=== PATIENT | female | born 1955 | race Caucasian/White ===

== ENCOUNTER 2022-06-20 13:39 | Emergency (ER) | payer MEDICARE, OTHER, SELFPAY ==
[2022-06-20] VITALS (11 sets, daily range): BP systolic 65–102; BP diastolic 39–55; PULSE 57–75; RESP 12–20; O2SAT 94–96; BMI 27.3
--- NOTE | 2022-06-20 14:07 | ECG_ITS ---
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 Measurements Intervals Snyder Rate: 75 P: 31 NH: 143 QRS: 28 QRSD: 93 T: 37 QT: 392 QTc: 438 Interpretive Statements SINUS RHYTHM MODERATE ST DEPRESSION [0.05+ mV ST DEPRESSION] Compared to ECG 12/06/2018 13:33:14 ST (T wave) deviation now present T-wave abnormality no longer present Electronically Signed On 06-20-2022 20:17:15 CDT by Brayden Figueroa M.D. [id number]
[2022-06-20] MEDS: sodium chloride 0.9% 1,000 ML 999 ML IV ×2 (14:13→14:49)
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
[2022-06-20 14:34] LABS: Basophils # 0.1 10^3/uL (0.0-0.1); Eosinophils # 0.4 10^3/uL (0.0-0.8); Eosinophils % 3.2 %; Hematocrit 46.3 % (37.0-47.0); Hemoglobin 16.2 g/dL (11.5-15.3); Lymphocytes # 5.7 10^3/uL (0.8-4.8); Lymphocytes % 51.2 %; Mean Corpuscular Hemoglobin 31.8 pg (28.0-34.0); Mean Platelet Volume 12.6 fL (7.4-10.4); Monocytes # 0.4 10^3/uL (0.2-0.9); Monocytes % 3.5 %; Neutrophils % 40.9 %; Nucleated Red Blood Cells % 0 %; Platelet Count 221 10^3/cmm (130-400); Red Blood Count 5.09 10^6/uL (4.1-5.3); Red Cell Distribution Width 12.9 % (12.1-15.1); White Blood Count 11.2 10^3/uL (4.0-10.0)
[2022-06-20 14:46] LABS: Alanine Aminotransferase 107 U/L (0-33); Albumin Level 4.7 g/dL (3.5-5.2); Alkaline Phosphatase 109 IU/L (35-105); Anion Gap 21.2 (5-19); Aspartate Amino Transferase 94 U/L (0-32); Blood Urea Nitrogen 17 mg/dL (8-23); Calcium 10.5 mg/dL (8.5-10.5); Carbon Dioxide 18 mmol/L (22-29); Chloride 97 mmol/L (98-107); Globulin 3.4 g/dL (1.3-4.6); Glomerular Filtration Rate 34.6 mL/min (90-130); Glucose 214 mg/dL (65-115); Magnesium 2.2 mg/dL (1.7-2.3); Osmolality Calculated 282 mOsm/kg (285-295); Potassium 4.2 mmol/L (3.5-5.1); Sodium 132 mmol/L (136-145); Total Bilirubin 0.6 mg/dL (0.15-1.2); Total Protein 8.1 g/dL (6.6-8.7)
[2022-06-20 15:18] LABS: Lactate (Lactic Acid level) 2.2 mmol/L (0.5-2.2)
[2022-06-20 16:02] LABS: Add Urine Microscopic? YES; Amphetamines Screen Urine Negative (Negative); Barbiturates Screen Urine Negative (Negative); Benzodiazepines Screen Urine Negative (Negative); Bilirubin Urine Neg (Negative); Blood Urine 3+ (Negative); Cocaine Screen Urine Negative (Negative); Glucose Urine UA 4+ (Normal); Ketones Urine Negative (Negative); Leukocyte Esterase Urine Trace (Negative); Nitrate Urine Negative (Negative); Opiate Screen Urine Negative (Negative); PCP Screen Urine Negative (Negative); Protein Urine 1+ (Negative); THC Screen Urine Negative (Negative); Urine Appearance Cloudy (CLEAR); Urine Color Yellow (Yellow); Urobilinogen Urine Norm (Negative); pH Urine 5 (5-7)
[2022-06-20 16:03] LABS: Bacteria Urine 4+ /hpf; Squamous Epithelial Cell Urine 0-4 /hpf (0-5); WBC Urine 15-25 /hpf (0-5)
[2022-06-20 16:04] LABS: Add Urine Culture? Yes
== END 2022-06-20 16:16 | disposition home or self-care (01) ==
PROVIDERS: Emergency Provider Student in an Organized Health Care Education/Training Program; PCP Internal Medicine
DX: N30.01 Acute cystitis with hematuria (principal); E86.0 Dehydration; Z79.02 Long term (current) use of antithrombotics/antiplatelets; Z79.82 Long term (current) use of aspirin; Z79.4 Long term (current) use of insulin; J44.9 Chronic obstructive pulmonary disease, unspecified; E13.9 Other specified diabetes mellitus without complications; E78.5 Hyperlipidemia, unspecified; I10 Essential (primary) hypertension; I25.2 Old myocardial infarction; F17.210 Nicotine dependence, cigarettes, uncomplicated; V89.2XXA Person injured in unspecified motor-vehicle accident, traffic, initial encounter
CPT/HCPCS: 80053; 80306; 81001; 83605; 83735; 85025; 86140; 87077; 87086; 87186; 93005; 96360; 96361; 99284; J7030

== ENCOUNTER 2022-06-30 17:57 | Emergency (ER) | payer MEDICARE, OTHER, SELFPAY ==
[2022-06-30 18:01] VITALS: BP 111/75; PULSE 63; RESP 17; TEMP 36.9; O2SAT 92; BMI 31.1
--- NOTE | 2022-06-30 18:14 | ED_ITS ---
HPI - General Adult General: Chief complaint: Neuro Symptoms/Deficit Stated complaint: AMS, DIABETIC Time Seen by Provider: 06/30/22 18:03 History of Present Illness: Patient is a 67-year-old female with a history of type 2 diabetes, CAD on Plavix presenting to the emergency room for concerns of hypoglycemia and altered mental status. Patient noted her glucose was running over 200s today. Patient took 16 units of short acting insulin shortly after, patient became obtunded. Patient is on found patient unresponsive and called EMS. When EMS arrived, patient had glucose of 74. Patient patient received a drip of D10 with improved glucose over 200. Patient now responsive alert and oriented and speaking. Patient denies any other concerns. His family report the patient was found on the ground. Since EMS administered patient with a D10 patient regained consciousness, patient has been unable to bear weight on the right foot which she claims she twisted earlier as she was falling. Onset:earlier today Duration:ongoing Location:home Severity:moderate Associated symptoms: Deny chest pain, dyspnea, nausea, rash, palpitations or vomiting Review of Systems Const: Denies: fever(s) or chills Eyes: Denies: change in vision ENMT: Denies: mouth pain Card: Denies: chest pain or palpitations Resp: Denies: dyspnea or non-productive cough GI: Denies: abdominal pain, nausea, vomiting or diarrhea : Denies: dysuria Musc: Reports: extremity pain (+R ankle pain and swelling) Skin/Breast: Denies: rash or new lesions Neuro: Denies: weakness in extremities Psych: Reports: other (Normal mood) Carlos/Lymph: Denies: easy bruising [facility] ED PFSH: Medical History (Updated 06/30/22 @ 21:44 by Lokesh Odom DPM) ASHD (arteriosclerotic heart disease) COPD (chronic obstructive pulmonary disease) Diabetes 1.5, managed as type 2 Dyslipidemia Essential hypertension Myocardial infarction Tobacco abuse Surgical History S/P PTCA (percutaneous transluminal coronary angioplasty) Family History Other CAD (coronary artery disease) Cancer Diabetes Social History Smoking and tobacco status: current every day smoker cigarettes Alcohol intake: never Physical Exam Const: COMMON NORMALS: alert HENMT: COMMON NORMALS: atraumatic HEAD & SCALP: atraumatic MOUTH: moist mucous membranes not abnormal Eye: COMMON NORMALS: EOMs intact bilaterally and conjunctivae normal CONJUNCTIVA: Yes conjunctivae normal Neck/C-Spine: COMMON NORMALS: full ROM and supple Resp: COMMON NORMALS: normal respiratory effort and clear to auscultation bilaterally AUSCULTATION: clear to auscultation bilaterally Cardio: COMMON NORMALS: regular rate RATE: regular rate GI: COMMON NORMALS: Soft to palpation and non-tender PALPATION: Yes Soft to palpation Extremity: COMMON NORMALS: full ROM OTHER: + Right ankle swelling and deformity, 2+ DP/TP pulses on the right lower extremity, cap refill less than 3 seconds, sensation intact in the right lower extremity, limited range of motion right ankle due to pain Neuro: SENSORIUM/ORIENTATION: Yes alert MOTOR EXAM: No Abnormal motor strength present and Other motor observations present (no focal motor deficits) OTHER: +transient altered mental status Psych: COMMON NORMALS: speech normal SPEECH: Yes normal speech MOOD & AFFECT: Yes euthymic mood Course Vital Signs: Vital signs: Vital Signs Temperature 98.4 F 06/30/22 18:01 Pulse Rate 74 06/30/22 21:00 Respiratory Rate 16 06/30/22 21:51 Blood Pressure 107/55 06/30/22 21:00 Pulse Oximetry 96 06/30/22 21:00 Oxygen Delivery Me thod 06/30/22 19:27 MDM - General Adult Medical Decision Making 67-year-old female with history of type 2 diabetes presenting to the emergency room for concerns of altered mental status and hypoglycemia transiently. On arrival, patient is AAOx3, answering all questions appropriately. Patient is neurologically intact. Patient is noted to have hypotension with blood pressure 82/44. Heart rate appears to be normal. Patient initially on arrival had a glucose greater than 120. Patient received NS and repeat blood pressure appears to be improving. Lab work-up is largely unremarkable. X-ray of the foot showed trimalleolar fracture. CT of the head is negative for any acute finding. I discussed with Dr. Odom who performed a hematoma block in the emergency room and reduce the trimalleolar fracture and placed patient in a splint. Dr. Odom would like patient to be seen in clinic tomorrow. Patient's glucose improved on serial reassessment. The fact the patient took novolog 6 hours and patient has multiple serial readings of glucoses with improvement, patient is stable for close outpatient follow-up. I have given patient follow up with our piano case maker to be seen by our outpatient Podiatry for trimalleolar fx. Patient aware of a call from our piano case maker to schedule for appointment(s) and verbalizes understanding of the importance of following up. Disposition: Discharge. Patient counseled regarding diagnostic impression, treatment plan. Patient given ED strict return precautions to return for continuation, worsening, or development of new symptoms. Instructed to f/u w/ PCP and podiatry regarding symptoms today. Patient verbalized understanding. Lab Data : 06/30/22 18:30 06/30/22 18:30 Radiology Impressions Foot X-Ray 06/30/22 18:21 IMPRESSION: 1. Trimalleolar fracture previously described on ankle radiographs. 2. No additional fracture, subluxation, or dislocation detected. Ankle X-Ray 06/30/22 20:24 IMPRESSION: Previously noted tri malleolar fractures have been reduced with significant improvement in alignment of fracture fragments. Minimal cortical step-off remains. Laboratory Results WBC 12.8 10^3/uL (4.0-10.0) H 06/30/22 18: RBC 4.34 10^6/uL (4.1-5.3) 06/30/22 18:30 Hgb 14.0 g/dL (11.5-15.3) 06/30/22 18: Hct 43.0 % (37.0-47.0) 06/30/22 18: MCV 99.1 fl (81-99) H 06/30/22 18:30 MCH 32.3 pg (28.0-34.0) 06/30/22 18: MCHC 32.6 g/dL (30.0-36.0) 06/30/22 18: RDW 14.2 % (12.1-15.1) 06/30/22 18: Plt Count 187 10^3/cmm (130-400) 06/30/22 18: MPV 12.5 fL (7.4-10.4) H 06/30/22 18: Neut % (Auto) 67.9 % 06/30/22 18:30 Lymph % (Auto) 23.5 % 06/30/22 18:30 [place] % (Auto) 4.3 % 06/30/22 18:30 Eos % (Auto) 3.0 % 06/30/22 18:30 Baso % (Auto) 0.8 % 06/30/22 18:30 Neut # (Auto) 8.72 10^3/uL (1.8-7.7) H 06/30/22 18:30 Lymph # (Auto) 3.0 10^3/uL (0.8-4.8) 06/30/22 18:30 [place] # (Auto) 0.6 10^3/uL (0.2-0.9) 06/30/22 18:30 Eos # (Auto) 0.4 10^3/uL (0.0-0.8) 06/30/22 18:30 Baso # (Auto) 0.1 10^3/uL (0.0-0.1) 06/30/22 18:30 Nucleated RBC % (auto) 0 % 06/30/22 18: Nucleated RBCs # 0.0 /100WBC 06/30/22 18:30 Sodium 140 mmol/L (136-145) 06/30/22 18: Potassium 3.5 mmol/L (3.5-5.1) 06/30/22 18:30 Chloride 100 mmol/L (98-107) 06/30/22 18: Carbon Dioxide 24 mmol/L (22-29) 06/30/22 18:30 Anion Gap 19.5 (5-19) H 06/30/22 18:30 BUN 10 mg/dL (8-23) 06/30/22 18:30 Creatinine 1.4 mg/dL (0.5-0.9) H 06/30/22 18:30 GFR Calculation 37.5 mL/min (90-130) L 06/30/22 18: Glucose 79 mg/dL (65-115) 06/30/22 18: POC Glucose 202 mg/dL (70-110) H 06/30/22 21:12 Calculated Osmolality 288 mOsm/kg (285-295) 06/30/22 18: Calcium 9.7 mg/dL (8.5-10.5) 06/30/22 18:30 Total Bilirubin 0.6 mg/dL (0.15-1.2) 06/30/22 18:30 AST 86 U/L (0-32) H 06/30/22 18:30 ALT 63 U/L (0-33) H 06/30/22 18:30 Alkaline Phosphatase 79 IU/L (35-105) 06/30/22 18:30 Total Protein 7.0 g/dL (6.6-8.7) 06/30/22 18:30 Albumin 4.4 g/dL (3.5-5.2) 06/30/22 18:30 Globulin 2.6 g/dL (1.3-4.6) 06/30/22 18:30 Imaging Data Other Imaging: Radiologist's impression: [address] [place] [address] XRay Report Signed Patient: Lolita Sellers Unit #: [id number] : 1955 Age/Sex: 67 / F ADM Date: 06/30/22 Loc: ER Room/Bed: Attending Dr: Ordering Provider/Ordering MD: Selwyn Kerns MD Date of Service: 06/30/22 Procedure(s): XR ankle RT min 3V* [id number] Accession Number(s): [id number] Report Number: [id number] PROCEDURE INFORMATION: Exam: XR Right Ankle Exam date and time: 06/30/2022 8:12 PM Age: 67 years old Clinical indication: Pain; Ankle; Right; Additional info: Post reduction TECHNIQUE: Imaging protocol: Radiologic exam of the Right ankle. Views: 3 or more views. Total images: 2 COMPARISON: CR XR ankle RT min 3V* [id number] 06/30/2022 6:39 PM FINDINGS: Bones/joints: Previously noted tri malleolar fractures have been reduced with significant improvement in alignment of fracture fragments. Minimal cortical step-off remains. Soft tissues: Normal. XR/XR ankle RT min 3V* [id number] IMPRESSION: Previously noted tri malleolar fractures have been reduced with significant improvement in alignment of fracture fragments. Minimal cortical step-off remains. ? Dictated By: Haresh Gomez MD Signed By: Haresh Gomez MD Signed Date/Time: 06/30/222043 DD/ [address] [place] [address] XRay Report Signed Patient: Lolita Sellers Unit #: [id number] : 1955 Age/Sex: 67 / F ADM Date: 06/30/22 Loc: ER Room/Bed: Attending Dr: Ordering Provider/Ordering MD: Selwyn Kerns MD Date of Service: 06/30/22 Procedure(s): XR foot RT 2V 84369 Accession Number(s): [id number] Report Number: [id number] PROCEDURE INFORMATION: Exam: XR Right Foot Exam date and time: 06/30/2022 6:35 PM Age: 67 years old Clinical indication: Pain; Ankle; Right; Additional info: R ankle deformity TECHNIQUE: Imaging protocol: Radiologic exam of the Right foot. Views: 1 or 2 views. Total images: 3 COMPARISON: No relevant prior studies available. FINDINGS: Bones/joints: Trimalleolar fracture previously described on ankle radiographs. No additional fracture, subluxation, or dislocation detected. An enthesophyte is noted at the Achilles tendon insertion site. Soft tissues: Normal. XR/XR foot RT 2V [id number] IMPRESSION: 1. Trimalleolar fracture previously described on ankle radiographs. 2. No additional fracture, subluxation, or dislocation detected. ? Dictated By: Haresh Gomez MD Signed By: Haresh Gomez MD Signed Date/Time: 06/30/221946 DD/ [address] [place] [address] XRay Report Signed Patient: Lolita Sellers Unit #: [id number] : 1955 Age/Sex: 67 / F ADM Date: 06/30/22 Loc: ER Room/Bed: Attending Dr: Ordering Provider/Ordering MD: Selwyn Kerns MD Date of Service: 06/30/22 Procedure(s): XR ankle RT min 3V* [id number] Accession Number(s): [id number] Report Number: [id number] PROCEDURE INFORMATION: Exam: XR Right Ankle Exam date and time: 06/30/2022 6:39 PM Age: 67 years old Clinical indication: Pain; Ankle; Right; Additional info: R ankle deformity TECHNIQUE: Imaging protocol: Radiologic exam of the Right ankle. Views: 3 or more views. Total images: 2 COMPARISON: CR XR foot RT 2V [id number] 06/30/2022 6:35 PM FINDINGS: Bones/joints: Minimally displaced transverse medial malleolar fracture. Oblique fracture of the distal metadiaphyseal area of the right fibula. There is approximately 30 degrees dorsal angulation of the distal fragment. Posterior malleolar fracture with approximate 1 cm proximal displacement of the posterior fragment. No additional fracture, subluxation, or dislocation detected. Soft tissues: Normal. XR/XR ankle RT min 3V* [id number] IMPRESSION: 1. Minimally displaced transverse medial malleolar fracture. 2. Oblique fracture of the distal metadiaphyseal area of the right fibula. There is approximately 30 degrees dorsal angulation of the distal fragment. 3. Posterior malleolar fracture with approximate 1 cm proximal displacement of the posterior fragment. ? Dictated By: Haresh Gomez MD Signed By: Haresh Gomez MD Signed Date/Time: 06/30/221946 DD/ 38 Discharge Plan Discharge Patient Disposition: Home Clinical Impression: Hypoglycemia, Closed trimalleolar fracture Condition: Stable Prescriptions: New Percocet 5-325 mg tablet 1 tab PO Q8H PRN (Reason: pain) Qty: 9 0RF No Action Lantus U-100 Insulin 100 unit/mL solution 100 unit SUBCUT DAILY metoprolol tartrate 25 mg tablet 25 mg PO BID Qty: 180 3RF Breo Ellipta 200-25 mcg/dose blister with device 1 inh INHALATION DAILY ropinirole [Requip] 0.25 mg tablet 0.25 mg PO DAILY omeprazole 40 mg capsule,delayed release(DR/EC) 40 mg PO DAILY aspirin [Aspir-81] 81 mg tablet,delayed release (DR/EC) 81 mg PO DAILY clopidogrel 75 mg tablet 75 mg PO DAILY insulin aspart U-100 [Novolog Flexpen U-100 Insulin] 100 unit/mL (3 mL) insulin pen 5 unit SUBCUT TID PRN montelukast [Singulair] 10 mg tablet 10 mg PO DAILY albuterol sulfate [Ventolin HFA] 90 mcg/actuation HFA aerosol inhaler 2 puff INHALATION Q6H PRN gabapentin 400 mg capsule 400 mg PO QID nitroglycerin [Nitrostat] 0.4 mg tablet, sublingual 0.4 mg SUBLINGUAL Q5M PRN (Reason: chest pain) Qty: 25 3RF Rx Instructions: do not exceed 3 doses per episode rosuvastatin 40 mg tablet 40 mg PO DAILY Qty: 90 2RF lisinopril 20 mg tablet 20 mg PO DAILY Qty: 90 3RF Discharge Orders: Discharge ED (Routine); Ordered 06/30/22 Ordered By: Selwyn Kerns Referrals: Rogelio Aldridge DO [Primary Care Provider] - Discharge Diet: Advance as tolerated Discharge Activity: Increase activity as tolerated Patient Instructions: Opioid Safety Activity Restrictions/Additional Instructions: Our piano case maker will have you follow-up with Dr. Odom in the next few days. You would be expected to have a phone call with our piano case maker who will put you on the schedule. You can expect a call from us in the next 2-3 days. If you don't hear from us, call us back in the emergency room at [phone]. Coding Level of Care Code ED Voice Over Announcer for Edilia Oquendo Exam Comprehensive
[2022-06-30 18:15] VITALS: BP 84/41; PULSE 63; RESP 16; O2SAT 96
[2022-06-30 18:15] LABS: Glucose Point of Care 126 mg/dL (70-110)
--- NOTE | 2022-06-30 18:21 | XRR_ITS ---
PROCEDURE INFORMATION: Exam: XR Right Ankle Exam date and time: 06/30/2022 6:39 PM Age: 67 years old Clinical indication: Pain; Ankle; Right; Additional info: R ankle deformity TECHNIQUE: Imaging protocol: Radiologic exam of the Right ankle. Views: 3 or more views. Total images: 2 COMPARISON: CR XR foot RT 2V [id number] 06/30/2022 6:35 PM FINDINGS: Bones/joints: Minimally displaced transverse medial malleolar fracture. Oblique fracture of the distal metadiaphyseal area of the right fibula. There is approximately 30 degrees dorsal angulation of the distal fragment. Posterior malleolar fracture with approximate 1 cm proximal displacement of the posterior fragment. No additional fracture, subluxation, or dislocation detected. Soft tissues: Normal. XR/XR ankle RT min 3V* [id number] IMPRESSION: 1. Minimally displaced transverse medial malleolar fracture. 2. Oblique fracture of the distal metadiaphyseal area of the right fibula. There is approximately 30 degrees dorsal angulation of the distal fragment. 3. Posterior malleolar fracture with approximate 1 cm proximal displacement of the posterior fragment.
--- NOTE | 2022-06-30 18:21 | XRR_ITS ---
PROCEDURE INFORMATION: Exam: XR Right Foot Exam date and time: 06/30/2022 6:35 PM Age: 67 years old Clinical indication: Pain; Ankle; Right; Additional info: R ankle deformity TECHNIQUE: Imaging protocol: Radiologic exam of the Right foot. Views: 1 or 2 views. Total images: 3 COMPARISON: No relevant prior studies available. FINDINGS: Bones/joints: Trimalleolar fracture previously described on ankle radiographs. No additional fracture, subluxation, or dislocation detected. An enthesophyte is noted at the Achilles tendon insertion site. Soft tissues: Normal. XR/XR foot RT 2V [id number] IMPRESSION: 1. Trimalleolar fracture previously described on ankle radiographs. 2. No additional fracture, subluxation, or dislocation detected.
[2022-06-30] MEDS: sodium chloride 0.9% 1,000 ML 999 ML IV ×2 (18:37→18:38)
[2022-06-30 18:43] LABS: Basophils # 0.1 10^3/uL (0.0-0.1); Basophils % 0.8 %; Eosinophils # 0.4 10^3/uL (0.0-0.8); Lymphocytes % 23.5 %; Mean Corpuscular HGB Conc 32.6 g/dL (30.0-36.0); Mean Corpuscular Hemoglobin 32.3 pg (28.0-34.0); Mean Corpuscular Volume 99.1 fl (81-99); Mean Platelet Volume 12.5 fL (7.4-10.4); Monocytes # 0.6 10^3/uL (0.2-0.9); Monocytes % 4.3 %; Neutrophils # 8.72 10^3/uL (1.8-7.7); Neutrophils % 67.9 %; Nucleated Red Blood Cells % 0 %; Platelet Count 187 10^3/cmm (130-400); Red Blood Count 4.34 10^6/uL (4.1-5.3); Red Cell Distribution Width 14.2 % (12.1-15.1); White Blood Count 12.8 10^3/uL (4.0-10.0)
[2022-06-30 18:58] VITALS: RESP 18
[2022-06-30] MEDS: fentaNYL 50 mcg/mL INJ 2mL IVP (18:58)
[2022-06-30 19:11] LABS: Glucose Point of Care 72 mg/dL (70-110)
[2022-06-30 19:12] LABS: Alanine Aminotransferase 63 U/L (0-33); Albumin Level 4.4 g/dL (3.5-5.2); Alkaline Phosphatase 79 IU/L (35-105); Anion Gap 19.5 (5-19); Aspartate Amino Transferase 86 U/L (0-32); Blood Urea Nitrogen 10 mg/dL (8-23); Calcium 9.7 mg/dL (8.5-10.5); Carbon Dioxide 24 mmol/L (22-29); Chloride 100 mmol/L (98-107); Globulin 2.6 g/dL (1.3-4.6); Glomerular Filtration Rate 37.5 mL/min (90-130); Glucose 79 mg/dL (65-115); Osmolality Calculated 288 mOsm/kg (285-295); Potassium 3.5 mmol/L (3.5-5.1); Sodium 140 mmol/L (136-145); Total Bilirubin 0.6 mg/dL (0.15-1.2)
[2022-06-30] MEDS: dextrose 10% 250 ML 125 ML IV (19:26)
[2022-06-30 19:27] VITALS: BP 116/66; PULSE 74; RESP 16; O2SAT 92
--- NOTE | 2022-06-30 20:24 | XRR_ITS ---
PROCEDURE INFORMATION: Exam: XR Right Ankle Exam date and time: 06/30/2022 8:12 PM Age: 67 years old Clinical indication: Pain; Ankle; Right; Additional info: Post reduction TECHNIQUE: Imaging protocol: Radiologic exam of the Right ankle. Views: 3 or more views. Total images: 2 COMPARISON: CR XR ankle RT min 3V* [id number] 06/30/2022 6:39 PM FINDINGS: Bones/joints: Previously noted tri malleolar fractures have been reduced with significant improvement in alignment of fracture fragments. Minimal cortical step-off remains. Soft tissues: Normal. XR/XR ankle RT min 3V* [id number] IMPRESSION: Previously noted tri malleolar fractures have been reduced with significant improvement in alignment of fracture fragments. Minimal cortical step-off remains.
[2022-06-30 20:28] LABS: Glucose Point of Care 165 mg/dL (70-110)
[2022-06-30 21:00] VITALS: BP 107/55; PULSE 74; RESP 14; O2SAT 96
[2022-06-30 21:17] LABS: Glucose Point of Care 202 mg/dL (70-110)
--- NOTE | 2022-06-30 21:39 | PM.CONSULT ---
Providers/Reason For Consult Consulting Physician/Specialty*: Lokesh Odom D.P.M. Reason for Consult*: Right trimalleolar fracture Primary Care Provider: Rogelio Aldridge DO History of Present Illness History of Present Illness Lolita Sellers is a 67 year old female presents with right ankle fracture that occurred from slipping at home. Was hypoglycemic with glucose at 74 on arrival of EMS. Patient is conversational now in the emergency department. Her is bedside. No open fracture. Gross deformity appreciated at the right ankle. No other complaints. Patient denies any subjective nausea, vomiting, fever, chills, shortness of breath or chest pain. Review of Systems Const: Denies: fever(s), chills or fatigue Eyes: Denies: change in vision Card: Reports: swelling of feet/ankles; Denies: chest pain or palpitations Resp: Denies: dyspnea GI: Denies: abdominal pain, nausea, vomiting, diarrhea or constipation Musc: Reports: extremity pain Skin/Breast: Denies: changes in skin color Neuro: Reports: difficulty walking; Denies: numbness in extremities Medications/Allergies Home Medications Medication Instructions Recorded Confirmed Last Taken Type albuterol sulfate 90 mcg/actuation 2 puff inhalation Q6H PRN 05/07/20 06/20/20 Unknown History aerosol inhaler (Ventolin HFA) aspirin 81 mg tablet,delayed 81 mg PO DAILY 05/07/20 06/20/20 Unknown History release (Aspir-) clopidogrel 75 mg tablet 75 mg PO DAILY 05/07/20 06/20/20 Unknown History fluticasone furoate 200 1 inh inhalation DAILY 05/07/20 06/20/20 Unknown History mcg-vilanterol 25 mcg/dose inhalation powder (Breo Ellipta) insulin aspart U-100 100 unit/mL 5 unit SUBCUT TID PRN 05/07/20 06/20/20 Unknown History (3 mL) subcutaneous pen (Novolog Flexpen U-100 Insulin aspart) montelukast 10 mg tablet 10 mg PO DAILY 05/07/20 06/20/20 Unknown History (Singulair) omeprazole 40 mg capsule,delayed 40 mg PO DAILY 05/07/20 06/20/20 Unknown History release ropinirole 0.25 mg tablet (Requip) 0.25 mg PO DAILY 05/07/20 06/20/20 Unknown History nitroglycerin 0.4 mg sublingual 0.4 mg sublingual Q5M PRN chest 12/24/20 12/24/20 Unknown Rx tablet (Nitrostat) pain #25 tabs rosuvastatin 40 mg tablet 40 mg PO DAILY #90 tabs 09/04/21 Unknown Rx gabapentin 400 mg capsule 400 mg PO QID 12/30/21 Unknown History insulin glargine 100 unit/mL 100 unit SUBCUT DAILY 12/30/21 Unknown History subcutaneous solution (Lantus U-100 Insulin) metoprolol tartrate 25 mg tablet 25 mg PO BID #180 tabs 12/30/21 12/30/21 Unknown Rx lisinopril 20 mg tablet 20 mg PO DAILY #90 tabs 02/18/22 Unknown Rx oxycodone-acetaminophen 5 mg-325 1 tab PO Q8H PRN pain #9 tabs 06/30/22 Unknown Rx mg tablet (Percocet) Allergies Allergy/AdvReac Type Severity Reaction Status Date / Time Penicillins Allergy ALGY-Rash Verified 12/30/21 14:28 Current Medications Generic Name Dose Route Start Last Admin Trade Name Freq PRN Reason Stop Dose Admin Dextrose 250 mls @ 125 mls/hr 06/30/22 19:15 06/30/22 19:26 D10w IV 125 mls/hr .Q2H KENDALL Administration PFSH Acute PFSH: Medical History (Updated 06/30/22 @ 21:44 by Lokesh Odom DPM) ASHD (arteriosclerotic heart disease) COPD (chronic obstructive pulmonary disease) Diabetes 1.5, managed as type 2 Dyslipidemia Essential hypertension Myocardial infarction Tobacco abuse Surgical History S/P PTCA (percutaneous transluminal coronary angioplasty) Family History Other CAD (coronary artery disease) Cancer Diabetes Social History Smoking and tobacco status: current every day smoker cigarettes Alcohol intake: never Vitals/I&O/Wt Last Vital Signs Temp 98.4 F 06/30/22 18:01 Pulse 74 06/30/22 21:00 Resp 14 06/30/22 21:00 BP 107/55 08/02/22 21:00 Pulse Ox 96 06/30/22 21:00 O2 Del Method 06/30/22 19:27 06/30/22 06/30/22 06/30/22 06:59 14:59 22:59 Intake Total 1016.65 / 1016.65 Balance 1016.65 / 1016.65 Weight last 48 hrs Weight 165 lb Physical Exam Narrative: GENERAL: Patient is alert and oriented ?3 and in no acute distress. The following is a focused bilateral lower extremity exam. Accompanied by her . VASCULAR: Dorsalis pedis palpable, posterior tibial arteries palpable. Capillary refill time less than 3 seconds to the distal hallux bilaterally. Calf is supple and nontender proximally and distally. Minimal edema to the right ankle. No increased warmth to the right ankle. NEUROLOGICAL: Protective sensation diminished to light touch. DERMATOLOGICAL: Skin is well hydrated normal texture and turgor. No lacerations, no fracture blisters, minimal edema. MUSCULOSKELETAL: Able to wiggle toes on command. Gross deformity to the right ankle, tibia is dislocated anteriorly. No pain at high fibula. Data : 06/30/22 18:30 06/30/22 18:30 A&P Assessment and plan (1) Closed right trimalleolar fracture: Status: Acute (2) Fall: Status: Acute Plan 67-year-old diabetic female last A1c on file was 13.8 on 12/06/2018, sustained right closed trimalleolar fracture with dislocation, fell at her home this evening. Brought to ED by EMS, hypoglycemia noted. After obtaining verbal consent a closed reduction without anesthesia was performed secondary to neuropathy patient experienced minimal discomfort, no pain post reduction. Post reduction x-ray shows congruent ankle mortise with talus well aligned within the tibiotalar joint. Fibula is out to length and improvement of the posterior malleolus fracture also appreciated. Patient was splinted with ankle joint in neutral at 90 degrees with a multilayer well-padded compressive posterior splint. I advised her to discontinue her anticoagulants in preparation for ORIF which will be done outpatient. Patient is to follow-up in my clinic, [facility] podiatry with Dr. Odom 07/01/2022 at 4:15 PM for soft tissue evaluation in preparation for surgery or Wednesday this week. She is to remain strict nonweightbearing already has crutches and a wheelchair at home. Coding Level of Care Code Acute Store Team Member for Chg Fwd Diagnoses Closed right trimalleolar fracture S82.851A Fall W19.XXXA
[2022-06-30 21:51] VITALS: RESP 16
[2022-06-30] MEDS: HYDROmorphone 1 mg/mL INJ 1 mL 0.5 MG IVP (21:51)
--- NOTE | 2022-07-01 20:34 | DCPLANNER ---
Addendum entered by Shaista Frias 07/10/22 11:48: Patient had a follow up appointment scheduled for 07.01.[address] Odom at ortho - patient did attend appointment. Original Note: manager sas had message to schedule a follow up appointment for patient with ortho. manager sas sent patients information to the front office staff at ortho. Patients information will be printed and reviewed. Clinic will call patient with appointment information.
== END 2022-06-30 21:32 | disposition home or self-care (01) ==
PROVIDERS: Emergency Provider Emergency Medicine; PCP Internal Medicine
DX: E13.649 Other specified diabetes mellitus with hypoglycemia without coma (principal); S82.851A Displaced trimalleolar fracture of right lower leg, initial encounter for closed fracture; Z79.02 Long term (current) use of antithrombotics/antiplatelets; Z79.82 Long term (current) use of aspirin; Z79.4 Long term (current) use of insulin; J44.9 Chronic obstructive pulmonary disease, unspecified; E78.5 Hyperlipidemia, unspecified; I10 Essential (primary) hypertension; I25.2 Old myocardial infarction; F17.210 Nicotine dependence, cigarettes, uncomplicated; X50.1XXA Overexertion from prolonged static or awkward postures, initial encounter
CPT/HCPCS: 36416; 73610; 73620; 80053; 82962; 85025; 96361; 96374; 96375; 99284; E0114; J1170; J3010; J7030; J7799

== ENCOUNTER → 2022-07-01 16:08 | Outpatient (BNVA) | payer MEDICARE, OTHER, SELFPAY | PROVIDERS: PCP Internal Medicine; Visit Provider Podiatrist Foot & Ankle Surgery | DX: W19.XXXA Unspecified fall, initial encounter (principal); S82.851A Displaced trimalleolar fracture of right lower leg, initial encounter for closed fracture | CPT/HCPCS: 27816; 99214 ==

== ENCOUNTER 2022-07-02 05:47 | Day surgery (SDC) | payer MEDICARE, OTHER, SELFPAY ==
[2022-07-01 14:38] VITALS: BMI 27.9
[2022-07-02] VITALS (10 sets, daily range): BP systolic 93–158; BP diastolic 55–79; PULSE 67–90; RESP 12–21; TEMP 36.6–37.5; O2SAT 92–98
--- NOTE | 2022-07-02 | SCC_ITS ---
Procedure done: Open reduction internal fixation right trimalleolar fracture. CPT code 34351 48 seconds of fluoroscopic guidance, for a cumulative dose of 0.845 mGy, was provided to Dr. Odom by the radiology department. C-arm images of the RT ankle were saved for the patient's permanent record. [facility]
--- NOTE | 2022-07-02 06:10 | ANES.PREANE2 ---
Pre-Anesthetic Assessment Height/Weight: Height 1.55 m Weight 67.132 kg Temp Pulse Resp BP Pulse Ox O2 Del Method 97.9 F 67 17 121/69 97 07/02/22 06:05 07/02/22 06:05 07/02/22 06:05 07/02/22 06:05 07/02/22 06:05 07/02/22 06:05 Preop Diagnosis: Right trimalleolar fracture Operation Date: 07/02/22 07:00 Proposed Procedures p Open reduction internal fixation right trimalleolar fracture 52980,S82.851A(Right) - Lokesh Odom DPM Familial anesthetic complications: none Was Beta Madison taken within 24 hours: Yes Was Clonidine taken within 24 hours: N/A Social Tobacco and No alcohol Exam alert, oriented x 3, clear to auscultation bilaterally and regular rate & rhythm Airway Submandibular: within normal limits Cervical ROM: within normal limits Mallampati: Class II Dentition: full Pulmonary Chronic Obstructive Pulmonary Disease CV/HEM Coronary Artery Disease (s/p stent 2017) and Hypertension METS > 4 Chronic Renal Insufficiency Hepatic None reported GI Gastroesophageal Reflux Disease (Well controlled ) Metabolic Diabetes Mellitus [facility] Lower Back Pain Fracture Neuropsych None reported Anesthetic Plan ASA status: 3 Anesthesia: Anesthesia Evaluation, General, MAC and Regional (specify below) (Popliteal and adductor canal blocks for post op pain control) Other: We discussed risk and benefits of general anesthesia including PONV, sore throat (sometimes severe), corneal abrasion, positioning and peripheral nerve injuries, life threatening allergic reaction, post operative ICU admission requiring prolonged intubation, aspiration, stroke, heart attack, , and rare incidences of recall. I discussed with the patient risks, goals, and benefits of MAC and general anesthesia. We discussed spectrum of MAC anesthesia including conversion to general as well as possibility of recall of intraoperative stimuli including discomfort/pain. Patient consents to MAC or General pending further discussion with surgeon. After time out sterile prep, using sterile technique, and using real time US guidance for target selection needle was inserted with real time visualization of needle entry and real time visualization of needle advancement toward intended target. Negative aspiration. LA injected incrementally with negative aspiration every 5 cc and real time US visualization of LA spread throughout procedure. Tolerated well. Image(s) saved. Patient consents to popliteal and adductor canal blocks for post op pain control with general or MAC pending conversation with surgeon 10 units insulin ordered pre op. Risk of > 500 ml blood loss (7ml/kg in children): No Medications/Allergies Home Medications Medication Instructions Recorded Confirmed Last Taken Type albuterol sulfate 90 mcg/actuation 2 puff inhalation Q6H PRN 05/07/20 07/02/22 07/02/22 05:00 History aerosol inhaler (Ventolin HFA) Bronchospasm aspirin 81 mg tablet,delayed 81 mg PO DAILY 05/07/20 07/02/22 07/01/22 History release (Aspir-) clopidogrel 75 mg tablet 75 mg PO DAILY 05/07/20 07/01/22 06/30/22 History fluticasone furoate 200 1 inh inhalation DAILY 05/07/20 07/01/22 Unknown History mcg-vilanterol 25 mcg/dose inhalation powder (Breo Ellipta) insulin aspart U-100 100 unit/mL 5 unit SUBCUT TID PRN Hyperglycemia 05/07/20 07/02/22 07/01/22 14:00 History (3 mL) subcutaneous pen (Novolog Flexpen U-100 Insulin aspart) montelukast 10 mg tablet 10 mg PO DAILY 05/07/20 07/02/22 07/02/22 05:00 History (Singulair) omeprazole 40 mg capsule,delayed 40 mg PO DAILY 05/07/20 07/02/22 07/02/22 05:00 History release ropinirole 0.25 mg tablet (Requip) 0.25 mg PO DAILY 05/07/20 07/02/22 07/01/22 21:00 History nitroglycerin 0.4 mg sublingual 0.4 mg sublingual Q5M PRN chest 12/24/20 07/02/22 Unknown Rx tablet (Nitrostat) pain #25 tabs rosuvastatin 40 mg tablet 40 mg PO DAILY #90 tabs 09/04/21 07/02/22 07/01/22 21:00 Rx gabapentin 400 mg capsule 400 mg PO QID 12/30/21 07/02/22 07/02/22 05:00 History insulin glargine 100 unit/mL 100 unit SUBCUT DAILY 12/30/21 07/02/22 06/30/22 History subcutaneous solution (Lantus U-100 Insulin) metoprolol tartrate 25 mg tablet 25 mg PO BID #180 tabs 12/30/21 07/02/22 07/02/22 05:00 Rx lisinopril 20 mg tablet 20 mg PO DAILY #90 tabs 02/18/22 07/02/22 07/02/22 05:00 Rx metformin 500 mg tablet 500 mg PO 1XD 07/01/22 07/02/22 07/02/22 05:00 History oxycodone-acetaminophen 7.5 mg-325 1 tab PO Q6H PRN pain 7 days #21 07/02/22 Unknown Rx mg tablet (Percocet) tabs Allergies Allergy/AdvReac Type Severity Reaction Status Date / Time Penicillins Allergy ALGY-Rash Verified 07/02/22 06:06 [facility] Anesthesia Medical History ASHD (arteriosclerotic heart disease) COPD (chronic obstructive pulmonary disease) Diabetes 1.5, managed as type 2 Dyslipidemia Essential hypertension Myocardial infarction Tobacco abuse Surgical History S/P PTCA (percutaneous transluminal coronary angioplasty) Family History Other CAD (coronary artery disease) Cancer Diabetes Social History Smoking and tobacco status: current every day smoker cigarettes Alcohol intake: never Data Anesthesia Cardiac Studies: No Data to Display
[2022-07-02] MEDS: CELEcoxib 200 mg Capsule 400 MG PO (06:30)
[2022-07-02] MEDS: sodium chloride 0.9% 1,000 ML 30 ML IV (06:30)
--- NOTE | 2022-07-02 06:31 | W.PM.OPSUD ---
Surgery/Procedure H&P Update DATE OF PROCEDURE: July 02, 2022 DATE H&P PERFORMED: 06/30/22 CHANGES TO PREVIOUS DOCUMENTATION: None PREOP DIAGNOSIS: Right trimalleolar fracture PLANNED PROCEDURE: Operation Date: 07/02/22 07:00 Proposed Procedures p Open reduction internal fixation right trimalleolar fracture 70811,S82.851A(Right) - Lokesh Odom DPM
--- NOTE | 2022-07-02 06:33 | P.OP_ITS ---
Operative Report Date of procedure: July 02, 2022 Pre-op diagnosis: Right trimalleolar fracture Post-op diagnosis: Same Post-op findings: None Procedure done: Open reduction internal fixation right trimalleolar fracture. CPT code 47434 Implants: [place] Specimens removed/disposition: None Pathology: None Surgeon: Lokesh Odom D.P.M. 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 Brief History: 67-year-old diabetic female last A1c on file was 13.8 on 12/06/2018, sustained right closed trimalleolar fracture with dislocation, fell at her home this evening. Brought to ED by EMS, hypoglycemia noted. ? After obtaining verbal consent a closed reduction without anesthesia was performed secondary to neuropathy patient experienced minimal discomfort, no pain post reduction. Post reduction x-ray shows congruent ankle mortise with talus well aligned within the tibiotalar joint. Fibula is out to length and improvement of the posterior malleolus fracture also appreciated. Patient was splinted with ankle joint in neutral at 90 degrees with a multilayer well-padded compressive posterior splint hold anticoagulants.? Soft tissue envelope is intact, no lesions, sores or fracture blisters, no breakdown of skin.? Proceeding with open reduction internal fixation right ankle tomorrow morning 07/02/2022 will be outpatient under general anesthetic.? Risks include but are not limited to pain, bleeding, numbness, flexion, hardware failure, hardware irrita tion, delayed union, malunion, nonunion.? DVT, heart attack, stroke and .? Also risk for posttraumatic arthritis to the right ankle and need for further surgical intervention. Procedure: Under mild sedation the patient was brought to the operating room and placed on the operating table in supine position. A timeout was performed. Anesthesia w as then administered by the anesthesia service. Preoperatively a popliteal block was administered per anesthesia service this was greatly appreciated. Patient tolerated popliteal block well and anesthesia was established. Well- padded pneumatic tourniquet was applied to the high right calf. The right lower extremity was then scrubbed, prepped and draped utilizing normal aseptic technique. Right lower extremity was then exanguinated with an Esmarch bandage and the tourniquet inflated to 250 mmHg. Attention was directed to the lateral aspect of the right ankle where directly over the lateral malleolus a linear longitudinal incision was made with #15 blade through skin with dissection carried down through subcutaneous tissue down the layer of periosteum utilizing a combination of sharp and blunt technique. Care was taken to retract and preserve neurovascular and tendinous structures. All bleeders were ligated and cauterized as necessary. Periosteal incision was made, oblique fracture of the distal fibula consistent with a Baljit Grimaldo B was distracted and curettaged of hematoma followed by reduction and temporary fixation with [id number] reduction forceps. Next utilizing standard AO technique a one third tubular plate was utilized to fixate the fibular fracture with excellent bony apposition and compression noted with intraoperative fluoroscopy confirming that the screws did not violate the ankle joint. The fibula was pulled out to length and derotated and was in anatomic position. Incision was flushed with saline solution. Further 3 views of ankle intraoperative showed congruent ankle mortise and excellent placement of hardware in all 3 views. The incision was then closed in a layered fashion with 2-0 Vicryl at periosteum, 3-0 Vicryl subcutaneous tissue and skin lauren. Of note this was a Smita one third tubular plate with locking screws 3.5 mm. Attention was directed to the medial ankle where under the AP and oblique views and live fluoroscopy percutaneously to screws 3.5 mm in diameter and solid screws provided by [place] with excellent bony apposition and compression noted utilizing standard AO technique 2 screw fixation of the medial malleolus percutaneous was achieved not violating the ankle mortise on AP or oblique view/mortise view and noted to be within the tibia on the lateral view. Posterior malleolus was reduced utilizing ligamental taxis and was near anatomic. Incisions medially were flushed and closed with skin lauren. The incisions were then dressed with Adaptic, sterile 4 x 4, Kerlix, cast padding and Kwame wrap followed by application of cam boot. Ankle joint was smooth range of motion without crepitus or osseous impingement. Tourniquet was deflated and a prompt hyperemic response was noted to the distal digits of the right foot. Patient tolerated the procedure and anesthesia well and was transferred to the PACU with vital signs stable and vascular status intact. Following a period of postoperative monitoring she will be discharged home. Will resume at home medications including anticoagulants of clopidogrel and aspirin, this was 75 mg of clopidogrel daily and 81 mg aspirin daily. She is to remain strict nonweightbearing to the right lower extremity with a wheelchair or crutches and is to elevate her right foot while resting. Oxycodone 7.5/325 mg sent to [facility] to be taken judiciously as needed for pain. Will follow-up in podiatry clinic next week for her first dressing change/nurse visit. Was provided my cell phone number to contact me with any questions or concerns postoperatively.
--- NOTE | 2022-07-02 06:35 | ANES.PROC ---
Anesthesia Procedures Procedure/Date: 07/02/22 Nerve Block ^: Nerve Block 2: Main Anesthesia: general anesthesia Time Out Performed: Yes Consent: requested by attending/covering physician, from patient, risks and benefits reviewed and patient agrees to proceed Nerve block location: adductor canal Anesthesia monitors applied: pulse oximetry, BP cuff and oxygen Nerve block position: semi sitting Anesthetic Used: ropivicaine 0.5% Amount of anesthesia used (mL): 20 Ultrasound used to: recognize landmarks and visualize and ID femerol nerve Nerve Stimulator Used?: No Interscalene/Femoral BLK: 4 stimuplex 21 g needle used for position and inplane approach, visualize local anesthetic spread and no vascular puncture identified Injection: neg aspiration of heme Patient Tolerated Procedure: well Complications: none Additional Comments: After time out sterile prep, using sterile technique, and using real time US guidance for target selection needle was inserted with real time visualization of needle entry and real time visualization of needle advancement toward intended target. Negative aspiration. LA injected incrementally with negative aspiration every 5 cc and real time US visualization of LA spread throughout procedure. Tolerated well. Image(s) saved.
[2022-07-02] MEDS: fentaNYL 50 mcg/mL INJ 2mL IVP (06:36)
[2022-07-02] MEDS: insulin regular-human 100 units/1 mL 10 UNIT IVP (07:06)
[2022-07-02] MEDS: clindamycin 600 MG/50 ML PREMIX 100 MG IV (07:08)
[2022-07-02] MEDS: HYDROcodone-acetaminophen 7.5-325 mg Tablet 1 TAB PO (09:02)
--- NOTE | 2022-07-02 13:30 | ANE.PACU2 ---
Inpatient post-anesthesia follow up: Airway intact: Yes Vital signs: Temperature 98.0 F Pulse Rate 83 Respiratory Rate 17 Blood Pressure 93/71 Pulse Oximetry 93 Oxygen Delivery Me thod Room Air Oxygen Flow Rate 2 Fraction of Inspir ed Oxygen Hydration adequate: Yes Nausea and vomiting: No Pain level: 1 Mental status: Baseline
--- NOTE | 2022-07-03 06:08 | ANES.PROC ---
Anesthesia Procedures Procedure/Date: 07/03/22 Nerve Block ^: Nerve Block 1: Main Anesthesia: general anesthesia Time Out Performed: Yes Consent: requested by attending/covering physician, from patient, risks and benefits reviewed and patient agrees to proceed Nerve block location: popliteal Anesthesia monitors applied: pulse oximetry, BP cuff and oxygen Nerve block position: supine Anesthetic Used: ropivicaine 0.5% Amount of anesthesia used (mL): 20 Ultrasound used to: recognize landmarks and other (recognize and visualize popliteal nerve ) Nerve Stimulator Used?: Yes Interscalene/Femoral BLK: 4 stimuplex 21 g needle used for position and inplane approach Injection: neg aspiration of heme Patient Tolerated Procedure: well Complications: none Additional Comments: After time out sterile prep, using sterile technique, and using real time US guidance for target selection needle was inserted with real time visualization of needle entry and real time visualization of needle advancement toward intended target. Negative aspiration. LA injected incrementally with negative aspiration every 5 cc and real time US visualization of LA spread throughout procedure. Tolerated well. Image(s) saved.
[2022-07-03 09:59] LABS: Glucose Point of Care 209 mg/dL (70-110)
[2022-07-03 09:59] LABS: Glucose Point of Care 304 mg/dL (70-110)
== END 2022-07-02 09:11 | disposition home or self-care (01) ==
PROVIDERS: PCP Internal Medicine; Visit Provider Podiatrist Foot & Ankle Surgery
PROC: (CPT 27822; principal; 2022-07-02 07:00)
DX: S82.851A Displaced trimalleolar fracture of right lower leg, initial encounter for closed fracture (principal); X58.XXXA Exposure to other specified factors, initial encounter; Z79.82 Long term (current) use of aspirin; Z79.4 Long term (current) use of insulin; Z79.84 Long term (current) use of oral hypoglycemic drugs; I25.10 Atherosclerotic heart disease of native coronary artery without angina pectoris; J44.9 Chronic obstructive pulmonary disease, unspecified; E13.9 Other specified diabetes mellitus without complications; I10 Essential (primary) hypertension; I25.2 Old myocardial infarction; F17.210 Nicotine dependence, cigarettes, uncomplicated
CPT/HCPCS: 27822; 36416; 76000; 82962; C1713; J1200; J1815; J2250; J2405; J2704; J2795; J3010; J3490; J7030

== ENCOUNTER → 2022-07-16 14:59 | Outpatient (BNVA) | payer MEDICARE, OTHER, SELFPAY | PROVIDERS: PCP Internal Medicine; Visit Provider Podiatrist Foot & Ankle Surgery | DX: S82.851A Displaced trimalleolar fracture of right lower leg, initial encounter for closed fracture (principal); X58.XXXA Exposure to other specified factors, initial encounter | CPT/HCPCS: 73610; 99024 ==

== ENCOUNTER → 2022-08-13 13:55 | Outpatient (BNVA) | payer MEDICARE, OTHER, SELFPAY | PROVIDERS: PCP Internal Medicine; Visit Provider Podiatrist Foot & Ankle Surgery | DX: X58.XXXA Exposure to other specified factors, initial encounter (principal); E11.9 Type 2 diabetes mellitus without complications; Z79.4 Long term (current) use of insulin; Z79.84 Long term (current) use of oral hypoglycemic drugs; S82.851A Displaced trimalleolar fracture of right lower leg, initial encounter for closed fracture | CPT/HCPCS: 73610; 99024 ==

== ENCOUNTER → 2022-08-27 13:59 | Outpatient (BNVA) | payer MEDICARE, OTHER, SELFPAY | PROVIDERS: PCP Internal Medicine; Visit Provider Podiatrist Foot & Ankle Surgery | DX: S82.851A Displaced trimalleolar fracture of right lower leg, initial encounter for closed fracture (principal); X58.XXXA Exposure to other specified factors, initial encounter | CPT/HCPCS: 73610; 99024 ==

== ENCOUNTER 2022-08-28 08:14 | Outpatient (CLI) | payer MEDICARE, OTHER, SELFPAY | END 2022-08-28 08:15 | disposition home or self-care (01) | LOC: SPT 08:16 | PROVIDERS: PCP Internal Medicine; Visit Provider Podiatrist Foot & Ankle Surgery | DX: Z46.89 Encounter for fitting and adjustment of other specified devices (principal); S82.851S Displaced trimalleolar fracture of right lower leg, sequela; X58.XXXS Exposure to other specified factors, sequela | CPT/HCPCS: L1902 ==

== ENCOUNTER → 2022-09-29 13:33 | Outpatient (BNVA) | payer MEDICARE, OTHER, SELFPAY | PROVIDERS: PCP Internal Medicine; Visit Provider Internal Medicine Cardiovascular Disease | DX: I10 Essential (primary) hypertension (principal); I25.10 Atherosclerotic heart disease of native coronary artery without angina pectoris; F17.210 Nicotine dependence, cigarettes, uncomplicated; I25.2 Old myocardial infarction | CPT/HCPCS: 99214 ==

== ENCOUNTER → 2022-10-05 14:09 | Outpatient (BNVA) | payer MEDICARE, OTHER, SELFPAY | PROVIDERS: PCP Internal Medicine; Visit Provider Podiatrist Foot & Ankle Surgery | DX: M76.821 Posterior tibial tendinitis, right leg (principal); Z98.890 Other specified postprocedural states; Z87.81 Personal history of (healed) traumatic fracture | CPT/HCPCS: 73610; 99214 ==

== ENCOUNTER 2022-10-14 06:00 | Outpatient (RCR) | payer MEDICARE, OTHER, SELFPAY | END 2022-10-28 23:59 | disposition home or self-care (01) | LOC: SPT 06:00 | PROVIDERS: PCP Internal Medicine; Visit Provider Podiatrist Foot & Ankle Surgery | DX: Z47.89 Encounter for other orthopedic aftercare (principal) | CPT/HCPCS: 97161 ==

== ENCOUNTER → 2022-11-16 15:16 | Outpatient (BNVA) | payer MEDICARE, OTHER, SELFPAY | PROVIDERS: PCP Internal Medicine; Visit Provider Podiatrist Foot & Ankle Surgery | DX: M76.821 Posterior tibial tendinitis, right leg (principal); Z98.890 Other specified postprocedural states; Z87.81 Personal history of (healed) traumatic fracture | CPT/HCPCS: 99213 ==

== ENCOUNTER → 2023-09-29 13:50 | Outpatient (BNVA) | payer MEDICARE, OTHER, SELFPAY | PROVIDERS: PCP Internal Medicine; Visit Provider Internal Medicine Cardiovascular Disease | DX: I10 Essential (primary) hypertension (principal); I25.10 Atherosclerotic heart disease of native coronary artery without angina pectoris; E78.5 Hyperlipidemia, unspecified; Z72.0 Tobacco use; E13.9 Other specified diabetes mellitus without complications; J44.9 Chronic obstructive pulmonary disease, unspecified; Z79.4 Long term (current) use of insulin | CPT/HCPCS: 99214 ==

== ENCOUNTER 2023-10-06 13:17 | Outpatient (CLI) | payer MEDICARE, OTHER, SELFPAY ==
--- NOTE | 2023-10-06 14:47 | MM_ITS ---
WS: [id number] Bilateral screening 3D tomosynthesis digital mammogram, 10/06/2023 Clinical Data: SCREEN Comparison: 05/18/2016, 05/04/2013. Findings: The breast parenchymal pattern shows fibroglandular tissue. No spiculated masses or clustered calcifi cations are seen. There are no secondary signs of carcinoma. There are mole markers on both breasts. Impression: 1. Negative bilateral mammogram unchanged. 2. Recommend annual screening mammograms. MM/[place] [id number] BIRADS: 1-Negative FOLLOW UP: 1 Year Follow-up The CAD photo checker and assembler was used.
== END 2023-10-06 13:18 | disposition home or self-care (01) ==
LOC: RAD 13:18
PROVIDERS: PCP Internal Medicine; Visit Provider Internal Medicine
DX: Z12.31 Encounter for screening mammogram for malignant neoplasm of breast (principal)
CPT/HCPCS: 77063; 77067

== ENCOUNTER 2024-01-20 08:56 | Emergency (ER) | payer MEDICARE, OTHER, SELFPAY ==
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
[2024-01-20 09:03] VITALS: BP 183/88; PULSE 63; RESP 18; TEMP 36.6; O2SAT 97; BMI 28.3
[2024-01-20] MEDS: ketorolac 30 mg/mL INJ IVP (09:38)
[2024-01-20] MEDS: morphine 4 mg/mL SDV 1 mL IVP (09:39)
[2024-01-20] MEDS: orphenadrine 30 mg/mL Inj 2 mL 60 MG IVP (09:39)
[2024-01-20] MEDS: dexamethasone 10 mg/mL INJ IVP (09:39)
[2024-01-20 09:43] VITALS: BP 173/78; PULSE 58; RESP 14; O2SAT 95
[2024-01-20 11:57] VITALS: BP 173/78; PULSE 58; RESP 14; O2SAT 95
== END 2024-01-20 11:58 | disposition home or self-care (01) ==
PROVIDERS: Emergency Provider Family Medicine; PCP Internal Medicine
DX: S39.012A Strain of muscle, fascia and tendon of lower back, initial encounter (principal); Z79.82 Long term (current) use of aspirin; Z79.4 Long term (current) use of insulin; Z79.02 Long term (current) use of antithrombotics/antiplatelets; I10 Essential (primary) hypertension; J44.9 Chronic obstructive pulmonary disease, unspecified; I25.2 Old myocardial infarction; E78.5 Hyperlipidemia, unspecified; E11.9 Type 2 diabetes mellitus without complications; F17.210 Nicotine dependence, cigarettes, uncomplicated; X50.0XXA Overexertion from strenuous movement or load, initial encounter; Y93.F2 Activity, caregiving, lifting
CPT/HCPCS: 96374; 96375; 99284; J1100; J1885; J2270; J2360

== ENCOUNTER 2024-01-25 16:20 | Emergency (ER) | payer MEDICARE, OTHER, SELFPAY ==
[2024-01-25 16:27] VITALS: BP 169/76; PULSE 67; RESP 16; TEMP 36.6; O2SAT 96; BMI 28.3
--- NOTE | 2024-01-25 17:15 | XRR_ITS ---
PROCEDURE INFORMATION: Exam: XR Lumbosacral Spine Exam date and time: 01/25/2024 5:28 PM Age: 68 years old Clinical indication: Low back pain and sciatica; Left; Additional info: Left low back pain, radiates down left leg TECHNIQUE: Imaging protocol: Radiologic exam of the lumbosacral spine. Views: 2 or 3 views. COMPARISON: No relevant prior studies available. FINDINGS: Bones/joints: No fracture or other acute abnormality. The bones are demineralized. There is mild anterolisthesis of L4 on L5 probably due to facet arthropathy. Sagittal alignment is otherwise normal. There is a mild dextro rotational curvature. Vertebral body and disc space heights are normal. Soft tissues: Unremarkable. Vasculature: Aortoiliac calcifications are seen. XR/XR lumbar spine 2-3V* [id number] IMPRESSION: Nonacute findings.
[2024-01-25 17:38] LABS: Bilirubin Urine Neg (Negative); Blood Urine 3+ (Negative); Glucose Urine UA 4+ (Normal); Ketones Urine Negative (Negative); Nitrate Urine Positive (Negative); Protein Urine Neg (Negative); Urine Appearance SL Hazy (CLEAR); Urine Color Yellow (Yellow); pH Urine 5 (5-7)
[2024-01-25 17:39] LABS: Add Urine Microscopic? YES; Leukocyte Esterase Urine Negative (Negative); Urobilinogen Urine Norm (Negative)
[2024-01-25 17:41] LABS: Add Urine Culture? Yes; Amorphous Sediment Urine TRACE /hpf; Bacteria Urine 2+ /hpf; RBC Urine 15-25 /hpf (0-2); Squamous Epithelial Cell Urine 0-4 /hpf (0-5); Transitional Epi Cells Urine 0-4 /hpf
[2024-01-25 18:00] VITALS: BP 175/78; PULSE 66; RESP 18; O2SAT 97
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
[2024-01-25] MEDS: cefdinir 300 MG CAPSULE PO (18:33)
== END 2024-01-25 18:37 | disposition home or self-care (01) ==
PROVIDERS: Emergency Provider Nurse Practitioner; PCP Internal Medicine
DX: M54.42 Lumbago with sciatica, left side (principal); N30.01 Acute cystitis with hematuria; Z79.02 Long term (current) use of antithrombotics/antiplatelets; Z79.4 Long term (current) use of insulin; Z79.82 Long term (current) use of aspirin; I10 Essential (primary) hypertension; J44.9 Chronic obstructive pulmonary disease, unspecified; I25.2 Old myocardial infarction; E78.5 Hyperlipidemia, unspecified; E11.9 Type 2 diabetes mellitus without complications; F17.210 Nicotine dependence, cigarettes, uncomplicated
CPT/HCPCS: 72100; 81001; 87077; 87086; 87186; 99284

== ENCOUNTER 2024-01-31 10:46 | Inpatient (IN) | payer MEDICARE, OTHER, SELFPAY ==
[2024-01-31] VITALS (9 sets, daily range): BP systolic 101–166; BP diastolic 72–84; PULSE 62–95; RESP 14–18; TEMP 36.4–36.6; O2SAT 92–98; BMI 28.3; BMI 26.9
--- NOTE | 2024-01-31 10:57 | XRR_ITS ---
PROCEDURE INFORMATION: Exam: XR Chest Exam date and time: 01/31/2024 11:10 AM Age: 68 years old Clinical indication: Other: AMS TECHNIQUE: Imaging protocol: Radiologic exam of the chest. Views: 1 view. COMPARISON: CR XR chest 1V [id number] 12/06/2018 10:16 AM FINDINGS: Lungs: Interval appearance of left retrocardiac opacity with irregular shape which is partially streaky. There is evidence of old granulomatous disease. Findings suspicious for interval enlargement of the left hilum. Pleural spaces: No pleural effusion. Heart/Mediastinum: Cardiomediastinal contours within normal limits. Bones/joints: No significant pathology. XR/XR chest 1V portable [id number] IMPRESSION: Interval nonspecific left retrocardiac opacity and findings suspicious for new left hilar adenopathy. CT or posttreatment follow-up plain film recommended to exclude underlying fixed pathology including neoplasm.
--- NOTE | 2024-01-31 10:57 | CT_ITS ---
WS: [id number] CT HEAD TECHNIQUE: Noncontrast CT of the head obtained from the skullbase to the vertex. CLINICAL INFORMATION: ams COMPARISON: None. DLP: 1085.[address] scans at [facility] use at least one of these dose optimization techniques: automated e xposure control; mA and/or kV adjustment per patient size (includes targeted exams where dose is matc hed to clinical indication); or iterative reconstruction. FINDINGS: No evidence of intracranial hemorrhage or mass effect. Ventricular system and basal cisterns are loera nt. Moderate small vessel changes with moderate parenchymal volume loss. Chronic infarcts RIGHT poste rior frontal and RIGHT parietal lobes with encephalomalacia. Chronic lacunar infarcts LEFT caudate an d basal ganglia.. No extra-axial fluid collections. No evidence of mass or mass effect. Mild mucosal thickening in the ethmoid air cells. Mild mucosal thickening in the mastoid tips. Normal posterior nasopharynx. Intracranial vascular calcification. IMPRESSION: 1. No evidence of intracranial hemorrhage or mass effect. 2. Moderate small vessel changes. Moderate parenchymal volume loss. 3. 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 4. Chronic lacunar infarcts LEFT caudate and basal ganglia. 5. Intracranial vascular calcification. 6. No acute intracranial findings.
--- NOTE | 2024-01-31 10:57 | W.ED.AMS ---
HPI - Altered Mental Status General: Chief Complaint: Altered Mental Status Stated Complaint: AMS x2 days Time Seen by Provider: 01/31/24 10:51 Source: patient and EMS Mode of arrival: EMS Limitations: no limitations History of Present Illness: 68-year-old female here with EMS family states she has been having some confusion over the last 2 days. She complains of lower back pain she recently is seen here for with a UTI family believes that she has been abusing meds she is found to have multiple pill bottle is empty around her including a hydrocodone here currently she is awake alert answering all my questions appropriately she is ANO x 4 she denies any fever no vomiting. Review of Systems Const: Denies: fever(s), chills, body aches or change in appetite ENMT: Denies: throat pain or dental pain Card: Denies: chest pain Resp: Denies: dyspnea GI: Denies: abdominal pain, nausea, vomiting or diarrhea Musc: Reports: back pain; Denies: neck pain Skin/Breast: Denies: rash Neuro: Reports: confusion; Denies: headache(s) [facility] ED PFSH: Medical History Tobacco abuse Essential hypertension COPD (chronic obstructive pulmonary disease) Myocardial infarction ASHD (arteriosclerotic heart disease) Dyslipidemia Diabetes 1.5, managed as type 2 Surgical History S/P PTCA (percutaneous transluminal coronary angioplasty) Family History Other CAD (coronary artery disease) Cancer Diabetes Social History Smoking and tobacco/nicotine status: current every day tobacco/nicotine user cigarettes Alcohol intake: never Substance/Drug Use: never Physical Exam Const: COMMON NORMALS: no acute distress, patient oriented x3 and healthy appearing HENMT: COMMON NORMALS: normocephalic and atraumatic HEAD & SCALP: normocephalic and atraumatic Neck/C-Spine: COMMON NORMALS: full ROM and supple Chest: COMMONS NORMALS: normal inspection of the chest Resp: COMMON NORMALS: normal respiratory effort, No retractions, No use of accessory muscles and clear to auscultation bilaterally AUSCULTATION: clear to auscultation bilaterally Cardio: COMMON NORMALS: regular rate, regular rhythm and No murmurs present (Cardio) RATE: regular rate RHYTHM: regular rhythm GI: COMMON NORMALS: Normal to inspection, nondistended, normoactive bowel sounds present, Soft to palpation, non-tender and no masses PALPATION: Yes Soft to palpation Extremity: COMMON NORMALS: normal to inspection and full ROM Neuro: COMMON NORMALS: patient oriented x3, moves all extremities and no focal motor deficits MOTOR EXAM: 5/5 motor strength present throughout Psych: COMMON NORMALS: mental status grossly normal, Normal thought process present and cooperative THOUGHT PROCESS: Normal thought process present Skin: COMMON NORMALS: no rashes or lesions noted and no wounds GENERAL SKIN EXAM: no rashes or lesions noted Course Vital Signs: Vital signs: Vital Signs Temperature 97.9 F 01/31/24 10:49 Pulse Rate 72 01/31/24 14:00 Respiratory Rate 14 01/31/24 10:49 Blood Pressure 101/72 01/31/24 14:00 Pulse Oximetry 95 01/31/24 14:00 Oxygen Delivery Me thod Room Air 01/31/24 10:49 MDM - Altered Mental Status Medical Decision Making Patient presents here with confusion could be medication related she has had a history of medication abuse patient's had decreased oral intake per family she does have acute kidney injury likely from dehydration she is making urine here she has an elevated white count I believe is likely from her renal injury she has no signs of infection her lactate is normal she is afebrile no UTI no signs of pneumonia we will give her IV fluids and admit at this time. Medical Records I reviewed the patient's medical records. Lab Data I reviewed the patient's lab results. 01/31/24 11:46 01/31/24 11:46 Radiology Impressions Chest X-Ray 01/31/24 10:57 IMPRESSION: Interval nonspecific left retrocardiac opacity and findings suspicious for new left hilar adenopathy. CT or posttreatment follow-up plain film recommended to exclude underlying fixed pathology including neoplasm. Laboratory Results WBC 26.08 10^3/uL (3.29-11.43) H 01/31/24 11:46 RBC 4.46 10^6/uL (3.85-5.65) 01/31/24 11:46 Hgb 14.20 g/dL (11.27-16.99) 01/31/24 11:46 Hct 43.7 % (36-47) 01/31/24 11:46 MCV 98.0 fl (85-98) 01/31/24 11:46 MCH 31.8 pg (27-33) 01/31/24 11:46 MCHC 32.5 g/dL (30-55) 01/31/24 11:46 RDW 13.6 % (12.1-15.1) 01/31/24 11:46 Plt Count 233 10^3/cmm (157-399) 01/31/24 11:46 MPV 11.8 fL (7.4-10.4) H 01/31/24 11:46 Neut % (Auto) 85.2 % 01/31/24 11:46 Lymph % (Auto) 9.7 % 01/31/24 11:46 [place] % (Auto) 3.4 % 01/31/24 11:46 Eos % (Auto) 0.3 % 01/31/24 11:46 Baso % (Auto) 0.4 % 01/31/24 11:46 Neut # (Auto) 22.22 10^3/uL (1.8-7.7) H 01/31/24 11:46 Lymph # (Auto) 2.5 10^3/uL (0.8-4.8) 01/31/24 11:46 [place] # (Auto) 0.9 10^3/uL (0.2-0.9) 01/31/24 11:46 Eos # (Auto) 0.1 10^3/uL (0.0-0.8) 01/31/24 11:46 Baso # (Auto) 0.1 10^3/uL (0.0-0.1) 01/31/24 11:46 Nucleated RBC % (auto) 0 % 01/31/24 11:46 Nucleated RBCs # 0.0 /100WBC 01/31/24 11:46 Sodium 128 mmol/L (136-145) L 01/31/24 11:46 Potassium 5.2 mmol/L (3.5-5.1) H 01/31/24 11:46 Chloride 98 mmol/L (98-107) 01/31/24 11:46 Carbon Dioxide 14 mmol/L (22-29) L 01/31/24 11:46 Anion Gap 21.2 (5-19) H 01/31/24 11:46 BUN 87 mg/dL (8-23) H* D 01/31/24 11:46 Creatinine 4.0 mg/dL (0.5-0.9) H 01/31/24 11:46 GFR Calculation 11.1 mL/min (90-130) L 01/31/24 11:46 Glucose 253 mg/dL (65-115) H 01/31/24 11:46 Calculated Osmolality 301 mOsm/kg (285-295) H 01/31/24 11:46 Lactic Acid 1.5 mmol/L (0.5-2.2) 01/31/24 11:46 Calcium 9.0 mg/dL (8.5-10.5) 01/31/24 11:46 Total Bilirubin 0.7 mg/dL (0.15-1.2) 01/31/24 11:46 AST 40 U/L (0-32) H 01/31/24 11:46 ALT 66 U/L (0-33) H 01/31/24 11:46 Alkaline Phosphatase 146 U/L (35-105) H 01/31/24 11:46 Creatine Kinase 368 U/L (26-192) H* 01/31/24 11:46 Total Protein 7.3 g/dL (6.6-8.7) 01/31/24 11:46 Albumin 3.1 g/dL (3.5-5.2) L 01/31/24 11:46 Globulin 4.2 g/dL (1.3-4.6) 01/31/24 11:46 Urine Color Yellow (Yellow) 01/31/24 12:38 Urine Appearance Clear (CLEAR) 01/31/24 12:38 Urine pH 5 (5-7) 01/31/24 12:38 Ur Specific [place] 1.020 (1.005-1.030) 01/31/24 12:38 Urine Protein 1+ (Negative) H 01/31/24 12:38 Urine Glucose (UA) 1+ (Normal) H 01/31/24 12:38 Urine Ketones Negative (Negative) 01/31/24 12:38 Urine Blood 3+ (Negative) H 01/31/24 12:38 Urine Nitrate Negative (Negative) 01/31/24 12:38 Urine Bilirubin Neg (Negative) 01/31/24 12:38 Urine Urobilinogen Neg mg/dL (Negative) 01/31/24 12:38 Ur Leukocyte Esterase 1+ (Negative) H 01/31/24 12:38 Urine RBC 0-4 /hpf (0-2) H 01/31/24 12:38 Urine WBC 25-40 /hpf (0-5) H 01/31/24 12:38 Ur Squamous Epith Cells 0-4 /hpf (0-5) H 01/31/24 12:38 Ur Transition Epith Cell 0-4 /hpf 01/31/24 12:38 Amorphous Sediment Not Reportable 01/31/24 12:38 Urine Bacteria Trace /hpf (NONE) 01/31/24 12:38 Coarse Granular Casts 5-10 /lpf H 01/31/24 12:38 Other Casts Epithelial /lpf 01/31/24 12:38 Urine Mucus Trace /hpf 01/31/24 12:38 Salicylates < 0.3 mg/dL (3-10) L 01/31/24 11:46 Urine Opiates Screen Positive ng/mL (Negative) H 01/31/24 12:38 Acetaminophen < 5.0 ug/mL (10-30) L 01/31/24 11:46 Ur Barbiturates Screen Negative ng/mL (Negative) 01/31/24 12:38 Ur Phencyclidine Scrn Negative ng/mL (Negative) 01/31/24 12:38 Ur Amphetamines Screen Negative ng/mL (Negative) 01/31/24 12:38 U Benzodiazepines Scrn Negative ng/mL (Negative) 01/31/24 12:38 Urine Cocaine Screen Negative ng/mL (Negative) 01/31/24 12:38 U Marijuana (THC) Screen Negative ng/mL (Negative) 01/31/24 12:38 Ethyl Alcohol < 10 mg/dL (0-10) 01/31/24 11:46 All radiology interpretation(s) finalized by discharge EKG Data EKG 1: I personally reviewed and interpreted this EKG as follows: EKG interpretation date: 01/31/24 EKG interpretation time: 11:27 Interpretation: nsr hr [address] or t wave abnormalities qrs 88 qtc 379 Discharge Plan Discharge Patient Disposition: Admitted As Inpatient Clinical Impression: Acute kidney injury, Confusion Condition: Stable Prescriptions: No Action Lantus U-100 Insulin 100 unit/mL solution 50 - 100 unit SUBCUT DAILY omeprazole 40 mg capsule,delayed release(DR/EC) 40 mg PO QAM clopidogrel 75 mg tablet 75 mg PO QAM insulin aspart U-100 [Novolog FlexPen U-100 Insulin] 100 unit/mL (3 mL) insulin pen 5 unit SUBCUT TID PRN (Reason: Hyperglycemia) montelukast [Singulair] 10 mg tablet 10 mg PO QAM nitroglycerin [Nitrostat] 0.4 mg tablet, sublingual 0.4 mg SUBLINGUAL Q5M PRN (Reason: chest pain) Qty: 25 3RF Rx Instructions: do not exceed 3 doses per episode (DME) ASO to right See Rx Instructions .Route .MEDSUPPLY Qty: 1 0RF Rx Instructions: As directed metoprolol tartrate 25 mg tablet 25 mg PO BID Qty: 180 3RF aspirin [Aspir-81] 81 mg Tablet,Delayed Release (Dr/Ec) 81 mg PO QAM gabapentin 800 mg tablet 800 mg PO QID ropinirole 0.25 mg tablet 25 mg PO QPM meloxicam 15 mg tablet 15 mg PO QAM Hold Instructions: Resume on 01/31/24. Hold while taking your previously prescribed diclofenac lisinopril 20 mg tablet 20 mg PO QAM rosuvastatin 40 mg tablet 40 mg PO QPM chlorzoxazone 500 mg tablet 500 mg PO TID PRN (Reason: MUSCLE SPASMS) Hold Instructions: Resume on 01/31/24. Hold while taking cyclobenzaprine budesonide-formoterol [Symbicort] 160-4.5 mcg/actuation HFA aerosol inhaler 1 puff INHALATION BID tizanidine 4 mg tablet 4 mg PO Q6H PRN (Reason: muscle spasticity) Qty: 20 0RF Rx Instructions: do not exceed 3 doses per 24 hrs hydrocodone-acetaminophen 5-325 mg tablet 1 tab PO Q6H PRN (Reason: pain) Qty: 15 0RF diclofenac sodium 75 mg tablet,delayed release (DR/EC) 75 mg PO Q12H PRN (Reason: pain) Qty: 20 0RF cyclobenzaprine 10 mg tablet 10 mg PO Q8H PRN (Reason: muscle spasm, pain) Qty: 20 0RF cefdinir 300 mg capsule 300 mg PO BID 7 Days Qty: 14 0RF Referrals: Rogelio Aldridge DO [Primary Care Provider] - Patient Instructions: Altered Mental Status (ED) Coding Level of Care Code ED Computer Systems Technology Instructor for Edilia Oquendo
--- NOTE | 2024-01-31 11:19 | PC.PHAR ---
PT AND FAMILY UNABLE TO VERIFY MEDICATIONS- PT AMS- MEDICATIONS VERIFIED USING EXTERNAL MED LIST AND CALLING [facility]
--- NOTE | 2024-01-31 11:27 | ECG_ITS ---
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 Measurements Intervals [place] Rate: 97 P: 71 ND: 142 QRS: 41 QRSD: 88 T: 74 QT: 324 QTc: 413 Interpretive Statements SINUS RHYTHM POSSIBLE LEFT ATRIAL ENLARGEMENT [-0.1mV P-WAVE IN V1/V2] NONSPECIFIC ST & T-WAVE ABNORMALITY Compared to ECG 06/20/2022 13:40:32 T-wave abnormality now present ST (T wave) deviation no longer present Electronically Signed On 01-31-2024 13:29:04 GL ACCOUNTANT by Moose Jean-Baptiste M.D. [id number]
--- NOTE | 2024-01-31 11:48 | CT_ITS ---
WS: [id number] CT CHEST, ABDOMEN, AND PELVIS TECHNIQUE: Noncontrast CT of the chest, abdomen, and pelvis with coronal and sagittal reformatted ford ges. CLINICAL INFORMATION: mass, ABD PAIN COMPARISON: None. DLP: 567.[address] scans at [facility] use at least one of these dose optimization techniques: automated e xposure control; mA and/or kV adjustment per patient size (includes targeted exams where dose is matc hed to clinical indication); or iterative reconstruction. CT CHEST: Moderate chronic emphysematous changes. Subsegmental atelectasis LEFT lower lobe with pleural parench ymal calcifications. Slightly ectatic ascending thoracic aorta measuring 3.4 cm. Normal caliber desce nding thoracic aorta. Coronary calcification. Calcified hilar lymph nodes. No axillary lymphadenopathy. Small pleural-based nodule along the RIGHT hemidiaphragm measuring 6 mm. Tiny nodule LEFT upper lobe anterior medially. Moderate thoracic kyphosis. Hypertrophic changes thor acic spine. CT ABDOMEN AND PELVIS: Noncontrast liver appears normal. Noncontrast spleen upper limits of normal. Normal GE junction. Fatt y atrophy of the pancreas. Normal noncontrast gallbladder. Adrenal glands are normal. No hydronephros is in either kidney. Urine distended bladder. Normal sigmoid colon. RIGHT hepatic flexure constipation. No evidence of high-grade small or large jann wel obstruction. Normal caliber abdominal aorta with calcification. Mild disc bulge L4-L5 and L5-S1. IMPRESSION: 1. Subsegmental atelectasis LEFT lower lobe extending to the LEFT hilum has a fibrotic appearance li kenneth chronic. Numerous tiny calcified granulomas. 2. A few subcentimeter pulmonary nodules described above. Recommend 12-month follow-up. 3. Tortuous hepatic flexure with constipation. This can be followed up with colonoscopy. No evidence of high-grade small or large bowel obstruction. 4. Urine distended bladder. 5. No hydronephrosis in either kidney. 6. No other acute findings on this noncontrast study.
[2024-01-31 11:53] LABS: Basophils # 0.1 10^3/uL (0.0-0.1); Basophils % 0.4 %; Eosinophils # 0.1 10^3/uL (0.0-0.8); Eosinophils % 0.3 %; Hematocrit 43.7 % (36-47); Lymphocytes # 2.5 10^3/uL (0.8-4.8); Lymphocytes % 9.7 %; Mean Corpuscular HGB Conc 32.5 g/dL (30-55); Mean Corpuscular Hemoglobin 31.8 pg (27-33); Mean Platelet Volume 11.8 fL (7.4-10.4); Monocytes # 0.9 10^3/uL (0.2-0.9); Monocytes % 3.4 %; Neutrophils # 22.22 10^3/uL (1.8-7.7); Neutrophils % 85.2 %; Nucleated Red Blood Cells % 0 %; Platelet Count 233 10^3/cmm (157-399); Red Blood Count 4.46 10^6/uL (3.85-5.65); Red Cell Distribution Width 13.6 % (12.1-15.1); White Blood Count 26.08 10^3/uL (3.29-11.43)
[2024-01-31 12:13] LABS: Lactic Sepsis W/Reflex 1.5 mmol/L (0.5-2.2)
[2024-01-31 12:23] LABS: Alanine Aminotransferase 66 U/L (0-33); Albumin Level 3.1 g/dL (3.5-5.2); Alkaline Phosphatase 146 U/L (35-105); Anion Gap 21.2 (5-19); Aspartate Amino Transferase 40 U/L (0-32); Carbon Dioxide 14 mmol/L (22-29); Chloride 98 mmol/L (98-107); Globulin 4.2 g/dL (1.3-4.6); Glomerular Filtration Rate 11.1 mL/min (90-130); Glucose 253 mg/dL (65-115); Osmolality Calculated 301 mOsm/kg (285-295); Potassium 5.2 mmol/L (3.5-5.1); Sodium 128 mmol/L (136-145); Total Bilirubin 0.7 mg/dL (0.15-1.2); Total Protein 7.3 g/dL (6.6-8.7)
[2024-01-31 12:24] LABS: Acetaminophen < 5.0 ug/mL (10-30); Alcohol Level < 10 mg/dL (0-10); Creatinine Clr Calc Pharmacy 11.8778; Salicylate < 0.3 mg/dL (3-10)
[2024-01-31 12:25] LABS: Blood Urea Nitrogen 87 mg/dL (8-23)
[2024-01-31 12:50] LABS: Creatine Phosphokinase 368 U/L (26-192)
[2024-01-31 12:56] LABS: Amphetamines Screen Urine Negative (Negative); Barbiturates Screen Urine Negative (Negative); Benzodiazepines Screen Urine Negative (Negative); Cocaine Screen Urine Negative (Negative); Opiate Screen Urine Positive (Negative); PCP Screen Urine Negative (Negative); THC Screen Urine Negative (Negative)
[2024-01-31 13:05] LABS: Glucose Urine UA 1+ (Normal); Protein Urine 1+ (Negative); Urine Appearance Clear (CLEAR); Urine Color Yellow (Yellow); pH Urine 5 (5-7)
[2024-01-31 13:06] LABS: Add Urine Microscopic? YES; Bacteria Urine TRACE /hpf; Bilirubin Urine Neg (Negative); Blood Urine 3+ (Negative); Ketones Urine Negative (Negative); Leukocyte Esterase Urine 1+ (Negative); Mucus Urine TRACE /hpf; Nitrate Urine Negative (Negative); RBC Urine 0-4 /hpf (0-2); Squamous Epithelial Cell Urine 0-4 /hpf (0-5); Transitional Epi Cells Urine 0-4 /hpf; Urobilinogen Urine Neg (Negative); WBC Urine 25-40 /hpf (0-5)
[2024-01-31 13:07] LABS: Add Urine Culture? Yes; Other Casts Urine EPITHELIAL /lpf
[2024-01-31] MEDS: sodium chloride 0.9% 1,000 ML 999 ML IV ×2 (13:16→15:56)
--- NOTE | 2024-01-31 15:27 | ECG_ITS ---
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 Measurements Intervals [place] Rate: 85 P: 68 UT: 137 QRS: 33 QRSD: 95 T: 68 QT: 349 QTc: 415 Interpretive Statements SINUS RHYTHM POSSIBLE LEFT ATRIAL ENLARGEMENT [-0.1mV P-WAVE IN V1/V2] NONSPECIFIC ST & T-WAVE ABNORMALITY Compared to ECG 01/31/2024 11:27:56 No significant changes Electronically Signed On 01-31-2024 16:15:03 SPLICING TECHNICIAN by Moose Jean-Baptiste M.D. [id number]
[2024-01-31 15:31] LABS: C Reactive Protein 109.5 mg/L (0.0-4.9); Gamma Glutamyl Transferase 150 U/L (5-36); Lipase 22 U/L (13-60); Magnesium 2.8 mg/dL (1.7-2.3)
[2024-01-31 15:32] LABS: Troponin(5th) Baseline 27 ng/L (0-10)
[2024-01-31 15:37] LABS: Erythrocyte Sedimentation Rate 59 mm/hr (0-15); Procalcitonin 0.75 ng/mL (0-0.5)
--- NOTE | 2024-01-31 15:42 | USR_ITS ---
PROCEDURE INFORMATION: Exam: US Abdomen, Limited; Right Upper Quadrant Exam date and time: 01/31/2024 2:58 PM Age: 68 years old Clinical indication: Abnormal findings; Abnormal lab test; Other: Elevated lft TECHNIQUE: Imaging protocol: Real time ultrasound of the abdomen with image documentation. Limited exam focused on the right upper quadrant. COMPARISON: [place] [id number] 01/31/2024 1:16 PM FINDINGS: Liver: No significant liver pathology. Gallbladder: No significant gallbladder pathology. Biliary ducts: No biliary dilatation. Pancreas: Visualized pancreas is unremarkable. Right kidney: Right kidney measures 10.3 cm in length and is unremarkable. Aorta: Suboptimal visualization of the aorta. Inferior vena cava: IVC unremarkable. US/US gall bladder [id number] IMPRESSION: No significant pathology.
--- NOTE | 2024-01-31 15:51 | USCV_ITS ---
Lolita Sellers Age: 68 Gender: F : 1955 Exam Date: 01/31/2024 19:34 Ordering Phys: Raheel Child MD Technologist: CATHERINE Exam Location: [facility] [place] Indication: altered mental status. No further history is available. BP: 151 / 78 HR: 0 Rhythm: Sinus Technical Quality: Adequate MEASUREMENTS (Male / Female) Normal Values 2D ECHO LV Diastolic Diameter PLAX 3.9 cm 4.2 - 5.9 / 3.9 - 5.3 cm IVS Diastolic Thickness 2.0 cm 0.6 - 1.0 / 0.6 - 0.9 cm IVS Systolic Thickness 2.1 cm LVPW Diastolic Thickness 1.3 cm 0.6 - 1.0 / 0.6 - 0.9 cm LVPW Systolic Thickness 1.6 cm LVOT Diameter 1.7 cm LV Ejection Fraction 2D Teich 60.7 % LV Ejection Fraction MOD 2C 71.3 % LV Ejection Fraction 2C AL 0.0 % LA Diameter 3.6 cm Aorta at Sinotubular Diameter 2.7 cm IVC Diameter 0.9 cm M-MODE LA Ao Ratio MM 1.2 AV Cusp Separation MM 1.6 cm DOPPLER AV Peak Velocity 168.0 cm/s LVOT Peak Velocity 143.0 cm/s AV Area Cont Eq vti 2.5 cm squared AV Area Cont Eq pk 2.0 cm squared MV Peak Velocity 105.0 cm/s MV Area PHT 2.9 cm squared Mitral E to A Ratio 0.8 TR Peak Velocity 214.0 cm/s TR Peak Gradient 18.3 mmHg TV Peak E Velocity 54.0 cm/s Right Atrial Pressure 3.0 mmHg Pulmonary Artery Systolic Pressu 21.3 mmHg FINDINGS Left Ventricle Normal left ventricular size and systolic function, EF 61% . Moderate left ventricular hypertrophy. No regional wall motion abnormalities. Grade I/IV diastolic dysfunction (abnormal relaxation filling pattern), normal to mildly elevated filling pressures. Right Ventricle The right ventricle is normal in size and function. Right Atrium The right atrium is normal in size. Left Atrium Mildly increased left atrial size. Mitral Valve Moderate mitral annular calcification. Aortic Valve Thickened aortic valve. Tricuspid Valve Trace tricuspid valve regurgitation. Pulmonic Valve No gross abnormalities noted Pericardium Normal pericardium without effusion. Aorta Normal ascending aorta dimension. IVC Normal inferior vena cava. CONCLUSIONS Normal left ventricular size and systolic function, EF 61% . Moderate left ventricular hypertrophy. No regional wall motion abnormalities. Grade I/IV diastolic dysfunction (abnormal relaxation filling pattern), normal to mildly elevated filling pressures. Mildly increased left atrial size. Moderate mitral annular calcification. Thickened aortic valve. Trace tricuspid valve regurgitation. Estimated pulmonary artery peak systolic pressure 21 mmHg There is no pericardial effusion. There are no intracardiac masses. No similar previous studies are available for comparison No similar previous studies are available for comparison Dr Brayden Figueroa MD FAC (Electronically Signed) Final Date: 01 February 2024 12:52 S
--- NOTE | 2024-01-31 15:51 | USCV_ITS ---
Lolita Sellers Age: 68 Gender: F : 1955 Exam Date: 01/31/2024 18:53 Ordering Phys: Raheel Child MD Technologist: CATHERINE Exam Location[place] [facility] [place] Indication: altered mental status Risk Factors: unknown Previous Vascular Surgery: unknown Right Brachial BP: 151 / 78 Left Brachial BP: / Right Left Velocity (cm/s) Spectral Plaque Velocity (cm/s) Spectral Plaque Syst/Diast Broadening Syst/Diast Broadening 137.00/23.70 Min Hetro Prox CCA 117.40/ 25.90 Min Hetro 71.70/ 15.00 Min Hetro Mid CCA 86.90 / 21.60 Mod Hetro 76.00/ 17.20 Mod Hetro Distal CCA 95.60 / 23.70 Mod Hetro 56.20/ 13.40 Mod [place] Prox ICA 83.90 / 27.80 Mod [place] 67.70/ 24.10 Mod Hetro Mid ICA 76.00 / 23.70 Mod Hetro 104.10/29.60 Mod Hetro Distal ICA 143.50/ 39.00 Mod Hetro 180.30 Mod Hetro ECA 117.40 Mod Hetro 1.40 ICA/CCA 1.50 Antegrade Vertebral Antegrade 39.80/ 14.40 cm/s 39.80/ 13.20 cm/s Tri Subclavian Tri 65.20 97.90 CONCLUSIONS Right ICA stenosis <50%. Moderate atheromatous plaque right carotid bulb/ICA. Left ICA stenosis <50%. Moderate atheromatous plaque left carotid bulb/ICA. Intimal thickening in the common carotid arteries and internal carotid arteries bilaterally. Normal antegrade Doppler flow noted in the right vertebral artery. Normal antegrade Doppler flow noted in the left vertebral artery. Ace Nunez MD (Electronically Signed) Final Date: 01 February 2024 08:57 S
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
[2024-01-31 16:07] LABS: Estmated Average Glucose 200; Hemoglobin A1C 8.6 % (4.0-6.0)
[2024-01-31 16:26] LABS: Alcohol Level < 10 mg/dL (0-10)
[2024-01-31 16:38] LABS: Ketone (Acetest) Serum Negative (Negative)
[2024-01-31] MEDS: morphine 4 mg/mL SDV 1 mL 2 MG IVP (18:20)
[2024-01-31] MEDS: heparin 5,000 unit/mL INJ 1 mL 5000 UNIT SUBCUT (18:21)
[2024-01-31] MEDS: pantoprazole 40 mg SDV IVP (18:21)
[2024-01-31] MEDS: ropinirole 0.25 mg Tablet PO (18:59)
[2024-01-31] MEDS: sodium chloride 0.9% 1,000 ML 100 ML IV (18:59)
[2024-01-31 19:11] LABS: Troponin 5 2HR 33.54 ng/L (0-10); Troponin 5 2HR Delta 6.54 ABS# (0-10)
[2024-01-31 19:23] LABS: Glucose Point of Care 191 mg/dL (70-110)
[2024-01-31] MEDS: insulin lispro 100 unit/1 mL SUBCUT (19:31)
[2024-01-31 20:44] LABS: Glucose Point of Care 240 mg/dL (70-110)
[2024-01-31 21:36] LABS: Troponin 5 6HR 30.49 ng/L (0-10); Troponin 5 6HR Delta 3.49 ng/L (0-12)
[2024-02-01] VITALS (7 sets, daily range): BP systolic 111–152; BP diastolic 65–78; PULSE 72–88; RESP 16–18; TEMP 36.5–37; O2SAT 92–98
[2024-02-01 05:21] LABS: Basophils # 0.1 10^3/uL (0.0-0.1); Basophils % 0.3 %; Eosinophils # 0.1 10^3/uL (0.0-0.8); Eosinophils % 0.9 %; Hematocrit 37.8 % (36-47); Lymphocytes # 2.2 10^3/uL (0.8-4.8); Lymphocytes % 13.6 %; Mean Corpuscular HGB Conc 32.8 g/dL (30-55); Mean Corpuscular Hemoglobin 31.6 pg (27-33); Mean Corpuscular Volume 96.4 fl (85-98); Mean Platelet Volume 12.3 fL (7.4-10.4); Monocytes # 0.5 10^3/uL (0.2-0.9); Monocytes % 3.1 %; Neutrophils # 12.96 10^3/uL (1.8-7.7); Neutrophils % 81.5 %; Nucleated Red Blood Cells % 0 %; Platelet Count 188 10^3/cmm (157-399); Red Blood Count 3.92 10^6/uL (3.85-5.65); Red Cell Distribution Width 13.3 % (12.1-15.1); White Blood Count 15.91 10^3/uL (3.29-11.43)
[2024-02-01 05:38] LABS: Erythrocyte Sedimentation Rate 51 mm/hr (0-15)
[2024-02-01 05:47] LABS: INR 1.18 (0.8-1.2)
[2024-02-01 05:56] LABS: NT Pro B Type Natriuretic Pept 536 pg/mL (0-125); Procalcitonin 0.37 ng/mL (0-0.5)
[2024-02-01 06:01] LABS: Alanine Aminotransferase 64 U/L (0-33); Alkaline Phosphatase 135 U/L (35-105); Anion Gap 21.1 (5-19); Aspartate Amino Transferase 47 U/L (0-32); Blood Urea Nitrogen 56 mg/dL (8-23); Calcium 8.5 mg/dL (8.5-10.5); Carbon Dioxide 15 mmol/L (22-29); Chloride 108 mmol/L (98-107); Creatinine Clr Calc Pharmacy 20.0619; Globulin 3.8 g/dL (1.3-4.6); Glomerular Filtration Rate 21.1 mL/min (90-130); Glucose 157 mg/dL (65-115); Magnesium 2.2 mg/dL (1.7-2.3); Osmolality Calculated 307 mOsm/kg (285-295); Phosphorus 3.8 mg/dL (2.5-4.5); Potassium 5.1 mmol/L (3.5-5.1); Sodium 139 mmol/L (136-145); Total Bilirubin 0.6 mg/dL (0.15-1.2); Total Protein 6.8 g/dL (6.6-8.7)
[2024-02-01 06:14] LABS: C Reactive Protein 108.3 mg/L (0.0-4.9)
[2024-02-01] MEDS: clopidogrel 75 mg Tablet PO (06:27)
[2024-02-01] MEDS: heparin 5,000 unit/mL INJ 1 mL 5000 UNIT SUBCUT ×2 (06:27→17:27)
[2024-02-01] MEDS: aspirin 81 mg EC Tablet PO (06:27)
[2024-02-01 06:43] LABS: Glucose Point of Care 167 mg/dL (70-110)
[2024-02-01] MEDS: insulin lispro 100 unit/1 mL SUBCUT ×2 (08:17→11:41)
[2024-02-01] MEDS: sodium chloride 0.9% 1,000 ML 100 ML IV (08:36)
[2024-02-01 09:29] LABS: Ferritin 450 ng/mL (15-150)
[2024-02-01 09:34] LABS: HIV 1 & 2 Antibody Non-Reactive (Non-Reactiv); HIV 1 & 2 Antigen Non-Reactive (Non-Reactiv)
[2024-02-01 09:38] LABS: Hepatitis A Antibody IgM Non-Reactive (Nonreactive); Hepatitis B Core IgM Non-Reactive (Nonreactive); Hepatitis B Surface Antigen Non-Reactive (Nonreactive); Hepatitis C Virus Antibody Non-Reactive (Nonreactive)
--- NOTE | 2024-02-01 09:46 | PC.CHAP ---
Pastoral Care Encounter/Spiritual Assessment Type of Contact [] Declined braid folder visit [] Patient/Family/Request visit [] Outpatient visit [] Follow-up visit [] Physician referral [] Code/Alert [] Routine visit [] Staff referral [] Actively dying [] Patient sleeping [] Family support [] [] Out of room [] Palliative care [] [x] Receiving care in room [] Pre-surgical visit [] Trauma [] Long length of stay [] ICU visit [] Other: Relational/Emotional Strength [] Patient feels connected with others/family/visitors/staff [] Distress [] Loneliness/isolation [] Abandonment Spirituality of Patient [] Person of Kath[place] [] Attends Oriental Orthodox of their [place] [] Believes in Prayer [] Reads Bible or Confucianist materials [] There are Spiritual issues to be addressed Information Strategist Interventions [] Prayer [] Active listening [] Non-anxious presence [] Spiritual/emotional support [] Crisis/trauma care [] Spiritual counseling [] Bereavement support [] Provided bereavement packet [] Provided Bible/devotional materials [] Provided toy/stuffed animal, coloring book to patient or family member [] Provided Communion [] Anointing/[place] [] Salvation [] Completed spiritual assessment [] Other: Impact on Illness or Injury [] Angry [] Fearful [] Anxious [] Often cries [] Exhaustion [] Unable to work [] Unable to attend latter-day [] Unable to walk/stand [] Unable to read [] Unable to drive [] Unable to eat/drink [] Unable to sleep [] Unable to be with family [] Patient intubated [] Other: Summary Time spent with patient
--- NOTE | 2024-02-01 10:57 | MR_ITS ---
WS: [id number] MRI LUMBAR SPINE NONCONTRAST HISTORY: lower lumbar pain, elevated sed, crp, wbc COMPARISON: None available. TECHNIQUE: Sagittal and axial multisequence imaging is submitted. Cervical osteophytes and disc bulging encroaching upon the ventral cervical cord with mild stenosis. L4 anterolisthesis by 2 mm. No marrow edema or fracture. Disc spaces are mildly desiccated. No significant narrowing. Conus terminates normally at L1-2 disc level. L1-L2: Normal. L2-L3: Mild bilateral facet arthritis. L3-L4: Very mild annular disc bulging. Bilateral facet joint arthritis and ligamentum flavum hypertro phy with fluid in the facet joints. Mild to moderate central with bilateral subarticular recess and m ild foraminal stenosis. There is disc contacting the traversing L4 nerve roots. L4-L5: Diffuse mild annular disc bulging is asymmetric to the RIGHT. Ligamentum flavum and facet join t arthritis encroach upon the central canal. Severe central, bilateral subarticular recess and mild f oraminal stenosis. There is significant encroachment and narrowing of the subarticular recesses and t he L5 traversing nerve roots. Greater on the RIGHT than the LEFT. L5-S1: Diffuse annular disc bulging. There is a focal LEFT paracentral disc protrusion contacting and displacing the LEFT S1 nerve root. Lesser contact on the RIGHT S1 nerve root. Moderate bilateral fac et arthritis, LEFT greater than RIGHT. Mild bilateral foraminal narrowing and mild central stenosis. IMPRESSION: 1. L5-S1: LEFT paracentral disc protrusion at L5-S1 contacting and displacing the LEFT S1 nerve root . Lesser contact on the RIGHT S1 nerve root. Mild central and bilateral foraminal stenosis. 2. L3-4: Mild to moderate central with bilateral subarticular recess and mild foraminal stenosis. Di sc contacts the traversing L4 nerve roots. 3. L4-5: Severe central, bilateral subarticular recess and mild foraminal stenosis. Encroachment upo n the L5 traversing nerve roots, RIGHT greater than LEFT with facet joint arthritis.
[2024-02-01 11:28] LABS: Glucose Point of Care 203 mg/dL (70-110)
--- NOTE | 2024-02-01 16:02 | P.PN_ITS ---
Subjective 2 Subjective: Patient was seen this morning, currently being assessed by speech therapy, he does complain of back pain, no fevers, chills, urinary continence no bowel incontinence no saddle perianal anesthesia, we discussed her and elevated inflammatory markers she really does not complain abdominal pain no right upper quadrant pain no diarrhea, no cough, her only complaint is lower back pain lower lumbar pain with sciatica, currently she is alert oriented x 3, following all commands Vitals/I&O/Wt Last Vital Signs Temp 97.7 F 02/01/24 11:42 Pulse 79 02/01/24 11:42 Resp 17 02/01/24 11:42 BP 140/70 02/01/24 11:42 Pulse Ox 92 02/01/24 11:42 O2 Del Method Room Air 02/01/24 11:42 02/01/24 02/01/24 02/01/24 06:59 14:59 22:59 Intake Total 1000 / 3000 360 / 360 Balance 1000 / 3000 360 / 360 Weight last 48 hrs Weight 64.013 kg Weight 64.773 kg Weight 68.039 kg Physical Exam 2 Const: COMMON NORMALS: no acute distress and patient oriented x3 Resp: COMMON NORMALS: normal respiratory effort, No retractions, No use of accessory muscles and clear to auscultation bilaterally AUSCULTATION: clear to auscultation bilaterally Cardio: COMMON NORMALS: regular rate, regular rhythm, S1 normal heart sound present and S2 normal heart sound present RATE: regular rate RHYTHM: r egular rhythm HEART SOUNDS: S1 normal heart sound present and S2 normal heart sound present GI: COMMON NORMALS: Normal to inspection, nondistended, normoactive bowel sounds present and non-tender Extremity: COMMON NORMALS: no pedal edema Neuro: COMMON NORMALS: patient oriented x3 Psych: COMMON NORMALS: mental status grossly normal Data 02/01/24 04:38 02/01/24 04:38 Micro: Microbiology 01/31/24 15:00 Blood Culture - Preliminary Blood NEGATIVE TO DATE 01/31/24 13:02 Blood Culture - Preliminary Blood NEGATIVE TO DATE 01/31/24 12:38 Urine Culture - Preliminary Urine,Clean Catch A&P Assessment and plan (1) Altered mental status: (2) Acute renal failure: (3) Increased anion gap metabolic acidosis: (4) Transaminitis: (5) Lumbar back pain: (6) Leukocytosis: (7) History of CVA (cerebrovascular accident): (8) Rhabdomyolysis: Plan Acute encephalopathy -Potentially multifactorial -From renal failure, uremia -Polypharmacy, narcotic, muscle relaxer, NSAID -She does have a prior history of CVA but does not report any focal neurologic deficits, is not aware about her CVA history? -echo -Normal left ventricular size and systolic function, EF 61% . Moderate left ventricular hypertrophy. No regional wall motion abnormalities. Grade I/IV diastolic dysfunction (abnormal relaxation filling pattern), normal to mildly elevated filling pressures. Mildly increased left atrial size. Moderate mitral annular calcification. Thickened aortic valve. Trace tricuspid valve regurgitation. Estimated pulmonary artery peak systolic pressure 21 mmHg There is no pericardial effusion. There are no intracardiac masses. No similar previous studies are available for comparison No similar previous studies are available for comparison carotid us CONCLUSIONS Right ICA stenosis <50%. Moderate atheromatous plaque right carotid bulb/ICA. Left ICA stenosis <50%. Moderate atheromatous plaque left carotid bulb/ICA. Intimal thickening in the common carotid arteries and internal carotid arteries bilaterally. Normal antegrade Doppler flow noted in the right vertebral artery. Normal antegrade Doppler flow noted in the left vertebral artery. -Neurochecks, aspiration precautions, nih stroke scale Leukocytosis, with elevated procalcitonin, CRP, elevated sed rate -Etiology unclear -Could be reactive -She does have transaminitis, elevated GGT, gallbladder ultrasound within normal limits -She does complain of lower lumbar back pain, I went over her CAT scan with radiology no evidence of discitis or vertebral osteomyelitis however if she continues to have any inflammatory marker elevation, leukocytosis -given persistent persistently elevated ESR, CRP, leukocytosis, will order lumbar MRI -follow blood culture -monitor for fever Acute renal failure, improving -Likely multifactorial -Dehydration -Combination of medications including Diclofenac, meloxicam, lisinopril, rhabdomyolysis Plan - IV fluids -Monitor renal function closely -Monitor urine output Increased anion gap metabolic acidosis with hyperglycemia -Monitor Elevated transaminitis, as above Rhabdomyolysis as above Hyponatremia, pseudohyponatremia, dehydration History of CVA IMPRESSION: 1. No evidence of intracranial hemorrhage or mass effect. 2. Moderate small vessel changes. Moderate parenchymal volume loss. 3. Chronic infarcts in the RIGHT posterior frontal lobe and RIGHT parietal lobe with encephalomalacia. 4. Chronic lacunar infarcts LEFT caudate and basal ganglia. 5. Intracranial vascular calcification. 6. No acute intracranial findings. -Patient is not aware of multiple CVAs on CT scan including right posterior frontal lobe, right parietal lobe with encephalomalacia, lacunar infarct of the caudate and basal ganglia -She is on aspirin, Plavix, reports compliance -She will need a cardiac workup including echocardiogram, carotid artery ultrasound, likely will need an event monitor on discharge -Will have PT OT, speech therapy see her Attestations 2 Medical Necessity Statement*: Patient requires hospitalization for, inpatient, greater than 2 midnights, acute renal failure, increased anion gap metabolic acidosis persistent lower lumbar back pain, with elevated ESR, CRP, leukocytosis, Diagnoses Altered mental status R41.82 Acute renal failure N17.9 Increased anion gap metabolic acidosis E87.29 Transaminitis R74.01 Lumbar back pain M54.50 Leukocytosis D72.829 History of CVA (cerebrovascular accident) Z86.73 Rhabdomyolysis M62.82
[2024-02-01 16:52] LABS: Glucose Point of Care 138 mg/dL (70-110)
[2024-02-01] MEDS: ropinirole 0.25 mg Tablet PO (17:27)
[2024-02-01] MEDS: pantoprazole 40 mg SDV IVP (17:27)
[2024-02-01 20:35] LABS: Glucose Point of Care 151 mg/dL (70-110)
[2024-02-02] VITALS (7 sets, daily range): BP systolic 131–170; BP diastolic 69–81; PULSE 69–78; RESP 16–18; TEMP 36.8–37.1; O2SAT 95–98
[2024-02-02] MEDS: sodium chloride 0.9% 1,000 ML 100 ML IV ×2 (03:51→16:54)
[2024-02-02 05:30] LABS: Basophils # 0.1 10^3/uL (0.0-0.1); Basophils % 0.4 %; Eosinophils # 0.1 10^3/uL (0.0-0.8); Eosinophils % 0.7 %; Hematocrit 38.1 % (36-47); Lymphocytes # 2.5 10^3/uL (0.8-4.8); Lymphocytes % 15.6 %; Mean Corpuscular HGB Conc 32.5 g/dL (30-55); Mean Corpuscular Hemoglobin 31.6 pg (27-33); Mean Corpuscular Volume 97.2 fl (85-98); Mean Platelet Volume 11.7 fL (7.4-10.4); Monocytes # 0.6 10^3/uL (0.2-0.9); Monocytes % 3.5 %; Neutrophils # 12.82 10^3/uL (1.8-7.7); Neutrophils % 79.2 %; Nucleated Red Blood Cells % 0 %; Platelet Count 210 10^3/cmm (157-399); Red Blood Count 3.92 10^6/uL (3.85-5.65); Red Cell Distribution Width 13.2 % (12.1-15.1); White Blood Count 16.18 10^3/uL (3.29-11.43)
[2024-02-02 05:33] LABS: Erythrocyte Sedimentation Rate 32 mm/hr (0-15)
[2024-02-02 05:39] LABS: INR 1.11 (0.8-1.2)
[2024-02-02 06:00] LABS: Alanine Aminotransferase 77 U/L (0-33); Alkaline Phosphatase 162 U/L (35-105); Anion Gap 18.1 (5-19); Aspartate Amino Transferase 52 U/L (0-32); Blood Urea Nitrogen 36 mg/dL (8-23); Carbon Dioxide 17 mmol/L (22-29); Chloride 110 mmol/L (98-107); Creatinine Clr Calc Pharmacy 30.3421; Glomerular Filtration Rate 34.5 mL/min (90-130); Glucose 154 mg/dL (65-115); Magnesium 1.7 mg/dL (1.7-2.3); Osmolality Calculated 301 mOsm/kg (285-295); Phosphorus 2.8 mg/dL (2.5-4.5); Potassium 5.1 mmol/L (3.5-5.1); Sodium 140 mmol/L (136-145); Total Bilirubin 0.6 mg/dL (0.15-1.2)
[2024-02-02 06:02] LABS: C Reactive Protein 59.3 mg/L (0.0-4.9)
[2024-02-02 06:04] LABS: Procalcitonin 0.22 ng/mL (0-0.5)
[2024-02-02] MEDS: clopidogrel 75 mg Tablet PO (06:22)
[2024-02-02] MEDS: heparin 5,000 unit/mL INJ 1 mL 5000 UNIT SUBCUT (06:22)
[2024-02-02] MEDS: aspirin 81 mg EC Tablet PO (06:22)
[2024-02-02 06:31] LABS: Glucose Point of Care 185 mg/dL (70-110)
[2024-02-02] MEDS: insulin lispro 100 unit/1 mL SUBCUT ×2 (08:25→11:53)
[2024-02-02 09:19] LABS: Glucose Point of Care 238 mg/dL (70-110)
[2024-02-02 11:28] LABS: Glucose Point of Care 158 mg/dL (70-110)
--- NOTE | 2024-02-02 12:08 | P.PN_ITS ---
Subjective 2 Subjective: Patient was seen this morning, patient's son is at bedside. Extensive discussion about over testing, discussed her head CT which showed multiple areas of CVAs, she is shocked and her son is shocked, by this, she does smoke she does have diabetes, she does not have any focal neurologic deficits, will have her follow-up with neurology as outpatient, we discussed her kidney function which is improving, will continue to monitor will continue to have PT OT evaluate her she has extensive spinal stenosis, disc protrusion likely etiology behind her back pain, will have to optimize her on medications, will have to try to avoid narcotics due to risk of side effects, avoid NSAIDs, she is on gabapentin, will consider muscle relaxers, and outpatient follow-up with neurosurgery, she is agreeable, she is alert to person, to place, not to time she does follow commands no focal neurologic deficits she tells me that she is a bit off this morning as she did not sleep last night as her room partner kept her awake Vitals/I&O/Wt Last Vital Signs Temp 98.2 F 02/02/24 07:54 Pulse 78 02/02/24 08:57 Resp 18 02/02/24 08:57 BP 156/78 02/02/24 07:54 Pulse Ox 96 02/02/24 08:57 O2 Del Method Room Air 02/02/24 08:57 02/01/24 02/02/24 02/02/24 22:59 06:59 14:59 Intake Total 1120 / 1480 120 / 1600 120 / 120 Balance 1120 / 1480 120 / 1600 120 / 120 Weight last 48 hrs Weight 62.162 kg Weight 64.013 kg Weight 64.773 kg Physical Exam 2 Const: COMMON NORMALS: no acute distress ORIENTATION/CONSCIOUSNESS: Yes awake, Yes oriented to person and Yes oriented to place; not oriented to time Resp: COMMON NORMALS: normal respiratory effort, No retractions, No use of accessory muscles and clear to auscultation bilaterally AUSCULTATION: clear to auscultation bilaterally Cardio: COMMON NORMALS: regular rate, regular rhythm, S1 normal heart sound present and S2 normal heart sound present RATE: regular rate RHYTHM: r egular rhythm HEART SOUNDS: S1 normal heart sound present and S2 normal heart sound present GI: COMMON NORMALS: Normal to inspection, nondistended, normoactive bowel sounds present and non-tender Extremity: COMMON NORMALS: no pedal edema Neuro: COMMON NORMALS: CN's II-XII intact bilaterally, moves all extremities and no focal motor deficits SENSORIUM/ORIENTATION: Yes oriented to person, Yes oriented to place and No oriented to time Psych: COMMON NORMALS: mental status grossly normal Data 02/02/24 04:36 02/02/24 04:36 Micro: Microbiology 01/31/24 12:38 Urine Culture - Final Urine,Clean Catch 01/31/24 15:00 Blood Culture - Preliminary Blood NEGATIVE TO DATE 01/31/24 13:02 Blood Culture - Preliminary Blood NEGATIVE TO DATE A&P Assessment and plan (1) Altered mental status: (2) Acute renal failure: (3) Increased anion gap metabolic acidosis: (4) Transaminitis: (5) Lumbar back pain: (6) Leukocytosis: (7) History of CVA (cerebrovascular accident): (8) Rhabdomyolysis: Plan Acute encephalopathy, resolving -Potentially multifactorial -From renal failure, uremia -Polypharmacy, narcotic, muscle relaxer, NSAID -She does have a prior history of CVA but does not report any focal neurologic deficits, is not aware about her CVA history? -echo -Normal left ventricular size and systolic function, EF 61% . Moderate left ventricular hypertrophy. No regional wall motion abnormalities. Grade I/IV diastolic dysfunction (abnormal relaxation filling pattern), normal to mildly elevated filling pressures. Mildly increased left atrial size. Moderate mitral annular calcification. Thickened aortic valve. Trace tricuspid valve regurgitation. Estimated pulmonary artery peak systolic pressure 21 mmHg There is no pericardial effusion. There are no intracardiac masses. No similar previous studies are available for comparison No similar previous studies are available for comparison carotid us CONCLUSIONS Right ICA stenosis <50%. Moderate atheromatous plaque right carotid bulb/ICA. Left ICA stenosis <50%. Moderate atheromatous plaque left carotid bulb/ICA. Intimal thickening in the common carotid arteries and internal carotid arteries bilaterally. Normal antegrade Doppler flow noted in the right vertebral artery. Normal antegrade Doppler flow noted in the left vertebral artery. -Neurochecks, aspiration precautions, nih stroke scale Leukocytosis, with elevated procalcitonin, CRP, elevated sed rate -Etiology unclear -Could be reactive -She does have transaminitis, elevated GGT, gallbladder ultrasound within normal limits -She does complain of lower lumbar back pain, I went over her CAT scan with radiology no evidence of discitis or vertebral osteomyelitis however if she continues to have any inflammatory marker elevation, leukocytosis -given persistent persistently elevated ESR, CRP, leukocytosis, will order lumbar MRI, lumbar hide no significant radiologic evidence of discitis or vertebral osteomyelitis or abscess -follow blood culture -monitor for fever Acute renal failure, improving -Likely multifactorial -Dehydration -Combination of medications including Diclofenac, meloxicam, lisinopril, rhabdomyolysis Plan - IV fluids -Monitor renal function closely -Monitor urine output Increased anion gap metabolic acidosis with hyperglycemia -Monitor Elevated transaminitis, as above Rhabdomyolysis as above Hyponatremia, pseudohyponatremia, dehydration History of CVA IMPRESSION: 1. No evidence of intracranial hemorrhage or mass effect. 2. Moderate small vessel changes. Moderate parenchymal volume loss. 3. Chronic infarcts in the RIGHT posterior frontal lobe and RIGHT parietal lobe with encephalomalacia. 4. Chronic lacunar infarcts LEFT caudate and basal ganglia. 5. Intracranial vascular calcification. 6. No acute intracranial findings. -Patient is not aware of multiple CVAs on CT scan including right posterior frontal lobe, right parietal lobe with encephalomalacia, lacunar infarct of the caudate and basal ganglia -She is on aspirin, Plavix, reports compliance -She will need a cardiac workup including echocardiogram, carotid artery ultrasound, likely will need an event monitor on discharge -Will have PT OT, speech therapy see her Lumbar back pain IMPRESSION: 1. L5-S1: LEFT paracentral disc protrusion at L5-S1 contacting and displacing the LEFT S1 nerve root. Lesser contact on the RIGHT S1 nerve root. Mild central and bilateral foraminal stenosis. 2. L3-4: Mild to moderate central with bilateral subarticular recess and mild foraminal stenosis. Disc contacts the traversing L4 nerve roots. 3. L4-5: Severe central, bilateral subarticular recess and mild foraminal stenosis. Encroachment upon the L5 traversing nerve roots, RIGHT greater than LEFT with facet joint arthritis. Continue PT OT, pain control, will refer to pain control as outpatient Plan for today continue fluids, continue to monitor renal function, PT OT, pain control, monitor mentation, blood sugar control Attestations 2 Medical Necessity Statement*: Patient requires hospitalization for lower lumbar back pain, acute encephalopathy, acute renal failure Diagnoses Altered mental status R41.82 Acute renal failure N17.9 Increased anion gap metabolic acidosis E87.29 Transaminitis R74.01 Lumbar back pain M54.50 Leukocytosis D72.829 History of CVA (cerebrovascular accident) Z86.73 Rhabdomyolysis M62.82
[2024-02-02 13:24] LABS: CENTROMERE B ANTIBODY <1.0 NEG AI (<1.0 NEG); JO-1 ANTIBODY <1.0 NEG AI (<1.0 NEG); RNP ANTIBODY <1.0 NEG AI (<1.0 NEG); SCL-70 ANTIBODY <1.0 NEG AI (<1.0 NEG); SJOGREN'S ANTIBODY (SS-A) <1.0 NEG AI (<1.0 NEG); SM ANTIBODY <1.0 NEG AI (<1.0 NEG); SS-B <1.0 NEG AI (<1.0 NEG)
[2024-02-02 16:42] LABS: Glucose Point of Care 134 mg/dL (70-110)
[2024-02-02] MEDS: ropinirole 0.25 mg Tablet PO (16:52)
[2024-02-02] MEDS: pantoprazole 40 mg SDV IVP (16:53)
--- NOTE | 2024-02-02 23:03 | PC.NURSE ---
this nurse went into patient's room at 2012 to do shift assessment and patient was in the bathroom. Patient had stretched to IV pole across the room to the bathroom and by doing so had pulled the IV out of her right AC. Two attempts were made to restart an IV with no success. Patient is refusing to allow us to insert another IV. Doctor notified.
[2024-02-03] VITALS: BP 170/70; PULSE 61; RESP 16; TEMP 36.8; O2SAT 98
[2024-02-03 03:24] VITALS: BP 138/81; PULSE 64; RESP 16; TEMP 36.9; O2SAT 98
--- NOTE | 2024-02-03 04:47 | PC.NURSE ---
Patient refused morning lab draws.
[2024-02-03 06:00] VITALS: BMI 25.2
[2024-02-03] MEDS: clopidogrel 75 mg Tablet PO (06:13)
[2024-02-03] MEDS: aspirin 81 mg EC Tablet PO (06:13)
[2024-02-03 08:07] LABS: Glucose Point of Care 226 mg/dL (70-110)
[2024-02-03] MEDS: insulin lispro 100 unit/1 mL SUBCUT ×2 (08:30→13:49)
[2024-02-03 08:49] VITALS: PULSE 74; RESP 16; O2SAT 96
[2024-02-03 09:20] LABS: Basophils # 0.1 10^3/uL (0.0-0.1); Basophils % 0.4 %; Eosinophils # 0.1 10^3/uL (0.0-0.8); Eosinophils % 0.6 %; Hematocrit 36.4 % (36-47); Mean Corpuscular Hemoglobin 31.4 pg (27-33); Mean Corpuscular Volume 95.3 fl (85-98); Mean Platelet Volume 11.6 fL (7.4-10.4); Monocytes # 0.6 10^3/uL (0.2-0.9); Monocytes % 4.3 %; Neutrophils # 11.65 10^3/uL (1.8-7.7); Neutrophils % 80.1 %; Nucleated Red Blood Cells % 0 %; Platelet Count 227 10^3/cmm (157-399); Red Blood Count 3.82 10^6/uL (3.85-5.65); White Blood Count 14.54 10^3/uL (3.29-11.43)
[2024-02-03 09:40] LABS: Erythrocyte Sedimentation Rate 31 mm/hr (0-15)
[2024-02-03 09:52] LABS: Alanine Aminotransferase 82 U/L (0-33); Albumin Level 3.1 g/dL (3.5-5.2); Alkaline Phosphatase 161 U/L (35-105); Aspartate Amino Transferase 46 U/L (0-32); Blood Urea Nitrogen 22 mg/dL (8-23); Carbon Dioxide 18 mmol/L (22-29); Chloride 102 mmol/L (98-107); Creatinine Clr Calc Pharmacy 37.5108; Globulin 3.9 g/dL (1.3-4.6); Glomerular Filtration Rate 44.7 mL/min (90-130); Glucose 250 mg/dL (65-115); Magnesium 1.5 mg/dL (1.7-2.3); Osmolality Calculated 294 mOsm/kg (285-295); Phosphorus 2.7 mg/dL (2.5-4.5); Sodium 136 mmol/L (136-145); Total Bilirubin 0.6 mg/dL (0.15-1.2)
[2024-02-03 09:53] LABS: C Reactive Protein 29.7 mg/L (0.0-4.9)
[2024-02-03 09:58] LABS: Procalcitonin 0.14 ng/mL (0-0.5)
[2024-02-03 10:55] LABS: Glucose Point of Care 209 mg/dL (70-110)
[2024-02-03 11:25] VITALS: BP 159/73; PULSE 67; RESP 18; TEMP 36.8; O2SAT 99
[2024-02-03 11:46] LABS: Free T4 Free Thyroxine 1.14 ng/dL (0.82-1.77); T3 Free 2.3 PG/ML (2.0-4.4); Thyroid Stimulating Hormone 1.41 uIU/mL (0.27-4.20)
--- NOTE | 2024-02-03 12:51 | P.PN_ITS ---
Subjective 2 Subjective: Patient was examined this morning, she is alert to person, not to place, not to time she does not know which city she is in, no other state no other country, she can follow all commands no facial droop no slurring her words she has equal strength in upper and lower extremities, she is able to smile for me, she recognizes me as her physician, she is able to ambulate, however is quite encephalopathic this morning, compared to yesterday, she does not know why she is here in the hospital, although I went over this with her multiple times she does not remember what she had for breakfast this morning according to physical therapist who is patient's family member, she could not recognize her, I asked Lolita if she drinks alcohol, she denies this, she denies any chest pain, no palpitations no headache, no blurry vision, will order hypercoagulable panel, MRI of the brain, neurology consulted for encephalopathy Vitals/I&O/Wt Last Vital Signs Temp 98.3 F 02/03/24 11:25 Pulse 67 02/03/24 11:25 Resp 18 02/03/24 11:25 BP 159/73 02/03/24 11:25 Pulse Ox 99 02/03/24 11:25 O2 Del Method Room Air 02/03/24 11:25 02/02/24 02/03/24 02/03/24 22:59 06:59 14:59 Intake Total 545 / 2025 240 / 2265 240 / 240 Balance 545 / 2025 240 / 2265 240 / 240 Weight last 48 hrs Weight 60.691 kg Weight 62.162 kg Physical Exam 2 Const: COMMON NORMALS: no acute distress ORIENTATION/CONSCIOUSNESS: Yes awake, Yes oriented to person and Yes confused; not oriented to place and not oriented to time Resp: COMMON NORMALS: normal respiratory effort, No retractions, No use of accessory muscles and clear to auscultation bilaterally AUSCULTATION: clear to auscultation bilaterally Cardio: COMMON NORMALS: regular rate, regular rhythm, S1 normal heart sound present and S2 normal heart sound present RATE: regular rate RHYTHM: r egular rhythm HEART SOUNDS: S1 normal heart sound present and S2 normal heart sound present GI: COMMON NORMALS: Normal to inspection, nondistended, normoactive bowel sounds present and non-tender Extremity: COMMON NORMALS: no pedal edema Neuro: COMMON NORMALS: CN's II-XII intact bilaterally, moves all extremities and no focal motor deficits SENSORIUM/ORIENTATION: Yes oriented to person, No oriented to place and No oriented to time Psych: COMMON NORMALS: mental status grossly normal Data 02/03/24 09:02 02/03/24 09:02 Micro: Microbiology 01/31/24 12:38 Urine Culture - Final Urine,Clean Catch A&P Assessment and plan (1) Altered mental status: (2) Acute renal failure: (3) Increased anion gap metabolic acidosis: (4) Transaminitis: (5) Lumbar back pain: (6) Leukocytosis: (7) History of CVA (cerebrovascular accident): (8) Rhabdomyolysis: Plan Acute encephalopathy, now persisting, with more global symptoms of encephalopathy does not remember the state that she is in the country that she is in, ? No focal neurologic deficits -Potentially multifactorial -From renal failure, uremia -Polypharmacy, narcotic, muscle relaxer, NSAID -She does have a prior history of CVA but does not report any focal neurologic deficits, is not aware about her CVA history, possible multi-infarct dementia -echo -Normal left ventricular size and systolic function, EF 61% . Moderate left ventricular hypertrophy. No regional wall motion abnormalities. Grade I/IV diastolic dysfunction (abnormal relaxation filling pattern), normal to mildly elevated filling pressures. Mildly increased left atrial size. Moderate mitral annular calcification. Thickened aortic valve. Trace tricuspid valve regurgitation. Estimated pulmonary artery peak systolic pressure 21 mmHg There is no pericardial effusion. There are no intracardiac masses. No similar previous studies are available for comparison No similar previous studies are available for comparison carotid us CONCLUSIONS Right ICA stenosis <50%. Moderate atheromatous plaque right carotid bulb/ICA. Left ICA stenosis <50%. Moderate atheromatous plaque left carotid bulb/ICA. Intimal thickening in the common carotid arteries and internal carotid arteries bilaterally. Normal antegrade Doppler flow noted in the right vertebral artery. Normal antegrade Doppler flow noted in the left vertebral artery. -Neurochecks, aspiration precautions, nih stroke scale ? Urinalysis within normal limits, ? Blood cultures within normal limits, ? Ammonia levels pending ?TSH within normal limits, ? B12, folate acid, RPR pending ? Neurology consulted, spoke to neurology ? MRI of the brain ordered ? Is on aspirin, Plavix, statin, for concerns for multi-infarct measure, as multiple vascular territories are present concern for embolic phenomenon, however no telemetry events picked up A-fib, certainly can discharge with event monitor ? Is on gabapentin 800QID Leukocytosis, with elevated procalcitonin, CRP, elevated sed rate -Etiology unclear -Could be reactive -She does have transaminitis, elevated GGT, gallbladder ultrasound within normal limits -She does complain of lower lumbar back pain, I went over her CAT scan with radiology no evidence of discitis or vertebral osteomyelitis however if she continues to have any inflammatory marker elevation, leukocytosis -given persistent persistently elevated ESR, CRP, leukocytosis, will order lumbar MRI, lumbar hide no significant radiologic evidence of discitis or vertebral osteomyelitis or abscess -follow blood culture, so far negative -monitor for fever, so far no fevers, ? On examination Kernig sign negative, Brudzinski sign negative, no neck stiffness she is able to ambulate - certainly can order lumbar puncture based on clinical progress Acute renal failure, improving -Likely multifactorial -Dehydration -Combination of medications including Diclofenac, meloxicam, lisinopril, rhabdomyolysis Plan - IV fluids, de-escalation -Monitor renal function closely -Monitor urine output Increased anion gap metabolic acidosis with hyperglycemia -Monitor Elevated transaminitis, as above Rhabdomyolysis as above Hyponatremia, pseudohyponatremia, dehydration History of CVA IMPRESSION: 1. No evidence of intracranial hemorrhage or mass effect. 2. Moderate small vessel changes. Moderate parenchymal volume loss. 3. Chronic infarcts in the RIGHT posterior frontal lobe and RIGHT parietal lobe with encephalomalacia. 4. Chronic lacunar infarcts LEFT caudate and basal ganglia. 5. Intracranial vascular calcification. 6. No acute intracranial findings. -Patient is not aware of multiple CVAs on CT scan including right posterior frontal lobe, right parietal lobe with encephalomalacia, lacunar infarct of the caudate and basal ganglia -She is on aspirin, Plavix, reports compliance -Certainly points to multi-infarct, multiple vascular territories involved, possible embolic phenomenon will need a event monitor on discharge, ? Also multi-infarct dementia is possibility, next?patient is a smoker, does have type 2 diabetes -Will have PT OT, speech therapy see her Lumbar back pain IMPRESSION: 1. L5-S1: LEFT paracentral disc protrusion at L5-S1 contacting and displacing the LEFT S1 nerve root. Lesser contact on the RIGHT S1 nerve root. Mild central and bilateral foraminal stenosis. 2. L3-4: Mild to moderate central with bilateral subarticular recess and mild foraminal stenosis. Disc contacts the traversing L4 nerve roots. 3. L4-5: Severe central, bilateral subarticular recess and mild foraminal stenosis. Encroachment upon the L5 traversing nerve roots, RIGHT greater than LEFT with facet joint arthritis. Continue PT OT, pain control, will refer to pain control as outpatient Plan for today continue fluids, continue to monitor renal function, PT OT, pain control, monitor mentation, blood sugar control 800 4 times daily Attestations 2 Medical Necessity Statement*: Patient requires hospitalization for persistent encephalopathy, possible multi- infarct dementia, requiring neurology evaluation, MRI further blood work, inpatient monitoring Diagnoses Altered mental status R41.82 Acute renal failure N17.9 Increased anion gap metabolic acidosis E87.29 Transaminitis R74.01 Lumbar back pain M54.50 Leukocytosis D72.829 History of CVA (cerebrovascular accident) Z86.73 Rhabdomyolysis M62.82
[2024-02-03 12:59] LABS: Vitamin B12 1249 pg/mL (232-1245)
[2024-02-03 13:05] LABS: Ammonia 13 umol/L (11-51)
[2024-02-03 13:47] LABS: Rapid Plasma Reagin Syphilis Nonreactive (Nonreactive)
[2024-02-03] MEDS: folic acid 1 mg Tablet PO (13:49)
[2024-02-03 13:58] LABS: Folate Level 5.5 ng/mL (4.8-37.3)
[2024-02-03 14:30] LABS: ANA SCREEN, IFA NEGATIVE (NEGATIVE)
[2024-02-03 15:22] VITALS: BP 162/62; PULSE 80; RESP 16; TEMP 37; O2SAT 94
[2024-02-03 15:28] LABS: COMPLEMENT COMPONENT C3C 209 mg/dL (83-193); COMPLEMENT COMPONENT C4C 41 mg/dL (15-57)
[2024-02-03 16:36] LABS: Glucose Point of Care 124 mg/dL (70-110)
[2024-02-03] MEDS: pantoprazole 40 mg SDV IVP (16:58)
[2024-02-03] MEDS: heparin 5,000 unit/mL INJ 1 mL 5000 UNIT SUBCUT (16:58)
[2024-02-03] MEDS: ropinirole 0.25 mg Tablet PO (17:00)
--- NOTE | 2024-02-03 18:19 | P.CONIM_ITS ---
Providers/Reason For Consult 2 Consulting Physician/Specialty*: Kit Weinstein MD neurology and epilepsy Reason for Consult*: Memory loss Attending Physician: Raheel Child MD Primary Care Provider: Rogelio Aldridge DO History of Present Illness History of Present Illness Lolita Sellers is a 68 year old female with a history of moderate small vessel changes. Moderate parenchymal volume loss. Chronic infarcts in the RIGHT posterior frontal lobe and RIGHT parietal lobe with encephalomalacia. Chronic lacunar infarcts LEFT caudate and basal ganglia. Intracranial vascular calcification reported on noncontrast head CT scan performed on 01/31/2024. Patient also has a history of moderate plaque in the carotid bulbs and proximal internal carotid arteries bilaterally measuring less than 50% stenosis with antegrade flow in the vertebral arteries bilaterally reported on carotid duplex study performed on 01/31/2024. The patient was reported to injure her back while helping her who requires a lot of care. There was concern that the patient may be using medications not prescribed for her. She was also observed to have possible urinary tract infection and some renal issues and was started on antibiotics. Patient was observed to have some altered mental status and therefore neurology consult was obtained. 2D echocardiogram was reported to be performed and was negative. CT scan of the spine was obtained and reported to reveal severe spinal stenosis. Past medical history: Lumbar pain Multiple cerebral infarctions Rhabdomyolysis Acute renal failure Chronic obstructive pulmonary disease Status post percutaneous transluminal coronary angioplasty Atherosclerotic heart disease Dyslipidemia Diabetes mellitus Drug allergies; Penicillin which resulted in a rash Home medications: Aspirin 81 mg p.o. daily Symbicort 1 puff twice a day Cefdinir 300 mg p.o. twice daily for 7 days Plavix 75 mg p.o. every morning Flexeril 10 mg p.o. every 8 hours for muscle spasm Diclofenac 75 mg p.o. every 12 hours as needed Neurontin 800 mg p.o. 4 times daily Hydrocodone/acetaminophen 1 p.o. every 6 hours as needed for pain Insulin 100 units/mL 5 units subcutaneously 3 times daily, as needed elevated blood sugar Insulin glargine 50 to 100 units subcutaneously daily Lisinopril 20 mg p.o. daily Metoprolol 25 mg p.o. twice daily Singulair 10 mg p.o. daily Sublingual nitroglycerin 0.4 mg sublingual every 5 minutes as needed for chest pain Omeprazole 40 mg p.o. daily Ropinirole 25 mg p.o. nightly Crestor 40 mg p.o. daily Zanaflex 4 mg p.o. every 6 hours as needed Habits: Unknown Review of Systems 2 General: Reports: 10 or more systems reviewed and unremarkable except in HPI and below Medications/Allergies Home Medications Medication Instructions Recorded Confirmed Last Taken Type clopidogrel 75 mg tablet 75 mg PO QAM 05/07/20 01/31/24 01/20/24 History insulin aspart U-100 100 unit/mL 5 unit SUBCUT TID PRN Hyperglycemia 05/07/20 01/31/24 07/01/22 14:00 History (3 mL) subcutaneous pen (Novolog FlexPen U-100 Insulin aspart) montelukast 10 mg tablet 10 mg PO QAM 05/07/20 01/31/24 01/20/24 History (Singulair) omeprazole 40 mg capsule,delayed 40 mg PO QAM 05/07/20 01/31/24 01/20/24 History release nitroglycerin 0.4 mg sublingual 0.4 mg sublingual Q5M PRN chest 12/24/20 01/31/24 Unknown Rx tablet (Nitrostat) pain #25 tabs insulin glargine 100 unit/mL 50 - 100 unit SUBCUT DAILY 12/30/21 01/31/24 01/20/24 History subcutaneous solution (Lantus U-100 Insulin) ASO to right #1 ea 08/27/22 01/31/24 Unknown Rx metoprolol tartrate 25 mg tablet 25 mg PO BID #180 tabs 09/29/23 01/31/24 01/20/24 Rx aspirin 81 mg tablet,delayed 81 mg PO QAM 01/20/24 01/31/24 01/20/24 History release budesonide-formoterol HFA 160 1 puff inhalation BID 01/20/24 01/31/24 Unknown History mcg-4.5 mcg/actuation aerosol inhaler (Symbicort) chlorzoxazone 500 mg tablet 500 mg PO TID PRN MUSCLE SPASMS 01/20/24 01/31/24 Unknown History diclofenac sodium 75 mg 75 mg PO Q12H PRN pain #20 tabs 01/20/24 01/31/24 Unknown Rx tablet,delayed release gabapentin 800 mg tablet 800 mg PO QID 01/20/24 01/31/24 01/20/24 History hydrocodone 5 mg-acetaminophen 325 1 tab PO Q6H PRN pain #15 tabs 01/20/24 01/31/24 Unknown Rx mg tablet lisinopril 20 mg tablet 20 mg PO QAM 01/20/24 01/31/24 01/20/24 History meloxicam 15 mg tablet 15 mg PO QAM 01/20/24 01/31/24 01/20/24 History ropinirole 0.25 mg tablet 25 mg PO QPM 01/20/24 01/31/24 01/19/24 History rosuvastatin 40 mg tablet 40 mg PO QPM 01/20/24 01/31/24 01/19/24 History tizanidine 4 mg tablet 4 mg PO Q6H PRN muscle spasticity 01/20/24 01/31/24 Unknown Rx #20 tabs cefdinir 300 mg capsule 300 mg PO BID 7 days #14 caps 01/25/24 01/31/24 Unknown Rx cyclobenzaprine 10 mg tablet 10 mg PO Q8H PRN muscle spasm, 01/25/24 01/31/24 Unknown Rx pain #20 tabs Allergies Allergy/AdvReac Type Severity Reaction Status Date / Time Penicillins Allergy ALGY-Rash Verified 01/31/24 11:19 Current Medications Generic Name Dose Route Start Last Admin Trade Name Cristy PRN Reason Stop Dose Admin Aspirin 81 mg 02/01/24 06:00 02/03/24 06:13 Aspirin 81 Mg Ec Tablet PO 81 mg QAM KENDALL Administration Clopidogrel Bisulfate 75 mg 02/01/24 06:00 02/03/24 06:13 Clopidogrel 75 Mg Tablet PO 75 mg QAM KENDALL Administration Folic Acid 1 mg 02/03/24 12:35 02/03/24 13:49 Folic Acid 1 Mg Tablet PO 1 mg DAILY KENDALL Administration Heparin Sodium (Porcine) 5,000 unit 01/31/24 17:58 02/03/24 16:58 Heparin 5,000 Unit/Ml Inj 1 Ml SUBCUT 5,000 unit Q12H KENDALL Administration Insulin Human Lispro 0 unit 01/31/24 18:00 02/03/24 17:00 Insulin Lispro 100 Unit/1 Ml SUBCUT Not Given TIDWM [facility] Protocol Morphine Sulfate 2 mg 01/31/24 17:58 01/31/24 18:20 Morphine 4 Mg/Ml Sdv 1 Ml IVP 2 mg Q4H PRN Administration SEVERE PAIN Pantoprazole Sodium 40 mg 01/31/24 17:58 02/03/24 16:58 Pantoprazole 40 Mg Sdv IVP 40 mg Q24H KENDALL Administration Ropinirole HCl 0.25 mg 01/31/24 18:00 02/03/24 17:00 Ropinirole 0.25 Mg Tablet PO 0.25 mg QPM KENDALL Administration Thiamine HCl 100 mg 02/03/24 10:25 02/03/24 12:21 Thiamine 100 Mg/Ml Sdv IM 100 mg DAILY KENDALL Administration PFSH Acute 2 PFSH: Medical History Tobacco abuse Essential hypertension COPD (chronic obstructive pulmonary disease) Myocardial infarction ASHD (arteriosclerotic heart disease) Dyslipidemia Diabetes 1.5, managed as type 2 Surgical History S/P PTCA (percutaneous transluminal coronary angioplasty) Family History Other CAD (coronary artery disease) Cancer Diabetes Social History Smoking and tobacco/nicotine status: current every day tobacco/nicotine user cigarettes Alcohol intake: never Substance/Drug Use: never Vitals/I&O/Wt Last Vital Signs Temp 98.6 F 02/03/24 15:22 Pulse 80 02/03/24 15:22 Resp 16 02/03/24 15:22 BP 162/62 02/03/24 15:22 Pulse Ox 94 02/03/24 15:22 O2 Del Method Room Air 02/03/24 11:25 02/03/24 02/03/24 02/03/24 06:59 14:59 22:59 Intake Total 240 / 2265 240 / 240 0 / 240 Balance 240 / 2265 240 / 240 0 / 240 Weight last 48 hrs Weight 133 lb 12.8 oz Weight 137 lb 0.7 oz Physical Exam 2 Narrative: The patient is alert and oriented to person and place and situation. She knew the year was 2023. But she thought it was Wednesday instead of . Patient stated she did not know the month or the date. She did not know the name of the president. She was able to recall 3 out of 3 jobs immediately and 0 out of 3 objects in 3 minutes. Patient was able to spell the word world forward but not in reverse. She was unable to perform serial sevens. The patient was able to follow commands. Speech was clear. Cranial nerves II through XII grossly intact. Pupils round reactive to light and accommodation extraocular movements intact. Motor testing grossly nonfocal. Sensory examination intact to touch throat clear. Lungs clear. Heart regular rhythm and rate. Extremities were negative for cyanosis Data 02/03/24 09:02 02/03/24 09:02 A&P Assessment and plan (1) Memory loss: Impression: 1. Short-term and long-term memory loss 2. Moderate small vessel changes. Moderate parenchymal volume loss. Chronic infarcts in the RIGHT posterior frontal lobe and RIGHT parietal lobe with encephalomalacia. Chronic lacunar infarcts LEFT caudate and basal ganglia. Intracranial vascular calcification reported on noncontrast head CT scan performed on 01/31/2024. 3.Patient also has a history of moderate plaque in the carotid bulbs and proximal internal carotid arteries bilaterally measuring less than 50% stenosis with antegrade flow in the vertebral arteries bilaterally reported on carotid duplex study performed on 01/31/2024. Plan: 1. Agree with obtaining noncontrast head MRI to further assess for multi- infarct dementia 2. Agree with obtaining hypercoagulable lab 3. Consider formal neuropsychological testing if needed 4. Will consider performing surface EEG recording for 42 minutes on outpatient basis 5. Please schedule patient for follow-up in the [facility] neurology clinic 2 weeks after discharge (2) Altered mental status: (3) Confusion: Consult Attestations 2 Medical Necessity Statement: Patient evaluated by neurology for memory loss Coding Level of Care Code 04706 Diagnoses Memory loss R41.3 Altered mental status R41.82 Confusion R41.0
[2024-02-03 19:49] VITALS: BP 149/79; PULSE 78; RESP 16; TEMP 36.9; O2SAT 98
[2024-02-03 22:42] LABS: Glucose Point of Care 205 mg/dL (70-110)
[2024-02-04] VITALS (8 sets, daily range): BP systolic 125–142; BP diastolic 69–87; PULSE 61–96; RESP 14–18; TEMP 36.4–36.9; O2SAT 92–99; BMI 24.8
[2024-02-04] MEDS: clopidogrel 75 mg Tablet PO (05:14)
[2024-02-04] MEDS: aspirin 81 mg EC Tablet PO (05:14)
[2024-02-04] MEDS: heparin 5,000 unit/mL INJ 1 mL 5000 UNIT SUBCUT ×2 (05:14→17:21)
[2024-02-04 05:51] LABS: Basophils # 0.1 10^3/uL (0.0-0.1); Basophils % 0.6 %; Eosinophils # 0.1 10^3/uL (0.0-0.8); Eosinophils % 0.9 %; Lymphocytes # 3.2 10^3/uL (0.8-4.8); Lymphocytes % 22.6 %; Mean Corpuscular HGB Conc 33.3 g/dL (30-55); Mean Corpuscular Volume 93.1 fl (85-98); Mean Platelet Volume 11.8 fL (7.4-10.4); Monocytes # 0.8 10^3/uL (0.2-0.9); Monocytes % 5.7 %; Neutrophils # 9.75 10^3/uL (1.8-7.7); Neutrophils % 69.6 %; Nucleated Red Blood Cells % 0 %; Platelet Count 274 10^3/cmm (157-399); Red Blood Count 4.19 10^6/uL (3.85-5.65); White Blood Count 14.01 10^3/uL (3.29-11.43)
[2024-02-04 06:19] LABS: Alanine Aminotransferase 86 U/L (0-33); Albumin Level 3.4 g/dL (3.5-5.2); Alkaline Phosphatase 167 U/L (35-105); Anion Gap 18.8 (5-19); Aspartate Amino Transferase 50 U/L (0-32); Blood Urea Nitrogen 19 mg/dL (8-23); Calcium 9.5 mg/dL (8.5-10.5); Carbon Dioxide 17 mmol/L (22-29); Chloride 107 mmol/L (98-107); Creatinine Clr Calc Pharmacy 40.9209; Globulin 3.9 g/dL (1.3-4.6); Glomerular Filtration Rate 49.4 mL/min (90-130); Glucose 158 mg/dL (65-115); Magnesium 1.7 mg/dL (1.7-2.3); Osmolality Calculated 294 mOsm/kg (285-295); Phosphorus 3.7 mg/dL (2.5-4.5); Potassium 3.8 mmol/L (3.5-5.1); Sodium 139 mmol/L (136-145); Total Bilirubin 0.6 mg/dL (0.15-1.2); Total Protein 7.3 g/dL (6.6-8.7)
[2024-02-04 06:53] LABS: Glucose Point of Care 210 mg/dL (70-110)
[2024-02-04 07:24] LABS: THYROID PEROXIDASE ANTIBODIES 1 IU/mL (<9)
[2024-02-04] MEDS: folic acid 1 mg Tablet PO (08:40)
[2024-02-04] MEDS: insulin lispro 100 unit/1 mL SUBCUT ×3 (08:40→17:21)
--- NOTE | 2024-02-04 11:05 | PM.PN ---
Subjective Subjective: - Patient was seen this morning, she is alert to person, not to place, she knows the year she knows the president, she does not know which country she is and she does not know the state, she tells me that she is here in the hospital because of strokes and confusion, when asked her who on the [place] she tells me the [place] [employer] she is she is able to tell me the quarterback from the [place] [employer], she knows her address she knows her birthdate, does not remember what she had for breakfast this morning, I actually got her up to the side of the bed, she is able to ambulate, no focal weakness no slurring of words no facial droop, she does have some unsteadiness as she gets up out of bed and she takes a couple steps to use the wall to help steady herself, denies feeling lightheaded denies feeling dizzy -I had a detailed discussion with patient and her at bedside, my concern for her persistent confusion due to multi infarct dementia, however there is certainly other possibilities severe depression anxiety is a possibility, given her persistent elevated white blood cell count and her inflammatory markers meningitis or encephalitis discern etiology but Kernig sign is negative Brudzinski sign negative we can consider a lumbar puncture based on her clinical progress ? I have ordered an MRI and following her blood cultures she will require inpatient monitoring ? I also spoke to patient's son outside the room, he tells me that since her skilled nursing, Lolita has remained indoors, she does not have a lot of motivation to do things, he is worried that some component of her symptoms might be severe depression and anxiety although she does not readily admitted, she has not really taken care of herself for the last 4 years and that is because a lot of tension between her and her family, I had a detailed discussion about further testing including MRI outpatient follow-up with neurology for consideration EEG the only other thought of her confusion could be meningitis encephalitis I think it is fairly unlikely however if she continues to have cognitive decline, we can consider doing an a lumbar puncture however as she is on aspirin and Plavix, it would have to be held for 5 days before doing a lumbar puncture due to risk of spinal hematoma, discussed risk and benefits of holding, they voiced understanding, all questions answered, agreed to proceed ? Spoke to radiology, will hold aspirin and Plavix for now for at least 5 days consider doing a lumbar puncture in the next 5 days based on clinical progress, inflammatory markers, white count, Vitals/I&O/Wt Last Vital Signs Temp 97.5 F L 02/04/24 07:55 Pulse 73 02/04/24 08:45 Resp 16 02/04/24 08:45 BP 142/87 02/04/24 07:55 Pulse Ox 93 02/04/24 08:45 O2 Del Method Room Air 02/04/24 08:45 02/03/24 02/04/24 02/04/24 22:59 06:59 14:59 Intake Total 240 / 480 240 / 240 Balance 240 / 480 240 / 240 Weight last 48 hrs Weight 59.693 kg Weight 60.691 kg Physical Exam Const: COMMON NORMALS: no acute distress ORIENTATION/CONSCIOUSNESS: Yes awake, Yes oriented to person and Yes confused; not oriented to place and not oriented to time Eye: COMMON NORMALS: Equal, round and reactive pupils present and EOMs intact bilaterally PUPIL: Yes Equal, round and reactive pupils present Resp: COMMON NORMALS: normal respiratory effort, No retractions, No use of accessory muscles and clear to auscultation bilaterally AUSCULTATION: clear to auscultation bilaterally Cardio: COMMON NORMALS: regular rate, regular rhythm, S1 normal heart sound present and S2 normal heart sound present RATE: regular rate RHYTHM: regular rhythm HEART SOUNDS: S1 normal heart sound present and S2 normal heart sound present GI: COMMON NORMALS: Normal to inspection, nondistended, normoactive bowel sounds present and non-tender Extremity: COMMON NORMALS: no pedal edema Neuro: COMMON NORMALS: CN's II-XII intact bilaterally, moves all extremities and no focal motor deficits SENSORIUM/ORIENTATION: Yes oriented to person, No oriented to place and No oriented to time Data 02/04/24 04:49 02/04/24 04:49 A&P Assessment and plan (1) Altered mental status: (2) Acute renal failure: (3) Increased anion gap metabolic acidosis: (4) Transaminitis: (5) Lumbar back pain: (6) Leukocytosis: (7) History of CVA (cerebrovascular accident): (8) Rhabdomyolysis: Plan Acute encephalopathy, now persisting, with more global symptoms of encephalopathy does not remember the state that she is in the country that she is in, ? No focal neurologic deficits -Potentially multifactorial -From renal failure, uremia -Polypharmacy, narcotic, muscle relaxer, NSAID -She does have a prior history of CVA but does not report any focal neurologic deficits, is not aware about her CVA history, possible multi-infarct dementia -echo -Normal left ventricular size and systolic function, EF 61% . Moderate left ventricular hypertrophy. No regional wall motion abnormalities. Grade I/IV diastolic dysfunction (abnormal relaxation filling pattern), normal to mildly elevated filling pressures. Mildly increased left atrial size. Moderate mitral annular calcification. Thickened aortic valve. Trace tricuspid valve regurgitation. Estimated pulmonary artery peak systolic pressure 21 mmHg There is no pericardial effusion. There are no intracardiac masses. No similar previous studies are available for comparison No similar previous studies are available for comparison carotid us CONCLUSIONS Right ICA stenosis <50%. Moderate atheromatous plaque right carotid bulb/ICA. Left ICA stenosis <50%. Moderate atheromatous plaque left carotid bulb/ICA. Intimal thickening in the common carotid arteries and internal carotid arteries bilaterally. Normal antegrade Doppler flow noted in the right vertebral artery. Normal antegrade Doppler flow noted in the left vertebral artery. -Neurochecks, aspiration precautions, nih stroke scale ? Urinalysis within normal limits, ? Blood cultures within normal limits, ? Ammonia levels pending ?TSH within normal limits, ? B12, folate acid WNL -RPR pending ? Neurology consulted, spoke to neurology, plan on coutinuing intervention, outpatient follow up for eeg, agreeable for LP if needed ? MRI of the brain ordered -if WBC, crp, procal, sed remain elevated will consider LP for meningitis and/or encephalitis, but afebrile, kernigs sign/brudunski sign negative, ambulatory, but persistent correction and short term memory loss, will have to hold ASA/plavix ? on d/ aspirin, Plavix, statin, for concerns for multi-infarct dementia, as multiple vascular territories are present concern for embolic phenomenon, however no telemetry events picked up A-fib, certainly can discharge with event monitor ? Is on gabapentin 800QID Leukocytosis, with elevated procalcitonin, CRP, elevated sed rate -Etiology unclear -Could be reactive -She does have transaminitis, elevated GGT, gallbladder ultrasound within normal limits -She does complain of lower lumbar back pain, I went over her CAT scan with radiology no evidence of discitis or vertebral osteomyelitis however if she continues to have any inflammatory marker elevation, leukocytosis -given persistent persistently elevated ESR, CRP, leukocytosis, will order lumbar MRI, lumbar hide no significant radiologic evidence of discitis or vertebral osteomyelitis or abscess -follow blood culture, so far negative -monitor for fever, so far no fevers, ? On examination Kernig sign negative, Brudzinski sign negative, no neck stiffness she is able to ambulate - certainly can order lumbar puncture based on clinical progress Acute renal failure, improving -Likely multifactorial -Dehydration -Combination of medications including Diclofenac, meloxicam, lisinopril, rhabdomyolysis Plan - IV fluids, de-escalation -Monitor renal function closely -Monitor urine output Increased anion gap metabolic acidosis with hyperglycemia -Monitor Elevated transaminitis, as above Rhabdomyolysis as above Hyponatremia, pseudohyponatremia, dehydration History of CVA IMPRESSION: 1. No evidence of intracranial hemorrhage or mass effect. 2. Moderate small vessel changes. Moderate parenchymal volume loss. 3. Chronic infarcts in the RIGHT posterior frontal lobe and RIGHT parietal lobe with encephalomalacia. 4. Chronic lacunar infarcts LEFT caudate and basal ganglia. 5. Intracranial vascular calcification. 6. No acute intracranial findings. -Patient is not aware of multiple CVAs on CT scan including right posterior frontal lobe, right parietal lobe with encephalomalacia, lacunar infarct of the caudate and basal ganglia -She is on aspirin, Plavix, reports compliance -Certainly points to multi-infarct, multiple vascular territories involved, possible embolic phenomenon will need a event monitor on discharge, ? Also multi-infarct dementia is possibility, next?patient is a smoker, does have type 2 diabetes -Will have PT OT, speech therapy see her Lumbar back pain IMPRESSION: 1. L5-S1: LEFT paracentral disc protrusion at L5-S1 contacting and displacing the LEFT S1 nerve root. Lesser contact on the RIGHT S1 nerve root. Mild central and bilateral foraminal stenosis. 2. L3-4: Mild to moderate central with bilateral subarticular recess and mild foraminal stenosis. Disc contacts the traversing L4 nerve roots. 3. L4-5: Severe central, bilateral subarticular recess and mild foraminal stenosis. Encroachment upon the L5 traversing nerve roots, RIGHT greater than LEFT with facet joint arthritis. Continue PT OT, pain control, will refer to pain control as outpatient Plan for today monitor mentation, MRI of the brain follow cultures, renal function is improved resume Neurontin, Attestations Medical Necessity Statement*: Patient requires hospitalization for persistent encephalopathy concerns for multi-infarct dementia MRI ordered, due to elevated inflammatory markers and leukocytosis will consider lumbar puncture based on clinical progress, hold aspirin, Plavix, requiring inpatient monitoring following cultures Diagnoses Altered mental status R41.82 Acute renal failure N17.9 Increased anion gap metabolic acidosis E87.29 Transaminitis R74.01 Lumbar back pain M54.50 Leukocytosis D72.829 History of CVA (cerebrovascular accident) Z86.73 Rhabdomyolysis M62.82
[2024-02-04 11:31] LABS: Glucose Point of Care 257 mg/dL (70-110)
[2024-02-04] MEDS: gabapentin 400 mg Capsule 800 MG PO ×3 (11:57→22:46)
[2024-02-04] MEDS: citalopram 20 mg Tablet 10 MG PO (14:32)
[2024-02-04 14:51] LABS: COMPLEMENT, TOTAL (CH50) >60 U/mL (31-60)
[2024-02-04 16:47] LABS: Glucose Point of Care 143 mg/dL (70-110)
[2024-02-04] MEDS: ropinirole 0.25 mg Tablet PO (17:20)
[2024-02-04] MEDS: pantoprazole 40 mg SDV IVP (18:23)
[2024-02-04 20:53] LABS: Glucose Point of Care 217 mg/dL (70-110)
[2024-02-05] VITALS (9 sets, daily range): BP systolic 109–162; BP diastolic 65–82; PULSE 77–89; RESP 14–22; TEMP 36.4–37.1; O2SAT 92–98
[2024-02-05 03:26] LABS: Basophils # 0.1 10^3/uL (0.0-0.1); Basophils % 0.7 %; Eosinophils # 0.2 10^3/uL (0.0-0.8); Eosinophils % 1.4 %; Lymphocytes # 4.5 10^3/uL (0.8-4.8); Mean Corpuscular Hemoglobin 30.9 pg (27-33); Mean Corpuscular Volume 93.7 fl (85-98); Mean Platelet Volume 11.7 fL (7.4-10.4); Monocytes # 0.8 10^3/uL (0.2-0.9); Monocytes % 5.1 %; Neutrophils # 9.25 10^3/uL (1.8-7.7); Neutrophils % 62.1 %; Nucleated Red Blood Cells % 0 %; Platelet Count 298 10^3/cmm (157-399); Red Blood Count 4.27 10^6/uL (3.85-5.65); Red Cell Distribution Width 12.9 % (12.1-15.1)
[2024-02-05 03:48] LABS: Alanine Aminotransferase 83 U/L (0-33); Albumin Level 3.4 g/dL (3.5-5.2); Alkaline Phosphatase 162 U/L (35-105); Anion Gap 18.7 (5-19); Aspartate Amino Transferase 46 U/L (0-32); Blood Urea Nitrogen 24 mg/dL (8-23); Calcium 9.4 mg/dL (8.5-10.5); Carbon Dioxide 19 mmol/L (22-29); Chloride 100 mmol/L (98-107); Creatinine Clr Calc Pharmacy 34.3643; Globulin 3.9 g/dL (1.3-4.6); Glomerular Filtration Rate 40.7 mL/min (90-130); Glucose 166 mg/dL (65-115); Magnesium 1.7 mg/dL (1.7-2.3); Osmolality Calculated 286 mOsm/kg (285-295); Potassium 3.7 mmol/L (3.5-5.1); Sodium 134 mmol/L (136-145); Total Bilirubin 0.6 mg/dL (0.15-1.2); Total Protein 7.3 g/dL (6.6-8.7)
[2024-02-05] MEDS: gabapentin 400 mg Capsule 800 MG PO ×4 (05:04→22:59)
[2024-02-05] MEDS: heparin 5,000 unit/mL INJ 1 mL 5000 UNIT SUBCUT ×2 (05:04→17:19)
[2024-02-05 06:30] LABS: Glucose Point of Care 204 mg/dL (70-110)
[2024-02-05] MEDS: citalopram 20 mg Tablet 10 MG PO (08:41)
[2024-02-05] MEDS: folic acid 1 mg Tablet PO (08:41)
[2024-02-05] MEDS: insulin lispro 100 unit/1 mL SUBCUT ×3 (08:41→17:19)
--- NOTE | 2024-02-05 10:28 | MRR_ITS ---
PROCEDURE INFORMATION: Exam: MR Head Without Contrast Exam date and time: 02/05/2024 10:35 AM Age: 68 years old Clinical indication: Altered mental status/memory loss; Confusion or disorientation; Additional info: AMS, CVA TECHNIQUE: Imaging protocol: Magnetic resonance imaging of the head without contrast. COMPARISON: CT head wo con* [id number] 01/31/2024 11:11 AM FINDINGS: Brain: Multiple tiny foci of restricted diffusion in the right parietal cortex. Moderate chronic periventricular microangiopathic white matter changes. Additional larger areas of gliosis in the right parietal lobe and in the left caudate, seen on recent CT head is areas of hypoattenuation, consistent with chronic infarcts. Mild cerebral atrophy. No midline shift. Small calcifications in the bilateral basal ganglia. No acute intracranial hemorrhage. Cerebral ventricles: Ventricles are normal in caliber. Bones/joints: No acute osseous findings. Paranasal sinuses: Mucosal thickening of the right maxillary sinus. Mastoid air cells: Small left mastoid effusion. Orbital cavities: Orbital cavities are normal in appearance. Soft tissues: Visualized superficial soft tissues are within normal limits. MR/MR head wo con* [id number] IMPRESSION: Multiple tiny foci of restricted diffusion in the right parietal cortex. This likely represents multiple small acute or subacute watershed infarcts.
--- NOTE | 2024-02-05 11:24 | P.PN_ITS ---
Subjective 2 Subjective: Patient was seen this morning, she is alert to person, to place, not to time she follows all commands she is able to ambulate to the bathroom, denies any headache, blurry vision, neck pain, stiffness, no dysuria, hematuria, Vitals/I&O/Wt Last Vital Signs Temp 97.8 F 02/05/24 08:00 Pulse 89 02/05/24 08:00 Resp 16 02/05/24 08:00 BP 150/79 02/05/24 05:00 Pulse Ox 96 02/05/24 08:00 O2 Del Method Room Air 02/05/24 08:00 02/04/24 02/05/24 02/05/24 22:59 06:59 14:59 Intake Total 240 / 720 240 / 960 360 / 360 Balance 240 / 720 240 / 960 360 / 360 Weight last 48 hrs Weight 61.433 kg Weight 61.433 kg Weight 59.693 kg Physical Exam 2 Const: COMMON NORMALS: no acute distress ORIENTATION/CONSCIOUSNESS: Yes awake, Yes oriented to person and Yes oriented to place; not oriented to time Resp: COMMON NORMALS: normal respiratory effort, No retractions, No use of accessory muscles and clear to auscultation bilaterally AUSCULTATION: clear to auscultation bilaterally Cardio: COMMON NORMALS: regular rate, regular rhythm, S1 normal heart sound present and S2 normal heart sound present RATE: regular rate RHYTHM: r egular rhythm HEART SOUNDS: S1 normal heart sound present and S2 normal heart sound present GI: COMMON NORMALS: Normal to inspection, nondistended, normoactive bowel sounds present and non-tender Extremity: COMMON NORMALS: no pedal edema Neuro: COMMON NORMALS: CN's II-XII intact bilaterally, moves all extremities and no focal motor deficits SENSORIUM/ORIENTATION: Yes oriented to person, Yes oriented to place and No oriented to time Psych: COMMON NORMALS: mental status grossly normal Data 02/05/24 02:20 02/05/24 02:20 A&P Assessment and plan (1) Altered mental status: (2) Acute renal failure: (3) Increased anion gap metabolic acidosis: (4) Transaminitis: (5) Lumbar back pain: (6) Leukocytosis: (7) History of CVA (cerebrovascular accident): (8) Rhabdomyolysis: Plan Acute encephalopathy, now persisting, with more global symptoms of encephalopathy does not remember the state that she is in the country that she is in, ? No focal neurologic deficits -Potentially multifactorial -From renal failure, uremia -Polypharmacy, narcotic, muscle relaxer, NSAID -She does have a prior history of CVA but does not report any focal neurologic deficits, is not aware about her CVA history, possible multi-infarct dementia -echo -Normal left ventricular size and systolic function, EF 61% . Moderate left ventricular hypertrophy. No regional wall motion abnormalities. Grade I/IV diastolic dysfunction (abnormal relaxation filling pattern), normal to mildly elevated filling pressures. Mildly increased left atrial size. Moderate mitral annular calcification. Thickened aortic valve. Trace tricuspid valve regurgitation. Estimated pulmonary artery peak systolic pressure 21 mmHg There is no pericardial effusion. There are no intracardiac masses. No similar previous studies are available for comparison No similar previous studies are available for comparison carotid us CONCLUSIONS Right ICA stenosis <50%. Moderate atheromatous plaque right carotid bulb/ICA. Left ICA stenosis <50%. Moderate atheromatous plaque left carotid bulb/ICA. Intimal thickening in the common carotid arteries and internal carotid arteries bilaterally. Normal antegrade Doppler flow noted in the right vertebral artery. Normal antegrade Doppler flow noted in the left vertebral artery. -Neurochecks, aspiration precautions, nih stroke scale ? Urinalysis within normal limits, ? Blood cultures within normal limits, ? Ammonia levels pending ?TSH within normal limits, ? B12, folate acid WNL -RPR pending ? Neurology consulted, spoke to neurology, plan on coutinuing intervention, outpatient follow up for eeg, agreeable for LP if needed ? MRI of the brain ordered -if WBC, crp, procal, sed remain elevated will consider LP for meningitis and/or encephalitis, but afebrile, kernigs sign/brudunski sign negative, ambulatory, but persistent long term and short term memory loss, will have to hold ASA/plavix ? on d/ aspirin, Plavix, statin, for concerns for multi-infarct dementia, as multiple vascular territories are present concern for embolic phenomenon, however no telemetry events picked up A-fib, certainly can discharge with event monitor ? Is on gabapentin 800QID Leukocytosis, with elevated procalcitonin, CRP, elevated sed rate -Etiology unclear -Could be reactive -She does have transaminitis, elevated GGT, gallbladder ultrasound within normal limits -She does complain of lower lumbar back pain, I went over her CAT scan with radiology no evidence of discitis or vertebral osteomyelitis however if she continues to have any inflammatory marker elevation, leukocytosis -given persistent persistently elevated ESR, CRP, leukocytosis, will order lumbar MRI, lumbar hide no significant radiologic evidence of discitis or vertebral osteomyelitis or abscess -follow blood culture, so far negative -monitor for fever, so far no fevers, ? On examination Kernig sign negative, Brudzinski sign negative, no neck stiffness she is able to ambulate - certainly can order lumbar puncture based on clinical progress Acute renal failure, improving -Likely multifactorial -Dehydration -Combination of medications including Diclofenac, meloxicam, lisinopril, rhabdomyolysis Plan - IV fluids, de-escalation -Monitor renal function closely -Monitor urine output Increased anion gap metabolic acidosis with hyperglycemia -Monitor Elevated transaminitis, as above Rhabdomyolysis as above Hyponatremia, pseudohyponatremia, dehydration History of CVA IMPRESSION: 1. No evidence of intracranial hemorrhage or mass effect. 2. Moderate small vessel changes. Moderate parenchymal volume loss. 3. Chronic infarcts in the RIGHT posterior frontal lobe and RIGHT parietal lobe with encephalomalacia. 4. Chronic lacunar infarcts LEFT caudate and basal ganglia. 5. Intracranial vascular calcification. 6. No acute intracranial findings. -Patient is not aware of multiple CVAs on CT scan including right posterior frontal lobe, right parietal lobe with encephalomalacia, lacunar infarct of the caudate and basal ganglia -She is on aspirin, Plavix, reports compliance -Certainly points to multi-infarct, multiple vascular territories involved, possible embolic phenomenon will need a event monitor on discharge, ? Also multi-infarct dementia is possibility, next?patient is a smoker, does have type 2 diabetes -Will have PT OT, speech therapy see her Lumbar back pain IMPRESSION: 1. L5-S1: LEFT paracentral disc protrusion at L5-S1 contacting and displacing the LEFT S1 nerve root. Lesser contact on the RIGHT S1 nerve root. Mild central and bilateral foraminal stenosis. 2. L3-4: Mild to moderate central with bilateral subarticular recess and mild foraminal stenosis. Disc contacts the traversing L4 nerve roots. 3. L4-5: Severe central, bilateral subarticular recess and mild foraminal stenosis. Encroachment upon the L5 traversing nerve roots, RIGHT greater than LEFT with facet joint arthritis. Continue PT OT, pain control, will refer to pain control as outpatient Plan for today monitor mentation, MRI of the brain follow cultures, renal function is improved resume Arlette, Riana 2 Medical Necessity Statement*: Patient requires hospitalization for altered mental status, concern for multi- infarct dementia Diagnoses Altered mental status R41.82 Acute renal failure N17.9 Increased anion gap metabolic acidosis E87.29 Transaminitis R74.01 Lumbar back pain M54.50 Leukocytosis D72.829 History of CVA (cerebrovascular accident) Z86.73 Rhabdomyolysis M62.82
[2024-02-05 11:44] LABS: Glucose Point of Care 182 mg/dL (70-110)
[2024-02-05 13:49] LABS: Blood Urine 3+ (Negative); Glucose Urine UA 2+ (Normal); Ketones Urine Negative (Negative); Nitrate Urine Negative (Negative); Protein Urine 1+ (Negative); Urine Appearance Cloudy (CLEAR); Urine Color Yellow (Yellow); pH Urine 5 (5-7)
[2024-02-05 13:50] LABS: Add Urine Culture? Yes; Add Urine Microscopic? YES; Bacteria Urine 3+ /hpf; Bilirubin Urine Neg (Negative); Leukocyte Esterase Urine 2+ (Negative); RBC Urine 40-50 /hpf (0-2); Squamous Epithelial Cell Urine 0-4 /hpf (0-5); Urobilinogen Urine Norm (Negative); WBC Urine 15-25 /hpf (0-5)
[2024-02-05] MEDS: clopidogrel 75 mg Tablet PO (14:14)
[2024-02-05] MEDS: aspirin 81 mg EC Tablet PO (14:14)
[2024-02-05 16:59] LABS: Glucose Point of Care 204 mg/dL (70-110)
[2024-02-05] MEDS: ropinirole 0.25 mg Tablet PO (17:18)
[2024-02-05] MEDS: cefTRIAXone 1,000 MG in sodium chloride 0.9% (plus) 50 ML 100 MG IV (17:19)
[2024-02-05] MEDS: pantoprazole 40 mg SDV IVP (18:13)
[2024-02-05 20:50] LABS: Glucose Point of Care 180 mg/dL (70-110)
[2024-02-06] VITALS (10 sets, daily range): BP systolic 119–155; BP diastolic 69–88; PULSE 76–101; RESP 16–20; TEMP 36.4–37.2; O2SAT 92–98
[2024-02-06 06:08] LABS: Basophils # 0.1 10^3/uL (0.0-0.1); Basophils % 1.1 %; Eosinophils # 0.2 10^3/uL (0.0-0.8); Eosinophils % 1.5 %; Hematocrit 38.1 % (36-47); Lymphocytes # 3.5 10^3/uL (0.8-4.8); Lymphocytes % 27.4 %; Mean Corpuscular HGB Conc 33.3 g/dL (30-55); Mean Corpuscular Hemoglobin 31.5 pg (27-33); Mean Corpuscular Volume 94.5 fl (85-98); Mean Platelet Volume 11.8 fL (7.4-10.4); Monocytes # 0.7 10^3/uL (0.2-0.9); Monocytes % 5.8 %; Neutrophils # 7.99 10^3/uL (1.8-7.7); Neutrophils % 63.6 %; Nucleated Red Blood Cells % 0 %; Platelet Count 295 10^3/cmm (157-399); Red Blood Count 4.03 10^6/uL (3.85-5.65); Red Cell Distribution Width 12.7 % (12.1-15.1); White Blood Count 12.57 10^3/uL (3.29-11.43)
[2024-02-06] MEDS: heparin 5,000 unit/mL INJ 1 mL 5000 UNIT SUBCUT ×2 (06:13→17:13)
[2024-02-06] MEDS: gabapentin 400 mg Capsule 800 MG PO ×4 (06:13→22:24)
[2024-02-06 06:19] LABS: Glucose Point of Care 204 mg/dL (70-110)
[2024-02-06 06:29] LABS: Alanine Aminotransferase 83 U/L (0-33); Albumin Level 3.1 g/dL (3.5-5.2); Alkaline Phosphatase 157 U/L (35-105); Blood Urea Nitrogen 26 mg/dL (8-23); Calcium 9.1 mg/dL (8.5-10.5); Carbon Dioxide 19 mmol/L (22-29); Chloride 102 mmol/L (98-107); Creatinine Clr Calc Pharmacy 35.1236; Globulin 3.7 g/dL (1.3-4.6); Glomerular Filtration Rate 40.7 mL/min (90-130); Glucose 193 mg/dL (65-115); Magnesium 1.7 mg/dL (1.7-2.3); Osmolality Calculated 288 mOsm/kg (285-295); Phosphorus 3.4 mg/dL (2.5-4.5); Sodium 134 mmol/L (136-145); Total Bilirubin 0.5 mg/dL (0.15-1.2); Total Protein 6.8 g/dL (6.6-8.7)
[2024-02-06 06:33] LABS: Anion Gap 17.2 (5-19); Aspartate Amino Transferase 50 U/L (0-32); Potassium 4.2 mmol/L (3.5-5.1)
[2024-02-06] MEDS: citalopram 20 mg Tablet 10 MG PO (09:04)
[2024-02-06] MEDS: folic acid 1 mg Tablet PO (09:04)
[2024-02-06] MEDS: insulin lispro 100 unit/1 mL SUBCUT ×2 (09:04→11:22)
[2024-02-06] MEDS: ticagrelor 90 mg Tablet PO ×2 (09:05→17:14)
[2024-02-06 11:17] LABS: Glucose Point of Care 306 mg/dL (70-110)
[2024-02-06] MEDS: morphine 4 mg/mL SDV 1 mL 2 MG IVP (11:28)
--- NOTE | 2024-02-06 12:02 | P.PN_ITS ---
Subjective 2 Subjective: Patient was seen this morning, she is alert to person, to place, to time, she follows all commands no facial droop no slurring of words no focal weakness she is enjoying breakfast, no facial numbness, no peripheral extremity numbness, we discussed performing transesophageal echocardiogram tomorrow, she is agreeable n.p.o. over midnight Vitals/I&O/Wt Last Vital Signs Temp 97.5 F L 02/06/24 07:40 Pulse 79 02/06/24 07:52 Resp 19 H 02/06/24 11:28 BP 126/74 02/06/24 07:40 Pulse Ox 95 02/06/24 11:28 O2 Del Method Room Air 02/06/24 07:52 02/05/24 02/06/24 02/06/24 21:59 06:59 14:59 Intake Total Output Total Balance Weight last 48 hrs Weight 62.596 kg Weight 61.433 kg Weight 61.433 kg Physical Exam 2 Const: COMMON NORMALS: no acute distress and patient oriented x3 Resp: COMMON NORMALS: normal respiratory effort, No retractions, No use of accessory muscles and clear to auscultation bilaterally AUSCULTATION: clear to auscultation bilaterally Cardio: COMMON NORMALS: regular rate, regular rhythm, S1 normal heart sound present and S2 normal heart sound present RATE: regular rate RHYTHM: r egular rhythm HEART SOUNDS: S1 normal heart sound present and S2 normal heart sound present GI: COMMON NORMALS: Normal to inspection, nondistended, normoactive bowel sounds present and non-tender Extremity: COMMON NORMALS: no pedal edema Neuro: COMMON NORMALS: patient oriented x3, CN's II-XII intact bilaterally, moves all extremities and no focal motor deficits Psych: COMMON NORMALS: mental status grossly normal Data 02/06/24 04:56 02/06/24 04:56 Micro: Microbiology 02/05/24 13:18 Urine Culture - Preliminary Urine,Clean Catch Gram Negative Rods 01/31/24 15:00 Blood Culture - Final Blood NO GROWTH AFTER 5 DAYS 01/31/24 13:02 Blood Culture - Final Blood NO GROWTH AFTER 5 DAYS A&P Assessment and plan (1) Altered mental status: (2) Acute renal failure: (3) Increased anion gap metabolic acidosis: (4) Transaminitis: (5) Lumbar back pain: (6) Leukocytosis: (7) History of CVA (cerebrovascular accident): (8) Rhabdomyolysis: (9) Acute CVA (cerebrovascular accident): (10) 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 No focal neurologic deficits -Potentially multifactorial -From renal failure, uremia -Polypharmacy, narcotic, muscle relaxer, NSAID -She does have a prior history of CVA but does not report any focal neurologic deficits, is not aware about her CVA history, possible multi-infarct dementia -echo -Normal left ventricular size and systolic function, EF 61% . Moderate left ventricular hypertrophy. No regional wall motion abnormalities. Grade I/IV diastolic dysfunction (abnormal relaxation filling pattern), normal to mildly elevated filling pressures. Mildly increased left atrial size. Moderate mitral annular calcification. Thickened aortic valve. Trace tricuspid valve regurgitation. Estimated pulmonary artery peak systolic pressure 21 mmHg There is no pericardial effusion. There are no intracardiac masses. No similar previous studies are available for comparison No similar previous studies are available for comparison carotid us CONCLUSIONS Right ICA stenosis <50%. Moderate atheromatous plaque right carotid bulb/ICA. Left ICA stenosis <50%. Moderate atheromatous plaque left carotid bulb/ICA. Intimal thickening in the common carotid arteries and internal carotid arteries bilaterally. Normal antegrade Doppler flow noted in the right vertebral artery. Normal antegrade Doppler flow noted in the left vertebral artery. -Neurochecks, aspiration precautions, nih stroke scale ? Urinalysis within normal limits, ? Blood cultures within normal limits, ? Ammonia levels pending ?TSH within normal limits, ? B12, folate acid WNL -RPR pending ? Neurology consulted, spoke to neurology, plan on coutinuing intervention, outpatient follow up for eeg, agreeable for LP if needed ? MRI of the brain FINDINGS: Brain: Multiple tiny foci of restricted diffusion in the right parietal cortex. Moderate chronic periventricular microangiopathic white matter changes. Additional larger areas of gliosis in the right parietal lobe and in the left caudate, seen on recent CT head is areas of hypoattenuation, consistent with chronic infarcts. Mild cerebral atrophy. No midline shift. Small calcifications in the bilateral basal ganglia. No acute intracranial hemorrhage. Cerebral ventricles: Ventricles are normal in caliber. Bones/joints: No acute osseous findings. Paranasal sinuses: Mucosal thickening of the right maxillary sinus. Mastoid air cells: Small left mastoid effusion. Orbital cavities: Orbital cavities are normal in appearance. Soft tissues: Visualized superficial soft tissues are within normal limits. MR/MR head wo con* [id number] IMPRESSION: Multiple tiny foci of restricted diffusion in the right parietal cortex. This likely represents multiple small acute or subacute watershed infarcts. -Spoke to neurology, watershed strokes happen with aspirin, Plavix on board, no documentable hypotensive episodes, is not on any blood pressure medications ? Will switch to Brilinta twice daily ? N.p.o. midnight, for JAMISON tomorrow ? Is on gabapentin 800QID -Will need event monitor on discharge Leukocytosis, with elevated procalcitonin, CRP, elevated sed rate -Etiology unclear -Could be reactive -She does have transaminitis, elevated GGT, gallbladder ultrasound within normal limits -She does complain of lower lumbar back pain, I went over her CAT scan with radiology no evidence of discitis or vertebral osteomyelitis however if she continues to have any inflammatory marker elevation, leukocytosis -given persistent persistently elevated ESR, CRP, leukocytosis, will order lumbar MRI, lumbar hide no significant radiologic evidence of discitis or vertebral osteomyelitis or abscess -follow blood culture, so far negative -monitor for fever, so far no fevers, ? On examination Kernig sign negative, Brudzinski sign negative, no neck stiffness she is able to ambulate - certainly can order lumbar puncture based on clinical progress -Possibly secondary to UTI, started on Rocephin Acute renal failure, resolved -Likely multifactorial -Dehydration -Combination of medications including Diclofenac, meloxicam, lisinopril, rhabdomyolysis Plan - IV fluids, de-escalation -Monitor renal function closely -Monitor urine output Increased anion gap metabolic acidosis with hyperglycemia -Monitor Elevated transaminitis, as above Rhabdomyolysis as above Hyponatremia, pseudohyponatremia, dehydration History of CVA IMPRESSION: 1. No evidence of intracranial hemorrhage or mass effect. 2. Moderate small vessel changes. Moderate parenchymal volume loss. 3. Chronic infarcts in the RIGHT posterior frontal lobe and RIGHT parietal lobe with encephalomalacia. 4. Chronic lacunar infarcts LEFT caudate and basal ganglia. 5. Intracranial vascular calcification. 6. No acute intracranial findings. -Patient is not aware of multiple CVAs on CT scan including right posterior frontal lobe, right parietal lobe with encephalomalacia, lacunar infarct of the caudate and basal ganglia Lumbar back pain IMPRESSION: 1. L5-S1: LEFT paracentral disc protrusion at L5-S1 contacting and displacing the LEFT S1 nerve root. Lesser contact on the RIGHT S1 nerve root. Mild central and bilateral foraminal stenosis. 2. L3-4: Mild to moderate central with bilateral subarticular recess and mild foraminal stenosis. Disc contacts the traversing L4 nerve roots. 3. L4-5: Severe central, bilateral subarticular recess and mild foraminal stenosis. Encroachment upon the L5 traversing nerve roots, RIGHT greater than LEFT with facet joint arthritis. Continue PT OT, pain control, will refer to pain control as outpatient Plan for today monitor mentation, n.p.o. midnight for transesophageal echocardiogram tomorrow started on Brilinta Attestations 2 Medical Necessity Statement*: Patient requires hospitalization for acute CVA, watershed stroke, requiring JAMISON Diagnoses Altered mental status R41.82 Acute renal failure N17.9 Increased anion gap metabolic acidosis E87.29 Transaminitis R74.01 Lumbar back pain M54.50 Leukocytosis D72.829 History of CVA (cerebrovascular accident) Z86.73 Rhabdomyolysis M62.82 Acute CVA (cerebrovascular accident) I63.9 Cerebral ischemic stroke due to global hypoperfusion with watershed infarct I63.9
[2024-02-06 16:26] LABS: Glucose Point of Care 105 mg/dL (70-110)
[2024-02-06] MEDS: cefTRIAXone 1,000 MG in sodium chloride 0.9% (plus) 50 ML 100 MG IV (17:13)
[2024-02-06] MEDS: pantoprazole 40 mg SDV IVP (17:13)
[2024-02-06] MEDS: ropinirole 0.25 mg Tablet PO (17:13)
[2024-02-06 20:43] LABS: Glucose Point of Care 234 mg/dL (70-110)
[2024-02-06 21:10] LABS: PROTEIN S, ACTIVITY 77 % normal (60-140)
[2024-02-07] VITALS (11 sets, daily range): BP systolic 97–160; BP diastolic 60–96; PULSE 79–106; RESP 16–20; TEMP 36.4–36.7; O2SAT 95–99
[2024-02-07] MEDS: morphine 4 mg/mL SDV 1 mL 2 MG IVP (00:24)
[2024-02-07 03:14] LABS: Basophils # 0.1 10^3/uL (0.0-0.1); Basophils % 1.1 %; Eosinophils # 0.2 10^3/uL (0.0-0.8); Eosinophils % 1.4 %; Hematocrit 37.1 % (36-47); Lymphocytes # 3.4 10^3/uL (0.8-4.8); Lymphocytes % 28.4 %; Mean Corpuscular Hemoglobin 31.5 pg (27-33); Mean Corpuscular Volume 92.8 fl (85-98); Monocytes # 0.8 10^3/uL (0.2-0.9); Monocytes % 6.5 %; Neutrophils # 7.51 10^3/uL (1.8-7.7); Neutrophils % 62.1 %; Nucleated Red Blood Cells % 0 %; Platelet Count 287 10^3/cmm (157-399); Red Cell Distribution Width 12.8 % (12.1-15.1); White Blood Count 12.09 10^3/uL (3.29-11.43)
[2024-02-07 03:36] LABS: Albumin Level 3.2 g/dL (3.5-5.2); Alkaline Phosphatase 144 U/L (35-105); Blood Urea Nitrogen 21 mg/dL (8-23); Carbon Dioxide 20 mmol/L (22-29); Chloride 98 mmol/L (98-107); Creatinine Clr Calc Pharmacy 35.1236; Globulin 3.6 g/dL (1.3-4.6); Glomerular Filtration Rate 40.7 mL/min (90-130); Glucose 199 mg/dL (65-115); Magnesium 1.8 mg/dL (1.7-2.3); Osmolality Calculated 281 mOsm/kg (285-295); Phosphorus 3.4 mg/dL (2.5-4.5); Sodium 131 mmol/L (136-145); Total Bilirubin 0.4 mg/dL (0.15-1.2); Total Protein 6.8 g/dL (6.6-8.7)
[2024-02-07 03:39] LABS: Alanine Aminotransferase 73 U/L (0-33); Anion Gap 17.6 (5-19); Aspartate Amino Transferase 40 U/L (0-32); Potassium 4.6 mmol/L (3.5-5.1)
[2024-02-07] MEDS: gabapentin 400 mg Capsule 800 MG PO ×2 (05:56→12:00)
[2024-02-07] MEDS: heparin 5,000 unit/mL INJ 1 mL 5000 UNIT SUBCUT (05:56)
--- NOTE | 2024-02-07 06:00 | USCV_ITS ---
Lolita Sellers Age: 68 Gender: F : 1955 Exam Date: 02/07/2024 13:47 Ordering Phys: Raheel Child MD Technologist: Reji Breen Exam Location: [facility] [place] Indication: AMS, CVA BP: / HR: Rhythm: Sinus Technical Quality: Adequate MEASUREMENTS (Male / Female) Normal Values Medications IV propofol was administered by the anesthesia service. Please refer to the anesthesia report. Complications None Proc. Components The patient was brought to the JAMISON examination room in a fasting state after obtaining an informed consent. The JAMISON probe was passed into the posterior pharynx , mid-esophagus and distal esophagus. The patient tolerated the procedure well and there were no complications. The patient tolerated the procedure well and there were no complications. FINDINGS Left Ventricle Normal LV size ejection fraction Right Ventricle Normal size and ejection fraction Right Atrium Normal size with no intracardiac masses Left Atrium No intracardiac shunt by color-flow Doppler examination. LA Appendage Normal size and contractility. No intracavitary masses. IA Septum Interatrial septum appears to be intact with no evidence of any intracardiac shunt by color-flow Doppler examination or by saline contrast injection Mitral Valve Minimal mitral regurgitation Aortic Valve Tricuspid aortic leaflets with minimal thickening at the base Tricuspid Valve Minimal tricuspid regurgitation Pulmonic Valve No abnormalities noted Pericardium No pericardial effusion. Aorta Normal size aortic root and proximal ascending aorta. Intimal thickening and minimal plaques are noted in the descending aorta CONCLUSIONS Normal LV size ejection fraction of around 60%. No intracavitary masses were noted. Minimal thickening of aortic valve. No masses or vegetations were noted on the valve leaflets No intracardiac shunt by color-flow Doppler examination or by saline contrast injection. Normal left atrial appendage and contractility with no intracavitary masses Mild mitral and tricuspid regurgitation Intimal thickening and minimal plaques in the descending aorta Normal aortic root size No evidence of any ascending aortic aneurysm or dissection Dr Brayden Figueroa MD [facility] (Electronically Signed) Final Date: 09 February 2024 09:02 S
[2024-02-07 06:25] LABS: Glucose Point of Care 223 mg/dL (70-110)
[2024-02-07] MEDS: ticagrelor 90 mg Tablet PO (08:28)
[2024-02-07] MEDS: citalopram 20 mg Tablet 10 MG PO (08:28)
[2024-02-07] MEDS: insulin lispro 100 unit/1 mL SUBCUT (08:28)
[2024-02-07] MEDS: folic acid 1 mg Tablet PO (08:28)
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
[2024-02-07 11:01] LABS: Glucose Point of Care 187 mg/dL (70-110)
--- NOTE | 2024-02-07 13:13 | PC.SOCIAL ---
IMM Updated Updated pt on IMM. No questions voiced. Provided pt a copy. Initialed, dated, & timed copy in chart.
[2024-02-07] MEDS: sodium chloride 0.9% 1,000 ML 30 ML IV (13:17)
--- NOTE | 2024-02-07 13:19 | PM.CONSULT ---
Providers/Reason For Consult Consulting Physician/Specialty*: ALEXANDRA Figueroa MD/cardiology Reason for Consult*: Patient with CT scan/MRI evidence of multiple lacunar infarcts, suggesting embolic CVA. JAMISON to rule out any cardiac source Requesting Physician: Dr. Child Attending Physician: Raheel Child MD Primary Care Provider: Rogelio Aldridge DO History of Present Illness History of Present Illness Lolita Sellers is a 68 year old female with a history of atherosclerotic heart disease, previous PCI, hypertension, type 2 diabetes, dyslipidemia is admitted to the hospital with altered mental status. She was found to have evidence of multiple CVAs in the past suggesting an embolic etiology. The neurology service evaluated this patient and was advised for a JAMISON to rule out any cardiac source. Patient has no history for any dysphagia. No gastric ulcers or bleeding . No history of hematemesis or melena. No chest pain or shortness of breath. No fever, chills or cough Review of Systems Narrative: CONSTITUTIONAL: Hospital admission for altered mental status EYES: No blurring of vision or other visual disturbances lately. ENT: No hoarseness of voice, auditory disturbances or sore throat. CARDIOVASCULAR: History of myocardial infarction and PCI's RESPIRATORY: No significant cough. GASTROINTESTINAL: No hematemesis or melena. GENITOURINARY: No dysuria or hematuria. INTEGUMENTARY: No skin rashes or history of skin cancer. NEURO: Altered mental status as mentioned above PSYCHIATRIC: No history of psychosis or major depression. HEMATOLOGIC: No bleeding disorders or significant anemia. ENDOCRINE: No history of polyuria or polydipsia. MUSCULOSKELETAL: No recent joint pain or swelling. ALLERGY/IMMUNOLOGY: As mentioned above. Medications/Allergies Home Medications Medication Instructions Recorded Confirmed Last Taken Type clopidogrel 75 mg tablet 75 mg PO QAM 05/07/20 01/31/24 01/20/24 History insulin aspart U-100 100 unit/mL 5 unit SUBCUT TID PRN Hyperglycemia 05/07/20 01/31/24 07/01/22 14:00 History (3 mL) subcutaneous pen (Novolog FlexPen U-100 Insulin aspart) montelukast 10 mg tablet 10 mg PO QAM 05/07/20 01/31/24 01/20/24 History (Singulair) omeprazole 40 mg capsule,delayed 40 mg PO QAM 05/07/20 01/31/24 01/20/24 History release nitroglycerin 0.4 mg sublingual 0.4 mg sublingual Q5M PRN chest 12/24/20 01/31/24 Unknown Rx tablet (Nitrostat) pain #25 tabs insulin glargine 100 unit/mL 50 - 100 unit SUBCUT DAILY 12/30/21 01/31/24 01/20/24 History subcutaneous solution (Lantus U-100 Insulin) ASO to right #1 ea 08/27/22 01/31/24 Unknown Rx metoprolol tartrate 25 mg tablet 25 mg PO BID #180 tabs 09/29/23 01/31/24 01/20/24 Rx aspirin 81 mg tablet,delayed 81 mg PO QAM 01/20/24 01/31/24 01/20/24 History release budesonide-formoterol HFA 160 1 puff inhalation BID 01/20/24 01/31/24 Unknown History mcg-4.5 mcg/actuation aerosol inhaler (Symbicort) chlorzoxazone 500 mg tablet 500 mg PO TID PRN MUSCLE SPASMS 01/20/24 01/31/24 Unknown History diclofenac sodium 75 mg 75 mg PO Q12H PRN pain #20 tabs 01/20/24 01/31/24 Unknown Rx tablet,delayed release gabapentin 800 mg tablet 800 mg PO QID 01/20/24 01/31/24 01/20/24 History hydrocodone 5 mg-acetaminophen 325 1 tab PO Q6H PRN pain #15 tabs 01/20/24 01/31/24 Unknown Rx mg tablet lisinopril 20 mg tablet 20 mg PO QAM 01/20/24 01/31/24 01/20/24 History meloxicam 15 mg tablet 15 mg PO QAM 01/20/24 01/31/24 01/20/24 History ropinirole 0.25 mg tablet 25 mg PO QPM 01/20/24 01/31/24 01/19/24 History rosuvastatin 40 mg tablet 40 mg PO QPM 01/20/24 01/31/24 01/19/24 History tizanidine 4 mg tablet 4 mg PO Q6H PRN muscle spasticity 01/20/24 01/31/24 Unknown Rx #20 tabs cefdinir 300 mg capsule 300 mg PO BID 7 days #14 caps 01/25/24 01/31/24 Unknown Rx cyclobenzaprine 10 mg tablet 10 mg PO Q8H PRN muscle spasm, 01/25/24 01/31/24 Unknown Rx pain #20 tabs Allergies Allergy/AdvReac Type Severity Reaction Status Date / Time Penicillins Allergy ALGY-Rash Verified 01/31/24 11:19 Current Medications Generic Name Dose Route Start Last Admin Trade Name Lamontq PRN Reason Stop Dose Admin Citalopram Hydrobromide 10 mg 02/04/24 13:35 02/07/24 08:28 Citalopram 20 Mg Tablet PO 10 mg DAILY KENDALL Administration Folic Acid 1 mg 02/03/24 12:35 02/07/24 08:28 Folic Acid 1 Mg Tablet PO 1 mg DAILY KENDALL Administration Gabapentin 800 mg 02/04/24 11:15 02/07/24 12:00 Gabapentin 400 Mg Capsule PO 800 mg Q6H KENDALL Administration Heparin Sodium (Porcine) 5,000 unit 01/31/24 17:58 02/07/24 05:56 Heparin 5,000 Unit/Ml Inj 1 Ml SUBCUT 5,000 unit Q12H KENDALL Administration Ceftriaxone Sodium 1,000 mg/ 50 mls @ 100 mls/hr 02/05/24 16:30 02/06/24 17:50 Sodium Chloride IV Infused Q24H KENDALL Infusion Protocol Sodium Chloride 1,000 mls @ 30 mls/hr 02/07/24 13:15 02/07/24 13:17 Sodium Chloride 0.9% IV 30 mls/hr .Q24H KENDALL Administration Insulin Human Lispro 0 unit 01/31/24 18:00 02/07/24 11:59 Insulin Lispro 100 Unit/1 Ml SUBCUT Not Given TIDWM [facility]1983 Protocol Morphine Sulfate 2 mg 01/31/24 17:58 02/07/24 00:24 Morphine 4 Mg/Ml Sdv 1 Ml IVP 2 mg Q4H PRN Administration SEVERE PAIN Pantoprazole Sodium 40 mg 01/31/24 17:58 02/06/24 17:13 Pantoprazole 40 Mg Sdv IVP 40 mg Q24H KENDALL Administration Ropinirole HCl 0.25 mg 01/31/24 18:00 02/06/24 17:13 Ropinirole 0.25 Mg Tablet PO 0.25 mg QPM KENDALL Administration Ticagrelor 90 mg 02/06/24 09:00 02/07/24 08:28 Ticagrelor 90 Mg Tablet PO 90 mg BID KENDALL Administration PFSH Acute PFSH: Medical History Tobacco abuse Essential hypertension COPD (chronic obstructive pulmonary disease) Myocardial infarction ASHD (arteriosclerotic heart disease) Dyslipidemia Diabetes 1.5, managed as type 2 Surgical History S/P PTCA (percutaneous transluminal coronary angioplasty) Family History Other CAD (coronary artery disease) Cancer Diabetes Social History Smoking and tobacco/nicotine status: current every day tobacco/nicotine user cigarettes Alcohol intake: never Substance/Drug Use: never Vitals/I&O/Wt Last Vital Signs Temp 97.8 F 02/07/24 13:14 Pulse 87 02/07/24 13:14 Resp 18 02/07/24 13:14 BP 144/95 02/07/24 13:14 Pulse Ox 97 02/07/24 13:14 O2 Del Method Room Air 02/07/24 11:25 02/06/24 02/07/24 02/07/24 22:59 06:59 14:59 Intake Total 1010 / 1490 Output Total 400 / 400 Balance 1010 / 1490 -400 / 1090 Weight last 48 hrs Weight 138 lb 11.2 oz Weight 138 lb Physical Exam Narrative: GENERAL: The patient is alert and oriented times three. Not in any acute distress. HEENT: No significant pallor, icterus or lymphadenopathy.Oral cavity: There are no mucous membrane lesions. NECK: Trachea appears to be central. No masses noted. No JVD or thyromegaly appreciated. RESPIRATORY: Chest is symmetrical. No intercostals muscle retraction or any accessory muscle activation. There is no chest wall tenderness. Breath sounds are heard bilaterally. No rales or rhonchi heard. No evidence of any consolidation. BREASTS: Deferred. HEART: The heart sounds are normal. No S3 or S4. No significant murmurs. No pericardial rub ABDOMEN: No vessel pulsations or distention. No tenderness. No organomegaly appreciated. Bowel sounds are normally heard. : Deferred. RECTAL: Deferred. LYMPHATIC: No lymphadenopathy noted in the neck. EXTREMITIES: No edema or cyanosis. No clubbing. MUSCULOSKELETAL: No acute joint deformities or swelling SKIN: There are no significant rashes or ecchymosis NEUROPSYCHIATRIC: No focal motor deficits Data 02/07/24 01:45 02/07/24 01:45 Other Labs: Laboratory Last Values WBC 12.09 10^3/uL (3.29-11.43) H 02/07/24 01:45 RBC 4.00 10^6/uL (3.85-5.65) 02/07/24 01:45 Hgb 12.60 g/dL (11.27-16.99) 02/07/24 01:45 Hct 37.1 % (36-47) 02/07/24 01:45 MCV 92.8 fl (85-98) 02/07/24 01:45 MCH 31.5 pg (27-33) 02/07/24 01:45 MCHC 34.0 g/dL (30-55) 02/07/24 01:45 RDW 12.8 % (12.1-15.1) 02/07/24 01:45 Plt Count 287 10^3/cmm (157-399) 02/07/24 01:45 MPV 12.0 fL (7.4-10.4) H 02/07/24 01:45 Neut % (Auto) 62.1 % 02/07/24 01:45 Lymph % (Auto) 28.4 % 02/07/24 01:45 [place] % (Auto) 6.5 % 02/07/24 01:45 Eos % (Auto) 1.4 % 02/07/24 01:45 Baso % (Auto) 1.1 % 02/07/24 01:45 Neut # (Auto) 7.51 10^3/uL (1.8-7.7) 02/07/24 01:45 Lymph # (Auto) 3.4 10^3/uL (0.8-4.8) 02/07/24 01:45 [place] # (Auto) 0.8 10^3/uL (0.2-0.9) 02/07/24 01:45 Eos # (Auto) 0.2 10^3/uL (0.0-0.8) 02/07/24 01:45 Baso # (Auto) 0.1 10^3/uL (0.0-0.1) 02/07/24 01:45 Nucleated RBC % (auto) 0 % 02/07/24 01:45 Nucleated RBCs # 0.0 /100WBC 02/07/24 01:45 ESR 31 mm/hr (0-15) H 02/03/24 09:02 PT 14.60 SECONDS (12.1-14.9) 02/02/24 04:36 INR 1.11 (0.8-1.2) 02/02/24 04:36 Protein S Activity 77 % normal (60-140) 02/03/24 12:29 Sodium 131 mmol/L (136-145) L 02/07/24 01:45 Potassium 4.6 mmol/L (3.5-5.1) 02/07/24 01:45 Chloride 98 mmol/L (98-107) 02/07/24 01:45 Carbon Dioxide 20 mmol/L (22-29) L 02/07/24 01:45 Anion Gap 17.6 (5-19) 02/07/24 01:45 BUN 21 mg/dL (8-23) 02/07/24 01:45 Creatinine 1.3 mg/dL (0.5-0.9) H 02/07/24 01:45 GFR Calculation 40.7 mL/min (90-130) L 02/07/24 01:45 Glucose 199 mg/dL (65-115) H 02/07/24 01:45 POC Glucose 187 mg/dL (70-110) H 02/07/24 10:57 Estimat Average Glucose 200 01/31/24 11:46 Hemoglobin A1c 8.6 % (4.0-6.0) H 01/31/24 11:46 Calculated Osmolality 281 mOsm/kg (285-295) L 02/07/24 01:45 Lactic Acid 1.5 mmol/L (0.5-2.2) 01/31/24 11:46 Calcium 9.0 mg/dL (8.5-10.5) 02/07/24 01:45 Phosphorus 3.4 mg/dL (2.5-4.5) 02/07/24 01:45 Magnesium 1.8 mg/dL (1.7-2.3) 02/07/24 01:45 Ferritin 450 ng/mL (15-150) H 02/01/24 04:38 Total Bilirubin 0.4 mg/dL (0.15-1.2) 02/07/24 01:45 GGT 150 U/L (5-36) H 01/31/24 11:46 AST 40 U/L (0-32) H 02/07/24 01:45 ALT 73 U/L (0-33) H 02/07/24 01:45 Alkaline Phosphatase 144 U/L (35-105) H 02/07/24 01:45 Ammonia 13 umol/L (11-51) 02/03/24 12:29 Creatine Kinase 368 U/L (26-192) H* 01/31/24 11:46 Troponin T Baseline 27 ng/L (0-10) H 01/31/24 15:00 Troponin T 120 Minute 33.54 ng/L (0-10) H 01/31/24 18:28 Delta Troponin T 6.54 ABS# (0-10) 01/31/24 18:28 Troponin T Hi Sens 6Hr 30.49 ng/L (0-10) H 01/31/24 20:52 Troponin T Hi Sens 6Hr Delta 3.49 ng/L (0-12) 01/31/24 20:52 C-Reactive Protein 29.7 mg/L (0.0-4.9) H 02/03/24 09:02 NT-Pro-B Natriuret Pep 536 pg/mL (0-125) H 02/01/24 04:38 Total Protein 6.8 g/dL (6.6-8.7) 02/07/24 01:45 Albumin 3.2 g/dL (3.5-5.2) L 02/07/24 01:45 Globulin 3.6 g/dL (1.3-4.6) 02/07/24 01:45 Lipase 22 U/L (13-60) 01/31/24 11:46 Vitamin B12 1249 pg/mL (232-1245) H 02/03/24 09:02 Folate 5.5 ng/mL (4.8-37.3) 02/03/24 12:29 Procalcitonin 0.14 ng/mL (0-0.5) 02/03/24 09:02 TSH 1.41 uIU/mL (0.27-4.20) 02/03/24 09:02 Free T4 1.14 ng/dL (0.82-1.77) 02/03/24 09:02 Free T3 2.3 PG/ML (2.0-4.4) 02/03/24 09:02 Urine Color Yellow (Yellow) 02/05/24 13:18 Urine Appearance Cloudy (CLEAR) A 02/05/24 13:18 Urine pH 5 (5-7) 02/05/24 13:18 Ur Specific [place] 1.010 (1.005-1.030) 02/05/24 13:18 Urine Protein 1+ (Negative) H 02/05/24 13:18 Urine Glucose (UA) 2+ (Normal) H 02/05/24 13:18 Urine Ketones Negative (Negative) 02/05/24 13:18 Urine Blood 3+ (Negative) H 02/05/24 13:18 Urine Nitrate Negative (Negative) 02/05/24 13:18 Urine Bilirubin Neg (Negative) 02/05/24 13:18 Urine Urobilinogen Norm mg/dL (Negative) 02/05/24 13:18 Ur Leukocyte Esterase 2+ (Negative) H 02/05/24 13:18 Urine RBC 40-50 /hpf (0-2) H 02/05/24 13:18 Urine WBC 15-25 /hpf (0-5) H 02/05/24 13:18 Ur Squamous Epith Cells 0-4 /hpf (0-5) H 02/05/24 13:18 Ur Transition Epith Cell 0-4 /hpf 01/31/24 12:38 Amorphous Sediment Not Reportable 02/05/24 13:18 Urine Bacteria 3+ /hpf (NONE) H 02/05/24 13:18 Coarse Granular Casts 5-10 /lpf H 01/31/24 12:38 Other Casts Epithelial /lpf 01/31/24 12:38 Urine Mucus Trace /hpf 01/31/24 12:38 Salicylates < 0.3 mg/dL (3-10) L 01/31/24 11:46 Urine Opiates Screen Positive ng/mL (Negative) H 01/31/24 12:38 Acetaminophen < 5.0 ug/mL (10-30) L 01/31/24 11:46 Ur Barbiturates Screen Negative ng/mL (Negative) 01/31/24 12:38 Ur Phencyclidine Scrn Negative ng/mL (Negative) 01/31/24 12:38 Ur Amphetamines Screen Negative ng/mL (Negative) 01/31/24 12:38 U Benzodiazepines Scrn Negative ng/mL (Negative) 01/31/24 12:38 Urine Cocaine Screen Negative ng/mL (Negative) 01/31/24 12:38 U Marijuana (THC) Screen Negative ng/mL (Negative) 01/31/24 12:38 Ethyl Alcohol < 10 mg/dL (0-10) 01/31/24 11:46 Ethyl Alcohol < 10 mg/dL (0-10) 01/31/24 11:46 Serum Ketones Negative (Negative) 01/31/24 11:46 MADDY IFA Animal Tis Res Negative (NEGATIVE) 01/31/24 18:28 DA-1 Antibody <1.0 neg AI (<1.0 NEG) 01/31/24 18:28 SS-A Antibody <1.0 neg AI (<1.0 NEG) 01/31/24 18:28 SS-B Antibody <1.0 neg AI (<1.0 NEG) 01/31/24 18:28 Sm (Kumar) Antibody <1.0 neg AI (<1.0 NEG) 01/31/24 18:28 PLASTER FOREMAN Antibody <1.0 neg AI (<1.0 NEG) 01/31/24 18:28 Scl-70 Antibody <1.0 neg AI (<1.0 NEG) 01/31/24 18:28 Centromere B Antibody <1.0 neg AI (<1.0 NEG) 01/31/24 18:28 Thyroid Peroxidase Ab 1 IU/mL (<9) 01/31/24 18:28 Phospholipid Ab Comment See note 02/03/24 12:29 Complement C3c 209 mg/dL (83-193) H 01/31/24 18:28 Complement C4c 41 mg/dL (15-57) 01/31/24 18:28 CH50 Classical Pathway >60 U/mL (31-60) H 01/31/24 18:28 RPR Nonreactive (Nonreactive) 02/03/24 12:29 Hepatitis A IgM Ab Non-reactive (Nonreactive) 01/31/24 11:46 Hep Bs Antigen Non-reactive (Nonreactive) 01/31/24 11:46 Hep B Core IgM Ab Non-reactive (Nonreactive) 01/31/24 11:46 Hepatitis C Antibody Non-reactive (Nonreactive) 01/31/24 11:46 HIV 1&2 Ab & HIV 1 Ag Non-reactive (Non-Reactiv) 01/31/24 11:46 HIV 1&2 Antibody Non-reactive (Non-Reactiv) 01/31/24 11:46 Micro: Microbiology 02/05/24 13:18 Urine Culture - Preliminary Urine,Clean Catch Gram Negative Rods Other data: The MRI revealed Multiple tiny foci of restricted diffusion in the right parietal cortex. This likely represents multiple small acute or subacute watershed infarcts. The head CT reviewed 1. No evidence of intracranial hemorrhage or mass effect. 2. Moderate small vessel changes. Moderate parenchymal volume loss. 3. Chronic infarcts in the RIGHT posterior frontal lobe and RIGHT parietal lobe with encephalomalacia. 4. Chronic lacunar infarcts LEFT caudate and basal ganglia. 5. Intracranial vascular calcification. 6. No acute intracranial findings. A&P Assessment and plan (1) Acute CVA (cerebrovascular accident): The patient has MRI evidence of multiple small areas of acute/subacute watershed infarcts. Chronic lacunar infarcts in the left caudate in the basal ganglia region-all may suggest possible embolic strokes. At this point, it may be appropriate to do a JAMISON to rule out any cardiac source of embolization (2) ASHD (arteriosclerotic heart disease): Clinically stable (3) Essential hypertension: Fairly under control (4) Diabetes 1.5, managed as type 2: May continue on the current measures (5) Acute kidney injury: Clinically seems to be improving (6) Altered mental status: Clinically improving Qualifiers: Altered mental status type: unspecified Qualified Code(s): R41.82 - Altered mental status, unspecified Plan For further evaluation of her recurrent CVAs, it would be appropriate to do a JAMISON to evaluate for any cardiac source of embolization. The risk of aspiration, bleeding, soft tissue injury, perforation of the stomach/esophagus and other concomitant complications were explained to the patient in detail. The patient understood this well and consented to proceed. Will go ahead and schedule this today Consult Attestations Medical Necessity Statement: Patient requires continued hospital stay for close monitoring and further management Coding Level of Care Code 34699 Diagnoses Acute CVA (cerebrovascular accident) I63.9 ASHD (arteriosclerotic heart disease) I25.10 Essential hypertension I10 Diabetes 1.5, managed as type 2 E13.9 Acute kidney injury N17.9 Altered mental status, unspecified altered mental status type R41.82 Altered mental status type: unspecified
--- NOTE | 2024-02-07 13:22 | ANES.PREANE2 ---
Pre-Anesthetic Assessment Height/Weight: Height 1.55 m Weight 62.913 kg Temp Pulse Resp BP Pulse Ox O2 Del Method 97.8 F 87 18 144/95 97 Room Air 02/07/24 13:14 02/07/24 13:14 02/07/24 13:14 02/07/24 13:14 02/07/24 13:14 02/07/24 11:25 Operation Date: 02/07/24 13:30 Proposed Procedures p JAMISON(Not Applicable) - Brayden Figueroa MD Familial anesthetic complications: None Was Beta [place] taken within 24 hours: Yes Was Clonidine taken within 24 hours: N/A Last intake: > 8 hrs Social No alcohol and No tobacco Exam alert, oriented x 3, clear to auscultation bilaterally and regular rate & rhythm Airway Mallampati: Class III Dentition: full CV/HEM Hypertension and Myocardial Infarction Chronic Renal Insufficiency Metabolic Diabetes Mellitus Anesthetic Plan ASA status: 3 Anesthesia: MAC Risk of > 500 ml blood loss (7ml/kg in children): No Medications/Allergies Home Medications Medication Instructions Recorded Confirmed Last Taken Type clopidogrel 75 mg tablet 75 mg PO QAM 05/07/20 01/31/24 01/20/24 History insulin aspart U-100 100 unit/mL 5 unit SUBCUT TID PRN Hyperglycemia 05/07/20 01/31/24 07/01/22 14:00 History (3 mL) subcutaneous pen (Novolog FlexPen U-100 Insulin aspart) montelukast 10 mg tablet 10 mg PO QAM 05/07/20 01/31/24 01/20/24 History (Singulair) omeprazole 40 mg capsule,delayed 40 mg PO QAM 05/07/20 01/31/24 01/20/24 History release nitroglycerin 0.4 mg sublingual 0.4 mg sublingual Q5M PRN chest 12/24/20 01/31/24 Unknown Rx tablet (Nitrostat) pain #25 tabs insulin glargine 100 unit/mL 50 - 100 unit SUBCUT DAILY 12/30/21 01/31/24 01/20/24 History subcutaneous solution (Lantus U-100 Insulin) ASO to right #1 ea 08/27/22 01/31/24 Unknown Rx metoprolol tartrate 25 mg tablet 25 mg PO BID #180 tabs 09/29/23 01/31/2401/20/24 Rx aspirin 81 mg tablet,delayed 81 mg PO QAM 01/20/24 01/31/24 01/20/24 History release budesonide-formoterol HFA 160 1 puff inhalation BID 01/20/24 01/31/24 Unknown History mcg-4.5 mcg/actuation aerosol inhaler (Symbicort) chlorzoxazone 500 mg tablet 500 mg PO TID PRN MUSCLE SPASMS 01/20/24 01/31/24 Unknown History diclofenac sodium 75 mg 75 mg PO Q12H PRN pain #20 tabs 01/20/24 01/31/24 Unknown Rx tablet,delayed release gabapentin 800 mg tablet 800 mg PO QID 01/20/24 01/31/24 01/20/24 History hydrocodone 5 mg-acetaminophen 325 1 tab PO Q6H PRN pain #15 tabs 01/20/24 01/31/24 Unknown Rx mg tablet lisinopril 20 mg tablet 20 mg PO QAM 01/20/24 01/31/24 01/20/24 History meloxicam 15 mg tablet 15 mg PO QAM 01/20/24 01/31/24 01/20/24 History ropinirole 0.25 mg tablet 25 mg PO QPM 01/20/24 01/31/24 01/19/24 History rosuvastatin 40 mg tablet 40 mg PO QPM 01/20/24 01/31/24 01/19/24 History tizanidine 4 mg tablet 4 mg PO Q6H PRN muscle spasticity 01/20/24 01/31/24 Unknown Rx #20 tabs cefdinir 300 mg capsule 300 mg PO BID 7 days #14 caps 01/25/24 01/31/24 Unknown Rx cyclobenzaprine 10 mg tablet 10 mg PO Q8H PRN muscle spasm, 01/25/24 01/31/24 Unknown Rx pain #20 tabs Allergies Allergy/AdvReac Type Severity Reaction Status Date / Time Penicillins Allergy ALGY-Rash Verified 01/31/24 11:19 Current Medications Generic Name Dose Route Start Last Admin Trade Name Freq PRN Reason Stop Dose Admin Citalopram Hydrobromide 10 mg 02/04/24 13:35 02/07/24 08:28 Citalopram 20 Mg Tablet PO 10 mg DAILY KENDALL Administration Folic Acid 1 mg 02/03/24 12:35 02/07/24 08:28 Folic Acid 1 Mg Tablet PO 1 mg DAILY KENDALL Administration Gabapentin 800 mg 02/04/24 11:15 02/07/24 12:00 Gabapentin 400 Mg Capsule PO 800 mg Q6H KENDALL Administration Heparin Sodium (Porcine) 5,000 unit 01/31/24 17:58 02/07/24 05:56 Heparin 5,000 Unit/Ml Inj 1 Ml SUBCUT 5,000 unit Q12H KENDALL Administration Ceftriaxone Sodium 1,000 mg/ 50 mls @ 100 mls/hr 02/05/24 16:30 02/06/24 17:50 Sodium Chloride IV Infused Q24H KENDALL Infusion Protocol Sodium Chloride 1,000 mls @ 30 mls/hr 02/07/24 13:15 02/07/24 13:17 Sodium Chloride 0.9% IV 30 mls/hr .Q24H KENDALL Administration Insulin Human Lispro 0 unit 01/31/24 18:00 02/07/24 11:59 Insulin Lispro 100 Unit/1 Ml SUBCUT Not Given TIDWM KENDALL Protocol Morphine Sulfate 2 mg 01/31/24 17:58 02/07/24 00:24 Morphine 4 Mg/Ml Sdv 1 Ml IVP 2 mg Q4H PRN Administration SEVERE PAIN Pantoprazole Sodium 40 mg 01/31/24 17:58 02/06/24 17:13 Pantoprazole 40 Mg Sdv IVP 40 mg Q24H KENDALL Administration Ropinirole HCl 0.25 mg 01/31/24 18:00 02/06/24 17:13 Ropinirole 0.25 Mg Tablet PO 0.25 mg QPM KENDALL Administration Ticagrelor 90 mg 02/06/24 09:00 02/07/24 08:28 Ticagrelor 90 Mg Tablet PO 90 mg BID KENDALL Administration PFSH Anesthesia Medical History Tobacco abuse Essential hypertension COPD (chronic obstructive pulmonary disease) Myocardial infarction ASHD (arteriosclerotic heart disease) Dyslipidemia Diabetes 1.5, managed as type 2 Surgical History S/P PTCA (percutaneous transluminal coronary angioplasty) Family History Other CAD (coronary artery disease) Cancer Diabetes Social History Smoking and tobacco/nicotine status: current every day tobacco/nicotine user cigarettes Alcohol intake: never Substance/Drug Use: never Data Anesthesia 02/07/24 01:45 02/07/24 01:45 Short CBC 02/06/24 02/07/24 Range/Units 04:56 01:45 WBC 12.57 H 12.09 H (3.29-11.43) 10^3/uL Hgb 12.70 12.60 (11.27-16.99) g/dL Hct 38.1 37.1 (36-47) % MCV 94.5 92.8 (85-98) fl Plt Count 295 287 (157-399) 10^3/cmm Neut % (Auto) 63.6 62.1 % Neut # (Auto) 7.99 H 7.51 (1.8-7.7) 10^3/uL BMP 02/06/24 02/07/24 04:56 01:45 Sodium 134 L 131 L Potassium 4.2 4.6 Chloride 102 98 Carbon Dioxide 19 L 20 L BUN 26 H 21 Creatinine 1.3 H 1.3 H Glucose 193 H 199 H Calcium 9.1 9.0 Liver Function 02/06/24 02/07/24 Range/Units 04:56 01:45 Total Bilirubin 0.5 0.4 (0.15-1.2) mg/dL AST 50 H 40 H (0-32) U/L ALT 83 H 73 H (0-33) U/L Alkaline Phosphatase 157 H 144 H (35-105) U/L Albumin 3.1 L 3.2 L (3.5-5.2) g/dL Urine 02/05/24 Range/Units 13:18 Urine Color Yellow (Yellow) Urine Appearance Cloudy A (CLEAR) Urine pH 5 (5-7) Ur Specific [place] 1.010 (1.005-1.030) Urine Protein 1+ H (Negative) Urine Glucose (UA) 2+ H (Normal) Urine Ketones Negative (Negative) Urine Nitrate Negative (Negative) Urine Bilirubin Neg (Negative) Ur Leukocyte Esterase 2+ H (Negative) Urine RBC 40-50 H (0-2) /hpf Urine WBC 15-25 H (0-5) /hpf Microbiology 02/05/24 13:18 Urine Culture - Preliminary Urine,Clean Catch Gram Negative Rods Cardiac Studies: Echocardiogram 01/31/24
--- NOTE | 2024-02-07 13:32 | W.PM.OPSUD ---
Surgery/Procedure H&P Update DATE OF PROCEDURE: February 07, 2024 DATE H&P PERFORMED: 02/07/24 H&P UPDATE INFORMATION: I have reviewed H&P completed within last 30 days, I have examined patient prior to procedure and No changes to prior documentation PREOP DIAGNOSIS: Multiple small areas of acute and subacute watershed infarcts PRIMARY INDICATION FOR PROCEDURE: Possible embolic stroke, rule out cardiac source PLANNED PROCEDURE: Operation Date: 02/07/24 13:30 Proposed Procedures p JAMISON(Not Applicable) - Brayden Figueroa MD
--- NOTE | 2024-02-07 14:25 | ANE.PACU2 ---
Inpatient post-anesthesia follow up: Airway intact: Yes Vital signs: Temperature 97.7 F Pulse Rate 89 Respiratory Rate 18 Blood Pressure 140/83 Pulse Oximetry 99 Oxygen Delivery Me thod Room Air Oxygen Flow Rate 6 Fraction of Inspir ed Oxygen Hydration adequate: Yes Nausea and vomiting: No Pain level: 1 Mental status: Baseline
[2024-02-07 14:46] LABS: SARS Covid-2 Antigen negative (Negative)
--- NOTE | 2024-02-07 16:58 | PC.NURSE ---
Pt plan to discharge immediately after J[facility]; however, case management Jonatan states that [facility] did not have an RN to admit pt. Adrianna, RN from case management contacts [facility]; whom states they will call-in staff to admit pt. IV out, ready for discharge. Son should be transporting pt to [facility] at 1730.
[2024-02-08 00:01] LABS: DNA AB (DS) CRITHIDIA,IFA NEGATIVE (NEGATIVE)
[2024-02-08 04:09] LABS: PROTEIN C, ACTIVITY 122 % normal (70-180)
[2024-02-09 03:04] LABS: Factor 5 Leiden Mutation NEGATIVE; PROTHROMBIN (FACTOR II) 20210G NEGATIVE
[2024-02-11 21:59] LABS: Beta 2 Glycoprotein IGA <2.0 U/mL; Beta 2 Glycoprotein IGG <2.0 U/mL; Beta 2 Glycoprotein IGM <2.0 U/mL; CARDIOLIPIN AB (IGA) <2.0 APL-U/mL; CARDIOLIPIN AB (IGG) <2.0 GPL-U/mL; CARDIOLIPIN AB (IGM) <2.0 MPL-U/mL
== END 2024-02-07 17:20 | disposition skilled nursing facility (03) | DRG 65 ==
LOC: ER 15:17 → MEDSURG 17:23
PROVIDERS: Internal Medicine Cardiovascular Disease; Admitting Provider Family Medicine; Emergency Provider Emergency Medicine; PCP Internal Medicine; Visit Provider Family Medicine
PROC: (CPT 93312; principal; 2024-02-07 13:30)
DX: I63.9 Cerebral infarction, unspecified (principal); E87.1 Hypo-osmolality and hyponatremia; E87.20 Acidosis, unspecified; N17.9 Acute kidney failure, unspecified; M62.82 Rhabdomyolysis; G93.40 Encephalopathy, unspecified; I10 Essential (primary) hypertension; I25.10 Atherosclerotic heart disease of native coronary artery without angina pectoris; E13.65 Other specified diabetes mellitus with hyperglycemia; M54.40 Lumbago with sciatica, unspecified side; F17.210 Nicotine dependence, cigarettes, uncomplicated; J44.9 Chronic obstructive pulmonary disease, unspecified; E78.5 Hyperlipidemia, unspecified; M48.061 Spinal stenosis, lumbar region without neurogenic claudication; M51.26 Other intervertebral disc displacement, lumbar region; E86.0 Dehydration; Z11.52 Encounter for screening for COVID-19; Z79.82 Long term (current) use of aspirin; Z79.02 Long term (current) use of antithrombotics/antiplatelets; Z79.4 Long term (current) use of insulin; Z95.5 Presence of coronary angioplasty implant and graft; I25.2 Old myocardial infarction; Z86.73 Personal history of transient ischemic attack (TIA), and cerebral infarction without residual deficits
CPT/HCPCS: 36415; 36416; 70450; 70551; 71045; 71250; 72148; 74176; 76705; 80053; 80074; 80306; 80307; 81001; 81241; 82009; 82140; 82550; 82607; 82728; 82746; 82962; 82977; 83036; 83516; 83605; 83690; 83735; 83880; 84100; 84145; 84439; 84443; 84481; 84484; 85025; 85210; 85303; 85306; 85610; 85651; 86140; 86146; 86147; 86160; 86162; 86235; 86255; 86376; 86592; 87040; 87077; 87086; 87186; 87426; 87806; 92507; 92523; 92610; 93005; 93306; 93312; 93320; 93325; 93880; 94664; 96360; 96361; 96372; 97161; 97165; 97168; 97530; 97535; 99285; C9113; J0696; J1644; J1815; J2270; J2371; J2704; J3411; J7030

== ENCOUNTER → 2024-03-02 13:46 | Outpatient (BNVA) | payer MEDICARE, OTHER, SELFPAY | PROVIDERS: PCP Internal Medicine; Referring Provider Family Medicine; Visit Provider Orthopaedic Surgery | DX: M54.50 Low back pain, unspecified (principal); M48.062 Spinal stenosis, lumbar region with neurogenic claudication; M54.9 Dorsalgia, unspecified | CPT/HCPCS: 72110; 99204 ==

== ENCOUNTER → 2024-04-13 09:55 | Outpatient (BNVA) | payer MEDICARE, OTHER, SELFPAY | PROVIDERS: PCP Internal Medicine; Referring Provider Orthopaedic Surgery; Visit Provider Anesthesiology Pain Medicine | DX: M48.062 Spinal stenosis, lumbar region with neurogenic claudication (principal); M51.16 Intervertebral disc disorders with radiculopathy, lumbar region | CPT/HCPCS: 99205 ==

== ENCOUNTER → 2024-04-18 14:20 | Outpatient (BNVA) | payer MEDICARE, SELFPAY | PROVIDERS: PCP Internal Medicine; Visit Provider Orthopaedic Surgery | DX: M48.062 Spinal stenosis, lumbar region with neurogenic claudication (principal) | CPT/HCPCS: 99213 ==

== ENCOUNTER → 2024-04-26 13:26 | Outpatient (BNVA) | payer MEDICARE, SELFPAY | PROVIDERS: PCP Internal Medicine; Visit Provider Anesthesiology Pain Medicine | DX: M54.16 Radiculopathy, lumbar region (principal) | CPT/HCPCS: 64483; 64484; J1100; J3490 ==

== ENCOUNTER 2024-05-10 08:56 | Oncology outpatient (recurring) (ONCR) | payer MEDICARE, SELFPAY ==
[2024-05-10 11:41] LABS: Basophils # 0.1 10^3/uL (0.0-0.1); Eosinophils # 0.3 10^3/uL (0.0-0.8); Eosinophils % 2.5 %; Hematocrit 39.4 % (36-47); Lymphocytes # 3.5 10^3/uL (0.8-4.8); Lymphocytes % 25.1 %; Mean Corpuscular HGB Conc 32.2 g/dL (30-55); Mean Corpuscular Volume 92.9 fl (85-98); Mean Platelet Volume 12.1 fL (7.4-10.4); Monocytes # 0.9 10^3/uL (0.2-0.9); Monocytes % 6.3 %; Neutrophils # 8.93 10^3/uL (1.8-7.7); Neutrophils % 64.7 %; Nucleated Red Blood Cells % 0 %; Platelet Count 183 10^3/cmm (157-399); Red Blood Count 4.24 10^6/uL (3.85-5.65); Red Cell Distribution Width 14.5 % (12.1-15.1)
[2024-05-10 11:59] LABS: LAB Peripheral Smear Sent for Review
[2024-05-10 12:00] LABS: Erythrocyte Sedimentation Rate 15 mm/hr (0-15)
[2024-05-10 12:26] LABS: Alanine Aminotransferase 48 U/L (0-33); Albumin Level 4.3 g/dL (3.5-5.2); Alkaline Phosphatase 83 U/L (35-105); Aspartate Amino Transferase 41 U/L (0-32); Blood Urea Nitrogen 20 mg/dL (8-23); Calcium 9.6 mg/dL (8.5-10.5); Carbon Dioxide 22 mmol/L (22-29); Chloride 102 mmol/L (98-107); Globulin 2.9 g/dL (1.3-4.6); Glomerular Filtration Rate 49.2 mL/min (90-130); Glucose 202 mg/dL (65-115); Iron 67 ug/dL (37-145); Lactate Dehydrogenase 132 U/L (135-214); Osmolality Calculated 290 mOsm/kg (285-295); Percent Saturation 15.6 % (20-50); Sodium 136 mmol/L (136-145); Thyroid Stimulating Hormone 1.01 uIU/mL (0.27-4.20); Total Bilirubin 0.4 mg/dL (0.15-1.2); Total Iron Binding Capacity 428 mcg/dl; Total Protein 7.2 g/dL (6.6-8.7); Unsaturated Iron Binding 361 ug/dL (112-347); Vitamin B12 532 pg/mL (232-1245)
== END 2024-05-28 23:59 | disposition home or self-care (01) ==
LOC: ONCMED 08:58
PROVIDERS: PCP Internal Medicine; Visit Provider Internal Medicine Medical Oncology
DX: D72.829 Elevated white blood cell count, unspecified (principal); R53.83 Other fatigue; E13.9 Other specified diabetes mellitus without complications
CPT/HCPCS: 36415; 80053; 82607; 83540; 83550; 83615; 84443; 85025; 85651; 86140; 88374; 99202; 99204

== ENCOUNTER → 2024-05-15 13:38 | Outpatient (BNVA) | payer MEDICARE, SELFPAY | PROVIDERS: PCP Internal Medicine; Visit Provider Anesthesiology Pain Medicine | DX: M54.16 Radiculopathy, lumbar region (principal); M48.062 Spinal stenosis, lumbar region with neurogenic claudication | CPT/HCPCS: 64483; 64484; J1100; J3490 ==

== ENCOUNTER 2024-07-24 14:02 | Inpatient (IN) | payer MEDICARE, OTHER, SELFPAY ==
[2024-07-24] VITALS (17 sets, daily range): BP systolic 73–141; BP diastolic 42–81; PULSE 61–92; RESP 15–18; TEMP 36.4–36.6; O2SAT 90–100; BMI 30.8
--- NOTE | 2024-07-24 14:08 | XR_ITS ---
WS: [id number] Exam: XR chest 1V portable [id number] Date/Time of Exam: 07/24/2024 2:10 PM Reason For Exam: dyspnea/cough Comparison 01/31/2024. The lungs are fully expanded and clear. Normal cardiomediastinal silhouette. Scattered calcified gran ulomas. Bony structures are intact. No pleural effusion. XR/XR chest 1V portable [id number] IMPRESSION: 1. No acute cardiopulmonary finding.
--- NOTE | 2024-07-24 14:08 | ECG_ITS ---
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 Measurements Intervals [place] Rate: 80 P: 67 NC: 139 QRS: 47 QRSD: 99 T: 71 QT: 454 QTc: 525 Interpretive Statements SINUS RHYTHM MODERATE ST DEPRESSION [0.05+ mV ST DEPRESSION] PROLONGED QT INTERVAL Compared to ECG 01/31/2024 15:27:08 ST (T wave) deviation now present Prolonged QT interval now present T-wave abnormality no longer present Electronically Signed On 07-24-2024 22:49:05 CDT by Brayden Figueroa M.D. [id number]
--- NOTE | 2024-07-24 14:13 | W.ED.GENADLT ---
HPI - General Adult General: Chief complaint: Weakness Stated complaint: hypotension Time Seen by Provider: 07/24/24 14:07 History of Present Illness: 69-year-old female presents to the emergency room with complaints of a near syncopal episode. Patient was seen earlier today for a bladder infection and given prescription for cephalexin she gone to [facility] to get the prescription while she is walking around [facility] she became very weak felt faint she was able to lower self to the ground she did have an episode of syncope after she lowered herself to the ground she denies any chest pain or shortness of breath she has felt hot and flushed at times over the last 24 hours but is not ever measured a fever. Additionally she does have a history of coronary artery disease has had several stents in the past but has not had any chest pain associated with this. She is complaining of some flank pain little more in the left than on the right. Not having any chest pain at this time initial EKG does not show any changes significant from previous EKG in January of this year Associated symptoms: Reports malaise; Deny chest pain, dyspnea or rash Related Data Home Medications Medication Instructions Recorded Confirmed montelukast 10 mg tablet 10 mg PO QAM 05/07/20 05/15/24 (Singulair) omeprazole 40 mg capsule,delayed 40 mg PO QAM 05/07/20 05/15/24 release budesonide-formoterol HFA 160 1 puff inhalation BID 01/20/24 05/15/24 mcg-4.5 mcg/actuation aerosol inhaler (Symbicort) gabapentin 800 mg tablet 800 mg PO QID 01/20/24 05/15/24 ropinirole 0.25 mg tablet 25 mg PO QPM 01/20/24 05/15/24 rosuvastatin 40 mg tablet 40 mg PO QPM 01/20/24 05/15/24 clopidogrel 75 mg tablet mg PO 05/10/24 05/15/24 insulin glargine 100 unit/mL (3 unit SUBCUT 05/10/24 05/15/24 mL) subcutaneous pen (Lantus Solostar U-100 Insulin) metoprolol tartrate 25 mg tablet mg PO 05/10/24 05/15/24 Previous Rx's Medication Instructions Recorded insulin aspart U-100 100 unit/mL See Rx Instructions .Route 02/07/24 (3 mL) subcutaneous pen (Novolog .COMPLEX PRN Hyperglycemia #15 mL FlexPen U-100 Insulin aspart) insulin glargine 100 unit/mL 5 unit (0.05 mL) SUBCUT DAILY #10 02/07/24 subcutaneous solution (Lantus mL U-100 Insulin) lisinopril 20 mg tablet 10 mg (1/2 x 20 mg) PO QAM 30 days 02/07/24 #15 tabs Allergies Allergy/AdvReac Type Severity Reaction Status Date / Time oak Allergy Mild ALGY-Nasal Verified 07/24/24 14:16 Discharge Penicillins Allergy ALGY-Rash Verified 07/24/24 14:16 Review of Systems Const: Reports: fever(s) (Subjective), fatigue and malaise; Denies: chills Card: Denies: chest pain Resp: Denies: dyspnea GI: Denies: abdominal pain : Reports: dysuria; Denies: urinary frequency or urinary urgency Musc: Denies: neck pain or back pain Skin/Breast: Denies: rash PFSH ED PFSH: Medical History Degenerative joint disease of spine GERD (gastroesophageal reflux disease) Tobacco abuse Essential hypertension COPD (chronic obstructive pulmonary disease) Myocardial infarction ASHD (arteriosclerotic heart disease) Dyslipidemia Diabetes 1.5, managed as type 2 Surgical History History of hand surgery Joint replacements both hands Status post tubal ligation Status post ORIF of fracture of ankle S/P PTCA (percutaneous transluminal coronary angioplasty) Family History Father Lung cancer Mother Heart attack Sister Cancer COVID-19 Other CAD (coronary artery disease) Diabetes Social History Smoking and tobacco/nicotine status: current every day tobacco/nicotine user cigarettes Packs smoked per day: 0.5 Years cigarettes smoked: 50 Alcohol intake: current Alcohol intake frequency: holidays/special occasions only Substance/Drug Use: never Physical Exam Const: GENERAL APPEARANCE: cooperative ORIENTATION/CONSCIOUSNESS: Yes awake, Yes oriented to person, Yes oriented to place and Yes oriented to time HENMT: COMMON NORMALS: normocephalic, atraumatic and hearing grossly normal bilaterally HEAD & SCALP: normocephalic and atraumatic Resp: COMMON NORMALS: normal respiratory effort, No retractions, No use of accessory muscles and clear to auscultation bilaterally AUSCULTATION: clear to auscultation bilaterally Cardio: COMMON NORMALS: regular rhythm and No murmurs present (Cardio) RATE: tachycardic RHYTHM: regular rhythm GI: COMMON NORMALS: Soft to palpation and No hepatosplenomegaly present AUSCULTATION: Yes normoactive bowel sounds PALPATION: Yes Soft to palpation, No Tenderness to palpation present (GI), No Guarding due to palpation present (GI) and Yes No hepatosplenomegaly present : BLADDER/KIDNEY EXAM: Yes CVA tenderness Back/Pelvis: GENERAL BACK: Yes CVA tenderness CVA tenderness: left Extremity: COMMON NORMALS: normal to inspection, capillary refill normal, no clubbing, cyanosis or edema, no calf tenderness and no pedal edema Neuro: SENSORIUM/ORIENTATION: Yes oriented to person, Yes oriented to place and Yes oriented to time Skin: COMMON NORMALS: no rashes or lesions noted GENERAL SKIN EXAM: no rashes or lesions noted Course Vital Signs: Vital signs: Vital Signs Temperature 98 F 07/24/24 14:06 Pulse Rate 80 07/24/24 18:18 Blood Pressure 106/59 07/24/24 18:18 Pulse Oximetry 96 07/24/24 18:18 Oxygen Delivery Me thod Room Air 07/24/24 17:33 [facility] - General Adult Medical Decision Making Patient is septic. Significant leukocytosis elevated lactic acid hypotensive on arrival she did respond well to fluid bolus IV antibiotics have been started reviewed previous urine cultures which showed sensitive to ceftriaxone discussed results with patient discussed with hospitalist orders written Lab Data 07/24/24 14:10 07/24/24 14:10 Radiology Impressions Chest X-Ray 07/24/24 14:08 IMPRESSION: 1. No acute cardiopulmonary finding. Abdomen/Pelvis CT 07/24/24 14:45 IMPRESSION: 1. No acute abdominal or pelvic abnormalities. 2. No renal obstruction or perinephric stranding. 3. Mild hepatic steatosis and hepatomegaly. 4. No GI tract obstruction. Normal appendix. Venous Duplex 07/24/24 16:26 IMPRESSION: No evidence of deep vein thrombosis. Laboratory Results WBC 19.66 10^3/uL (3.29-11.43) H 07/24/24 14:10 RBC 4.69 10^6/uL (3.85-5.65) 07/24/24 14:10 Hgb 13.50 g/dL (11.27-16.99) 07/24/24 14:10 Hct 40.6 % (36-47) 07/24/24 14:10 MCV 86.6 fl (85-98) 07/24/24 14:10 MCH 28.8 pg (27-33) 07/24/24 14:10 MCHC 33.3 g/dL (30-55) 07/24/24 14:10 RDW 14.0 % (12.1-15.1) 07/24/24 14:10 Plt Count 287 10^3/cmm (157-399) 07/24/24 14:10 MPV 12.6 fL (7.4-10.4) H 07/24/24 14:10 Lymph % (Auto) Not Reportable 07/24/24 14:10 [place] % (Auto) Not Reportable 07/24/24 14:10 Lymph # (Auto) Not Reportable 07/24/24 14:10 [place] # (Auto) Not Reportable 07/24/24 14:10 Total Counted 100 (0-100) 07/24/24 14:10 Atypical Lymphs % 14.0 % (0-5) H 07/24/24 14:10 Absolute Neutrophils 13.2 10^3/cmm (1.4-6.5) H 07/24/24 14:10 Segmented Neutrophils 67 % 07/24/24 14:10 Abs Segm Neuts (Man) 13.2 10/cmm (1.6-7.1) H 07/24/24 14:10 Band Neutrophils 0.0 % 07/24/24 14:10 Abs Band Neuts (Man) 0.0 10^3/cmm (0.0-1.2) 07/24/24 14:10 Absolute Lymphocytes 6.5 10^3/cmm (1.2-3.4) H 07/24/24 14:10 Lymphocytes (Manual) 19 % 07/24/24 14:10 Monocytes (Manual) 0.0 % 07/24/24 14:10 Absolute Monocytes 0.0 10^3/cmm (0.1-0.6) L 07/24/24 14:10 Eosinophils (Manual) 0 % 07/24/24 14:10 Absolute Eosinophils 0.0 10^3/cmm (0.0-0.7) 07/24/24 14:10 Basophils (Manual) 0.0 % 07/24/24 14:10 Absolute Basophils 0.0 10^3/cmm (0.0-0.2) 07/24/24 14:10 Platelet Estimate Normal (Normal) 07/24/24 14:10 ESR 27 mm/hr (0-15) H 07/24/24 14:10 PT 14.20 SECONDS (12.1-14.9) 07/24/24 14:10 INR 1.07 (0.8-1.2) 07/24/24 14:10 Sodium 128 mmol/L (136-145) L 07/24/24 14:10 Potassium 4.2 mmol/L (3.5-5.1) 07/24/24 14:10 Chloride 91 mmol/L (98-107) L 07/24/24 14:10 Carbon Dioxide 15 mmol/L (22-29) L 07/24/24 14:10 Anion Gap 26.2 (5-19) H 07/24/24 14:10 BUN 50 mg/dL (8-23) H 07/24/24 14:10 Creatinine 3.1 mg/dL (0.5-0.9) H 07/24/24 14:10 GFR Calculation 14.9 mL/min (90-130) L 07/24/24 14:10 Glucose 290 mg/dL (65-115) H 07/24/24 14:10 Calculated Osmolality 290 mOsm/kg (285-295) 07/24/24 14:10 Lactic Acid 3.8 mmol/L (0.5-2.2) H 07/24/24 14:38 Calcium 10.1 mg/dL (8.5-10.5) 07/24/24 14:10 Phosphorus 2.7 mg/dL (2.5-4.5) 07/24/24 14:10 Magnesium 3.0 mg/dL (1.7-2.3) H 07/24/24 14:10 Total Bilirubin 0.4 mg/dL (0.15-1.2) 07/24/24 14:10 AST 61 U/L (0-32) H 07/24/24 14:10 ALT 41 U/L (0-33) H 07/24/24 14:10 Alkaline Phosphatase 120 U/L (35-105) H 07/24/24 14:10 Creatine Kinase 826 U/L (26-192) H* 07/24/24 14:10 Troponin T Baseline 36 ng/L (0-10) H 07/24/24 14:10 Troponin T 120 Minute 27.70 ng/L (0-10) H 07/24/24 16:12 Delta Troponin T -8.30 ABS# (0-10) L 07/24/24 16:12 C-Reactive Protein 4.2 mg/L (0.0-4.9) 07/24/24 14:10 NT-Pro-B Natriuret Pep 1855 pg/mL (0-125) H 07/24/24 14:10 Total Protein 7.6 g/dL (6.6-8.7) 07/24/24 14:10 Albumin 4.6 g/dL (3.5-5.2) 07/24/24 14:10 Globulin 3.0 g/dL (1.3-4.6) 07/24/24 14:10 Procalcitonin 0.68 ng/mL (0-0.5) H 07/24/24 14:10 Random Cortisol 50.61 ug/dL (2.47-19.5) H 07/24/24 14:10 Urine Color Yellow (Yellow) 07/24/24 16:36 Urine Appearance Clear (CLEAR) 07/24/24 16:36 Urine pH 5.5 (5-7) 07/24/24 16:36 Ur Specific [place] 1.005 (1.005-1.030) 07/24/24 16:36 Urine Protein 1+ (Negative) A 07/24/24 16:36 Urine Glucose (UA) Trace (Normal) H 07/24/24 16:36 Urine Ketones Negative (Negative) 07/24/24 16:36 Urine Blood 2+ (Negative) A 07/24/24 16:36 Urine Nitrate Negative (Negative) 07/24/24 16:36 Urine Bilirubin Negative (Negative) 07/24/24 16:36 Urine Urobilinogen 0.2 mg/dL (Negative) 07/24/24 16:36 Ur Leukocyte Esterase 1+ (Negative) A 07/24/24 16:36 Urine RBC 0-2 /hpf (0-2) 07/24/24 16:36 Urine WBC 21-50 /hpf (0-5) H 07/24/24 16:36 Ur Squamous Epith Cells 0-5 /hpf (0-5) 07/24/24 16:36 Amorphous Sediment Not Reportable 07/24/24 16:36 Urine Bacteria None seen /hpf (NONE) 07/24/24 16:36 Hyaline Casts 7.01 /lpf 07/24/24 16:36 Serum Ketones Negative (Negative) 07/24/24 14:10 All radiology interpretation(s) finalized by discharge EKG Data EKG 1: Interpretation: EKG 07/24/2024 1408 normal sinus rhythm. There is nonspecific ST changes precordial leads particularly V1 and 2 and the 4 5 and 6 these are unchanged from 01/31/2024. Today's EKG is a rate of 80 with a normal PA interval QT interval corrected is 490. No ST elevation. Computer generated interpretation: Chest X-Ray 07/24/24 14:08 IMPRESSION: 1. No acute cardiopulmonary finding. Abdomen/Pelvis CT 07/24/24 14:45 IMPRESSION: 1. No acute abdominal or pelvic abnormalities. 2. No renal obstruction or perinephric stranding. 3. Mild hepatic steatosis and hepatomegaly. 4. No GI tract obstruction. Normal appendix. Venous Duplex 07/24/24 16:26 IMPRESSION: No evidence of deep vein thrombosis. Discharge Plan Discharge Patient Disposition: Admitted As Inpatient Admit Provider: Raheel Child Clinical Impression: Sepsis, Diabetes 1.5, managed as type 2, Urinary tract infection, Rhabdomyolysis, Acute pyelonephritis, Acute kidney injury Condition: Stable Coding Level of Care Code ED Sterile Supply Technician for Edilia Oquendo
[2024-07-24 14:17] LABS: Hematocrit 40.6 % (36-47); Mean Corpuscular HGB Conc 33.3 g/dL (30-55); Mean Corpuscular Hemoglobin 28.8 pg (27-33); Mean Corpuscular Volume 86.6 fl (85-98); Mean Platelet Volume 12.6 fL (7.4-10.4); Platelet Count 287 10^3/cmm (157-399); Red Blood Count 4.69 10^6/uL (3.85-5.65); White Blood Count 19.66 10^3/uL (3.29-11.43)
[2024-07-24] MEDS: aspirin 81 mg Chew Tablet 324 MG PO (14:20)
[2024-07-24] MEDS: sodium chloride 0.9% 1,000 ML 999 ML IV (14:20)
[2024-07-24 14:42] LABS: Slide Review Slide Review Perform; Troponin(5th) Baseline 36 ng/L (0-10)
[2024-07-24 14:43] LABS: Absolute Neutrophil 13.2 10^3/cmm (1.4-6.5); Absolute Segmented Neutrophil 13.2 10/cmm (1.6-7.1); Eosinophils 0 %; Lymphocytes 19 %; Lymphocytes Absolute 6.5 10^3/cmm (1.2-3.4); Platelet Estimate Normal (Normal); Segmented Neutrophils 67 %; Total Cells Counted 100 (0-100)
--- NOTE | 2024-07-24 14:45 | CT_ITS ---
WS: [id number] CT ABDOMEN AND PELVIS NONCONTRAST HISTORY: flank pain TECHNIQUE: Imaging performed through the abdomen and pelvis. Coronal and sagittal reformats are submi tted. All CT scans at [facility] use at least one of these dose optimization techniques: auto mated exposure control; mA and/or kV adjustment per patient size (includes targeted exams where dose is matched to clinical indication); or iterative reconstruction. DLP: 538.70 mGy.cm COMPARISON: 01/31/2024 Lower thorax: Benign granuloma at the lung bases. Small hiatal hernia. Liver: Mild hepatomegaly and hepatic steatosis. Gallbladder: Normal gallbladder. No pericholecystic fluid or cholelithiasis. No gallbladder wall thic kening. Pancreas: Normal size and attenuation. Normal pancreatic duct. No pancreatitis or mass. Spleen: Normal. Adrenal glands: Normal. No mass. Right kidney: Normal size kidney with no mass or hydronephrosis. Left kidney: Normal size kidney with no mass or hydronephrosis. Aorta: Mild atherosclerosis abdominal aorta with no aneurysm. No free fluid, intraperitoneal air or significant lymphadenopathy. GI tract: Normal noncontrast imaging of the stomach, small bowel and colon. No obstruction or wall th ickening. Normal appendix. Abdominal wall: Negative. No hernia. Pelvis: Normal. Urinary bladder is not distended resulting in diffuse bladder wall thickening. Osseous structures: Increase in lumbar lordosis. CT/CT kidney stone [id number] IMPRESSION: 1. No acute abdominal or pelvic abnormalities. 2. No renal obstruction or perinephric stranding. 3. Mild hepatic steatosis and hepatomegaly. 4. No GI tract obstruction. Normal appendix.
[2024-07-24 14:46] LABS: Alanine Aminotransferase 41 U/L (0-33); Albumin Level 4.6 g/dL (3.5-5.2); Alkaline Phosphatase 120 U/L (35-105); Anion Gap 26.2 (5-19); Aspartate Amino Transferase 61 U/L (0-32); Blood Urea Nitrogen 50 mg/dL (8-23); Calcium 10.1 mg/dL (8.5-10.5); Carbon Dioxide 15 mmol/L (22-29); Chloride 91 mmol/L (98-107); Creatinine Clr Calc Pharmacy 15.0153; Glomerular Filtration Rate 14.9 mL/min (90-130); Glucose 290 mg/dL (65-115); Osmolality Calculated 290 mOsm/kg (285-295); Potassium 4.2 mmol/L (3.5-5.1); Sodium 128 mmol/L (136-145); Total Bilirubin 0.4 mg/dL (0.15-1.2); Total Protein 7.6 g/dL (6.6-8.7)
[2024-07-24] MEDS: cefTRIAXone 1,000 mg SDV 1000 MG IVP (15:01)
[2024-07-24 15:10] LABS: Lactic Sepsis W/Reflex 3.8 mmol/L (0.5-2.2)
[2024-07-24 16:13] LABS: Erythrocyte Sedimentation Rate 27 mm/hr (0-15)
--- NOTE | 2024-07-24 16:16 | ECG_ITS ---
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 Measurements Intervals [place] Rate: 71 P: 61 MS: 138 QRS: 27 QRSD: 100 T: 112 QT: 419 QTc: 455 Interpretive Statements SINUS RHYTHM ST DEVIATION AND MODERATE T-WAVE ABNORMALITY, CONSIDER LATERAL ISCHEMIA [-0.1+ mV T-WAVE IN I/aVL/V5/V6] Compared to ECG 07/24/2024 14:08:27 T-wave abnormality now present Possible ischemia now present ST (T wave) deviation no longer present Prolonged QT interval no longer present Electronically Signed On 07-24-2024 22:58:24 CDT by Brayden Figueroa M.D. [id number]
--- NOTE | 2024-07-24 16:26 | USR_ITS ---
PROCEDURE INFORMATION: Exam: US Duplex Lower Extremity Veins, Bilateral Exam date and time: 07/24/2024 5:26 PM Age: 69 years old Clinical indication: Pain; Leg, lower; Bilateral; Prior surgery; Surgery date: 6+ months; Surgery type: RT ankle; Additional info: Bilateral calf pain TECHNIQUE: Imaging protocol: Real-time duplex ultrasound of the bilateral extremities with 2-D valencia scale, color Doppler flow and spectral waveform analysis including responses to compression and other maneuvers (when performed) with image documentation. Complete exam focused on the lower extremity veins. COMPARISON: CT kidney stone [id number] 07/24/2024 2:50 PM FINDINGS: Right deep veins: Unremarkable. The common femoral, femoral, proximal profunda femoral and popliteal veins are patent without thrombus. Normal Doppler waveforms. Normal compressibility and/or augmentation response. Left deep veins: Unremarkable. The common femoral, femoral, proximal profunda femoral and popliteal veins are patent without thrombus. Normal Doppler waveforms. Normal compressibility and/or augmentation response. Superficial veins: Greater saphenous veins at the saphenofemoral junctions are patent bilaterally without thrombus. Soft tissues: Unremarkable. US/[place] [id number] IMPRESSION: No evidence of deep vein thrombosis.
--- NOTE | 2024-07-24 16:27 | P.HP_ITS ---
Providers/Chief Complaint 2 Primary Care Provider: Rogelio Aldridge DO Chief Complaint: hypotension History of Present Illness Lolita Sellers is a 69 year old female with a past medical history of CAD status post stenting x 2, history of insulin-dependent type 2 diabetes mellitus, hypertension, hyperlipidemia, recent hospitalization for watershed stroke, history of prior CVAs, history of acute renal failure, history of chronic low back pain, insulin-dependent type 2 days mellitus who presents to due to syncopal episode. Currently patient alert oriented x 3, following all commands, she tells me that last night, after dinner she did not feel well, she felt nauseous, had fatigue, malaise, she did have episode of vomiting last night. She woke up this morning, due to complaints of decreased urination and feeling unwell she went to her primary care physician's office and was diagnosed with a UTI, antibiotics were ordered and she went to [facility] to pick it up. At [facility], she walked to the pharmacy, and was waiting for her meds when she sat down in a chair and thus the last thing she remembers, patient passed out, she does not remember the events well, denies any preceding lightheadedness, no dizziness, no nausea, no vomiting, no chest pain, no palpitations, no back pain, no strokelike symptoms, no facial droop, no slurring of her words, no seizure- like episode, she does tell me that recently her blood sugars have been running high Review of Systems 2 Const: Reports: fatigue and malaise; Denies: fever(s) Card: Denies: chest pain Resp: Denies: dyspnea GI: Reports: nausea; Denies: abdominal pain : Reports: difficulty voiding; Denies: flank pain or dysuria Musc: Denies: back pain Neuro: Denies: headache(s) Medications/Allergies Home Medications Medication Instructions Recorded Confirmed Last Taken Type montelukast 10 mg tablet 10 mg PO QAM 05/07/20 05/15/24 01/20/24 History (Singulair) omeprazole 40 mg capsule,delayed 40 mg PO QAM 05/07/20 05/15/24 01/20/24 History release budesonide-formoterol HFA 160 1 puff inhalation BID 01/20/24 05/15/24 Unknown History mcg-4.5 mcg/actuation aerosol inhaler (Symbicort) gabapentin 800 mg tablet 800 mg PO QID 01/20/24 05/15/24 01/20/24 History ropinirole 0.25 mg tablet 25 mg PO QPM 01/20/24 05/15/24 01/19/24 History rosuvastatin 40 mg tablet 40 mg PO QPM 01/20/24 05/15/24 01/19/24 History insulin aspart U-100 100 unit/mL See Rx Instructions .Route 02/07/24 05/15/24 07/01/22 14:00 Rx (3 mL) subcutaneous pen (Novolog .COMPLEX PRN Hyperglycemia #15 mL FlexPen U-100 Insulin aspart) insulin glargine 100 unit/mL 5 unit (0.05 mL) SUBCUT DAILY #10 02/07/24 05/15/24 01/20/24 Rx subcutaneous solution (Lantus mL U-100 Insulin) lisinopril 20 mg tablet 10 mg (1/2 x 20 mg) PO QAM 30 days 02/07/24 05/15/24 01/20/24 Rx #15 tabs clopidogrel 75 mg tablet mg PO 05/10/24 05/15/24 Unknown History insulin glargine 100 unit/mL (3 unit SUBCUT 05/10/24 05/15/24 Unknown History mL) subcutaneous pen (Lantus Solostar U-100 Insulin) metoprolol tartrate 25 mg tablet mg PO 05/10/24 05/15/24 Unknown History Allergies Allergy/AdvReac Type Severity Reaction Status Date / Time oak Allergy Mild ALGY-Nasal Verified 07/24/24 14:16 Discharge Penicillins Allergy ALGY-Rash Verified 07/24/24 14:16 PFSH Acute 2 PFSH: Medical History Degenerative joint disease of spine GERD (gastroesophageal reflux disease) Tobacco abuse Essential hypertension COPD (chronic obstructive pulmonary disease) Myocardial infarction ASHD (arteriosclerotic heart disease) Dyslipidemia Diabetes 1.5, managed as type 2 Surgical History History of hand surgery Joint replacements both hands Status post tubal ligation Status post ORIF of fracture of ankle S/P PTCA (percutaneous transluminal coronary angioplasty) Family History Father Lung cancer Mother Heart attack Sister Cancer COVID-19 Other CAD (coronary artery disease) Diabetes Social History Smoking and tobacco/nicotine status: current every day tobacco/nicotine user cigarettes Packs smoked per day: 0.5 Years cigarettes smoked: 50 Alcohol intake: current Alcohol intake frequency: holidays/special occasions only Substance/Drug Use: never Vitals/I&O/Wt Last Vital Signs Temp 98 F 07/24/24 14:06 Pulse 82 07/24/24 14:06 BP 73/43 07/24/24 14:06 Pulse Ox 95 07/24/24 14:06 O2 Del Method Room Air 07/24/24 14:06 Weight last 48 hrs Weight 67.132 kg Physical Exam 2 Const: COMMON NORMALS: no acute distress and patient oriented x3 HENMT: COMMON NORMALS: normocephalic HEAD & SCALP: normocephalic Eye: COMMON NORMALS: Equal, round and reactive pupils present Neck/C-Spine: COMMON NORMALS: no JVD Lymph: LYMPHATIC: no lymphadenopathy noted Resp: COMMON NORMALS: normal respiratory effort, No retractions, No use of accessory muscles and clear to auscultation bilaterally AUSCULTATION: clear to auscultation bilaterally Cardio: COMMON NORMALS: no JVD, regular rate, regular rhythm, S1 normal heart sound present and S2 normal heart sound present RATE: regular rate RHYTHM: regular rhythm HEART SOUNDS: S1 normal heart sound present and S2 normal heart sound present GI: COMMON NORMALS: Normal to inspection, nondistended, normoactive bowel sounds present, Soft to palpation and non-tender Extremity: COMMON NORMALS: no calf tenderness and no pedal edema Neuro: COMMON NORMALS: patient oriented x3, CN's II-XII intact bilaterally and moves all extremities Psych: COMMON NORMALS: mental status grossly normal Sepsis: Is patient septic: Yes Focused sepsis exam performed: Yes F ocused sepsis exam: DP PT pulses palpable, cap refill greater than 2 seconds, no significant mottling of bilateral extremities Date exam was performed: 07/24/24 Time exam was performed: 16:45 Data 07/24/24 14:10 07/24/24 14:10 Micro: Microbiology 07/24/24 14:47 Blood Culture - Preliminary Blood SPECIMEN COLLECTED 07/24/24 14:38 Blood Culture - Preliminary Blood SPECIMEN COLLECTED A&P Assessment and plan (1) Syncope: (2) Leukocytosis: (3) Elevated lactic acid level: (4) Urinary tract infection: (5) Shock: (6) Acute kidney injury: (7) Metabolic acidosis: (8) Sepsis: Plan Urinary tract infection, with sepsis, given elevated troponin, elevated lactic acid, CARLOS, evidence of shock ? Obtain UA ? Blood cultures next ? Status post Rocephin in the emergency room, broadening biotic coverage to vancomycin, and meropenem given patient's septic shock and sepsis Shock, septic -Sepsis from UTI, dehydration, metabolic acidosis -Status post fluid bolus in the emergency room -Blood pressure still soft 100 over 50s ? Monitor in the ICU closely -Will consider pressors based on clinical progress -Start midodrine 10 3 times daily Acute kidney injury ? Secondary to sepsis, dehydration ? Place Lundberg catheter -Monitor UA ? CPK Increased anion gap metabolic acidosis -Is likely sec to sepsis, septic shock -? Will give 1 amp of bicarb Leukocytosis ? Likely sec to UTI, sepsis, septic shock ? Monitor cultures Type 2 diabetes mellitus, ketones within normal limits ? Low-dose sliding scale NSTEMI ? Serial EKGs, serial troponins, telemetry monitoring ?continue aspirin, statin Hyponatremia Is likely secondary to dehydration Transaminitis History of CVA, history of watershed stroke -Maintain MAP greater than 65, avoid hypotension Complaints of bilateral calf pain ? Venous ultrasound Full code Lovenox for DVT prophylaxis Protonix for GI prophylaxis Attestations 2 Medical Necessity Statement*: Patient requires hospitalization, inpatient, greater than 2 midnights, for UTI, shock, metabolic acidosis, lactic acidosis, acute kidney injury Diagnoses Syncope R55 Leukocytosis D72.829 Elevated lactic acid level R79.89 Urinary tract infection N39.0 Shock R57.9 Acute kidney injury N17.9 Metabolic acidosis E87.20 Sepsis A41.9
[2024-07-24 16:28] LABS: Ketone (Acetest) Serum Negative (Negative)
[2024-07-24 16:38] LABS: Reflex Lactate Order REFLEX LACTIC ORDERD
[2024-07-24 16:43] LABS: Charge for UA Resulting for Rev
[2024-07-24 16:45] LABS: INR 1.07 (0.8-1.2)
[2024-07-24 16:46] LABS: Cortisol Random 50.61 ug/dL (2.47-19.5); Procalcitonin 0.68 ng/mL (0-0.5)
[2024-07-24 16:53] LABS: Bilirubin Urine Negative (Negative); Blood Urine 2+ (Negative); Glucose Urine UA Trace (Normal); Ketones Urine Negative (Negative); Leukocyte Esterase Urine 1+ (Negative); Nitrate Urine Negative (Negative); Protein Urine 1+ (Negative); Specific Gravity, Urine 1.005 (1.005-1.030); Urine Appearance Clear (CLEAR); Urine Color Yellow (Yellow); Urobilinogen Urine 0.2 mg/dL (Negative); pH Urine 5.5 (5-7)
[2024-07-24 16:57] LABS: C Reactive Protein 4.2 mg/L (0.0-4.9)
[2024-07-24 16:58] LABS: Bacteria Urine None Seen /hpf; Hyaline Casts Urine 7.01 /lpf; RBC Urine 0-2 /hpf (0-2); Squamous Epithelial Cell Urine 0-5 /hpf (0-5); WBC Urine 21-50 /hpf (0-5)
[2024-07-24 17:02] LABS: Creatine Phosphokinase 826 U/L (26-192)
[2024-07-24 17:31] LABS: Add Urine Culture? No
[2024-07-24 17:38] LABS: NT Pro B Type Natriuretic Pept 1855 pg/mL (0-125); Phosphorus 2.7 mg/dL (2.5-4.5)
[2024-07-24 18:58] LABS: Thyroid Stimulating Hormone 1.44 uIU/mL (0.27-4.20)
--- NOTE | 2024-07-24 19:01 | PHA.VACGOAL ---
Vancomycin Goal - Goal Vancomycin Goal:: 10-15 mg/L Vancomycin Indication:: Other (UTI, possible sepsis) - Therapy Current therapy:: Meropenem (500mg IVPB q12h) Day of therpy:: Day [1]of [] . Actual body weight (kg): 67.132 kg [place] body weight: 47.8 kg Dosing weight (kg): 67.132 kg - Data Labs: WBC 19.66 10^3/uL (3.29-11.43) H 07/24/24 14:10 RBC 4.69 10^6/uL (3.85-5.65) 07/24/24 14:10 Hgb 13.50 g/dL (11.27-16.99) 07/24/24 14:10 Hct 40.6 % (36-47) 07/24/24 14:10 MCV 86.6 fl (85-98) 07/24/24 14:10 MCH 28.8 pg (27-33) 07/24/24 14:10 MCHC 33.3 g/dL (30-55) 07/24/24 14:10 RDW 14.0 % (12.1-15.1) 07/24/24 14:10 Sodium 128 mmol/L (136-145) L 07/24/24 14:10 Potassium 4.2 mmol/L (3.5-5.1) 07/24/24 14:10 Chloride 91 mmol/L (98-107) L 07/24/24 14:10 Carbon Dioxide 15 mmol/L (22-29) L 07/24/24 14:10 Anion Gap 26.2 (5-19) H 07/24/24 14:10 BUN 50 mg/dL (8-23) H 07/24/24 14:10 Creatinine 3.1 mg/dL (0.5-0.9) H 07/24/24 14:10 GFR Calculation 14.9 mL/min (90-130) L 07/24/24 14:10 Last dialysis session:: N/A Drug administration history:: Medications Meropenem (Meropenem 500 Mg Sdv) 500 mg IVP Q12H KENDALL; Protocol Vancomycin HCl 1,000 mg/ (Sodium Chloride) 250 mls @ 250 mls/hr IV Q48H KENDALL Treatment plan:: new consult Regimen:: Vancomycin 1 gm IVPB Q48h Follow up:: SCr daily with AM labs Vancomycin trough before 4 th dose Adjust dosage with renal function Rationale:: Predicted trough 15.88
[2024-07-24] MEDS: meropenem 500 mg SDV IVP (19:05)
[2024-07-24] MEDS: sodium chloride 0.9% 1,000 ML 75 ML IV (19:06)
[2024-07-24] MEDS: pantoprazole 40 mg SDV IVP (19:06)
[2024-07-24] MEDS: ropinirole 0.25 mg Tablet PO (19:07)
[2024-07-24] MEDS: midodrine 5 mg TABLET 10 MG PO (19:07)
[2024-07-24] MEDS: enoxaparin 40 mg/0.4 mL Syringe SUBCUT (19:07)
[2024-07-24] MEDS: sodium bicarbonate 8.4% 1 mEq/mL 50mL Syr 50 MEQ IVP (19:45)
[2024-07-24] MEDS: vancomycin 1,000 MG in sodium chloride 0.9% 250 ML 250 MG IV (19:46)
[2024-07-24 19:51] LABS: Estmated Average Glucose 321; Hemoglobin A1C 12.8 % (4.0-6.0)
--- NOTE | 2024-07-24 20:08 | ECG_ITS ---
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 Measurements Intervals [place] Rate: 83 P: 0 NE: 0 QRS: 51 QRSD: 94 T: 114 QT: 384 QTc: 452 Interpretive Statements SINUS RHYTHM NONSPECIFIC ST & T-WAVE ABNORMALITY Compared to ECG 07/24/2024 16:16:13 Possible ischemia no longer present T-wave abnormality still present Electronically Signed On 07-25-2024 8:27:56 CDT by Moose Jean-Baptiste M.D. [email or web address] rehabilitation hospitalCultivate [id number]
[2024-07-24 21:14] LABS: Troponin 5 6HR 25.47 ng/L (0-10)
[2024-07-24 21:20] LABS: Troponin 5 6HR Delta -10.53 ng/L (0-12)
--- NOTE | 2024-07-24 23:39 | PC.NURSE ---
Pt has had multiple low blood pressures with map in the 50s. Notified Dr Plummer. Gave order for 500 ml NS bolus.
[2024-07-24] MEDS: sodium chloride 0.9% 500 ML 999 ML IV (23:50)
[2024-07-25] VITALS (35 sets, daily range): BP systolic 95–156; BP diastolic 46–107; PULSE 69–102; RESP 15–21; TEMP 36.4–37.1; O2SAT 90–97; BMI 31.8
[2024-07-25] MEDS: midodrine 5 mg TABLET 10 MG PO (02:00)
[2024-07-25 04:12] LABS: Basophils # 0.1 10^3/uL (0.0-0.1); Basophils % 0.8 %; Eosinophils # 0.2 10^3/uL (0.0-0.8); Eosinophils % 1.4 %; Hematocrit 32.4 % (36-47); Lymphocytes # 3.9 10^3/uL (0.8-4.8); Lymphocytes % 33.1 %; Mean Corpuscular HGB Conc 32.4 g/dL (30-55); Mean Corpuscular Hemoglobin 28.8 pg (27-33); Mean Platelet Volume 12.9 fL (7.4-10.4); Monocytes # 0.7 10^3/uL (0.2-0.9); Monocytes % 5.7 %; Neutrophils # 6.86 10^3/uL (1.8-7.7); Neutrophils % 58.7 %; Nucleated Red Blood Cells % 0 %; Platelet Count 149 10^3/cmm (157-399); Red Blood Count 3.64 10^6/uL (3.85-5.65); Red Cell Distribution Width 14.2 % (12.1-15.1); White Blood Count 11.67 10^3/uL (3.29-11.43)
[2024-07-25 04:35] LABS: Anion Gap 14.1 (5-19); Blood Urea Nitrogen 36 mg/dL (8-23); Calcium 7.6 mg/dL (8.5-10.5); Carbon Dioxide 18 mmol/L (22-29); Chloride 107 mmol/L (98-107); Creatinine Clr Calc Pharmacy 23.4557; Glomerular Filtration Rate 24.7 mL/min (90-130); Glucose 288 mg/dL (65-115); Osmolality Calculated 299 mOsm/kg (285-295); Potassium 4.1 mmol/L (3.5-5.1); Sodium 135 mmol/L (136-145)
[2024-07-25] MEDS: meropenem 500 mg SDV IVP ×2 (05:45→18:07)
[2024-07-25 06:35] LABS: Glucose Point of Care 273 mg/dL (70-110)
--- NOTE | 2024-07-25 08:13 | PC.PHAR ---
Addendum entered by Alondra Dela Cruz 07/25/24 09:30: Per [facility] Humalog kwik pen has replaced the Novolog due to insurance requirements. Pt recently picked up Novolog but should not be taking it and Humalog fast acting insulin. Original Note: Will follow up with [facility] when they open at 9am-question on insulin-Novolog replaces Humalog?
[2024-07-25] MEDS: sodium chloride 0.9% 1,000 ML 75 ML IV ×2 (09:06→20:21)
[2024-07-25] MEDS: aspirin 81 mg EC Tablet PO (09:07)
[2024-07-25] MEDS: clopidogrel 75 mg Tablet PO (09:07)
[2024-07-25 11:29] LABS: Glucose Point of Care 438 mg/dL (70-110)
[2024-07-25] MEDS: insulin lispro 100 unit/1 mL SUBCUT ×2 (11:43→18:59)
--- NOTE | 2024-07-25 12:18 | PC.NURSE ---
Report caled to Limk. Report given to Paige
--- NOTE | 2024-07-25 12:40 | PC.NURSE ---
Pt transferred to room 277-1 via W/C. Her packed up her belongings, they went to [facility] with pt.
--- NOTE | 2024-07-25 15:24 | PM.PN ---
Subjective Subjective: Patient was seen this morning, she denies any fevers, chills, no nausea, no vomiting, no lightheadedness, no dizziness, denies any recurrent syncopal episodes, no flank pain Vitals/I&O/Wt Last Vital Signs Temp 97.5 F L 07/25/24 13:07 Pulse 86 07/25/24 13:07 Resp 18 07/25/24 13:07 BP 145/72 07/25/24 13:07 Pulse Ox 97 07/25/24 13:07 O2 Del Method Room Air 07/25/24 13:07 07/25/24 07/25/24 07/25/24 06:59 14:59 22:59 Intake Total 500 / 4683.96 1400 / 1400 Output Total 2100 / 2100 1825 / 1825 Balance -1600 / 2583.96 -425 / -425 Weight last 48 hrs Weight 74.09 kg Weight 71.668 kg Weight 67.132 kg Physical Exam Const: COMMON NORMALS: no acute distress and patient oriented x3 Resp: COMMON NORMALS: normal respiratory effort, No retractions, No use of accessory muscles and clear to auscultation bilaterally AUSCULTATION: clear to auscultation bilaterally Cardio: COMMON NORMALS: regular rate, regular rhythm, S1 normal heart sound present and S2 normal heart sound present RATE: regular rate RHYTHM: regular rhythm HEART SOUNDS: S1 normal heart sound present and S2 normal heart sound present GI: COMMON NORMALS: Normal to inspection, nondistended, normoactive bowel sounds present and non-tender Extremity: COMMON NORMALS: no pedal edema Neuro: COMMON NORMALS: patient oriented x3 Psych: COMMON NORMALS: mental status grossly normal Urinary Catheter Management: Lundberg: Cath Placed During This Visit: yes, but has since been removed by the nurse Reason for Continuing Indwelling Catheter: Accurate Measurement of Urinary Output in Critically Ill Patients Urinary Catheter Date of Insertion: 07/24/24 Date Urinary Catheter Removed: 07/25/24 Time Urinary Catheter Discontinued: 13:20 Data 07/25/24 03:05 07/25/24 03:05 Micro: Microbiology 07/24/24 14:38 Blood Culture - Preliminary Blood NEGATIVE TO DATE 07/24/24 14:47 Blood Culture - Preliminary Blood NEGATIVE TO DATE A&P Assessment and plan (1) Syncope: (2) Leukocytosis: (3) Elevated lactic acid level: (4) Urinary tract infection: (5) Shock: (6) Acute kidney injury: (7) Metabolic acidosis: (8) Sepsis: Plan Urinary tract infection, with sepsis, given elevated troponin, elevated lactic acid, CARLOS, evidence of shock ? Obtain UA ? Blood cultures next ? Status post Rocephin in the emergency room, broadening coverage to vancomycin, and meropenem given patient's septic shock and sepsis Shock, septic, resolved -Sepsis from UTI, dehydration, metabolic acidosis -Status post fluid bolus in the emergency room -Blood pressure still soft 100 over 50s ? Moved to [facility] Acute kidney injury, improving ? Secondary to sepsis, dehydration ? Place Lundberg catheter -Monitor UA ? CPK Increased anion gap metabolic acidosis, improving -Is likely sec to sepsis, septic shock -? Will give 1 amp of bicarb Leukocytosis ? Likely sec to UTI, sepsis, septic shock ? Monitor cultures Type 2 diabetes mellitus, ketones within normal limits ? Low-dose sliding scale NSTEMI ? Serial EKGs, serial troponins, telemetry monitoring ?continue aspirin, statin Hyponatremia Is likely secondary to dehydration Transaminitis History of CVA, history of watershed stroke -Maintain MAP greater than 65, avoid hypotension Complaints of bilateral calf pain ? Venous ultrasound Full code Lovenox for DVT prophylaxis Protonix for GI prophylaxis Patient reports that she uses 80 units of Lantus at bedtime, given her poor appetite will reduce to 20 units, moderate dose sliding scale for type 2 diabetes, continue IV antibiotics moved to [facility] Attestations Medical Necessity Statement*: Patient requires hospitalization for UTI, CARLOS, Diagnoses Syncope R55 Leukocytosis D72.829 Elevated lactic acid level R79.89 Urinary tract infection N39.0 Shock R57.9 Acute kidney injury N17.9 Metabolic acidosis E87.20 Sepsis A41.9
[2024-07-25] MEDS: atorvastatin 40 mg Tablet 80 MG PO (18:06)
[2024-07-25] MEDS: pantoprazole 40 mg SDV IVP (18:06)
[2024-07-25] MEDS: ropinirole 0.25 mg Tablet PO (18:06)
[2024-07-25 18:36] LABS: Glucose Point of Care 331 mg/dL (70-110)
[2024-07-25] MEDS: enoxaparin 30 mg/0.3 mL Syringe SUBCUT (18:37)
[2024-07-25 20:14] LABS: Glucose Point of Care 284 mg/dL (70-110)
[2024-07-25] MEDS: insulin glargine 100 units/1 mL 20 UNIT SUBCUT (20:39)
[2024-07-25] MEDS: acetaminophen 325 mg Tablet 650 MG PO (23:43)
[2024-07-26] VITALS: BP 180/61; PULSE 85; RESP 17; TEMP 37; O2SAT 96
[2024-07-26] MEDS: HYDROcodone-acetaminophen 7.5-325 mg Tablet 1 TAB PO (03:51)
[2024-07-26 04:00] VITALS: BP 175/72; PULSE 84; RESP 18; TEMP 36.7; O2SAT 96
[2024-07-26 04:50] LABS: Basophils # 0.1 10^3/uL (0.0-0.1); Eosinophils # 0.3 10^3/uL (0.0-0.8); Eosinophils % 3.9 %; Hematocrit 33.3 % (36-47); Lymphocytes % 38.5 %; Mean Corpuscular Hemoglobin 29.5 pg (27-33); Mean Corpuscular Volume 89.3 fl (85-98); Monocytes # 0.4 10^3/uL (0.2-0.9); Monocytes % 5.6 %; Neutrophils % 50.5 %; Nucleated Red Blood Cells % 0 %; Platelet Count 126 10^3/cmm (157-399); Red Blood Count 3.73 10^6/uL (3.85-5.65); Red Cell Distribution Width 14.3 % (12.1-15.1); White Blood Count 7.72 10^3/uL (3.29-11.43)
[2024-07-26 05:08] LABS: Anion Gap 14.6 (5-19); Blood Urea Nitrogen 17 mg/dL (8-23); Calcium 8.2 mg/dL (8.5-10.5); Carbon Dioxide 18 mmol/L (22-29); Chloride 107 mmol/L (98-107); Creatinine Clr Calc Pharmacy 39.7695; Glomerular Filtration Rate 44.5 mL/min (90-130); Glucose 199 mg/dL (65-115); Osmolality Calculated 289 mOsm/kg (285-295); Potassium 3.6 mmol/L (3.5-5.1); Sodium 136 mmol/L (136-145)
[2024-07-26 06:36] LABS: Glucose Point of Care 263 mg/dL (70-110)
--- NOTE | 2024-07-26 06:59 | PC.NURSE ---
pt lost IV access and was refusing to let nurse start new IV, after much talk and education she allowed one try to which the attempt failed. She wishes to speak to doctor before any IV is placed or any other meds given. She insist that she is going home this morning.
--- NOTE | 2024-07-26 07:11 | PC.NURSE ---
With rounding, noted pt had removed telemetry and it was lying in the bed. I asked if it had fallen off; she said she had taken it off, taken everything out (SCDs were on the floor), had taken out her IV and was ready to go home. She said she does not want another IV placed.
[2024-07-26 07:20] VITALS: BP 163/74; PULSE 77; RESP 15; TEMP 36.8; O2SAT 97
[2024-07-26] MEDS: insulin lispro 100 unit/1 mL SUBCUT (07:57)
[2024-07-26 08:00] VITALS: RESP 18
[2024-07-26] MEDS: aspirin 81 mg EC Tablet PO (08:00)
[2024-07-26] MEDS: clopidogrel 75 mg Tablet PO (08:00)
[2024-07-26] MEDS: ciprofloxacin 500 mg Tablet PO (09:18)
--- NOTE | 2024-07-26 09:43 | P.DS_ITS ---
Discharge Providers Date of Admission: 07/24/24 17:24 Date of Discharge: July 26, 2024 Attending Provider at Admission: Raheel Child MD Attending Provider at Discharge: Raheel Child MD Primary Care Provider: Rogelio Aldridge DO Diagnoses at Discharge Discharge Diagnosis (1) Syncope: Status: Acute (2) Leukocytosis: Status: Acute (3) Elevated lactic acid level: Status: Acute (4) Urinary tract infection: Status: Acute (5) Shock: Status: Acute (6) Acute kidney injury: Status: Resolved (7) Metabolic acidosis: Status: Acute (8) Sepsis: Status: Acute Reason for Visit Reason for Visit: hypotension Hospital Course Hospital Course Lolita Sellers is a 69 year old female with a past medical history of CAD status post stenting x 2, history of insulin-dependent type 2 diabetes mellitus, hypertension, hyperlipidemia, recent hospitalization for watershed stroke, history of prior CVAs, history of acute renal failure, history of chronic low back pain, insulin-dependent type 2 days mellitus who presents to due to syncopal episode. Currently patient alert oriented x 3, following all commands, she tells me that last night, after dinner she did not feel well, she felt nauseous, had fatigue, malaise, she did have episode of vomiting last night. She woke up this morning, due to complaints of decreased urination and feeling unwell she went to her primary care physician's office and was diagnosed with a UTI, antibiotics were ordered and she went to [facility] to pick it up. At [facility], she walked to the pharmacy, and was waiting for her meds when she sat down in a chair and thus the last thing she remembers, patient passed out, she does not remember the events well, denies any preceding lightheadedness, no dizziness, no nausea, no vomiting, no chest pain, no palpitations, no back pain, no strokelike symptoms, no facial droop, no slurring of her words, no seizure- like episode, she does tell me that recently her blood sugars have been running high Patient was evaluated [facility] for UTI, with sepsis, required ICU admission due to low blood pressures, required IV fluids, broad-spectrum antibiotic therapy, overall clinically improved. On day of discharge 07/26/2024, patient will refuse further IVs, discussed morbidity and mortality associated, she really wants to go home, I discussed morbidity and mortality associated with leaving the hospital prematurely, she is adamant about going home, will discharge her on 5 days of ciprofloxacin For acute kidney injury, increased anion gap metabolic acidosis, received IV fluids, likely secondary to sepsis, septic shock, overall resolved Syncopal episode, likely secondary to UTI, sepsis, low blood pressure, shock, improved with fluids, no recurrent episodes of syncope, no lightheadedness, no dizziness, discharged with close follow-up primary care provider as outpatient Hyponatremia likely due to dehydration, resolved Type 2 diabetes mellitus, Lantus dose was decreased to 20 at bedtime, low-dose sliding scale, follow-up with primary care provider as outpatient History of CVA no focal neurologic findings on examination, and throughout her hospitalization, discharged on aspirin, statin, Plavix, if any strokelike symptoms please call [phone] 11 Physical Exam Const: COMMON NORMALS: no acute distress and patient oriented x3 Resp: COMMON NORMALS: normal respiratory effort, No retractions, No use of accessory muscles and clear to auscultation bilaterally AUSCULTATION: clear to auscultation bilaterally Cardio: COMMON NORMALS: regular rate, regular rhythm, S1 normal heart sound present and S2 normal heart sound present RATE: regular rate RHYTHM: regular rhythm HEART SOUNDS: S1 normal heart sound present and S2 normal heart sound present GI: COMMON NORMALS: Normal to inspection, nondistended, normoactive bowel sounds present and non-tender Extremity: COMMON NORMALS: no pedal edema Neuro: COMMON NORMALS: patient oriented x3 Psych: COMMON NORMALS: mental status grossly normal Urinary Catheter Management: Lundberg: Cath Placed During This Visit: yes, but has since been removed by the nurse Reason for Continuing Indwelling Catheter: Accurate Measurement of Urinary Output in Critically Ill Patients Urinary Catheter Date of Insertion: 07/24/24 Date Urinary Catheter Removed: 07/25/24 Time Urinary Catheter Discontinued: 13:20 Discharge Data Studies Completed and Pending Completed Studies During Hospitalization Category Date Time Status CT kidney stone [id number] Stat Cat Scan 07/24/24 14:45 Completed XR chest 1V portable [id number] Stat Exams 07/24/24 14:08 [place] [id number] Stat Ultrasound 07/24/24 16:26 Completed Pending at discharge Category Date Time Status Basic Metabolic Panel AM LABS Lab 07/27/24 04:00 Ordered Blood Culture Stat Lab 07/24/24 14:47 Results Complete Blood Count w/Auto AM LABS Lab 07/27/24 04:00 Ordered Urine Culture Stat Lab 07/24/24 16:36 Received Radiology Impressions Chest X-Ray 07/24/24 14:08 IMPRESSION: 1. No acute cardiopulmonary finding. Abdomen/Pelvis CT 07/24/24 14:45 IMPRESSION: 1. No acute abdominal or pelvic abnormalities. 2. No renal obstruction or perinephric stranding. 3. Mild hepatic steatosis and hepatomegaly. 4. No GI tract obstruction. Normal appendix. Venous Duplex 07/24/24 16:26 IMPRESSION: No evidence of deep vein thrombosis. Laboratory Results WBC 7.72 10^3/uL (3.29-11.43) 07/26/24 04:33 RBC 3.73 10^6/uL (3.85-5.65) L 07/26/24 04:33 Hgb 11.00 g/dL (11.27-16.99) L 07/26/24 04:33 Hct 33.3 % (36-47) L 07/26/24 04:33 MCV 89.3 fl (85-98) 07/26/24 04:33 MCH 29.5 pg (27-33) 07/26/24 04:33 MCHC 33.0 g/dL (30-55) 07/26/24 04:33 RDW 14.3 % (12.1-15.1) 07/26/24 04:33 Plt Count 126 10^3/cmm (157-399) L 07/26/24 04:33 MPV 12.0 fL (7.4-10.4) H 07/26/24 04:33 Neut % (Auto) 50.5 % 07/26/24 04:33 Lymph % (Auto) 38.5 % 07/26/24 04:33 [place] % (Auto) 5.6 % 07/26/24 04:33 Eos % (Auto) 3.9 % 07/26/24 04:33 Baso % (Auto) 1.0 % 07/26/24 04:33 Neut # (Auto) 3.90 10^3/uL (1.8-7.7) 07/26/24 04:33 Lymph # (Auto) 3.0 10^3/uL (0.8-4.8) 07/26/24 04:33 [place] # (Auto) 0.4 10^3/uL (0.2-0.9) 07/26/24 04:33 Eos # (Auto) 0.3 10^3/uL (0.0-0.8) 07/26/24 04:33 Baso # (Auto) 0.1 10^3/uL (0.0-0.1) 07/26/24 04:33 Nucleated RBC % (auto) 0 % 07/26/24 04:33 Total Counted 100 (0-100) 07/24/24 14:10 Atypical Lymphs % 14.0 % (0-5) H 07/24/24 14:10 Absolute Neutrophils 13.2 10^3/cmm (1.4-6.5) H 07/24/24 14:10 Segmented Neutrophils 67 % 07/24/24 14:10 Abs Segm Neuts (Man) 13.2 10/cmm (1.6-7.1) H 07/24/24 14:10 Band Neutrophils 0.0 % 07/24/24 14:10 Abs Band Neuts (Man) 0.0 10^3/cmm (0.0-1.2) 07/24/24 14:10 Absolute Lymphocytes 6.5 10^3/cmm (1.2-3.4) H 07/24/24 14:10 Lymphocytes (Manual) 19 % 07/24/24 14:10 Monocytes (Manual) 0.0 % 07/24/24 14:10 Absolute Monocytes 0.0 10^3/cmm (0.1-0.6) L 07/24/24 14:10 Eosinophils (Manual) 0 % 07/24/24 14:10 Absolute Eosinophils 0.0 10^3/cmm (0.0-0.7) 07/24/24 14:10 Basophils (Manual) 0.0 % 07/24/24 14:10 Absolute Basophils 0.0 10^3/cmm (0.0-0.2) 07/24/24 14:10 Nucleated RBCs # 0.0 /100WBC 07/26/24 04:33 Platelet Estimate Normal (Normal) 07/24/24 14:10 ESR 27 mm/hr (0-15) H 07/24/24 14:10 PT 14.20 SECONDS (12.1-14.9) 07/24/24 14:10 INR 1.07 (0.8-1.2) 07/24/24 14:10 Sodium 136 mmol/L (136-145) 07/26/24 04:33 Potassium 3.6 mmol/L (3.5-5.1) 07/26/24 04:33 Chloride 107 mmol/L (98-107) 07/26/24 04:33 Carbon Dioxide 18 mmol/L (22-29) L 07/26/24 04:33 Anion Gap 14.6 (5-19) 07/26/24 04:33 BUN 17 mg/dL (8-23) 07/26/24 04:33 Creatinine 1.2 mg/dL (0.5-0.9) H 07/26/24 04:33 GFR Calculation 44.5 mL/min (90-130) L 07/26/24 04:33 Glucose 199 mg/dL (65-115) H 07/26/24 04:33 POC Glucose 263 mg/dL (70-110) H 07/26/24 06:31 Estimat Average Glucose 321 07/24/24 14:10 Hemoglobin A1c 12.8 % (4.0-6.0) H 07/24/24 14:10 Calculated Osmolality 289 mOsm/kg (285-295) 07/26/24 04:33 Lactic Acid 3.8 mmol/L (0.5-2.2) H 07/24/24 14:38 Lactic Acid (Sepsis) 2.0 mmol/L (0.5-2.2) 07/24/24 18:30 Calcium 8.2 mg/dL (8.5-10.5) L 07/26/24 04:33 Phosphorus 2.7 mg/dL (2.5-4.5) 07/24/24 14:10 Magnesium 3.0 mg/dL (1.7-2.3) H 07/24/24 14:10 Total Bilirubin 0.4 mg/dL (0.15-1.2) 07/24/24 14:10 AST 61 U/L (0-32) H 07/24/24 14:10 ALT 41 U/L (0-33) H 07/24/24 14:10 Alkaline Phosphatase 120 U/L (35-105) H 07/24/24 14:10 Creatine Kinase 826 U/L (26-192) H* 07/24/24 14:10 Troponin T Baseline 36 ng/L (0-10) H 07/24/24 14:10 Troponin T 120 Minute 27.70 ng/L (0-10) H 07/24/24 16:12 Delta Troponin T -8.30 ABS# (0-10) L 07/24/24 16:12 Troponin T Hi Sens 6Hr 25.47 ng/L (0-10) H 07/24/24 20:50 Troponin T Hi Sens 6Hr Delta -10.53 ng/L (0-12) L 07/24/24 20:50 C-Reactive Protein 4.2 mg/L (0.0-4.9) 07/24/24 14:10 NT-Pro-B Natriuret Pep 1855 pg/mL (0-125) H 07/24/24 14:10 Total Protein 7.6 g/dL (6.6-8.7) 07/24/24 14:10 Albumin 4.6 g/dL (3.5-5.2) 07/24/24 14:10 Globulin 3.0 g/dL (1.3-4.6) 07/24/24 14:10 Procalcitonin 0.68 ng/mL (0-0.5) H 07/24/24 14:10 TSH 1.44 uIU/mL (0.27-4.20) 07/24/24 14:10 Random Cortisol 50.61 ug/dL (2.47-19.5) H 07/24/24 14:10 Urine Color Yellow (Yellow) 07/24/24 16:36 Urine Appearance Clear (CLEAR) 07/24/24 16:36 Urine pH 5.5 (5-7) 07/24/24 16:36 Ur Specific [place] 1.005 (1.005-1.030) 07/24/24 16:36 Urine Protein 1+ (Negative) A 07/24/24 16:36 Urine Glucose (UA) Trace (Normal) H 07/24/24 16:36 Urine Ketones Negative (Negative) 07/24/24 16:36 Urine Blood 2+ (Negative) A 07/24/24 16:36 Urine Nitrate Negative (Negative) 07/24/24 16:36 Urine Bilirubin Negative (Negative) 07/24/24 16:36 Urine Urobilinogen 0.2 mg/dL (Negative) 07/24/24 16:36 Ur Leukocyte Esterase 1+ (Negative) A 07/24/24 16:36 Urine RBC 0-2 /hpf (0-2) 07/24/24 16:36 Urine WBC 21-50 /hpf (0-5) H 07/24/24 16:36 Ur Squamous Epith Cells 0-5 /hpf (0-5) 07/24/24 16:36 Amorphous Sediment Not Reportable 07/24/24 16:36 Urine Bacteria None seen /hpf (NONE) 07/24/24 16:36 Hyaline Casts 7.01 /lpf 07/24/24 16:36 Serum Ketones Negative (Negative) 07/24/24 14:10 Vitals Last Vital Signs Temp 98.3 F 07/26/24 07:20 Pulse 77 07/26/24 07:20 Resp 18 07/26/24 08:00 BP 163/74 07/26/24 07:20 Pulse Ox 97 07/26/24 07:20 O2 Del Method Room Air 07/26/24 07:20 Discharge Plan Discharge Patient Disposition: Home Condition: Stable Prescriptions: New ciprofloxacin HCl 500 mg Tablet 500 mg PO BID@0900,2100 5 Days Qty: 10 0RF aspirin 81 mg Tablet,Delayed Release (Dr/Ec) 81 mg PO DAILY 30 Days Qty: 30 0RF Continued omeprazole 40 mg capsule,delayed release(DR/EC) 40 mg PO QAM montelukast [Singulair] 10 mg tablet 10 mg PO QAM metoprolol tartrate 25 mg tablet 25 mg PO BID clopidogrel 75 mg tablet 75 mg PO DAILY gabapentin 800 mg tablet 800 mg PO QID ropinirole 0.25 mg tablet 25 mg PO QPM rosuvastatin 40 mg tablet 40 mg PO QPM budesonide-formoterol [Symbicort] 160-4.5 mcg/actuation HFA aerosol inhaler 1 puff INHALATION BID lisinopril 20 mg tablet 10 mg PO QAM 30 Days Qty: 15 0RF insulin aspart U-100 [Novolog FlexPen U-100 Insulin] 100 unit/mL (3 mL) insulin pen See Rx Instructions .ROUTE .COMPLEX PRN (Reason: Hyperglycemia) Qty: 15 0RF Rx Instructions: Inject, subcut, 3 times daily, after meals, based on sliding scale provided. tramadol 50 mg tablet 50 mg PO Q6H PRN (Reason: Pain, Mild) hydrocodone-acetaminophen 7.5-325 mg tablet 1 tab PO Q4H PRN (Reason: Pain) Changed Lantus Solostar U-100 Insulin 100 unit/mL (3 mL) insulin pen 20 unit SUBCUT BEDTIME Qty: 15 0RF Discontinued cephalexin 500 mg capsule 500 mg PO TID insulin lispro [Humalog KwikPen Insulin] 100 unit/mL insulin pen See Rx Instructions .ROUTE .COMPLEX Rx Instructions: INJECT SUBCUTANEOUSLY DIRECTED THREE TIMES DAILY PER SLIDING SCALE 90-100 UNITS DAILY Discharge Orders: Discharge Order (Routine); Ordered 07/26/24 Ordered By: Raheel Child Referrals: Jenny Quinonez FNP [Staff Physician] - 08/01/24 11:00 am Moose Jean-Baptiste M.D [Physician] - 08/21/24 1:30 pm () Jermaine Joel MD [Referring] - 1 week (We have notified your physician's clinic of the need for a follow-up appointment to be scheduled. If you have not heard from them within the next 2 business days, please call them directly. ) Discharge Diet: Cardiac Discharge Activity: Resume usual activity Patient Instructions: Ciprofloxacin (By mouth) (Cipro), Aspirin (By mouth), Heart Attack (GEN), Acute Kidney Injury (GEN), Urinary Tract Infection in Women (GEN), Opioid Safety Activity Restrictions/Additional Instructions: - Take antibiotics for UTI ? For your recurrent UTIs please follow-up with urology ? Please monitor your blood sugars closely decrease Lantus to 20 units at bedtime ? If you have recurrent syncopal episodes please come back to the emergency room ? Please follow-up cardiology in 1 month Discharge Attestations Time Spent in Discharge Care*: greater than 30 min Quality Metrics Clinical Quality Measures [ No reported AMI, CVA or VTE this stay] Coding Level of Care Code 91093 Total time (in minutes) for Discharge: 45 Diagnoses Syncope R55 Leukocytosis D72.829 Elevated lactic acid level R79.89 Urinary tract infection N39.0 Shock R57.9 Acute kidney injury N17.9 Metabolic acidosis E87.20 Sepsis A41.9
[2024-07-26 10:58] VITALS: BP 163/74; PULSE 77; RESP 18; TEMP 36.8; O2SAT 97
== END 2024-07-26 10:55 | disposition home or self-care (01) | DRG 871 ==
LOC: ER 14:16 → ICU 17:25 → MEDSURG 07-25 12:28
PROVIDERS: Admitting Provider Family Medicine; Emergency Provider Family Medicine; PCP Internal Medicine; Visit Provider Family Medicine
DX: A41.9 Sepsis, unspecified organism (principal); R65.21 Severe sepsis with septic shock; N17.9 Acute kidney failure, unspecified; N39.0 Urinary tract infection, site not specified; M62.82 Rhabdomyolysis; E87.20 Acidosis, unspecified; E87.1 Hypo-osmolality and hyponatremia; E86.0 Dehydration; M25.562 Pain in left knee; M25.561 Pain in right knee; G89.29 Other chronic pain; M54.50 Low back pain, unspecified; Z86.73 Personal history of transient ischemic attack (TIA), and cerebral infarction without residual deficits; F17.210 Nicotine dependence, cigarettes, uncomplicated; E78.5 Hyperlipidemia, unspecified; I25.2 Old myocardial infarction; J44.9 Chronic obstructive pulmonary disease, unspecified; I10 Essential (primary) hypertension; I25.10 Atherosclerotic heart disease of native coronary artery without angina pectoris; Z95.5 Presence of coronary angioplasty implant and graft; E11.9 Type 2 diabetes mellitus without complications; Z79.4 Long term (current) use of insulin; M47.9 Spondylosis, unspecified
CPT/HCPCS: 36415; 36416; 71045; 74176; 80048; 80053; 81003; 81015; 82009; 82533; 82550; 82962; 83036; 83605; 83735; 83880; 84100; 84145; 84443; 84484; 85007; 85025; 85610; 85651; 86140; 87040; 87086; 93005; 93970; 94664; 96361; 96372; 96374; 96376; 99285; J0696; J1650; J1815; J2185; J2470; J3370; J7030; J7040; J7050

== ENCOUNTER → 2024-08-18 09:28 | Outpatient (BNVA) | payer MEDICARE, OTHER, SELFPAY | PROVIDERS: PCP Internal Medicine; Visit Provider Internal Medicine | DX: E78.5 Hyperlipidemia, unspecified; I25.10 Atherosclerotic heart disease of native coronary artery without angina pectoris; E78.2 Mixed hyperlipidemia; E11.22 Type 2 diabetes mellitus with diabetic chronic kidney disease; N18.30 Chronic kidney disease, stage 3 unspecified; Z79.4 Long term (current) use of insulin; Z79.84 Long term (current) use of oral hypoglycemic drugs | CPT/HCPCS: 99204 ==

== ENCOUNTER → 2024-08-21 13:11 | Outpatient (BNVA) | payer MEDICARE, OTHER, SELFPAY | PROVIDERS: PCP Internal Medicine; Visit Provider Nurse Practitioner Family | DX: I25.10 Atherosclerotic heart disease of native coronary artery without angina pectoris (principal); I10 Essential (primary) hypertension; I25.2 Old myocardial infarction; Z98.61 Coronary angioplasty status | CPT/HCPCS: 99213 ==

== ENCOUNTER 2024-09-19 14:01 | Oncology outpatient (recurring) (ONCR) | payer MEDICARE, OTHER, SELFPAY ==
[2024-09-19 14:14] LABS: Basophils # 0.2 10^3/uL (0.0-0.1); Basophils % 1.3 %; Eosinophils # 0.4 10^3/uL (0.0-0.8); Eosinophils % 3.3 %; Hematocrit 42.3 % (36-47); Lymphocytes # 3.8 10^3/uL (0.8-4.8); Lymphocytes % 33.6 %; Mean Corpuscular HGB Conc 32.2 g/dL (30-55); Mean Corpuscular Hemoglobin 28.3 pg (27-33); Mean Corpuscular Volume 87.9 fl (85-98); Monocytes # 0.6 10^3/uL (0.2-0.9); Monocytes % 5.4 %; Neutrophils # 6.38 10^3/uL (1.8-7.7); Neutrophils % 56.1 %; Nucleated Red Blood Cells % 0 %; Platelet Count 211 10^3/cmm (157-399); Red Blood Count 4.81 10^6/uL (3.85-5.65); Red Cell Distribution Width 15.5 % (12.1-15.1); White Blood Count 11.39 10^3/uL (3.29-11.43)
[2024-09-19 14:19] LABS: Erythrocyte Sedimentation Rate 8 mm/hr (0-15)
[2024-09-19 15:32] LABS: Alanine Aminotransferase 48 U/L (0-33); Albumin Level 4.6 g/dL (3.5-5.2); Alkaline Phosphatase 80 U/L (35-105); Anion Gap 17.1 (5-19); Aspartate Amino Transferase 58 U/L (0-32); Blood Urea Nitrogen 13 mg/dL (8-23); Calcium 9.7 mg/dL (8.5-10.5); Carbon Dioxide 24 mmol/L (22-29); Chloride 104 mmol/L (98-107); Creatinine Clr Calc Pharmacy 41.1258; Globulin 3.1 g/dL (1.3-4.6); Glomerular Filtration Rate 49.2 mL/min (90-130); Glucose 156 mg/dL (65-115); Osmolality Calculated 295 mOsm/kg (285-295); Potassium 4.1 mmol/L (3.5-5.1); Sodium 141 mmol/L (136-145); Total Bilirubin 0.4 mg/dL (0.15-1.2); Total Protein 7.7 g/dL (6.6-8.7)
== END 2024-09-28 23:59 | disposition home or self-care (01) ==
PROVIDERS: PCP Internal Medicine; Visit Provider Internal Medicine Medical Oncology
DX: D72.823 Leukemoid reaction (principal); D72.829 Elevated white blood cell count, unspecified
CPT/HCPCS: 36415; 80053; 85025; 85651; 86140; 99214

== ENCOUNTER → 2025-02-22 07:51 | Outpatient (BNVA) | payer MEDICARE, OTHER, SELFPAY | PROVIDERS: PCP Internal Medicine; Visit Provider Internal Medicine | DX: E11.9 Type 2 diabetes mellitus without complications (principal); I25.10 Atherosclerotic heart disease of native coronary artery without angina pectoris; E78.2 Mixed hyperlipidemia | CPT/HCPCS: 99214 ==

== ENCOUNTER → 2025-02-26 15:02 | Outpatient (BNVA) | payer MEDICARE, OTHER, SELFPAY | PROVIDERS: PCP Internal Medicine; Visit Provider Internal Medicine | DX: I10 Essential (primary) hypertension (principal); I25.10 Atherosclerotic heart disease of native coronary artery without angina pectoris; E78.5 Hyperlipidemia, unspecified; J44.9 Chronic obstructive pulmonary disease, unspecified; I25.2 Old myocardial infarction; Z98.61 Coronary angioplasty status; E13.9 Other specified diabetes mellitus without complications; Z79.4 Long term (current) use of insulin; Z79.85 Long-term (current) use of injectable non-insulin antidiabetic drugs | CPT/HCPCS: 99214 ==

== ENCOUNTER 2025-03-07 09:23 | Inpatient (IN) | payer MEDICARE, SELFPAY ==
[2025-03-07] VITALS (135 sets, daily range): BP systolic 72–128; BP diastolic 40–74; PULSE 70–115; RESP 14–30; TEMP 36.4–37.1; O2SAT 93–100; BMI 26.6; BMI 29.9
--- NOTE | 2025-03-07 09:39 | ECG_ITS ---
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 Measurements Intervals [place] Rate: 97 P: 53 OK: 160 QRS: 40 QRSD: 98 T: 167 QT: 371 QTc: 472 Interpretive Statements SINUS RHYTHM ST DEVIATION AND MODERATE T-WAVE ABNORMALITY, CONSIDER LATERAL ISCHEMIA [-0.1+ mV T-WAVE IN I/aVL/V5/V6] Compared to ECG 07/24/2024 20:31:17 Possible ischemia now present T-wave abnormality still present Electronically Signed On 03-07-2025 15:59:52 CDT by Brayden Figueroa M.D. [id number]
--- NOTE | 2025-03-07 09:39 | XR_ITS ---
WS: [id number] Exam: XR chest 1V portable [id number] Date/Time of Exam: 03/07/2025 9:48 AM Reason For Exam: dyspnea/cough Comparison 07/24/2024. Lungs are fully expanded and clear. Unremarkable cardiomediastinal silhouette for technique. No pleural effusion. XR/XR chest 1V portable [id number] IMPRESSION: 1. No acute cardiopulmonary finding.
--- NOTE | 2025-03-07 09:44 | W.ED.GENADLT ---
HPI - General Adult General: Chief complaint: Weakness Stated complaint: weakness, confusion, dizzy, n/v/d Time Seen by Provider: 03/07/25 09:38 History of Present Illness: 69-year-old female with history of coronary artery disease she is a smoker diabetic and history of hypertension presents emergency room several days of just generally not feeling well nausea and vomiting mild stomach upset. She seen her primary care doctor was thought to have gastroenteritis was given symptomatic treatment meds. She presents today triage nurse noted that she was found sitting in the waiting room, slumped over in her chair was mildly hypoxic she was brought back to room to be evaluated initial EKG shows some ST depression lateral to the leads not present in her previous EKGs. She denies any chest pain at this time vague abdominal discomfort overwhelming feeling of weakness no fever sweats or chills or productive cough. Associated symptoms: Reports dyspnea and malaise; Deny chest pain or rash Related Data Home Medications ?Medication ?Instructions ?Recorded ?Confirmed montelukast 10 mg tablet 10 mg PO QAM 05/07/20 03/07/25 (Singulair) omeprazole 40 mg capsule,delayed 40 mg PO QAM 05/07/20 03/07/25 release budesonide-formoterol HFA 160 1 puff inhalation BID 01/20/24 03/07/25 mcg-4.5 mcg/actuation aerosol inhaler (Symbicort) rosuvastatin 40 mg tablet 40 mg PO QPM 01/20/24 03/07/25 Held on 03/14/25. Instructions: Resume on 03/21/25. hold until liver enzymes improve clopidogrel 75 mg tablet 75 mg PO DAILY 05/10/24 03/07/25 sitagliptin phosphate 50 1 tab PO BID 08/18/24 03/07/25 mg-metformin 500 mg tablet (Janumet) Held on 03/14/25. Instructions: Resume on 03/21/25. tirzepatide 5 mg/0.5 mL 5 mg SUBCUT Q7D 03/07/25 03/07/25 subcutaneous pen injector (Alaina) Held on 03/14/25. Instructions: Resume on 03/21/25. hold until PCP follow up Previous Rx's ?Medication ?Instructions ?Recorded insulin aspart U-100 100 unit/mL See Rx Instructions .Route 02/07/24 (3 mL) subcutaneous pen (Novolog .COMPLEX PRN Hyperglycemia #15 mL FlexPen U-100 Insulin aspart) metoprolol tartrate 25 mg tablet 25 mg PO BID #90 tabs 12/04/24 amlodipine 10 mg tablet 10 mg PO DAILY 30 days #30 tabs 03/14/25 ciprofloxacin HCl 250 mg tablet 250 mg PO DAILY 4 days #4 tabs 03/14/25 (Cipro) ondansetron 8 mg disintegrating 8 mg PO BID PRN nausea 30 days #0 03/14/25 tablet tabs ropinirole 0.25 mg tablet 0.25 mg PO QPM 30 days #0 tabs 03/14/25 Allergies Allergy/AdvReac Type Severity Reaction Status Date / Time oak Allergy Mild ALGY-Nasal Verified 02/26/25 15:11 Discharge Penicillins Allergy ALGY-Rash Verified 02/26/25 15:11 Review of Systems Const: Reports: fever(s), body aches, fatigue and malaise; Denies: chills Card: Denies: chest pain Resp: Reports: dyspnea GI: Denies: abdominal pain : Reports: oliguria; Denies: dysuria, urinary frequency or urinary urgency Musc: Reports: neck pain; Denies: back pain Skin/Breast: Denies: rash PFSH ED PFSH: Medical History Degenerative joint disease of spine GERD (gastroesophageal reflux disease) Tobacco abuse Essential hypertension COPD (chronic obstructive pulmonary disease) Myocardial infarction ASHD (arteriosclerotic heart disease) Dyslipidemia Diabetes 1.5, managed as type 2 Surgical History History of hand surgery Joint replacements both hands Status post tubal ligation Status post ORIF of fracture of ankle S/P PTCA (percutaneous transluminal coronary angioplasty) Family History Father Lung cancer Mother Heart attack Sister Cancer COVID-19 Other CAD (coronary artery disease) Diabetes Social History Smoking and tobacco/nicotine status: never used tobacco/nicotine Alcohol intake: current Alcohol intake frequency: holidays/special occasions only Substance/Drug Use: never Physical Exam Const: GENERAL APPEARANCE: cooperative ORIENTATION/CONSCIOUSNESS: Yes awake, Yes oriented to person, Yes oriented to place and Yes oriented to time HENMT: COMMON NORMALS: normocephalic, atraumatic and hearing grossly normal bilaterally HEAD & SCALP: normocephalic and atraumatic Resp: COMMON NORMALS: normal respiratory effort, No retractions, No use of accessory muscles and clear to auscultation bilaterally AUSCULTATION: clear to auscultation bilaterally Cardio: COMMON NORMALS: regular rhythm and No murmurs present (Cardio) RATE: tachycardic RHYTHM: regular rhythm GI: COMMON NORMALS: Soft to palpation and No hepatosplenomegaly present AUSCULTATION: Yes normoactive bowel sounds PALPATION: Yes Soft to palpation, No Tenderness to palpation present (GI), No Guarding due to palpation present (GI) and Yes No hepatosplenomegaly present Extremity: COMMON NORMALS: normal to inspection, capillary refill normal, no clubbing, cyanosis or edema, no calf tenderness and no pedal edema Neuro: SENSORIUM/ORIENTATION: Yes oriented to person, Yes oriented to place and Yes oriented to time Skin: COMMON NORMALS: no rashes or lesions noted GENERAL SKIN EXAM: no rashes or lesions noted Procedures Central Line Placement Right IJ: Time Out Performed: Yes Patient Placed on Monitor/Pulse Ox: Yes MD Prep: mask, gown and gloves Central Line Prep: Chlorhexidine scrub Ultrasound Used for Placement: Yes Central Line Lumen Inserted: triple Post Procedure: sutured in place, good blood return, all ports aspirated, flushed, capped and sterile dressing applied Post Procedure X-Ray: tip of catheter in good position Patient Tolerated Procedure: well Complications: none Course Vital Signs: Vital signs: Vital Signs Temperature 98.0 F 03/14/25 16:37 Pulse Rate 90 03/14/25 16:37 Respiratory Rate 19 H 03/14/25 16:37 Blood Pressure 153/80 03/14/25 16:37 Pulse Oximetry 91 03/14/25 16:37 Oxygen Delivery Me thod Room Air 03/14/25 15:30 Oxygen Flow Rate 2 03/11/25 07:45 MDM - General Adult Medical Decision Making Patient presents septic with pyelonephritis significant lactic acid also has acute kidney injury. Liver enzymes elevated does have some sludge in the gallbladder discussed Dr. Velasquez with Dr. Sharpe I do not believe she has an acute cholecystitis believe this is due to shock liver.. CT of the abdomen did not show any nephrolithiasis. Central line placed as patient began to develop hypotension after IV fluid bolus and pressors were started. Long discussion with family as well as Dr. Ron Howard and Dr. Sharpe. Ultimately decided to admit the patient to the ICU here on IV pressors she has been given IV fluids blood gas shows a pH of 6 9 bicarb has been started as well as IV antibiotics. Initial antibiotics were Cipro and Flagyl out of concern for possible gallbladder pathology. Discussed with Dr. Crowe she will adjust antibiotics for broad-spectrum pyelonephritis. Additionally patient has inferior lateral ST segment depression. Her troponins are elevated but trended negative and believe that his troponin elevation is due to her acute kidney injury. I believe the EKG changes are due to her septic shock and from cardiomyopathy from her shock. Cardiology has been consulted regarding this as well. Early on in the course reviewed EKG changes with Dr. cain was concerned because of her complaint of neck pain that she was possibly having acute coronary syndrome she was given Plavix and a single 4000 unit dose of heparin. As further labs developed felt this was less likely and that the septic shock was more likely the cause. Medical Records I reviewed the patient's medical records. Lab Data 03/13/25 05:46 03/13/25 05:46 Radiology Impressions Abdomen Ultrasound 03/07/25 10:38 IMPRESSION: 1. Hepatomegaly with coarse hepatic echogenicity likely due to fatty infiltration or parenchymal disease. Correlation with liver function tests. 2. Sludge-filled gallbladder. Mild gallbladder wall thickening with trace edema measuring 3 mm. 3. Normal common bile duct. 4. No hydronephrosis in the RIGHT kidney. Abdomen/Pelvis CT 03/07/25 13:05 IMPRESSION: 1. Lundberg catheter. Bladder is decompressed. 2. No hydronephrosis in either kidney. 3. Trace pleural fluid in the lung bases with bibasilar atelectasis. 4. Fatty liver with hepatomegaly. 5. Small esophageal hiatal hernia. Chest X-Ray 03/09/25 00:07 IMPRESSION: Are increased linear and patchy opacities the lower raudel thoraces bilaterally and some slightly increased interstitial opacity seen in the left mid and lower hemithorax. Mild prominence of the pulmonary vasculature seen. These findings could represent combined atelectasis and pulmonary edema. Cholangiopancreatography MRI 03/09/25 10:00 IMPRESSION: 1. Normal common bile duct. No common bile duct obstruction. No intrahepatic duct dilatation. 2. Mild hepatomegaly with hepatic steatosis. Variable attenuation within the liver but no mass. 3. Small but enlarging bilateral pleural effusions. 4. Small amount of perihepatic fluid. 5. Bilateral perinephric stranding and fluid suggesting pyelonephritis. 6. Mild gallbladder wall edema may be based on hepatocellular disease and ascites. The gallbladder does not appear to be under tension. Early changes of acute cholecystitis not excluded. Abd US Ao-IVC-BPG Limited 03/09/25 17:42 IMPRESSION: As above. C-Arm Fluoroscopy 03/13/25 13:30 Impression: Insertion right dialysis catheter. Laboratory Results WBC 21.79 10^3/uL (3.29-11.43) H 03/07/25 10:12 RBC 4.23 10^6/uL (3.85-5.65) 03/07/25 10:12 Hgb 12.40 g/dL (11.27-16.99) 03/07/25 10:12 Hct 39.4 % (36-47) 03/07/25 10:12 MCV 93.1 fl (85-98) 03/07/25 10:12 MCH 29.3 pg (27-33) 03/07/25 10:12 MCHC 31.5 g/dL (30-55) 03/07/25 10:12 RDW 15.5 % (12.1-15.1) H 03/07/25 10:12 Plt Count 320 10^3/cmm (157-399) 03/07/25 10:12 MPV 11.8 fL (7.4-10.4) H 03/07/25 10:12 Neut % (Auto) 71.2 % 03/07/25 10:12 Lymph % (Auto) 17.4 % 03/07/25 10:12 Patrick % (Auto) 10.2 % 03/07/25 10:12 Eos % (Auto) 0.2 % 03/07/25 10:12 Baso % (Auto) 0.5 % 03/07/25 10:12 Neut # (Auto) 15.53 10^3/uL (1.8-7.7) H 03/07/25 10:12 Lymph # (Auto) 3.8 10^3/uL (0.8-4.8) 03/07/25 10:12 Patrick # (Auto) 2.2 10^3/uL (0.2-0.9) H 03/07/25 10:12 Eos # (Auto) 0.0 10^3/uL (0.0-0.8) 03/07/25 10:12 Baso # (Auto) 0.1 10^3/uL (0.0-0.1) 03/07/25 10:12 Nucleated RBC % (auto) 0 % 03/07/25 10:12 Nucleated RBCs # 0.0 /100WBC 03/07/25 10:12 PT 16.40 SECONDS (12.1-14.9) H 03/07/25 16:07 INR 1.24 (0.8-1.2) H 03/07/25 16:07 APTT 44.5 SECONDS (23.9-36.7) H 03/07/25 16:07 Specimen Type Arterial 03/07/25 16:14 Sample Site Radial, right 03/07/25 16:14 ABG pH 6.90 (7.35-7.45) L* 03/07/25 16:14 ABG pCO2 22.5 mmHg (35-45) L 03/07/25 16:14 ABG pO2 89.0 mmHg (80.0-100.0) 03/07/25 16:14 ABG PO2/FiO2 Ratio 423 03/07/25 16:14 ABG HCO3 4.4 mmol/L (22-26) L 03/07/25 16:14 ABG O2 Saturation 94.4 03/07/25 16:14 ABG Base Excess -27.4 mmol/L (-2.0-2.0) L 03/07/25 16:14 Juanjose Test Pos 03/07/25 16:14 A-a O2 Gradient 3.9 mmHg (5-10) L 03/07/25 16:14 Hematocrit 37.5 % (37-47) 03/07/25 16:14 Hgb O2 Saturation 93.2 % (95-100) L 03/07/25 16:14 Carboxyhemoglobin 0.8 %THgb (0.4-20.1) 03/07/25 16:14 Methemoglobin 0.5 % (0.4-1.5) 03/07/25 16:14 Total Hemoglobin 12.2 g/dL (12-16) 03/07/25 16:14 Sodium 127.0 mmol/L (131-143) L 03/07/25 16:14 Potassium 5.3 mmol/L (3.5-5.0) H 03/07/25 16:14 Glucose 168.0 mg/dL (70-115) H 03/07/25 16:14 Ionized Calcium 1.0 mmol/L (1.1-1.4) L 03/07/25 16:14 O2 Delivery Device Room air 03/07/25 16:14 FiO2 21.0 % 03/07/25 16:14 Structural Metal Fabricator Apprentice ID [id number] 03/07/25 16:14 Sodium 130 mmol/L (136-145) L 03/07/25 17:19 Potassium 5.5 mmol/L (3.5-5.1) H 03/07/25 17:19 Chloride 97 mmol/L (98-107) L 03/07/25 17:19 Carbon Dioxide 7 mmol/L (22-29) L* 03/07/25 17:19 Anion Gap 31.5 (5-19) H 03/07/25 17:19 BUN 62 mg/dL (8-23) H 03/07/25 17:19 Creatinine 8.9 mg/dL (0.5-0.9) H* 03/07/25 17:19 GFR Calculation 4.4 mL/min (90-130) L 03/07/25 17:19 Glucose 238 mg/dL (65-115) H 03/07/25 17:19 POC Glucose 91 mg/dL (70-110) 03/07/25 09:47 Estimat Average Glucose 306 03/07/25 10:12 Hemoglobin A1c 12.3 % (4.0-6.0) H 03/07/25 10:12 Calculated Osmolality 295 mOsm/kg (285-295) 03/07/25 17:19 Lactic Acid 5.8 mmol/L (0.5-2.2) H* 03/07/25 10:13 Lactic Acid (Sepsis) 4.1 mmol/L (0.5-2.2) H* 03/07/25 13:28 Calcium 8.7 mg/dL (8.5-10.5) 03/07/25 17:19 Total Bilirubin 0.5 mg/dL (0.15-1.2) 03/07/25 10:12 AST 754 U/L (0-32) H 03/07/25 10:12 ALT 581 U/L (0-33) H 03/07/25 10:12 Alkaline Phosphatase 152 U/L (35-105) H 03/07/25 10:12 Troponin T Baseline 69 ng/L (0-10) H 03/07/25 10:12 Troponin T 120 Minute 54.57 ng/L (0-10) H 03/07/25 12:17 Delta Troponin T -14.43 ABS# (0-10) L 03/07/25 12:17 Troponin T Hi Sens 6Hr 54.61 ng/L (0-10) H 03/07/25 16:07 Troponin T Hi Sens 6Hr Delta -14.39 ng/L (0-12) L 03/07/25 16:07 Total Protein 7.4 g/dL (6.6-8.7) 03/07/25 10:12 Albumin 3.8 g/dL (3.5-5.2) 03/07/25 10:12 Globulin 3.6 g/dL (1.3-4.6) 03/07/25 10:12 Lipase 55 U/L (13-60) 03/07/25 12:17 Procalcitonin > 100.00 ng/mL (0-0.5) H 03/07/25 10:12 Urine Color Yellow (Yellow) 03/07/25 13:03 Urine Appearance Cloudy (CLEAR) A 03/07/25 13:03 Urine pH 6 (5-7) 03/07/25 13:03 Ur Specific [place] 1.010 (1.005-1.030) 03/07/25 13:03 Urine Protein 3+ (Negative) A 03/07/25 13:03 Urine Glucose (UA) Norm (Normal) 03/07/25 13:03 Urine Ketones Negative (Negative) 03/07/25 13:03 Urine Blood 3+ (Negative) A 03/07/25 13:03 Urine Nitrate Negative (Negative) 03/07/25 13:03 Urine Bilirubin Neg (Negative) 03/07/25 13:03 Urine Urobilinogen Norm mg/dL (Negative) 03/07/25 13:03 Ur Leukocyte Esterase 2+ (Negative) A 03/07/25 13:03 Urine RBC 6-10 /hpf (0-2) 03/07/25 13:03 Urine WBC >100 /hpf (0-5) H 03/07/25 13:03 Ur Squamous Epith Cells 6-10 /hpf (0-5) 03/07/25 13:03 Amorphous Sediment Not Reportable 03/07/25 13:03 Urine Bacteria 4+ /hpf (NONE) H 03/07/25 13:03 Hyaline Casts 96.30 /lpf 03/07/25 13:03 All radiology interpretation(s) finalized by discharge Critical Care Time Critical Care Time: Critical Care Time: Yes Total Critical Care Time: 90 Attestation: The high probability of a clinically significant, sudden or life threatening deterioration of the patient's cardiovascular renal system(s) required my full and direct attention, intervention and personal management. The critical care time is as shown. This time is in addition to time spent performing any reported procedures but includes the following: [x] Data and vital sign review and interpretation [x] Patient assessment, examination and intervention [x] Documentation [x] Medication orders and management Discharge Plan Discharge Patient Disposition: Admitted As Inpatient Admit Provider: Rosalia Howard Clinical Impression: Septic shock, DM2 (diabetes mellitus, type 2), Acute pyelonephritis, Acute renal failure, Shock liver, Acute electrocardiogram changes Condition: Stable Discharge Diet: As Directed Discharge Activity: Resume usual activity Coding Level of Care Code ED Machine Tracer for Edilia Oquendo
--- NOTE | 2025-03-07 09:48 | ECG_ITS ---
[facility] Date: 2025-[facility]07 Pat Name: Lolita Sellers Department: Room: Gender: Female Regulatory Compliance Coordinator: : 1955 Requested By: Michele Mills Order Number: [id number] Ericka MD: Brayden Figueroa M.D. Measurements Intervals [place] Rate: 97 P: 0 AL: 0 QRS: 43 QRSD: 96 T: 186 QT: 365 QTc: 464 Interpretive Statements Normal Sinus Rhythm ST DEVIATION AND MODERATE T-WAVE ABNORMALITY, CONSIDER LATERAL ISCHEMIA [-0.1+ mV T-WAVE IN I/aVL/V5/V6] nonspecific ST changes in the inferior leads Compared to ECG 03/07/2025 09:39:18 Sinus rhythm no longer present T-wave abnormality still present Possible ischemia still present Electronically Signed On 03-07-2025 15:59:47 CDT by Brayden Figueroa M.D. [email or web address] [id number]
[2025-03-07 10:02] LABS: Glucose Point of Care 91 mg/dL (70-110)
[2025-03-07] MEDS: aspirin 81 mg Chew Tablet 324 MG PO (10:02)
--- NOTE | 2025-03-07 10:04 | ECG_ITS ---
[facility] Test Date: 2025-03-07 Pat Name: Lolita Sellers Department: Room: Gender: Female Assembly Machine Tender: : 1955 Requested By: Michele Mills Order Number: [id number] Ericka MD: Brayden Figueroa M.D. Measurements Intervals [place] Rate: 94 P: 61 ND: 161 QRS: 51 QRSD: 107 T: 29 QT: 357 QTc: 448 Interpretive Statements SINUS RHYTHM LOW QRS VOLTAGE IN PRECORDIAL LEADS [QRS DEFLECTION < 1.0 mV IN CHEST LEADS] POSSIBLE RIGHT VENTRICULAR CONDUCTION DELAY [RSR (QR) IN V1/V2] SEPTAL MYOCARDIAL INFARCTION , OF INDETERMINATE AGE [40+ ms Q WAVE IN V1/V2] ST DEVIATION AND MODERATE T-WAVE ABNORMALITY, CONSIDER LATERAL ISCHEMIA [-0.1+ mV T-WAVE IN I/aVL/V5/V6] INTERPRETATION BASED ON A DEFAULT AGE OF 40 YEARS Compared to ECG 03/07/2025 09:53:36 Low QRS voltage now present.Myocardial infarct finding now present Atrial flutter no longer present. T-wave abnormality still present Possible ischemia still present . Electronically Signed On 03-07-2025 15:58:44 CDT by Brayden Figueroa M.D. [id number] [id number]
[2025-03-07] MEDS: clopidogrel 300 mg Tablet PO (10:16)
[2025-03-07] MEDS: sodium chloride 0.9% 500 ML 999 ML IV (10:16)
[2025-03-07] MEDS: heparin 5,000 unit/mL INJ 1 mL 4000 UNIT SUBCUT (10:16)
[2025-03-07 10:17] LABS: Basophils # 0.1 10^3/uL (0.0-0.1); Basophils % 0.5 %; Eosinophils % 0.2 %; Hematocrit 39.4 % (36-47); Lymphocytes # 3.8 10^3/uL (0.8-4.8); Lymphocytes % 17.4 %; Mean Corpuscular HGB Conc 31.5 g/dL (30-55); Mean Corpuscular Hemoglobin 29.3 pg (27-33); Mean Corpuscular Volume 93.1 fl (85-98); Mean Platelet Volume 11.8 fL (7.4-10.4); Monocytes # 2.2 10^3/uL (0.2-0.9); Monocytes % 10.2 %; Neutrophils # 15.53 10^3/uL (1.8-7.7); Neutrophils % 71.2 %; Nucleated Red Blood Cells % 0 %; Platelet Count 320 10^3/cmm (157-399); Red Blood Count 4.23 10^6/uL (3.85-5.65); Red Cell Distribution Width 15.5 % (12.1-15.1); White Blood Count 21.79 10^3/uL (3.29-11.43)
[2025-03-07 10:34] LABS: Alanine Aminotransferase 581 U/L (0-33); Albumin Level 3.8 g/dL (3.5-5.2); Alkaline Phosphatase 152 U/L (35-105); Anion Gap 34.8 (5-19); Blood Urea Nitrogen 64 mg/dL (8-23); Calcium 8.1 mg/dL (8.5-10.5); Chloride 91 mmol/L (98-107); Creatinine Clr Calc Pharmacy 4.6889; Globulin 3.6 g/dL (1.3-4.6); Glucose 95 mg/dL (65-115); Osmolality Calculated 284 mOsm/kg (285-295); Potassium 4.8 mmol/L (3.5-5.1); Sodium 128 mmol/L (136-145); Total Bilirubin 0.5 mg/dL (0.15-1.2); Total Protein 7.4 g/dL (6.6-8.7)
[2025-03-07 10:37] LABS: Carbon Dioxide 7 mmol/L (22-29)
--- NOTE | 2025-03-07 10:38 | US_ITS ---
WS: [id number] ULTRASOUND ABDOMEN LIMITED CLINICAL INFORMATION: elevated LFTs COMPARISON: None. FINDINGS: Liver Size: Enlarged Craniocaudal length: 15.9 cm. Echogenicity: Coarse Surface nodularity: None. Mass (size and location): None. Bile ducts Intrahepatic ducts: Normal. Common bile duct diameter: 0.6 cm. Gallbladder Sludge Gallstones: None. Gallbladder sludge: Present Gallbladder wall thickenin mm Pericholecystic fluid: None. Sonographic Shelton sign: Absent. Pancreas Normal as visualized. Right kidney: Normal. Hydronephrosis: None. Size: 11.6 cm x 6.1 cm x 5.6 cm. Abdominal aorta and IVC Visualized portions are normal. Ascites: None. US/US abdomen limited 81400 IMPRESSION: 1. Hepatomegaly with coarse hepatic echogenicity likely due to fatty infiltrat ion or parenchymal disease. Correlation with liver function tests. 2. Sludge-filled gallbladder. Mild gallbladder wall thickening with trace roxanne a measuring 3 mm. 3. Normal common bile duct. 4. No hydronephrosis in the RIGHT kidney.
[2025-03-07 10:44] LABS: Aspartate Amino Transferase 754 U/L (0-32)
[2025-03-07 10:58] LABS: Troponin(5th) Baseline 69 ng/L (0-10)
[2025-03-07 10:59] LABS: Lactic Sepsis W/Reflex 5.8 mmol/L (0.5-2.2)
[2025-03-07] MEDS: sodium chloride 0.9% 1,000 ML 999 ML IV (11:41)
[2025-03-07] MEDS: ciprofloxacin 400 MG/200 ML PREMIX 200 MG IV (11:42)
[2025-03-07] MEDS: metroNIDAZOLE IV 500 MG/100 ML PREMIX 100 MG IV (11:43)
--- NOTE | 2025-03-07 11:59 | ECG_ITS ---
[facility] Test Date: 2025-03-07 Pat Name: Lolita Sellers Department: Room: Gender: Female Line Up Machine Operator: : 1955 Requested By: Michele Mills Order Number: [id number] Ericka MD: Brayden Figueroa M.D. Measurements Intervals [place] Rate: 97 P: 0 IL: 0 QRS: 73 QRSD: 101 T: 68 QT: 377 QTc: 481 Interpretive Statements Normal Sinus Rhythm ST DEVIATION AND MODERATE T-WAVE ABNORMALITY, CONSIDER LATERAL ISCHEMIA [-0.1+ mV T-WAVE IN I/aVL/V5/V6] diffuse ST-T changes Compared to ECG 03/07/2025 10:04:10 Myocardial infarct finding no longer present T-wave abnormality still present Possible ischemia still present Electronically Signed On 03-07-2025 21:31:28 CDT by Brayden Figueroa M.D. [email or web address] [id number]
[2025-03-07 12:31] LABS: Reflex Lactate Order REFLEX LACTIC ORDERD
--- NOTE | 2025-03-07 12:34 | PM.CONSULT ---
Providers/Reason For Consult Consulting Physician/Specialty*: Dr. Velasquez general surgery Reason for Consult*: Cholecystitis Primary Care Provider: Dhruv Zapata MD History of Present Illness History of Present Illness Lolita Sellers is a 69 year old female with multiple medical problems recently admitted with a UTI. Surgery consulted to evaluate for possible cholecystitis/ascending cholangitis. Patient reports not feeling well for the past few days. Denies abdominal pain. Patient does have some EKG changes. Elevated troponins. Hypotensive. Ultrasound demonstrated some sludge and gallbladder thickening but no pericholecystic fluid no stones. Elevated LFTs but T. bili is within normal range most consistent with shock liver. CBD is not enlarged. Medications/Allergies Home Medications ?Medication ?Instructions ?Recorded ?Confirmed ?Last Taken ?Type montelukast 10 mg tablet 10 mg PO QAM 05/07/20 03/07/25 07/24/24 History (Singulair) omeprazole 40 mg capsule,delayed 40 mg PO QAM 05/07/20 03/07/25 07/24/24 History release budesonide-formoterol HFA 160 1 puff inhalation BID 01/20/24 03/07/25 07/24/24 History mcg-4.5 mcg/actuation aerosol inhaler (Symbicort) gabapentin 800 mg tablet 800 mg PO QID 01/20/24 03/07/25 07/24/24 History ropinirole 0.25 mg tablet 25 mg PO QPM 01/20/24 03/07/25 07/23/24 History rosuvastatin 40 mg tablet 40 mg PO QPM 01/20/24 03/07/25 07/23/24 History insulin aspart U-100 100 unit/mL See Rx Instructions .Route 02/07/24 03/07/25 07/24/24 Rx (3 mL) subcutaneous pen (Novolog .COMPLEX PRN Hyperglycemia #15 mL FlexPen U-100 Insulin aspart) clopidogrel 75 mg tablet 75 mg PO DAILY 05/10/24 03/07/25 07/24/24 History sitagliptin phosphate 50 1 tab PO BID 08/18/24 03/07/25 Unknown History mg-metformin 500 mg tablet (Janumet) lisinopril 20 mg tablet 10 mg (1/2 x 20 mg) PO QAM #45 tabs 12/04/24 03/07/25 Unknown Rx metoprolol tartrate 25 mg tablet 25 mg PO BID #90 tabs 12/04/24 03/07/25 Unknown Rx ondansetron 8 mg disintegrating 8 mg PO BID 03/07/25 03/07/25 Unknown History tablet tirzepatide 5 mg/0.5 mL 5 mg SUBCUT Q7D 03/07/25 03/07/25 Unknown History subcutaneous pen injector (Mounjaro) Allergies Allergy/AdvReac Type Severity Reaction Status Date / Time oak Allergy Mild ALGY-Nasal Verified 02/26/25 15:11 Discharge Penicillins Allergy ALGY-Rash Verified 02/26/25 15:11 PFSH Acute PFSH: Medical History Degenerative joint disease of spine GERD (gastroesophageal reflux disease) Tobacco abuse Essential hypertension COPD (chronic obstructive pulmonary disease) Myocardial infarction ASHD (arteriosclerotic heart disease) Dyslipidemia Diabetes 1.5, managed as type 2 Surgical History History of hand surgery Joint replacements both hands Status post tubal ligation Status post ORIF of fracture of ankle S/P PTCA (percutaneous transluminal coronary angioplasty) Family History Father Lung cancer Mother Heart attack Sister Cancer COVID-19 Other CAD (coronary artery disease) Diabetes Social History Smoking and tobacco/nicotine status: never used tobacco/nicotine Alcohol intake: current Alcohol intake frequency: holidays/special occasions only Substance/Drug Use: never Vitals/I&O/Wt Last Vital Signs Temp 97.5 F L 03/07/25 09:44 Pulse 100 03/07/25 09:44 Resp 16 03/07/25 09:44 BP 97/57 03/07/25 09:44 Pulse Ox 98 03/07/25 09:44 O2 Del Method Room Air 03/07/25 09:44 Weight last 48 hrs Weight 141 lb Physical Exam Narrative: Chest: Unlabored breathing room air. No lymphadenopathy. Heart: Regular rate and rhythm. Abdomen: Soft, nontender, nondistended. No masses or lymphadenopathy. Data 03/07/25 10:12 03/07/25 10:12 Micro: Microbiology 03/07/25 11:05 Blood Culture - Preliminary Blood SPECIMEN COLLECTED 03/07/25 11:02 Blood Culture - Preliminary Blood SPECIMEN COLLECTED A&P Assessment and plan (1) Cholecystitis: Plan 69-year-old female in septic shock recently admitted with a UTI. General surgery consulted given ultrasound findings and elevated LFTs. I have a low suspicion for cholecystitis. Elevation in LFTs most consistent with shock liver. If there is a concern for cholecystitis or ascending cholangitis the best option is to proceed with a cholecystostomy tube. Patient is too sick for a cholecystectomy. Discussed with ED. Will follow. PDMP PDMP Reviewed: Not Reviewed Coding Level of Care Code 88185 Diagnoses Cholecystitis K81.9
[2025-03-07 12:39] LABS: Troponin 5 2HR 54.57 ng/L (0-10)
[2025-03-07 12:42] LABS: Troponin 5 2HR Delta -14.43 ABS# (0-10)
--- NOTE | 2025-03-07 13:05 | CT_ITS ---
WS: [id number] CT ABDOMEN PELVIS TECHNIQUE: Noncontrast CT of the abdomen and pelvis with coronal and sagittal reformatted images. CLINICAL INFORMATION: flank pain COMPARISON: CT 07/24/2024 DLP: 502.[address] scans at [facility] use at least one of these dose optimization techniques: automated exposure control; mA and/or kV adjustment per patient size (includes targeted exams where dose is matched to clinical indication); or iterative reconstruction. FINDINGS: Hepatomegaly with fatty infiltration. Small esophageal hernia. Gallbladder sludge. No fluid in the gallbladder fossa. Normal noncontrast fatty atrophy of the pancreas. Trace pleural fluid with bibasilar atelectasis. Adrenal glands are normal. No hydronephrosis in either kidney. Normal caliber abdominal aorta. Aortic calcification. Normal sigmoid colon. CT/CT kidney stone [id number] IMPRESSION: 1. Lundberg catheter. Bladder is decompressed. 2. No hydronephrosis in either kidney. 3. Trace pleural fluid in the lung bases with bibasilar atelectasis. 4. Fatty liver with hepatomegaly. 5. Small esophageal hiatal hernia.
[2025-03-07 13:30] LABS: Bacteria Urine 4+ /hpf; WBC Urine >100 /hpf (0-5)
[2025-03-07 14:02] LABS: Lactic Acid level (Lactate) 4.1 mmol/L (0.5-2.2)
[2025-03-07 14:05] LABS: Urine Appearance Cloudy (CLEAR); Urine Color Yellow (Yellow); pH Urine 6 (5-7)
[2025-03-07 14:06] LABS: Add Urine Microscopic? YES; Bilirubin Urine Neg (Negative); Blood Urine 3+ (Negative); Glucose Urine UA Norm (Normal); Ketones Urine Negative (Negative); Leukocyte Esterase Urine 2+ (Negative); Nitrate Urine Negative (Negative); Protein Urine 3+ (Negative); Urobilinogen Urine Norm (Negative)
[2025-03-07 14:07] LABS: UA Slide Review UA Slide Review Perf
[2025-03-07 14:08] LABS: Add Urine Culture? Yes
[2025-03-07 14:13] LABS: Lipase 55 U/L (13-60)
--- NOTE | 2025-03-07 14:48 | XR_ITS ---
WS: [id number] Exam: XR chest 1V portable [id number] Date/Time of Exam: 03/07/2025 2:49 PM Reason For Exam: CENTRAL LINE Comparison 03/07/2025 at 9:57 a.m. A right-sided IJ catheter has been placed and ends in the RIGHT atrium. The lungs remain fully expanded. Normal cardiomediastinal silhouette. No change identified otherwise since the last exam. XR/XR chest 1V portable [id number] IMPRESSION: 1. Right-sided central line ending in the RIGHT atrium. The chest is otherwise unchanged.
[2025-03-07] MEDS: norepinephrine 4 MG/250 ML BAG 7.5 MG IV (15:18)
[2025-03-07 16:11] LABS: Estmated Average Glucose 306; Hemoglobin A1C 12.3 % (4.0-6.0)
--- NOTE | 2025-03-07 16:18 | PM.HP ---
Providers/Chief Complaint Primary Care Provider: Dhruv Zapata MD Chief Complaint: weakness, confusion, dizzy, n/v/d History of Present Illness Lolita Sellers is a 69 year old female with history of diabetes, hypertension, coronary disease, last stent 2019, recurrent UTI, presented to the hospital for generalized weakness and fatigue. Patient stating that she has been sick for last 7 days, she has not noticed any fever, experienced 4-5 episodes of nausea with vomiting. She not noticed any chest pain. She was complaining of neck pain which has improved now, she has not noticed worsening of her neck pain, not endorsing headache or blurry vision or any focal deficits. Patient is not endorsing abdominal pain dysuria or urinary frequency. Patient stating that she was not able to function today that is why she came to the hospital for further evaluation. She has not taken her Plavix for last 4 days. Workup in the ER consistent with septic shock, central line has been placed, bicarb requested for severe metabolic acidosis patient has been evaluated by nephrology and cardiology, at the time evaluation no sign of meningitis, bicarb drip is being initiated, source of infection seems to be UTI, for concern related to gallbladder infection Case was discussed with general surgery and radiology, gallbladder etiology seems less likely at this point Patient is being transferred to ICU She is awake and alert AO x 4 GCS 15 NIH 0 is at the bedside Lundberg catheter placed, cloudy urine obtained Review of Systems Const: Denies: fever(s) ENMT: Denies: throat pain Card: Reports: chest pain Resp: Denies: dyspnea GI: Reports: nausea and vomiting : Denies: flank pain Musc: Reports: neck pain Neuro: Denies: headache(s) or numbness in extremities Medications/Allergies Home Medications ?Medication ?Instructions ?Recorded ?Confirmed ?Last Taken ?Type montelukast 10 mg tablet 10 mg PO QAM 05/07/20 03/07/25 07/24/24 History (Singulair) omeprazole 40 mg capsule,delayed 40 mg PO QAM 05/07/20 03/07/25 07/24/24 History release budesonide-formoterol HFA 160 1 puff inhalation BID 01/20/24 03/07/25 07/24/24 History mcg-4.5 mcg/actuation aerosol inhaler (Symbicort) gabapentin 800 mg tablet 800 mg PO QID 01/20/24 03/07/25 07/24/24 History ropinirole 0.25 mg tablet 25 mg PO QPM 01/20/24 03/07/25 07/23/24 History rosuvastatin 40 mg tablet 40 mg PO QPM 01/20/24 03/07/25 07/23/24 History insulin aspart U-100 100 unit/mL See Rx Instructions .Route 02/07/24 03/07/25 07/24/24 Rx (3 mL) subcutaneous pen (Novolog .COMPLEX PRN Hyperglycemia #15 mL FlexPen U-100 Insulin aspart) clopidogrel 75 mg tablet 75 mg PO DAILY 05/10/24 03/07/25 07/24/24 History sitagliptin phosphate 50 1 tab PO BID 08/18/24 03/07/25 Unknown History mg-metformin 500 mg tablet (Janumet) lisinopril 20 mg tablet 10 mg (1/2 x 20 mg) PO QAM #45 tabs 12/04/24 03/07/25 Unknown Rx metoprolol tartrate 25 mg tablet 25 mg PO BID #90 tabs 12/04/24 03/07/25 Unknown Rx ondansetron 8 mg disintegrating 8 mg PO BID 03/07/25 03/07/25 Unknown History tablet tirzepatide 5 mg/0.5 mL 5 mg SUBCUT Q7D 03/07/25 03/07/25 Unknown History subcutaneous pen injector (Mounjaro) Allergies Allergy/AdvReac Type Severity Reaction Status Date / Time oak Allergy Mild ALGY-Nasal Verified 02/26/25 15:11 Discharge Penicillins Allergy ALGY-Rash Verified 02/26/25 15:11 PFSH Acute PFSH: Medical History Degenerative joint disease of spine GERD (gastroesophageal reflux disease) Tobacco abuse Essential hypertension COPD (chronic obstructive pulmonary disease) Myocardial infarction ASHD (arteriosclerotic heart disease) Dyslipidemia Diabetes 1.5, managed as type 2 Surgical History History of hand surgery Joint replacements both hands Status post tubal ligation Status post ORIF of fracture of ankle S/P PTCA (percutaneous transluminal coronary angioplasty) Family History Father Lung cancer Mother Heart attack Sister Cancer COVID-19 Other CAD (coronary artery disease) Diabetes Social History Smoking and tobacco/nicotine status: never used tobacco/nicotine Alcohol intake: current Alcohol intake frequency: holidays/special occasions only Substance/Drug Use: never Vitals/I&O/Wt Last Vital Signs Temp 97.5 F L 03/07/25 09:44 Pulse 97 03/07/25 15:15 Resp 18 03/07/25 14:55 BP 90/50 03/07/25 15:48 Pulse Ox 93 03/07/25 15:15 O2 Del Method Room Air 03/07/25 12:30 03/07/25 03/07/25 03/07/25 06:59 14:59 22:59 Intake Total 3722.835 / 3722.835 Balance 3722.835 / 3722.835 Weight last 48 hrs Weight 63.957 kg Physical Exam Narrative: Patient is awake and alert AO x 4 GCS 15 Unable No cellulitis S1, S2 Right-sided central line in place right IJ Nontender abdomen Lundberg catheter in place with cloudy urine sediments noted Clinically patient extremely dry Dry mucous membrane She is not confused Kernig's and Brudzinski sign negative at the bedside Currently patient is on room air Urinary Catheter Management: Lundberg: Cath Placed During This Visit: yes Urinary Catheter Date of Insertion: 03/07/25 Sepsis: Is patient septic: Yes Focused sepsis exam performed: Yes Focused sepsis exam: 200 mL urine output Peripheral pulses intact No skin mottling Patient is not confused Able to answer my questions Date exam was performed: 03/07/25 Time exam was performed: 20:26 Data 03/07/25 10:12 03/07/25 10:12 Micro: Microbiology 03/07/25 11:05 Blood Culture - Preliminary Blood SPECIMEN COLLECTED 03/07/25 11:02 Blood Culture - Preliminary Blood SPECIMEN COLLECTED A&P Assessment and plan (1) Septic shock: (2) DM2 (diabetes mellitus, type 2): (3) Sepsis: (4) Shock: (5) Transaminitis: (6) Urinary tract infection: (7) Acute pyelonephritis: (8) Acute renal failure: (9) Dehydration: Plan Septic shock Criteria met with tachypnea tachycardia leukocytosis high lactic acid with endorgan damage Septic bolus to be administered Initiation of meropenem secondary to UTI Previous urine culture showed sensitivity to penicillin and cephalosporins Patient currently requiring Levophed Right IJ in place Severe metabolic acidosis with acute renal failure Lundberg catheter has been placed No signs of hydronephrosis Concern for development of ATN, patient has been sick for last 7 days he has been taking her antihypertensive regimen as well Bicarb drip to be initiated Admit to ICU BMP every 12 hours Acute renal failure Currently on bicarb drip Nephrology consulted No acute indication for dialysis Stop nephrotoxic agents Sepsis induced cardiomyopathy History of established coronary disease no active chest pain EKG with dynamic changes, patient not complain of chest pain: Troponin trending down despite acute renal failure likely related to demand ischemia Evaluated by cardiology Continue Plavix As per the patient last stent in 2019 Shock liver Cholecystostomy tube will be considered if patient starts showing signs of cholecystitis Type 2 diabetes, will advance to consistent carb diet, insulin sliding scale, A1c is 12.3 If her bicarb does not improve she may need dialysis overnight Will follow-up with repeat labs Full code Admit to ICU DVT prophylaxis: Heparin PDMP PDMP Reviewed: Not Reviewed Attestations Medical Necessity Statement*: More than 2 midnights anticipated Diagnoses Septic shock A41.9; R65.21 DM2 (diabetes mellitus, type 2) E11.9 Sepsis A41.9 Shock R57.9 Transaminitis R74.01 Urinary tract infection N39.0 Acute pyelonephritis N10 Acute renal failure N17.9 Dehydration E86.0
[2025-03-07] MEDS: lactated ringers 1,000 ML 125 ML IV (16:21)
[2025-03-07 16:23] LABS: INR 1.24 (0.8-1.2)
[2025-03-07 16:24] LABS: Partial Thromboplastin Time 44.5 SECONDS (23.9-36.7)
[2025-03-07 16:25] LABS: ABG PCO2 22.5 mmHg (35-45); Alveolar-Arterial Oxygen Gradi 3.9 mmHg (5-10); Arterial Blood Gas Hematocrit 37.5 % (37-47); Base Excess ABG -27.4 mmol/L (-2.0-2.0); Blood Gas Allen Test Pos; Blood Gas Operator Identificat 0AMH; Blood Gas Sample Site Radial, right; Blood Gas Sample Type Arterial; Carboxyhemoglobin 0.8 %THgb (0.4-20.1); HCO3 ABG 4.4 mmol/L (22-26); HGB O2 Sat 93.2 % (95-100); Methemoglobin 0.5 % (0.4-1.5); Oxygen Device ROOM AIR; Oxygen Saturation ABG 94.4; PO2 FiO2 Ratio Arterial Blood 423; Potassium Level - ABG 5.3 mmol/L (3.5-5.0); Total Hemoglobin 12.2 g/dL (12-16)
[2025-03-07] MEDS: sodium bicarbonate 8.4% syr 100 MEQ in dextrose 5% 250 ML 700 MEQ IV (16:28)
--- NOTE | 2025-03-07 16:36 | ECG_ITS ---
[facility]25[facility] Pat Name: Lolita Sellers Department: Room: Gender: Female Statement Clerk: : 1955 Requested By: Michele Mills Order Number: [id number] Ericka MD: Brayden Figueroa M.D. Measurements Intervals [place] Rate: 101 P: 70 [place]: 136 QRS: 71 QRSD: 107 T: 6 QT: 384 QTc: 500 Interpretive Statements SINUS TACHYCARDIA NONSPECIFIC ST & T-WAVE ABNORMALITY ABNORMAL RHYTHM ECG Compared to ECG 03/07/2025 11:59:27 Atrial flutter no longer present Possible ischemia no longer present T-wave abnormality still present Electronically Signed On 03-07-2025 21:29:50 CDT by Brayden Figueroa M.D. [email or web address]
[2025-03-07 16:39] LABS: Troponin 5 6HR 54.61 ng/L (0-10); Troponin 5 6HR Delta -14.39 ng/L (0-12)
[2025-03-07] MEDS: meropenem 500 mg SDV IVP (16:43)
[2025-03-07] MEDS: vancomycin 1,250 MG/250 ML PIGGYBACK 166.67 MG IV (16:45)
[2025-03-07] MEDS: calcium chloride 10% Syr 10 mL 1 GM IVP (16:54)
[2025-03-07 16:59] LABS: Procalcitonin > 100.00 ng/mL (0-0.5)
[2025-03-07] MEDS: sodium bicarbonate 150 MEQ in dextrose 5% 1,000 ML 100 MEQ IV (16:59)
--- NOTE | 2025-03-07 17:05 | PM.CONSULT ---
Providers/Reason For Consult Consulting Physician/Specialty*: kommana/Nephrology Reason for Consult*: CARLOS , severe metabolic acidosis Primary Care Provider: Dhruv Zapata MD History of Present Illness History of Present Illness Lolita Sellers is a 69 year old female Patient is a 69-year-old female with past medical history of diabetes hypertension, coronary artery disease with stents, history of recurrent UTIs was sent to the hospital due to generalized weakness fatigue going on for the last few days. Patient in the emergency department was noted to be hypotensive and labs revealed severe CARLOS with a creatinine of 9.7 and severe metabolic acidosis with a bicarbonate of 7. Patient UA is consistent with UTI and she is admitted to ICU on on Levophed currently. Lundberg catheter placed. Currently on bicarbonate drip. Review of Systems Narrative: Other review of systems negative Medications/Allergies Home Medications ?Medication ?Instructions ?Recorded ?Confirmed ?Last Taken ?Type montelukast 10 mg tablet 10 mg PO QAM 05/07/20 03/07/25 07/24/24 History (Singulair) omeprazole 40 mg capsule,delayed 40 mg PO QAM 05/07/20 03/07/25 07/24/24 History release budesonide-formoterol HFA 160 1 puff inhalation BID 01/20/24 03/07/25 07/24/24 History mcg-4.5 mcg/actuation aerosol inhaler (Symbicort) gabapentin 800 mg tablet 800 mg PO QID 01/20/24 03/07/25 07/24/24 History ropinirole 0.25 mg tablet 25 mg PO QPM 01/20/24 03/07/25 07/23/24 History rosuvastatin 40 mg tablet 40 mg PO QPM 01/20/24 03/07/25 07/23/24 History insulin aspart U-100 100 unit/mL See Rx Instructions .Route 02/07/24 03/07/25 07/24/24 Rx (3 mL) subcutaneous pen (Novolog .COMPLEX PRN Hyperglycemia #15 mL FlexPen U-100 Insulin aspart) clopidogrel 75 mg tablet 75 mg PO DAILY 05/10/24 03/07/25 07/24/24 History sitagliptin phosphate 50 1 tab PO BID 08/18/24 03/07/25 Unknown History mg-metformin 500 mg tablet (Janumet) lisinopril 20 mg tablet 10 mg (1/2 x 20 mg) PO QAM #45 tabs 12/04/24 03/07/25 Unknown Rx metoprolol tartrate 25 mg tablet 25 mg PO BID #90 tabs 12/04/24 03/07/25 Unknown Rx ondansetron 8 mg disintegrating 8 mg PO BID 03/07/25 03/07/25 Unknown History tablet tirzepatide 5 mg/0.5 mL 5 mg SUBCUT Q7D 03/07/25 03/07/25 Unknown History subcutaneous pen injector (Mounjaro) Allergies Allergy/AdvReac Type Severity Reaction Status Date / Time oak Allergy Mild ALGY-Nasal Verified 02/26/25 15:11 Discharge Penicillins Allergy ALGY-Rash Verified 02/26/25 15:11 Current Medications Generic Name Dose Route Start Last Admin Trade Name Freq PRN Reason Stop Dose Admin Heparin Sodium (Porcine) 5,000 unit 03/07/25 16:00 03/07/25 16:40 Heparin 5,000 Unit/Ml Inj 1 Ml SUBCUT Not Given Q12H KENDALL Norepinephrine Bitartrate 4 mg in 250 mls @ 0 mls/hr 03/07/25 14:00 03/07/25 15:35 Levophed IV 6 mcg/min .Q0M KENDALL 22.5 mls/hr Titration Protocol Per Protocol Lactated Ringer's 1,000 mls @ 125 mls/hr 03/07/25 15:30 03/07/25 16:59 Lactated Ringers IV 50 mls/hr .Q8H KENDALL Infusion Sodium Bicarbonate 150 meq/ 1,150 mls @ 100 mls/hr 03/07/25 15:45 03/07/25 16:59 Dextrose IV 100 mls/hr .[id number] KENDALL Administration Vancomycin HCl 1,250 mg in 250 mls @ 166.667 mls/hr 03/07/25 16:00 03/07/25 16:45 Vancocin IV 03/07/25 17:29 166.67 mls/hr ONCE ONE Administration Meropenem 500 mg 03/07/25 16:00 03/07/25 16:43 Meropenem 500 Mg Sdv IVP 500 mg Q12H KENDALL Administration Protocol PFSH Acute PFSH: Medical History Degenerative joint disease of spine GERD (gastroesophageal reflux disease) Tobacco abuse Essential hypertension COPD (chronic obstructive pulmonary disease) Myocardial infarction ASHD (arteriosclerotic heart disease) Dyslipidemia Diabetes 1.5, managed as type 2 Surgical History History of hand surgery Joint replacements both hands Status post tubal ligation Status post ORIF of fracture of ankle S/P PTCA (percutaneous transluminal coronary angioplasty) Family History Father Lung cancer Mother Heart attack Sister Cancer COVID-19 Other CAD (coronary artery disease) Diabetes Social History Smoking and tobacco/nicotine status: never used tobacco/nicotine Alcohol intake: current Alcohol intake frequency: holidays/special occasions only Substance/Drug Use: never Vitals/I&O/Wt Last Vital Signs Temp 97.5 F L 03/07/25 09:44 Pulse 104 H 03/07/25 17:00 Resp 19 H 03/07/25 17:00 BP 99/60 03/07/25 17:00 Pulse Ox 97 03/07/25 17:00 O2 Del Method Room Air 03/07/25 12:30 03/07/25 03/07/25 03/07/25 06:59 14:59 22:59 Intake Total 4152.002 / 4152.002 Balance 4152.002 / 4152.002 Weight last 48 hrs Weight 63.957 kg Physical Exam Narrative: Patient is awake alert, no distress, on 2 L O2 by nasal cannula PERRLA S1-S2 regular rate and rhythm per report Lungs clear bilaterally per report Abdomen soft nontender per report No pedal edema Urinary Catheter Management: Lundberg: Cath Placed During This Visit: yes Urinary Catheter Date of Insertion: 03/07/25 Data 03/08/25 04:15 03/08/25 04:15 Micro: Microbiology 03/07/25 11:05 Blood Culture - Preliminary Blood SPECIMEN COLLECTED 03/07/25 11:02 Blood Culture - Preliminary Blood SPECIMEN COLLECTED A&P Assessment and plan (1) Acute renal failure: Plan 1. Acute kidney injury superimposed on CKD stage III: Baseline creatinine in the 1.1-1.2 range, last in August 2024. Now has severe CARLOS with a creatinine of 9.7 and associated with severe metabolic acidosis. Patient anuric. Despite bicarbonate drip and IV fluid resuscitation her metabolic acidosis has not improved and discussed with patient regarding temporary dialysis. Temporary HD catheter was placed and plan to initiate HD. -Will check renal ultrasound , urine electrolytes, serologies -Assess daily for HD needs 2. Severe metabolic acidosis: With anion gap, likely in the setting of sepsis and CARLOS. HD as above 3. Sepsis likely pyelonephritis, further workup pending 4. Shock, hypotension, on pressors 5. History of coronary artery disease 6. Shock liver in the setting of sepsis, Patient evaluated using audiovisual cart. Time spent 40-minutes PDMP PDMP Reviewed: Not Reviewed Coding Level of Care Code Acute Code for g Fwd Diagnoses Acute renal failure N17.9
--- NOTE | 2025-03-07 17:37 | P.CONIM_ITS ---
<Statement entered by Rojelio Phillips MD - 03/07/25 22:06> Patient was evaluated and cared for in conjunction with an advanced practice practitioner. I personally examined the patient and reviewed the chart and all pertinent data including imaging, telemetry, and laboratory results. I discussed the patient in detail with the advanced practice practitioner. Please see their note for complete H&P testing result and agreed upon plan of care for the patient. 69-year-old female past medical history significant for hypertension hyperlipidemia coronary artery disease history of prior intervention presented with nausea vomiting renal failure transaminitis and sepsis-like picture she was noted to have elevated cardiac markers in the form of troponin. She denies categorically chest pain PND orthopnea or any heart failure symptoms. GENERAL: Patient is alert, awake and oriented x3. Laying in the bed HEART: Regular S1 and S2. No murmur, rub or gallop. LUNGS: decreased breath sound bilaterally. CENTRAL NERVOUS SYSTEM: Grossly nonfocal. EXTREMITIES: Lower extremities with out edema bilaterally. Elevated cardiac markers/non-STEMI/most likely type II and sepsis induced Will obtain echocardiogram to assess LV function and wall motion abnormality Patient remained stable denies any complaint once vital improved and off pressors will consider initiating beta-blockers otherwise continue to monitor Providers/Reason For Consult 2 Consulting Physician/Specialty*: Rojelio Phillips MD Reason for Consult*: EKG changes, elevated troponin Requesting Physician: Dr. Verdugo Attending Physician: Rosalia Howard MD Primary Care Provider: Dhruv Zapata MD History of Present Illness History of Present Illness Lolita Sellers is a 69 year old female who has a history of coronary artery disease with stents several years ago per patient, smoker, diabetic, history of hypertension, presented the emergency room with several days of nausea and vomiting. She states she saw her primary care doctor who diagnosed her with gastroenteritis. She came to the ER and apparently was mildly hypoxic. EKG showed some ST depression in the lateral leads. She denied any chest pain or back pain at this time. She states that her main complaint was neck pain. She described this as neck soreness. Her white cell was high at 21.79. Lactic acid was elevated at 5.8. Her creatinine was high at 9.7 with a severely low GFR. Trope at baseline was 69-54-54. May have UTI. Review of Systems 2 Narrative: Consitutional: denies fever, reports chills, reports body aches Card: Denies chest pain, palpitations, irregular heart rhythm, edema, syncope, shortness of breath, orthopnea, leg pain with exertion Resp: Denies shortness of breath, denies hemoptysis, denies cough GI:Reports nausea : denies blood in urine, denies dysuria Musc: reports neck tenderness and pain Skin: Denies rash, lesions, or wounds, denies changes to skin color Neuro: Denies nubmness in extremities, h/a, s/s of stroke Carlos: Denies easy bruiding/bleeding Medications/Allergies Home Medications ?Medication ?Instructions ?Recorded ?Confirmed ?Last Taken ?Type montelukast 10 mg tablet 10 mg PO QAM 05/07/2007/24/24 History (Singulair) omeprazole 40 mg capsule,delayed 40 mg PO QAM 05/07/20 03/07/25 07/24/24 History release budesonide-formoterol HFA 160 1 puff inhalation BID 03/07/25 07/24/24 History mcg-4.5 mcg/actuation aerosol inhaler (Symbicort) gabapentin 800 mg tablet 800 mg PO QID 01/20/2403/0707/24/24 History ropinirole 0.25 mg tablet 25 mg PO QPM 01/20/2407/23/24 History rosuvastatin 40 mg tablet 40 mg PO QPM 01/20/2407/23/24 History insulin aspart U-100 100 unit/mL See Rx Instructions . Route 02/07/24 03/07/25 07/24/24 Rx (3 mL) subcutaneous pen (Novolog .COMPLEX PRN Hypergly cemia #15 mL FlexPen U-100 Insulin aspart) clopidogrel 75 mg tablet 75 mg PO DAILY 05/10/24 04/08/2307/24/24 History sitagliptin phosphate 50 1 tab PO BID 08/18/24 Unknown History mg-metformin 500 mg tablet (Janumet) lisinopril 20 mg tablet 10 mg (1/2 x 20 mg) PO QAM # 45 tabs 12/04/24 03/07/25 Unknown Rx metoprolol tartrate 25 mg tablet 25 mg PO BID #90 tabs 12/04/24 03/07/25 Unknown Rx ondansetron 8 mg disintegrating 8 mg PO BID 03/07/25 0 03/07/25 Unknown History tablet tirzepatide 5 mg/0.5 mL 5 mg SUBCUT Q7D 03/07/2508/23 Unknown History subcutaneous pen injector (Mounjaro) Allergies Allergy/AdvReac Type Severity Reaction Status Date / Time oak Allergy Mild ALGY-Nasal Verified 02/26/25 15:11 Discharge Penicillins Allergy ALGY-Rash Verified 02/26/25 15:11 Current Medications Generic Name Dose Route Start Last Admin Trade Name Freq PRN Reason Stop Dose Admin Heparin Sodium (Porcine) 5,000 unit 03/07/25 16:00 03/07/25 16:40 Heparin 5,000 Unit/Ml Inj 1 Ml SUBCUT Not Given Q12H KENADLL Norepinephrine Bitartrate 4 mg in 250 mls @ 0 mls/hr 03/07/25 14:00 03/07/25 17:14 Levophed IV 8 mcg/min .Q0M KENDALL 30 mls/hr Titration Protocol Per Protocol Lactated Ringer's 1,000 mls @ 125 mls/hr 03/07/25 15:30 03/07/25 16:59 Lactated Ringers IV 50 mls/hr .Q8H KENDALL Infusion Meropenem 500 mg 03/07/25 16:00 03/07/25 16:43 Meropenem 500 Mg Sdv IVP 500 mg Q12H KENDALL Administration Protocol PFSH Acute 2 PFSH: Medical History Degenerative joint disease of spine GERD (gastroesophageal reflux disease) Tobacco abuse Essential hypertension COPD (chronic obstructive pulmonary disease) Myocardial infarction ASHD (arteriosclerotic heart disease) Dyslipidemia Diabetes 1.5, managed as type 2 Surgical History History of hand surgery Joint replacements both hands Status post tubal ligation Status post ORIF of fracture of ankle S/P PTCA (percutaneous transluminal coronary angioplasty) Family History Father Lung cancer Mother Heart attack Sister Cancer COVID-19 Other CAD (coronary artery disease) Diabetes Social History Smoking and tobacco/nicotine status: never used tobacco/nicotine Alcohol intake: current Alcohol intake frequency: holidays/special occasions only Substance/Drug Use: never Vitals/I&O/Wt Last Vital Signs Temp 97.5 F L 03/07/25 09:44 Pulse 104 H 03/07/25 17:00 Resp 19 H 03/07/25 17:00 BP 99/60 03/07/25 17:00 Pulse Ox 97 03/07/25 17:00 O2 Del Method Room Air 03/07/25 12:30 03/07/25 03/07/25 03/07/25 06:59 14:59 22:59 Intake Total 4189.127 / 4189.127 Balance 4189.127 / 4189.127 Weight last 48 hrs Weight 141 lb Physical Exam 2 Narrative: General: No apparent distress, healthy appearing, well nourished HENMT: normoceophalic Muskuloskeletal: Full ROM Respiratory: Normal respiratory effort, clear to auscultation bilaterally throughout all lung north, no use of accessory muscles Cardio: No JVD, regular rate, regular rhythm, S1 S2 normal, no murmurs, peripheral pulses 2+ radial palpated bilaterally Extremities: Full ROM, normal, normal capillary refill, no cyanosis or edema Neuro: Alert and oriented x4, no focal motor deficits Psych: Affect normal, denies suicidal ideation, mental status grossly normal Skin: No rashes or lesions noted, no wounds Urinary Catheter Management: Lundberg: Cath Placed During This Visit: yes Urinary Catheter Date of Insertion: 03/07/25 Data 03/07/25 10:12 03/07/25 10:12 Micro: Microbiology 03/07/25 11:05 Blood Culture - Preliminary Blood SPECIMEN COLLECTED 03/07/25 11:02 Blood Culture - Preliminary Blood SPECIMEN COLLECTED A&P Assessment and plan (1) Essential hypertension: (2) Leukocytosis: Qualifiers: Leukocytosis type: leukemoid reaction Qualified Code(s): D72.823 - Leukemoid reaction (3) Elevated troponin: Plan At this time, patient appears to be in sepsis. She is requiring pressors for blood pressure support. Troponins are elevated, which could be due to sepsis and type II demand ischemia. She has severe renal failure. Once patient has recovered, may consider stress test. At this time, will continue to medically manage. Agree with heparin. Should continue home Plavix medication, hold statin for now due to severe liver dysfunction. Thank you for allowing us to care for this very pleasant 69 year old female. PDMP PDMP Reviewed: Not Reviewed Coding Level of Care Code Acute Code for [facility] Diagnoses Essential hypertension I10 Leukemoid reaction D72.823 Leukocytosis type: leukemoid reaction Elevated troponin R79.89
[2025-03-07 17:45] LABS: Anion Gap 31.5 (5-19); Blood Urea Nitrogen 62 mg/dL (8-23); Calcium 8.7 mg/dL (8.5-10.5); Chloride 97 mmol/L (98-107); Creatinine Clr Calc Pharmacy 5.1104; Glomerular Filtration Rate 4.4 mL/min (90-130); Glucose 238 mg/dL (65-115); Osmolality Calculated 295 mOsm/kg (285-295); Potassium 5.5 mmol/L (3.5-5.1); Sodium 130 mmol/L (136-145)
[2025-03-07 17:47] LABS: Carbon Dioxide 7 mmol/L (22-29)
[2025-03-07] MEDS: pantoprazole 40 mg SDV IVP (18:24)
--- NOTE | 2025-03-07 18:29 | PC.NURSE ---
Patient arrived to ICU at 1814. Personal purse sent home with
--- NOTE | 2025-03-07 20:45 | PM.CONSULT ---
Providers/Reason For Consult Consulting Physician/Specialty*: Dr. Velasquez general surgery Reason for Consult*: Temporary dialysis catheter placement Attending Physician: Rosalia Howard MD Primary Care Provider: Dhruv Zapata MD History of Present Illness History of Present Illness Lolita Sellers is a 69 year old female who presents with multiple medical problems including acute renal failure. Surgery consulted for emergent dialysis for catheter placement. Medications/Allergies Home Medications ?Medication ?Instructions ?Recorded ?Confirmed ?Last Taken ?Type montelukast 10 mg tablet 10 mg PO QAM 05/07/20 03/07/25 07/24/24 History (Singulair) omeprazole 40 mg capsule,delayed 40 mg PO QAM 05/07/20 03/07/25 07/24/24 History release budesonide-formoterol HFA 160 1 puff inhalation BID 01/20/24 03/07/25 07/24/24 History mcg-4.5 mcg/actuation aerosol inhaler (Symbicort) gabapentin 800 mg tablet 800 mg PO QID 01/20/24 03/07/25 07/24/24 History ropinirole 0.25 mg tablet 25 mg PO QPM 01/20/24 03/07/25 07/23/24 History rosuvastatin 40 mg tablet 40 mg PO QPM 01/20/24 03/07/25 07/23/24 History insulin aspart U-100 100 unit/mL See Rx Instructions .Route 02/07/24 03/07/25 07/24/24 Rx (3 mL) subcutaneous pen (Novolog .COMPLEX PRN Hyperglycemia #15 mL FlexPen U-100 Insulin aspart) clopidogrel 75 mg tablet 75 mg PO DAILY 05/10/24 03/07/25 07/24/24 History sitagliptin phosphate 50 1 tab PO BID 08/18/24 03/07/25 Unknown History mg-metformin 500 mg tablet (Janumet) lisinopril 20 mg tablet 10 mg (1/2 x 20 mg) PO QAM #45 tabs 12/04/24 03/07/25 Unknown Rx metoprolol tartrate 25 mg tablet 25 mg PO BID #90 tabs 12/04/24 03/07/25 Unknown Rx ondansetron 8 mg disintegrating 8 mg PO BID 03/07/25 03/07/25 Unknown History tablet tirzepatide 5 mg/0.5 mL 5 mg SUBCUT Q7D 03/07/25 03/07/25 Unknown History subcutaneous pen injector (Mounjaro) Allergies Allergy/AdvReac Type Severity Reaction Status Date / Time oak Allergy Mild ALGY-Nasal Verified 02/26/25 15:11 Discharge Penicillins Allergy ALGY-Rash Verified 02/26/25 15:11 Current Medications Generic Name Dose Route Start Last Admin Trade Name Freq PRN Reason Stop Dose Admin Heparin Sodium (Porcine) 5,000 unit 03/07/25 16:00 03/07/25 16:40 Heparin 5,000 Unit/Ml Inj 1 Ml SUBCUT Not Given Q12H KENDALL Norepinephrine Bitartrate 4 mg in 250 mls @ 0 mls/hr 03/07/25 14:00 03/07/25 17:14 Levophed IV 8 mcg/min .Q0M KENDALL 30 mls/hr Titration Protocol Per Protocol Meropenem 500 mg 03/07/25 16:00 03/07/25 16:43 Meropenem 500 Mg Sdv IVP 500 mg Q12H KENDALL Administration Protocol Pantoprazole Sodium 40 mg 03/07/25 18:00 03/07/25 18:24 Pantoprazole 40 Mg Sdv IVP 40 mg BID KENDALL Administration PFSH Acute PFSH: Medical History Degenerative joint disease of spine GERD (gastroesophageal reflux disease) Tobacco abuse Essential hypertension COPD (chronic obstructive pulmonary disease) Myocardial infarction ASHD (arteriosclerotic heart disease) Dyslipidemia Diabetes 1.5, managed as type 2 Surgical History History of hand surgery Joint replacements both hands Status post tubal ligation Status post ORIF of fracture of ankle S/P PTCA (percutaneous transluminal coronary angioplasty) Family History Father Lung cancer Mother Heart attack Sister Cancer COVID-19 Other CAD (coronary artery disease) Diabetes Social History Smoking and tobacco/nicotine status: never used tobacco/nicotine Alcohol intake: current Alcohol intake frequency: holidays/special occasions only Substance/Drug Use: never Vitals/I&O/Wt Last Vital Signs Temp 97.5 F L 03/07/25 09:44 Pulse 98 03/07/25 18:18 Resp 18 03/07/25 18:05 BP 92/52 03/07/25 18:18 Pulse Ox 98 03/07/25 18:18 O2 Del Method Room Air 03/07/25 18:22 03/07/25 03/07/25 03/07/25 06:59 14:59 22:59 Intake Total 4681.627 / 4681.627 Balance 4681.627 / 4681.627 Weight last 48 hrs Weight 158 lb 11.725 oz Weight 141 lb Physical Exam Narrative: Chest: Unlabored breathing room air. No lymphadenopathy. Heart: Regular rate and rhythm. Abdomen: Soft, nontender, nondistended. No masses or lymphadenopathy. Urinary Catheter Management: Lundberg: Cath Placed During This Visit: yes Reason for Continuing Indwelling Catheter: Accurate Measurement of Urinary Output in Critically Ill Patients Urinary Catheter Date of Insertion: 03/07/25 Data 03/07/25 10:12 03/07/25 17:19 Micro: Microbiology 03/07/25 11:05 Blood Culture - Preliminary Blood SPECIMEN COLLECTED 03/07/25 11:02 Blood Culture - Preliminary Blood SPECIMEN COLLECTED A&P Assessment and plan (1) Acute renal failure: Plan 69-year-old female in acute renal failure. Surgery consulted for temporary dialysis catheter placement for emergent dialysis. Discussed risk and benefits the patient agreed to proceed with temporary dialysis catheter placement. PDMP PDMP Reviewed: Not Reviewed Coding Level of Care Code 81055 Diagnoses Acute renal failure N17.9
--- NOTE | 2025-03-07 20:47 | PM.ACPR ---
Procedure/Consent Consent: Consent for Procedure: Consent obtained from patient Procedure Narrative: Consent was obtained. Patient was laid supine. The right groin was prepped and draped in the usual sterile fashion. Ultrasound was used to identify the right common femoral vein. A finder needle was used to access the left common femoral vein. A wire was threaded through the finder needle. Adequate placement of the wire in the right common femoral vein was confirmed with ultrasound. A small stab incision was carried out over the wire. The tract was dilated in a serial fashion. A 20 cm temporary dialysis catheter was placed using the Seldinger technique. I was able to flush and draw blood easily from both lumens. The catheter was secured in place with suture. A sterile dressing was applied. Catheter is ready for immediate use.
[2025-03-07] MEDS: sodium bicarbonate 8.4% 1 mEq/mL 50mL Syr 100 MEQ IVP (20:58)
[2025-03-07] MEDS: citric acid-sodium citrate 30 mL UDC 60 ML PO (20:58)
[2025-03-07] MEDS: calcium gluconate 0.1 gm/mL 10% SDV 10mL 1 GM IVP (20:59)
[2025-03-07] MEDS: heparin, porcine 1,000 unit/mL INJ 10 mL 1000 UNIT IV (22:00)
[2025-03-07 22:31] LABS: Anion Gap 32.3 (5-19); Blood Urea Nitrogen 49 mg/dL (8-23); Calcium 7.5 mg/dL (8.5-10.5); Carbon Dioxide 11 mmol/L (22-29); Chloride 93 mmol/L (98-107); Creatinine Clr Calc Pharmacy 6.7858; Glomerular Filtration Rate 5.7 mL/min (90-130); Glucose 258 mg/dL (65-115); Osmolality Calculated 296 mOsm/kg (285-295); Potassium 4.3 mmol/L (3.5-5.1); Sodium 132 mmol/L (136-145)
[2025-03-07 23:23] LABS: Hepatitis B Surface AB 3.7 (11.5-1000); Hepatitis B Surface Antigen Non-Reactive (Nonreactive)
[2025-03-07] MEDS: norepinephrine 4 MG/250 ML BAG 37.5 MG IV (23:31)
[2025-03-08] VITALS (148 sets, daily range): BP systolic 76–145; BP diastolic 43–91; PULSE 91–115; RESP 13–30; TEMP 36.4–36.8; O2SAT 85–100
[2025-03-08 04:27] LABS: Basophils # 0.1 10^3/uL (0.0-0.1); Basophils % 0.4 %; Hematocrit 31.5 % (36-47); Lymphocytes % 12.4 %; Mean Corpuscular HGB Conc 32.7 g/dL (30-55); Mean Corpuscular Volume 88.7 fl (85-98); Mean Platelet Volume 11.5 fL (7.4-10.4); Monocytes # 1.5 10^3/uL (0.2-0.9); Monocytes % 9.3 %; Neutrophils % 77.4 %; Nucleated Red Blood Cells % 0 %; Platelet Count 215 10^3/cmm (157-399); Red Blood Count 3.55 10^6/uL (3.85-5.65); Red Cell Distribution Width 14.9 % (12.1-15.1); White Blood Count 16.15 10^3/uL (3.29-11.43)
[2025-03-08] MEDS: heparin 5,000 unit/mL INJ 1 mL 5000 UNIT SUBCUT ×2 (04:37→15:54)
[2025-03-08] MEDS: meropenem 500 mg SDV IVP (04:37)
[2025-03-08 04:39] LABS: INR 1.23 (0.8-1.2)
[2025-03-08 04:49] LABS: Alanine Aminotransferase 393 U/L (0-33); Albumin Level 2.8 g/dL (3.5-5.2); Alkaline Phosphatase 313 U/L (35-105); Anion Gap 34.3 (5-19); Aspartate Amino Transferase 634 U/L (0-32); Blood Urea Nitrogen 33 mg/dL (8-23); Calcium 7.4 mg/dL (8.5-10.5); Carbon Dioxide 12 mmol/L (22-29); Chloride 97 mmol/L (98-107); Creatinine Clr Calc Pharmacy 8.5113; Globulin 2.6 g/dL (1.3-4.6); Glomerular Filtration Rate 7.4 mL/min (90-130); Glucose 164 mg/dL (65-115); Magnesium 1.9 mg/dL (1.7-2.3); Osmolality Calculated 301 mOsm/kg (285-295); Potassium 3.3 mmol/L (3.5-5.1); Sodium 140 mmol/L (136-145); Total Bilirubin 0.6 mg/dL (0.15-1.2); Total Protein 5.4 g/dL (6.6-8.7)
[2025-03-08] MEDS: norepinephrine 4 MG/250 ML BAG 22.5 MG IV (06:44)
[2025-03-08] MEDS: morphine 4 mg/mL SDV 1 mL 2 MG IVP (08:27)
[2025-03-08] MEDS: pantoprazole 40 mg SDV IVP ×2 (08:27→18:13)
[2025-03-08] MEDS: clopidogrel 75 mg Tablet PO (08:27)
--- NOTE | 2025-03-08 08:30 | USCV_ITS ---
Marlo Lolita Age: 69 Gender: F : 1955 Exam Date: 03/08/2025 15:13 Ordering Phys: Ariadna Dunham NP Technologist: ANH Exam Location: [facility] – [place] Indication: BP: 121 / 61 HR: 103 Rhythm: Sinus Technical Quality: MEASUREMENTS (Male / Female) Normal Values 2D ECHO LV Diastolic Diameter PLAX 4.9 cm 4.2 - 5.9 / 3.9 - 5.3 cm IVS Diastolic Thickness 1.2 cm 0.6 - 1.0 / 0.6 - 0.9 cm IVS Systolic Thickness 1.2 cm LVPW Diastolic Thickness 1.2 cm 0.6 - 1.0 / 0.6 - 0.9 cm LVPW Systolic Thickness 1.7 cm LVOT Diameter 2.0 cm LV Ejection Fraction 2D Teich 63.6 % LV Ejection Fraction MOD 4C 72.6 % LV Ejection Fraction MOD 2C 60.0 % LV Ejection Fraction 2C AL 60.1 % LA Diameter 2.8 cm RA Systolic Volume 4C AL 32.7 ml RA Systolic Volume 4C MOD 30.9 ml LA Sys Volume AL 35.1 cm cubed LA Sys Volume Index AL 20.0 cm cubed/m squared Aorta at Sinotubular Diameter 2.3 cm IVC Diameter 1.7 cm M-MODE LA Ao Ratio MM 2.0 AV Cusp Separation MM 1.7 cm DOPPLER AV Peak Velocity 176.0 cm/s LVOT Peak Velocity 142.0 cm/s AV Area Cont Eq vti 1.7 cm squared AV Area Cont Eq pk 2.6 cm squared MV Peak Velocity 144.0 cm/s MV Area PHT 4.4 cm squared Mitral E to A Ratio 1.1 TV Peak Velocity 323.5 cm/s TR Peak Velocity 378.0 cm/s TR Peak Gradient 57.2 mmHg TV Peak E Velocity 85.0 cm/s PV Peak Velocity 120.0 cm/s FINDINGS Left Ventricle Normal left ventricular size, systolic function and wall thickness, with no regional wall motion abnormalities.moderate left ventricular hypertrophy. Left ventricular ejection fraction is estimated at 60 %. Grade II/IV diastolic dysfunction, moderately elevated filling pressures. Right Ventricle The right ventricle is normal in size and function. Right Atrium The right atrium is normal in size. Left Atrium The left atrium is normal in size. Mitral Valve Moderately thickened mitral valve. Mild mitral annular calcification. No mitral valve stenosis. Trace mitral valve regurgitation. Aortic Valve Moderate aortic valve calcification. No aortic valve stenosis. Trace aortic valve regurgitation. Tricuspid Valve Structurally normal tricuspid valve without significant stenosis or regurgitation. Pulmonary artery systolic pressure is normal. Pulmonic Valve Structurally normal pulmonic valve without significant stenosis. There is no pulmonic regurgitation. Pericardium Normal pericardium without effusion. Aorta Normal ascending aorta dimension. IVC The inferior vena cava appears normal. CONCLUSIONS Normal left ventricular size, systolic function and wall thickness, with no regional wall motion abnormalities.moderate left ventricular hypertrophy. Left ventricular ejection fraction is estimated at 60 %. Grade II/IV diastolic dysfunction, moderately elevated filling pressures. Moderately thickened mitral valve. Mild mitral annular calcification. No mitral valve stenosis. Trace mitral valve regurgitation. Moderate aortic valve calcification. No aortic valve stenosis. Trace aortic valve regurgitation. There is no pericardial effusion. Right atrial pressure is around 5 mm of mercury. Rojelio Phillips MD (Electronically Signed) Final Date: 08 March 2025 22:19 S
[2025-03-08] MEDS: sodium bicarbonate 150 MEQ in dextrose 5% 1,000 ML 100 MEQ IV ×2 (09:55→18:16)
--- NOTE | 2025-03-08 10:18 | P.PN_ITS ---
Subjective 2 Subjective: Patient feels better, status post HD yesterday, tolerated well Medications: Reviewed: Yes Vitals/I&O/Wt Last Vital Signs Temp 98.3 F 03/08/25 09:15 Pulse 103 H 03/08/25 10:00 Resp 18 03/08/25 08:27 BP 112/63 03/08/25 10:00 Pulse Ox 98 03/08/25 10:00 O2 Del Method Nasal Cannula 03/08/25 10:00 O2 Flow Rate 3 03/08/25 10:00 03/07/25 03/08/25 03/08/25 22:59 06:59 14:59 Intake Total 4831.627 / 4831.627 869.375 / 5701.002 480 / 480 Output Total 500 / 500 Balance 4831.627 / 4831.627 369.375 / 5201.002 480 / 480 Weight last 48 hrs Weight 70 kg Weight 73 kg Weight 72 kg Weight 63.957 kg Physical Exam 2 Narrative: Patient is awake alert, no distress, on 2 L O2 by nasal cannula PERRLA S1-S2 regular rate and rhythm per report Lungs clear bilaterally per report Abdomen soft nontender per report No pedal edema Urinary Catheter Management: Lundberg: Cath Placed During This Visit: yes Reason for Continuing Indwelling Catheter: Accurate Measurement of Urinary Output in Critically Ill Patients Urinary Catheter Date of Insertion: 03/07/25 Data 03/08/25 04:15 03/08/25 04:15 Micro: Microbiology 03/07/25 13:03 Urine Culture - Preliminary Urine,Clean Catch 03/07/25 11:05 Blood Culture - Preliminary Blood SPECIMEN COLLECTED 03/07/25 11:02 Blood Culture - Preliminary Blood SPECIMEN COLLECTED A&P Assessment and plan (1) Acute renal failure: Plan 1. Acute kidney injury superimposed on CKD stage III: Baseline creatinine in the 1.1-1.2 range, last in August 2024. Now has severe CARLOS with a creatinine of 9.7 and associated with severe metabolic acidosis. Patient anuric. Despite bicarbonate drip and IV fluid resuscitation her metabolic acidosis has not improved and discussed with patient regarding temporary dialysis. Temporary HD catheter was placed and plan to initiated HD. -Will check renal ultrasound , urine electrolytes, serologies -HD again today, as acidosis has not improved much and patient remains anuric 2. Severe metabolic acidosis: With anion gap, likely in the setting of sepsis and CARLOS. HD as above 3. Sepsis likely pyelonephritis, further workup pending 4. Shock, hypotension, on pressors 5. History of coronary artery disease 6. Shock liver in the setting of sepsis, Patient evaluated using audiovisual cart. Time spent 40-minutes PDMP PDMP Reviewed: Not Reviewed Attestations 2 Medical Necessity Statement*: Per medicine team Coding Level of Care Code Acute Code for [facility] Diagnoses Acute renal failure N17.9
--- NOTE | 2025-03-08 10:31 | P.PN_ITS ---
<Statement entered by Rojelio Phillips MD - 03/08/25 23:09> Patient was evaluated and cared for in conjunction with an advanced practice practitioner. I personally examined the patient and reviewed the chart and all pertinent data including imaging, telemetry, and laboratory results. I discussed the patient in detail with the advanced practice practitioner. Please see their note for complete H&P testing result and agreed upon plan of care for the patient. Patient denies chest pain she says she is feeling better appeared to be tachycardic GENERAL: Patient is alert, awake and oriented x3. HEART: Regular S1 and S2. No murmur, rub or gallop. LUNGS: Decreased breath sound but no crackles e bilaterally. CENTRAL NERVOUS SYSTEM: Grossly nonfocal. Assessment and plan Septic shock Type II non-ST elevation MT Normal left ventricle ejection fraction by echo no wall motion abnormality Continue current management Subjective 2 Subjective: Patient denies any chest pain. She states she has a sore neck still but denies chest, back, shoulder, or jaw pain. Currently on heparin drip and Levo @6. She appearrs comfortable and well compensated. Vitals/I&O/Wt Last Vital Signs Temp 98.3 F 03/08/25 09:15 Pulse 103 H 03/08/25 10:00 Resp 18 03/08/25 08:27 BP 112/63 03/08/25 10:00 Pulse Ox 98 03/08/25 10:00 O2 Del Method Nasal Cannula 03/08/25 10:00 O2 Flow Rate 3 03/08/25 10:00 03/07/25 03/08/25 03/08/25 22:59 06:59 14:59 Intake Total 4831.627 / 4831.627 869.375 / 5701.002 480 / 480 Output Total 500 / 500 Balance 4831.627 / 4831.627 369.375 / 5201.002 480 / 480 Weight last 48 hrs Weight 154 lb 5.177 oz Weight 160 lb 14.999 oz Weight 158 lb 11.725 oz Weight 141 lb Physical Exam 2 Narrative: General: No apparent distress, healthy appearing, well nourished HENMT: normoceophalic Muskuloskeletal: Full ROM Respiratory: Normal respiratory effort, clear to auscultation bilaterally throughout all lung north, no use of accessory muscles Cardio: No JVD, regular rate, regular rhythm, S1 S2 normal, no murmurs, peripheral pulses 2+ radial palpated bilaterally Extremities: Full ROM, normal, normal capillary refill, no cyanosis or edema Neuro: Alert and oriented x4, no focal motor deficits Psych: Affect normal, denies suicidal ideation, mental status grossly normal Skin: No rashes or lesions noted, no wounds Urinary Catheter Management: Lundberg: Cath Placed During This Visit: yes Reason for Continuing Indwelling Catheter: Accurate Measurement of Urinary Output in Critically Ill Patients Urinary Catheter Date of Insertion: 03/07/25 Data 03/08/25 04:15 03/08/25 04:15 Micro: Microbiology 03/07/25 13:03 Urine Culture - Preliminary Urine,Clean Catch 03/07/25 11:05 Blood Culture - Preliminary Blood SPECIMEN COLLECTED 03/07/25 11:02 Blood Culture - Preliminary Blood SPECIMEN COLLECTED A&P Assessment and plan (1) Essential hypertension: (2) Leukocytosis: Qualifiers: Leukocytosis type: leukemoid reaction Qualified Code(s): D72.823 - Leukemoid reaction (3) Elevated troponin: Plan Will hold off on beta blockers at this time due to patient is requiring pressors for blood pressure support. Continue current care. Will look at echo once read and further recommendations to follow. At this time, patient is well compensated. PDMP PDMP Reviewed: Not Reviewed Attestations 2 Medical Necessity Statement*: Deferred to primary. Coding Level of Care Code Acute Code for [facility] Fwd Diagnoses Essential hypertension I10 Leukemoid reaction D72.823 Leukocytosis type: leukemoid reaction Elevated troponin R79.89
[2025-03-08] MEDS: heparin, porcine 1,000 unit/mL INJ 10 mL 1000 UNIT IV (11:50)
--- NOTE | 2025-03-08 14:45 | P.PN_ITS ---
Subjective 2 Subjective: Seen this morning. Patient resting comfortably in bed with family ember at bedside. WBC count 16,000 this morning, hemoglobin 10.3, bicarb is improved to 12. Patient did have 1 dialysis session overnight. Potassium 3.3 this morning. She is actively undergoing another dialysis session at this time. Delta troponin negative at 6 hours. Patient is tolerating clears. She is still on Levophed 6 mics. Vitals/I&O/Wt Last Vital Signs Temp 97.5 F L 03/08/25 12:03 Pulse 106 H 03/08/25 12:15 Resp 18 03/08/25 12:03 BP 128/63 03/08/25 12:15 Pulse Ox 94 03/08/25 12:15 O2 Del Method Room Air 03/08/25 12:15 O2 Flow Rate 3 03/08/25 10:00 03/07/25 03/08/25 03/08/25 22:59 06:59 14:59 Intake Total 4831.627 / 4831.627 869.375 / 5701.002 742.125 / 742.125 Output Total 500 / 500 Balance 4831.627 / 4831.627 369.375 / 5201.002 742.125 / 742.125 Weight last 48 hrs Weight 70 kg Weight 73 kg Weight 72 kg Weight 63.957 kg Physical Exam 2 Narrative: Patient is awake and alert AO x 4 GCS 15 No cellulitis S1, S2 Right-sided central line in place right IJ Nontender abdomen Lundberg catheter in place with cloudy urine sediments noted Patient eating ice when seen. Alert oriented x 4. Lungs clear to auscultation bilaterally Abdomen soft nontender at bedside. Denies neck pain at this time. Undergoing dialysis at this time. Urinary Catheter Management: Lundberg: Cath Placed During This Visit: yes Reason for Continuing Indwelling Catheter: Accurate Measurement of Urinary Output in Critically Ill Patients Urinary Catheter Date of Insertion: 03/07/25 Data 03/08/25 04:15 03/08/25 04:15 Micro: Microbiology 03/07/25 11:05 Blood Culture - Preliminary Blood NEGATIVE TO DATE 03/07/25 11:02 Blood Culture - Preliminary Blood NEGATIVE TO DATE 03/07/25 13:03 Urine Culture - Preliminary Urine,Clean Catch A&P Assessment and plan (1) Septic shock: (2) DM2 (diabetes mellitus, type 2): (3) Sepsis: (4) Shock: (5) Transaminitis: (6) Urinary tract infection: (7) Acute pyelonephritis: (8) Acute renal failure: (9) Dehydration: (10) Essential hypertension: (11) Acute renal failure: Plan Septic shock Criteria met with tachypnea tachycardia leukocytosis high lactic acid with endorgan damage Septic bolus to be administered Initiation of meropenem secondary to UTI Previous urine culture showed sensitivity to penicillin and cephalosporins Patient currently requiring Levophed Right IJ in place Severe metabolic acidosis with acute renal failure Lundberg catheter has been placed No signs of hydronephrosis Concern for development of ATN, patient has been sick for last 7 days he has been taking her antihypertensive regimen as well Bicarb drip to be initiated Admit to ICU BMP every 12 hours Acute renal failure Currently on bicarb drip Nephrology consulted No acute indication for dialysis Stop nephrotoxic agents Sepsis induced cardiomyopathy History of established coronary disease no active chest pain EKG with dynamic changes, patient not complain of chest pain: Troponin trending down despite acute renal failure likely related to demand ischemia Evaluated by cardiology Continue Plavix As per the patient last stent in 2019 Shock liver Cholecystostomy tube will be considered if patient starts showing signs of cholecystitis Type 2 diabetes, will advance to consistent carb diet, insulin sliding scale, A1c is 12.3 If her bicarb does not improve she may need dialysis overnight Will follow-up with repeat labs Full code Admit to ICU DVT prophylaxis: Heparin 03/08/2025 CBC CMP twice daily. Bicarb drip as per nephrology. Continue on bank and meropenem. Renally dosed. Patient undergoing dialysis for severe acidosis as refractory. Patient did have evidence of shock liver with elevated liver enzymes which are trending down slowly. Will continue to check labs twice a day. She is still requiring Levophed which is secondary to severe acidosis. I hope once acidosis improves Levophed requirement will also reduce. Continue to treat for UTI. Await urine culture, blood culture Continue clear liquids. Would not advance diet till Levophed requirement comes down. Patient is okay to have ice chips and water. PDMP PDMP Reviewed: Not Reviewed Attestations 2 Medical Necessity Statement*: Critically ill with acute renal failure in the ICU. Diagnoses Septic shock A41.9; R65.21 DM2 (diabetes mellitus, type 2) E11.9 Sepsis A41.9 Shock R57.9 Transaminitis R74.01 Urinary tract infection N39.0 Acute pyelonephritis N10 Acute renal failure N17.9 Dehydration E86.0 Essential hypertension I10
[2025-03-08 15:31] LABS: Basophils % 0.2 %; Eosinophils % 0.1 %; Hematocrit 29.9 % (36-47); Lymphocytes # 1.7 10^3/uL (0.8-4.8); Lymphocytes % 12.1 %; Mean Corpuscular HGB Conc 33.8 g/dL (30-55); Mean Corpuscular Hemoglobin 28.7 pg (27-33); Mean Corpuscular Volume 84.9 fl (85-98); Mean Platelet Volume 11.5 fL (7.4-10.4); Monocytes # 1.2 10^3/uL (0.2-0.9); Monocytes % 8.5 %; Neutrophils # 10.79 10^3/uL (1.8-7.7); Neutrophils % 78.7 %; Nucleated Red Blood Cells % 0 %; Platelet Count 183 10^3/cmm (157-399); Red Blood Count 3.52 10^6/uL (3.85-5.65); Red Cell Distribution Width 15.2 % (12.1-15.1); White Blood Count 13.73 10^3/uL (3.29-11.43)
--- NOTE | 2025-03-08 15:31 | P.PN_ITS ---
Subjective 2 Subjective: LFTs up On levo Vitals/I&O/Wt Last Vital Signs Temp 97.7 F 03/08/25 15:20 Pulse 98 03/08/25 15:20 Resp 18 03/08/25 15:20 BP 127/81 03/08/25 15:20 Pulse Ox 97 03/08/25 14:45 O2 Del Method Room Air 03/08/25 14:45 O2 Flow Rate 3 03/08/25 10:00 03/08/25 03/08/25 03/08/25 06:59 14:59 22:59 Intake Total 869.375 / 5701.002 742.125 / 742.125 600 / 1342.125 Output Total 500 / 500 600 / 600 Balance 369.375 / 5201.002 742.125 / 742.125 0 / 742.125 Weight last 48 hrs Weight 156 lb 8.451 oz Weight 154 lb 5.177 oz Weight 160 lb 14.999 oz Weight 158 lb 11.725 oz Weight 141 lb Physical Exam 2 Narrative: RRR Unlabored breathing RA Abdomen soft, nt, nd R groin - dialysis catheter in place Urinary Catheter Management: Lundberg: Cath Placed During This Visit: yes Reason for Continuing Indwelling Catheter: Accurate Measurement of Urinary Output in Critically Ill Patients Urinary Catheter Date of Insertion: 03/07/25 Data 03/09/25 15:00 03/09/25 15:00 Micro: Microbiology 03/07/25 11:05 Blood Culture - Preliminary Blood NEGATIVE TO DATE 03/07/25 11:02 Blood Culture - Preliminary Blood NEGATIVE TO DATE 03/07/25 13:03 Urine Culture - Preliminary Urine,Clean Catch A&P Assessment and plan (1) Shock liver: (2) Acute pyelonephritis: Plan 69yo female with pyelonephritis & septic shock. LFT elevation due to shock liver. Dialysis catheter working. PDMP PDMP Reviewed: Not Reviewed Attestations 2 Medical Necessity Statement*: NA Coding Level of Care Code 54689 Diagnoses Shock liver K72.00 Acute pyelonephritis N10
[2025-03-08 15:47] LABS: Alanine Aminotransferase 368 U/L (0-33); Albumin Level 2.9 g/dL (3.5-5.2); Alkaline Phosphatase 276 U/L (35-105); Anion Gap 22.3 (5-19); Aspartate Amino Transferase 610 U/L (0-32); Blood Urea Nitrogen 14 mg/dL (8-23); Calcium 7.5 mg/dL (8.5-10.5); Carbon Dioxide 21 mmol/L (22-29); Chloride 98 mmol/L (98-107); Globulin 2.6 g/dL (1.3-4.6); Glomerular Filtration Rate 15.5 mL/min (90-130); Glucose 209 mg/dL (65-115); Magnesium 1.8 mg/dL (1.7-2.3); Osmolality Calculated 293 mOsm/kg (285-295); Phosphorus 3.1 mg/dL (2.5-4.5); Potassium 3.3 mmol/L (3.5-5.1); Sodium 138 mmol/L (136-145); Total Bilirubin 0.4 mg/dL (0.15-1.2); Total Protein 5.5 g/dL (6.6-8.7)
[2025-03-09] VITALS (100 sets, daily range): BP systolic 76–144; BP diastolic 43–101; PULSE 90–117; RESP 0–39; TEMP 36.6–37.7; O2SAT 88–100
[2025-03-09 00:05] LABS: Glucose Point of Care 247 mg/dL (70-110)
--- NOTE | 2025-03-09 00:07 | XRR_ITS ---
PROCEDURE INFORMATION: Exam: XR Chest Exam date and time: 03/09/2025 12:18 AM Age: 69 years old Clinical indication: Shortness of breath and wheezing; Additional info: Coarse lung sounds TECHNIQUE: Imaging protocol: Radiologic exam of the chest. Views: 1 view. COMPARISON: CR XR chest 1V portable [id number] 03/07/2025 2:49 PM FINDINGS: Tubes, catheters and devices: There is stable placement of a right internal jugular vein central venous line. Lungs: There is mild prominence of the central pulmonary vasculature. There are patchy opacities present in the right lung base possibly representing atelectasis. A right basilar infiltrate and pneumonia can not be entirely excluded. There are linear and interstitial opacities present in the left mid and lower hemithorax that may represent atelectasis. However mild prominence of the pulmonary vasculature could suggest pulmonary edema as well. Pleural spaces: Unremarkable. No pleural effusion. No pneumothorax. Heart/Mediastinum: Unremarkable. No cardiomegaly. Bones/joints: Unremarkable. XR/XR chest 1V portable [id number] IMPRESSION: Are increased linear and patchy opacities the lower raudel thoraces bilaterally and some slightly increased interstitial opacity seen in the left mid and lower hemithorax. Mild prominence of the pulmonary vasculature seen. These findings could represent combined atelectasis and pulmonary edema.
[2025-03-09] MEDS: oxyCODONE-APAP 5-325 mg Tablet 1 TAB PO (00:24)
[2025-03-09] MEDS: insulin lispro 100 unit/1 mL SUBCUT ×5 (00:25→21:04)
--- NOTE | 2025-03-09 00:35 | PC.NURSE ---
Physician Communication Patient's blood glucose 247 and patient complaining of shoulder pain at a 5 on a numerical 1-10 scale. Furthermore, patient's oxygen saturation decreased into the low-high 80s. Coarse lung sounds in bilateral bases and moist cough now noted. Nasal cannula placed on patient at 2L. Dr. Pugh notified, sepsis diagnosis with liver and kidney involvement discussed; orders received for medium sliding scale insulin, percocet 5-325 PRN Q4H for pain, hold sodium bicarb, and obtain chest xray. Additionally, message left for Dr. Salgado regarding sodium bicarb drip being placed on hold.
[2025-03-09 03:53] LABS: Basophils % 0.4 %; Eosinophils # 0.2 10^3/uL (0.0-0.8); Eosinophils % 2.1 %; Hematocrit 28.2 % (36-47); Lymphocytes # 1.7 10^3/uL (0.8-4.8); Lymphocytes % 16.3 %; Mean Corpuscular HGB Conc 33.7 g/dL (30-55); Mean Corpuscular Hemoglobin 29.1 pg (27-33); Mean Corpuscular Volume 86.2 fl (85-98); Mean Platelet Volume 11.2 fL (7.4-10.4); Monocytes # 0.8 10^3/uL (0.2-0.9); Neutrophils # 7.39 10^3/uL (1.8-7.7); Neutrophils % 72.5 %; Nucleated Red Blood Cells % 0 %; Platelet Count 139 10^3/cmm (157-399); Red Blood Count 3.27 10^6/uL (3.85-5.65); White Blood Count 10.19 10^3/uL (3.29-11.43)
[2025-03-09 04:15] LABS: Alanine Aminotransferase 341 U/L (0-33); Albumin Level 2.8 g/dL (3.5-5.2); Alkaline Phosphatase 275 U/L (35-105); Anion Gap 17.8 (5-19); Aspartate Amino Transferase 676 U/L (0-32); Blood Urea Nitrogen 20 mg/dL (8-23); Calcium 7.4 mg/dL (8.5-10.5); Carbon Dioxide 26 mmol/L (22-29); Chloride 96 mmol/L (98-107); Creatinine Clr Calc Pharmacy 10.8737; Globulin 2.8 g/dL (1.3-4.6); Glomerular Filtration Rate 9.9 mL/min (90-130); Glucose 147 mg/dL (65-115); Osmolality Calculated 289 mOsm/kg (285-295); Phosphorus 3.1 mg/dL (2.5-4.5); Sodium 137 mmol/L (136-145); Total Bilirubin 0.4 mg/dL (0.15-1.2); Total Protein 5.6 g/dL (6.6-8.7)
[2025-03-09] MEDS: meropenem 500 mg SDV IVP (04:23)
[2025-03-09] MEDS: heparin 5,000 unit/mL INJ 1 mL 5000 UNIT SUBCUT ×2 (04:24→16:07)
[2025-03-09 04:39] LABS: Potassium 2.8 mmol/L (3.5-5.1)
--- NOTE | 2025-03-09 04:53 | PC.NURSE ---
Potassium Dr. Pugh notified of patient's critical potassium level 2.8. Patient's kidney function discussed and order received for 40 meq IV KCL once.
[2025-03-09] MEDS: lidocaine 1% 5 ML in potassium chloride premix 100 ML 26.25 ML IV ×3 (05:29→21:55)
[2025-03-09 07:57] LABS: Glucose Point of Care 163 mg/dL (70-110)
[2025-03-09] MEDS: clopidogrel 75 mg Tablet PO (08:02)
[2025-03-09] MEDS: pantoprazole 40 mg SDV IVP ×2 (08:02→17:23)
[2025-03-09] MEDS: norepinephrine 4 MG/250 ML BAG 7.5 MG IV (08:09)
--- NOTE | 2025-03-09 08:28 | P.PN_ITS ---
Subjective 2 Subjective: on low dose pressors Medications: Reviewed: Yes Vitals/I&O/Wt Last Vital Signs Temp 98.0 F 03/09/25 08:00 Pulse 103 H 03/09/25 08:00 Resp 18 03/09/25 08:00 BP 91/55 03/09/25 08:00 Pulse Ox 94 03/09/25 08:00 O2 Del Method Nasal Cannula 03/09/25 08:00 O2 Flow Rate 2 03/09/25 08:00 03/08/25 03/09/25 03/09/25 22:59 06:59 14:59 Intake Total 1747.75 / 2489.875 607.583 / 3097.458 20.875 / 20.875 Output Total 750 / 750 175 / 925 Balance 997.75 / 1739.875 432.583 / 2172.458 20.875 / 20.875 Weight last 48 hrs Weight 72 kg Weight 71 kg Weight 70 kg Weight 73 kg Weight 72 kg Weight 63.957 kg Physical Exam 2 Narrative: Patient is awake alert, no distress, on 2 L O2 by nasal cannula PERRLA S1-S2 regular rate and rhythm per report Lungs clear bilaterally per report Abdomen soft nontender per report No pedal edema Urinary Catheter Management: Lundberg: Cath Placed During This Visit: yes Reason for Continuing Indwelling Catheter: Accurate Measurement of Urinary Output in Critically Ill Patients Urinary Catheter Date of Insertion: 03/07/25 Data 03/09/25 03:41 03/09/25 03:41 Micro: Microbiology 03/07/25 13:03 Urine Culture - Preliminary Urine,Clean Catch Gram Negative Rods Gram Negative Rods#2 03/07/25 11:05 Blood Culture - Preliminary Blood NEGATIVE TO DATE 03/07/25 11:02 Blood Culture - Preliminary Blood NEGATIVE TO DATE A&P Assessment and plan (1) Acute renal failure: Plan 1. Acute kidney injury superimposed on CKD stage III: Baseline creatinine in the 1.1-1.2 range, last in August 2024. Now has severe CARLOS with a creatinine of 9.7 and associated with severe metabolic acidosis. Patient anuric. Despite bicarbonate drip and IV fluid resuscitation her metabolic acidosis has not improved and discussed with patient regarding temporary dialysis. Temporary HD catheter was placed and initiated HD. -s/p HD X 2 sessions , holding off HD today - Monitor renal fxn and UOP 2. Severe metabolic acidosis: With anion gap, likely in the setting of sepsis and CARLOS. HD as above 3. Sepsis likely pyelonephritis, further workup pending 4. Shock, hypotension, on pressors 5. History of coronary artery disease 6. Shock liver in the setting of sepsis, 7. Hypokalemia : Replete Patient evaluated using audiovisual cart. Time spent 40-minutes PDMP PDMP Reviewed: Not Reviewed Attestations 2 Medical Necessity Statement*: per medicine Coding Level of Care Code Acute Code for g Fwd Diagnoses Acute renal failure N17.9
--- NOTE | 2025-03-09 10:00 | MR_ITS ---
WS: [id number] MRCP (MAGNETIC RESONANCE CHOLANGIOPANCREATOGRAPHY) HISTORY: elevated liver enzymes, high ALP COMPARISON: CT 03/07/2025, ultrasound 03/07/2025 TECHNIQUE: Multiple sequences are performed to evaluate the intra and extrahepatic ducts. Mild hepatomegaly with hepatic steatosis. Mildly heterogeneous liver. There is a small amount of perihepatic fluid. No intrahepatic duct dilatation. Gallbladder is normally distended and is not under tension. There is mild pericholecystic fluid. No intraluminal filling defects are identified. Common bile duct is normal at 4.7 mm. Small bilateral pleural effusions with compressive atelectasis at the lung bases. Heart is slightly enlarged. Pleural effusions have increased in size since 03/07/2025. Perinephric fluid, greater on the RIGHT. There is fluid extending towards the perirenal fascia and along the gutters. Kidneys do not dionisio ear to be obstructed. Spleen is normal. No pancreatic abnormality. Diffuse soft tissue anasarca. MR/MR MRCP [id number] IMPRESSION: 1. Normal common bile duct. No common bile duct obstruction. No intrahepatic d uct dilatation. 2. Mild hepatomegaly with hepatic steatosis. Variable attenuation within the l iver but no mass. 3. Small but enlarging bilateral pleural effusions. 4. Small amount of perihepatic fluid. 5. Bilateral perinephric stranding and fluid suggesting pyelonephritis. 6. Mild gallbladder wall edema may be based on hepatocellular disease and asci michaela. The gallbladder does not appear to be under tension. Early changes of acut e cholecystitis not excluded.
--- NOTE | 2025-03-09 10:17 | P.PN_ITS ---
<Statement entered by Rojelio Phillips MD - 03/10/25 10:50> Patient was evaluated and cared for in conjunction with an advanced practice practitioner. I personally examined the patient and reviewed the chart and all pertinent data including imaging, telemetry, and laboratory results. I discussed the patient in detail with the advanced practice practitioner. Please see their note for complete H&P testing result and agreed upon plan of care for the patient. Denies any complaint system GENERAL: Patient is alert, awake and oriented x3. HEART: Regular S1 and S2. No murmur, rub or gallop. LUNGS: Clear to auscultate bilaterally. CENTRAL NERVOUS SYSTEM: Grossly nonfocal. EXTREMITIES: Lower extremities with out edema bilaterally. Non-ST elevation most likely type II Sepsis Assessment and plan Continue current management of sepsis Will continue to watch monitor for any cardiac event appear to be type II non-ST elevation [place] once off pressors we will start back on beta-ofelia at some point before discharge Subjective 2 Subjective: Patient looks comfortable in bed. Denies chest pain. Denies shortness of breath. LV function is normal. From a cardiac standpoint, she looks good. She is still requiring Levo at 2. Vitals/I&O/Wt Last Vital Signs Temp 98.0 F 03/09/25 08:00 Pulse 103 H 03/09/25 08:00 Resp 18 03/09/25 08:00 BP 91/55 03/09/25 08:00 Pulse Ox 94 03/09/25 08:00 O2 Del Method Nasal Cannula 03/09/25 08:00 O2 Flow Rate 2 03/09/25 08:00 03/08/25 03/09/25 03/09/25 22:59 06:59 14:59 Intake Total 1747.75 / 2489.875 607.583 / 3097.458 20.875 / 20.875 Output Total 750 / 750 175 / 925 Balance 997.75 / 1739.875 432.583 / 2172.458 20.875 / 20.875 Weight last 48 hrs Weight 158 lb 11.725 oz Weight 156 lb 8.451 oz Weight 154 lb 5.177 oz Weight 160 lb 14.999 oz Weight 158 lb 11.725 oz Physical Exam 2 Narrative: General: No apparent distress, healthy appearing, well nourished HENMT: normoceophalic Muskuloskeletal: Full ROM Respiratory: Normal respiratory effort, clear to auscultation bilaterally throughout all lung north, no use of accessory muscles Cardio: No JVD, regular rate, regular rhythm, S1 S2 normal, no murmurs, peripheral pulses 2+ radial palpated bilaterally Extremities: Full ROM, normal, normal capillary refill, no cyanosis or edema Neuro: Alert and oriented x4, no focal motor deficits Psych: Affect normal, denies suicidal ideation, mental status grossly normal Skin: No rashes or lesions noted, no wounds Urinary Catheter Management: Lundberg: Cath Placed During This Visit: yes Reason for Continuing Indwelling Catheter: Accurate Measurement of Urinary Output in Critically Ill Patients Urinary Catheter Date of Insertion: 03/07/25 Data 03/09/25 03:41 03/09/25 03:41 Micro: Microbiology 03/07/25 13:03 Urine Culture - Preliminary Urine,Clean Catch Gram Negative Rods Gram Negative Rods#2 03/07/25 11:05 Blood Culture - Preliminary Blood NEGATIVE TO DATE 03/07/25 11:02 Blood Culture - Preliminary Blood NEGATIVE TO DATE A&P Assessment and plan (1) Essential hypertension: (2) Leukocytosis: Qualifiers: Leukocytosis type: leukemoid reaction Qualified Code(s): D72.823 - Leukemoid reaction (3) Elevated troponin: Plan Will hold off on beta blockers at this time due to patient is requiring pressors for blood pressure support. Continue current care. LV function . At this time, patient is well compensated. PDMP PDMP Reviewed: Not Reviewed Attestations 2 Medical Necessity Statement*: Deferred to primary. Coding Level of Care Code Acute Code for [facility] Fwd Diagnoses Essential hypertension I10 Leukemoid reaction D72.823 Leukocytosis type: leukemoid reaction Elevated troponin R79.89
[2025-03-09 11:17] LABS: Glucose Point of Care 149 mg/dL (70-110)
--- NOTE | 2025-03-09 12:03 | P.PN_ITS ---
Subjective 2 Subjective: seen today labs reviewed plan for dialysis today ALP elevated, liver enzymes elevated MRCP this am off levophed had BM yesterday Vitals/I&O/Wt Last Vital Signs Temp 98.0 F 03/09/25 08:00 Pulse 103 H 03/09/25 08:00 Resp 18 03/09/25 08:00 BP 91/55 03/09/25 08:00 Pulse Ox 94 03/09/25 08:00 O2 Del Method Nasal Cannula 03/09/25 08:00 O2 Flow Rate 2 03/09/25 08:00 03/08/25 03/09/25 03/09/25 22:59 06:59 14:59 Intake Total 1747.75 / 2489.875 607.583 / 3097.458 264.000 / 264.000 Output Total 750 / 750 175 / 925 Balance 997.75 / 1739.875 432.583 / 2172.458 264.000 / 264.000 Weight last 48 hrs Weight 72 kg Weight 71 kg Weight 70 kg Weight 73 kg Weight 72 kg Physical Exam 2 Narrative: Patient is awake and alert AO x 4 GCS 15 No cellulitis S1, S2 Right-sided central line in place right IJ Nontender abdomen Lundberg catheter in place with cloudy urine sediments noted Alert oriented x 4. Lungs clear to auscultation bilaterally Abdomen soft nontender Denies neck pain at this time. Undergoing dialysis at this time. Urinary Catheter Management: Lundberg: Cath Placed During This Visit: yes Reason for Continuing Indwelling Catheter: Accurate Measurement of Urinary Output in Critically Ill Patients Urinary Catheter Date of Insertion: 03/07/25 Data 03/09/25 03:41 03/09/25 03:41 Micro: Microbiology 03/07/25 13:03 Urine Culture - Preliminary Urine,Clean Catch Gram Negative Rods Gram Negative Rods#2 03/07/25 11:05 Blood Culture - Preliminary Blood NEGATIVE TO DATE 03/07/25 11:02 Blood Culture - Preliminary Blood NEGATIVE TO DATE A&P Assessment and plan (1) Septic shock: (2) DM2 (diabetes mellitus, type 2): (3) Sepsis: (4) Shock: (5) Transaminitis: (6) Urinary tract infection: (7) Acute pyelonephritis: (8) Acute renal failure: (9) Dehydration: (10) Essential hypertension: (11) Acute renal failure: Plan Septic shock Criteria met with tachypnea tachycardia leukocytosis high lactic acid with endorgan damage Septic bolus to be administered Initiation of meropenem secondary to UTI Previous urine culture showed sensitivity to penicillin and cephalosporins Patient currently requiring Levophed Right IJ in place Severe metabolic acidosis with acute renal failure Lundberg catheter has been placed No signs of hydronephrosis Concern for development of ATN, patient has been sick for last 7 days he has been taking her antihypertensive regimen as well Bicarb drip to be initiated Admit to ICU BMP every 12 hours Acute renal failure Currently on bicarb drip Nephrology consulted No acute indication for dialysis Stop nephrotoxic agents Sepsis induced cardiomyopathy History of established coronary disease no active chest pain EKG with dynamic changes, patient not complain of chest pain: Troponin trending down despite acute renal failure likely related to demand ischemia Evaluated by cardiology Continue Plavix As per the patient last stent in 2019 Shock liver Cholecystostomy tube will be considered if patient starts showing signs of cholecystitis Type 2 diabetes, will advance to consistent carb diet, insulin sliding scale, A1c is 12.3 If her bicarb does not improve she may need dialysis overnight Will follow-up with repeat labs Full code Admit to ICU DVT prophylaxis: Heparin 03/08/2025 CBC CMP twice daily. Bicarb drip as per nephrology. Continue on bank and meropenem. Renally dosed. Patient undergoing dialysis for severe acidosis as refractory. Patient did have evidence of shock liver with elevated liver enzymes which are trending down slowly. Will continue to check labs twice a day. She is still requiring Levophed which is secondary to severe acidosis. I hope once acidosis improves Levophed requirement will also reduce. Continue to treat for UTI. Await urine culture, blood culture Continue clear liquids. Would not advance diet till Levophed requirement comes down. Patient is okay to have ice chips and water. 03/09/2025 continue dialysis as per nephro LFTs deranged but slowly improving MRCP to be done today: 1. Normal common bile duct. No common bile duct obstruction. No intrahepatic duct dilatation. 2. Mild hepatomegaly with hepatic steatosis. Variable attenuation within the liver but no mass. 3. Small but enlarging bilateral pleural effusions. 4. Small amount of perihepatic fluid. 5. Bilateral perinephric stranding and fluid suggesting pyelonephritis. 6. Mild gallbladder wall edema may be based on hepatocellular disease and ascites. The gallbladder does not appear to be under tension. Early changes of acute cholecystitis not excluded. continue to check labs twice daily levophed off await cultures continue clear liquids and slowly advance patient has evidence of pyelonephritis, continue ABX Urine culture positive x2 diff strains of gram neg pt will need 2 weeks of IV antibiotics PDMP PDMP Reviewed: Not Reviewed Attestations 2 Medical Necessity Statement*: continue to tx for ATN/ARF/pyelonephritis Diagnoses Septic shock A41.9; R65.21 DM2 (diabetes mellitus, type 2) E11.9 Sepsis A41.9 Shock R57.9 Transaminitis R74.01 Urinary tract infection N39.0 Acute pyelonephritis N10 Acute renal failure N17.9 Dehydration E86.0 Essential hypertension I10
[2025-03-09] MEDS: heparin, porcine 1,000 unit/mL INJ 10 mL 1000 UNIT IV (13:22)
[2025-03-09 15:21] LABS: Basophils # 0.1 10^3/uL (0.0-0.1); Basophils % 0.7 %; Eosinophils # 0.4 10^3/uL (0.0-0.8); Eosinophils % 3.3 %; Hematocrit 39.3 % (36-47); Lymphocytes # 2.3 10^3/uL (0.8-4.8); Mean Corpuscular HGB Conc 32.3 g/dL (30-55); Mean Corpuscular Hemoglobin 28.4 pg (27-33); Mean Corpuscular Volume 87.9 fl (85-98); Mean Platelet Volume 11.5 fL (7.4-10.4); Monocytes # 0.8 10^3/uL (0.2-0.9); Monocytes % 6.2 %; Neutrophils # 8.61 10^3/uL (1.8-7.7); Neutrophils % 70.3 %; Nucleated Red Blood Cells % 0.2 %; Platelet Count 199 10^3/cmm (157-399); Red Blood Count 4.47 10^6/uL (3.85-5.65); Red Cell Distribution Width 15.1 % (12.1-15.1); White Blood Count 12.24 10^3/uL (3.29-11.43)
[2025-03-09 15:40] LABS: Alanine Aminotransferase 438 U/L (0-33); Albumin Level 3.8 g/dL (3.5-5.2); Alkaline Phosphatase 399 U/L (35-105); Anion Gap 19.9 (5-19); Blood Urea Nitrogen 9 mg/dL (8-23); Calcium 8.6 mg/dL (8.5-10.5); Carbon Dioxide 26 mmol/L (22-29); Chloride 93 mmol/L (98-107); Creatinine Clr Calc Pharmacy 20.9476; Globulin 4.2 g/dL (1.3-4.6); Glucose 116 mg/dL (65-115); Magnesium 2.1 mg/dL (1.7-2.3); Osmolality Calculated 282 mOsm/kg (285-295); Phosphorus 1.7 mg/dL (2.5-4.5); Sodium 136 mmol/L (136-145); Total Bilirubin 0.7 mg/dL (0.15-1.2)
[2025-03-09 15:44] LABS: Potassium 2.9 mmol/L (3.5-5.1)
[2025-03-09 15:53] LABS: Aspartate Amino Transferase 913 U/L (0-32)
--- NOTE | 2025-03-09 16:57 | PC.HD ---
Unable to run HD at prescribed blood flow rate due to poor temporary HD catheter performance. Unable to draw at all from arterial port and stiff venous port. Lines reversed, but still caused unacceptable machine pressures during treatment at prescribed blood flow rate. Rate was lowered to minimum allowable with very high machine APs. Advice Line Rn and primary RN aware.
[2025-03-09 17:18] LABS: Glucose Point of Care 147 mg/dL (70-110)
--- NOTE | 2025-03-09 17:42 | USR_ITS ---
PROCEDURE INFORMATION: Exam: US Abdomen; Limited Exam date and time: 03/09/2025 6:37 PM Age: 69 years old Clinical indication: Screening exam; Other: Portal vein thrombosis TECHNIQUE: Imaging protocol: Real time ultrasound of the abdomen with image documentation. Limited exam focused on the region of clinical interest. COMPARISON: US abdomen limited [id number] 03/07/2025 11:23 AM FINDINGS: Portal veins are patent. No definite thrombus identified at this time. The hepatic veins and the inferior vena cava are also patent. Slight peripheral nodular contour seen underlying cirrhosis. Otherwise the liver parenchyma is slightly heterogenous. US/US ABD DOPPLER [id number] IMPRESSION: As above.
--- NOTE | 2025-03-09 17:42 | PC.NURSE ---
Patient started to cough every time they took a sip of their fluids. Dr. Howard was contacted and she ordered to get a speech evaluation on the patient.
--- NOTE | 2025-03-09 17:50 | P.PN_ITS ---
Subjective 2 Subjective: LFTs up Off levo Vitals/I&O/Wt Last Vital Signs Temp 98.6 F 03/09/25 16:56 Pulse 108 H 03/09/25 16:56 Resp 17 03/09/25 16:56 BP 123/67 03/09/25 16:56 Pulse Ox 99 03/09/25 16:00 O2 Del Method Nasal Cannula 03/09/25 16:00 O2 Flow Rate 1 03/09/25 16:00 03/09/25 03/09/25 03/09/25 06:59 14:59 22:59 Intake Total 607.583 / 3097.458 504.000 / 504.000 362.875 / 866.875 Output Total 175 / 925 5136 / 5136 Balance 432.583 / 2172.458 504.000 / 504.000 -4773.125 / -4269.125 Weight last 48 hrs Weight 160 lb 14.999 oz Weight 158 lb 11.725 oz Weight 156 lb 8.451 oz Weight 154 lb 5.177 oz Weight 160 lb 14.999 oz Weight 158 lb 11.725 oz Physical Exam 2 Narrative: RRR unlabored breathing RA abdomen soft, nt,nd R groin- dialysis catheter in place Urinary Catheter Management: Lundberg: Cath Placed During This Visit: yes Reason for Continuing Indwelling Catheter: Accurate Measurement of Urinary Output in Critically Ill Patients Urinary Catheter Date of Insertion: 03/07/25 Data 03/09/25 15:00 03/09/25 15:00 Micro: Microbiology 03/07/25 13:03 Urine Culture - Preliminary Urine,Clean Catch Gram Negative Rods Gram Negative Rods#2 A&P Assessment and plan (1) Acute pyelonephritis: (2) Shock liver: Plan 69 yo female with septic shock 2/2 pyelonephritis. LFTs up consistent with shock liver. Discussed with hospitalist. Consider US duplex of liver to rule out portal vein thrombus. Low suspicion for cholecystitis, however, can consider HIDA to rule it out. She's off levo so LFTS should improve over the weekend. PDMP PDMP Reviewed: Not Reviewed Attestations 2 Medical Necessity Statement*: NA Coding Level of Care Code 19004 Diagnoses Acute pyelonephritis N10 Shock liver K72.00
[2025-03-09 18:01] LABS: INR 1.07 (0.8-1.2)
[2025-03-09 18:05] LABS: Gamma Glutamyl Transferase 428 U/L (5-36)
[2025-03-09 18:27] LABS: Hepatitis A Antibody IgM Non-Reactive (Nonreactive); Hepatitis B Core AB, Total Non-Reactive (Nonreactive); Hepatitis B Surface Antigen Non-Reactive (Nonreactive); Hepatitis C Virus Antibody Non-Reactive (Nonreactive)
[2025-03-09 18:47] LABS: Partial Thromboplastin Time 83.9 SECONDS (23.9-36.7)
[2025-03-09 21:09] LABS: Glucose Point of Care 170 mg/dL (70-110)
[2025-03-09 23:06] LABS: Hepatitis B Surface AB 18.9 (11.5-1000)
[2025-03-10] VITALS (101 sets, daily range): BP systolic 95–177; BP diastolic 45–101; PULSE 92–112; RESP 13–26; TEMP 36.4–37.4; O2SAT 88–100
--- NOTE | 2025-03-10 01:29 | PC.NURSE ---
Fecal occult Blood Patient had dark, tarry bowel movement. Dr. Gaona notified; order received for fecal occult blood test.
--- NOTE | 2025-03-10 02:35 | PC.NURSE ---
Heparin Patient's fecal occult stool test positive. Dr. Gaona notified; order received to place heparin subq on hold.
[2025-03-10 04:00] LABS: Basophils # 0.1 10^3/uL (0.0-0.1); Basophils % 0.6 %; Eosinophils # 0.2 10^3/uL (0.0-0.8); Hematocrit 28.2 % (36-47); Lymphocytes # 1.9 10^3/uL (0.8-4.8); Lymphocytes % 21.9 %; Mean Corpuscular HGB Conc 32.3 g/dL (30-55); Mean Corpuscular Hemoglobin 28.6 pg (27-33); Mean Corpuscular Volume 88.7 fl (85-98); Mean Platelet Volume 11.7 fL (7.4-10.4); Monocytes # 0.7 10^3/uL (0.2-0.9); Monocytes % 7.5 %; Neutrophils # 5.97 10^3/uL (1.8-7.7); Neutrophils % 67.4 %; Nucleated Red Blood Cells % 0.2 %; Platelet Count 137 10^3/cmm (157-399); Red Blood Count 3.18 10^6/uL (3.85-5.65); Red Cell Distribution Width 15.1 % (12.1-15.1); White Blood Count 8.85 10^3/uL (3.29-11.43)
[2025-03-10 04:10] LABS: Alanine Aminotransferase 280 U/L (0-33); Albumin Level 2.7 g/dL (3.5-5.2); Alkaline Phosphatase 293 U/L (35-105); Aspartate Amino Transferase 553 U/L (0-32); Blood Urea Nitrogen 21 mg/dL (8-23); Calcium 7.8 mg/dL (8.5-10.5); Carbon Dioxide 23 mmol/L (22-29); Chloride 100 mmol/L (98-107); Creatinine Clr Calc Pharmacy 9.7029; Globulin 2.9 g/dL (1.3-4.6); Glomerular Filtration Rate 8.6 mL/min (90-130); Glucose 114 mg/dL (65-115); Magnesium 2.1 mg/dL (1.7-2.3); Osmolality Calculated 288 mOsm/kg (285-295); Phosphorus 2.3 mg/dL (2.5-4.5); Sodium 137 mmol/L (136-145); Total Bilirubin 0.6 mg/dL (0.15-1.2); Total Protein 5.6 g/dL (6.6-8.7)
[2025-03-10] MEDS: meropenem 500 mg SDV IVP (04:19)
[2025-03-10 07:22] LABS: Glucose Point of Care 140 mg/dL (70-110)
--- NOTE | 2025-03-10 08:33 | P.PN_ITS ---
Subjective 2 Subjective: on room air off levophed Medications: Reviewed: Yes Vitals/I&O/Wt Last Vital Signs Temp 98.9 F 03/10/25 04:15 Pulse 109 H 03/10/25 08:21 Resp 16 03/10/25 08:21 BP 135/64 03/10/25 06:45 Pulse Ox 93 03/10/25 08:21 O2 Del Method Room Air 03/10/25 08:21 O2 Flow Rate 1 03/09/25 16:00 03/09/25 03/10/25 03/10/25 22:59 06:59 14:59 Intake Total 189.000 / 693.000 105 / 798.000 Output Total 3636 / 3636 75 / 3711 Balance -3447.000 / -2943.000 30 / -2913.000 Weight last 48 hrs Weight 69.5 kg Weight 73 kg Weight 72 kg Weight 71 kg Physical Exam 2 Narrative: Patient is awake alert, no distress, on 2 L O2 by nasal cannula PERRLA S1-S2 regular rate and rhythm per report Lungs clear bilaterally per report Abdomen soft nontender per report No pedal edema Urinary Catheter Management: Lundberg: Cath Placed During This Visit: yes Reason for Continuing Indwelling Catheter: Accurate Measurement of Urinary Output in Critically Ill Patients Urinary Catheter Date of Insertion: 03/07/25 Data 03/10/25 03:02 03/10/25 03:02 Micro: Microbiology 03/10/25 01:10 Occult Blood (FIT) - Final Stool Routine Collection 03/07/25 13:03 Urine Culture - Preliminary Urine,Clean Catch Gram Negative Rods Gram Negative Rods#2 A&P Assessment and plan (1) Acute renal failure: Plan 1. Acute kidney injury superimposed on CKD stage III: Baseline creatinine in the 1.1-1.2 range, last in August 2024. Now has severe CARLOS with a creatinine of 9.7 and associated with severe metabolic acidosis. Patient anuric. Despite bicarbonate drip and IV fluid resuscitation her metabolic acidosis has not improved and discussed with patient regarding temporary dialysis. Temporary HD catheter was placed and initiated HD. -s/p HD X 3 sessions , on Room air currently - Hold off hD today - Monitor renal fxn and UOP 2. Severe metabolic acidosis: With anion gap, likely in the setting of sepsis and CARLOS. HD as above, improved 3. Sepsis likely pyelonephritis, 4. Shock, hypotension, on pressors 5. History of coronary artery disease 6. Shock liver in the setting of sepsis, 7. Hypokalemia : Replete 8. GI bleed Patient evaluated using audiovisual cart. Time spent 40-minutes PDMP PDMP Reviewed: Not Reviewed Attestations 2 Medical Necessity Statement*: [facility] Coding Level of Care Code Acute Code for g Fwd Diagnoses Acute renal failure N17.9
--- NOTE | 2025-03-10 08:36 | P.PN_ITS ---
Subjective 2 Subjective: LFTs down Vitals/I&O/Wt Last Vital Signs Temp 98.9 F 03/10/25 04:15 Pulse 109 H 03/10/25 08:21 Resp 16 03/10/25 08:21 BP 135/64 03/10/25 06:45 Pulse Ox 93 03/10/25 08:21 O2 Del Method Room Air 03/10/25 08:21 O2 Flow Rate 1 03/09/25 16:00 03/09/25 03/10/25 03/10/25 22:59 06:59 14:59 Intake Total 189.000 / 693.000 105 / 798.000 Output Total 3636 / 3636 75 / 3711 Balance -3447.000 / -2943.000 30 / -2913.000 Weight last 48 hrs Weight 153 lb 3.54 oz Weight 160 lb 14.999 oz Weight 158 lb 11.725 oz Weight 156 lb 8.451 oz Physical Exam 2 Narrative: RRR unlabored breathing abdomen soft, nt, nd Urinary Catheter Management: Lundberg: Cath Placed During This Visit: yes Reason for Continuing Indwelling Catheter: Accurate Measurement of Urinary Output in Critically Ill Patients Urinary Catheter Date of Insertion: 03/07/25 Data 03/10/25 03:02 03/10/25 03:02 Micro: Microbiology 03/10/25 01:10 Occult Blood (FIT) - Final Stool Routine Collection 03/07/25 13:03 Urine Culture - Preliminary Urine,Clean Catch Gram Negative Rods Gram Negative Rods#2 A&P Assessment and plan (1) Shock liver: Plan 69 yo female in septic shock 2/2 pyelonephritis. LFTs down consistent with shock liver. Continue medical management of pyelonephritis. US ruled out PVT. Low suspicion for cholecystitis. PDMP PDMP Reviewed: Not Reviewed Attestations 2 Medical Necessity Statement*: NA Coding Level of Care Code 79076 Diagnoses Shock liver K72.00
[2025-03-10] MEDS: pantoprazole 40 mg SDV IVP ×2 (08:53→17:25)
[2025-03-10] MEDS: sucralfate 1 gm/10 mL Oral Liq UDC PO (10:39)
--- NOTE | 2025-03-10 10:55 | PC.NURSE ---
Dr. Howard and Dr Alan tobar with holding am dose of Plavix. Patient reported to be having tarry stool over night manager.
--- NOTE | 2025-03-10 11:11 | P.PN_ITS ---
Subjective 2 Subjective: Patient denies chest pain, had episodes of melena last night as per ICU nurse Medications: Reviewed: Yes Vitals/I&O/Wt Last Vital Signs Temp 97.6 F 03/10/25 08:45 Pulse 102 H 03/10/25 10:00 Resp 15 03/10/25 10:00 BP 152/72 03/10/25 10:00 Pulse Ox 96 03/10/25 10:00 O2 Del Method Room Air 03/10/25 10:00 O2 Flow Rate 1 03/09/25 16:00 03/09/25 03/10/25 03/10/25 22:59 06:59 14:59 Intake Total 189.000 / 693.000 105 / 798.000 0 / 0 Output Total 3636 / 3636 75 / 3711 Balance -3447.000 / -2943.000 30 / -2913.000 0 / 0 Weight last 48 hrs Weight 153 lb 3.54 oz Weight 160 lb 14.999 oz Weight 158 lb 11.725 oz Weight 156 lb 8.451 oz Physical Exam 2 Cardio: OTHER: GENERAL: Patient is alert, awake and oriented x3. HEART: Regular S1 and S2. No murmur, rub or gallop. LUNGS: Clear to auscultate bilaterally. CENTRAL NERVOUS SYSTEM: Grossly nonfocal. EXTREMITIES: Lower extremities with out edema bilaterally. Urinary Catheter Management: Lundberg: Cath Placed During This Visit: yes Reason for Continuing Indwelling Catheter: Accurate Measurement of Urinary Output in Critically Ill Patients Urinary Catheter Date of Insertion: 03/07/25 Data 03/10/25 03:02 03/10/25 03:02 Micro: Microbiology 03/10/25 01:10 Occult Blood (FIT) - Final Stool Routine Collection 03/07/25 13:03 Urine Culture - Preliminary Urine,Clean Catch Gram Negative Rods Gram Negative Rods#2 A&P Assessment and plan (1) Essential hypertension: (2) Leukocytosis: Qualifiers: Leukocytosis type: leukemoid reaction Qualified Code(s): D72.823 - Leukemoid reaction (3) Elevated troponin: (4) GI bleed: Plan Denies any cardiac symptoms Due to episode of melena can stop heparin and hold antiplatelet Treatment GI as per medicine can give Protonix Continue to monitor doing fine from a cardiovascular perspective PDMP PDMP Reviewed: Not Reviewed Attestations 2 Medical Necessity Statement*: As per medicine Coding Level of Care Code Acute Code for Chg Fwd Diagnoses Essential hypertension I10 Leukemoid reaction D72.823 Leukocytosis type: leukemoid reaction Elevated troponin R79.89 GI bleed K92.2
[2025-03-10 11:56] LABS: Glucose Point of Care 172 mg/dL (70-110)
[2025-03-10] MEDS: insulin lispro 100 unit/1 mL SUBCUT ×2 (12:10→17:26)
--- NOTE | 2025-03-10 12:45 | P.PN_ITS ---
Subjective 2 Subjective: Patient had an episode of black tarry stool overnight. Heparin Plavix have been held at this time. Patient is on Protonix 40 IV twice daily. Liver enzymes are starting to trend down. They may have peaked. Patient sitting up in bed appearing comfortable. Had another BM last night. Denies any abdominal pain, chest pain, shortness of breath. Creatinine 5.0. Urine output 75 cc overnight. Was on Levophed all night and was turned off around shift change this morning. Vitals/I&O/Wt Last Vital Signs Temp 97.6 F 03/10/25 08:45 Pulse 99 03/10/25 12:15 Resp 21 H 03/10/25 12:15 BP 162/82 03/10/25 12:15 Pulse Ox 97 03/10/25 12:15 O2 Del Method Room Air 03/10/25 12:15 O2 Flow Rate 1 03/09/25 16:00 03/09/25 03/10/25 03/10/25 22:59 06:59 14:59 Intake Total 189.000 / 693.000 105 / 798.000 0 / 0 Output Total 3636 / 3636 75 / 3711 Balance -3447.000 / -2943.000 30 / -2913.000 0 / 0 Weight last 48 hrs Weight 69.5 kg Weight 73 kg Weight 72 kg Weight 71 kg Physical Exam 2 Narrative: General: Alert oriented x3, patient seen sitting up in bed appearing comfortable at this time. She is smiling with answering questions. Feels comfortable at this time. HEENT: Normocephalic, atraumatic, EOMI, breathing 1 L nasal cannula. Cardio: Regular rate rhythm, normal S1-S2, Respiratory: Mainly clear to auscultation bilaterally GI: Abdomen soft, nontender, nondistended, bowel sounds + Extremities: No edema bilateral lower extremities Right-sided central line in place right IJ. Urinary Catheter Management: Lundberg: Cath Placed During This Visit: yes Reason for Continuing Indwelling Catheter: Accurate Measurement of Urinary Output in Critically Ill Patients Urinary Catheter Date of Insertion: 03/07/25 Data 03/10/25 03:02 03/10/25 03:02 Micro: Microbiology 03/10/25 01:10 Occult Blood (FIT) - Final Stool Routine Collection A&P Assessment and plan (1) Septic shock: (2) DM2 (diabetes mellitus, type 2): (3) Sepsis: (4) Shock: (5) Transaminitis: (6) Urinary tract infection: (7) Acute pyelonephritis: (8) Acute renal failure: (9) Dehydration: (10) Essential hypertension: (11) Acute renal failure: Plan Septic shock Criteria met with tachypnea tachycardia leukocytosis high lactic acid with endorgan damage Septic bolus to be administered Initiation of meropenem secondary to UTI Previous urine culture showed sensitivity to penicillin and cephalosporins Patient currently requiring Levophed Right IJ in place Severe metabolic acidosis with acute renal failure Lundberg catheter has been placed No signs of hydronephrosis Concern for development of ATN, patient has been sick for last 7 days he has been taking her antihypertensive regimen as well Bicarb drip to be initiated Admit to ICU BMP every 12 hours Acute renal failure Currently on bicarb drip Nephrology consulted No acute indication for dialysis Stop nephrotoxic agents Sepsis induced cardiomyopathy History of established coronary disease no active chest pain EKG with dynamic changes, patient not complain of chest pain: Troponin trending down despite acute renal failure likely related to demand ischemia Evaluated by cardiology Continue Plavix As per the patient last stent in 2019 Shock liver Cholecystostomy tube will be considered if patient starts showing signs of cholecystitis Type 2 diabetes, will advance to consistent carb diet, insulin sliding scale, A1c is 12.3 If her bicarb does not improve she may need dialysis overnight Will follow-up with repeat labs Full code Admit to ICU DVT prophylaxis: Heparin 03/08/2025 CBC CMP twice daily. Bicarb drip as per nephrology. Continue on bank and meropenem. Renally dosed. Patient undergoing dialysis for severe acidosis as refractory. Patient did have evidence of shock liver with elevated liver enzymes which are trending down slowly. Will continue to check labs twice a day. She is still requiring Levophed which is secondary to severe acidosis. I hope once acidosis improves Levophed requirement will also reduce. Continue to treat for UTI. Await urine culture, blood culture Continue clear liquids. Would not advance diet till Levophed requirement comes down. Patient is okay to have ice chips and water. 03/09/2025 continue dialysis as per nephro LFTs deranged but slowly improving MRCP to be done today: 1. Normal common bile duct. No common bile duct obstruction. No intrahepatic duct dilatation. 2. Mild hepatomegaly with hepatic steatosis. Variable attenuation within the liver but no mass. 3. Small but enlarging bilateral pleural effusions. 4. Small amount of perihepatic fluid. 5. Bilateral perinephric stranding and fluid suggesting pyelonephritis. 6. Mild gallbladder wall edema may be based on hepatocellular disease and ascites. The gallbladder does not appear to be under tension. Early changes of acute cholecystitis not excluded. continue to check labs twice daily levophed off await cultures continue clear liquids and slowly advance patient has evidence of pyelonephritis, continue ABX Urine culture positive x2 diff strains of gram neg pt will need 2 weeks of IV antibiotics 03/10/2025 Dialysis as per nephrology Shock liver improving. Liver enzymes are starting to trend down. They may have reached peak. MRCP reviewed. No indication of cholecystitis. Patient is requiring Levophed intermittently. Oliguric. Urine output 75 cc overnight. Continue antibiotics at this time. Urine culture pending. Gram-negative rods 1 and 2 growing. Awaiting final culture sensitivity. Patient did have a tarry/green bowel movement overnight. Hemoglobin is stable. FOBT positive. Continue Protonix 40 IV twice daily, add sucralfate. Continue full liquid diet today. Will continue to monitor. No plan for dialysis today. Will reevaluate labs in AM. PDMP PDMP Reviewed: Not Reviewed Attestations 2 Medical Necessity Statement*: Continue to monitor in ICU setting as patient has been requiring intermittent Levophed. Diagnoses Septic shock A41.9; R65.21 DM2 (diabetes mellitus, type 2) E11.9 Sepsis A41.9 Shock R57.9 Transaminitis R74.01 Urinary tract infection N39.0 Acute pyelonephritis N10 Acute renal failure N17.9 Dehydration E86.0 Essential hypertension I10
[2025-03-10] MEDS: cefTRIAXone 1,000 mg SDV 1000 MG IVP (13:03)
[2025-03-10 14:27] LABS: Basophils # 0.1 10^3/uL (0.0-0.1); Basophils % 0.7 %; Eosinophils # 0.2 10^3/uL (0.0-0.8); Eosinophils % 2.4 %; Hematocrit 28.4 % (36-47); Lymphocytes # 1.6 10^3/uL (0.8-4.8); Lymphocytes % 18.2 %; Mean Corpuscular HGB Conc 31.3 g/dL (30-55); Mean Corpuscular Hemoglobin 28.4 pg (27-33); Mean Corpuscular Volume 90.7 fl (85-98); Monocytes # 0.6 10^3/uL (0.2-0.9); Monocytes % 6.9 %; Neutrophils # 6.27 10^3/uL (1.8-7.7); Neutrophils % 70.8 %; Nucleated Red Blood Cells % 0.2 %; Platelet Count 122 10^3/cmm (157-399); Red Blood Count 3.13 10^6/uL (3.85-5.65); Red Cell Distribution Width 15.3 % (12.1-15.1); White Blood Count 8.85 10^3/uL (3.29-11.43)
[2025-03-10 15:03] LABS: Alanine Aminotransferase 245 U/L (0-33); Albumin Level 2.5 g/dL (3.5-5.2); Alkaline Phosphatase 261 U/L (35-105); Anion Gap 20.1 (5-19); Aspartate Amino Transferase 462 U/L (0-32); Blood Urea Nitrogen 28 mg/dL (8-23); Carbon Dioxide 20 mmol/L (22-29); Chloride 100 mmol/L (98-107); Creatinine Clr Calc Pharmacy 8.3055; Glomerular Filtration Rate 7.4 mL/min (90-130); Glucose 215 mg/dL (65-115); Magnesium 2.2 mg/dL (1.7-2.3); Osmolality Calculated 294 mOsm/kg (285-295); Phosphorus 2.7 mg/dL (2.5-4.5); Potassium 4.1 mmol/L (3.5-5.1); Sodium 136 mmol/L (136-145); Total Bilirubin 0.5 mg/dL (0.15-1.2); Total Protein 5.5 g/dL (6.6-8.7)
[2025-03-10 17:20] LABS: Glucose Point of Care 172 mg/dL (70-110)
--- NOTE | 2025-03-10 18:27 | PC.NURSE ---
Shift note: Overall, uneventful shift. Patient rested in bed through shift, sometimes refusing turns, educated on pressure injury prevention. Patient reports feeling tired, no reports of pain. Family at bedside given updates on todays plan of care. Patient had one bowel movement, no tarry stool visualized.
[2025-03-10 20:31] LABS: Glucose Point of Care 139 mg/dL (70-110)
--- NOTE | 2025-03-10 21:18 | PC.NURSE ---
Carafate Patient refusing carafate. Education provided regarding blood found in stool and carafate indications. Patient still refused, stating I am done with taking medications, I don't want it. Dr. Gaona notified.
[2025-03-11] VITALS (99 sets, daily range): BP systolic 130–168; BP diastolic 63–89; PULSE 84–107; RESP 13–24; TEMP 36.4–37.3; O2SAT 89–100
[2025-03-11 04:50] LABS: Basophils # 0.1 10^3/uL (0.0-0.1); Basophils % 0.5 %; Eosinophils # 0.3 10^3/uL (0.0-0.8); Eosinophils % 3.1 %; Hematocrit 27.5 % (36-47); Lymphocytes # 1.6 10^3/uL (0.8-4.8); Lymphocytes % 16.2 %; Mean Corpuscular HGB Conc 31.3 g/dL (30-55); Mean Corpuscular Hemoglobin 28.5 pg (27-33); Mean Corpuscular Volume 91.1 fl (85-98); Mean Platelet Volume 11.4 fL (7.4-10.4); Monocytes # 0.7 10^3/uL (0.2-0.9); Monocytes % 7.1 %; Neutrophils # 7.27 10^3/uL (1.8-7.7); Neutrophils % 71.7 %; Nucleated Red Blood Cells % 0.3 %; Platelet Count 120 10^3/cmm (157-399); Red Blood Count 3.02 10^6/uL (3.85-5.65); White Blood Count 10.13 10^3/uL (3.29-11.43)
[2025-03-11 05:09] LABS: Alanine Aminotransferase 238 U/L (0-33); Albumin Level 2.6 g/dL (3.5-5.2); Alkaline Phosphatase 254 U/L (35-105); Aspartate Amino Transferase 449 U/L (0-32); Blood Urea Nitrogen 39 mg/dL (8-23); Carbon Dioxide 21 mmol/L (22-29); Chloride 102 mmol/L (98-107); Globulin 2.8 g/dL (1.3-4.6); Glomerular Filtration Rate 5.9 mL/min (90-130); Glucose 180 mg/dL (65-115); Magnesium 2.3 mg/dL (1.7-2.3); Osmolality Calculated 300 mOsm/kg (285-295); Phosphorus 3.1 mg/dL (2.5-4.5); Sodium 138 mmol/L (136-145); Total Bilirubin 0.4 mg/dL (0.15-1.2); Total Protein 5.4 g/dL (6.6-8.7)
[2025-03-11 07:35] LABS: Glucose Point of Care 164 mg/dL (70-110)
[2025-03-11] MEDS: pantoprazole 40 mg SDV IVP ×2 (08:06→17:46)
[2025-03-11] MEDS: insulin lispro 100 unit/1 mL SUBCUT ×4 (08:07→21:03)
--- NOTE | 2025-03-11 08:22 | P.PN_ITS ---
Subjective 2 Subjective: LFTs down Vitals/I&O/Wt Last Vital Signs Temp 97.6 F 03/11/25 07:45 Pulse 88 03/11/25 07:45 Resp 15 03/11/25 07:45 BP 150/76 03/11/25 07:45 Pulse Ox 100 03/11/25 07:45 O2 Del Method Nasal Cannula 03/11/25 07:45 O2 Flow Rate 2 03/11/25 07:45 03/10/25 03/11/25 03/11/25 22:59 06:59 14:59 Intake Total 100 / 200 111 / 311 Output Total 75 / 75 75 / 150 Balance 25 / 125 36 / 161 Weight last 48 hrs Weight 153 lb 3.54 oz Weight 153 lb 3.54 oz Weight 160 lb 14.999 oz Physical Exam 2 Narrative: RRR unlabored breathing RA Abdomen soft, nt, nd Urinary Catheter Management: Lundberg: Cath Placed During This Visit: yes Reason for Continuing Indwelling Catheter: Accurate Measurement of Urinary Output in Critically Ill Patients Urinary Catheter Date of Insertion: 03/07/25 Data 03/11/25 04:37 03/11/25 04:37 Micro: Microbiology 03/07/25 13:03 Urine Culture - Final Urine,Clean Catch Klebsiella oxytoca Escherichia coli A&P Assessment and plan (1) Shock liver: Plan 69 yo female admitted with septic shock 2/2 pyelo. LFTs down consistent with shock liver. Continue medical support. PDMP PDMP Reviewed: Not Reviewed Attestations 2 Medical Necessity Statement*: NA Coding Level of Care Code 46140 Diagnoses Shock liver K72.00
--- NOTE | 2025-03-11 09:09 | P.PN_ITS ---
Subjective 2 Subjective: remains oliguric Medications: Reviewed: Yes Vitals/I&O/Wt Last Vital Signs Temp 97.6 F 03/11/25 07:45 Pulse 92 03/11/25 08:55 Resp 15 03/11/25 08:55 BP 150/76 03/11/25 07:45 Pulse Ox 95 03/11/25 08:55 O2 Del Method Room Air 03/11/25 08:55 O2 Flow Rate 2 03/11/25 07:45 03/10/25 03/11/25 03/11/25 22:59 06:59 14:59 Intake Total 100 / 200 111 / 311 Output Total 75 / 75 75 / 150 Balance 25 / 125 36 / 161 Weight last 48 hrs Weight 69.5 kg Weight 69.5 kg Weight 73 kg Physical Exam 2 Narrative: Patient is awake alert, no distress, on 2 L O2 by nasal cannula PERRLA S1-S2 regular rate and rhythm per report Lungs clear bilaterally per report Abdomen soft nontender per report No pedal edema Urinary Catheter Management: Lundberg: Cath Placed During This Visit: yes Reason for Continuing Indwelling Catheter: Accurate Measurement of Urinary Output in Critically Ill Patients Urinary Catheter Date of Insertion: 03/07/25 Data 03/11/25 04:37 03/11/25 04:37 Micro: Microbiology 03/07/25 13:03 Urine Culture - Final Urine,Clean Catch Klebsiella oxytoca Escherichia coli A&P Assessment and plan (1) Acute renal failure: Plan 1. Acute kidney injury superimposed on CKD stage III: Baseline creatinine in the 1.1-1.2 range, last in August 2024. Now has severe CARLOS with a creatinine of 9.7 and associated with severe metabolic acidosis. Patient oliguric . Despite bicarbonate drip and IV fluid resuscitation her metabolic acidosis has not improved and discussed with patient regarding temporary dialysis. Temporary HD catheter was placed and initiated HD. -s/p HD X 3 sessions , on Room air currently -HD today - Monitor renal fxn and UOP 2. Severe metabolic acidosis: With anion gap, likely in the setting of sepsis and CARLOS. HD as above, improved 3. Sepsis likely pyelonephritis, 4. Shock, hypotension, on pressors 5. History of coronary artery disease 6. Shock liver in the setting of sepsis, 7. Hypokalemia : Replete 8. GI bleed Patient evaluated using audiovisual cart. Time spent 40-minutes PDMP PDMP Reviewed: Not Reviewed Attestations 2 Medical Necessity Statement*: per medicine team Coding Level of Care Code Acute Code for Chg Fwd Diagnoses Acute renal failure N17.9
--- NOTE | 2025-03-11 10:00 | PC.NURSE ---
Received telephone call from Nati, dialysis nurse stating Dr. Henderson approved to hold dialysis until tomorrow, 03/12/25. Heparin and Cathflo will be in patients med bin.
[2025-03-11 12:12] LABS: Glucose Point of Care 155 mg/dL (70-110)
[2025-03-11] MEDS: cefTRIAXone 1,000 mg SDV 1000 MG IVP (13:00)
--- NOTE | 2025-03-11 13:40 | P.PN_ITS ---
Subjective 2 Subjective: Liver enzymes trending down. Patient does not have much of an appetite. He states she does not feel like eating. However she did state that she is willing to try milkshake and have some mashed potatoes. We will call the kitchen to see if we can have that ordered for her. Will continue GI soft diet. She had 1 bowel movement that was green. Hemoglobin has been stable. Is 8.6 today. No true evidence of GI bleed. Possible gastritis. Platelets have decreased from 320 down to 120 today. Heparin is being held. Patient sitting up in bed appearing comfortable. No plan for dialysis today. Remains oliguric. Vitals/I&O/Wt Last Vital Signs Temp 98.5 F 03/11/25 12:00 Pulse 89 03/11/25 12:00 Resp 15 03/11/25 12:00 BP 148/74 03/11/25 12:00 Pulse Ox 92 03/11/25 12:00 O2 Del Method Room Air 03/11/25 12:00 O2 Flow Rate 2 03/11/25 07:45 03/10/25 03/11/25 03/11/25 22:59 06:59 14:59 Intake Total 100 / 200 111 / 311 100 / 100 Output Total 75 / 75 75 / 150 Balance 25 / 125 36 / 161 100 / 100 Weight last 48 hrs Weight 69.5 kg Weight 69.5 kg Weight 73 kg Physical Exam 2 Narrative: General: Alert oriented x3, HEENT: Normocephalic, atraumatic, EOMI, breathing 1 L nasal cannula. Cardio: Regular rate rhythm, normal S1-S2, Respiratory: Mainly clear to auscultation bilaterally GI: Abdomen soft, nontender, nondistended, bowel sounds + Extremities: No edema bilateral lower extremities Right-sided central line in place right IJ. Urinary Catheter Management: Lundberg: Cath Placed During This Visit: yes Reason for Continuing Indwelling Catheter: Accurate Measurement of Urinary Output in Critically Ill Patients Urinary Catheter Date of Insertion: 03/07/25 Data 03/11/25 04:37 03/11/25 04:37 Micro: Microbiology 03/07/25 13:03 Urine Culture - Final Urine,Clean Catch Klebsiella oxytoca Escherichia coli A&P Assessment and plan (1) Septic shock: (2) DM2 (diabetes mellitus, type 2): (3) Sepsis: (4) Shock: (5) Transaminitis: (6) Urinary tract infection: (7) Acute pyelonephritis: (8) Acute renal failure: (9) Dehydration: (10) Essential hypertension: (11) Acute renal failure: Plan Septic shock Criteria met with tachypnea tachycardia leukocytosis high lactic acid with endorgan damage Septic bolus to be administered Initiation of meropenem secondary to UTI Previous urine culture showed sensitivity to penicillin and cephalosporins Patient currently requiring Levophed Right IJ in place Severe metabolic acidosis with acute renal failure Lundberg catheter has been placed No signs of hydronephrosis Concern for development of ATN, patient has been sick for last 7 days he has been taking her antihypertensive regimen as well Bicarb drip to be initiated Admit to ICU BMP every 12 hours Acute renal failure Currently on bicarb drip Nephrology consulted No acute indication for dialysis Stop nephrotoxic agents Sepsis induced cardiomyopathy History of established coronary disease no active chest pain EKG with dynamic changes, patient not complain of chest pain: Troponin trending down despite acute renal failure likely related to demand ischemia Evaluated by cardiology Continue Plavix As per the patient last stent in 2018 Shock liver Cholecystostomy tube will be considered if patient starts showing signs of cholecystitis Type 2 diabetes, will advance to consistent carb diet, insulin sliding scale, A1c is 12.3 If her bicarb does not improve she may need dialysis overnight Will follow-up with repeat labs Full code Admit to ICU DVT prophylaxis: Heparin 03/08/2025 CBC CMP twice daily. Bicarb drip as per nephrology. Continue on bank and meropenem. Renally dosed. Patient undergoing dialysis for severe acidosis as refractory. Patient did have evidence of shock liver with elevated liver enzymes which are trending down slowly. Will continue to check labs twice a day. She is still requiring Levophed which is secondary to severe acidosis. I hope once acidosis improves Levophed requirement will also reduce. Continue to treat for UTI. Await urine culture, blood culture Continue clear liquids. Would not advance diet till Levophed requirement comes down. Patient is okay to have ice chips and water. 03/09/2025 continue dialysis as per nephro LFTs deranged but slowly improving MRCP to be done today: 1. Normal common bile duct. No common bile duct obstruction. No intrahepatic duct dilatation. 2. Mild hepatomegaly with hepatic steatosis. Variable attenuation within the liver but no mass. 3. Small but enlarging bilateral pleural effusions. 4. Small amount of perihepatic fluid. 5. Bilateral perinephric stranding and fluid suggesting pyelonephritis. 6. Mild gallbladder wall edema may be based on hepatocellular disease and ascites. The gallbladder does not appear to be under tension. Early changes of acute cholecystitis not excluded. continue to check labs twice daily levophed off await cultures continue clear liquids and slowly advance patient has evidence of pyelonephritis, continue ABX Urine culture positive x2 diff strains of gram neg pt will need 2 weeks of IV antibiotics 03/10/2025 Dialysis as per nephrology Shock liver improving. Liver enzymes are starting to trend down. They may have reached peak. MRCP reviewed. No indication of cholecystitis. Patient is requiring Levophed intermittently. Oliguric. Urine output 75 cc overnight. Continue antibiotics at this time. Urine culture pending. Gram-negative rods 1 and 2 growing. Awaiting final culture sensitivity. Patient did have a tarry/green bowel movement overnight. Hemoglobin is stable. FOBT positive. Continue Protonix 40 IV twice daily, add sucralfate. Continue full liquid diet today. Will continue to monitor. No plan for dialysis today. Will reevaluate labs in AM. 03/11/2025 Urine culture pending FOBT positive. Continue Protonix 40 IV twice daily, add sucralfate. Continue GI soft diet Still remains oliguric. Shock liver improving. Dialysis as per nephrology. Plan for session in AM. Continue antibiotics at this time. Continue ceftriaxone as per urine culture results. Patient would like to try pilot safety inspector's and milkshakes today. We will order. Platelets have reduced from 320-120. Continue to hold heparin. Check HIT panel. Possibly low secondary to liver dysfunction? Platelet 120 range and seem to be stable. Head is one of the differentials however low suspicion. Will continue to monitor. PDMP PDMP Reviewed: Not Reviewed Attestations 2 Medical Necessity Statement*: Acute renal failure, pyelonephritis, septic shock. Diagnoses Septic shock A41.9; R65.21 DM2 (diabetes mellitus, type 2) E11.9 Sepsis A41.9 Shock R57.9 Transaminitis R74.01 Urinary tract infection N39.0 Acute pyelonephritis N10 Acute renal failure N17.9 Dehydration E86.0 Essential hypertension I10
[2025-03-11 17:41] LABS: Glucose Point of Care 173 mg/dL (70-110)
--- NOTE | 2025-03-11 18:20 | PC.NURSE ---
Shift note: Patient refusing carafate, educated patient on importance of taking medication. Educated patient on importance of turns to prevent pressure injury, buttock becoming red. Patient is refusing meals, refuses nutritional drinks, diet updated to GI soft. No dialysis today. Am plavix held. Patient is AOX4, mostly flat effect, patient states she just feels tired.
[2025-03-11 20:09] LABS: Glucose Point of Care 202 mg/dL (70-110)
[2025-03-11] MEDS: sucralfate 1 gm/10 mL Oral Liq UDC PO (21:02)
--- NOTE | 2025-03-11 21:45 | P.PN_ITS ---
Subjective 2 Subjective: Denies any complain stable vital malave denies chest pain no further bleeding as per patient Medications: Reviewed: Yes Vitals/I&O/Wt Last Vital Signs Temp 98.6 F 03/11/25 18:00 Pulse 97 03/11/25 18:00 Resp 23 H 03/11/25 18:00 BP 138/77 03/11/25 18:00 Pulse Ox 90 03/11/25 18:00 O2 Del Method Room Air 03/11/25 18:00 O2 Flow Rate 2 03/11/25 07:45 03/11/25 03/11/25 03/11/25 06:59 14:59 22:59 Intake Total 111 / 311 100 / 100 100 / 200 Output Total 75 / 150 150 / 150 Balance 36 / 161 100 / 100 -50 / 50 Weight last 48 hrs Weight 153 lb 3.54 oz Weight 153 lb 3.54 oz Physical Exam 2 Cardio: OTHER: GENERAL: Patient is alert, awake and oriented x3. HEART: Regular S1 and S2. No murmur, rub or gallop. LUNGS: Clear to auscultate bilaterally. CENTRAL NERVOUS SYSTEM: Grossly nonfocal. EXTREMITIES: Lower extremities with out edema bilaterally. Urinary Catheter Management: Lundberg: Cath Placed During This Visit: yes Reason for Continuing Indwelling Catheter: Accurate Measurement of Urinary Output in Critically Ill Patients Urinary Catheter Date of Insertion: 03/07/25 Data 03/11/25 04:37 03/11/25 04:37 A&P Assessment and plan (1) Essential hypertension: (2) Leukocytosis: Qualifiers: Leukocytosis type: leukemoid reaction Qualified Code(s): D72.823 - Leukemoid reaction (3) Elevated troponin: (4) GI bleed: Plan No cardiac symptoms Continue current management PDMP PDMP Reviewed: Not Reviewed Attestations 2 Medical Necessity Statement*: As per medicine Coding Level of Care Code Acute Code for [facility] Fwd Diagnoses Essential hypertension I10 Leukemoid reaction D72.823 Leukocytosis type: leukemoid reaction Elevated troponin R79.89 GI bleed K92.2
[2025-03-12] VITALS (38 sets, daily range): BP systolic 109–173; BP diastolic 61–114; PULSE 66–106; RESP 12–22; TEMP 36.6–37.1; O2SAT 91–98
[2025-03-12 05:24] LABS: Basophils # 0.1 10^3/uL (0.0-0.1); Basophils % 0.6 %; Eosinophils # 0.4 10^3/uL (0.0-0.8); Eosinophils % 3.8 %; Hematocrit 27.9 % (36-47); Lymphocytes % 19.5 %; Mean Corpuscular HGB Conc 30.8 g/dL (30-55); Mean Corpuscular Volume 93.9 fl (85-98); Mean Platelet Volume 11.5 fL (7.4-10.4); Monocytes % 9.7 %; Neutrophils # 6.43 10^3/uL (1.8-7.7); Neutrophils % 64.2 %; Nucleated Red Blood Cells % 0.2 %; Platelet Count 128 10^3/cmm (157-399); Red Blood Count 2.97 10^6/uL (3.85-5.65); Red Cell Distribution Width 15.1 % (12.1-15.1); White Blood Count 10.01 10^3/uL (3.29-11.43)
[2025-03-12 05:39] LABS: Alanine Aminotransferase 191 U/L (0-33); Albumin Level 2.7 g/dL (3.5-5.2); Alkaline Phosphatase 272 U/L (35-105); Anion Gap 19.1 (5-19); Aspartate Amino Transferase 316 U/L (0-32); Blood Urea Nitrogen 54 mg/dL (8-23); Calcium 8.1 mg/dL (8.5-10.5); Carbon Dioxide 22 mmol/L (22-29); Chloride 101 mmol/L (98-107); Creatinine Clr Calc Pharmacy 5.5696; Globulin 2.9 g/dL (1.3-4.6); Glomerular Filtration Rate 4.7 mL/min (90-130); Glucose 137 mg/dL (65-115); Magnesium 2.4 mg/dL (1.7-2.3); Osmolality Calculated 303 mOsm/kg (285-295); Potassium 4.1 mmol/L (3.5-5.1); Sodium 138 mmol/L (136-145); Total Bilirubin 0.3 mg/dL (0.15-1.2); Total Protein 5.6 g/dL (6.6-8.7)
[2025-03-12] MEDS: sucralfate 1 gm/10 mL Oral Liq UDC PO ×4 (07:39→20:17)
[2025-03-12 07:45] LABS: Glucose Point of Care 145 mg/dL (70-110)
[2025-03-12] MEDS: clopidogrel 75 mg Tablet PO (08:02)
[2025-03-12] MEDS: insulin lispro 100 unit/1 mL SUBCUT ×3 (08:02→21:16)
[2025-03-12] MEDS: pantoprazole 40 mg SDV IVP ×2 (08:02→17:33)
--- NOTE | 2025-03-12 09:04 | P.PN_ITS ---
<Statement entered by Rojelio Phillips MD - 03/12/25 10:00> Patient was evaluated and cared for in conjunction with an advanced practice practitioner. I personally examined the patient and reviewed the chart and all pertinent data including imaging, telemetry, and laboratory results. I discussed the patient in detail with the advanced practice practitioner. Please see their note for complete H&P testing result and agreed upon plan of care for the patient. Patient denies any complaint Stable vital GENERAL: Patient is alert, awake and oriented x3. HEART: Regular S1 and S2. No murmur, rub or gallop. LUNGS: Clear to auscultate bilaterally. CENTRAL NERVOUS SYSTEM: Grossly nonfocal. EXTREMITIES: Lower extremities with out edema bilaterally. Assessment and plan Sepsis: Resolved Elevated cardiac markers: Most likely secondary to sepsis and type II Acute on chronic renal failure: On dialysis GI bleed: No more bleeding hemoglobin stable Subjective 2 Subjective: Patient denies any chest pain/shortness of breath. Is doing well. Off pressors. Vitals/I&O/Wt Last Vital Signs Temp 97.9 F 03/12/25 08:00 Pulse 90 03/12/25 08:28 Resp 16 03/12/25 08:28 BP 139/61 03/12/25 08:00 Pulse Ox 93 03/12/25 08:28 O2 Del Method Room Air 03/12/25 08:28 O2 Flow Rate 2 03/11/25 07:45 03/11/25 03/12/25 03/12/25 22:59 06:59 14:59 Intake Total 340 / 440 240 / 680 Output Total 150 / 150 75 / 225 Balance 190 / 290 165 / 455 Weight last 48 hrs Weight 151 lb 0.266 oz Weight 153 lb 3.54 oz Physical Exam 2 Cardio: OTHER: GENERAL: Patient is alert, awake and oriented x3. HEART: Regular S1 and S2. No murmur, rub or gallop. LUNGS: Clear to auscultate bilaterally. CENTRAL NERVOUS SYSTEM: Grossly nonfocal. EXTREMITIES: Lower extremities with out edema bilaterally. Urinary Catheter Management: Lundberg: Cath Placed During This Visit: yes Reason for Continuing Indwelling Catheter: Accurate Measurement of Urinary Output in Critically Ill Patients Urinary Catheter Date of Insertion: 03/07/25 Data 03/12/25 04:23 03/12/25 04:23 A&P Assessment and plan (1) Essential hypertension: (2) Leukocytosis: Qualifiers: Leukocytosis type: leukemoid reaction Qualified Code(s): D72.823 - Leukemoid reaction (3) Elevated troponin: (4) GI bleed: Plan No cardiac symptoms Continue current management PDMP PDMP Reviewed: Not Reviewed Attestations 2 Medical Necessity Statement*: Deferred to primary Coding Level of Care Code Acute Code for [facility] Fwd Diagnoses Essential hypertension I10 Leukemoid reaction D72.823 Leukocytosis type: leukemoid reaction Elevated troponin R79.89 GI bleed K92.2
[2025-03-12] MEDS: heparin, porcine 1,000 unit/mL INJ 10 mL 10000 UNIT INTRACATH (09:25)
[2025-03-12] MEDS: heparin, porcine 1,000 unit/mL INJ 10 mL 1000 UNIT IV (09:25)
--- NOTE | 2025-03-12 09:48 | P.PN_ITS ---
Subjective 2 Subjective: Chart reviewed. 69-year-old lady with a history of diabe michaela, hypertension, coronary artery disease last stents placed in 2019 currently admitted to the hospital since March 07, 2025 after presenting with generalized weakness, acute kidney failure, diagnosed to have UTI and septic shock on admission. A temporary dialysis catheter was placed on March 07, 2025 and patient initiated hemodialysis via femoral line on this day. She has remained in the ICU since then. Urine culture showed growth of Klebsiella and E. coli for which she is currently on ceftriaxone. She is currently off pressors however kidney function has not yet recovered. She remains oliguric. Was noted to have elevated LFTs upon admission, concern for potential cholecystitis initially, this was ruled out with MRCP. LFTs have improved since then. She has thrombocytopenia with platelet count today at 128, stable since March 10, 2025. Heparin was on hold due to potential concern for HIT. In reviewing past numbers patient has had platelet count as low as 126 in the past from June 2024. Medications: Reviewed: Yes Vitals/I&O/Wt Last Vital Signs Temp 97.9 F 03/12/25 08:00 Pulse 90 03/12/25 08:28 Resp 16 03/12/25 08:28 BP 139/61 03/12/25 08:00 Pulse Ox 93 03/12/25 08:28 O2 Del Method Room Air 03/12/25 08:28 O2 Flow Rate 2 03/11/25 07:45 03/11/25 03/12/25 03/12/25 22:59 06:59 14:59 Intake Total 340 / 440 240 / 680 400 / 400 Output Total 150 / 150 75 / 225 Balance 190 / 290 165 / 455 400 / 400 Weight last 48 hrs Weight 68.5 kg Weight 69.5 kg Physical Exam 2 Narrative: General: No acute distress, AO x3 HEENT: PERRLA, pupils bilaterally equal and reactive, pallors not present Chest: Normal vesicular breath sounds, no added sounds, equal good air entry bilaterally CVS: S1-S2 regular, no murmurs, no tachycardia, no gallops, no rubs Abdomen: Soft, nontender, no organomegaly, bowel sounds present Neuro: No focal deficits, no facial deformity, AO x3, power 5/5 in all limbs Extremities: Right IJ central line in place. Urinary Catheter Management: Lundberg: Cath Placed During This Visit: yes Reason for Continuing Indwelling Catheter: Accurate Measurement of Urinary Output in Critically Ill Patients Urinary Catheter Date of Insertion: 03/07/25 Data 03/12/25 04:23 03/12/25 04:23 A&P Assessment and plan (1) Septic shock: (2) DM2 (diabetes mellitus, type 2): (3) Sepsis: (4) Shock: (5) Transaminitis: (6) Urinary tract infection: (7) Acute pyelonephritis: (8) Acute renal failure: (9) Dehydration: (10) Essential hypertension: Plan Septic shock Criteria met with tachypnea tachycardia leukocytosis high lactic acid with endorgan damage Septic bolus to be administered Initiation of meropenem secondary to UTI Previous urine culture showed sensitivity to penicillin and cephalosporins Patient currently requiring Levophed Right IJ in place Severe metabolic acidosis with acute renal failure Lundberg catheter has been placed No signs of hydronephrosis Concern for development of ATN, patient has been sick for last 7 days he has been taking her antihypertensive regimen as well Bicarb drip to be initiated Admit to ICU BMP every 12 hours Acute renal failure Currently on bicarb drip Nephrology consulted No acute indication for dialysis Stop nephrotoxic agents Sepsis induced cardiomyopathy History of established coronary disease no active chest pain EKG with dynamic changes, patient not complain of chest pain: Troponin trending down despite acute renal failure likely related to demand ischemia Evaluated by cardiology Continue Plavix As per the patient last stent in 2018 Shock liver Cholecystostomy tube will be considered if patient starts showing signs of cholecystitis Type 2 diabetes, will advance to consistent carb diet, insulin sliding scale, A1c is 12.3 If her bicarb does not improve she may need dialysis overnight Will follow-up with repeat labs Full code Admit to ICU DVT prophylaxis: Heparin 03/08/2025 CBC CMP twice daily. Bicarb drip as per nephrology. Continue on bank and meropenem. Renally dosed. Patient undergoing dialysis for severe acidosis as refractory. Patient did have evidence of shock liver with elevated liver enzymes which are trending down slowly. Will continue to check labs twice a day. She is still requiring Levophed which is secondary to severe acidosis. I hope once acidosis improves Levophed requirement will also reduce. Continue to treat for UTI. Await urine culture, blood culture Continue clear liquids. Would not advance diet till Levophed requirement comes down. Patient is okay to have ice chips and water. 03/09/2025 continue dialysis as per nephro LFTs deranged but slowly improving MRCP to be done today: 1. Normal common bile duct. No common bile duct obstruction. No intrahepatic duct dilatation. 2. Mild hepatomegaly with hepatic steatosis. Variable attenuation within the liver but no mass. 3. Small but enlarging bilateral pleural effusions. 4. Small amount of perihepatic fluid. 5. Bilateral perinephric stranding and fluid suggesting pyelonephritis. 6. Mild gallbladder wall edema may be based on hepatocellular disease and ascites. The gallbladder does not appear to be under tension. Early changes of acute cholecystitis not excluded. continue to check labs twice daily levophed off await cultures continue clear liquids and slowly advance patient has evidence of pyelonephritis, continue ABX Urine culture positive x2 diff strains of gram neg pt will need 2 weeks of IV antibiotics 03/10/2025 Dialysis as per nephrology Shock liver improving. Liver enzymes are starting to trend down. They may have reached peak. MRCP reviewed. No indication of cholecystitis. Patient is requiring Levophed intermittently. Oliguric. Urine output 75 cc overnight. Continue antibiotics at this time. Urine culture pending. Gram-negative rods 1 and 2 growing. Awaiting final culture sensitivity. Patient did have a tarry/green bowel movement overnight. Hemoglobin is stable. FOBT positive. Continue Protonix 40 IV twice daily, add sucralfate. Continue full liquid diet today. Will continue to monitor. No plan for dialysis today. Will reevaluate labs in AM. 03/11/2025 Urine culture pending FOBT positive. Continue Protonix 40 IV twice daily, add sucralfate. Continue GI soft diet Still remains oliguric. Shock liver improving. Dialysis as per nephrology. Plan for session in AM. Continue antibiotics at this time. Continue ceftriaxone as per urine culture results. Patient would like to try system support technician's and milkshakes today. We will order. Platelets have reduced from 320-120. Continue to hold heparin. Check HIT panel. Possibly low secondary to liver dysfunction? Platelet 120 range and seem to be stable. Head is one of the differentials however low suspicion. Will continue to monitor. March 12, 2025 69-year-old lady with a history of diabetes, hypertension, coronary artery disease last stents placed in 2019 currently admitted to the hospital since March 07, 2025 after presenting with generalized weakness, acute kidney failure, diagnosed to have UTI and septic shock on admission. A temporary dialysis catheter was placed on March 07, 2025 and patient initiated hemodialysis via femoral line on this day. She has remained in the ICU since then. Urine culture showed growth of Klebsiella and E. coli for which she is currently on ceftriaxone. She is currently off pressors however kidney function has not yet recovered. She remains oliguric. Was noted to have elevated LFTs upon admission, concern for potential cholecystitis initially, this was ruled out with MRCP. LFTs have improved since then. She has thrombocytopenia with platelet count today at 128, stable since March 10, 2025. Heparin was on hold due to potential concern for HIT. In reviewing past numbers patient has had platelet count as low as 126 in the past from June 2024. Less likely to be HIT. May be related to acute illness. Hemoglobin currently at 9.1, baseline appears to be between 11-13.6. Fecal occult blood testing is positive. Heparin has remained on hold. No kimani melena or hematemesis. Blood culture remains negative to date. CT of the abdomen and pelvis was negative for any hydronephrosis. Ultrasound of the abdomen Doppler negative for any renal vein thrombosis. Noted slight peripheral nodular contour for cirrhosis. MADDY screen from 2023 was negative. Acute hepatitis panel is negative. Creatinine today at 8.5, patient remains oliguric. Patient is likely going to need dialysis in the upcoming weeks to months. Discussed extensively with patient and her at bedside that at this time it is difficult to predict how long she may need to remain on dialysis. As of now anticipating at least needing dialysis over the next few weeks to few months. Will proceed with placement of a tunneled HD catheter. Surgery consulted for the same. She will need to be set up with outpatient dialysis. Discussed with welfare case worker. Check serum and urine electrophoresis for potential multiple myeloma given acute kidney failure and anemia noted this admission. Urine culture is showing pansensitive Klebsiella and E. coli isolates. Plan transition to oral antibiotics at the time of discharge. Continue Protonix 40 mg IV twice daily and sucralfate as already started. Will likely need an endoscopy as an outpatient given questionable cirrhosis and FOBT positive stools to evaluate for any underlying varices or gastritis. Endoscopy may need to be reconsidered as inpatient if hemoglobin continues to fall as patient is also on Plavix currently. Transfer out of ICU to [facility]. Discontinue central line as it has been in place since admission and switch to peripheral IV access. PDMP PDMP Reviewed: Not Reviewed Attestations 2 Medical Necessity Statement*: Needs continued admission for renal failure, transition to tunneled HD catheter, needs to be set up for outpatient dialysis. Coding Level of Care Code Acute Code for [facility] Fwd Diagnoses Septic shock A41.9; R65.21 DM2 (diabetes mellitus, type 2) E11.9 Sepsis A41.9 Shock R57.9 Transaminitis R74.01 Urinary tract infection N39.0 Acute pyelonephritis N10 Acute renal failure N17.9 Dehydration E86.0 Essential hypertension I10
[2025-03-12 11:11] LABS: Glucose Point of Care 138 mg/dL (70-110)
--- NOTE | 2025-03-12 11:28 | P.PN_ITS ---
Subjective 2 Subjective: getting hD Medications: Reviewed: Yes Vitals/I&O/Wt Last Vital Signs Temp 98.4 F 03/12/25 10:24 Pulse 93 03/12/25 10:24 Resp 19 H 03/12/25 10:24 BP 159/78 03/12/25 10:24 Pulse Ox 92 03/12/25 10:00 O2 Del Method Room Air 03/12/25 10:00 O2 Flow Rate 2 03/11/25 07:45 03/11/25 03/12/25 03/12/25 22:59 06:59 14:59 Intake Total 340 / 440 240 / 680 400 / 400 Output Total 150 / 150 75 / 225 Balance 190 / 290 165 / 455 400 / 400 Weight last 48 hrs Weight 68.5 kg Weight 69.5 kg Physical Exam 2 Narrative: Patient is awake alert, no distress, on 2 L O2 by nasal cannula PERRLA S1-S2 regular rate and rhythm per report Lungs clear bilaterally per report Abdomen soft nontender per report No pedal edema Urinary Catheter Management: Lundberg: Cath Placed During This Visit: yes Reason for Continuing Indwelling Catheter: Accurate Measurement of Urinary Output in Critically Ill Patients Urinary Catheter Date of Insertion: 03/07/25 Data 03/12/25 04:23 03/12/25 04:23 Micro: Microbiology 03/07/25 11:05 Blood Culture - Final Blood NO GROWTH AFTER 5 DAYS 03/07/25 11:02 Blood Culture - Final Blood NO GROWTH AFTER 5 DAYS A&P Assessment and plan (1) Acute renal failure: Plan 1. Acute kidney injury superimposed on CKD stage III: Baseline creatinine in the 1.1-1.2 range, last in August 2024. Now has severe CARLOS with a creatinine of 9.7 and associated with severe metabolic acidosis. Patient oliguric . Despite bicarbonate drip and IV fluid resuscitation her metabolic acidosis has not improved and discussed with patient regarding temporary dialysis. Temporary HD catheter was placed and initiated HD. -s/p HD X 5 sessions , on Room air currently -HD today - No renal recovery , needs tunnelled catheter placement - Monitor renal fxn and UOP 2. Severe metabolic acidosis: With anion gap, likely in the setting of sepsis and CARLOS. HD as above, improved 3. Sepsis likely pyelonephritis, 4. Shock, hypotension, on pressors 5. History of coronary artery disease 6. Shock liver in the setting of sepsis, 7. Hypokalemia : Replete 8. GI bleed Patient evaluated using audiovisual cart. Time spent 40-minutes PDMP PDMP Reviewed: Not Reviewed Attestations 2 Medical Necessity Statement*: per kwame Coding Level of Care Code Acute Code for Chg Fwd Diagnoses Acute renal failure N17.9
--- NOTE | 2025-03-12 12:04 | P.PN_ITS ---
Subjective 2 Subjective: Nephrology requesting tunneled dialysis catheter Vitals/I&O/Wt Last Vital Signs Temp 98.4 F 03/12/25 10:24 Pulse 93 03/12/25 10:24 Resp 19 H 03/12/25 10:24 BP 159/78 03/12/25 10:24 Pulse Ox 92 03/12/25 10:00 O2 Del Method Room Air 03/12/25 10:00 O2 Flow Rate 2 03/11/25 07:45 03/11/25 03/12/25 03/12/25 22:59 06:59 14:59 Intake Total 340 / 440 240 / 680 400 / 400 Output Total 150 / 150 75 / 225 Balance 190 / 290 165 / 455 400 / 400 Weight last 48 hrs Weight 151 lb 0.266 oz Weight 153 lb 3.54 oz Physical Exam 2 Narrative: Chest: Unlabored breathing room air. No lymphadenopathy. Heart: Regular rate and rhythm. Abdomen: Soft, nontender, nondistended. No masses or lymphadenopathy. Right groin dialysis catheter functional Urinary Catheter Management: Lnudberg: Cath Placed During This Visit: yes Reason for Continuing Indwelling Catheter: Accurate Measurement of Urinary Output in Critically Ill Patients Urinary Catheter Date of Insertion: 03/07/25 Data 03/12/25 04:23 03/12/25 04:23 Micro: Microbiology 03/07/25 11:05 Blood Culture - Final Blood NO GROWTH AFTER 5 DAYS 03/07/25 11:02 Blood Culture - Final Blood NO GROWTH AFTER 5 DAYS A&P Assessment and plan (1) Acute renal failure: Plan 69-year-old female in acute renal failure. Nephrology requesting tunneled dialysis catheter. Will proceed with tunneled dialysis catheter placement 03/13/2025. Discussed with hospitalist. N.p.o. after midnight. PDMP PDMP Reviewed: Not Reviewed Attestations 2 Medical Necessity Statement*: N/A Coding Level of Care Code 92688 Diagnoses Acute renal failure N17.9
[2025-03-12] MEDS: cefTRIAXone 1,000 mg SDV 1000 MG IVP (12:38)
--- NOTE | 2025-03-12 13:41 | PC.NURSE ---
Report given to BENIGNO Jenkins. Transferred patient to [facility] via bed. Tolerated well, at bedside.
[2025-03-12 17:28] LABS: Glucose Point of Care 153 mg/dL (70-110)
[2025-03-12] MEDS: metoprolol tartrate 25 mg Tablet 12.5 MG PO (20:16)
[2025-03-12 20:50] LABS: Glucose Point of Care 284 mg/dL (70-110)
[2025-03-13] VITALS (14 sets, daily range): BP systolic 122–168; BP diastolic 67–99; PULSE 78–92; RESP 14–22; TEMP 36.1–37.1; O2SAT 90–97
[2025-03-13 06:04] LABS: Basophils # 0.1 10^3/uL (0.0-0.1); Basophils % 0.8 %; Eosinophils # 0.5 10^3/uL (0.0-0.8); Hematocrit 27.6 % (36-47); Lymphocytes # 2.3 10^3/uL (0.8-4.8); Lymphocytes % 18.8 %; Mean Corpuscular HGB Conc 31.5 g/dL (30-55); Mean Corpuscular Hemoglobin 29.3 pg (27-33); Mean Corpuscular Volume 92.9 fl (85-98); Mean Platelet Volume 11.7 fL (7.4-10.4); Monocytes # 1.3 10^3/uL (0.2-0.9); Monocytes % 10.9 %; Neutrophils # 7.43 10^3/uL (1.8-7.7); Neutrophils % 61.4 %; Nucleated Red Blood Cells % 0 %; Platelet Count 132 10^3/cmm (157-399); Red Blood Count 2.97 10^6/uL (3.85-5.65); White Blood Count 12.11 10^3/uL (3.29-11.43)
[2025-03-13] MEDS: sucralfate 1 gm/10 mL Oral Liq UDC PO ×3 (06:21→20:44)
[2025-03-13 06:26] LABS: Alanine Aminotransferase 152 U/L (0-33); Albumin Level 2.6 g/dL (3.5-5.2); Alkaline Phosphatase 280 U/L (35-105); Anion Gap 19.2 (5-19); Aspartate Amino Transferase 228 U/L (0-32); Blood Urea Nitrogen 45 mg/dL (8-23); Calcium 8.2 mg/dL (8.5-10.5); Carbon Dioxide 21 mmol/L (22-29); Chloride 101 mmol/L (98-107); Globulin 3.1 g/dL (1.3-4.6); Glomerular Filtration Rate 5.6 mL/min (90-130); Glucose 144 mg/dL (65-115); Osmolality Calculated 298 mOsm/kg (285-295); Potassium 4.2 mmol/L (3.5-5.1); Sodium 137 mmol/L (136-145); Total Bilirubin 0.3 mg/dL (0.15-1.2); Total Protein 5.7 g/dL (6.6-8.7)
[2025-03-13 06:32] LABS: Glucose Point of Care 85 mg/dL (70-110)
[2025-03-13] MEDS: metoprolol tartrate 25 mg Tablet 12.5 MG PO ×2 (08:34→20:44)
[2025-03-13] MEDS: pantoprazole 40 mg SDV IVP ×2 (08:34→18:20)
[2025-03-13 09:15] LABS: Glucose Point of Care 134 mg/dL (70-110)
--- NOTE | 2025-03-13 10:15 | P.PN_ITS ---
<Statement entered by Rojelio Phillips MD - 03/22/25 20:20> Patient was evaluated and cared for in conjunction with an advanced practice practitioner. I personally examined the patient and reviewed the chart and all pertinent data including imaging, telemetry, and laboratory results. I discussed the patient in detail with the advanced practice practitioner. Please see their note for complete H&P testing result and agreed upon plan of care for the patient. Subjective 2 Subjective: Patient was seen this morning. Denies chest pain or shortness of breath. She looks well. Vitals/I&O/Wt Last Vital Signs Temp 98.5 F 03/13/25 07:48 Pulse 90 03/13/25 07:48 Resp 16 03/13/25 07:48 BP 148/85 03/13/25 07:48 Pulse Ox 90 03/13/25 07:48 O2 Del Method Room Air 03/13/25 07:48 O2 Flow Rate 2 03/11/25 07:45 03/12/25 03/13/25 03/13/25 22:59 06:59 14:59 Intake Total 480 / 1680 Output Total 300 / 3238 Balance 180 / -1558 Weight last 48 hrs Weight 147 lb 14.883 oz Weight 148 lb 12.992 oz Weight 151 lb 0.266 oz Physical Exam 2 Cardio: OTHER: GENERAL: Patient is alert, awake and oriented x3. HEART: Regular S1 and S2. No murmur, rub or gallop. LUNGS: Clear to auscultate bilaterally. CENTRAL NERVOUS SYSTEM: Grossly nonfocal. EXTREMITIES: Lower extremities with out edema bilaterally. Urinary Catheter Management: Lundberg: Cath Placed During This Visit: yes Reason for Continuing Indwelling Catheter: Required Immobilization for Trauma or Surgery or Anesthesia Urinary Catheter Date of Insertion: 03/07/25 Data 03/13/25 05:46 03/13/25 05:46 Micro: Microbiology 03/07/25 11:05 Blood Culture - Final Blood NO GROWTH AFTER 5 DAYS 03/07/25 11:02 Blood Culture - Final Blood NO GROWTH AFTER 5 DAYS A&P Assessment and plan (1) Essential hypertension: (2) Leukocytosis: Qualifiers: Leukocytosis type: leukemoid reaction Qualified Code(s): D72.823 - Leukemoid reaction (3) Elevated troponin: (4) GI bleed: Plan No cardiac symptoms Continue current management Beta ofelia added yesterday. Patient is doing well with this. PDMP PDMP Reviewed: Not Reviewed Attestations 2 Medical Necessity Statement*: Deferred to primary. Coding Level of Care Code Acute Code for Chg Fwd Diagnoses Essential hypertension I10 Leukemoid reaction D72.823 Leukocytosis type: leukemoid reaction Elevated troponin R79.89 GI bleed K92.2
--- NOTE | 2025-03-13 10:56 | P.PN_ITS ---
Subjective 2 Subjective: Getting tunneled dialysis catheter today Temporary dialysis catheter in right groin is working. Vitals/I&O/Wt Last Vital Signs Temp 98.5 F 03/13/25 07:48 Pulse 90 03/13/25 07:48 Resp 16 03/13/25 07:48 BP 148/85 03/13/25 07:48 Pulse Ox 90 03/13/25 07:48 O2 Del Method Room Air 03/13/25 07:48 O2 Flow Rate 2 03/11/25 07:45 03/12/25 03/13/25 03/13/25 22:59 06:59 14:59 Intake Total 480 / 1680 Output Total 300 / 3238 Balance 180 / -1558 Weight last 48 hrs Weight 147 lb 14.883 oz Weight 148 lb 12.992 oz Weight 151 lb 0.266 oz Physical Exam 2 Narrative: Chest: Unlabored breathing room air. No lymphadenopathy. Heart: Regular rate and rhythm. Abdomen: Soft, nontender, nondistended. No masses or lymphadenopathy. Right groin catheter functional Urinary Catheter Management: Lundberg: Cath Placed During This Visit: yes Reason for Continuing Indwelling Catheter: Required Immobilization for Trauma or Surgery or Anesthesia Urinary Catheter Date of Insertion: 03/07/25 Data 03/13/25 05:46 03/13/25 05:46 Micro: Microbiology 03/07/25 11:05 Blood Culture - Final Blood NO GROWTH AFTER 5 DAYS 03/07/25 11:02 Blood Culture - Final Blood NO GROWTH AFTER 5 DAYS A&P Assessment and plan (1) Acute renal failure: Plan 69-year-old female admitted with renal failure. Discussed risk and benefits and patient agrees to proceed with tunneled dialysis catheter placement. PDMP PDMP Reviewed: Not Reviewed Attestations 2 Medical Necessity Statement*: N/A Coding Level of Care Code 64319 Diagnoses Acute renal failure N17.9
[2025-03-13 11:31] LABS: Glucose Point of Care 132 mg/dL (70-110)
--- NOTE | 2025-03-13 13:05 | P.PN_ITS ---
Subjective 2 Subjective: Last febrile 03/09/2025.Afebrile since then. Currently hemodynamically stable. Plan for tunneled HD catheter placement today. Medications: Reviewed: Yes Vitals/I&O/Wt Last Vital Signs Temp 98.8 F 03/13/25 11:04 Pulse 84 03/13/25 11:04 Resp 15 03/13/25 11:04 BP 137/67 03/13/25 11:04 Pulse Ox 92 03/13/25 11:04 O2 Del Method Room Air 03/13/25 11:04 O2 Flow Rate 2 03/11/25 07:45 03/12/25 03/13/25 03/13/25 22:59 06:59 14:59 Intake Total 480 / 1680 Output Total 300 / 3238 Balance 180 / -1558 Weight last 48 hrs Weight 67.1 kg Weight 67.5 kg Weight 68.5 kg Physical Exam 2 Narrative: General: No acute distress, AO x3 HEENT: PERRLA, pupils bilaterally equal and reactive, pallors not present Chest: Normal vesicular breath sounds, no added sounds, equal good air entry bilaterally CVS: S1-S2 regular, no murmurs, no tachycardia, no gallops, no rubs Abdomen: Soft, nontender, no organomegaly, bowel sounds present Neuro: No focal deficits, no facial deformity, AO x3, power 5/5 in all limbs Extremities: Right IJ central line removed Urinary Catheter Management: Lundberg: Cath Placed During This Visit: yes Reason for Continuing Indwelling Catheter: Required Immobilization for Trauma or Surgery or Anesthesia Urinary Catheter Date of Insertion: 03/07/25 Data 03/13/25 05:46 03/13/25 05:46 Micro: Microbiology 03/07/25 11:05 Blood Culture - Final Blood NO GROWTH AFTER 5 DAYS 03/07/25 11:02 Blood Culture - Final Blood NO GROWTH AFTER 5 DAYS A&P Assessment and plan (1) Septic shock: (2) DM2 (diabetes mellitus, type 2): (3) Sepsis: (4) Shock: (5) Transaminitis: (6) Urinary tract infection: (7) Acute pyelonephritis: (8) Acute renal failure: (9) Dehydration: (10) Essential hypertension: Plan Septic shock Criteria met with tachypnea tachycardia leukocytosis high lactic acid with endorgan damage Septic bolus to be administered Initiation of meropenem secondary to UTI Previous urine culture showed sensitivity to penicillin and cephalosporins Patient currently requiring Levophed Right IJ in place Severe metabolic acidosis with acute renal failure Lundberg catheter has been placed No signs of hydronephrosis Concern for development of ATN, patient has been sick for last 7 days he has been taking her antihypertensive regimen as well Bicarb drip to be initiated Admit to ICU BMP every 12 hours Acute renal failure Currently on bicarb drip Nephrology consulted No acute indication for dialysis Stop nephrotoxic agents Sepsis induced cardiomyopathy History of established coronary disease no active chest pain EKG with dynamic changes, patient not complain of chest pain: Troponin trending down despite acute renal failure likely related to demand ischemia Evaluated by cardiology Continue Plavix As per the patient last stent in 2019 Shock liver Cholecystostomy tube will be considered if patient starts showing signs of cholecystitis Type 2 diabetes, will advance to consistent carb diet, insulin sliding scale, A1c is 12.3 If her bicarb does not improve she may need dialysis overnight Will follow-up with repeat labs Full code Admit to ICU DVT prophylaxis: Heparin 03/08/2025 CBC CMP twice daily. Bicarb drip as per nephrology. Continue on bank and meropenem. Renally dosed. Patient undergoing dialysis for severe acidosis as refractory. Patient did have evidence of shock liver with elevated liver enzymes which are trending down slowly. Will continue to check labs twice a day. She is still requiring Levophed which is secondary to severe acidosis. I hope once acidosis improves Levophed requirement will also reduce. Continue to treat for UTI. Await urine culture, blood culture Continue clear liquids. Would not advance diet till Levophed requirement comes down. Patient is okay to have ice chips and water. 03/09/2025 continue dialysis as per nephro LFTs deranged but slowly improving MRCP to be done today: 1. Normal common bile duct. No common bile duct obstruction. No intrahepatic duct dilatation. 2. Mild hepatomegaly with hepatic steatosis. Variable attenuation within the liver but no mass. 3. Small but enlarging bilateral pleural effusions. 4. Small amount of perihepatic fluid. 5. Bilateral perinephric stranding and fluid suggesting pyelonephritis. 6. Mild gallbladder wall edema may be based on hepatocellular disease and ascites. The gallbladder does not appear to be under tension. Early changes of acute cholecystitis not excluded. continue to check labs twice daily levophed off await cultures continue clear liquids and slowly advance patient has evidence of pyelonephritis, continue ABX Urine culture positive x2 diff strains of gram neg pt will need 2 weeks of IV antibiotics 03/10/2025 Dialysis as per nephrology Shock liver improving. Liver enzymes are starting to trend down. They may have reached peak. MRCP reviewed. No indication of cholecystitis. Patient is requiring Levophed intermittently. Oliguric. Urine output 75 cc overnight. Continue antibiotics at this time. Urine culture pending. Gram-negative rods 1 and 2 growing. Awaiting final culture sensitivity. Patient did have a tarry/green bowel movement overnight. Hemoglobin is stable. FOBT positive. Continue Protonix 40 IV twice daily, add sucralfate. Continue full liquid diet today. Will continue to monitor. No plan for dialysis today. Will reevaluate labs in AM. 03/11/2025 Urine culture pending FOBT positive. Continue Protonix 40 IV twice daily, add sucralfate. Continue GI soft diet Still remains oliguric. Shock liver improving. Dialysis as per nephrology. Plan for session in AM. Continue antibiotics at this time. Continue ceftriaxone as per urine culture results. Patient would like to try motion picture critic's and milkshakes today. We will order. Platelets have reduced from 320-120. Continue to hold heparin. Check HIT panel. Possibly low secondary to liver dysfunction? Platelet 120 range and seem to be stable. Head is one of the differentials however low suspicion. Will continue to monitor. March 12, 2025 69-year-old lady with a history of diabetes, hypertension, coronary artery disease last stents placed in 2019 currently admitted to the hospital since March 07, 2025 after presenting with generalized weakness, acute kidney failure, diagnosed to have UTI and septic shock on admission. A temporary dialysis catheter was placed on March 07, 2025 and patient initiated hemodialysis via femoral line on this day. She has remained in the ICU since then. Urine culture showed growth of Klebsiella and E. coli for which she is currently on ceftriaxone. She is currently off pressors however kidney function has not yet recovered. She remains oliguric. Was noted to have elevated LFTs upon admission, concern for potential cholecystitis initially, this was ruled out with MRCP. LFTs have improved since then. She has thrombocytopenia with platelet count today at 128, stable since March 10, 2025. Heparin was on hold due to potential concern for HIT. In reviewing past numbers patient has had platelet count as low as 126 in the past from June 2024. Less likely to be HIT. May be related to acute illness. Hemoglobin currently at 9.1, baseline appears to be between 11-13.6. Fecal occult blood testing is positive. Heparin has remained on hold. No kimani melena or hematemesis. Blood culture remains negative to date. CT of the abdomen and pelvis was negative for any hydronephrosis. Ultrasound of the abdomen Doppler negative for any renal vein thrombosis. Noted slight peripheral nodular contour for cirrhosis. MADDY screen from 2023 was negative. Acute hepatitis panel is negative. Creatinine today at 8.5, patient remains oliguric. Patient is likely going to need dialysis in the upcoming weeks to months. Discussed extensively with patient and her at bedside that at this time it is difficult to predict how long she may need to remain on dialysis. As of now anticipating at least needing dialysis over the next few weeks to few months. Will proceed with placement of a tunneled HD catheter. Surgery consulted for the same. She will need to be set up with outpatient dialysis. Discussed with director case management. Check serum and urine electrophoresis for potential multiple myeloma given acute kidney failure and anemia noted this admission. Urine culture is showing pansensitive Klebsiella and E. coli isolates. Plan transition to oral antibiotics at the time of discharge. Continue Protonix 40 mg IV twice daily and sucralfate as already started. Will likely need an endoscopy as an outpatient given questionable cirrhosis and FOBT positive stools to evaluate for any underlying varices or gastritis. Endoscopy may need to be reconsidered as inpatient if hemoglobin continues to fall as patient is also on Plavix currently. Transfer out of ICU to [facility] [place] [place]. Discontinue central line as it has been in place since admission and switch to peripheral IV access. March 13, 2025 No acute interim events. Stable liver enzymes. Creatinine at 7.2. Plan for tunneled HD catheter placement this afternoon. Patient will be initiated on 3 times a week dialysis. Outpatient chair time is being arranged by case management. Hemoglobin remains stable. Will plan to start first session of dialysis via tunneled cath while here in the hospital. Will need tunneled line once permacath is placed. Right IJ central line has been removed. Continue ceftriaxone 1 g IV every 24 hours for UTI. Transition to oral ciprofloxacin at the time of discharge. PDMP PDMP Reviewed: Not Reviewed Attestations 2 Medical Necessity Statement*: Tunneled HD catheter placement today. Coding Level of Care Code Acute Code for Chg Fwd Diagnoses Septic shock A41.9; R65.21 DM2 (diabetes mellitus, type 2) E11.9 Sepsis A41.9 Shock R57.9 Transaminitis R74.01 Urinary tract infection N39.0 Acute pyelonephritis N10 Acute renal failure N17.9 Dehydration E86.0 Essential hypertension I10
[2025-03-13 13:16] LABS: Glucose Point of Care 148 mg/dL (70-110)
[2025-03-13] MEDS: sodium chloride 0.9% 1,000 ML 30 ML IV (13:24)
[2025-03-13] MEDS: cefTRIAXone 1,000 mg SDV 1000 MG IVP (13:26)
--- NOTE | 2025-03-13 13:30 | SC_ITS ---
WS: [id number] Insertion dialysis catheter, C-arm fluoroscopy views, 03/13/2025 Clinical Data: intraoperative Comparison: Portable chest, 03/09/2025 Findings: Dr. Velasquez inserted a right dialysis catheter. SC/C-arm FL for CVA [id number] Impression: Insertion right dialysis catheter.
--- NOTE | 2025-03-13 14:05 | ANES.PREANE2 ---
Pre-Anesthetic Assessment Height/Weight: Height 1.55 m Weight 67.1 kg Temp Pulse Resp BP Pulse Ox O2 Del Method O2 Flow Rate 97.5 F L 81 18 168/75 95 Room Air 2 03/13/25 13:16 03/13/25 13:16 03/13/25 13:16 03/13/25 13:16 03/13/25 13:16 03/13/25 13:16 03/11/25 07:45 Operation Date: 03/13/25 14:30 Proposed Procedures p Dialysis Catheter Insertion(Not Applicable) - Luis M Velasquez MD Last intake: Intake Last Liquid Date 03/12/25 Last Solid Date 03/12/25 Social No alcohol and No tobacco Exam alert, oriented x 3, clear to auscultation bilaterally and regular rate & rhythm Airway Submandibular: within normal limits Cervical ROM: within normal limits Mallampati: Class I Comments: Comments: Edentulous Pulmonary Chronic Obstructive Pulmonary Disease CV/HEM Coronary Artery Disease and Myocardial Infarction Chronic Renal Failure Pyelonephritis Metabolic Diabetes Mellitus and Hyperlipidemia Musc/skel Osteoarthritis/DJD Anesthetic Plan ASA status: 3 Anesthesia: MAC Medications/Allergies Home Medications ?Medication ?Instructions ?Recorded ?Confirmed ?Last Taken ?Type montelukast 10 mg tablet 10 mg PO QAM 05/07/20 03/07/25 07/24/24 History (Singulair) omeprazole 40 mg capsule,delayed 40 mg PO QAM 05/07/20 03/07/25 07/24/24 History release budesonide-formoterol HFA 160 1 puff inhalation BID 01/20/24 03/07/25 07/24/24 History mcg-4.5 mcg/actuation aerosol inhaler (Symbicort) gabapentin 800 mg tablet 800 mg PO QID 01/20/24 03/07/25 07/24/24 History ropinirole 0.25 mg tablet 25 mg PO QPM 01/20/24 03/07/25 07/23/24 History rosuvastatin 40 mg tablet 40 mg PO QPM 01/20/24 03/07/25 07/23/24 History insulin aspart U-100 100 unit/mL See Rx Instructions .Route 02/07/24 03/07/25 07/24/24 Rx (3 mL) subcutaneous pen (Novolog .COMPLEX PRN Hyperglycemia #15 mL FlexPen U-100 Insulin aspart) clopidogrel 75 mg tablet 75 mg PO DAILY 05/10/24 03/07/25 07/24/24 History sitagliptin phosphate 50 1 tab PO BID 08/18/24 03/07/25 Unknown History mg-metformin 500 mg tablet (Novleobardo) lisinopril 20 mg tablet 10 mg (1/2 x 20 mg) PO QAM #45 tabs 12/04/24 03/07/25 Unknown Rx metoprolol tartrate 25 mg tablet 25 mg PO BID #90 tabs 12/04/24 03/07/25 Unknown Rx ondansetron 8 mg disintegrating 8 mg PO BID 03/07/25 03/07/25 Unknown History tablet tirzepatide 5 mg/0.5 mL 5 mg SUBCUT Q7D 03/07/25 03/07/25 Unknown History subcutaneous pen injector (Alaina) Allergies Allergy/AdvReac Type Severity Reaction Status Date / Time oak Allergy Mild ALGY-Nasal Verified 02/26/25 15:11 Discharge Penicillins Allergy ALGY-Rash Verified 02/26/25 15:11 Current Medications Generic Name Dose Route Start Last Admin Trade Name Freq PRN Reason Stop Dose Admin Ceftriaxone Sodium 1,000 mg 03/10/25 13:00 03/13/25 13:26 Ceftriaxone 1,000 Mg Sdv IVP 1,000 mg Q24H KENDALL Administration Protocol Clopidogrel Bisulfate 75 mg 03/08/25 09:00 03/13/25 08:28 Clopidogrel 75 Mg Tablet PO Not Given DAILY KENDALL Sodium Chloride 1,000 mls @ 30 mls/hr 03/13/25 13:15 03/13/25 13:24 Sodium Chloride 0.9% IV 03/14/25 13:14 30 mls/hr .Q24H KENDALL Administration Insulin Human Lispro 0 unit 03/09/25 00:09 03/13/25 11:42 Insulin Lispro 100 Unit/1 Ml SUBCUT Not Given WM&BEDTIME KENDALL Protocol Metoprolol Tartrate 12.5 mg 03/12/25 21:00 03/13/25 08:34 Metoprolol Tartrate 25 Mg Tablet PO 12.5 mg BID@0900,2100 KENDALL Administration Oxycodone/Acetaminophen 1 tab 03/09/25 00:08 03/09/25 00:24 Oxycodone-Apap 5-325 Mg Tablet PO 1 tab Q4H PRN Administration MODERATE PAIN Pantoprazole Sodium 40 mg 03/07/25 18:00 03/13/25 08:34 Pantoprazole 40 Mg Sdv IVP 40 mg BID KENDALL Administration Sucralfate 1 gm 03/10/25 11:00 03/13/25 11:42 Sucralfate 1 Gm/10 Ml Oral Liq Udc PO Not Given AC&BEDTIME KENDALL PFSH Anesthesia Medical History Degenerative joint disease of spine GERD (gastroesophageal reflux disease) Tobacco abuse Essential hypertension COPD (chronic obstructive pulmonary disease) Myocardial infarction ASHD (arteriosclerotic heart disease) Dyslipidemia Diabetes 1.5, managed as type 2 Surgical History History of hand surgery Joint replacements both hands Status post tubal ligation Status post ORIF of fracture of ankle S/P PTCA (percutaneous transluminal coronary angioplasty) Family History Father Lung cancer Mother Heart attack Sister Cancer COVID-19 Other CAD (coronary artery disease) Diabetes Social History Smoking and tobacco/nicotine status: never used tobacco/nicotine Alcohol intake: current Alcohol intake frequency: holidays/special occasions only Substance/Drug Use: never Data Anesthesia 03/13/25 05:46 03/13/25 05:46 Short CBC 03/12/25 03/13/25 Range/Units 04:23 05:46 WBC 10.01 12.11 H (3.29-11.43) 10^3/uL Hgb 8.60 L 8.70 L (11.27-16.99) g/dL Hct 27.9 L 27.6 L (36-47) % MCV 93.9 92.9 (85-98) fl Plt Count 128 L 132 L (157-399) 10^3/cmm Neut % (Auto) 64.2 61.4 % Neut # (Auto) 6.43 7.43 (1.8-7.7) 10^3/uL BMP 03/12/25 03/13/25 04:23 05:46 Sodium 138 137 Potassium 4.1 4.2 Chloride 101 101 Carbon Dioxide 22 21 L BUN 54 H 45 H Creatinine 8.5 H* 7.2 H* Glucose 137 H 144 H Calcium 8.1 L 8.2 L Liver Function 03/12/25 03/13/25 Range/Units 04:23 05:46 Total Bilirubin 0.3 0.3 (0.15-1.2) mg/dL AST 316 H 228 H (0-32) U/L ALT 191 H 152 H (0-33) U/L Alkaline Phosphatase 272 H 280 H (35-105) U/L Albumin 2.7 L 2.6 L (3.5-5.2) g/dL Microbiology 03/07/25 11:05 Blood Culture - Final Blood NO GROWTH AFTER 5 DAYS 03/07/25 11:02 Blood Culture - Final Blood NO GROWTH AFTER 5 DAYS Cardiac Studies: Echocardiogram 03/08/25 Transesophageal Echocardiogram 02/07/24
[2025-03-13] MEDS: heparin, porcine 1,000 unit/mL INJ 10 mL 10000 UNIT IRRIGATION (15:00)
[2025-03-13] MEDS: BUPivacaine 0.25% INJ 10 mL INJECTION (15:00)
[2025-03-13] MEDS: lidocaine-epi 1% 20 mL INJ INJECTION (15:00)
--- NOTE | 2025-03-13 15:18 | PM.OP ---
Operative Report Date of procedure: March 13, 2025 Pre-op diagnosis: Renal failure Post-op diagnosis: same Post-op findings: Tip of catheter at atriocaval junction confirmed with internal colonoscopy. Tunneled dialysis catheter in right chest placed via accessing the right internal jugular vein is completely functional. Procedure done: Tunneled dialysis catheter placed on right chest via right internal jugular vein Implants: 23 cm tunneled dialysis catheter Specimens removed/disposition: N/A Pathology: none sent Pathology: N/A Surgeon: Luis M Velasquez MD Nursing Surgical Services Director: N/A Anesthesia: MAC Estimated blood loss (mL): 20 Complications: N/A Findings: Tip of catheter at atriocaval junction confirmed with internal colonoscopy. Tunneled dialysis catheter in right chest placed via accessing the right internal jugular vein is completely functional. Condition: stable Disposition: floor Brief History: 69-year-old female who presented with renal failure. Discussed risk and benefits and patient agreed to proceed with tunneled dialysis catheter placement. Procedure: Patient was brought into the operating room and a timeout was carried out. Procedure was done under MAC. Patient was placed supine with the arms tucked and in Trendelenburg. Patient was prepped and draped in the usual sterile fashion. Using ultrasound guidance the right internal jugular vein was accessed. A guidewire was then placed down to the atriocaval junction using fluoroscopy. The finder needle was removed and the guidewire was secured. I then turned my attention to creating a pocket over the right chest. Local infiltration using plain lidocaine and bupivacaine at the site of the pocket and throughout the tunnel site. I confirmed adequate hemostasis at the pocket. I then proceeded to place the 23cm tunneled dialysis catheter that was already flushed with heparinized saline in the chest pocket. I tunneled the catheter from the chest to the neck at the site where I accessed the internal jugular vein. I measured the length of the catheter so it would reach the atrial caval junction. At this point, I used a series of dilators to dilate the tract into the internal jugular vein using fluoroscopy. I removed the guidewire and proceeded to thread the tunneled dialysis catheter through the introducer. In the process, I removed the sheath as a completely pushed the catheter into the internal jugular vein. I then confirmed adequate placement of the catheter by performing intraoperative interpretation of fluoroscopy. The tip of the catheter was confirmed to be placed in the atriocaval junction. There were no kinks noted throughout the trajectory of the catheter. I then proceeded to test the tunneled dialysia catheter and was satisfied with its functionality. I proceeded to flushed the catheter without any issues. I then hep-locked the port. Skin was closed using deep dermal 3-0 Vicryl, subcuticular 4-0 Monocryl, and Dermabond. The temporary dialysis catheter in the right groin was removed and pressure held for 5 minutes. Patient was then transferred to PACU without any complications.
[2025-03-13 15:19] LABS: CMV DNA By PCR Not Detected (Not Detected); CMV DNA, QN PCR Not Detected Log IU/mL (Not Detected)
--- NOTE | 2025-03-13 16:04 | ANE.PACU2 ---
Inpatient post-anesthesia follow up: Airway intact: Yes Vital signs: Temperature 98.0 F Pulse Rate 88 Respiratory Rate 15 Blood Pressure 154/99 Pulse Oximetry 97 Oxygen Delivery Me thod Room Air Oxygen Flow Rate 2 Fraction of Inspir ed Oxygen Hydration adequate: Yes Nausea and vomiting: No Pain level: controlled Mental status: Baseline
[2025-03-13 16:57] LABS: Glucose Point of Care 150 mg/dL (70-110)
[2025-03-13] MEDS: insulin lispro 100 unit/1 mL SUBCUT (18:20)
[2025-03-13 20:57] LABS: Glucose Point of Care 128 mg/dL (70-110)
[2025-03-14] VITALS (8 sets, daily range): BP systolic 126–160; BP diastolic 65–80; PULSE 76–90; RESP 17–20; TEMP 36.3–37.1; O2SAT 91–93
[2025-03-14 04:34] LABS: PROTEIN, TOTAL 5.1 g/dL (6.1-8.1)
[2025-03-14 06:24] LABS: Glucose Point of Care 182 mg/dL (70-110)
[2025-03-14] MEDS: heparin, porcine 1,000 unit/mL INJ 10 mL 1000 UNIT IV (09:15)
[2025-03-14] MEDS: clopidogrel 75 mg Tablet PO (09:43)
[2025-03-14] MEDS: insulin lispro 100 unit/1 mL SUBCUT (09:43)
[2025-03-14] MEDS: pantoprazole 40 mg SDV IVP (09:45)
--- NOTE | 2025-03-14 10:07 | PC.SOCIAL ---
IMM Updated Updated pt on IMM. No questions voiced. Provided pt a copy. Initialed, dated, & timed copy in chart.
--- NOTE | 2025-03-14 10:56 | P.PN_ITS ---
Subjective 2 Subjective: Right chest tunneled dialysis catheter functional Vitals/I&O/Wt Last Vital Signs Temp 98.4 F 03/14/25 07:40 Pulse 80 03/14/25 08:44 Resp 18 03/14/25 08:44 BP 153/69 03/14/25 07:40 Pulse Ox 92 03/14/25 08:44 O2 Del Method Room Air 03/14/25 08:44 O2 Flow Rate 2 03/11/25 07:45 03/13/25 03/14/25 03/14/25 22:59 06:59 14:59 Intake Total 290 / 290 480 / 770 120 / 120 Output Total / 150 / 152 Balance 288 / 288 330 / 618 120 / 120 Weight last 48 hrs Weight 152 lb 1.903 oz Weight 147 lb 14.883 oz Weight 148 lb 12.992 oz Physical Exam 2 Narrative: Chest: Unlabored breathing room air. No lymphadenopathy. Right chest tunneled dialysis catheter working Heart: Regular rate and rhythm. Abdomen: Soft, nontender, nondistended. No masses or lymphadenopathy. Urinary Catheter Management: Lundberg: Cath Placed During This Visit: yes Reason for Continuing Indwelling Catheter: Acute Urinary Retention or Obstruction Urinary Catheter Date of Insertion: 03/07/25 Data 03/13/25 05:46 03/13/25 05:46 A&P Assessment and plan (1) Acute renal failure: Plan 69-year-old female who presented with renal failure. Place tunneled dialysis catheter which is functional. Continue care by medicine. PDMP PDMP Reviewed: Not Reviewed Attestations 2 Medical Necessity Statement*: N/A Coding Level of Care Code 55952 Diagnoses Acute renal failure N17.9
[2025-03-14 11:19] LABS: Glucose Point of Care 138 mg/dL (70-110)
[2025-03-14] MEDS: oxyCODONE-APAP 5-325 mg Tablet 1 TAB PO (11:30)
[2025-03-14] MEDS: cefTRIAXone 1,000 mg SDV 1000 MG IVP (11:30)
--- NOTE | 2025-03-14 11:47 | P.PN_ITS ---
Subjective 2 Subjective: getting hD Medications: Reviewed: Yes Vitals/I&O/Wt Last Vital Signs Temp 97.3 F L 03/14/25 11:32 Pulse 86 03/14/25 11:32 Resp 20 H 03/14/25 11:32 BP 146/80 03/14/25 11:32 Pulse Ox 92 03/14/25 11:32 O2 Del Method Room Air 03/14/25 11:32 O2 Flow Rate 2 03/11/25 07:45 03/13/25 03/14/25 03/14/25 22:59 06:59 14:59 Intake Total 290 / 290 480 / 770 120 / 120 Output Total / 150 / 152 Balance 288 / 288 330 / 618 120 / 120 Weight last 48 hrs Weight 69 kg Weight 67.1 kg Weight 67.5 kg Physical Exam 2 Narrative: Patient is awake alert, no distress, on 2 L O2 by nasal cannula PERRLA S1-S2 regular rate and rhythm per report Lungs clear bilaterally per report Abdomen soft nontender per report No pedal edema Urinary Catheter Management: Lundberg: Cath Placed During This Visit: yes Reason for Continuing Indwelling Catheter: Acute Urinary Retention or Obstruction Urinary Catheter Date of Insertion: 03/07/25 Data 03/13/25 05:46 03/13/25 05:46 A&P Assessment and plan (1) Acute renal failure: Plan 1. Acute kidney injury superimposed on CKD stage III: Baseline creatinine in the 1.1-1.2 range, last in August 2024. Now has severe CARLOS with a creatinine of 9.7 and associated with severe metabolic acidosis. Patient oliguric . Despite bicarbonate drip and IV fluid resuscitation her metabolic acidosis has not improved and discussed with patient regarding temporary dialysis. Temporary HD catheter was placed and initiated HD. -s/p HD X 5 sessions , on Room air currently -HD today - No renal recovery ,s/p tunnelled catheter placement - Need to assess for renal recovery as out pt 2. Severe metabolic acidosis: With anion gap, likely in the setting of sepsis and CARLOS. HD as above, improved 3. Sepsis likely pyelonephritis, 4. Shock, hypotension, on pressors 5. History of coronary artery disease 6. Shock liver in the setting of sepsis, 7. Hypokalemia : Replete 8. GI bleed Patient evaluated using audiovisual cart. Time spent 40-minutes PDMP PDMP Reviewed: Not Reviewed Attestations 2 Medical Necessity Statement*: per medicine Coding Level of Care Code Acute Code for [facility] Fwd Diagnoses Acute renal failure N17.9
[2025-03-14] MEDS: heparin, porcine 1,000 unit/mL INJ 10 mL 10000 UNIT INTRACATH (13:02)
--- NOTE | 2025-03-14 13:07 | PC.NURSE ---
Pt weak, requiring walker to get to bathroom. RN discusses possible walker use at home. states that he has one at home for her to use.
--- NOTE | 2025-03-14 13:17 | P.PN_ITS ---
<Statement entered by Moose Jean-Baptiste M.D - 03/14/25 23:07> Patient was cared for in conjunction with an advanced practice practitioner. I reviewed the chart and all pertinent data including imaging, telemetry, and laboratory results. I discussed the patient in detail with the advanced practice practitioner. Please see their note for complete progress note, results and agreed upon plan of care for the patient. Subjective 2 Subjective: Patient doing well. She is getting dialysis. She is not having any chest pain or shortness of breath at this time. Vitals/I&O/Wt Last Vital Signs Temp 97.3 F L 03/14/25 11:32 Pulse 86 03/14/25 11:32 Resp 20 H 03/14/25 11:32 BP 146/80 03/14/25 11:32 Pulse Ox 92 03/14/25 11:32 O2 Del Method Room Air 03/14/25 11:32 O2 Flow Rate 2 03/11/25 07:45 03/13/25 03/14/25 03/14/25 22:59 06:59 14:59 Intake Total 290 / 290 480 / 770 120 / 120 Output Total / 150 / 152 Balance 288 / 288 330 / 618 120 / 120 Weight last 48 hrs Weight 152 lb 1.903 oz Weight 147 lb 14.883 oz Physical Exam 2 Cardio: OTHER: GENERAL: Patient is alert, awake and oriented x3. HEART: Regular S1 and S2. No murmur, rub or gallop. LUNGS: Clear to auscultate bilaterally. CENTRAL NERVOUS SYSTEM: Grossly nonfocal. EXTREMITIES: Lower extremities with out edema bilaterally. Urinary Catheter Management: Lundberg: Cath Placed During This Visit: yes Reason for Continuing Indwelling Catheter: Acute Urinary Retention or Obstruction Urinary Catheter Date of Insertion: 03/07/25 Data 03/13/25 05:46 03/13/25 05:46 A&P Assessment and plan (1) Essential hypertension: (2) Leukocytosis: Qualifiers: Leukocytosis type: leukemoid reaction Qualified Code(s): D72.823 - Leukemoid reaction (3) Elevated troponin: (4) GI bleed: Plan No cardiac symptoms Continue current management PDMP PDMP Reviewed: Not Reviewed Attestations 2 Medical Necessity Statement*: Deferred to primary. Coding Level of Care Code Acute Code for [facility] Fwd Diagnoses Essential hypertension I10 Leukemoid reaction D72.823 Leukocytosis type: leukemoid reaction Elevated troponin R79.89 GI bleed K92.2
--- NOTE | 2025-03-14 13:40 | PC.NURSE ---
Patient removed her own [place] catheter. Balloon intact and blown up with 10ml NS.
--- NOTE | 2025-03-14 14:07 | PC.NURSE ---
Notified Dm, , of patient removing own pani[place] catheter d/t agitated behaviors. Educates him on UTI s/sx to look for as well as hematuria. Also gives gait belt to take home for help with transfers. Despite in-depth discussion about patient weakness, both patient and Dm request that she be sent home without therapy services. Notified Dr. Monroy of pt removing paniagua catheter.
[2025-03-14 14:09] LABS: Anti-Nuclear Antibody Screen NEGATIVE (NEGATIVE)
[2025-03-14 14:24] LABS: Cytomegalovirus Antibody (IGG) <0.60 U/mL; Cytomegalovirus Antibody (IGM) <30.00 AU/mL
--- NOTE | 2025-03-14 14:56 | PM.DCS ---
Discharge Providers Date of Admission: 03/07/25 17:33 Date of Discharge: March 14, 2025 Attending Provider at Admission: Rosalia Howard MD Attending Provider at Discharge: Kalpana Monroy MD Primary Care Provider: Dhruv Zapata MD Diagnoses at Discharge Discharge Diagnosis (1) Essential hypertension: Status: Acute (2) Leukocytosis: Status: Acute Qualifiers: Leukocytosis type: leukemoid reaction Qualified Code(s): D72.823 - Leukemoid reaction (3) Elevated troponin: Status: Acute (4) GI bleed: Status: Acute Reason for Visit Reason for Visit: weakness, confusion, dizzy, n/v/d Hospital Course Hospital Course 69-year-old lady with a history of diabetes, hypertension, coronary artery disease last stents placed in 2018 admitted to the hospital on March 07, 2025 after presenting with generalized weakness, acute kidney failure, diagnosed to have UTI and septic shock on admission. A temporary dialysis catheter was placed on March 07, 2025 and patient initiated hemodialysis via femoral line on this day. Urine culture showed growth of Klebsiella and E. coli for which she received treatment with ceftriaxone, transitioned to Ciprofloxacin for today for 10 day course for complicated UTI. She needed pressors on admission. CT of the abdomen and pelvis was negative for any hydronephrosis. Ultrasound of the abdomen Doppler negative for any renal vein thrombosis. Noted slight peripheral nodular contour for cirrhosis. Kidney function failed to recover in spite of initiating HD. She remained oliguric. Has been transitioned to terminologist dialysis via tunneled HD catheter placed on 03/13. She received first session HD here via permacath and had no issues. Temp femoral line was removed. Outptaient dialysis set up with [facility] on Wednesday and Wednesday. Was additionally noted to have elevated LFTs upon admission, concern for potential cholecystitis initially, this was ruled out with MRCP. LFTs have improved since then. She was seen by general surgery, no surgical management indicated. She has thrombocytopenia with platelet count today at 120-130, stable during admission. Heparin was on hold due to potential concern for HIT. In reviewing past numbers patient has had platelet count as low as 126 in the past from June 2024. Less likely to be HIT. May be related to acute illness. Hemoglobin currently at 9.1, baseline appears to be between 11-13.6. Fecal occult blood testing is positive. No kimani melena or hematemesis. MADDY screen from 2023 was negative. Acute hepatitis panel is negative. May need an endoscopy as an outpatient when recovered from acute illbess given questionable cirrhosis and FOBT positive stools to evaluate for any underlying varices or gastritis. Cardiology service was consulted due to elevated troponins. Overall findings were thought to be related to type II SD and sepsis induced. Echocardiogram revealed LVEF of 60%. Grade 2 diastolic dysfunction. Overall patient is improved compared to admission and is being discharged today in a stable condition. Lisinopril is remaining on hold at the time of discharge. Amlodipine being added to her regimen for blood pressure control. Metoprolol has been continued. Gabapentin has been discontinued. If resumed, will need a much lower dose of 300 mg daily. Additionally holding Janumet for now as blood sugar is well-controlled on sliding scale insulin. Review of chart shows patient is on 50/500 twice daily, if resumed, Januvia will need to be dose adjusted down to 25 mg daily based on kidney function. Additionally holding Mounjaro for now pending follow-up with primary care physician. Rosuvastatin placed on hold additionally pending normalization of liver function. Recommend follow-up with primary care physician and nephrology as outpatient Physical Exam Narrative: General: No acute distress, AO x3 HEENT: PERRLA, pupils bilaterally equal and reactive, pallors not present Chest: Normal vesicular breath sounds, no added sounds, equal good air entry bilaterally CVS: S1-S2 regular, no murmurs, no tachycardia, no gallops, no rubs Abdomen: Soft, nontender, no organomegaly, bowel sounds present Neuro: No focal deficits, no facial deformity, AO x3, power 5/5 in all limbs Urinary Catheter Management: Lundberg: Cath Placed During This Visit: yes Reason for Continuing Indwelling Catheter: Acute Urinary Retention or Obstruction Urinary Catheter Date of Insertion: 03/07/25 Discharge Data Studies Completed and Pending Completed Studies During Hospitalization Category Date Time Status CT kidney stone [id number] Stat Cat Scan 03/07/25 13:05 Completed XR chest 1V portable [id number] Routine Exams 03/09/25 00:07 Completed XR chest 1V portable [id number] Stat Exams 03/07/25 09:39 Completed XR chest 1V portable [id number] Stat Exams 03/07/25 14:48 Completed MR MRCP [id number] Routine MRI 03/09/25 10:00 Completed CV. echo complete* [id number] Routine Ultrasound 03/08/25 08:30 Completed US ABD DOPPLER [id number] Stat Ultrasound 03/09/25 17:42 Completed US abdomen limited [id number] Stat Ultrasound 03/07/25 10:38 Completed Pending at discharge Category Date Time Status AMA [Mitochondrial AB Screen] Stat Lab 03/09/25 17:40 Received Immunofixation Serum AM LABS Lab 03/13/25 05:46 Received Serum Protien Electrophoresis [Total Protein Lab 03/13/25 05:46 Results Electrophoresis] AM LABS Sputum Culture and Gram Stain Stat Lab 03/07/25 15:30 Uncollected Radiology Impressions Abdomen Ultrasound 03/07/25 10:38 IMPRESSION: 1. Hepatomegaly with coarse hepatic echogenicity likely due to fatty infiltration or parenchymal disease. Correlation with liver function tests. 2. Sludge-filled gallbladder. Mild gallbladder wall thickening with trace edema measuring 3 mm. 3. Normal common bile duct. 4. No hydronephrosis in the RIGHT kidney. Abdomen/Pelvis CT 03/07/25 13:05 IMPRESSION: 1. Lundberg catheter. Bladder is decompressed. 2. No hydronephrosis in either kidney. 3. Trace pleural fluid in the lung bases with bibasilar atelectasis. 4. Fatty liver with hepatomegaly. 5. Small esophageal hiatal hernia. Chest X-Ray 03/09/25 00:07 IMPRESSION: Are increased linear and patchy opacities the lower raudle thoraces bilaterally and some slightly increased interstitial opacity seen in the left mid and lower hemithorax. Mild prominence of the pulmonary vasculature seen. These findings could represent combined atelectasis and pulmonary edema. Cholangiopancreatography MRI 03/09/25 10:00 IMPRESSION: 1. Normal common bile duct. No common bile duct obstruction. No intrahepatic duct dilatation. 2. Mild hepatomegaly with hepatic steatosis. Variable attenuation within the liver but no mass. 3. Small but enlarging bilateral pleural effusions. 4. Small amount of perihepatic fluid. 5. Bilateral perinephric stranding and fluid suggesting pyelonephritis. 6. Mild gallbladder wall edema may be based on hepatocellular disease and ascites. The gallbladder does not appear to be under tension. Early changes of acute cholecystitis not excluded. Abd US Ao-IVC-BPG Limited 03/09/25 17:42 IMPRESSION: As above. C-Arm Fluoroscopy 04/15/25 13:30 Impression: Insertion right dialysis catheter. Laboratory Results WBC 12.11 10^3/uL (3.29-11.43) H 03/13/25 05:46 RBC 2.97 10^6/uL (3.85-5.65) L 03/13/25 05:46 Hgb 8.70 g/dL (11.27-16.99) L 03/13/25 05:46 Hct 27.6 % (36-47) L 03/13/25 05:46 MCV 92.9 fl (85-98) 03/13/25 05:46 MCH 29.3 pg (27-33) 03/13/25 05:46 MCHC 31.5 g/dL (30-55) 03/13/25 05:46 RDW 15.0 % (12.1-15.1) 03/13/25 05:46 Plt Count 132 10^3/cmm (157-399) L 03/13/25 05:46 MPV 11.7 fL (7.4-10.4) H 03/13/25 05:46 Neut % (Auto) 61.4 % 03/13/25 05:46 Lymph % (Auto) 18.8 % 03/13/25 05:46 [place] % (Auto) 10.9 % 03/13/25 05:46 Eos % (Auto) 4.0 % 03/13/25 05:46 Baso % (Auto) 0.8 % 03/13/25 05:46 Neut # (Auto) 7.43 10^3/uL (1.8-7.7) 03/13/25 05:46 Lymph # (Auto) 2.3 10^3/uL (0.8-4.8) 03/13/25 05:46 [place] # (Auto) 1.3 10^3/uL (0.2-0.9) H 03/13/25 05:46 Eos # (Auto) 0.5 10^3/uL (0.0-0.8) 03/13/25 05:46 Baso # (Auto) 0.1 10^3/uL (0.0-0.1) 03/13/25 05:46 Nucleated RBC % (auto) 0 % 03/13/25 05:46 Nucleated RBCs # 0.0 /100WBC 03/13/25 05:46 PT 14.60 SECONDS (12.1-14.9) 03/09/25 17:40 INR 1.07 (0.8-1.2) 03/09/25 17:40 APTT 83.9 SECONDS (23.9-36.7) H 03/09/25 17:40 Specimen Type Arterial 03/07/25 16:14 Sample Site Radial, right 03/07/25 16:14 ABG pH 6.90 (7.35-7.45) L* 03/07/25 16:14 ABG pCO2 22.5 mmHg (35-45) L 03/07/25 16:14 ABG pO2 89.0 mmHg (80.0-100.0) 03/07/25 16:14 ABG PO2/FiO2 Ratio 423 03/07/25 16:14 ABG HCO3 4.4 mmol/L (22-26) L 03/07/25 16:14 ABG O2 Saturation 94.4 03/07/25 16:14 ABG Base Excess -27.4 mmol/L (-2.0-2.0) L 03/07/25 16:14 Juanjose Test Pos 03/07/25 16:14 A-a O2 Gradient 3.9 mmHg (5-10) L 03/07/25 16:14 Hematocrit 37.5 % (37-47) 03/07/25 16:14 Hgb O2 Saturation 93.2 % (95-100) L 03/07/25 16:14 Carboxyhemoglobin 0.8 %THgb (0.4-20.1) 03/07/25 16:14 Methemoglobin 0.5 % (0.4-1.5) 03/07/25 16:14 Total Hemoglobin 12.2 g/dL (12-16) 03/07/25 16:14 Sodium 127.0 mmol/L (131-143) L 03/07/25 16:14 Potassium 5.3 mmol/L (3.5-5.0) H 03/07/25 16:14 Glucose 168.0 mg/dL (70-115) H 03/07/25 16:14 Ionized Calcium 1.0 mmol/L (1.1-1.4) L 03/07/25 16:14 O2 Delivery Device Room air 03/07/25 16:14 FiO2 21.0 % 03/07/25 16:14 Bedspread Seamer ID [id number] 03/07/25 16:14 Sodium 137 mmol/L (136-145) 03/13/25 05:46 Potassium 4.2 mmol/L (3.5-5.1) 03/13/25 05:46 Chloride 101 mmol/L (98-107) 03/13/25 05:46 Carbon Dioxide 21 mmol/L (22-29) L 03/13/25 05:46 Anion Gap 19.2 (5-19) H 03/13/25 05:46 BUN 45 mg/dL (8-23) H 03/13/25 05:46 Creatinine 7.2 mg/dL (0.5-0.9) H* 03/13/25 05:46 GFR Calculation 5.6 mL/min (90-130) L 03/13/25 05:46 Glucose 144 mg/dL (65-115) H 03/13/25 05:46 POC Glucose 138 mg/dL (70-110) H 03/14/25 10:55 Estimat Average Glucose 306 03/07/25 10:12 Hemoglobin A1c 12.3 % (4.0-6.0) H 03/07/25 10:12 Calculated Osmolality 298 mOsm/kg (285-295) H 03/13/25 05:46 Lactic Acid 5.8 mmol/L (0.5-2.2) H* 03/07/25 10:13 Lactic Acid (Sepsis) 4.1 mmol/L (0.5-2.2) H* 03/07/25 13:28 Calcium 8.2 mg/dL (8.5-10.5) L 03/13/25 05:46 Phosphorus 3.1 mg/dL (2.5-4.5) 03/11/25 04:37 Magnesium 2.4 mg/dL (1.7-2.3) H 03/12/25 04:23 Total Bilirubin 0.3 mg/dL (0.15-1.2) 03/13/25 05:46 GGT 428 U/L (5-36) H 03/09/25 17:40 AST 228 U/L (0-32) H 03/13/25 05:46 ALT 152 U/L (0-33) H 03/13/25 05:46 Alkaline Phosphatase 280 U/L (35-105) H 03/13/25 05:46 Troponin T Baseline 69 ng/L (0-10) H 03/07/25 10:12 Troponin T 120 Minute 54.57 ng/L (0-10) H 03/07/25 12:17 Delta Troponin T -14.43 ABS# (0-10) L 03/07/25 12:17 Troponin T Hi Sens 6Hr 54.61 ng/L (0-10) H 03/07/25 16:07 Troponin T Hi Sens 6Hr Delta -14.39 ng/L (0-12) L 03/07/25 16:07 Total Protein 5.1 g/dL (6.1-8.1) L 03/13/25 05:46 Total Protein 5.7 g/dL (6.6-8.7) L 03/13/25 05:46 Albumin 2.6 g/dL (3.5-5.2) L 03/13/25 05:46 Globulin 3.1 g/dL (1.3-4.6) 03/13/25 05:46 Lipase 55 U/L (13-60) 03/07/25 12:17 Procalcitonin > 100.00 ng/mL (0-0.5) H 03/07/25 10:12 Urine Color Yellow (Yellow) 03/07/25 13:03 Urine Appearance Cloudy (CLEAR) A 03/07/25 13:03 Urine pH 6 (5-7) 03/07/25 13:03 Ur Specific [place] 1.010 (1.005-1.030) 03/07/25 13:03 Urine Protein 3+ (Negative) A 03/07/25 13:03 Urine Glucose (UA) Norm (Normal) 03/07/25 13:03 Urine Ketones Negative (Negative) 03/07/25 13:03 Urine Blood 3+ (Negative) A 03/07/25 13:03 Urine Nitrate Negative (Negative) 03/07/25 13:03 Urine Bilirubin Neg (Negative) 03/07/25 13:03 Urine Urobilinogen Norm mg/dL (Negative) 03/07/25 13:03 Ur Leukocyte Esterase 2+ (Negative) A 03/07/25 13:03 Urine RBC 6-10 /hpf (0-2) 03/07/25 13:03 Urine WBC >100 /hpf (0-5) H 03/07/25 13:03 Ur Squamous Epith Cells 6-10 /hpf (0-5) 03/07/25 13:03 Amorphous Sediment Not Reportable 03/07/25 13:03 Urine Bacteria 4+ /hpf (NONE) H 03/07/25 13:03 Hyaline Casts 96.30 /lpf 03/07/25 13:03 MADDY Screen Negative (NEGATIVE) 03/09/25 17:40 CMV IgG Ab <0.60 U/mL 03/09/25 17:40 CMV IgM Ab <30.00 AU/mL 03/09/25 17:40 CMV DNA Quant PCR Not detected IU/mL (Not Detected) 03/09/25 17:40 CMV Qnt PCR Interp Not detected Log IU/mL (Not Detected) 03/09/25 17:40 Hepatitis A IgM Ab Non-reactive (Nonreactive) 03/09/25 17:40 Hep Bs Antigen Non-reactive (Nonreactive) 03/09/25 17:40 Hep Bs Antibody 18.9 (11.5-1000) 03/09/25 17:40 Hep B Core Total Ab Non-reactive (Nonreactive) 03/09/25 17:40 Hepatitis C Antibody Non-reactive (Nonreactive) 03/09/25 17:40 Vitals Last Vital Signs Temp 97.3 F L 03/14/25 13:16 Pulse 86 03/14/25 13:16 Resp 18 03/14/25 13:16 BP 160/80 03/14/25 13:16 Pulse Ox 92 03/14/25 11:32 O2 Del Method Room Air 03/14/25 11:32 O2 Flow Rate 2 03/11/25 07:45 Discharge Plan Discharge Patient Disposition: Home Condition: Stable Prescriptions: New ciprofloxacin HCl [Cipro] 250 mg tablet 250 mg PO DAILY 4 Days Qty: 4 0RF amlodipine 10 mg tablet 10 mg PO DAILY 30 Days Qty: 30 0RF Continued omeprazole 40 mg capsule,delayed release(DR/EC) 40 mg PO QAM montelukast [Singulair] 10 mg tablet 10 mg PO QAM clopidogrel 75 mg tablet 75 mg PO DAILY metoprolol tartrate 25 mg tablet 25 mg PO BID Qty: 90 3RF budesonide-formoterol [Symbicort] 160-4.5 mcg/actuation HFA aerosol inhaler 1 puff INHALATION BID insulin aspart U-100 [Novolog FlexPen U-100 Insulin] 100 unit/mL (3 mL) insulin pen See Rx Instructions .ROUTE .COMPLEX PRN (Reason: Hyperglycemia) Qty: 15 0RF Rx Instructions: Inject, subcut, 3 times daily, after meals, based on sliding scale provided. Changed ropinirole 0.25 mg tablet 0.25 mg PO QPM 30 Days Qty: 0 0RF ondansetron 8 mg tablet,disintegrating 8 mg PO BID PRN (Reason: nausea) 30 Days Qty: 0 0RF Held Janumet 50-500 mg tablet 1 tab PO BID Hold Instructions: Resume on 03/21/25. rosuvastatin 40 mg tablet 40 mg PO QPM Hold Instructions: Resume on 03/21/25. hold until liver enzymes improve Mounjaro 5 mg/0.5 mL pen injector 5 mg SUBCUT Q7D Hold Instructions: Resume on 03/21/25. hold until PCP follow up Discontinued lisinopril 20 mg tablet 10 mg PO QAM Qty: 45 3RF gabapentin 800 mg tablet 800 mg PO QID Discharge Orders: Discharge Order (Routine); Ordered 03/14/25 Ordered By: Kalpana Monroy Referrals: [facility] [Outside] - 03/16/25 10:20 am (You have been setup to have Dialysis on Mondays, Wednesdays & Fridays at the [facility]. Your 1st appt is on Wednesday. Please arrive atleast 15 minutes early. ) Winter Diaz FNP [Nurse Practitioner] - 03/28/25 1:00 pm Dhruv Zapata MD [Primary Care Provider] - 03/22/25 1:00 pm Helen Guillen MD [Referring] - 7-10 days Discharge Diet: Usual diet Discharge Activity: Resume usual activity Patient Instructions: Acute Wound Care (DC), Opioid Safety, Post Anesthesia Care Discharge Attestations Time Spent in Discharge Care*: greater than 30 min Quality Metrics Clinical Quality Measures [ No reported AMI, CVA or VTE this stay] Coding Level of Care Code Acute Code for Chg Fwd Diagnoses Essential hypertension I10 Leukemoid reaction D72.823 Leukocytosis type: leukemoid reaction Elevated troponin R79.89 GI bleed K92.2
[2025-03-15 17:04] LABS: ABNORMAL PROTEIN BAND 1 0.1 g/dL (NONE DETECTED); ALBUMIN 2.4 g/dL (3.8-4.8); ALPHA 1 GLOBULIN 0.4 g/dL (0.2-0.3); BETA 1 GLOBULIN 0.4 g/dL (0.4-0.6); BETA 2 GLOBULIN 0.4 g/dL (0.2-0.5); GAMMA GLOBULIN 0.6 g/dL (0.8-1.7)
[2025-03-17 22:00] LABS: Immunofixation Serum Normal pattern.
== END 2025-03-14 16:39 | disposition home or self-care (01) | DRG 871 ==
LOC: ER 15:52 → ER IP 17:33 → ICU 17:54 → MEDSURG 03-12 13:33
PROVIDERS: Hospitalist; Internal Medicine; Student in an Organized Health Care Education/Training Program; Admitting Provider Internal Medicine; Emergency Provider Family Medicine; PCP Family Medicine; Visit Provider Student in an Organized Health Care Education/Training Program
PROC: 0JH60XZ Insertion of Tunneled Vascular Access Device into Chest Subcutaneous Tissue and Fascia, Open Approach (ICD-10-PCS; principal; 2025-03-13 14:30)
DX: A41.9 Sepsis, unspecified organism (principal); I21.A1 Myocardial infarction type 2; R65.21 Severe sepsis with septic shock; K72.00 Acute and subacute hepatic failure without coma; N17.9 Acute kidney failure, unspecified; K92.1 Melena; N10 Acute pyelonephritis; I42.9 Cardiomyopathy, unspecified; E87.20 Acidosis, unspecified; I10 Essential (primary) hypertension; E13.9 Other specified diabetes mellitus without complications; I25.10 Atherosclerotic heart disease of native coronary artery without angina pectoris; Z95.5 Presence of coronary angioplasty implant and graft; B96.1 Klebsiella pneumoniae [K. pneumoniae] as the cause of diseases classified elsewhere; Z79.02 Long term (current) use of antithrombotics/antiplatelets; Z79.4 Long term (current) use of insulin; F17.210 Nicotine dependence, cigarettes, uncomplicated; R09.02 Hypoxemia; Z79.84 Long term (current) use of oral hypoglycemic drugs; Z79.85 Long-term (current) use of injectable non-insulin antidiabetic drugs; K21.9 Gastro-esophageal reflux disease without esophagitis; J44.9 Chronic obstructive pulmonary disease, unspecified; E78.5 Hyperlipidemia, unspecified; D69.6 Thrombocytopenia, unspecified; E86.0 Dehydration
CPT/HCPCS: 36415; 36416; 36592; 36600; 51702; 71045; 74176; 74181; 76705; 77001; 80048; 80051; 80053; 81001; 82274; 82330; 82805; 82962; 82977; 83036; 83516; 83605; 83690; 83735; 84100; 84145; 84155; 84165; 84484; 85025; 85610; 85730; 86038; 86334; 86705; 86706; 86709; 86803; 87040; 87077; 87086; 87186; 87340; 87496; 90935; 92526; 92610; 93005; 93306; 94664; 96365; 96366; 96367; 96372; 96374; 96376; 99291; C1052; C1750; J0612; J0696; J0744; J1644; J1815; J2185; J2270; J2470; J2704; J3010; J3370; J3480; J3490; J7030; J7040; J7060; J7070; J7120; J9999; Q3014

== ENCOUNTER 2025-03-29 08:25 | Inpatient (IN) | payer MEDICARE, SELFPAY ==
[2025-03-29] VITALS (85 sets, daily range): BP systolic 44–114; BP diastolic 26–78; PULSE 44–102; RESP 19–25; TEMP 31.3–32.7; O2SAT 89–100; BMI 25.4
[2025-03-29] MEDS: calcium chloride 10% Syr 10 mL 2 GM IVP (08:25)
--- NOTE | 2025-03-29 08:36 | XR_ITS ---
WS: [email or web address] Portable AP semiupright chest, 03/29/2025 Clinical Data: chest pain Comparison: Portable chest, 03/09/2025 Findings: No nodules, masses or effusions are seen. The heart is normal. The pulmonary vascularity is slightly increased. No pneumonia or pneumothorax is seen. The aortic arch and descending thoracic aorta show calcification and tortuosity. There is a dialysis catheter entering the right internal jugular vein and ending in the superior vena cava. There are monitor leads on the chest wall. XR/XR chest 1V portable [id number] Impression: 1. Mild pulmonary vascular congestion. 2. Atherosclerosis.
--- NOTE | 2025-03-29 08:36 | ECG_ITS ---
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 Measurements Intervals Van Rate: 64 P: 81 SD: 162 QRS: 76 QRSD: 103 T: 63 QT: 471 QTc: 487 Interpretive Statements SINUS RHYTHM MODERATE ST DEPRESSION [0.05+ mV ST DEPRESSION] PROLONGED QT INTERVAL Compared to ECG 03/07/2025 16:42:46 ST (T wave) deviation now present Prolonged QT interval now present Sinus tachycardia no longer present T-wave abnormality no longer present Electronically Signed On 04-02-2025 09:29:23 CDT by Moose Jean-Baptiste M.D. [email or web address]
[2025-03-29 08:39] LABS: ABG PCO2 11.4 mmHg (35-45); ABG PH Result < 6.78 (7.35-7.45); Arterial Blood Gas Hematocrit 30.6 % (37-47); Base Excess ABG -31.7 mmol/L (-2.0-2.0); Blood Gas Operator Identificat AMH; Blood Gas Sample Site Brachial, right; Blood Gas Sample Type Arterial; Carboxyhemoglobin 0.6 %THgb (0.4-20.1); HCO3 ABG 1.7 mmol/L (22-26); HGB O2 Sat 93.8 % (95-100); Methemoglobin 1.6 % (0.4-1.5); Oxygen Device ROOM AIR; Oxygen Saturation ABG 95.9; PO2 FiO2 Ratio Arterial Blood 695
[2025-03-29 08:40] LABS: Ionized Calcium Level - ABG 2.3 mmol/L (1.1-1.4)
--- NOTE | 2025-03-29 08:47 | CT_ITS ---
WS: [email or web address] CT scan of the abdomen and pelvis without Oral and IV contrast. Additional two- dimensional coronal and sagittal reconstruction was performed. 03/29/2025 Clinical Data: pyelonephritis Comparison: CT abdomen pelvis, 03/07/2025 DLP: 551.[address] scans at [facility] use at least one of these dose optimization techniques: automated exposure control; mA and/or kV adjustment per patient size (includes targeted exams where dose is matched to clinical indication); or iterative reconstruction. Findings: The lower lungs show no nodules, masses or effusions. There is minimal basal atelectasis and a small hiatal hernia. The gallbladder, spleen, adrenal glands and pancreas are normal. The liver is enlarged with no cysts or masses. There is no perihepatic fluid. The kidneys show no cysts, masses, hydronephrosis or renal calculi. The abdominal aorta is normal in size with calcification in the wall. No appendicitis or diverticulitis is seen. The stomach, small bowel and colon are nonremarkable. No abscess, adenopathy, ascites or obstruction is seen The bladder is unremarkable. No inguinal hernia is seen. The bones of the lower thorax, lumbar spine, pelvis, and hips are normal. CT/CT kidney stone [id number] Impression: Negative CT scan of the abdomen and pelvis with and no acute abdominal or pelvi c disease.
[2025-03-29 08:53] LABS: Basophils # 0.3 10^3/uL (0.0-0.1); Basophils % 1.3 %; Eosinophils # 0.1 10^3/uL (0.0-0.8); Eosinophils % 0.3 %; Hematocrit 35.7 % (36-47); Lymphocytes # 5.8 10^3/uL (0.8-4.8); Lymphocytes % 29.9 %; Mean Corpuscular HGB Conc 26.1 g/dL (30-55); Mean Corpuscular Hemoglobin 28.5 pg (27-33); Mean Corpuscular Volume 109.5 fl (85-98); Mean Platelet Volume 13.6 fL (7.4-10.4); Monocytes # 0.5 10^3/uL (0.2-0.9); Monocytes % 2.4 %; Neutrophils # 12.73 10^3/uL (1.8-7.7); Neutrophils % 65.4 %; Nucleated Red Blood Cells % 0 %; Platelet Count 350 10^3/cmm (157-399); Red Blood Count 3.26 10^6/uL (3.85-5.65); White Blood Count 19.43 10^3/uL (3.29-11.43)
[2025-03-29] MEDS: norepinephrine 4 MG/250 ML BAG 30 MG IV (09:00)
--- NOTE | 2025-03-29 09:05 | W.ED.GENADLT ---
HPI - General Adult General: Chief complaint: Shortness of Breath/Dyspnea Stated complaint: SOB - hypoglycemic Time Seen by Provider: 03/29/25 08:35 History of Present Illness: 70-year-old female presents emergency room via EMS with report of hypoglycemia and poorly responsive. EMS reports that she was 54 at the scene on arrival here she was 79. She is nonresponsive she is having change control coordinator small like respirations. On initial assessment she is bradycardic with massively peaked T waves and EMS reports that she missed her dialysis yesterday. Otherwise no specific complaints that EMS had received from the family. I have seen this patient before she had a similar presentation about 4 to 6 weeks ago at which time she had an acute pyelonephritis and was septic. Family reports patient has not been feeling well for the last several days yesterday began having very watery diarrhea and overnight he came less responsive and had rapid breathing. Related Data Home Medications ?Medication ?Instructions ?Recorded ?Confirmed montelukast 10 mg tablet 10 mg PO QAM 05/07/20 03/29/25 (Singulair) omeprazole 40 mg capsule,delayed 40 mg PO QAM 05/07/20 03/29/25 release rosuvastatin 40 mg tablet 40 mg PO QPM 01/20/24 03/29/25 Held on 03/14/25. Instructions: Resume on 03/21/25. hold until liver enzymes improve clopidogrel 75 mg tablet 75 mg PO DAILY 05/10/24 03/29/25 sitagliptin phosphate 50 1 tab PO BID 08/18/24 03/29/25 mg-metformin 500 mg tablet (Janumet) Held on 03/14/25. Instructions: Resume on 03/21/25. tirzepatide 5 mg/0.5 mL 5 mg SUBCUT Q7D 03/07/25 03/29/25 subcutaneous pen injector (Kiranunmelloro) Held on 03/14/25. Instructions: Resume on 03/21/25. hold until PCP follow up gabapentin 800 mg tablet 800 mg PO QID 03/29/25 03/29/25 lisinopril 20 mg tablet 10 mg PO QAM 03/29/25 03/29/25 Previous Rx's ?Medication ?Instructions ?Recorded insulin aspart U-100 100 unit/mL See Rx Instructions .Route 02/07/24 (3 mL) subcutaneous pen (Novolog .COMPLEX PRN Hyperglycemia #15 mL FlexPen U-100 Insulin aspart) metoprolol tartrate 25 mg tablet 25 mg PO BID #90 tabs 12/04/24 amlodipine 10 mg tablet 10 mg PO DAILY 30 days #30 tabs 03/14/25 ondansetron 8 mg disintegrating 8 mg PO BID PRN nausea 30 days #0 03/14/25 tablet tabs ropinirole 0.25 mg tablet 0.25 mg PO QPM 30 days #0 tabs 03/14/25 Allergies Allergy/AdvReac Type Severity Reaction Status Date / Time oak Allergy Mild ALGY-Nasal Verified 02/26/25 15:11 Discharge Penicillins Allergy ALGY-Rash Verified 02/26/25 15:11 Review of Systems General: Reports: ROS unobtainable due to medical condition PFSH ED PFSH: Medical History Degenerative joint disease of spine GERD (gastroesophageal reflux disease) Tobacco abuse Essential hypertension COPD (chronic obstructive pulmonary disease) Myocardial infarction ASHD (arteriosclerotic heart disease) Dyslipidemia Diabetes 1.5, managed as type 2 Surgical History History of hand surgery Joint replacements both hands Status post tubal ligation Status post ORIF of fracture of ankle S/P PTCA (percutaneous transluminal coronary angioplasty) Family History Father Lung cancer Mother Heart attack Sister Cancer COVID-19 Other CAD (coronary artery disease) Diabetes Social History Smoking and tobacco/nicotine status: never used tobacco/nicotine Alcohol intake: current Alcohol intake frequency: holidays/special occasions only Substance/Drug Use: never Physical Exam HENMT: COMMON NORMALS: normocephalic and atraumatic HEAD & SCALP: normocephalic and atraumatic Resp: AUSCULTATION: crackles Cardio: COMMON NORMALS: regular rate, regular rhythm and No murmurs present (Cardio) RATE: regular rate RHYTHM: regular rhythm GI: COMMON NORMALS: Soft to palpation and No hepatosplenomegaly present AUSCULTATION: Yes normoactive bowel sounds PALPATION: Yes Soft to palpation, No Tenderness to palpation present (GI), No Guarding due to palpation present (GI) and Yes No hepatosplenomegaly present Extremity: COMMON NORMALS: normal to inspection, capillary refill normal, no clubbing, cyanosis or edema, no calf tenderness and no pedal edema Skin: COMMON NORMALS: no rashes or lesions noted GENERAL SKIN EXAM: no rashes or lesions noted Course Vital Signs: Vital signs: Vital Signs Pulse Rate 102 H 03/29/25 12:23 Respiratory Rate 25 H 03/29/25 09:37 Blood Pressure 106/78 03/29/25 10:42 Pulse Oximetry 97 03/29/25 12:23 Oxygen Delivery Me thod Room Air 03/29/25 12:23 [facility] - General Adult Medical Decision Making Patient obtunded on arrival. Initially noted bradycardia with significantly peaked T waves so given history of having missed her dialysis she was also hypotensive. EKG confirmed peaked T waves patient given calcium chloride emergently based on findings and history. Labs later came back patient has significant metabolic acidosis. Suspect this is largely driven by her missing the dialysis believe she also is septic from likely urinary tract source which was what she had in the past her chest x-ray was normal. Diarrhea likely did contribute some to it as well. Discussed with hospitalist also discussed with nephrology will admit to ICU for dialysis. Antibiotics cultures have been initiated also have initiated fluid bolus for sepsis. Patient is currently on Levophed blood pressure has improved. Troponin initially has elevation over 100 I believe this is due to the acute on chronic renal failure. CT of the abdomen negative second troponin trending down Differential Diagnosis Septic shock due to infection, diabetic ketoacidosis, acute on chronic renal failure, pneumonia, heart failure, [place] Medical Records I reviewed the patient's medical records. Lab Data I reviewed the patient's lab results. 03/29/25 08:45 03/29/25 08:45 Radiology Impressions Chest X-Ray 03/29/25 08:36 Impression: 1. Mild pulmonary vascular congestion. 2. Atherosclerosis. Abdomen/Pelvis CT 03/29/25 08:47 Impression: Negative CT scan of the abdomen and pelvis with and no acute abdominal or pelvic disease. Laboratory Results WBC 19.43 10^3/uL (3.29-11.43) H 03/29/25 08:45 RBC 3.26 10^6/uL (3.85-5.65) L 03/29/25 08:45 Hgb 9.30 g/dL (11.27-16.99) L 03/29/25 08:45 Hct 35.7 % (36-47) L 03/29/25 08:45 MCV 109.5 fl (85-98) H 03/29/25 08:45 MCH 28.5 pg (27-33) 03/29/25 08:45 MCHC 26.1 g/dL (30-55) L 03/29/25 08:45 RDW 14.0 % (12.1-15.1) 03/29/25 08:45 Plt Count 350 10^3/cmm (157-399) 03/29/25 08:45 MPV 13.6 fL (7.4-10.4) H 03/29/25 08:45 Neut % (Auto) 65.4 % 03/29/25 08:45 Lymph % (Auto) 29.9 % 03/29/25 08:45 Benzie % (Auto) 2.4 % 03/29/25 08:45 Eos % (Auto) 0.3 % 03/29/25 08:45 Baso % (Auto) 1.3 % 03/29/25 08:45 Neut # (Auto) 12.73 10^3/uL (1.8-7.7) H 03/29/25 08:45 Lymph # (Auto) 5.8 10^3/uL (0.8-4.8) H 03/29/25 08:45 Benzie # (Auto) 0.5 10^3/uL (0.2-0.9) 03/29/25 08:45 Eos # (Auto) 0.1 10^3/uL (0.0-0.8) 03/29/25 08:45 Baso # (Auto) 0.3 10^3/uL (0.0-0.1) H 03/29/25 08:45 Nucleated RBC % (auto) 0 % 03/29/25 08:45 Nucleated RBCs # 0.0 /100WBC 03/29/25 08:45 Specimen Type Arterial 03/29/25 08:28 Sample Site Brachial, right 03/29/25 08:28 ABG pH < 6.78 (7.35-7.45) L* 03/29/25 08:28 ABG pCO2 11.4 mmHg (35-45) L* 03/29/25 08:28 ABG pO2 146.0 mmHg (80.0-100.0) H 03/29/25 08:28 ABG PO2/FiO2 Ratio 695 03/29/25 08:28 ABG HCO3 1.7 mmol/L (22-26) L 03/29/25 08:28 ABG O2 Saturation 95.9 03/29/25 08:28 ABG Base Excess -31.7 mmol/L (-2.0-2.0) L 03/29/25 08:28 Juanjose Test N/a 03/29/25 08:28 A-a O2 Gradient Not Reportable 03/29/25 08:28 Hematocrit 30.6 % (37-47) L 03/29/25 08:28 Hgb O2 Saturation 93.8 % (95-100) L 03/29/25 08:28 Carboxyhemoglobin 0.6 %THgb (0.4-20.1) 03/29/25 08:28 Methemoglobin 1.6 % (0.4-1.5) H 03/29/25 08:28 Total Hemoglobin 10.0 g/dL (12-16) L 03/29/25 08:28 Sodium 140.0 mmol/L (131-143) 03/29/25 08:28 Potassium 5.0 mmol/L (3.5-5.0) 03/29/25 08:28 Glucose 80.0 mg/dL (70-115) 03/29/25 08:28 Ionized Calcium 2.3 mmol/L (1.1-1.4) H* 03/29/25 08:28 O2 Delivery Device Room air 03/29/25 08:28 FiO2 21.0 % 03/29/25 08:28 Insurance Actuary ID Amh 03/29/25 08:28 Sodium 142 mmol/L (136-145) 03/29/25 08:45 Potassium 5.5 mmol/L (3.5-5.1) H 03/29/25 08:45 Chloride 91 mmol/L (98-107) L 03/29/25 08:45 Carbon Dioxide 3 mmol/L (22-29) L* 03/29/25 08:45 Anion Gap 53.5 (5-19) H 03/29/25 08:45 BUN 41 mg/dL (8-23) H 03/29/25 08:45 Creatinine 10.6 mg/dL (0.5-0.9) H* 03/29/25 08:45 GFR Calculation 3.6 mL/min (90-130) L 03/29/25 08:45 Glucose 78 mg/dL (65-115) 03/29/25 08:45 POC Glucose 78 mg/dL (70-110) 03/29/25 09:08 Calculated Osmolality 303 mOsm/kg (285-295) H 03/29/25 08:45 Lactic Acid 28.4 mmol/L (0.5-2.2) H* 03/29/25 08:45 Calcium 18.0 mg/dL (8.5-10.5) H* 03/29/25 08:45 Phosphorus 12.5 mg/dL (2.5-4.5) H* 03/29/25 08:45 Magnesium 2.7 mg/dL (1.7-2.3) H 03/29/25 08:45 Total Bilirubin 0.3 mg/dL (0.15-1.2) 03/29/25 08:45 AST 19 U/L (0-32) 03/29/25 08:45 ALT 12 U/L (0-33) 03/29/25 08:45 Alkaline Phosphatase 140 U/L (35-105) H 03/29/25 08:45 Creatine Kinase 49 U/L (26-192) 03/29/25 08:45 Troponin T Baseline 105 ng/L (0-10) H* 03/29/25 08:45 NT-Pro-B Natriuret Pep 88459 pg/mL (0-125) H 03/29/25 08:45 Total Protein 6.8 g/dL (6.6-8.7) 03/29/25 08:45 Albumin 3.9 g/dL (3.5-5.2) 03/29/25 08:45 Globulin 2.9 g/dL (1.3-4.6) 03/29/25 08:45 Lipase 81 U/L (13-60) H 03/29/25 08:45 Urine Color Yellow (Yellow) 03/29/25 09:30 Urine Appearance Clear (CLEAR) 03/29/25 09:30 Urine pH 6.0 (5-7) 03/29/25 09:30 Ur Specific Jamison 1.010 (1.005-1.030) 03/29/25 09:30 Urine Protein 2+ (Negative) A 03/29/25 09:30 Urine Glucose (UA) Trace (Normal) H 03/29/25 09:30 Urine Ketones 1+ (Negative) H 03/29/25 09:30 Urine Blood 2+ (Negative) A 03/29/25 09:30 Urine Nitrate Negative (Negative) 03/29/25 09:30 Urine Bilirubin Negative (Negative) 03/29/25 09:30 Urine Urobilinogen 0.2 mg/dL (Negative) 03/29/25 09:30 Ur Leukocyte Esterase Negative (Negative) 03/29/25 09:30 Urine RBC 3-5 /hpf (0-2) 03/29/25 09:30 Urine WBC 6-10 /hpf (0-5) 03/29/25 09:30 Ur Squamous Epith Cells 0-5 /hpf (0-5) 03/29/25 09: Amorphous Sediment Not Reportable 03/29/25 09:30 Urine Bacteria None seen /hpf (NONE) 03/29/25 09: Hyaline Casts 3.30 /lpf 03/29/25 09:30 Ur Oval Fat Bodies 2+ /hpf 03/29/25 09:30 All radiology interpretation(s) finalized by discharge Critical Care Time Critical Care Time: Critical Care Time: Yes Total Critical Care Time: 40 Attestation: The high probability of a clinically significant, sudden or life threatening deterioration of the patient's cardiovascular respiratory renal system(s) required my full and direct attention, intervention and personal management. The critical care time is as shown. This time is in addition to time spent performing any reported procedures but includes the following: [x] Data and vital sign review and interpretation [x] Patient assessment, examination and intervention [x] Documentation [x] Medication orders and management Discharge Plan Discharge Patient Disposition: Admitted As Inpatient Admit Provider: Fito Kaiser Clinical Impression: Septic shock, Leukocytosis, Diabetes 1.5, managed as type 2, ASHD (arteriosclerotic heart disease), End-stage renal disease needing dialysis, Cystitis, Acute metabolic encephalopathy Condition: Stable Coding Level of Care Code ED Warehouse Operations Associate for Edilia Oquendo
[2025-03-29] MEDS: MEROPENEM 2,000 MG in sodium chloride 0.9% (plus) 50 ML 100 MG IV (09:06)
[2025-03-29 09:17] LABS: Slide Review Slide Review Perform
[2025-03-29 09:20] LABS: Alanine Aminotransferase 12 U/L (0-33); Albumin Level 3.9 g/dL (3.5-5.2); Alkaline Phosphatase 140 U/L (35-105); Aspartate Amino Transferase 19 U/L (0-32); Blood Urea Nitrogen 41 mg/dL (8-23); Chloride 91 mmol/L (98-107); Creatine Phosphokinase 49 U/L (26-192); Creatinine Clr Calc Pharmacy 4.1455; Globulin 2.9 g/dL (1.3-4.6); Glomerular Filtration Rate 3.6 mL/min (90-130); Glucose 78 mg/dL (65-115); Lipase 81 U/L (13-60); Magnesium 2.7 mg/dL (1.7-2.3); NT Pro B Type Natriuretic Pept 13290 pg/mL (0-125); Osmolality Calculated 303 mOsm/kg (285-295); Sodium 142 mmol/L (136-145); Total Bilirubin 0.3 mg/dL (0.15-1.2); Total Protein 6.8 g/dL (6.6-8.7)
[2025-03-29 09:23] LABS: Troponin(5th) Baseline 105 ng/L (0-10)
[2025-03-29 09:24] LABS: Anion Gap 53.5 (5-19); Carbon Dioxide 3 mmol/L (22-29); Lactic Sepsis W/Reflex 28.4 mmol/L (0.5-2.2); Potassium 5.5 mmol/L (3.5-5.1)
[2025-03-29 09:25] LABS: Phosphorus 12.5 mg/dL (2.5-4.5)
--- NOTE | 2025-03-29 09:43 | PC.NURSE ---
Dr. Verdugo notified of pt not receiving ASA, states to hold at this time.
[2025-03-29 09:51] LABS: Bilirubin Urine Negative (Negative); Blood Urine 2+ (Negative); Glucose Urine UA Trace (Normal); Ketones Urine 1+ (Negative); Leukocyte Esterase Urine Negative (Negative); Nitrate Urine Negative (Negative); Protein Urine 2+ (Negative); Urine Appearance Clear (CLEAR); Urine Color Yellow (Yellow); Urobilinogen Urine 0.2 mg/dL (Negative)
[2025-03-29] MEDS: sodium bicarbonate 8.4% syr 150 MEQ in dextrose 5% 200 ML 700 MEQ IV (09:52)
[2025-03-29 09:53] LABS: Add Urine Microscopic? YES; Bacteria Urine None Seen /hpf; Squamous Epithelial Cell Urine 0-5 /hpf (0-5)
[2025-03-29 10:09] LABS: UA Slide Review UA Slide Review Perf
[2025-03-29 10:11] LABS: Add Urine Culture? No; Oval Fat Bodies Urine 2+ /hpf
--- NOTE | 2025-03-29 10:27 | PC.NURSE ---
report called to ICU, Leonard Shipley RN, denies any further questions at end of report. pt family transported to ICU WR.
--- NOTE | 2025-03-29 10:33 | PC.PHAR ---
Pt unable to verifiy her medications. Phoned Mary Carmen and verified medications with [facility], with last fill dates and day supply.
--- NOTE | 2025-03-29 10:36 | ECG_ITS ---
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 Measurements Intervals [place] Rate: 69 P: 72 IN: 137 QRS: 71 QRSD: 103 T: 50 QT: 483 QTc: 521 Interpretive Statements SINUS RHYTHM SEPTAL MYOCARDIAL INFARCTION , OF INDETERMINATE AGE [40+ ms Q WAVE IN V1/V2] Compared to ECG 03/29/2025 08:27:16 Myocardial infarct finding now present ST (T wave) deviation no longer present Prolonged QT interval no longer present Electronically Signed On 04-02-2025 10:38:04 CDT by Moose Jean-Baptiste M.D. [email or web address]
[2025-03-29 10:39] LABS: Reflex Lactate Order REFLEX LACTIC ORDERD
[2025-03-29 10:45] LABS: Glucose Point of Care 78 mg/dL (70-110)
[2025-03-29 11:13] LABS: Troponin 5 2HR 87.17 ng/L (0-10)
[2025-03-29 11:18] LABS: Troponin 5 2HR Delta -17.83 ABS# (0-10)
[2025-03-29] MEDS: sodium bicarbonate 150 MEQ in dextrose 5% 1,000 ML IV (11:30)
[2025-03-29 12:04] LABS: Glucose Point of Care 147 mg/dL (70-110)
--- NOTE | 2025-03-29 12:51 | CTR_ITS ---
PROCEDURE INFORMATION: Exam: CTA Abdomen and Pelvis With Contrast Exam date and time: 03/29/2025 1:07 PM Age: 70 years old Clinical indication: Prior surgery; Surgery date: 6+ months; Surgery type: Dialysis cath; Assess for gi ischemia per Dr burdick PT to start dialysis after CT scan with iv contrast. PT poor historian, unable to follow breathing directions; Additional info: Assess for gi ischemia, starting crrt TECHNIQUE: Imaging protocol: Computed tomographic angiography of the abdomen and pelvis with contrast. Exam focused on the arteries. 3D rendering (Not supervised by radiologist): MIP and/or 3D reconstructed images were created by the technologist. Radiation optimization: All CT scans at this facility use at least one of these dose optimization techniques: automated exposure control; mA and/or kV adjustment per patient size (includes targeted exams where dose is matched to clinical indication); or iterative reconstruction. Contrast material: OMNI 350; Contrast volume: 100 ml; Contrast route: INTRAVENOUS (IV); COMPARISON: CT kidney stone [id number] 03/29/2025 9:52 AM RADIATION DOSE METRICS: Total DLP (mGy-cm): 402.49 Other radiation dose metrics: VASCULATURE: FINDINGS: Heart: Unremarkable. No cardiomegaly. No pericardial effusion. Aorta: No aortic aneurysm. No aortic dissection. Celiac trunk and mesenteric arteries: No occlusion or significant stenosis. Renal arteries: No occlusion or significant stenosis. Right iliac arteries: No occlusion or significant stenosis. Left iliac arteries: No occlusion or significant stenosis. Liver: No mass. Gallbladder and biliary ducts: Unremarkable. No calcified stones. No ductal dilation. Pancreas: Unremarkable. No mass. No ductal dilation. Spleen: Unremarkable. No splenomegaly. Adrenal glands: Unremarkable. No mass. Kidneys and ureters: Unremarkable. No solid mass. No hydronephrosis. Stomach and bowel: Unremarkable. No obstruction. No mucosal thickening. Appendix: No evidence of appendicitis. Intraperitoneal space: Unremarkable. No free air. No significant fluid collection. Lymph nodes: Unremarkable. No enlarged lymph nodes. Urinary bladder: Unremarkable. No mass. Reproductive: Unremarkable as visualized. Bones/joints: No acute fracture. Soft tissues: Unremarkable. CT/CT angio abdomen pelvis [id number] IMPRESSION: Unremarkable CTA of the abdomen and pelvis.
[2025-03-29 13:01] LABS: Lactic Acid level (Lactate) 31.1 mmol/L (0.5-2.2)
[2025-03-29] MEDS: PrismaSol BGK 4/2.5 - 5,000 mL Bag 5000 ML CRRT ×6 (13:05→20:03)
[2025-03-29] MEDS: iohexol 350 mg/mL 500 mL Btl (per mL) IV (13:10)
--- NOTE | 2025-03-29 13:20 | PM.HP ---
Providers/Chief Complaint Admitting Physician: Fito Kaiser Primary Care Provider: Dhruv Zapata MD Chief Complaint: SOB - hypoglycemic History of Present Illness 70 year old lady with a history of diabetes and COPD who is being hospitalized after multiple recent admissions related to urinary infection. She had been feeling unwell over the last few days, was getting sicker on Wednesday so missed hemodialysis. She did have hemodialysis on Wednesday. She has had poor appetite and oral intake since last admission although did not have any specific GI complaints. Did not have abdominal pain or diarrhea. The patient was restarted on Janumet (a combination of Januvia and metformin) around the after a brief hold, and seem to develop symptoms around the similar time. She was found confused, and unable to answer questions by EMS. In ER she was found with severe metabolic acidosis with a lactic acid level reported to be around 28. Tachypneic. Confused. With hyperkalemia, serial addition of creatinine, phosphorus, calcium. With leukocytosis of 19. She is also found to be hypothermic. An abdominal CT scan without contrast was unremarkable. Her oral intake has been poor and fluid resuscitation (including a 2-liter saline bolus and bicarbonate) has been administered. She received calcium chloride. She was started empirically on meropenem with prior urinary tract infection and pyelonephritis. Additionally, there is consideration of bowel ischemia, possible adrenal insufficiency in the context of her COPD and prior steroid exposure. Troponin with elevation up to 105 at baseline, down to 87.17 at 2 hours. NT proBNP 13,290. Review of Systems General: Reports: ROS unobtainable due to medical condition Medications/Allergies Home Medications ?Medication ?Instructions ?Recorded ?Confirmed ?Last Taken ?Type montelukast 10 mg tablet 10 mg PO QAM 05/07/20 03/29/25 07/24/24 History (Singulair) omeprazole 40 mg capsule,delayed 40 mg PO QAM 05/07/20 03/29/25 07/24/24 History release rosuvastatin 40 mg tablet 40 mg PO QPM 01/20/24 03/29/25 07/23/24 History Held on 03/14/25. Instructions: Resume on 03/21/25. hold until liver enzymes improve insulin aspart U-100 100 unit/mL See Rx Instructions .Route 02/07/24 03/29/2524 Rx (3 mL) subcutaneous pen (Novolog .COMPLEX PRN Hyperglycemia #15 mL FlexPen U-100 Insulin aspart) clopidogrel 75 mg tablet 75 mg PO DAILY 05/10/24 03/29/25 07/24/24 History sitagliptin phosphate 50 1 tab PO BID 08/18/24 03/29/25 Unknown History mg-metformin 500 mg tablet (Janumet) Held on 03/14/25. Instructions: Resume on 03/21/25. metoprolol tartrate 25 mg tablet 25 mg PO BID #90 tabs 12/04/24 03/29/25 Unknown Rx tirzepatide 5 mg/0.5 mL 5 mg SUBCUT Q7D 03/07/25 03/29/25 Unknown History subcutaneous pen injector (Kiranunmelloro) Held on 03/14/25. Instructions: Resume on 03/21/25. hold until PCP follow up amlodipine 10 mg tablet 10 mg PO DAILY 30 days #30 tabs 03/14/25 03/29/25 Unknown Rx ondansetron 8 mg disintegrating 8 mg PO BID PRN nausea 30 days #0 03/14/25 03/29/25 Unknown Rx tablet tabs ropinirole 0.25 mg tablet 0.25 mg PO QPM 30 days #0 tabs 03/14/25 03/29/25 07/23/24 Rx gabapentin 800 mg tablet 800 mg PO QID 03/29/25 03/29/25 Unknown History lisinopril 20 mg tablet 10 mg PO QAM 03/29/25 03/29/25 Unknown History Allergies Allergy/AdvReac Type Severity Reaction Status Date / Time oak Allergy Mild ALGY-Nasal Verified 02/26/25 15:11 Discharge Penicillins Allergy ALGY-Rash Verified 02/26/25 15:11 PFSH Acute PFSH: Medical History Degenerative joint disease of spine GERD (gastroesophageal reflux disease) Tobacco abuse Essential hypertension COPD (chronic obstructive pulmonary disease) Myocardial infarction ASHD (arteriosclerotic heart disease) Dyslipidemia Diabetes 1.5, managed as type 2 Surgical History History of hand surgery Joint replacements both hands Status post tubal ligation Status post ORIF of fracture of ankle S/P PTCA (percutaneous transluminal coronary angioplasty) Family History Father Lung cancer Mother Heart attack Sister Cancer COVID-19 Other CAD (coronary artery disease) Diabetes Social History Smoking and tobacco/nicotine status: never used tobacco/nicotine Alcohol intake: current Alcohol intake frequency: holidays/special occasions only Substance/Drug Use: never Vitals/I&O/Wt Last Vital Signs Pulse 102 H 03/29/25 12:23 Resp 25 H 03/29/25 09:37 BP 106/78 03/29/25 10:42 Pulse Ox 97 03/29/25 12:23 O2 Del Method Room Air 03/29/25 12:23 03/28/25 03/29/25 03/29/25 22:59 06:59 14:59 Intake Total 2252.05 / 2252.05 Balance 2252.05 / 2252.05 Weight last 48 hrs Weight 67.5 kg Weight 61.235 kg Physical Exam Narrative: at bedside. Const: ORIENTATION/CONSCIOUSNESS: Yes awake HENMT: COMMON NORMALS: oropharynx normal Neck/C-Spine: COMMON NORMALS: no JVD Resp: COMMON NORMALS: clear to auscultation bilaterally EFFORT & INSPECTION: Yes tachypneic AUSCULTATION: clear to auscultation bilaterally Cardio: COMMON NORMALS: no JVD, regular rhythm, S1 normal heart sound present, S2 normal heart sound present and No murmurs present (Cardio) RHYTHM: regular rhythm HEART SOUNDS: S1 normal heart sound present and S2 normal heart sound present GI: COMMON NORMALS: Soft to palpation and non-tender AUSCULTATION: Yes Hypoactive bowel sounds present PALPATION: Yes Soft to palpation Extremity: COMMON NORMALS: no joint enlargement and no pedal edema Neuro: COMMON NORMALS: moves all extremities Skin: COMMON NORMALS: no rashes or lesions noted GENERAL SKIN EXAM: no rashes or lesions noted Urinary Catheter Management: Lundberg: Cath Placed During This Visit: no Data 03/29/25 08:45 03/29/25 08:45 A&P Assessment and plan (1) Metabolic acidosis: Severe metabolic acidosis, with acute renal failure, with hyperkalemia, hyperphosphatemia, hypocalcemia, hypomagnesemia, lactic acid 28.4, recheck 31.1. 1+ ketones in urine, but has been hypoglycemic. Was been feeling unwell for the last several days, missed hemodialysis on Wednesday. Underlying renal failure, acidosis likely worsened by missing dialysis, but primary abnormality not entirely clear. Possibly metformin induced lactic acidosis, she had restarted the medication on the , started to feel unwell sometime after that. Would not go back to metformin. Additionally recently with admission and treatment for urinary tract infection, subsequently with poor oral intake, although did not complain of abdominal pain, diarrhea, hematochezia or melena, no other GI complaints, but would barely eat per history obtained her . C. difficile colitis possible additional consideration, for now empirically started on vancomycin and Flagyl. Initial consideration of possible septic shock secondary to complicated UTI, with recent hospitalization for pyelonephritis, although urinalysis is returning without suggestion of urinary tract infection. Kidney stone protocol CT unremarkable. Discussed consideration of possible bowel ischemia with severe lactic acidosis, also has hypoactive bowel sounds on examination. Abdomen is otherwise nontender. CT angiogram abdomen pelvis discussed and considered including risks, discussed with patient family, res habilitation assistant. CT angiogram obtained, unremarkable without sign of bowel ischemia. Initiated on CRRT, however, after 5 minutes with the circuit clotting off, had to be stopped at the same time with bradycardia, was given atropine, with improvement in heart rate, but loss of pulse, required initially very brief episode of CPR, intubated, regained pulse, subsequently additional episode of about 3 minutes, received epinephrine, push of bicarb. Intubated, started mechanical ventilation. Continued on bicarb drip. DIC profile is requested. Reviewed prior coagulation studies, noted negative factor V Leiden, protein C&S, and negative prothrombin gene mutation. Discussed with nephrology further consideration of clotting circuit in CRRT machine, and consideration given to additional measures to reduce chance of clotting. Discussed risk of bleeding with patient's family with likely platelet dysfunction with uremia, as well as possible clotting factor dysfunction with hypothermia, increased risk of bleeding. No outward bleeding at this time. Family understanding risk, agreeable to heparin drip in case recommended by nephrology. Lower possibility of septic shock, but for now continue empiric antibiotic coverage with meropenem, p.o. vancomycin via NG, as well as IV Flagyl. However, likely may be able to de-escalate, suspicion lower for acute infection. Follow-up blood cultures. Prior urine culture reviewed. Possibility of adrenal insufficiency, stress dose steroid discussed with patient and family, started with hydrocortisone every 6 hours on 100 mg. Continue bicarb drip. (2) Metabolic encephalopathy: Acute metabolic encephalopathy, awake, but not following directions, tachypnea, moaning. Additional assessment and management as above. (3) Renal failure: Acute renal failure, did not feel well earlier in the week, missed dialysis on Wednesday. Did get her dialysis on Wednesday. Presentation with severe metabolic acidosis, hyperkalemia, received calcium chloride, started on bicarb, hyperphosphatemia, hypercalcemia, hypomagnesemia. (4) Elevated troponin: Troponin with elevation to 105 at baseline, 2 hours is down to 87 and 6 hours 89. Less likely acute IA. Has not had chest pain or pressure. EKG with some moderate ST depression in 2, 3 and aVF, as well as anterolateral precordial leads. Will obtain TTE. She is otherwise warm to touch, without mottling or cyanosis, less likely cardiogenic shock. (5) Inadequate oral intake: Has had very poor oral intake since last admission. Currently bowel sounds diminished, possible ileus, although without vomiting, without signs of obstruction on CT. No additional consideration of C. difficile colitis, although without sign of colitis on CT. Collect stool in case of diarrhea. Currently NPO. Plan COPD: Not in exacerbation GERD: PPI HTN: Currently hypotensive, hold antihypertensives CAD: Resume Plavix, hold statin for now, hold metoprolol with shock HLD: Hold statin for now PDMP PDMP Reviewed: Not Reviewed Attestations Medical Necessity Statement*: Admission over 2 midnights anticipated for assessment and management of severe metabolic acidosis, with metabolic encephalopathy, renal failure, shock. Coding Level of Care Code Critical Care >/= 30 minutes Critical care time (in minutes): 65 The high probability of a clinically significant, sudden or life threatening deterioration, as referenced in this documentation, required my full and direct attention, intervention and personal management. The critical care time shown is in addition to time spent performing any reported separately billable procedures and includes the following: [x] Data and vital sign review and interpretation [x] Patient assessment, examination and intervention [x] Medication orders and management [x] Patient/Family updates as able [x] Care Coordination and Documentation. Diagnoses Metabolic acidosis E87.20 Metabolic encephalopathy G93.41 Renal failure N19 Elevated troponin R79.89 Inadequate oral intake R63.8
[2025-03-29 13:28] LABS: Hepatitis C Virus Antibody Non-Reactive (Nonreactive)
[2025-03-29 13:30] LABS: Hepatitis B Surface AB < 3.5 (11.5-1000); Hepatitis B Surface Antigen Non-Reactive (Nonreactive)
[2025-03-29] MEDS: enoxaparin 30 mg/0.3 mL Syringe SUBCUT (14:11)
[2025-03-29] MEDS: ketamine 100 mg/mL Inj 5 mL 500 MG (14:12)
[2025-03-29 14:31] LABS: Reflex FDPQ test REFLEX FDP QUEST TES
[2025-03-29] MEDS: vasopressin 40 UNIT/100 ML PREMIX 4.5 UNIT IV (14:40)
[2025-03-29] MEDS: fentaNYL 1,000 MCG/100 ML BAG 2.5 MCG IV (14:41)
[2025-03-29 14:43] LABS: Alveolar-Arterial Oxygen Gradi 13.5 mmHg (5-10); Arterial Blood Gas Hematocrit 31.6 % (37-47); Base Excess ABG -31.3 mmol/L (-2.0-2.0); Blood Gas Allen Test Pos; Blood Gas Operator Identificat CAK; Blood Gas Sample Site Radial, left; Blood Gas Sample Type Arterial; Blood Gas Tidal Volume 0.45; Carboxyhemoglobin 0.4 %THgb (0.4-20.1); HCO3 ABG 2.2 mmol/L (22-26); HGB O2 Sat 97.4 % (95-100); Ionized Calcium Level - ABG 1.3 mmol/L (1.1-1.4); Methemoglobin 1.3 % (0.4-1.5); Oxygen Device VENT; Oxygen Saturation ABG 99.1; PO2 FiO2 Ratio Arterial Blood 486; Potassium Level - ABG 4.2 mmol/L (3.5-5.0); Total Hemoglobin 10.3 g/dL (12-16)
[2025-03-29 14:44] LABS: ABG PCO2 15.3 mmHg (35-45); ABG PH Result < 6.78 (7.35-7.45)
[2025-03-29 14:52] LABS: Fibrinogen 321 mg/dL (174-498); INR 2.04 (0.8-1.2)
[2025-03-29] MEDS: heparin drip 25,000 UNIT/500 ML PREMIX 18.9 UNIT IV (14:57)
--- NOTE | 2025-03-29 14:58 | ECG_ITS ---
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 Measurements Intervals [place] Rate: 83 P: 90 MO: 159 QRS: 82 QRSD: 86 T: 46 QT: 442 QTc: 521 Interpretive Statements SINUS RHYTHM MODERATE ST DEPRESSION [0.05+ mV ST DEPRESSION] PROLONGED QT INTERVAL Compared to ECG 03/29/2025 11:25:39 ST (T wave) deviation now present Prolonged QT interval now present Myocardial infarct finding no longer present Electronically Signed On 04-02-2025 10:37:45 CDT by Moose Jean-Baptiste M.D. [email or web address]
[2025-03-29 15:00] LABS: Partial Thromboplastin Time 80.8 SECONDS (23.9-36.7)
[2025-03-29 15:02] LABS: Blood Urea Nitrogen 39 mg/dL (8-23); Calcium 9.9 mg/dL (8.5-10.5); Chloride 91 mmol/L (98-107); Creatinine Clr Calc Pharmacy 4.7931; Glucose 219 mg/dL (65-115); Magnesium 2.3 mg/dL (1.7-2.3); Potassium 4.2 mmol/L (3.5-5.1); Sodium 146 mmol/L (136-145)
[2025-03-29 15:03] LABS: Anion Gap 56.2 (5-19)
[2025-03-29] MEDS: hydrocortisone 100 mg/2 mL SDV IVP ×2 (15:03→20:47)
[2025-03-29 15:07] LABS: Carbon Dioxide 3 mmol/L (22-29); Phosphorus 11.6 mg/dL (2.5-4.5)
[2025-03-29 15:09] LABS: D Dimer >= 20.00 ug/mLFEU (0-0.59)
[2025-03-29] MEDS: norepinephrine 4 MG/250 ML BAG 75 MG IV ×4 (15:09→22:19)
--- NOTE | 2025-03-29 15:11 | USCV_ITS ---
MarloLolita Age: 70 Gender: F : 1955 Exam Date: 03/29/2025 23:51 Ordering Phys: Fito Kaiser MD Technologist: CATHERINE [place] [facility] [place]: shock, history of DM, COPD, UTI, end-stage renal failure, on dialysis. BP: 76 / 53 HR: 80 Rhythm: Sinus Technical Quality: Technically difficult MEASUREMENTS (Male / Female) Normal Values 2D ECHO LV Diastolic Diameter PLAX 3.5 cm 4.2 - 5.9 / 3.9 - 5.3 cm IVS Diastolic Thickness 1.5 cm 0.6 - 1.0 / 0.6 - 0.9 cm IVS Systolic Thickness 1.8 cm LVPW Diastolic Thickness 1.2 cm 0.6 - 1.0 / 0.6 - 0.9 cm LVPW Systolic Thickness 1.7 cm LVOT Diameter 1.7 cm LV Ejection Fraction 2D Teich 57.4 % LV Ejection Fraction MOD 4C 50.2 % LV Ejection Fraction MOD 2C 59.7 % LV Ejection Fraction 2C AL 60.3 % LA Diameter 3.0 cm Aorta at Sinotubular Diameter 2.9 cm IVC Diameter 1.2 cm M-MODE LA Ao Ratio MM 1.2 AV Cusp Separation MM 1.9 cm DOPPLER AV Peak Velocity 162.0 cm/s LVOT Peak Velocity 124.0 cm/s AV Area Cont Eq vti 1.7 cm squared AV Area Cont Eq pk 1.6 cm squared MV Peak Velocity 96.0 cm/s MV Area PHT 4.1 cm squared Mitral E to A Ratio 0.8 TR Peak Velocity 239.0 cm/s TR Peak Gradient 22.8 mmHg TV Peak E Velocity 46.0 cm/s PV Peak Velocity 140.0 cm/s FINDINGS Left Ventricle Technically limited quality echocardiogram because of poor ultrasonic windows. LV systolic function is normal with EF 55 to 60%. No regional wall motion abnormalities are seen. Grade 1 diastolic dysfunction. Right Ventricle Normal in size and function Right Atrium Normal in size Left Atrium Normal in size Mitral Valve Mild mitral annular calcification. Mild mitral regurgitation Aortic Valve Grossly normal. No significant stenosis. Tricuspid Valve Mild tricuspid regurgitation. Insufficient TR jet to evaluate RVSP. Pulmonic Valve Not well visualied Pericardium Normal Aorta Normal in size IVC Not well visualized CONCLUSIONS LV systolic function is normal with EF 55 to 60%. Grade 1 diastolic dysfunction. Mild mitral regurgitation Mild tricuspid regurgitation. Compared to prior echocardiogram from 02/2025, no significant changes are seen. Moose Jean-Baptiste MD (Electronically Signed) Final Date: 30 Mar 2025 10:05 S
--- NOTE | 2025-03-29 15:13 | PM.CONSULT ---
Providers/Reason For Consult Consulting Physician/Specialty*: kommana/Nephrology Reason for Consult*: ESRD Attending Physician: Fito Kaiser Primary Care Provider: Dhruv Zapata MD History of Present Illness History of Present Illness Lolita Sellers is a 70 year old female Patient is a 70-year-old female with past medical history dyslipidemia, diabetes, hypertension was recently admitted to the hospital due to pyelonephritis and during that time patient developed severe CARLOS with no recovery and was started on dialysis via tunneled catheter. She presents back to the emergency department today due to shortness of breath and was noted to be hypoglycemic. Further lab data is significant for leukocytosis, severe lactic acidosis with a lactic acid around 28. Patient is extremely confused unable to answer any questions. Family at bedside. Noted to have severe lactic metabolic acidosis with a bicarbonate level of 3. Patient was started on bicarbonate drip. While in the ICU patient has suffered cardiac arrest and currently patient is intubated and on 2 pressors. CRRT was started but filter has clotted immediately. Medications/Allergies Home Medications ?Medication ?Instructions ?Recorded ?Confirmed ?Last Taken ?Type montelukast 10 mg tablet 10 mg PO QAM 05/07/20 03/29/25 07/24/24 History (Singulair) omeprazole 40 mg capsule,delayed 40 mg PO QAM 05/07/20 03/29/25 07/24/24 History release rosuvastatin 40 mg tablet 40 mg PO QPM 01/20/24 03/29/25 07/23/24 History Held on 03/14/25. Instructions: Resume on 03/21/25. hold until liver enzymes improve insulin aspart U-100 100 unit/mL See Rx Instructions .Route 02/07/24 03/29/25 07/24/24 Rx (3 mL) subcutaneous pen (Novolog .COMPLEX PRN Hyperglycemia #15 mL FlexPen U-100 Insulin aspart) clopidogrel 75 mg tablet 75 mg PO DAILY 05/10/24 03/29/25 07/24/24 History sitagliptin phosphate 50 1 tab PO BID 08/18/24 03/29/25 Unknown History mg-metformin 500 mg tablet (Janumet) Held on 03/14/25. Instructions: Resume on 03/21/25. metoprolol tartrate 25 mg tablet 25 mg PO BID #90 tabs 12/04/24 03/29/25 Unknown Rx tirzepatide 5 mg/0.5 mL 5 mg SUBCUT Q7D 03/07/25 03/29/25 Unknown History subcutaneous pen injector (Alaina) Held on 03/14/25. Instructions: Resume on 03/21/25. hold until PCP follow up amlodipine 10 mg tablet 10 mg PO DAILY 30 days #30 tabs 03/14/25 03/29/25 Unknown Rx ondansetron 8 mg disintegrating 8 mg PO BID PRN nausea 30 days #0 03/14/25 03/29/25 Unknown Rx tablet tabs ropinirole 0.25 mg tablet 0.25 mg PO QPM 30 days #0 tabs 03/14/25 03/29/25 07/23/24 Rx gabapentin 800 mg tablet 800 mg PO QID 03/29/25 03/29/25 Unknown History lisinopril 20 mg tablet 10 mg PO QAM 03/29/25 03/29/25 Unknown History Allergies Allergy/AdvReac Type Severity Reaction Status Date / Time oak Allergy Mild ALGY-Nasal Verified 02/26/25 15:11 Discharge Penicillins Allergy ALGY-Rash Verified 02/26/25 15:11 Current Medications Generic Name Dose Route Start Last Admin Trade Name Freq PRN Reason Stop Dose Admin CRRT Dialysis Solution 5,000 ml 03/29/25 12:30 03/29/25 13:05 Prismasol Bgk 4/2.5 - 5,000 Ml Bag CRRT 5,000 ml CONT KENDALL Administration Protocol CRRT Dialysis Solution 5,000 ml 03/29/25 12:30 03/29/25 13:20 Prismasol Bgk 4/2.5 - 5,000 Ml Bag CRRT 5,000 ml CONT KENDALL Administration Protocol Enoxaparin Sodium 30 mg 03/29/25 13:30 03/29/25 14:11 Enoxaparin 30 Mg/0.3 Ml Syringe SUBCUT 30 mg Q24H KENDALL Administration Heparin Sodium (Porcine) 500 unit 03/29/25 12:24 03/29/25 14:52 Heparin Lock Flush 500 Unit/5 Ml Syringe IV 500 unit PRN PRN Administration At CRRT disconnect Norepinephrine Bitartrate 4 mg in 250 mls @ 0 mls/hr 03/29/25 09:00 03/29/25 14:34 Levophed IV 20 mcg/min .Q0M KENDALL 75 mls/hr Protocol Titration Per Protocol Sodium Bicarbonate 150 meq/ 1,150 mls @ 150 mls/hr 03/29/25 11:30 03/29/25 11:30 Dextrose IV 150 mls/hr .Q7H40M KENDALL Administration Vasopressin 40 unit in 100 mls @ 4.5 mls/hr 03/29/25 12:15 03/29/25 14:40 Vasostrict IV 0.03 unit/min CONT KENDALL 4.5 mls/hr 0.03 UNIT/MIN Administration Fentanyl 1,000 mcg in 100 mls @ 0 mls/hr 03/29/25 14:45 03/29/25 14:41 Sublimaze IV 25 mcg/hr .Q0M KENDALL 2.5 mls/hr Protocol Administration Per Protocol Heparin Sodium/Sodium Chloride 25,000 unit in 500 mls @ 0 mls/hr 03/29/25 14:45 03/29/25 14:57 Heparin Drip IV 14 unit/kg/hr CONT KENDALL 18.9 mls/hr Protocol Administration Per Protocol PFSH Acute PFSH: Medical History Degenerative joint disease of spine GERD (gastroesophageal reflux disease) Tobacco abuse Essential hypertension COPD (chronic obstructive pulmonary disease) Myocardial infarction ASHD (arteriosclerotic heart disease) Dyslipidemia Diabetes 1.5, managed as type 2 Surgical History History of hand surgery Joint replacements both hands Status post tubal ligation Status post ORIF of fracture of ankle S/P PTCA (percutaneous transluminal coronary angioplasty) Family History Father Lung cancer Mother Heart attack Sister Cancer COVID-19 Other CAD (coronary artery disease) Diabetes Social History Smoking and tobacco/nicotine status: never used tobacco/nicotine Alcohol intake: current Alcohol intake frequency: holidays/special occasions only Substance/Drug Use: never Vitals/I&O/Wt Last Vital Signs Pulse 102 H 03/29/25 12:23 Resp 21 H 03/29/25 14:17 BP 106/78 03/29/25 10:42 Pulse Ox 98 03/29/25 14:17 O2 Del Method Room Air 03/29/25 12:23 FiO2 60 03/29/25 14:17 03/29/25 03/29/25 03/29/25 06:59 14:59 22:59 Intake Total 2442.05 / 2442.05 Balance 2442.05 / 2442.05 Weight last 48 hrs Weight 67.5 kg Weight 61.235 kg Physical Exam Narrative: intubated , Urinary Catheter Management: Lundberg: Cath Placed During This Visit: yes Urinary Catheter Date of Insertion: 03/29/25 Urinary Catheter Time of Insertion: 09:00 Data 03/29/25 08:45 03/29/25 14:24 A&P Assessment and plan (1) End-stage renal disease needing dialysis: Plan 1. End-stage renal disease: Recently initiated on dialysis about 2 weeks ago. Patient missed 1 session of dialysis and now presents with severe metabolic acidosis and altered mental status. - Patient on 2 pressors and CRRT was started but filter clotted, will reinitiate CRRT with heparin protocol 2. Severe anion gap metabolic acidosis, suspected secondary to possible metformin induced lactic acidosis and in the setting of renal insufficiency. On bicarbonate drip and renal replacement therapy as above if patient tolerates 3. Status post cardiac arrest, currently intubated on 2 pressors 4. Question sepsis has leukocytosis, unclear source of infection, CT angiogram of the abdomen was done. No source identified. 5. Hyperkalemia, potassium 5.5, HD as above 6. Anemia, hemoglobin 9.3 monitor Patient is critically ill, discussed with the patient's family at bedside Explained poor prognosis Patient evaluated using audiovisual cart. Time spent 40-minutes PDMP PDMP Reviewed: Not Reviewed Consult Attestations Medical Necessity Statement: per medicine Coding Level of Care Code Acute Code for Chg Fwd Diagnoses End-stage renal disease needing dialysis N18.6; Z99.2
[2025-03-29] MEDS: metroNIDAZOLE IV 500 MG/100 ML PREMIX 100 MG IV ×2 (15:14→20:47)
[2025-03-29] MEDS: pantoprazole 40 mg SDV IVP (15:19)
[2025-03-29] MEDS: midazolam hcl 100 MG/100 ML BAG IV (15:21)
--- NOTE | 2025-03-29 16:04 | PM.ACPR ---
Acute Procedures Central Line Placement: Left IJ: Patient placed on monitor/pulse ox: Yes MD prep: mask, gown and gloves Central line prep: Povidone-Iodine 1% and Chlorhexidine scrub Local anesthesia used: lidocaine 1% (1cc) Ultrasound used for placement: Yes Central line lumen inserted: triple Post procedure: sutured in place, good blood return, all ports aspirated, flushed, capped and sterile dressing applied Post procedure x-ray: other (ordered) Patient tolerated procedure: well Additional comments: Consent obtained from patient's with discussion of benefits, potential risks, consideration of alternative, currently with IV access, also has a dialysis port, although running low on access with amount of medications and infusions.
--- NOTE | 2025-03-29 16:49 | XRR_ITS ---
PROCEDURE INFORMATION: Exam: XR Chest Exam date and time: 03/29/2025 4:49 PM Age: 70 years old Clinical indication: Device placement; Ett placement (vent status); Additional info: Ng tube and endotracheal tube placement. Post cpr TECHNIQUE: Imaging protocol: Radiologic exam of the chest. Views: 1 view. COMPARISON: CR XR chest 1V portable [id number] 03/29/2025 8:41 AM FINDINGS: Limitations: Right costophrenic angle excluded from view. Tubes, catheters and devices: Endotracheal tube terminates above the mahin by 3.5 cm. New left IJ central line with the tip in the superior vena cava. Esophagogastric tube is present with the tip in the stomach. Right IJ dialysis catheter unchanged. Lungs: Unremarkable. No consolidation. Pleural spaces: Unremarkable. No pleural effusion. No pneumothorax. Heart/Mediastinum: Unremarkable. No cardiomegaly. Bones/joints: Unremarkable. XR/XR chest 1V portable [id number] IMPRESSION: 1. Endotracheal tube terminates above the mahin by 3.5 cm. 2. New left IJ central line with the tip in the superior vena cava. 3. Esophagogastric tube is present with the tip in the stomach. 4. No acute cardiopulmonary process.
[2025-03-29] MEDS: EPINEPHrine 2.5 MG in sodium chloride 0.9% 250 ML 6.06 MG IV (17:38)
[2025-03-29] MEDS: sodium bicarbonate 150 MEQ in dextrose 5% 1,000 ML 200 MEQ IV ×2 (17:39→23:38)
[2025-03-29] MEDS: vancomycin 100 mg/1 mL Oral Syringe 500 MG XX ×2 (17:54→20:47)
[2025-03-29 19:09] LABS: Blood Urea Nitrogen 37 mg/dL (8-23); Calcium 8.8 mg/dL (8.5-10.5); Chloride 89 mmol/L (98-107); Creatinine Clr Calc Pharmacy 5.6807; Glomerular Filtration Rate 4.9 mL/min (90-130); Glucose 350 mg/dL (65-115); Magnesium 2.1 mg/dL (1.7-2.3); Potassium 4.4 mmol/L (3.5-5.1); Sodium 143 mmol/L (136-145)
[2025-03-29 19:20] LABS: Anion Gap 55.4 (5-19)
[2025-03-29 19:21] LABS: Carbon Dioxide 3 mmol/L (22-29)
[2025-03-29 19:22] LABS: Phosphorus 10.7 mg/dL (2.5-4.5)
--- NOTE | 2025-03-29 19:31 | PC.NURSE ---
Addendum entered by Leonard Owusu RN 03/29/25 20:12: [place] noninvasive fluid challenege performed before second attempt at dialysis. SVI change of 4.1%, not fluid responsive. Nurse alerted Dr burdick. Original Note: Late note Due to patient care/Condition. Patient arrived In ICU at approximately 1300. HR: 75, BP:86/52 while on 12mcg/min of levophed, RR: 19, SPO2: 97% on room air. Mental status is altered, will occasionally moan, stares blankly in front of her not appearing to recognize any stimulus. Patient feels cool to the touch, nurse unable to obtain oral or axillary temperature, check rectal temperature and it is 88.3. [employer] and alerted Dr burdick. Shortly after arrival in ICU, Dr Henderson rounded (nephrology). Ordered Hemodialysis. Nurse Spoke to Nati with [facility] and she will be here within the hour. Before arrival of dialysis nurse, the patient's pressor requirements increased, now on 16mcg/min of levophed and started on Vasopressin. Nurse alerted Dr henderson to change in status. Santiago changed orders to crrt due to hemodynamics. CRRT initiated at 1340. Shortly after starting dialysis, before the prsimaflex was able to calibrate initial TMP and pressure drop, it started alarming access and return pressure extemely negative/positive, the patient's heart rate became bradycardic in the 30, Hypotensive and no longer measurable by automatic cuff. Per ACLS protocol atropine (which had no effect) and code blue was called. Patient then went asystole and CPR/acls was performed by other nurses on the unit while telegraphic typewriter operator chief managed the prismaflex. While attempting to clear Primaflex alarms, nurse disconnected the Dialysis access with the intention of changing ports to return blood due to code blue. When disconnecting the Dialysis lines, large blood clots were evident in both catheters upon disconnection. Nurse disconnected dialysis set and did not attempt to return blood due to presence of blood clots. Nurse alerted Dr henderson to immeadiate clotting of dialysis lines. After speaking with Dr burdick and the family, it was decided to start the patient on heparin and incrase bicarb. Dr burdick spoke to the about increase bleeding risk due to patient's low temperature and is agreeable to proceed. Nurse viviana a PTT and then started heparin with intention to start CRRT again shortly. Nurse then assisted Dr burdick in placement of a central line. While setting up for dialysis again, the PTT resulted 80.8. THis PTT was drawn before the heparin was started and is already greater then the therapeutic range. Nurse alerted Dr henderson and Job to High PTT, recived orders to stop the heparin and to proceed with another attempt at CRRT. Nurse expressed concerns of another clotting event. CRRT started again at 1730. MInutes after starting CRRT, the patient became hypotensive with systolics in the 50's. Nurse placed patient in trendelenburg position, Started epinephrine, and reduced CRRT fluid removal to Zero. Nurse called Dr henderson to report status change and the nurse initiated change to CRRT removal rate. By the time nurse was able to call Dr henderson, the patient's blood pressure was starting to recover. Dr henderson is agreeable to changing fluid removal to net 0 at this as the patient cannot tolerate any removal, patient continues to get benefit of dialysis without fluid removal. Nurse alerted Dr burdick to status change. Dr burdick spoke to family regarding prognosis. At approximately 1910, Pressure drop increase with an increase risk of clotting prompted the discontinuation of CRRT and return of blood. Blood returned without incident. shift production supervisor nurse has assumed care at this point and has contacted Dr root with status update and potential restarting dialysis with another filter set.
--- NOTE | 2025-03-29 19:50 | PC.NURSE ---
Heparin Drip Patient's CRRT filter pressures extremely positive, warning screen active stating treatment unable to run. Blood returned to patient, new filter placed and treatment restarted. During treatment, patient fluid removal at 0 due to patient's blood pressure not allowing for fluid removal. Furthermore, patient's bicarb level 3 and phosphorous level 10.7. Dr. Salgado updated on labs, fluid removal, and filter replacement; order received to restart heparin drip at 12 ml/hr then check ptt in 6 hours.
[2025-03-29] MEDS: sodium chloride 0.9% 1,000 mL Bag CRRT (20:04)
--- NOTE | 2025-03-29 20:15 | PC.NURSE ---
Vancomycin, Blood Cultures Dr. Kaiser contacted unit; orders received for vancomycin IV, pharmacy to dose, as well as to collect blood cultures with one sample from the dialysis line and the other as a peripheral stick.
[2025-03-29 20:19] LABS: Free T4 Free Thyroxine 1.02 ng/dL (0.82-1.77); T3 Free 1.9 PG/ML (2.0-4.4); Thyroid Stimulating Hormone 1.12 uIU/mL (0.27-4.20)
--- NOTE | 2025-03-29 20:27 | P.PN_ITS ---
Subjective 2 Subjective: due to clotting the CRRT had to be stopped. She has been started on heparin drip. Is on 3 pressors and now 300cc/hr fluid but no urine and BP still low. Dm says she was making about a cup of urine daily and was getting hemodialysis. The pt had Janumet stopped but then restarted on March 22. Pt became worse with weakness and lethargy about 3 days ago. Vitals/I&O/Wt Last Vital Signs Temp 90.9 F L 03/29/25 18:05 Pulse 86 03/29/25 18:05 Resp 20 H 03/29/25 17:51 BP 76/53 03/29/25 18:05 Pulse Ox 97 03/29/25 18:05 O2 Del Method Mechanical Ventilation 03/29/25 18:05 FiO2 50 03/29/25 18:05 03/29/25 03/29/25 03/29/25 06:59 14:59 22:59 Intake Total 2442.05 / 2442.05 1368.755 / 3810.805 Balance 2442.05 / 2442.05 1368.755 / 3810.805 Weight last 48 hrs Weight 67.5 kg Weight 61.235 kg Physical Exam 2 Narrative: Gen WDWN obese WF in NAD on ventilator CV RRR Lungs Distant Abd soft decreased bowel tones Calves 1+ edema Pupils 7mm Urinary Catheter Management: Lundberg: Cath Placed During This Visit: yes Reason for Continuing Indwelling Catheter: Not indwelling catheter Urinary Catheter Date of Insertion: 03/29/25 Urinary Catheter Time of Insertion: 09:00 Data 03/29/25 08:45 03/29/25 18:31 A&P Assessment and plan (1) Metabolic acidosis: has been back on metformin which is contraindicated. Is on pressors, bicarb, fluids, CRRT. give 1000 cc Lactated ringers. continue steroid hydrocortisone. CRRT to restart tonight. Spoke with Dm and daughter Mary at bedside. (2) End-stage renal disease needing dialysis: as above PDMP PDMP Reviewed: Not Reviewed Attestations 2 Medical Necessity Statement*: critically ill and will be in hospital ICU for several days. Critical Care Time: 35 mins Coding Level of Care Code Critical Care >/= 30 minutes Diagnoses Metabolic acidosis E87.20 End-stage renal disease needing dialysis N18.6; Z99.2
[2025-03-29] MEDS: vancomycin 1,500 MG/300 ML PIGGYBACK 150 MG IV (20:48)
[2025-03-29] MEDS: ipratropium-albuterol 3 mL Neb INHALATION (20:49)
[2025-03-29] MEDS: lactated ringers 1,000 ML 500 ML IV (21:12)
[2025-03-29 21:13] LABS: Glucose Point of Care 440 mg/dL (70-110)
--- NOTE | 2025-03-29 21:15 | PC.NURSE ---
LR bolus Dr. Gaona on unit; verbal order received for 1L LR bolus at 500 ml/hr. Dr. Gaona notified of patient intake >300 ml/hr and no fluid removal; order verified to administer LR bolus. Dr. Salgado updated on patient condition and positive fluid balance; order verified to administer ordered LR bolus.
--- NOTE | 2025-03-29 21:30 | PC.NURSE ---
Insulin Patient's blood sugar 440. Dr. Gaona contacted and orders received to check blood glucose Q2H and to administer 10 units regular insulin IVP once.
[2025-03-29] MEDS: insulin regular-human 100 units/1 mL 10 UNIT IVP (21:42)
[2025-03-29 21:55] LABS: Glucose Point of Care 395 mg/dL (70-110)
[2025-03-29] MEDS: EPINEPHrine 2.5 MG in sodium chloride 0.9% 250 ML 60.6 MG IV (22:14)
[2025-03-29 23:49] LABS: Glucose Point of Care 416 mg/dL (70-110)
[2025-03-30] VITALS (108 sets, daily range): BP systolic 71–159; BP diastolic 48–109; PULSE 81–96; RESP 12–27; TEMP 32.7–33.1; O2SAT 99–100
--- NOTE | 2025-03-30 | PC.NURSE ---
Insulin Drip Patient's blood sugar still [address] Gaona notified; orders placed by physician for insulin drip.
[2025-03-30] MEDS: hydrocortisone 100 mg/2 mL SDV IVP ×4 (00:08→17:01)
[2025-03-30] MEDS: INSULIN REGULAR IN 0.9 % NACL 100 UNIT/100 ML BAG 10.5 UNIT IV (00:21)
[2025-03-30 00:30] LABS: Glucose Point of Care 409 mg/dL (70-110)
[2025-03-30 00:55] LABS: Arterial Blood Gas Hematocrit 30.1 % (37-47); Base Excess ABG -27.3 mmol/L (-2.0-2.0); Blood Gas Allen Test Pos; Blood Gas Operator Identificat SAM; Blood Gas Sample Site Radial, left; Blood Gas Sample Type Arterial; HCO3 ABG 2.3 mmol/L (22-26); Oxygen Device VENT; PO2 FiO2 Ratio Arterial Blood 490
[2025-03-30 00:57] LABS: ABG PCO2 9.8 mmHg (35-45); ABG PH Result 6.98 (7.35-7.45)
[2025-03-30] MEDS: ipratropium-albuterol 3 mL Neb INHALATION ×4 (01:07→20:12)
[2025-03-30] MEDS: sodium chloride 0.9% 1,000 mL Bag CRRT ×2 (01:09→01:57)
[2025-03-30 01:30] LABS: Albumin Level 2.8 g/dL (3.5-5.2); Blood Urea Nitrogen 29 mg/dL (8-23); Calcium 7.5 mg/dL (8.5-10.5); Chloride 89 mmol/L (98-107); Creatinine Clr Calc Pharmacy 7.9333; Glomerular Filtration Rate 7.2 mL/min (90-130); Glucose 422 mg/dL (65-115); Magnesium 1.8 mg/dL (1.7-2.3); Phosphorus 6.4 mg/dL (2.5-4.5); Potassium 4.1 mmol/L (3.5-5.1); Sodium 140 mmol/L (136-145)
[2025-03-30 01:40] LABS: Anion Gap 52.1 (5-19)
[2025-03-30 01:41] LABS: Carbon Dioxide 3 mmol/L (22-29)
[2025-03-30 01:42] LABS: Partial Thromboplastin Time > 250.0 SECONDS (23.9-36.7)
[2025-03-30] MEDS: norepinephrine 4 MG/250 ML BAG 75 MG IV ×4 (01:45→13:29)
--- NOTE | 2025-03-30 02:05 | PC.NURSE ---
Addendum entered by Aaliyah Tillman RN 03/30/25 02:08: Patient's crrt filter pressure extremely positive at 0045 with elevated TMP and Pressure Drop. Blood returned to patient, new filter initiated, and treatment continued. Dr. Gaona notified via telephone while Dr. Salgado notified via telenephrology service line. Original Note: Critical Labs Patient's ptt, bicarb, and creatinine levels resulted critical. [address] Salgado; Message left through telenephrology service line. Dr. Gaona notified of ptt level and order received to pause heparin drip for 4 hours and recheck ptt.
[2025-03-30] MEDS: PrismaSol BGK 4/2.5 - 5,000 mL Bag 5000 ML CRRT ×12 (02:12→22:21)
[2025-03-30] MEDS: FUROsemide 10 mg/mL SDV 10mL 80 MG IVP (02:17)
[2025-03-30] MEDS: vancomycin 100 mg/1 mL Oral Syringe 500 MG XX ×2 (02:18→07:35)
[2025-03-30] MEDS: EPINEPHrine 2.5 MG in sodium chloride 0.9% 250 ML 60.6 MG IV ×2 (02:26→06:45)
[2025-03-30 02:45] LABS: Glucose Point of Care 424 mg/dL (70-110)
[2025-03-30 02:45] LABS: Glucose Point of Care 423 mg/dL (70-110)
--- NOTE | 2025-03-30 02:51 | PC.NURSE ---
Vasopressin Patient's blood pressure MAP maintaining <65 while on levophed, epinephrine, and 0.04 units/min vasopressin. Dr. Gaona notified and order received to make vasopressin titratable per protocol.
[2025-03-30] MEDS: vasopressin 40 UNIT/100 ML PREMIX 9 UNIT IV (03:09)
[2025-03-30 03:32] LABS: Glucose Point of Care 365 mg/dL (70-110)
[2025-03-30 04:33] LABS: Glucose Point of Care 364 mg/dL (70-110)
[2025-03-30 04:54] LABS: Alanine Aminotransferase 88 U/L (0-33); Albumin Level 2.7 g/dL (3.5-5.2); Alkaline Phosphatase 123 U/L (35-105); Anion Gap 46.5 (5-19); Aspartate Amino Transferase 192 U/L (0-32); Blood Urea Nitrogen 25 mg/dL (8-23); Chloride 92 mmol/L (98-107); Creatinine Clr Calc Pharmacy 9.3905; Globulin 2.2 g/dL (1.3-4.6); Glomerular Filtration Rate 8.8 mL/min (90-130); Glucose 374 mg/dL (65-115); Osmolality Calculated 310 mOsm/kg (285-295); Potassium 3.5 mmol/L (3.5-5.1); Sodium 140 mmol/L (136-145); Total Bilirubin 0.8 mg/dL (0.15-1.2); Total Protein 4.9 g/dL (6.6-8.7)
[2025-03-30 05:04] LABS: Carbon Dioxide 5 mmol/L (22-29)
[2025-03-30] MEDS: INSULIN REGULAR IN 0.9 % NACL 100 UNIT/100 ML BAG 21.3 UNIT IV (05:21)
[2025-03-30] MEDS: metroNIDAZOLE IV 500 MG/100 ML PREMIX 100 MG IV (05:35)
[2025-03-30 05:36] LABS: Glucose Point of Care 380 mg/dL (70-110)
[2025-03-30] MEDS: sodium bicarbonate 150 MEQ in dextrose 5% 1,000 ML 200 MEQ IV ×2 (05:55→12:13)
[2025-03-30] MEDS: albumin 25 G/100 ML BAG 60 G IV ×3 (06:03→21:23)
[2025-03-30 06:57] LABS: Hematocrit 27.8 % (36-47); Mean Corpuscular HGB Conc 29.1 g/dL (30-55); Mean Corpuscular Volume 99.6 fl (85-98); Mean Platelet Volume 12.7 fL (7.4-10.4); Platelet Count 133 10^3/cmm (157-399); Red Blood Count 2.79 10^6/uL (3.85-5.65); Red Cell Distribution Width 14.2 % (12.1-15.1)
--- NOTE | 2025-03-30 07:03 | P.PN_ITS ---
Subjective 2 Subjective: on 3 pressors at max doses , on vent Medications: Reviewed: Yes Vitals/I&O/Wt Last Vital Signs Temp 91.4 F L 03/30/25 05:00 Pulse 86 03/30/25 05:56 Resp 22 H 03/30/25 06:15 BP 96/52 03/30/25 05:00 Pulse Ox 100 03/30/25 06:15 O2 Del Method Mechanical Ventilation 03/30/25 05:00 FiO2 50 03/30/25 06:15 03/29/25 03/30/25 03/30/25 22:59 06:59 14:59 Intake Total 2181.367 / 4623.417 5225.029 / 9848.446 Output Total 24 24 Balance 2181.367 / 4623.417 5201.029 / 9824.446 Weight last 48 hrs Weight 67.5 kg Weight 61.235 kg Physical Exam 2 Narrative: intubated , on pressors Urinary Catheter Management: Lundberg: Cath Placed During This Visit: yes Reason for Continuing Indwelling Catheter: Not indwelling catheter Urinary Catheter Date of Insertion: 03/29/25 Urinary Catheter Time of Insertion: 09:00 Data 03/30/25 05:58 03/30/25 05:58 Micro: Microbiology 03/29/25 21:52 Blood Culture - Preliminary Blood SPECIMEN COLLECTED 03/29/25 09:45 Blood Culture - Preliminary Blood SPECIMEN COLLECTED A&P Assessment and plan (1) End-stage renal disease needing dialysis: Plan 1. End-stage renal disease: Recently initiated on dialysis about 2 weeks ago. Patient missed 1 session of dialysis and now presents with severe metabolic acidosis and altered mental status. - Patient on 3 pressors and CRRT started , with heparin protocol, Filter clotted x 2 2. Severe anion gap metabolic acidosis, suspected secondary to possible metformin induced lactic acidosis and in the setting of renal insufficiency. On bicarbonate drip and renal replacement therapy as above if patient tolerates 3. Status post cardiac arrest, currently intubated on 3 pressors 4. Question sepsis has leukocytosis, unclear source of infection, CT angiogram of the abdomen was done. No source identified. 5. Hyperkalemia, potassium 5.5, HD as above 6. Anemia, hemoglobin 9.3 monitor Patient is critically ill, discussed with the patient's family at bedside in detail Explained poor prognosis family has decided no CPR , and do not escalate care Patient evaluated using audiovisual cart. Time spent 40-minutes PDMP PDMP Reviewed: Not Reviewed Attestations 2 Medical Necessity Statement*: per medicne Coding Level of Care Code Acute Code for Chg Fwd Diagnoses End-stage renal disease needing dialysis N18.6; Z99.2
[2025-03-30 07:11] LABS: Albumin Level 2.7 g/dL (3.5-5.2); Anion Gap 46.3 (5-19); Blood Urea Nitrogen 23 mg/dL (8-23); Calcium 6.9 mg/dL (8.5-10.5); Chloride 92 mmol/L (98-107); Creatinine Clr Calc Pharmacy 10.3354; Glomerular Filtration Rate 9.7 mL/min (90-130); Glucose 331 mg/dL (65-115); Magnesium 1.6 mg/dL (1.7-2.3); Phosphorus 3.4 mg/dL (2.5-4.5); Potassium 3.3 mmol/L (3.5-5.1); Sodium 140 mmol/L (136-145)
[2025-03-30 07:15] LABS: Partial Thromboplastin Time 76.7 SECONDS (23.9-36.7)
--- NOTE | 2025-03-30 07:15 | PC.NURSE ---
Physician Communication Dr. Salgado contacted unit; patient update given. Daughter at bedside, update on patient condition discussed. Daughter verbalized understanding and stated she would like patient's , Dm, to be present for cow puncher conversation. Dr. Salgado to be contacted when Dm arrives.
[2025-03-30 07:36] LABS: Slide Review Slide Review Perform; White Blood Count 36.39 10^3/uL (3.29-11.43)
[2025-03-30 07:37] LABS: Absolute Segmented Neutrophil 26.9 10/cmm (1.6-7.1); Band Neutrophils Absolute 1.5 10^3/cmm (0.0-1.2); Carbon Dioxide 5 mmol/L (22-29); Segmented Neutrophils 74 %; Total Cells Counted 100 (0-100)
[2025-03-30 07:38] LABS: Eosinophils 0 %; Lymphocytes 19 %; Lymphocytes Absolute 6.9 10^3/cmm (1.2-3.4); Monocytes Absolute 0.4 10^3/cmm (0.1-0.6)
[2025-03-30 07:39] LABS: Absolute Neutrophil 28.4 10^3/cmm (1.4-6.5); Anisocytosis Trace; Platelet Estimate Normal (Normal)
--- NOTE | 2025-03-30 07:53 | PHA.VACGOAL ---
Vancomycin Goal - Goal Vancomycin Goal:: 15-20 mg/L Vancomycin Indication:: Other - Therapy Current therapy:: Other Antibiotic (METRONIDAZOLE) Day of therpy:: Day []of [] . Actual body weight (kg): 152 lb 1.903 oz - Data Labs: WBC 36.39 10^3/uL (3.29-11.43) H* 03/30/25 05:58 RBC 2.79 10^6/uL (3.85-5.65) L 03/30/25 05:58 Hgb 8.10 g/dL (11.27-16.99) L 03/30/25 05:58 Hct 27.8 % (36-47) L 03/30/25 05:58 MCV 99.6 fl (85-98) H D 03/30/25 05:58 MCH 29.0 pg (27-33) 03/30/25 05:58 MCHC 29.1 g/dL (30-55) L D 03/30/25 05:58 RDW 14.2 % (12.1-15.1) 03/30/25 05:58 Sodium 140 mmol/L (136-145) 03/30/25 05:58 Potassium 3.3 mmol/L (3.5-5.1) L 03/30/25 05:58 Chloride 92 mmol/L (98-107) L 03/30/25 05:58 Carbon Dioxide 5 mmol/L (22-29) L* 03/30/25 05:58 Anion Gap 46.3 (5-19) H 03/30/25 05:58 BUN 23 mg/dL (8-23) 03/30/25 05:58 Creatinine 4.5 mg/dL (0.5-0.9) H 03/30/25 05:58 GFR Calculation 9.7 mL/min (90-130) L 03/30/25 05:58 Last dialysis session:: Last session (CURRENTLY ON CRRT) Treatment plan:: new consult Regimen:: INITIAL LOADING DOSE OF 1500 MG X 1 GIVEN. DUE TO PATIENT BEING ON CRRT, PLAN FOR A 10-15 MG/KG/DAY MAINTENANCE DOSE. WILL START INITIAL MAINTENANCE DOSE AT 750 MG DAILY WITH ONE DOSE SCHEDULED FOR TONIGHT. WILL GET LEVEL BEFORE DOSE 03/30 @1999. Follow up:: WILL CONTINUE TO MONITOR AND FOLLOW UP DAILY.
[2025-03-30 08:08] LABS: Glucose Point of Care 332 mg/dL (70-110)
[2025-03-30 08:08] LABS: Glucose Point of Care 319 mg/dL (70-110)
[2025-03-30] MEDS: vasopressin 40 UNIT/100 ML PREMIX 15 UNIT IV (08:11)
--- NOTE | 2025-03-30 08:49 | PC.SOCIAL ---
Addendum entered by Clemencia Lombardo RN 03/30/25 08:52: IMM was updated w/ patients daughter @ bedside. Patient is currently intubated. Original Note: IMM Update pg 2 of IMM Updated and reviewed w/ patient. Copy dated, initialed and placed in chart. Copy provided.
[2025-03-30 09:13] LABS: Glucose Point of Care 329 mg/dL (70-110)
[2025-03-30 10:24] LABS: Glucose Point of Care 268 mg/dL (70-110)
--- NOTE | 2025-03-30 10:55 | PC.NURSE ---
Dr. Salgado called gave t.o. to change dialysate rate to 1500 and post replacement to 1500 with same fluid 4K 2.5 ca
[2025-03-30 10:56] LABS: Reflex FDPQ test REFLEX FDP QUEST TES
[2025-03-30 11:10] LABS: INR 1.82 (0.8-1.2)
[2025-03-30] MEDS: EPINEPHrine 2.5 MG in sodium chloride 0.9% 250 ML 42.42 MG IV (11:10)
[2025-03-30 11:17] LABS: Fibrinogen 180 mg/dL (174-498)
[2025-03-30 11:28] LABS: D Dimer >= 20.00 ug/mLFEU (0-0.59)
[2025-03-30] MEDS: meropenem 1,000 mg SDV 1000 MG IVP ×2 (11:40→19:05)
[2025-03-30] MEDS: INSULIN REGULAR IN 0.9 % NACL 100 UNIT/100 ML BAG 24.9 UNIT IV (12:15)
[2025-03-30 12:50] LABS: Albumin Level 3.1 g/dL (3.5-5.2); Anion Gap 39.2 (5-19); Blood Urea Nitrogen 18 mg/dL (8-23); Chloride 92 mmol/L (98-107); Glomerular Filtration Rate 12.1 mL/min (90-130); Glucose 222 mg/dL (65-115); Phosphorus 1.2 mg/dL (2.5-4.5); Potassium 3.2 mmol/L (3.5-5.1); Sodium 137 mmol/L (136-145)
[2025-03-30 12:58] LABS: Magnesium 1.4 mg/dL (1.7-2.3)
[2025-03-30] MEDS: vancomycin 500 MG in sodium chloride 0.9% (100 ml) 100 ML PR ×3 (13:01→20:55)
[2025-03-30] MEDS: pantoprazole 40 mg SDV IVP (13:01)
[2025-03-30] MEDS: vancomycin 500 MG in sodium chloride 0.9% (plus) 100 ML 200 MG IV (13:02)
[2025-03-30 13:25] LABS: Carbon Dioxide 9 mmol/L (22-29)
[2025-03-30 14:07] LABS: Glucose Point of Care 190 mg/dL (70-110)
[2025-03-30 15:04] LABS: ABG PCO2 21.7 mmHg (35-45); ABG PH Result 7.46 (7.35-7.45); Alveolar-Arterial Oxygen Gradi 15.2 mmHg (5-10); Arterial Blood Gas Hematocrit 20.6 % (37-47); Base Excess ABG -7.8 mmol/L (-2.0-2.0); Blood Gas Allen Test Pos; Blood Gas Operator Identificat GD; Blood Gas Sample Site Radial, right; Blood Gas Sample Type Arterial; Carboxyhemoglobin 0.6 %THgb (0.4-20.1); HCO3 ABG 15.3 mmol/L (22-26); HGB O2 Sat 99.9 % (95-100); Ionized Calcium Level - ABG 0.9 mmol/L (1.1-1.4); Methemoglobin 0.1 % (0.4-1.5); Oxygen Device VENT; Oxygen Saturation ABG > 99.1; PO2 FiO2 Ratio Arterial Blood 408; Potassium Level - ABG 3.4 mmol/L (3.5-5.0); Total Hemoglobin 6.7 g/dL (12-16)
[2025-03-30 15:21] LABS: Glucose Point of Care 145 mg/dL (70-110)
--- NOTE | 2025-03-30 15:44 | PM.PN ---
Subjective Subjective: Hospital course, labs appreciated. Today morning patient seen on mechanical ventilator with CPAP mode on FiO2 50%. Patient on 3 pressors with Levophed of 20, epi of 10, vaso 0.1, insulin drip at 25 units/h, Versed of 4. Minimal urine output. Undergoing CRRT with mean arterial pressure currently of 72. Multiple family members at bedside. Vitals/I&O/Wt Last Vital Signs Temp 91.6 F L 03/30/25 07:00 Pulse 86 03/30/25 14:15 Resp 14 03/30/25 13:34 BP 139/68 03/30/25 14:15 Pulse Ox 100 03/30/25 14:15 O2 Del Method Mechanical Ventilation 03/30/25 13:25 FiO2 50 03/30/25 13:34 03/30/25 03/30/25 03/30/25 06:59 14:59 22:59 Intake Total 5225.029 / 9848.446 2226.845 / 2226.845 Output Total 10 Balance 5201.029 / 9824.446 2216.845 / 2216.845 Weight last 48 hrs Weight 69 kg Weight 67.5 kg Weight 61.235 kg Physical Exam Narrative: General: Critically sick appearing, intubated, sedated, currently on Byron hugger HEENT: PERRLA, pupils bilaterally equal and reactive Chest: Bilateral bronchial breath sounds all lung north with diffuse rhonchi, decreased air entry bilateral lower zone CVS: S1-S2 regular, no murmurs, no tachycardia, no gallops, no rubs Abdomen: Soft, nontender, no organomegaly, bowel sounds present Neuro: Intubated, sedated Peripheries: 2+ pitting edema bilaterally upper limbs, peripheries cold and clammy to touch Resp: COMMON NORMALS: clear to auscultation bilaterally AUSCULTATION: clear to auscultation bilaterally and crackles Cardio: COMMON NORMALS: regular rate RATE: regular rate Skin: GENERAL SKIN EXAM: mottling Urinary Catheter Management: Lundberg: Cath Placed During This Visit: yes Reason for Continuing Indwelling Catheter: Not indwelling catheter Urinary Catheter Date of Insertion: 03/29/25 Urinary Catheter Time of Insertion: 09:00 Quick SOFA Score: Respiratory Rate: 19 Blood Pressure: 139/68 [place] Coma Scale: 4 qSOFA Score: 1 If qSOFA score 2 or greater, continue: PaO2/FiO2 Ratio (mmHg): 408 Blood Pressure Mean: 91 Epinephrine Current Rate (?g/kg/min): 10 Norepinephrine Current Rate (?g/kg/min): 20 Bilirubin (mg/dl): 0.8 Platelets (x10?/ml): 133 Creatinine (mg/dl): 3.7 SOFA Score: 12 Evaluation: Current stage of sepsis: septic shock Initial hypotension: SBP < 90 mmHg and MAP < 65 mmHg Persistent hypotension: SBP < 90 mmHg and MAP < 65 mmHg Sepsis stage criteria used: [facility] Sep-1 and Sepsis-3 Crystalloid fluids: less than 30 mL/kg crystalloid fluids ordered Reasons: renal failure Blood cultures ordered: Yes Focused Exam: Vital signs: Temp Pulse Resp BP Pulse Ox O2 Del Method FiO2 03/30/25 16:06 19 H 100 03/30/25 14:15 86 139/68 100 03/30/25 14:00 87 143/61 100 03/30/25 13:45 88 146/68 100 03/30/25 13:34 14 100 50 03/30/25 13:34 85 03/30/25 13:30 84 139/63 03/30/25 13:25 87 15 100 Mechanical Ventila tion 03/30/25 13:15 84 145/60 100 03/30/25 13:00 83 135/59 100 03/30/25 12:45 83 130/57 03/30/25 12:30 86 136/61 03/30/25 12:15 85 136/66 03/30/25 12:00 87 137/73 100 03/30/25 11:45 90 147/65 100 03/30/25 11:42 13 100 50 03/30/25 11:30 85 135/62 100 03/30/25 11:15 88 140/64 100 03/30/25 11:00 87 136/58 03/30/25 10:45 85 128/57 100 03/30/25 10:30 86 130/59 100 03/30/25 10:15 86 130/57 100 03/30/25 10:00 96 126/61 100 03/30/25 09:45 88 129/60 100 03/30/25 09:36 15 100 50 03/30/25 09:30 89 130/59 100 03/30/25 09:15 87 121/58 100 03/30/25 09:00 87 126/63 100 03/30/25 08:45 88 122/61 100 03/30/25 08:30 88 125/61 100 03/30/25 08:15 87 111/65 100 03/30/25 08:00 89 127/64 100 03/30/25 08:00 88 03/30/25 07:58 17 100 50 03/30/25 07:50 89 16 100 Mechanical Ventila tion 50 03/30/25 07:45 17 119/58 100 03/30/25 07:30 86 123/55 100 03/30/25 07:15 85 116/55 100 03/30/25 07:00 91.6 F L 87 23 H 119/65 100 Mechanical Ventila tion 50 03/30/25 06:45 89 129/63 100 03/30/25 06:30 92 127/60 100 03/30/25 06:15 87 105/54 100 03/30/25 06:15 22 H 100 50 03/30/25 06:00 85 89/56 100 03/30/25 05:56 86 03/30/25 05:45 85 92/58 100 03/30/25 05:30 87 97/56 100 03/30/25 05:15 84 90/57 100 03/30/25 05:00 91.4 F L 87 23 H 96/52 100 Mechanical Ventila tion 50 03/30/25 04:45 89 99/66 100 03/30/25 04:30 91.2 F L 90 27 H 111/61 100 Mechanical Ventila tion 50 03/30/25 04:15 92 94/59 100 Respiratory exam: CTA bilaterally and crackles present Cardiovascular exam: regular rate Capillary refill: > 3 Seconds Peripheral pulse strength: 1+ Faint Peripheral pulse location: Pedal Skin exam: mottling present Date exam was performed: 03/30/25 Time exam was performed: 16:16 Sepsis Screen No Definite Risk 03/29/25, 10:21 Respiratory Rate, (12 - 18) 19 breaths/min H Today, 16:06 Blood Pressure 139/68 mmHg Today, 14:15 [place] Coma Scale Score 4 Today, 07:53 Quick SOFA Score 1 03/29/25, 10:21 SOFA Score: ABG PO2/FiO2 Ratio 408 Today, 14:45 [place] Coma Scale Score 4 Today, 07:53 Blood Pressure Mean 91 mmHg Today, 14:15 Total Bilirubin, (0.15-1.2) 0.8 mg/dL Today, 04:25 Platelet Count, (157-399) 133 10^3/cmm L Δ Today, 05:58 Creatinine, (0.5-0.9) 3.7 mg/dL H Today, 12:23 Data 03/30/25 05:58 03/30/25 12:23 Micro: Microbiology 03/29/25 21:52 Blood Culture - Preliminary Blood SPECIMEN COLLECTED 03/29/25 09:45 Blood Culture - Preliminary Blood SPECIMEN COLLECTED A&P Assessment and plan (1) Septic shock: Maintain mean blood pressure at 65 mmHg. Currently on 3 pressors. Wean epi and vaso first. Source: Unknown. Cannot rule out C. difficile. Appreciate CT abdomen pelvis with chest negative for acute abnormality. Did have extensive diarrhea prior to admission. End organ damage: Multiorgan failure Follow-up blood culture both from the L3 and from HD catheter, sputum culture. Empirically continue with IV vancomycin. Will dose vancomycin as per CRRT. Daily Vanco random levels. Broaden antibiotic coverage with IV meropenem. Stop Levaquin. Stop IV Flagyl. High concerns for possible C. difficile. Check stool for C. difficile when possible. Empirically start patient on rectal vancomycin 500 mg every 6 hours. IV albumin every 8 hourly. Septic shock complicated with multiorgan dysfunction with concerns for CARLOS on CKD, transaminitis, respiratory failure as patient is ventilator dependent, metabolic acidosis, metabolic encephalopathy as patient remains on minimal ventilator settings. (2) Respiratory failure: In setting of multiorgan failure while being in septic shock and high metabolic acidosis. Oxygen supplementation keeping saturation over 90%. ABG Q12 hourly. Change settings of ventilator as per ABGs. Currently patient is severely metabolic acidosis so we will continue on CPAP mode. Pulmicort twice daily, DuoNeb every 6 hour. (3) Multiple organ failure: Associated with septic shock. Patient has evidence of renal failure, transaminitis, respiratory failure being ventilator dependent, metabolic encephalopathy with hypothermia (4) Acute renal failure: With baseline end-stage renal disease on hemodialysis which was recently started. Complicated with electrode abnormality and metabolic acidosis. Nephrology on board. Continue with CRRT for now. Monitor electrolytes, BMP every 6 hours. Replace aggressively with target magnesium of around 2, phosphorus of around 2, potassium of around 4. (5) Metabolic acidosis: Continue monitoring BG every 12 hours. (6) Shock liver: On recent admission there was a concern for cholecystitis which was ruled out by an MRCP. Monitor transaminitis regularly. Check DIC panel. Recently concern for HIT. Patient does have chronic thrombocytopenia. Patient did receive heparin overnight. For now we will hold off on heparin subcu other than the heparin which patient is receiving with CRRT. Repeat HIT panel. (7) DM2 (diabetes mellitus, type 2): With concerns for hyperglycemia as patient is on multiple fluids which are mixed with D5. Continue with insulin drip for now. Target blood sugar around 200. Does have uncontrolled type 2 diabetes mellitus as an outpatient. A1c recently of 12.3. (8) Electrolyte abnormality: To be replaced aggressively while patient is on CRRT. Check electrolytes, magnesium, phosphorus every 6 hour. Maintain magnesium around 2, phosphorus around 2, potassium around 4. (9) S/P PTCA (percutaneous transluminal coronary angioplasty): History of PCI in the past. Denies any active recent chest pain as a family member. Repeat echocardiogram shows an EF of 55 to 60% with grade 1 diastolic dysfunction, mild MR mild TR. Will restart home dose of Plavix once patient starts having bowel functions again. Currently high concerns for ileus. (10) Essential hypertension: Currently in septic shock. Hold off on antihypertensive. (11) Hyperglycemia: (12) Ventilator dependent: (13) End-stage renal disease needing dialysis: Plan Severely guarded prognosis. Anesthesia: Continue with Versed. Fentanyl 25 if patient starts waking up. Glycemic control: Uncontrolled type 2 diabetes mellitus. Currently on insulin drip Nutrition: NPO. High concerns for ileus. CODE STATUS: Discussed in detail with patient and multiple family members at bedside. Limited resuscitation with mechanical ventilation. They do not want any kind of chest compressions. If patient does not improve or has higher pressor requirement they will consider comfort care. PUD prophylaxis: Protonix DVT prophylaxis: Heparin 5000 every 12 hourly for DVT prophylaxis Discharge planning: Depending on clinical picture going forward Continue with care at ICU. Hide detailed goals of care discussions with multiple family members at bedside. We discussed unfortunately patient is extremely sick with severe guarded prognosis given multiorgan failure, septic shock requiring 3 pressors, severe metabolic acidosis requiring CRRT with setting of baseline insulin disease on hemodialysis, uncontrolled type 2 diabetes mellitus on insulin drip. Family understands that patient has grave prognosis for now. They would like to continue with current treatment. If patient has worsening or higher requirement pressors stable consider comfort care. CODE STATUS switched to limited resuscitation as above. This documentation was created by [employer] pss delivery professional software. Every effort was made to ensure accuracy of pss delivery professional. Any obvious errors or omissions should be clarified with the author of the document. PDMP PDMP Reviewed: Not Reviewed Attestations Medical Necessity Statement*: Requires further hospitalization for management of septic shock, multiorgan failure, type 2 diabetes mellitus severe hyperglycemia on insulin drip, end-stage renal disease on CRRT given respiratory failure, metabolic acidosis Critical Care Time: The high probability of a clinically significant, sudden or life threatening deterioration of the patient's [pulm, cardiac, renal, neurological, goals of care] system(s) required my full and direct attention, intervention and personal management. The critical care time is as shown. This time is in addition to time spent performing any reported procedures but includes the following: [x] Data and vital sign review and interpretation [x] Patient assessment, examination and intervention [x] Documentation [x] Medication orders and management Critical Care Time (min): 95 Coding Level of Care Code Critical Care >/= 30 minutes Critical care time (in minutes): 95 The high probability of a clinically significant, sudden or life threatening deterioration, as referenced in this documentation, required my full and direct attention, intervention and personal management. The critical care time shown is in addition to time spent performing any reported separately billable procedures and includes the following: [x] Data and vital sign review and interpretation [x] Patient assessment, examination and intervention [x] Medication orders and management [x] Patient/Family updates as able [x] Care Coordination and Documentation. Other Coding Information This patient has a high probability of clinically significant, sudden or life threatening deterioration of the patient's (neurological/pulmonary/cardiac/renal/ID/endocrine) systems required my full, direct attention, the highest level of physician preparedness for urgent intervention and personal management. I managed/supervised life or organ supporting interventions that required frequent physician assessment. I devoted my full attention in the ICU to the direct care of this patient for the period of time indicated above. Time I spent with family or surrogate(s) is included only if the patient was incapable of providing necessary information or participating in decision making. This time includes the following services provided: Telemetry review Mechanical Ventilation Hemodynamic interpretation, assessment and management Review and interpretation of CXR Review and interpretation of lab values Review and interpretation of microbiologic data and culture results Review of medications and administration Review and interpretation of Nutrition requirements and management Discussion of management with other consultants and services Clinical update to family members Diagnoses Septic shock A41.9; R65.21 Respiratory failure J96.90 Multiple organ failure Acute renal failure N17.9 Metabolic acidosis E87.20 Shock liver K72.00 DM2 (diabetes mellitus, type 2) E11.9 Electrolyte abnormality E87.8 S/P PTCA (percutaneous transluminal coronary angioplasty) Z98.61 Essential hypertension I10 Hyperglycemia R73.9 Ventilator dependent Z99.11 End-stage renal disease needing dialysis N18.6; Z99.2
[2025-03-30] MEDS: potassium phosphate (mEq K) 40 MEQ in sodium chloride 0.9% (100 ml) 100 ML 27.25 MEQ IV (16:09)
[2025-03-30] MEDS: magnesium sulfate premix 1 GM/100 ML PIGGYBACK IV (16:09)
[2025-03-30] MEDS: norepinephrine 4 MG/250 ML BAG 52.5 MG IV (16:24)
[2025-03-30] MEDS: sodium chloride 0.9% 1,000 ML 75 ML IV (16:27)
[2025-03-30 16:50] LABS: Glucose Point of Care 113 mg/dL (70-110)
[2025-03-30] MEDS: heparin 5,000 unit/mL INJ 1 mL 5000 UNIT SUBCUT (17:01)
--- NOTE | 2025-03-30 17:28 | PC.NURSE ---
Shift summary: tolorated crrt well, changed set x1, able to decrease pressors per mar, orders from dr. montenegro per mar for electrolyte replacement and iv fluid change, plan per nephrology continue crrt through out the night
[2025-03-30] MEDS: midazolam hcl 100 MG/100 ML BAG IV (17:32)
--- NOTE | 2025-03-30 17:36 | PC.NURSE ---
pitting edema to both hands, able to get 2 rings off and given to husbands, unable to get other rings off fingers
[2025-03-30] MEDS: INSULIN REGULAR IN 0.9 % NACL 100 UNIT/100 ML BAG 7.41 UNIT IV (17:52)
[2025-03-30 18:02] LABS: ABG PCO2 34.7 mmHg (35-45); Alveolar-Arterial Oxygen Gradi 11.7 mmHg (5-10); Arterial Blood Gas Hematocrit 22.1 % (37-47); Base Excess ABG -2.9 mmol/L (-2.0-2.0); Blood Gas Allen Test Pos; Blood Gas Operator Identificat GD; Blood Gas Sample Site Radial, right; Blood Gas Sample Type Arterial; Carboxyhemoglobin 0.9 %THgb (0.4-20.1); HCO3 ABG 21.5 mmol/L (22-26); HGB O2 Sat 95.3 % (95-100); Methemoglobin 1.7 % (0.4-1.5); Oxygen Device VENT; Oxygen Saturation ABG 97.9; PO2 ABG 78.6 mmHg (80.0-100.0); PO2 FiO2 Ratio Arterial Blood 262; Total Hemoglobin 7.2 g/dL (12-16)
[2025-03-30 18:16] LABS: Glucose Point of Care 54 mg/dL (70-110)
[2025-03-30] MEDS: dextrose 10% 125 ML 750 ML IV ×2 (18:17→19:26)
[2025-03-30 18:33] LABS: Basophils % 0.1 %; Eosinophils % 0.1 %; Lymphocytes # 2.1 10^3/uL (0.8-4.8); Lymphocytes % 13.9 %; Mean Corpuscular HGB Conc 31.6 g/dL (30-55); Mean Corpuscular Hemoglobin 28.8 pg (27-33); Mean Corpuscular Volume 91.3 fl (85-98); Mean Platelet Volume 12.7 fL (7.4-10.4); Monocytes # 1.1 10^3/uL (0.2-0.9); Monocytes % 7.6 %; Neutrophils # 11.47 10^3/uL (1.8-7.7); Neutrophils % 77.2 %; Nucleated Red Blood Cells % 0 %; Platelet Count 56 10^3/cmm (157-399); Red Blood Count 2.29 10^6/uL (3.85-5.65); Red Cell Distribution Width 14.4 % (12.1-15.1); White Blood Count 14.87 10^3/uL (3.29-11.43)
[2025-03-30 18:38] LABS: Glucose Point of Care 94 mg/dL (70-110)
[2025-03-30 18:48] LABS: Albumin Level 3.7 g/dL (3.5-5.2); Anion Gap 24.7 (5-19); Blood Urea Nitrogen 12 mg/dL (8-23); Calcium 7.2 mg/dL (8.5-10.5); Carbon Dioxide 19 mmol/L (22-29); Chloride 97 mmol/L (98-107); Creatinine Clr Calc Pharmacy 22.1472; Glomerular Filtration Rate 23.3 mL/min (90-130); Glucose 59 mg/dL (65-115); Phosphorus 1.4 mg/dL (2.5-4.5); Potassium 3.7 mmol/L (3.5-5.1); Sodium 137 mmol/L (136-145)
[2025-03-30 18:49] LABS: Magnesium 1.8 mg/dL (1.7-2.3)
[2025-03-30 19:28] LABS: Hematocrit 20.9 % (36-47)
--- NOTE | 2025-03-30 19:41 | PC.NURSE ---
Addendum entered by Aaliyah Tillman RN 03/30/25 22:12: Insulin drip to remain stopped. Original Note: Glucose/HCT Dr. Gaona notified of patient's low blood sugar requiring second D10 bolus as well as critical hct level. Orders received to change maintenance fluid to D5NS at 100 ml/hr and redraw cbc.
[2025-03-30 19:44] LABS: Glucose Point of Care 60 mg/dL (70-110)
[2025-03-30] MEDS: dextrose 5%-sod chloride 0.9% 1,000 ML 100 ML IV (20:07)
[2025-03-30 20:11] LABS: Basophils % 0.2 %; Lymphocytes # 1.9 10^3/uL (0.8-4.8); Lymphocytes % 14.9 %; Mean Corpuscular HGB Conc 31.8 g/dL (30-55); Mean Corpuscular Hemoglobin 28.8 pg (27-33); Mean Corpuscular Volume 90.4 fl (85-98); Mean Platelet Volume 12.4 fL (7.4-10.4); Monocytes # 0.9 10^3/uL (0.2-0.9); Monocytes % 7.4 %; Neutrophils # 9.63 10^3/uL (1.8-7.7); Neutrophils % 76.6 %; Nucleated Red Blood Cells % 0 %; Platelet Count 54 10^3/cmm (157-399); Red Blood Count 2.19 10^6/uL (3.85-5.65); Red Cell Distribution Width 14.2 % (12.1-15.1); White Blood Count 12.56 10^3/uL (3.29-11.43)
[2025-03-30] MEDS: budesonide 0.5 mg/2 mL Neb INHALATION (20:12)
[2025-03-30 20:34] LABS: Hematocrit 19.8 % (36-47); Slide Review Slide Review Perform
[2025-03-30 20:39] LABS: Glucose Point of Care 104 mg/dL (70-110)
[2025-03-30 20:39] LABS: Glucose Point of Care 103 mg/dL (70-110)
--- NOTE | 2025-03-30 21:00 | PC.NURSE ---
Addendum entered by Aaliyah Tillman RN 03/30/25 22:50: Subq Heparin discussed; order received to administer as ordered. Original Note: Blood Dr. Gaona notified of patient's critical hgb and hct levels; orders received to transfuse 2 units PRBCs and to change protonix dose to Q12H.
[2025-03-30 22:11] LABS: Glucose Point of Care 122 mg/dL (70-110)
--- NOTE | 2025-03-30 22:50 | PC.NURSE ---
Physician Communication Dr. Andrews contacted unit for patient update; hgb, hct, blood sugar, ventilator settings, pressor requirements, and dialysis information relayed. Orders received to administer 1 mg glucagon now, decrease D5NS to 50 ml/hr if blood sugar stable following glucagon, discontinue subq heparin, obtain a cbc after first unit of prbcs transfused, and hold second unit if hgb >7.
[2025-03-30] MEDS: glucagon 1 mg/mL KIT 1 mL IM (23:03)
[2025-03-30 23:17] LABS: Glucose Point of Care 173 mg/dL (70-110)
[2025-03-31] VITALS (115 sets, daily range): BP systolic 88–162; BP diastolic 42–98; PULSE 66–109; RESP 8–22; TEMP 32.5–37.4; O2SAT 90–100
[2025-03-31 00:11] LABS: Glucose Point of Care 203 mg/dL (70-110)
--- NOTE | 2025-03-31 00:43 | PC.NURSE ---
Warmed Fluids Dr. Gaona notified of patient's continuing low temperature despite use of jesus hugger on high. Order received to warm IV fluids or blood. Blood bank contacted about warming blood with no affirmative response. Pharmacy contacted regarding warming D5NS; pharmacist stated that warming D5NS would not harm the fluid and to ask dry house attendant regarding policy. 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 Dr. Gaona updated and order verified to warm D5NS using Newnan device.
[2025-03-31] MEDS: pantoprazole 40 mg SDV IVP ×2 (01:13→13:11)
[2025-03-31] MEDS: hydrocortisone 100 mg/2 mL SDV IVP ×4 (01:13→17:10)
[2025-03-31 01:26] LABS: Glucose Point of Care 237 mg/dL (70-110)
[2025-03-31] MEDS: PrismaSol BGK 4/2.5 - 5,000 mL Bag 5000 ML CRRT ×12 (01:57→18:05)
[2025-03-31 02:07] LABS: Vancomycin Trough 7.1 ug/mL (10-15)
[2025-03-31 02:08] LABS: Albumin Level 3.5 g/dL (3.5-5.2); Anion Gap 17.3 (5-19); Blood Urea Nitrogen 9 mg/dL (8-23); Carbon Dioxide 23 mmol/L (22-29); Chloride 99 mmol/L (98-107); Creatinine Clr Calc Pharmacy 42.2811; Glomerular Filtration Rate 49.1 mL/min (90-130); Glucose 210 mg/dL (65-115); Phosphorus 1.8 mg/dL (2.5-4.5); Potassium 4.3 mmol/L (3.5-5.1); Sodium 135 mmol/L (136-145)
[2025-03-31] MEDS: ipratropium-albuterol 3 mL Neb INHALATION ×4 (02:11→20:49)
--- NOTE | 2025-03-31 02:45 | PC.NURSE ---
Glucose Dr. Gaona notified of patient's elevated glucose; order received to stop d5ns.
[2025-03-31 02:47] LABS: Basophils % 0.1 %; Eosinophils % 0.1 %; Hematocrit 23.6 % (36-47); Lymphocytes # 1.3 10^3/uL (0.8-4.8); Lymphocytes % 11.3 %; Mean Corpuscular HGB Conc 32.6 g/dL (30-55); Mean Corpuscular Volume 91.8 fl (85-98); Monocytes # 0.6 10^3/uL (0.2-0.9); Monocytes % 5.2 %; Neutrophils # 9.49 10^3/uL (1.8-7.7); Neutrophils % 82.7 %; Nucleated Red Blood Cells % 0 %; Platelet Count 43 10^3/cmm (157-399); Red Blood Count 2.57 10^6/uL (3.85-5.65); Red Cell Distribution Width 13.9 % (12.1-15.1); White Blood Count 11.48 10^3/uL (3.29-11.43)
[2025-03-31 02:50] LABS: Glucose Point of Care 230 mg/dL (70-110)
[2025-03-31] MEDS: VANCOMYCIN ADD-Vantage 750 MG in 0.9% NaCl ADD-Vantage 250 ML 250 MG IV ×2 (04:14→15:04)
[2025-03-31] MEDS: meropenem 1,000 mg SDV 1000 MG IVP ×3 (04:14→19:38)
[2025-03-31 04:51] LABS: Glucose Point of Care 202 mg/dL (70-110)
[2025-03-31 05:24] LABS: Albumin Level 3.7 g/dL (3.5-5.2); Anion Gap 19.3 (5-19); Blood Urea Nitrogen 10 mg/dL (8-23); Calcium 7.2 mg/dL (8.5-10.5); Carbon Dioxide 21 mmol/L (22-29); Chloride 102 mmol/L (98-107); Creatinine Clr Calc Pharmacy 51.6769; Glomerular Filtration Rate 61.9 mL/min (90-130); Glucose 200 mg/dL (65-115); Magnesium 2.2 mg/dL (1.7-2.3); Potassium 4.3 mmol/L (3.5-5.1); Sodium 138 mmol/L (136-145)
[2025-03-31 05:27] LABS: Vancomycin Random 43.7 ug/mL (20.0-40.0)
--- NOTE | 2025-03-31 05:30 | PC.NURSE ---
Addendum entered by Ary Ramos RN 03/31/25 05:33: Witnessed waste of about 64 ml fentanyl. Original Note: Fentanyl waste Approximately 64 ml fentanyl wasted with Ary PELAEZ.
[2025-03-31 05:45] LABS: Alanine Aminotransferase 58 U/L (0-33); Albumin Level 3.7 g/dL (3.5-5.2); Alkaline Phosphatase 87 U/L (35-105); Anion Gap 17.3 (5-19); Aspartate Amino Transferase 127 U/L (0-32); Blood Urea Nitrogen 10 mg/dL (8-23); Calcium 7.1 mg/dL (8.5-10.5); Carbon Dioxide 23 mmol/L (22-29); Chloride 101 mmol/L (98-107); Creatinine Clr Calc Pharmacy 51.6769; Globulin 1.5 g/dL (1.3-4.6); Glomerular Filtration Rate 61.9 mL/min (90-130); Glucose 201 mg/dL (65-115); Osmolality Calculated 289 mOsm/kg (285-295); Potassium 4.3 mmol/L (3.5-5.1); Sodium 137 mmol/L (136-145); Total Bilirubin 1.8 mg/dL (0.15-1.2); Total Protein 5.2 g/dL (6.6-8.7)
--- NOTE | 2025-03-31 05:55 | PC.NURSE ---
Random Vanc Level Dr. Gaona notified of critical random vanc level drawn while vancomycin was administering. Order received to contact pharmacy for optimal time for redraw. Pharmacy contacted and recommendation received for random vanc level to be drawn at 1430, prior to 1500 dose.
[2025-03-31] MEDS: albumin 25 G/100 ML BAG 60 G IV ×3 (06:14→22:07)
[2025-03-31 06:17] LABS: ABG PCO2 39.7 mmHg (35-45); ABG PH Result 7.38 (7.35-7.45); Alveolar-Arterial Oxygen Gradi 12.5 mmHg (5-10); Arterial Blood Gas Hematocrit 28.1 % (37-47); Base Excess ABG -1.7 mmol/L (-2.0-2.0); Blood Gas Allen Test Pos; Blood Gas Operator Identificat SAM; Blood Gas Sample Site Radial, left; Blood Gas Sample Type Arterial; Carboxyhemoglobin 1.2 %THgb (0.4-20.1); HCO3 ABG 23.3 mmol/L (22-26); Methemoglobin 1.3 % (0.4-1.5); Oxygen Device VENT; Oxygen Saturation ABG > 99.1; PO2 FiO2 Ratio Arterial Blood 342; Potassium Level - ABG 4.4 mmol/L (3.5-5.0); Total Hemoglobin 9.2 g/dL (12-16)
[2025-03-31 06:41] LABS: Basophils % 0.2 %; Eosinophils % 0.3 %; Lymphocytes # 1.3 10^3/uL (0.8-4.8); Lymphocytes % 9.8 %; Mean Corpuscular HGB Conc 32.8 g/dL (30-55); Mean Corpuscular Hemoglobin 29.2 pg (27-33); Mean Platelet Volume 13.3 fL (7.4-10.4); Monocytes # 0.6 10^3/uL (0.2-0.9); Monocytes % 4.8 %; Neutrophils # 11.03 10^3/uL (1.8-7.7); Neutrophils % 84.2 %; Nucleated Red Blood Cells % 0 %; Platelet Count 49 10^3/cmm (157-399); Red Blood Count 2.81 10^6/uL (3.85-5.65); Red Cell Distribution Width 13.8 % (12.1-15.1); White Blood Count 13.11 10^3/uL (3.29-11.43)
[2025-03-31 07:02] LABS: Lactic Sepsis W/Reflex 1.8 mmol/L (0.5-2.2)
[2025-03-31 07:03] LABS: Anion Gap 17.6 (5-19); Blood Urea Nitrogen 9 mg/dL (8-23); Calcium 7.5 mg/dL (8.5-10.5); Carbon Dioxide 23 mmol/L (22-29); Chloride 100 mmol/L (98-107); Creatinine Clr Calc Pharmacy 51.6769; Glomerular Filtration Rate 61.9 mL/min (90-130); Glucose 192 mg/dL (65-115); Phosphorus 2.1 mg/dL (2.5-4.5); Potassium 4.6 mmol/L (3.5-5.1); Sodium 136 mmol/L (136-145)
[2025-03-31] MEDS: budesonide 0.5 mg/2 mL Neb INHALATION ×2 (08:18→20:49)
[2025-03-31 08:39] LABS: Glucose Point of Care 185 mg/dL (70-110)
--- NOTE | 2025-03-31 08:42 | P.PN_ITS ---
Subjective 2 Subjective: Pressor requirement down to 2 mcg/hr on 30 % Fio2 Medications: Reviewed: Yes Vitals/I&O/Wt Last Vital Signs Temp 90.5 F L 03/31/25 05:00 Pulse 73 03/31/25 08:28 Resp 18 03/31/25 08:23 BP 106/60 03/31/25 08:15 Pulse Ox 100 03/31/25 08:23 O2 Del Method Mechanical Ventilation 03/31/25 08:10 FiO2 40 03/31/25 08:23 03/30/25 03/31/25 03/31/25 22:59 06:59 14:59 Intake Total 1136.4509 / 3463.2959 1272.558 / 4735.8539 Output Total 122 / 140 Balance 1128.4509 / 3445.2959 1150.558 / 4595.8539 Weight last 48 hrs Weight 69 kg Weight 69 kg Weight 67.5 kg Physical Exam 2 Narrative: intubated , on pressors Urinary Catheter Management: Lundberg: Cath Placed During This Visit: yes Reason for Continuing Indwelling Catheter: Accurate Measurement of Urinary Output in Critically Ill Patients Urinary Catheter Date of Insertion: 03/29/25 Urinary Catheter Time of Insertion: 09:00 Data 03/31/25 06:29 03/31/25 06:29 Micro: Microbiology 03/29/25 21:52 Blood Culture - Preliminary Blood NEGATIVE TO DATE 03/29/25 09:45 Blood Culture - Preliminary Blood NEGATIVE TO DATE 03/30/25 08:05 Gram Stain - Final Sputum - Endotracheal Tube Aspirate A&P Assessment and plan (1) End-stage renal disease needing dialysis: Plan 1. End-stage renal disease: Recently initiated on dialysis about 2 weeks ago. Patient missed 1 session of dialysis and presents with severe metabolic acidosis and altered mental status. - was on 3 pressors but now down to 1 pressor - tolerating CRRT well so far , UF as tolerated 2. Severe anion gap metabolic acidosis, suspected secondary to possible metformin induced lactic acidosis and in the setting of renal insufficiency. Os/p bicarbonate drip and renal replacement therapy 3. Status post cardiac arrest, currently intubated on pressors 4. Question sepsis has leukocytosis, unclear source of infection, CT angiogram of the abdomen was done. No source identified. 5. Hyperkalemia, improved , HD as above 6. Anemia, hemoglobin 8.2, monitor Patient is critically ill, discussed with the patient's family at bedside in detail Patient evaluated using audiovisual cart. Time spent 40-minutes PDMP PDMP Reviewed: Not Reviewed Attestations 2 Medical Necessity Statement*: per kwame Coding Level of Care Code Acute Code for Chg Fwd Diagnoses End-stage renal disease needing dialysis N18.6; Z99.2
[2025-03-31] MEDS: vancomycin 500 MG in sodium chloride 0.9% (100 ml) 100 ML PR ×4 (08:51→21:05)
[2025-03-31 10:40] LABS: Glucose Point of Care 194 mg/dL (70-110)
[2025-03-31 11:23] LABS: Albumin Level 4.2 g/dL (3.5-5.2); Blood Urea Nitrogen 9 mg/dL (8-23); Calcium 7.7 mg/dL (8.5-10.5); Carbon Dioxide 22 mmol/L (22-29); Chloride 101 mmol/L (98-107); Creatinine Clr Calc Pharmacy 58.1365; Glomerular Filtration Rate 70.9 mL/min (90-130); Glucose 163 mg/dL (65-115); Magnesium 2.5 mg/dL (1.7-2.3); Phosphorus 2.3 mg/dL (2.5-4.5); Sodium 137 mmol/L (136-145)
[2025-03-31 11:26] LABS: Anion Gap 19.1 (5-19); Potassium 5.1 mmol/L (3.5-5.1)
[2025-03-31 12:47] LABS: Albumin Level 4.1 g/dL (3.5-5.2); Blood Urea Nitrogen 9 mg/dL (8-23); Calcium 7.7 mg/dL (8.5-10.5); Carbon Dioxide 22 mmol/L (22-29); Chloride 100 mmol/L (98-107); Creatinine Clr Calc Pharmacy 58.1365; Glomerular Filtration Rate 70.9 mL/min (90-130); Glucose 156 mg/dL (65-115); Phosphorus 2.3 mg/dL (2.5-4.5); Sodium 137 mmol/L (136-145)
[2025-03-31] MEDS: norepinephrine 4 MG/250 ML BAG 7.5 MG IV (14:05)
[2025-03-31] MEDS: midazolam hcl 100 MG/100 ML BAG IV (14:06)
--- NOTE | 2025-03-31 14:12 | PM.PN ---
Subjective Subjective: No acute events overnight. Patient is down to Levophed of 4 only. Vasopressin and epinephrine have been discontinued. Remains on CVVHD. Received 1 unit of blood transfusion. Appreciate ABG. Currently on 380 of tidal volume, 40% FiO2. Remains hypothermic on Byron hugger. Vitals/I&O/Wt Last Vital Signs Temp 91 F L 03/31/25 10:30 Pulse 76 03/31/25 13:30 Resp 14 03/31/25 13:20 BP 148/80 03/31/25 13:00 Pulse Ox 100 03/31/25 13:20 O2 Del Method Mechanical Ventilation 03/31/25 13:20 FiO2 40 03/31/25 13:20 03/30/25 03/31/25 03/31/25 22:59 06:59 14:59 Intake Total 1136.4509 / 3463.2959 1272.558 / 4735.8539 242.617 / 242.617 Output Total 122 / 140 Balance 1128.4509 / 3445.2959 1150.558 / 4595.8539 242.617 / 242.617 Weight last 48 hrs Weight 69 kg Weight 69 kg Physical Exam Narrative: General: Critically sick appearing, intubated, sedated, currently on Byron hugger HEENT: PERRLA, pupils bilaterally equal and reactive Chest: Bilateral bronchial breath sounds all lung north with diffuse rhonchi, decreased air entry bilateral lower zone CVS: S1-S2 regular, no murmurs, no tachycardia, no gallops, no rubs Abdomen: Soft, nontender, no organomegaly, bowel sounds present Neuro: Intubated, sedated Peripheries: 2+ pitting edema bilaterally upper limbs, peripheries cold and clammy to touch Resp: COMMON NORMALS: clear to auscultation bilaterally AUSCULTATION: clear to auscultation bilaterally and crackles Cardio: COMMON NORMALS: regular rate RATE: regular rate Skin: GENERAL SKIN EXAM: mottling Urinary Catheter Management: Lundberg: Cath Placed During This Visit: yes Reason for Continuing Indwelling Catheter: Accurate Measurement of Urinary Output in Critically Ill Patients Urinary Catheter Date of Insertion: 03/29/25 Urinary Catheter Time of Insertion: 09:00 Data 03/31/25 06:29 03/31/25 12:16 Micro: Microbiology 03/30/25 08:05 Gram Stain - Final Sputum - Endotracheal Tube Aspirate Sputum Culture - Preliminary Yeast species 03/29/25 21:52 Blood Culture - Preliminary Blood NEGATIVE TO DATE 03/29/25 09:45 Blood Culture - Preliminary Blood NEGATIVE TO DATE A&P Assessment and plan (1) Septic shock: Maintain mean blood pressure at 65 mmHg. Wean down from 3 pressors currently to Levophed of 4. For now we will continue to maintain on low-dose Levophed to maintain maps around 65 Source: Unknown. Cannot rule out C. difficile. Appreciate CT abdomen pelvis with chest negative for acute abnormality. Did have extensive diarrhea prior to admission. End organ damage: Multiorgan failure Follow-up blood culture both from the L3 and from HD catheter, sputum culture. Empirically continue with IV vancomycin. Will dose vancomycin as per CVVHD. Daily Vanco random levels. Continue with current dose of meropenem, rectal vancomycin 500 mg every 6 hour. High concerns for possible C. difficile. Check stool for C. difficile when possible. IV albumin every 8 hourly. Septic shock complicated with multiorgan dysfunction with concerns for CARLOS on CKD, transaminitis, respiratory failure as patient is ventilator dependent, metabolic acidosis, metabolic encephalopathy as patient remains on minimal ventilator settings currently seems to be resolving. (2) Respiratory failure: Appreciate current vent Settings. ABG showing resolved acidosis. In setting of multiorgan failure while being in septic shock and high metabolic acidosis. Oxygen supplementation keeping saturation over 90%. ABG Q12 hourly. Acidosis have resolved will plan to switch patient back to MMV mode Pulmicort twice daily, DuoNeb every 6 hour. (3) Acute renal failure: With baseline end-stage renal disease on hemodialysis which was recently started. Complicated with electrode abnormality and metabolic acidosis. Nephrology on board. Appreciate recommendations. Continue with CRRT for now. Patient continues to drain renal functions, resolution of metabolic acidosis for now we will continue with replacement therapy till later in the day. Plan to hold dialysis overnight and monitor renal functions and oxygen saturations. If hemodynamics remain stable we will can possibly transition to hemodialysis. Monitor electrolytes, BMP every 6 hours. Replace aggressively with target magnesium of around 2, phosphorus of around 2, potassium of around 4. (4) Multiple organ failure: Associated with septic shock. Patient has evidence of renal failure, transaminitis, respiratory failure being ventilator dependent, metabolic encephalopathy with hypothermia (5) Metabolic acidosis: Continue monitoring BG every 12 hours. (6) Thrombocytopenia: Acute on chronic. Down to 49,000. No active signs of bleeding. Could be in setting of severe sepsis. Cannot rule out HIT. HIT negative on recent admission the patient did receive low-dose heparin one-time. Continue to monitor. Peripheral smear to rule out schistocytes. Transfuse if falls below 20,000. (7) Anemia: No active signs of bleeding. Patient has not had any bowel movements. Most likely in setting of severe infection along with being on CVVHD. Checking CBC every 12 hours. Target hemoglobin more than 8. Transfuse accordingly. Currently post to monitor blood transfusion. (8) Shock liver: On recent admission there was a concern for cholecystitis which was ruled out by an MRCP. Resolving. Monitor transaminitis regularly. Appreciate DIC panel. Recently concern for HIT. Patient does have chronic thrombocytopenia. Patient did receive heparin overnight. For now we will hold off on heparin subcu other than the heparin which patient is receiving with CRRT. Repeat HIT panel pending. (9) DM2 (diabetes mellitus, type 2): History of uncontrolled type 2 diabetes mellitus. A1c of 12.3 as an outpatient. Blood sugars improving as D5W fluids are being discontinued. Stop insulin drip. Switch to insulin sliding scale. Hypoglycemia protocol. Blood sugars to be checked every 6 hours. (10) Electrolyte abnormality: To be replaced aggressively while patient is on CRRT. Check electrolytes, magnesium, phosphorus every 6 hour. Maintain magnesium around 2, phosphorus around 2, potassium around 4. (11) S/P PTCA (percutaneous transluminal coronary angioplasty): History of PCI in the past. No active recent chest pain as a family member. Repeat echocardiogram shows an EF of 55 to 60% with grade 1 diastolic dysfunction, mild MR mild TR. Will restart home dose of Plavix once patient starts having bowel functions again. Currently high concerns for ileus. (12) Essential hypertension: Currently in septic shock. Hold off on antihypertensive. (13) Hyperglycemia: (14) Ventilator dependent: (15) End-stage renal disease needing dialysis: Plan Hypothermia: Most likely in setting of severe septic shock. Cannot rule out in setting of central injury due to severe prolonged acidemia Already on high-dose steroids. Cannot check cortisol level. Continue with Byron johnson. Severely guarded prognosis. Anesthesia: Continue with Versed. Fentanyl 25 if patient starts waking up. Glycemic control: Uncontrolled type 2 diabetes mellitus. Currently on insulin drip Nutrition: NPO. High concerns for ileus. CODE STATUS: Discussed in detail with patient and multiple family members at bedside. Limited resuscitation with mechanical ventilation. They do not want any kind of chest compressions. If patient does not improve or has higher pressor requirement they will consider comfort care. PUD prophylaxis: Protonix DVT prophylaxis: Heparin 5000 every 12 hourly for DVT prophylaxis Discharge planning: Depending on clinical picture going forward Continue with care at ICU. Had a detailed goals of care discussions with multiple family members at bedside. We discussed unfortunately patient is extremely sick with severe guarded prognosis given multiorgan failure, septic shock requiring 3 pressors, severe metabolic acidosis requiring CRRT with setting of baseline insulin disease on hemodialysis, uncontrolled type 2 diabetes mellitus on insulin drip. Family understands that patient has grave prognosis for now. They would like to continue with current treatment. If patient has worsening or higher requirement pressors stable consider comfort care. CODE STATUS switched to limited resuscitation as above. This documentation was created by [employer] corporate physical security supervisor software. Every effort was made to ensure accuracy of corporate physical security supervisor. Any obvious errors or omissions should be clarified with the author of the document. PDMP PDMP Reviewed: Not Reviewed Attestations Medical Necessity Statement*: Requires further hospitalization for management of septic shock, multiorgan failure as patient is on CVVHD in setting of end-stage renal disease, respiratory failure on mechanical ventilator Critical Care Time: The high probability of a clinically significant, sudden or life threatening deterioration of the patient's [cardiac, renal, GI, neurological, goals of care] system(s) required my full and direct attention, intervention and personal management. The critical care time is as shown. This time is in addition to time spent performing any reported procedures but includes the following: [x] Data and vital sign review and interpretation [x] Patient assessment, examination and intervention [x] Documentation [x] Medication orders and management Critical Care Time (min): 90 Coding Level of Care Code Critical Care >/= 30 minutes Critical care time (in minutes): 90 The high probability of a clinically significant, sudden or life threatening deterioration, as referenced in this documentation, required my full and direct attention, intervention and personal management. The critical care time shown is in addition to time spent performing any reported separately billable procedures and includes the following: [x] Data and vital sign review and interpretation [x] Patient assessment, examination and intervention [x] Medication orders and management [x] Patient/Family updates as able [x] Care Coordination and Documentation. Other Coding Information This patient has a high probability of clinically significant, sudden or life threatening deterioration of the patient's (neurological/pulmonary/cardiac/renal/ID/endocrine) systems required my full, direct attention, the highest level of physician preparedness for urgent intervention and personal management. I managed/supervised life or organ supporting interventions that required frequent physician assessment. I devoted my full attention in the ICU to the direct care of this patient for the period of time indicated above. Time I spent with family or surrogate(s) is included only if the patient was incapable of providing necessary information or participating in decision making. This time includes the following services provided: Telemetry review Mechanical Ventilation Hemodynamic interpretation, assessment and management Review and interpretation of CXR Review and interpretation of lab values Review and interpretation of microbiologic data and culture results Review of medications and administration Review and interpretation of Nutrition requirements and management Discussion of management with other consultants and services Clinical update to family members Diagnoses Septic shock A41.9; R65.21 Respiratory failure J96.90 Acute renal failure N17.9 Multiple organ failure Metabolic acidosis E87.20 Thrombocytopenia D69.6 Anemia D64.9 Shock liver K72.00 DM2 (diabetes mellitus, type 2) E11.9 Electrolyte abnormality E87.8 S/P PTCA (percutaneous transluminal coronary angioplasty) Z98.61 Essential hypertension I10 Hyperglycemia R73.9 Ventilator dependent Z99.11 End-stage renal disease needing dialysis N18.6; Z99.2
[2025-03-31 15:01] LABS: ABG PH Result 7.36 (7.35-7.45); Alveolar-Arterial Oxygen Gradi 6.7 mmHg (5-10); Base Excess ABG -4.4 mmol/L (-2.0-2.0); Blood Gas Allen Test Pos; Blood Gas Operator Identificat GD; Blood Gas Sample Site Radial, left; Blood Gas Sample Type Arterial; Blood Gas Tidal Volume 0.38; Carboxyhemoglobin 1.1 %THgb (0.4-20.1); HCO3 ABG 20.7 mmol/L (22-26); HGB O2 Sat 97.4 % (95-100); Ionized Calcium Level - ABG 1.1 mmol/L (1.1-1.4); Methemoglobin 1.6 % (0.4-1.5); Oxygen Device VENT; Oxygen Saturation ABG > 99.1; PO2 FiO2 Ratio Arterial Blood 457; Potassium Level - ABG 4.5 mmol/L (3.5-5.0); Total Hemoglobin 8.8 g/dL (12-16)
[2025-03-31 17:28] LABS: Hematocrit 25.3 % (36-47); Mean Corpuscular Volume 93.7 fl (85-98); Platelet Count 42 10^3/cmm (157-399); Red Cell Distribution Width 14.7 % (12.1-15.1)
[2025-03-31 17:41] LABS: Slide Review Slide Review Perform
[2025-03-31 17:43] LABS: Albumin Level 4.6 g/dL (3.5-5.2); Anion Gap 23.7 (5-19); Blood Urea Nitrogen 8 mg/dL (8-23); Carbon Dioxide 18 mmol/L (22-29); Chloride 102 mmol/L (98-107); Creatinine Clr Calc Pharmacy 58.1365; Glomerular Filtration Rate 82.7 mL/min (90-130); Glucose 141 mg/dL (65-115); Magnesium 2.5 mg/dL (1.7-2.3); Phosphorus 2.2 mg/dL (2.5-4.5); Potassium 4.7 mmol/L (3.5-5.1); Sodium 139 mmol/L (136-145)
[2025-03-31 17:44] LABS: Absolute Segmented Neutrophil 10.9 10/cmm (1.6-7.1); Band Neutrophils Absolute 2.6 10^3/cmm (0.0-1.2); Lymphocytes 6 %; Monocytes Absolute 0.1 10^3/cmm (0.1-0.6); Segmented Neutrophils 75 %; Total Cells Counted 100 (0-100)
[2025-03-31 17:45] LABS: Absolute Neutrophil 13.5 10^3/cmm (1.4-6.5); Eosinophils 0 %; Lymphocytes Absolute 0.9 10^3/cmm (1.2-3.4); Platelet Estimate Decreased (Normal); Poikilocytosis 1+
[2025-03-31 17:53] LABS: LAB Peripheral Smear Sent for Review
[2025-03-31 18:04] LABS: ABG PCO2 33.4 mmHg (35-45); ABG PH Result 7.38 (7.35-7.45); Alveolar-Arterial Oxygen Gradi 11.2 mmHg (5-10); Arterial Blood Gas Hematocrit 26.1 % (37-47); Base Excess ABG -4.8 mmol/L (-2.0-2.0); Blood Gas Allen Test Pos; Blood Gas Operator Identificat GD; Blood Gas Sample Site Radial, left; Blood Gas Sample Type Arterial; Blood Gas Tidal Volume 0.38; Carboxyhemoglobin 1.1 %THgb (0.4-20.1); HCO3 ABG 19.7 mmol/L (22-26); HGB O2 Sat 97.4 % (95-100); Ionized Calcium Level - ABG 1.1 mmol/L (1.1-1.4); Methemoglobin 1.5 % (0.4-1.5); Oxygen Device VENT; Oxygen Saturation ABG > 99.1; PO2 FiO2 Ratio Arterial Blood 385; Potassium Level - ABG 4.5 mmol/L (3.5-5.0); Total Hemoglobin 8.5 g/dL (12-16)
--- NOTE | 2025-03-31 18:10 | PC.NURSE ---
Dr [place] and neville tobar with stopping crrt tonight, plan to monitor labs and reevaluate dialysis need in the morning
--- NOTE | 2025-03-31 19:27 | PC.NURSE ---
CRRT stopped at this time
[2025-03-31 21:25] LABS: Basophils % 0.2 %; Hematocrit 22.9 % (36-47); Lymphocytes # 1.1 10^3/uL (0.8-4.8); Lymphocytes % 7.7 %; Mean Corpuscular HGB Conc 32.3 g/dL (30-55); Mean Corpuscular Hemoglobin 29.6 pg (27-33); Mean Corpuscular Volume 91.6 fl (85-98); Mean Platelet Volume 12.7 fL (7.4-10.4); Monocytes # 0.7 10^3/uL (0.2-0.9); Monocytes % 4.8 %; Neutrophils # 12.26 10^3/uL (1.8-7.7); Neutrophils % 84.6 %; Nucleated Red Blood Cells % 0 %; Platelet Count 37 10^3/cmm (157-399); Red Cell Distribution Width 14.7 % (12.1-15.1); White Blood Count 14.48 10^3/uL (3.29-11.43)
[2025-03-31 21:35] LABS: Slide Review Slide Review Perform
[2025-03-31 21:45] LABS: Alanine Aminotransferase 47 U/L (0-33); Albumin Level 4.2 g/dL (3.5-5.2); Alkaline Phosphatase 85 U/L (35-105); Anion Gap 26.8 (5-19); Aspartate Amino Transferase 78 U/L (0-32); Blood Urea Nitrogen 11 mg/dL (8-23); Carbon Dioxide 17 mmol/L (22-29); Chloride 101 mmol/L (98-107); Creatinine Clr Calc Pharmacy 46.5092; Globulin 1.6 g/dL (1.3-4.6); Glomerular Filtration Rate 54.8 mL/min (90-130); Glucose 141 mg/dL (65-115); Osmolality Calculated 292 mOsm/kg (285-295); Potassium 4.8 mmol/L (3.5-5.1); Sodium 140 mmol/L (136-145); Total Bilirubin 1.4 mg/dL (0.15-1.2); Total Protein 5.8 g/dL (6.6-8.7)
[2025-03-31 22:41] LABS: ABG PCO2 28.5 mmHg (35-45); ABG PH Result 7.39 (7.35-7.45); Alveolar-Arterial Oxygen Gradi 12.2 mmHg (5-10); Arterial Blood Gas Hematocrit 24.3 % (37-47); Blood Gas Allen Test Pos; Blood Gas Operator Identificat SAM; Blood Gas Sample Site Radial, left; Blood Gas Sample Type Arterial; Carboxyhemoglobin 1.1 %THgb (0.4-20.1); HCO3 ABG 17.1 mmol/L (22-26); HGB O2 Sat 97.5 % (95-100); Ionized Calcium Level - ABG 1.1 mmol/L (1.1-1.4); Methemoglobin 1.4 % (0.4-1.5); Oxygen Device VENT; Oxygen Saturation ABG > 99.1; PO2 FiO2 Ratio Arterial Blood 380; Potassium Level - ABG 4.5 mmol/L (3.5-5.0); Total Hemoglobin 7.9 g/dL (12-16)
[2025-03-31 23:24] LABS: Albumin Level 4.2 g/dL (3.5-5.2); Anion Gap 24.6 (5-19); Blood Urea Nitrogen 12 mg/dL (8-23); Calcium 7.9 mg/dL (8.5-10.5); Carbon Dioxide 17 mmol/L (22-29); Chloride 101 mmol/L (98-107); Creatinine Clr Calc Pharmacy 38.7576; Glomerular Filtration Rate 44.4 mL/min (90-130); Glucose 143 mg/dL (65-115); Magnesium 2.5 mg/dL (1.7-2.3); Phosphorus 2.9 mg/dL (2.5-4.5); Potassium 4.6 mmol/L (3.5-5.1); Sodium 138 mmol/L (136-145)
--- NOTE | 2025-03-31 23:52 | PC.NURSE ---
Rings: Removed two gold bands, one kavita ring, and one emerald ring, gave to daughter in waiting room.
[2025-04-01] VITALS (105 sets, daily range): BP systolic 96–183; BP diastolic 52–115; PULSE 66–106; RESP 8–23; TEMP -12.5–37.6; O2SAT 93–100; BMI 28.6
[2025-04-01 01:00] LABS: Albumin Level 4.4 g/dL (3.5-5.2); Anion Gap 23.7 (5-19); Blood Urea Nitrogen 13 mg/dL (8-23); Calcium 8.1 mg/dL (8.5-10.5); Carbon Dioxide 18 mmol/L (22-29); Chloride 102 mmol/L (98-107); Creatinine Clr Calc Pharmacy 33.2208; Glomerular Filtration Rate 37.2 mL/min (90-130); Glucose 146 mg/dL (65-115); Phosphorus 3.2 mg/dL (2.5-4.5); Potassium 4.7 mmol/L (3.5-5.1); Sodium 139 mmol/L (136-145)
[2025-04-01] MEDS: hydrocortisone 100 mg/2 mL SDV IVP ×2 (01:47→05:57)
[2025-04-01] MEDS: pantoprazole 40 mg SDV IVP ×2 (01:47→12:57)
[2025-04-01] MEDS: ipratropium-albuterol 3 mL Neb INHALATION ×4 (02:09→20:58)
[2025-04-01 02:37] LABS: Basophils % 0.1 %; Hematocrit 25.5 % (36-47); Lymphocytes # 1.2 10^3/uL (0.8-4.8); Lymphocytes % 8.1 %; Mean Corpuscular HGB Conc 32.5 g/dL (30-55); Mean Corpuscular Hemoglobin 28.6 pg (27-33); Mean Corpuscular Volume 87.9 fl (85-98); Mean Platelet Volume 13.2 fL (7.4-10.4); Monocytes # 0.8 10^3/uL (0.2-0.9); Monocytes % 5.3 %; Neutrophils # 12.39 10^3/uL (1.8-7.7); Neutrophils % 82.6 %; Nucleated Red Blood Cells % 0.2 %; Platelet Count 39 10^3/cmm (157-399); Red Cell Distribution Width 16.9 % (12.1-15.1)
[2025-04-01] MEDS: sodium bicarbonate 150 MEQ in dextrose 5% 1,000 ML IV ×2 (02:37→09:25)
--- NOTE | 2025-04-01 03:04 | PC.NURSE ---
Patient has rested well thus far in shift. Spoke with Dr. Andrews earlier in shift regarding labs. Ordered to do ABG and give one unit of blood. Reported ABG, no orders received. Later spoke with Dr. Gaona and order obtained for bicarb drip. Daughter at bedside, updated on interventions thus far in shift.
[2025-04-01 03:07] LABS: Glucose Point of Care 156 mg/dL (70-110)
[2025-04-01] MEDS: VANCOMYCIN ADD-Vantage 750 MG in 0.9% NaCl ADD-Vantage 250 ML 250 MG IV (03:49)
[2025-04-01] MEDS: meropenem 1,000 mg SDV 1000 MG IVP ×3 (03:49→21:32)
[2025-04-01 04:43] LABS: Glucose Point of Care 202 mg/dL (70-110)
[2025-04-01 05:06] LABS: Alanine Aminotransferase 36 U/L (0-33); Albumin Level 4.2 g/dL (3.5-5.2); Alkaline Phosphatase 85 U/L (35-105); Anion Gap 24.4 (5-19); Aspartate Amino Transferase 55 U/L (0-32); Blood Urea Nitrogen 18 mg/dL (8-23); Calcium 7.7 mg/dL (8.5-10.5); Carbon Dioxide 18 mmol/L (22-29); Chloride 101 mmol/L (98-107); Creatinine Clr Calc Pharmacy 29.0682; Globulin 1.2 g/dL (1.3-4.6); Glomerular Filtration Rate 31.9 mL/min (90-130); Glucose 207 mg/dL (65-115); Osmolality Calculated 296 mOsm/kg (285-295); Potassium 4.4 mmol/L (3.5-5.1); Sodium 139 mmol/L (136-145); Total Bilirubin 1.2 mg/dL (0.15-1.2); Total Protein 5.4 g/dL (6.6-8.7)
[2025-04-01 05:08] LABS: Albumin Level 4.1 g/dL (3.5-5.2); Anion Gap 24.5 (5-19); Blood Urea Nitrogen 18 mg/dL (8-23); Calcium 7.9 mg/dL (8.5-10.5); Carbon Dioxide 18 mmol/L (22-29); Chloride 102 mmol/L (98-107); Creatinine Clr Calc Pharmacy 25.8384; Glomerular Filtration Rate 27.8 mL/min (90-130); Glucose 206 mg/dL (65-115); Magnesium 2.4 mg/dL (1.7-2.3); Phosphorus 3.6 mg/dL (2.5-4.5); Potassium 4.5 mmol/L (3.5-5.1); Sodium 140 mmol/L (136-145)
[2025-04-01 05:37] LABS: ABG PCO2 33.2 mmHg (35-45); ABG PH Result 7.37 (7.35-7.45); Alveolar-Arterial Oxygen Gradi 13.8 mmHg (5-10); Arterial Blood Gas Hematocrit 27.6 % (37-47); Base Excess ABG -5.4 mmol/L (-2.0-2.0); Blood Gas Operator Identificat SAM; Blood Gas Sample Site Brachial, right; Blood Gas Sample Type Arterial; Carboxyhemoglobin 1.1 %THgb (0.4-20.1); HCO3 ABG 19.3 mmol/L (22-26); HGB O2 Sat 97.2 % (95-100); Ionized Calcium Level - ABG 1.1 mmol/L (1.1-1.4); Methemoglobin 1.5 % (0.4-1.5); Oxygen Device VENT; Oxygen Saturation ABG > 99.1; PO2 FiO2 Ratio Arterial Blood 335; Potassium Level - ABG 4.1 mmol/L (3.5-5.0)
[2025-04-01] MEDS: fentaNYL 1,000 MCG/100 ML BAG 2.5 MCG IV (05:57)
[2025-04-01] MEDS: albumin 25 G/100 ML BAG 60 G IV ×3 (05:57→21:27)
[2025-04-01 06:31] LABS: Basophils % 0.2 %; Hematocrit 24.8 % (36-47); Lymphocytes # 0.8 10^3/uL (0.8-4.8); Lymphocytes % 5.8 %; Mean Corpuscular HGB Conc 32.7 g/dL (30-55); Mean Corpuscular Hemoglobin 28.2 pg (27-33); Mean Corpuscular Volume 86.4 fl (85-98); Monocytes # 0.6 10^3/uL (0.2-0.9); Monocytes % 4.4 %; Neutrophils # 11.94 10^3/uL (1.8-7.7); Neutrophils % 82.7 %; Nucleated Red Blood Cells % 0 %; Platelet Count 37 10^3/cmm (157-399); Red Blood Count 2.87 10^6/uL (3.85-5.65); Red Cell Distribution Width 17.6 % (12.1-15.1); White Blood Count 14.44 10^3/uL (3.29-11.43)
[2025-04-01 06:45] LABS: Anion Gap 23.2 (5-19); Blood Urea Nitrogen 19 mg/dL (8-23); Calcium 7.7 mg/dL (8.5-10.5); Carbon Dioxide 18 mmol/L (22-29); Chloride 100 mmol/L (98-107); Glomerular Filtration Rate 27.8 mL/min (90-130); Glucose 252 mg/dL (65-115); Phosphorus 3.6 mg/dL (2.5-4.5); Potassium 4.2 mmol/L (3.5-5.1); Sodium 137 mmol/L (136-145)
[2025-04-01 06:50] LABS: Creatinine Clr Calc Pharmacy 25.8384
[2025-04-01] MEDS: budesonide 0.5 mg/2 mL Neb INHALATION ×2 (08:10→20:58)
[2025-04-01] MEDS: vancomycin 500 MG in sodium chloride 0.9% (100 ml) 100 ML PR ×4 (09:27→21:21)
--- NOTE | 2025-04-01 10:01 | PC.NURSE ---
Dr. Andrews verbal order to stop bicarb drip.
--- NOTE | 2025-04-01 10:20 | P.PN_ITS ---
Subjective 2 Subjective: on 2 mcg of Levophed s/p CRRT Medications: Reviewed: Yes Vitals/I&O/Wt Last Vital Signs Temp 97.7 F 04/01/25 09:00 Pulse 90 04/01/25 09:00 Resp 21 H 04/01/25 09:26 BP 125/61 04/01/25 09:00 Pulse Ox 98 04/01/25 09:26 O2 Del Method Mechanical Ventilation 04/01/25 08:00 FiO2 40 04/01/25 09:26 03/31/25 04/01/25 04/01/25 22:59 06:59 14:59 Intake Total 490.267 / 732.884 741.167 / 3679.095 7617 / 1190 Output Total 75 / 75 150 / 225 Balance 415.267 / 657.884 591.167 / 8621.028 8562 / 1190 Weight last 48 hrs Weight 69 kg Physical Exam 2 Narrative: intubated , on pressors Urinary Catheter Management: Lundberg: Cath Placed During This Visit: yes Reason for Continuing Indwelling Catheter: Accurate Measurement of Urinary Output in Critically Ill Patients Urinary Catheter Date of Insertion: 03/29/25 Urinary Catheter Time of Insertion: 09:00 Data 04/01/25 06:23 04/01/25 06:23 Micro: Microbiology 03/30/25 08:05 Gram Stain - Final Sputum - Endotracheal Tube Aspirate Sputum Culture - Preliminary Yeast species A&P Assessment and plan (1) End-stage renal disease needing dialysis: Plan 1. End-stage renal disease: Recently initiated on dialysis about 2 weeks ago. Patient missed 1 session of dialysis and presents with severe metabolic acidosis and altered mental status. - on Levophed 2 mcg - tolerating CRRT well so far , UF as tolerated - resume CRRT today and UF upto 200 cc/hr a tolerated 2. Severe anion gap metabolic acidosis, suspected secondary to possible metformin induced lactic acidosis and in the setting of renal insufficiency. s/p bicarbonate drip and renal replacement therapy 3. Status post cardiac arrest, currently intubated on pressors 4. Question sepsis has leukocytosis, unclear source of infection, CT angiogram of the abdomen was done. No source identified. 5. Hyperkalemia, improved , HD as above 6. Anemia, hemoglobin 8.2, monitor Patient is critically ill, discussed with the patient's family at bedside in detail Patient evaluated using audiovisual cart. Time spent 40-minutes PDMP PDMP Reviewed: Not Reviewed Attestations 2 Medical Necessity Statement*: per medicine Coding Level of Care Code Acute Code for Chg Fwd Diagnoses End-stage renal disease needing dialysis N18.6; Z99.2
[2025-04-01] MEDS: midazolam hcl 100 MG/100 ML BAG IV (10:22)
[2025-04-01 10:36] LABS: Glucose Point of Care 334 mg/dL (70-110)
[2025-04-01 10:36] LABS: Glucose Point of Care 318 mg/dL (70-110)
[2025-04-01 11:16] LABS: Anion Gap 21.2 (5-19); Blood Urea Nitrogen 24 mg/dL (8-23); Calcium 7.7 mg/dL (8.5-10.5); Carbon Dioxide 21 mmol/L (22-29); Chloride 100 mmol/L (98-107); Glomerular Filtration Rate 23.3 mL/min (90-130); Glucose 321 mg/dL (65-115); Magnesium 2.5 mg/dL (1.7-2.3); Phosphorus 3.8 mg/dL (2.5-4.5); Potassium 4.2 mmol/L (3.5-5.1); Sodium 138 mmol/L (136-145)
[2025-04-01] MEDS: sodium chloride 0.9% 1,000 mL Bag CRRT (12:00)
[2025-04-01] MEDS: PrismaSol BGK 4/2.5 - 5,000 mL Bag 5000 ML CRRT ×11 (12:00→22:07)
[2025-04-01] MEDS: hydrocortisone 100 mg/2 mL SDV 50 MG IVP ×3 (12:54→23:58)
--- NOTE | 2025-04-01 15:04 | PM.PN ---
Subjective Subjective: No acute events overnight. Overnight patient has remained off CVVHD. Maintaining saturation over 95% on ventilator settings with FiO2 40%, PEEP of 5, CPAP mode. Currently when seen on bicarb drip of 150 cc/h, Versed of 4, Levophed of 2, fentanyl 25 has remained hemodynamically stable and afebrile. Not hypothermic. Mean artery pressure over 65. Vitals/I&O/Wt Last Vital Signs Temp 97.9 F 04/01/25 13:00 Pulse 86 04/01/25 14:00 Resp 18 04/01/25 13:42 BP 148/87 04/01/25 14:00 Pulse Ox 98 04/01/25 14:00 O2 Del Method Mechanical Ventilation 04/01/25 13:39 FiO2 40 04/01/25 13:42 04/01/25 04/01/25 04/01/25 06:59 14:59 22:59 Intake Total 741.167 / 0110.043 1889.466 / 1211.466 Output Total 150 / 225 60 / 60 Balance 591.167 / 2610.951 4214.466 / 1151.466 Weight last 48 hrs Weight 68.719 kg Weight 69 kg Physical Exam Narrative: General: Critically sick appearing, intubated, sedated, currently on Byron hugger HEENT: PERRLA, pupils bilaterally equal and reactive Chest: Bilateral bronchial breath sounds all lung north with diffuse rhonchi, decreased air entry bilateral lower zone CVS: S1-S2 regular, no murmurs, no tachycardia, no gallops, no rubs Abdomen: Soft, nontender, no organomegaly, bowel sounds present Neuro: Intubated, sedated Peripheries: 2+ pitting edema bilaterally upper limbs, peripheries cold and clammy to touch Resp: COMMON NORMALS: clear to auscultation bilaterally AUSCULTATION: clear to auscultation bilaterally and crackles Cardio: COMMON NORMALS: regular rate RATE: regular rate Skin: GENERAL SKIN EXAM: mottling Urinary Catheter Management: Lundberg: Cath Placed During This Visit: yes Reason for Continuing Indwelling Catheter: Accurate Measurement of Urinary Output in Critically Ill Patients Urinary Catheter Date of Insertion: 03/29/25 Urinary Catheter Time of Insertion: 09:00 Data 04/01/25 06:23 04/01/25 10:50 Micro: Microbiology 03/30/25 08:05 Gram Stain - Final Sputum - Endotracheal Tube Aspirate Sputum Culture - Preliminary Yeast species A&P Assessment and plan (1) Septic shock: Maintain mean blood pressure at 65 mmHg. Wean down from 3 pressors currently to Levophed of 4. For now we will continue to maintain on low-dose Levophed to maintain maps around 65 Source: Unknown. Cannot rule out C. difficile. Appreciate CT abdomen pelvis with chest negative for acute abnormality. Did have extensive diarrhea prior to admission. End organ damage: Multiorgan failure Follow-up blood culture both from the periphery and from HD catheter, sputum culture. Empirically continue with IV vancomycin. Will dose vancomycin as per CVVHD. Daily Vanco random levels. Continue with current dose of meropenem, rectal vancomycin 500 mg every 6 hour. High concerns for possible C. difficile. Check stool for C. difficile when possible. IV albumin every 8 hourly. Septic shock complicated with multiorgan dysfunction with concerns for CARLOS on CKD, transaminitis, respiratory failure as patient is ventilator dependent, metabolic acidosis, metabolic encephalopathy as patient remains on minimal ventilator settings currently seems to be resolving. (2) Respiratory failure: Appreciate current vent Settings. ABG showing resolved acidosis. In setting of multiorgan failure while being in septic shock and high metabolic acidosis. Oxygen supplementation keeping saturation over 90%. ABG Q12 hourly. Acidosis have resolved will plan to switch patient back to MMV mode Pulmicort twice daily, DuoNeb every 6 hour. (3) Acute renal failure: With baseline end-stage renal disease on hemodialysis which was recently started. Complicated with electrode abnormality and metabolic acidosis. Nephrology on board. Appreciate recommendations. Continue with CRRT for now. Patient continues to drain renal functions, resolution of metabolic acidosis for now we will continue with replacement therapy till later in the day. Plan to hold dialysis overnight and monitor renal functions and oxygen saturations. If hemodynamics remain stable we will can possibly transition to hemodialysis. Monitor electrolytes, BMP every 6 hours. Replace aggressively with target magnesium of around 2, phosphorus of around 2, potassium of around 4. (4) Multiple organ failure: Associated with septic shock. Patient has evidence of renal failure, transaminitis, respiratory failure being ventilator dependent, metabolic encephalopathy with hypothermia (5) Metabolic acidosis: Continue monitoring BG every 12 hours. (6) Thrombocytopenia: Acute on chronic. Down to 49,000. No active signs of bleeding. Could be in setting of severe sepsis. Cannot rule out HIT. HIT negative on recent admission the patient did receive low-dose heparin one-time. Continue to monitor. Peripheral smear to rule out schistocytes. Transfuse if falls below 20,000. (7) Anemia: No active signs of bleeding. Patient has not had any bowel movements. Most likely in setting of severe infection along with being on CVVHD. Checking CBC every 12 hours. Target hemoglobin more than 8. Transfuse accordingly. Currently post to monitor blood transfusion. (8) Shock liver: On recent admission there was a concern for cholecystitis which was ruled out by an MRCP. Resolving. Monitor transaminitis regularly. Appreciate DIC panel. Recently concern for HIT. Patient does have chronic thrombocytopenia. Patient did receive heparin overnight. For now we will hold off on heparin subcu other than the heparin which patient is receiving with CRRT. Repeat HIT panel pending. (9) DM2 (diabetes mellitus, type 2): History of uncontrolled type 2 diabetes mellitus. A1c of 12.3 as an outpatient. Blood sugars improving as D5W fluids are being discontinued. Stop insulin drip. Switch to insulin sliding scale. Hypoglycemia protocol. Blood sugars to be checked every 6 hours. (10) Electrolyte abnormality: To be replaced aggressively while patient is on CRRT. Check electrolytes, magnesium, phosphorus every 6 hour. Maintain magnesium around 2, phosphorus around 2, potassium around 4. (11) S/P PTCA (percutaneous transluminal coronary angioplasty): History of PCI in the past. No active recent chest pain as a family member. Repeat echocardiogram shows an EF of 55 to 60% with grade 1 diastolic dysfunction, mild MR mild TR. Will restart home dose of Plavix once patient starts having bowel functions again. Currently high concerns for ileus. (12) Essential hypertension: Currently in septic shock. Hold off on antihypertensive. (13) Hyperglycemia: (14) Ventilator dependent: (15) End-stage renal disease needing dialysis: Plan Hypothermia: Most likely in setting of severe septic shock. Cannot rule out in setting of central injury due to severe prolonged acidemia Already on high-dose steroids. Cannot check cortisol level. Continue with Byron johnson. Severely guarded prognosis. Anesthesia: Continue with Versed. Fentanyl 25 if patient starts waking up. Glycemic control: Uncontrolled type 2 diabetes mellitus. Currently on insulin drip Nutrition: NPO. High concerns for ileus. CODE STATUS: Discussed in detail with patient and multiple family members at bedside. Limited resuscitation with mechanical ventilation. They do not want any kind of chest compressions. If patient does not improve or has higher pressor requirement they will consider comfort care. PUD prophylaxis: Protonix DVT prophylaxis: Heparin 5000 every 12 hourly for DVT prophylaxis Discharge planning: Depending on clinical picture going forward Continue with care at ICU. Plan for the day: Appreciate blood work. Appreciate ABG. Patient not acidotic but bicarb trending down today. Discussed in detail with nephrology team. Will plan to continue CRRT for 24 more hours. Monitor CBC every 12 hours, BMP along with magnesium every 6 hours. Replace. Magnesium over 2, potassium over 4. Started hemoglobin over 8. Overall recommend a blood transfusion during her admission. Repeat CBC every 12 hours. Monitor platelet count. Currently stable around 35-37,000. Follow-up peripheral blood smear. Continue Levophed keeping mean arterial pressure 65. Wean hydrocortisone to 50 mg every 6 hours. Will target net negative on CRRT today. Follow-up blood cultures, sputum culture. Sputum cultures so far growing Emelyn. For now start on fluconazole 100 mg daily. Continue with vancomycin as per CVVHD dosing. Appreciate shorty creatinine level. Continue with IV meropenem. Rectal vancomycin every 6 hours. Continue insulin sliding scale every 6 hours. Target blood sugar around 200. Had a detailed goals of care discussions with multiple family members at bedside. We discussed unfortunately patient is extremely sick with severe guarded prognosis given multiorgan failure, septic shock requiring 3 pressors, severe metabolic acidosis requiring CRRT with setting of baseline insulin disease on hemodialysis, uncontrolled type 2 diabetes mellitus on insulin drip. Family understands that patient has grave prognosis for now. They would like to continue with current treatment. If patient has worsening or higher requirement pressors stable consider comfort care. CODE STATUS switched to limited resuscitation as above. This documentation was created by [employer] chief green officer software. Every effort was made to ensure accuracy of chief green officer. Any obvious errors or omissions should be clarified with the author of the document. PDMP PDMP Reviewed: Not Reviewed Attestations Medical Necessity Statement*: Requires further hospitalization for management of septic shock, multiorgan failure as patient is on CVVHD in setting of end-stage renal disease, respiratory failure on mechanical ventilator Critical Care Time: The high probability of a clinically significant, sudden or life threatening deterioration of the patient's [cardiac, renal, GI, neurological, goals of care] system(s) required my full and direct attention, intervention and personal management. The critical care time is as shown. This time is in addition to time spent performing any reported procedures but includes the following: [x] Data and vital sign review and interpretation [x] Patient assessment, examination and intervention [x] Documentation [x] Medication orders and management Critical Care Time (min): 90 Coding Level of Care Code Critical Care >/= 30 minutes Critical care time (in minutes): 90 The high probability of a clinically significant, sudden or life threatening deterioration, as referenced in this documentation, required my full and direct attention, intervention and personal management. The critical care time shown is in addition to time spent performing any reported separately billable procedures and includes the following: [x] Data and vital sign review and interpretation [x] Patient assessment, examination and intervention [x] Medication orders and management [x] Patient/Family updates as able [x] Care Coordination and Documentation. Other Coding Information This patient has a high probability of clinically significant, sudden or life threatening deterioration of the patient's (neurological/pulmonary/cardiac/renal/ID/endocrine) systems required my full, direct attention, the highest level of physician preparedness for urgent intervention and personal management. I managed/supervised life or organ supporting interventions that required frequent physician assessment. I devoted my full attention in the ICU to the direct care of this patient for the period of time indicated above. Time I spent with family or surrogate(s) is included only if the patient was incapable of providing necessary information or participating in decision making. This time includes the following services provided: Telemetry review Mechanical Ventilation Hemodynamic interpretation, assessment and management Review and interpretation of CXR Review and interpretation of lab values Review and interpretation of microbiologic data and culture results Review of medications and administration Review and interpretation of Nutrition requirements and management Discussion of management with other consultants and services Clinical update to family members Diagnoses Septic shock A41.9; R65.21 Respiratory failure J96.90 Acute renal failure N17.9 Multiple organ failure Metabolic acidosis E87.20 Thrombocytopenia D69.6 Anemia D64.9 Shock liver K72.00 DM2 (diabetes mellitus, type 2) E11.9 Electrolyte abnormality E87.8 S/P PTCA (percutaneous transluminal coronary angioplasty) Z98.61 Essential hypertension I10 Hyperglycemia R73.9 Ventilator dependent Z99.11 End-stage renal disease needing dialysis N18.6; Z99.2
[2025-04-01 15:24] LABS: Vancomycin Trough 21.7 ug/mL (10-15)
[2025-04-01] MEDS: norepinephrine 4 MG/250 ML BAG 7.5 MG IV (16:57)
[2025-04-01 17:07] LABS: Albumin Level 4.7 g/dL (3.5-5.2); Anion Gap 19.6 (5-19); Blood Urea Nitrogen 17 mg/dL (8-23); Calcium 8.4 mg/dL (8.5-10.5); Carbon Dioxide 24 mmol/L (22-29); Chloride 101 mmol/L (98-107); Glomerular Filtration Rate 37.2 mL/min (90-130); Glucose 206 mg/dL (65-115); Magnesium 2.6 mg/dL (1.7-2.3); Phosphorus 2.5 mg/dL (2.5-4.5); Potassium 4.6 mmol/L (3.5-5.1); Sodium 140 mmol/L (136-145)
[2025-04-01 17:09] LABS: Creatinine Clr Calc Pharmacy 33.1545
[2025-04-01] MEDS: vancomycin 500 MG in sodium chloride 0.9% (plus) 100 ML 200 MG IV (18:05)
--- NOTE | 2025-04-01 18:10 | PC.NURSE ---
Shift note: Patient remains alert and orientated when awake, lightly sedated on CPAP mode on vent. CRRT currently running. as of 1799 crrt fluid volume status was -1438. Dr. Andrews would like to be informed about changes in patients conditions up to 2200-2300pm. Meropenem and Vancomycin ordered/dosed via [employer] and to be given when CRRT machine is running. Rectal tube inserted per Dr. Almaraz orders to instill UT vanc as well. 2mcg of levophed running along with sedation medication. See JAN. Byron johnson applied to patient to keep temp regulated.
[2025-04-01 18:11] LABS: Basophils % 0.2 %; Eosinophils # 0.3 10^3/uL (0.0-0.8); Eosinophils % 1.9 %; Hematocrit 26.6 % (36-47); Lymphocytes # 1.1 10^3/uL (0.8-4.8); Lymphocytes % 5.9 %; Mean Corpuscular HGB Conc 32.7 g/dL (30-55); Mean Corpuscular Hemoglobin 28.3 pg (27-33); Mean Corpuscular Volume 86.6 fl (85-98); Monocytes # 0.7 10^3/uL (0.2-0.9); Neutrophils # 13.78 10^3/uL (1.8-7.7); Neutrophils % 76.9 %; Nucleated Red Blood Cells % 0.2 %; Platelet Count 33 10^3/cmm (157-399); Red Blood Count 3.07 10^6/uL (3.85-5.65); Red Cell Distribution Width 18.3 % (12.1-15.1); White Blood Count 17.92 10^3/uL (3.29-11.43)
[2025-04-01 18:21] LABS: Glucose Point of Care 187 mg/dL (70-110)
[2025-04-01 18:34] LABS: Slide Review Slide Review Perform
[2025-04-01 18:45] LABS: ABG PCO2 38.5 mmHg (35-45); ABG PH Result 7.41 (7.35-7.45); Alveolar-Arterial Oxygen Gradi 13.4 mmHg (5-10); Arterial Blood Gas Hematocrit 28.6 % (37-47); Base Excess ABG -0.3 mmol/L (-2.0-2.0); Blood Gas Operator Identificat GD; Blood Gas Sample Site Brachial, right; Blood Gas Sample Type Arterial; Carboxyhemoglobin 1.1 %THgb (0.4-20.1); HCO3 ABG 24.2 mmol/L (22-26); HGB O2 Sat 97.3 % (95-100); Ionized Calcium Level - ABG 1.1 mmol/L (1.1-1.4); Methemoglobin 1.3 % (0.4-1.5); Oxygen Device VENT; Oxygen Saturation ABG > 99.1; PO2 FiO2 Ratio Arterial Blood 327; Potassium Level - ABG 4.2 mmol/L (3.5-5.0); Total Hemoglobin 9.3 g/dL (12-16)
--- NOTE | 2025-04-01 19:24 | PC.NURSE ---
Reviewing nursing notes. Sodium bicarb/d%% IV fluids stopped per order from Dr Mcginnis earlier today. Medication order discontinued as per that note.
[2025-04-01 23:06] LABS: Glucose Point of Care 163 mg/dL (70-110)
[2025-04-01 23:24] LABS: Albumin Level 4.7 g/dL (3.5-5.2); Blood Urea Nitrogen 12 mg/dL (8-23); Calcium 8.4 mg/dL (8.5-10.5); Carbon Dioxide 23 mmol/L (22-29); Chloride 102 mmol/L (98-107); Creatinine Clr Calc Pharmacy 46.4163; Glomerular Filtration Rate 54.8 mL/min (90-130); Glucose 169 mg/dL (65-115); Magnesium 2.5 mg/dL (1.7-2.3); Sodium 141 mmol/L (136-145)
[2025-04-01 23:26] LABS: Anion Gap 20.8 (5-19); Potassium 4.8 mmol/L (3.5-5.1)
[2025-04-02] VITALS (80 sets, daily range): BP systolic 105–162; BP diastolic 48–112; PULSE 67–114; RESP 6–17; TEMP 34.1–36.6; O2SAT 91–99
--- NOTE | 2025-04-02 00:15 | PC.NURSE ---
Levophed paused. BP 156/97.
[2025-04-02] MEDS: lanolin oint 7 gm 1 APPLIC TOPICAL (01:05)
[2025-04-02] MEDS: pantoprazole 40 mg SDV IVP ×2 (01:06→13:22)
--- NOTE | 2025-04-02 01:20 | PC.NURSE ---
Temperature: Rectal temp continues to show low temps ; 93.2 F. Checked axillary temp: 93.5F and checked temp in groin fold 94F. All corroborating. CRRT temp set for 43 C, max amount. Byron johnson remains on at max setting of 43C, also.
[2025-04-02] MEDS: PrismaSol BGK 4/2.5 - 5,000 mL Bag 5000 ML CRRT ×8 (01:43→08:14)
[2025-04-02] MEDS: ipratropium-albuterol 3 mL Neb INHALATION ×4 (01:57→20:03)
[2025-04-02 03:05] LABS: Glucose Point of Care 177 mg/dL (70-110)
[2025-04-02 05:25] LABS: Glucose Point of Care 136 mg/dL (70-110)
[2025-04-02] MEDS: albumin 25 G/100 ML BAG 60 G IV ×3 (05:33→20:54)
[2025-04-02] MEDS: meropenem 1,000 mg SDV 1000 MG IVP (05:37)
[2025-04-02 05:52] LABS: Albumin Level 4.4 g/dL (3.5-5.2); Anion Gap 18.4 (5-19); Blood Urea Nitrogen 11 mg/dL (8-23); Calcium 8.5 mg/dL (8.5-10.5); Carbon Dioxide 24 mmol/L (22-29); Chloride 102 mmol/L (98-107); Creatinine Clr Calc Pharmacy 57.7233; Glomerular Filtration Rate 70.9 mL/min (90-130); Glucose 159 mg/dL (65-115); Magnesium 2.5 mg/dL (1.7-2.3); Phosphorus 1.9 mg/dL (2.5-4.5); Potassium 4.4 mmol/L (3.5-5.1); Sodium 140 mmol/L (136-145)
[2025-04-02 05:58] LABS: ABG PCO2 37.3 mmHg (35-45); ABG PH Result 7.43 (7.35-7.45); Alveolar-Arterial Oxygen Gradi 15.1 mmHg (5-10); Arterial Blood Gas Hematocrit 26.7 % (37-47); Base Excess ABG 0.8 mmol/L (-2.0-2.0); Blood Gas Operator Identificat SAM; Blood Gas Sample Site Brachial, right; Blood Gas Sample Type Arterial; Carboxyhemoglobin 1.3 %THgb (0.4-20.1); HGB O2 Sat 95.5 % (95-100); Ionized Calcium Level - ABG 1.1 mmol/L (1.1-1.4); Methemoglobin 1.3 % (0.4-1.5); Oxygen Device VENT; Oxygen Saturation ABG 98.1; PO2 ABG 85.5 mmHg (80.0-100.0); PO2 FiO2 Ratio Arterial Blood 244; Potassium Level - ABG 4.4 mmol/L (3.5-5.0); Total Hemoglobin 8.7 g/dL (12-16)
[2025-04-02] MEDS: hydrocortisone 100 mg/2 mL SDV 50 MG IVP ×3 (05:58→17:53)
[2025-04-02 06:02] LABS: Basophils % 0.2 %; Eosinophils % 0.2 %; Hematocrit 24.3 % (36-47); Lymphocytes % 8.2 %; Mean Corpuscular HGB Conc 32.9 g/dL (30-55); Mean Corpuscular Hemoglobin 28.9 pg (27-33); Mean Corpuscular Volume 87.7 fl (85-98); Mean Platelet Volume 12.7 fL (7.4-10.4); Monocytes # 0.4 10^3/uL (0.2-0.9); Monocytes % 3.2 %; Neutrophils % 78.8 %; Nucleated Red Blood Cells % 0 %; Red Blood Count 2.77 10^6/uL (3.85-5.65); Red Cell Distribution Width 18.5 % (12.1-15.1); White Blood Count 12.18 10^3/uL (3.29-11.43)
[2025-04-02] MEDS: vancomycin 500 MG in sodium chloride 0.9% (plus) 100 ML 200 MG IV (06:15)
[2025-04-02 06:17] LABS: Platelet Count 23 10^3/cmm (157-399); Slide Review Slide Review Perform
--- NOTE | 2025-04-02 06:27 | PC.NURSE ---
Notified Dr Henderson via telephone of improved labs except for phosphorus of 1.9 and only one bag of 4K/2.5Ca++ solution left. Orders to stop CCRT when fluids are out and 30mmols of phosphorus IV.
--- NOTE | 2025-04-02 07:01 | PC.NURSE ---
Shift summary: Pt remains oriented. She follows commands. She has deneis pain throughout shift. She has shivered off and on . Hypothermia noted, even with Byron hugger and CCRT blood warmer both maxed out at 43C. Sinus rhythm noted on monitor, no changes in rhythm. BP improved enough so that LEvophed was stopped shortly after midnight and has remained off. Fentanyl gtt at 25mcg/hr and Versed at 2mg/hr. No change to Fentanyl gtt tonight. Versed gtt decreased. Urine out put of 150ml this shift. Rectal tube remains in place, no leakage noted. Clear yellow fluid drainage in drainage bag. NO stool noted. Most like the vancomycin draining. Rectal tube was clamped for an hour , trying to help pt hold it., Not much success in that, it still drained fairly quickly. Bathing and linen change provided. She tolerated CRRT, no issues noted, this shift.
[2025-04-02] MEDS: potassium phosphate (mMol PO4) 30 MMOL in sodium chloride 0.9% (100 ml) 100 ML 25 MMOL IV (07:28)
[2025-04-02] MEDS: budesonide 0.5 mg/2 mL Neb INHALATION ×2 (07:41→20:03)
[2025-04-02] MEDS: vancomycin 500 MG in sodium chloride 0.9% (100 ml) 100 ML PR ×4 (08:06→20:55)
--- NOTE | 2025-04-02 09:34 | P.PN_ITS ---
Subjective 2 Subjective: on CRRT off levophed Medications: Reviewed: Yes Vitals/I&O/Wt Last Vital Signs Temp 95.5 F L 04/02/25 09:00 Pulse 82 04/02/25 09:00 Resp 16 04/02/25 07:42 BP 137/97 04/02/25 09:00 Pulse Ox 95 04/02/25 09:00 O2 Del Method Mechanical Ventilation 04/02/25 07:42 FiO2 35 04/02/25 07:42 04/01/25 04/02/25 04/02/25 22:59 06:59 14:59 Intake Total 508.867 / 1720.333 542.358 / 2262.691 Output Total 360 / 420 81 / 501 Balance 148.867 / 1300.333 461.358 / 1761.691 Weight last 48 hrs Weight 68 kg Weight 68.719 kg Physical Exam 2 Narrative: intubated , Urinary Catheter Management: Lundberg: Cath Placed During This Visit: yes Reason for Continuing Indwelling Catheter: Accurate Measurement of Urinary Output in Critically Ill Patients Urinary Catheter Date of Insertion: 03/29/25 Urinary Catheter Time of Insertion: 09:00 Data 04/02/25 06:00 04/02/25 04:54 A&P Assessment and plan (1) End-stage renal disease needing dialysis: Plan 1. End-stage renal disease: Recently initiated on dialysis about 2 weeks ago. Patient missed 1 session of dialysis and presents with severe metabolic acidosis and altered mental status. - off levophed -on CRRT , UF as tolerated --> will stop CRRT , electrolytes stable - watch renal fxn closely off CRRT , eval for HD in AM 2. Severe anion gap metabolic acidosis, suspected secondary to possible metformin induced lactic acidosis and in the setting of renal insufficiency. s/p bicarbonate drip and renal replacement therapy 3. Status post cardiac arrest, currently intubated on pressors 4. Question sepsis has leukocytosis, unclear source of infection, CT angiogram of the abdomen was done. No source identified. 5. Hyperkalemia, improved , HD as above 6. Anemia, hemoglobin 8.0, monitor 7. Thrombocytopenia - worsening , ? HIT Patient is critically ill, discussed with the patient's family at bedside in detail Patient evaluated using audiovisual cart. Time spent 40-minutes PDMP PDMP Reviewed: Not Reviewed Attestations 2 Medical Necessity Statement*: per kwame Coding Level of Care Code Acute Code for Chg Fwd Diagnoses End-stage renal disease needing dialysis N18.6; Z99.2
--- NOTE | 2025-04-02 09:41 | PC.NURSE ---
Dr. Salgado called, order given to stop crrt at this time
--- NOTE | 2025-04-02 10:12 | PC.NURSE ---
CRRT stopped and unhooked
[2025-04-02 11:07] LABS: Albumin Level 4.4 g/dL (3.5-5.2); Anion Gap 19.1 (5-19); Blood Urea Nitrogen 11 mg/dL (8-23); Calcium 8.6 mg/dL (8.5-10.5); Carbon Dioxide 23 mmol/L (22-29); Chloride 102 mmol/L (98-107); Creatinine Clr Calc Pharmacy 51.3096; Glomerular Filtration Rate 61.9 mL/min (90-130); Glucose 148 mg/dL (65-115); Magnesium 2.5 mg/dL (1.7-2.3); Phosphorus 3.8 mg/dL (2.5-4.5); Potassium 5.1 mmol/L (3.5-5.1); Sodium 139 mmol/L (136-145)
--- NOTE | 2025-04-02 14:38 | P.PN_ITS ---
Subjective 2 Subjective: on vent CPAP 40% Vitals/I&O/Wt Last Vital Signs Temp 95.5 F L 04/02/25 09:00 Pulse 113 H 04/02/25 13:41 Resp 16 04/02/25 13:40 BP 111/48 04/02/25 13:30 Pulse Ox 92 04/02/25 13:40 O2 Del Method Mechanical Ventilation 04/02/25 13:40 FiO2 40 04/02/25 13:40 04/01/25 04/02/25 04/02/25 22:59 06:59 14:59 Intake Total 508.867 / 1720.333 542.358 / 2262.691 105.267 / 105.267 Output Total 360 / 420 81 / 501 Balance 148.867 / 1300.333 461.358 / 1761.691 105.267 / 105.267 Weight last 48 hrs Weight 149 lb 14.629 oz Weight 151 lb 8 oz Physical Exam 2 Narrative: General: Critically sick appearing, intubated, sedated, currently on Byron hugger HEENT: PERRLA, pupils bilaterally equal and reactive Chest: Bilateral bronchial breath sounds all lung north with diffuse rhonchi, decreased air entry bilateral lower zone CVS: S1-S2 regular, no murmurs, no tachycardia, no gallops, no rubs Abdomen: Soft, nontender, no organomegaly, bowel sounds present Neuro: Intubated, sedated Peripheries: 2+ pitting edema bilaterally upper limbs, peripheries cold and clammy to touch Resp: COMMON NORMALS: clear to auscultation bilaterally AUSCULTATION: clear to auscultation bilaterally and crackles Cardio: COMMON NORMALS: regular rate RATE: regular rate Skin: GENERAL SKIN EXAM: mottling Urinary Catheter Management: Lundberg: Cath Placed During This Visit: yes Reason for Continuing Indwelling Catheter: Accurate Measurement of Urinary Output in Critically Ill Patients Urinary Catheter Date of Insertion: 03/29/25 Urinary Catheter Time of Insertion: 09:00 Data 04/02/25 06:00 04/02/25 10:43 Micro: Microbiology 03/30/25 08:05 Gram Stain - Final Sputum - Endotracheal Tube Aspirate Sputum Culture - Final Emelyn albicans A&P Assessment and plan (1) Thrombocytopenia: (2) Essential hypertension: (3) S/P PTCA (percutaneous transluminal coronary angioplasty): (4) Acute renal failure: (5) End-stage renal disease needing dialysis: (6) Metabolic acidosis: Plan (1) Septic shock: Maintain mean blood pressure at 65 mmHg. Wean down from 3 pressors currently to Levophed of 4. For now we will continue to maintain on low-dose Levophed to maintain maps around 65--> Levophed off trial precedex, anticipate to stop versed SBT Follow-up blood culture both from the periphery and from HD catheter, sputum culture. Empirically continue with IV vancomycin. Will dose vancomycin as per CVVHD. Daily Vanco random levels. Continue with current dose of meropenem, rectal vancomycin 500 mg every 6 hour. High concerns for possible C. difficile. Check stool for C. difficile when possible. IV albumin every 8 hourly. Septic shock complicated with multiorgan dysfunction with concerns for CARLOS on CKD, transaminitis, respiratory failure as patient is ventilator dependent, metabolic acidosis, metabolic encephalopathy as patient remains on minimal ventilator settings currently seems to be resolving. (2) Respiratory failure: Appreciate current vent Settings. ABG showing resolved acidosis. In setting of multiorgan failure while being in septic shock and high metabolic acidosis. Oxygen supplementation keeping saturation over 90%. CPAP sputum cx emelyn urine cx klebsiella, E coli add diflucan Pulmicort twice daily, DuoNeb every 6 hour. (3) Acute renal failure: With baseline end-stage renal disease on hemodialysis which was recently started. Complicated with electrode abnormality and metabolic acidosis. Nephrology on board. Appreciate recommendations. Continue with CRRT for now. Patient continues to drain renal functions, resolution of metabolic acidosis for now we will continue with replacement therapy till later in the day. Plan to hold dialysis overnight and monitor renal functions and oxygen saturations. If hemodynamics remain stable we will can possibly transition to hemodialysis. Monitor electrolytes, BMP every 6 hours. Replace aggressively with target magnesium of around 2, phosphorus of around 2, potassium of around 4. (4) Multiple organ failure: Associated with septic shock. Patient has evidence of renal failure, transaminitis, respiratory failure being ventilator dependent, metabolic encephalopathy with hypothermia (5) Metabolic acidosis: Continue monitoring BG every 12 hours. (6) Thrombocytopenia: Acute on chronic. Down to 49,000. No active signs of bleeding. Could be in setting of severe sepsis. Cannot rule out HIT. HIT negative on recent admission the patient did receive low-dose heparin one-time. Continue to monitor. Peripheral smear to rule out schistocytes. Transfuse if falls below 20,000. (7) Anemia: No active signs of bleeding. Patient has not had any bowel movements. Most likely in setting of severe infection along with being on CVVHD. Checking CBC every 12 hours. Target hemoglobin more than 8. Transfuse accordingly. Currently post to monitor blood transfusion. (8) Shock liver: On recent admission there was a concern for cholecystitis which was ruled out by an MRCP. Resolving. Monitor transaminitis regularly. Appreciate DIC panel. Recently concern for HIT. Patient does have chronic thrombocytopenia. Patient did receive heparin overnight. For now we will hold off on heparin subcu other than the heparin which patient is receiving with CRRT. Repeat HIT panel pending. (9) DM2 (diabetes mellitus, type 2): History of uncontrolled type 2 diabetes mellitus. A1c of 12.3 as an outpatient. Blood sugars improving as D5W fluids are being discontinued. Stop insulin drip. Switch to insulin sliding scale. Hypoglycemia protocol. Blood sugars to be checked every 6 hours. (10) Electrolyte abnormality: To be replaced aggressively while patient is on CRRT. Check electrolytes, magnesium, phosphorus every 6 hour. Maintain magnesium around 2, phosphorus around 2, potassium around 4. (11) S/P PTCA (percutaneous transluminal coronary angioplasty): History of PCI in the past. No active recent chest pain as a family member. Repeat echocardiogram shows an EF of 55 to 60% with grade 1 diastolic dysfunction, mild MR mild TR. Will restart home dose of Plavix once patient starts having bowel functions again. Currently high concerns for ileus. (12) Essential hypertension: Currently in septic shock. Hold off on antihypertensive. (13) Hyperglycemia: (14) Ventilator dependent: (15) End-stage renal disease needing dialysis: Plan Hypothermia: Most likely in setting of severe septic shock. Cannot rule out in setting of central injury due to severe prolonged acidemia Already on high-dose steroids. Cannot check cortisol level. Continue with Byron johnson. Severely guarded prognosis. Anesthesia: Continue with Versed. Fentanyl 25 if patient starts waking up. Glycemic control: Uncontrolled type 2 diabetes mellitus. Currently on insulin drip Nutrition: NPO. High concerns for ileus. CODE STATUS: Discussed in detail with patient and multiple family members at bedside. Limited resuscitation with mechanical ventilation. They do not want any kind of chest compressions. If patient does not improve or has higher pressor requirement they will consider comfort care. PUD prophylaxis: Protonix DVT prophylaxis: Heparin 5000 every 12 hourly for DVT prophylaxis Discharge planning: Depending on clinical picture going forward Continue with care at ICU. PDMP PDMP Reviewed: Not Reviewed Attestations 2 Medical Necessity Statement*: vent support Coding Level of Care Code Acute Code for Chg Fwd Diagnoses Thrombocytopenia D69.6 Essential hypertension I10 S/P PTCA (percutaneous transluminal coronary angioplasty) Z98.61 Acute renal failure N17.9 End-stage renal disease needing dialysis N18.6; Z99.2 Metabolic acidosis E87.20
[2025-04-02 18:18] LABS: Albumin Level 4.8 g/dL (3.5-5.2); Anion Gap 22.1 (5-19); Blood Urea Nitrogen 17 mg/dL (8-23); Calcium 9.3 mg/dL (8.5-10.5); Carbon Dioxide 22 mmol/L (22-29); Chloride 103 mmol/L (98-107); Creatinine Clr Calc Pharmacy 30.7857; Glomerular Filtration Rate 34.3 mL/min (90-130); Glucose 123 mg/dL (65-115); Magnesium 2.6 mg/dL (1.7-2.3); Phosphorus 3.5 mg/dL (2.5-4.5); Potassium 5.1 mmol/L (3.5-5.1); Sodium 142 mmol/L (136-145)
[2025-04-02 18:28] LABS: Basophils % 0.2 %; Hematocrit 23.7 % (36-47); Lymphocytes # 1.4 10^3/uL (0.8-4.8); Mean Corpuscular HGB Conc 32.5 g/dL (30-55); Mean Corpuscular Hemoglobin 29.1 pg (27-33); Mean Corpuscular Volume 89.4 fl (85-98); Monocytes # 0.6 10^3/uL (0.2-0.9); Monocytes % 4.4 %; Neutrophils # 11.39 10^3/uL (1.8-7.7); Neutrophils % 84.6 %; Nucleated Red Blood Cells % 0.2 %; Red Blood Count 2.65 10^6/uL (3.85-5.65); Red Cell Distribution Width 18.4 % (12.1-15.1); White Blood Count 13.47 10^3/uL (3.29-11.43)
[2025-04-02 18:51] LABS: Platelet Count 28 10^3/cmm (157-399)
[2025-04-02 18:53] LABS: Slide Review Slide Review Perform
[2025-04-02 22:36] LABS: Glucose Point of Care 203 mg/dL (70-110)
[2025-04-02 23:59] LABS: Albumin Level 4.8 g/dL (3.5-5.2); Blood Urea Nitrogen 23 mg/dL (8-23); Calcium 9.2 mg/dL (8.5-10.5); Carbon Dioxide 22 mmol/L (22-29); Chloride 103 mmol/L (98-107); Creatinine Clr Calc Pharmacy 20.9903; Glomerular Filtration Rate 22.1 mL/min (90-130); Glucose 201 mg/dL (65-115); Magnesium 2.7 mg/dL (1.7-2.3); Phosphorus 2.9 mg/dL (2.5-4.5); Sodium 141 mmol/L (136-145)
[2025-04-03] VITALS (33 sets, daily range): BP systolic 133–171; BP diastolic 58–94; PULSE 71–102; RESP 12–23; TEMP 36.4–37; O2SAT 89–97; BMI 28.3
[2025-04-03] MEDS: hydrocortisone 100 mg/2 mL SDV 50 MG IVP ×4 (01:18→17:34)
[2025-04-03] MEDS: pantoprazole 40 mg SDV IVP ×2 (01:18→12:30)
[2025-04-03] MEDS: ipratropium-albuterol 3 mL Neb INHALATION ×4 (02:30→20:09)
[2025-04-03 02:56] LABS: Glucose Point of Care 206 mg/dL (70-110)
[2025-04-03] MEDS: albumin 25 G/100 ML BAG 60 G IV ×2 (05:33→21:16)
[2025-04-03 05:55] LABS: Vancomycin Random 18.5 ug/mL (20.0-40.0)
[2025-04-03 06:04] LABS: Albumin Level 4.7 g/dL (3.5-5.2); Anion Gap 22.1 (5-19); Blood Urea Nitrogen 32 mg/dL (8-23); Calcium 9.4 mg/dL (8.5-10.5); Carbon Dioxide 22 mmol/L (22-29); Chloride 104 mmol/L (98-107); Glomerular Filtration Rate 18.2 mL/min (90-130); Glucose 221 mg/dL (65-115); Magnesium 2.8 mg/dL (1.7-2.3); Potassium 5.1 mmol/L (3.5-5.1); Sodium 143 mmol/L (136-145)
[2025-04-03] MEDS: budesonide 0.5 mg/2 mL Neb INHALATION ×2 (07:30→20:09)
[2025-04-03] MEDS: heparin, porcine 1,000 unit/mL INJ 10 mL 10000 UNIT INTRACATH (08:31)
[2025-04-03] MEDS: heparin, porcine 1,000 unit/mL INJ 10 mL 1000 UNIT IV (08:31)
--- NOTE | 2025-04-03 09:21 | PC.NURSE ---
Dr. Farnsworth rounded this morning. Advocated that patient is on zero sedation medications and patient has been on cpap mode since wednesday. Extubation would be appropriate for patient. No new orders at this time. Patient is receiving hemodiaylsis currently
--- NOTE | 2025-04-03 09:37 | P.PN_ITS ---
Subjective 2 Subjective: on vent off pressors Medications: Reviewed: Yes Vitals/I&O/Wt Last Vital Signs Temp 98.4 F 04/03/25 09:00 Pulse 90 04/03/25 09:00 Resp 18 04/03/25 09:00 BP 159/77 04/03/25 09:00 Pulse Ox 93 04/03/25 09:00 O2 Del Method Mechanical Ventilation 04/03/25 07:59 FiO2 40 04/03/25 07:30 04/02/25 04/03/25 04/03/25 22:59 06:59 14:59 Intake Total 339.817 / 445.084 200 / 200 Output Total 650 / 650 Balance 339.817 / 445.084 -650 / -204.916 200 / 200 Weight last 48 hrs Weight 68 kg Weight 68 kg Weight 68.719 kg Physical Exam 2 Narrative: intubated , Urinary Catheter Management: Lundberg: Cath Placed During This Visit: yes Reason for Continuing Indwelling Catheter: Acute Urinary Retention or Obstruction Urinary Catheter Date of Insertion: 03/29/25 Urinary Catheter Time of Insertion: 09:00 Data 04/02/25 18:20 04/03/25 05:14 Micro: Microbiology 03/30/25 08:05 Gram Stain - Final Sputum - Endotracheal Tube Aspirate Sputum Culture - Final Emelyn albicans A&P Assessment and plan (1) End-stage renal disease needing dialysis: Plan 1. End-stage renal disease: Recently initiated on dialysis about 2 weeks ago. Patient missed 1 session of dialysis and presents with severe metabolic acidosis and altered mental status. - off levophed -s/p CRRT ,tolerated well. - plan for HD today 2. Severe anion gap metabolic acidosis, suspected secondary to possible metformin induced lactic acidosis and in the setting of renal insufficiency. s/p bicarbonate drip and renal replacement therapy 3. Status post cardiac arrest, currently intubated , off pressors 4. Question sepsis has leukocytosis, unclear source of infection, CT angiogram of the abdomen was done. No source identified. 5. Hyperkalemia, improved , HD as above 6. Anemia, hemoglobin 8.0, monitor 7. Thrombocytopenia - worsening , ? HIT Patient is critically ill, discussed with the patient's family at bedside in detail Patient evaluated using audiovisual cart. Time spent 40-minutes PDMP PDMP Reviewed: Not Reviewed Attestations 2 Medical Necessity Statement*: per medicine Coding Level of Care Code Acute Code for Chg Fwd Diagnoses End-stage renal disease needing dialysis N18.6; Z99.2
[2025-04-03 11:07] LABS: Basophils % 0.3 %; Lymphocytes # 1.6 10^3/uL (0.8-4.8); Mean Corpuscular HGB Conc 32.8 g/dL (30-55); Mean Corpuscular Hemoglobin 29.6 pg (27-33); Mean Corpuscular Volume 90.3 fl (85-98); Monocytes # 0.6 10^3/uL (0.2-0.9); Monocytes % 4.1 %; Neutrophils # 13.14 10^3/uL (1.8-7.7); Neutrophils % 83.4 %; Nucleated Red Blood Cells % 0.2 %; Platelet Count 39 10^3/cmm (157-399); Red Blood Count 2.77 10^6/uL (3.85-5.65); Red Cell Distribution Width 17.8 % (12.1-15.1); White Blood Count 15.74 10^3/uL (3.29-11.43)
[2025-04-03 11:12] LABS: Slide Review Slide Review Perform
[2025-04-03 11:34] LABS: Magnesium 2.3 mg/dL (1.7-2.3); Phosphorus 1.7 mg/dL (2.5-4.5)
[2025-04-03 11:52] LABS: Alanine Aminotransferase 16 U/L (0-33); Albumin Level 5.2 g/dL (3.5-5.2); Alkaline Phosphatase 109 U/L (35-105); Anion Gap 19.2 (5-19); Aspartate Amino Transferase 20 U/L (0-32); Blood Urea Nitrogen 16 mg/dL (8-23); Calcium 9.4 mg/dL (8.5-10.5); Carbon Dioxide 26 mmol/L (22-29); Chloride 100 mmol/L (98-107); Creatinine Clr Calc Pharmacy 32.9847; Globulin 1.8 g/dL (1.3-4.6); Glomerular Filtration Rate 37.2 mL/min (90-130); Glucose 140 mg/dL (65-115); Osmolality Calculated 295 mOsm/kg (285-295); Potassium 4.2 mmol/L (3.5-5.1); Sodium 141 mmol/L (136-145); Total Bilirubin 1.7 mg/dL (0.15-1.2)
--- NOTE | 2025-04-03 12:17 | PC.NURSE ---
Dr. Farnsworth bedside, patient extubated 1203 per RT. Restraints off at 1203.
[2025-04-03] MEDS: VANCOMYCIN ADD-Vantage 750 MG in 0.9% NaCl ADD-Vantage 250 ML 250 MG IV (15:24)
--- NOTE | 2025-04-03 15:54 | P.PN_ITS ---
Subjective 2 Subjective: Extubated today Vitals/I&O/Wt Last Vital Signs Temp 98.1 F 04/03/25 11:51 Pulse 90 04/03/25 15:00 Resp 19 H 04/03/25 15:00 BP 162/77 04/03/25 15:00 Pulse Ox 92 04/03/25 15:00 O2 Del Method Nasal Cannula 04/03/25 14:12 O2 Flow Rate 3 04/03/25 14:12 FiO2 40 04/03/25 11:35 04/03/25 04/03/25 04/03/25 06:59 14:59 22:59 Intake Total 700 / 700 Output Total 650 / 650 3000 / 3000 Balance -650 / -204.916 -2300 / -2300 Weight last 48 hrs Weight 137 lb 12.623 oz Weight 149 lb 14.629 oz Weight 149 lb 14.629 oz Physical Exam 2 Narrative: General: No acute distress HEENT: PERRLA, pupils bilaterally equal and reactive Chest: Clear, equal air expansion CVS: S1-S2 regular, no murmurs, no tachycardia, no gallops, no rubs Abdomen: Soft, nontender, no organomegaly, bowel sounds present Neuro: Intubated, sedated Peripheries: 2+ pitting edema Resp: COMMON NORMALS: clear to auscultation bilaterally AUSCULTATION: clear to auscultation bilaterally and crackles Cardio: COMMON NORMALS: regular rate RATE: regular rate Skin: GENERAL SKIN EXAM: mottling Urinary Catheter Management: Lundberg: Cath Placed During This Visit: yes Reason for Continuing Indwelling Catheter: Acute Urinary Retention or Obstruction Urinary Catheter Date of Insertion: 03/29/25 Urinary Catheter Time of Insertion: 09:00 Data 04/03/25 10:47 04/03/25 10:47 Micro: Microbiology 03/30/25 08:05 Gram Stain - Final Sputum - Endotracheal Tube Aspirate Sputum Culture - Final Emelyn albicans A&P Assessment and plan (1) COPD (chronic obstructive pulmonary disease): (2) Respiratory failure: Plan (1) septic shock (2) Essential hypertension: (3) S/P PTCA (percutaneous transluminal coronary angioplasty): (4) Acute renal failure: (5) End-stage renal disease needing dialysis: (6) Metabolic acidosis: Plan (1) Septic shock: Resolved. Off pressors (2) Respiratory failure: Extubated today. Continue nasal cannula and BiPAP as needed sputum cx emelyn urine cx klebsiella, E coli add diflucan Pulmicort twice daily, DuoNeb every 6 hour. (3) Acute renal failure: Appreciate nephrology recommendations. Dialysis per nephrology (4) Multiple organ failure: Slowly improving (5) Metabolic acidosis: Mental status stable. May benefit from acetazolamide we will monitor (6) Thrombocytopenia: Monitor. Consider transfusion if falls below 20,000 pending clinical scenario (7) Anemia: No active signs of bleeding. Patient has not had any bowel movements. Most likely in setting of severe infection along with being on CVVHD. Checking CBC every 12 hours. Target hemoglobin more than 8. Transfuse accordingly. Currently post to monitor blood transfusion. (8) Shock liver: Monitor liver function (9) DM2 (diabetes mellitus, type 2): History of uncontrolled type 2 diabetes mellitus. A1c of 12.3 as an outpatient. Monitor blood sugars continue current regimen (10) Electrolyte abnormality: Monitor (11) S/P PTCA (percutaneous transluminal coronary angioplasty): History of PCI in the past. No active recent chest pain as a family member. Repeat echocardiogram shows an EF of 55 to 60% with grade 1 diastolic dysfunction, mild MR mild TR. Will restart home dose of Plavix once patient starts having bowel functions again. Currently high concerns for ileus. (12) Essential hypertension: (13) Hyperglycemia: PDMP PDMP Reviewed: Not Reviewed Attestations 2 Medical Necessity Statement*: Oxygen, monitoring labs, cardiac medications Coding Level of Care Code Acute Code for [facility] Diagnoses COPD (chronic obstructive pulmonary disease) J44.9 Respiratory failure J96.90
[2025-04-03 16:38] LABS: Glucose Point of Care 168 mg/dL (70-110)
[2025-04-03 17:28] LABS: Anion Gap 22.2 (5-19); Blood Urea Nitrogen 22 mg/dL (8-23); Calcium 9.5 mg/dL (8.5-10.5); Carbon Dioxide 22 mmol/L (22-29); Chloride 102 mmol/L (98-107); Creatinine Clr Calc Pharmacy 24.6448; Glomerular Filtration Rate 27.8 mL/min (90-130); Glucose 165 mg/dL (65-115); Magnesium 2.3 mg/dL (1.7-2.3); Phosphorus 2.2 mg/dL (2.5-4.5); Potassium 4.2 mmol/L (3.5-5.1); Sodium 142 mmol/L (136-145)
[2025-04-03 22:21] LABS: Glucose Point of Care 181 mg/dL (70-110)
[2025-04-03 23:30] LABS: Anion Gap 22.2 (5-19); Blood Urea Nitrogen 31 mg/dL (8-23); Calcium 9.5 mg/dL (8.5-10.5); Carbon Dioxide 24 mmol/L (22-29); Chloride 100 mmol/L (98-107); Creatinine Clr Calc Pharmacy 17.7442; Glucose 179 mg/dL (65-115); Magnesium 2.4 mg/dL (1.7-2.3); Phosphorus 2.1 mg/dL (2.5-4.5); Potassium 4.2 mmol/L (3.5-5.1); Sodium 142 mmol/L (136-145)
[2025-04-04] VITALS (30 sets, daily range): BP systolic 131–171; BP diastolic 66–117; PULSE 66–98; RESP 14–26; TEMP 36.5–37; O2SAT 87–98; BMI 26.0
[2025-04-04] MEDS: pantoprazole 40 mg SDV IVP ×2 (00:37→12:58)
[2025-04-04] MEDS: hydrocortisone 100 mg/2 mL SDV 50 MG IVP ×4 (00:37→17:59)
[2025-04-04] MEDS: ipratropium-albuterol 3 mL Neb INHALATION ×3 (02:15→19:52)
[2025-04-04 03:26] LABS: Heparin Induced Platelet AB NEGATIVE (NEGATIVE); Patient O.D 0.125
[2025-04-04 03:56] LABS: Glucose Point of Care 184 mg/dL (70-110)
[2025-04-04] MEDS: albumin 25 G/100 ML BAG 60 G IV (05:48)
[2025-04-04 06:00] LABS: Albumin Level 4.7 g/dL (3.5-5.2); Anion Gap 20.2 (5-19); Blood Urea Nitrogen 40 mg/dL (8-23); Calcium 9.4 mg/dL (8.5-10.5); Carbon Dioxide 24 mmol/L (22-29); Chloride 101 mmol/L (98-107); Creatinine Clr Calc Pharmacy 15.2967; Glucose 182 mg/dL (65-115); Magnesium 2.4 mg/dL (1.7-2.3); Phosphorus 2.2 mg/dL (2.5-4.5); Potassium 4.2 mmol/L (3.5-5.1); Sodium 141 mmol/L (136-145)
[2025-04-04 07:32] LABS: Glucose Point of Care 190 mg/dL (70-110)
[2025-04-04 10:01] LABS: Basophils % 0.3 %; Eosinophils # 0.2 10^3/uL (0.0-0.8); Eosinophils % 1.2 %; Hematocrit 24.2 % (36-47); Lymphocytes # 1.5 10^3/uL (0.8-4.8); Lymphocytes % 10.9 %; Mean Corpuscular HGB Conc 31.8 g/dL (30-55); Mean Corpuscular Hemoglobin 29.4 pg (27-33); Mean Corpuscular Volume 92.4 fl (85-98); Monocytes # 0.7 10^3/uL (0.2-0.9); Neutrophils % 79.6 %; Nucleated Red Blood Cells % 0.2 %; Platelet Count 36 10^3/cmm (157-399); Red Blood Count 2.62 10^6/uL (3.85-5.65); Red Cell Distribution Width 17.4 % (12.1-15.1); White Blood Count 13.82 10^3/uL (3.29-11.43)
--- NOTE | 2025-04-04 10:02 | P.PN_ITS ---
Subjective 2 Subjective: on 2L NC Medications: Reviewed: Yes Vitals/I&O/Wt Last Vital Signs Temp 97.7 F 04/04/25 08:00 Pulse 98 04/04/25 09:04 Resp 18 04/04/25 09:04 BP 164/86 04/04/25 09:00 Pulse Ox 98 04/04/25 09:04 O2 Del Method Nasal Cannula 04/04/25 09:04 O2 Flow Rate 3 04/04/25 09:04 FiO2 40 04/03/25 11:35 04/03/25 04/04/25 04/04/25 22:59 06:59 14:59 Intake Total 380 / 1080 0 / 1080 100 / 100 Balance 380 / -1920 0 / -1920 100 / 100 Weight last 48 hrs Weight 62.5 kg Weight 62.5 kg Weight 68 kg Physical Exam 2 Narrative: awake ,alert PEERLA no jvd S1s2 RRR per report Lungs clear per report Abd soft , non tender No edema Urinary Catheter Management: Lundberg: Cath Placed During This Visit: yes Reason for Continuing Indwelling Catheter: Accurate Measurement of Urinary Output in Critically Ill Patients Urinary Catheter Date of Insertion: 03/29/25 Urinary Catheter Time of Insertion: 09:00 Data 04/04/25 05:23 04/04/25 05:23 Micro: Microbiology 03/29/25 21:52 Blood Culture - Final Blood NO GROWTH AFTER 5 DAYS 03/29/25 09:45 Blood Culture - Final Blood NO GROWTH AFTER 5 DAYS A&P Assessment and plan (1) End-stage renal disease needing dialysis: Plan 1. End-stage renal disease: Recently initiated on dialysis about 2 weeks ago. Patient missed 1 session of dialysis and presents with severe metabolic acidosis and altered mental status. - off levophed -s/p CRRT ,tolerated well. - plan for HD today 2. Severe anion gap metabolic acidosis, suspected secondary to possible metformin induced lactic acidosis and in the setting of renal insufficiency. s/p bicarbonate drip and renal replacement therapy 3. Status post cardiac arrest, currently intubated , off pressors 4. Question sepsis has leukocytosis, unclear source of infection, CT angiogram of the abdomen was done. No source identified. 5. Hyperkalemia, improved , HD as above 6. Anemia, hemoglobin 8.0, monitor 7. Thrombocytopenia - worsening , ? HIT Patient is critically ill, discussed with the patient's family at bedside in detail Patient evaluated using audiovisual cart. Time spent 40-minutes PDMP PDMP Reviewed: Not Reviewed Attestations 2 Medical Necessity Statement*: per medicine Coding Level of Care Code Acute Code for Chg Fwd Diagnoses End-stage renal disease needing dialysis N18.6; Z99.2
--- NOTE | 2025-04-04 10:16 | P.PN_ITS ---
Subjective 2 Subjective: on 2l NC Extubated Medications: Reviewed: Yes Vitals/I&O/Wt Last Vital Signs Temp 97.7 F 04/04/25 08:00 Pulse 98 04/04/25 09:04 Resp 18 04/04/25 09:04 BP 164/86 04/04/25 09:00 Pulse Ox 98 04/04/25 09:04 O2 Del Method Nasal Cannula 04/04/25 09:04 O2 Flow Rate 3 04/04/25 09:04 FiO2 40 04/03/25 11:35 04/03/25 04/04/25 04/04/25 22:59 06:59 14:59 Intake Total 380 / 1080 0 / 1080 100 / 100 Balance 380 / -1920 0 / -1920 100 / 100 Weight last 48 hrs Weight 62.5 kg Weight 62.5 kg Weight 68 kg Physical Exam 2 Narrative: awake , alert PEERLA S12 RRR per report Lungs clear per report Abd soft , nontender No edema Urinary Catheter Management: Lundberg: Cath Placed During This Visit: yes Reason for Continuing Indwelling Catheter: Accurate Measurement of Urinary Output in Critically Ill Patients Urinary Catheter Date of Insertion: 03/29/25 Urinary Catheter Time of Insertion: 09:00 Data 04/04/25 05:23 04/04/25 05:23 Micro: Microbiology 03/29/25 21:52 Blood Culture - Final Blood NO GROWTH AFTER 5 DAYS 03/29/25 09:45 Blood Culture - Final Blood NO GROWTH AFTER 5 DAYS A&P Assessment and plan (1) End-stage renal disease needing dialysis: Plan 1. End-stage renal disease: Recently initiated on dialysis about 2 weeks ago. Patient missed 1 session of dialysis and presents with severe metabolic acidosis and altered mental status. - off levophed -s/p CRRT ,tolerated well.S/p HD yesterday 2. Severe anion gap metabolic acidosis, suspected secondary to possible metformin induced lactic acidosis and in the setting of renal insufficiency. s/p bicarbonate drip and renal replacement therapy 3. Status post cardiac arrest, currently extubated , off pressors 4. Question sepsis has leukocytosis, unclear source of infection, CT angiogram of the abdomen was done. No source identified. 5. Hyperkalemia, improved , HD as above 6. Anemia, hemoglobin 8.0, monitor 7. Thrombocytopenia - worsening , ? HIT Patient is critically ill, discussed with the patient's family at bedside in detail Patient evaluated using audiovisual cart. Time spent 40-minutes PDMP PDMP Reviewed: Not Reviewed Attestations 2 Medical Necessity Statement*: per kwame Coding Level of Care Code Acute Code for Chg Fwd Diagnoses End-stage renal disease needing dialysis N18.6; Z99.2
[2025-04-04 10:18] LABS: Alanine Aminotransferase 13 U/L (0-33); Albumin Level 4.7 g/dL (3.5-5.2); Alkaline Phosphatase 105 U/L (35-105); Anion Gap 20.3 (5-19); Aspartate Amino Transferase 20 U/L (0-32); Blood Urea Nitrogen 38 mg/dL (8-23); Calcium 9.3 mg/dL (8.5-10.5); Carbon Dioxide 24 mmol/L (22-29); Chloride 102 mmol/L (98-107); Creatinine Clr Calc Pharmacy 14.7869; Globulin 1.5 g/dL (1.3-4.6); Glomerular Filtration Rate 15.4 mL/min (90-130); Glucose 178 mg/dL (65-115); Osmolality Calculated 307 mOsm/kg (285-295); Potassium 4.3 mmol/L (3.5-5.1); Sodium 142 mmol/L (136-145); Total Bilirubin 1.4 mg/dL (0.15-1.2); Total Protein 6.2 g/dL (6.6-8.7)
[2025-04-04 11:46] LABS: Glucose Point of Care 287 mg/dL (70-110)
--- NOTE | 2025-04-04 13:14 | PC.NURSE ---
PT worked with patient, patient up to chair, had lunch, and just laid back down.
--- NOTE | 2025-04-04 13:58 | PC.SOCIAL ---
IMM Updated Updated pt on IMM. No questions voiced. Provided pt a copy. Initialed, dated, & timed copy in chart.
--- NOTE | 2025-04-04 14:27 | PM.PN ---
Subjective Subjective: complains of sore throat sats stable feels weak Vitals/I&O/Wt Last Vital Signs Temp 97.7 F 04/04/25 08:00 Pulse 92 04/04/25 13:20 Resp 17 04/04/25 13:08 BP 147/80 04/04/25 12:00 Pulse Ox 92 04/04/25 13:08 O2 Del Method Nasal Cannula 04/04/25 13:08 O2 Flow Rate 3 04/04/25 13:08 FiO2 40 04/03/25 11:35 04/03/25 04/04/25 04/04/25 22:59 06:59 14:59 Intake Total 380 / 1080 0 / 1080 100 / 100 Balance 380 / -1920 0 / -1920 100 / 100 Weight last 48 hrs Weight 137 lb 12.623 oz Weight 137 lb 12.623 oz Weight 149 lb 14.629 oz Physical Exam Narrative: General: No acute distress HEENT: PERRLA, pupils bilaterally equal and reactive Chest: Clear, equal air expansion CVS: S1-S2 regular, no murmurs, no tachycardia, no gallops, no rubs Abdomen: Soft, nontender, no organomegaly, bowel sounds present Neuro: Intubated, sedated Peripheries: 2+ pitting edema Resp: COMMON NORMALS: clear to auscultation bilaterally AUSCULTATION: clear to auscultation bilaterally and crackles Cardio: COMMON NORMALS: regular rate RATE: regular rate Skin: GENERAL SKIN EXAM: mottling Urinary Catheter Management: Lundberg: Cath Placed During This Visit: yes Reason for Continuing Indwelling Catheter: Accurate Measurement of Urinary Output in Critically Ill Patients Urinary Catheter Date of Insertion: 03/29/25 Urinary Catheter Time of Insertion: 09:00 Data 04/04/25 05:23 04/04/25 05:23 Micro: Microbiology 03/29/25 21:52 Blood Culture - Final Blood NO GROWTH AFTER 5 DAYS 03/29/25 09:45 Blood Culture - Final Blood NO GROWTH AFTER 5 DAYS A&P Assessment and plan (1) COPD (chronic obstructive pulmonary disease): (2) Myocardial infarction: (3) Diabetes 1.5, managed as type 2: (4) Acute renal failure: Plan (1) Septic shock: Resolved. Off pressors (2) Respiratory failure: Extubated . Continue nasal cannula and BiPAP as needed sputum cx janet urine cx klebsiella, E coli added diflucan continue meropenem Pulmicort twice daily, DuoNeb every 6 hour. (3) Acute renal failure: Appreciate nephrology recommendations. Dialysis per nephrology (4) Multiple organ failure: Slowly improving (5) Metabolic acidosis: Mental status stable. May benefit from acetazolamide we will monitor (6) Thrombocytopenia: Monitor. Consider transfusion if falls below 20,000 pending clinical scenario (7) Anemia: No active signs of bleeding. Patient has not had any bowel movements. Most likely in setting of severe infection along with being on CVVHD. Checking CBC every 12 hours. Target hemoglobin more than 8. Transfuse accordingly. Currently post to monitor blood transfusion. (8) Shock liver: Monitor liver function (9) DM2 (diabetes mellitus, type 2): History of uncontrolled type 2 diabetes mellitus. A1c of 12.3 as an outpatient. Monitor blood sugars continue current regimen (10) Electrolyte abnormality: Monitor (11) S/P PTCA (percutaneous transluminal coronary angioplasty): History of PCI in the past. No active recent chest pain as a family member. Repeat echocardiogram shows an EF of 55 to 60% with grade 1 diastolic dysfunction, mild MR mild TR. Will restart home dose of Plavix once patient starts having bowel functions again. Currently high concerns for ileus. (12) Essential hypertension: (13) Hyperglycemia: PT OT Consult PDMP PDMP Reviewed: Not Reviewed Attestations Medical Necessity Statement*: weakness, respiratory failure Coding Level of Care Code Acute Code for [facility] Fwd Diagnoses COPD (chronic obstructive pulmonary disease) J44.9 Myocardial infarction I21.9 Diabetes 1.5, managed as type 2 E13.9 Acute renal failure N17.9
[2025-04-04] MEDS: fluconazole premix 200 MG/100 ML PREMIX 100 MG IV (15:22)
--- NOTE | 2025-04-04 15:40 | PC.NURSE ---
Assumed care of patient.
--- NOTE | 2025-04-04 16:46 | PC.NURSE ---
CRRT no longer active, associated orders discontinued per protocol.
--- NOTE | 2025-04-04 16:56 | PC.NURSE ---
Care returned to BENIGNO Andrade.
[2025-04-04 17:35] LABS: Glucose Point of Care 259 mg/dL (70-110)
[2025-04-04] MEDS: budesonide 0.5 mg/2 mL Neb INHALATION (19:52)
[2025-04-04] MEDS: meropenem 500 mg SDV IVP (20:51)
[2025-04-04 22:54] LABS: Fibrinogen Degradation Product 80 mcg/mL (LESS THAN 5)
[2025-04-04 22:54] LABS: Fibrinogen Degradation Product 40 mcg/mL (LESS THAN 5)
[2025-04-04 23:15] LABS: Glucose Point of Care 298 mg/dL (70-110)
[2025-04-05] VITALS (33 sets, daily range): BP systolic 110–175; BP diastolic 50–92; PULSE 57–95; RESP 12–23; TEMP 36.1–37; O2SAT 88–100; BMI 26.0
[2025-04-05] MEDS: hydrocortisone 100 mg/2 mL SDV 50 MG IVP ×2 (01:36→07:11)
[2025-04-05] MEDS: pantoprazole 40 mg SDV IVP ×2 (01:36→12:57)
[2025-04-05 03:58] LABS: Glucose Point of Care 227 mg/dL (70-110)
[2025-04-05 05:25] LABS: Vancomycin Random 21.9 ug/mL (20.0-40.0)
[2025-04-05 07:23] LABS: Glucose Point of Care 181 mg/dL (70-110)
[2025-04-05] MEDS: budesonide 0.5 mg/2 mL Neb INHALATION ×2 (07:57→21:32)
[2025-04-05] MEDS: ipratropium-albuterol 3 mL Neb INHALATION ×3 (07:57→21:32)
[2025-04-05 08:37] LABS: Hematocrit 22.9 % (36-47); Mean Corpuscular HGB Conc 31.4 g/dL (30-55); Mean Corpuscular Hemoglobin 28.3 pg (27-33); Mean Corpuscular Volume 90.2 fl (85-98); Mean Platelet Volume 14.7 fL (7.4-10.4); Platelet Count 50 10^3/cmm (157-399); Red Blood Count 2.54 10^6/uL (3.85-5.65); Red Cell Distribution Width 17.1 % (12.1-15.1)
--- NOTE | 2025-04-05 09:13 | P.PN_ITS ---
Subjective 2 Subjective: on 2L nc Medications: Reviewed: Yes Vitals/I&O/Wt Last Vital Signs Temp 97.8 F 04/05/25 04:00 Pulse 65 04/05/25 08:02 Resp 19 H 04/05/25 08:00 BP 150/76 04/05/25 08:00 Pulse Ox 100 04/05/25 08:00 O2 Del Method Nasal Cannula 04/05/25 08:00 O2 Flow Rate 2 04/05/25 08:00 FiO2 40 04/03/25 11:35 04/04/25 04/05/25 04/05/25 22:59 06:59 14:59 Intake Total 220 / 320 Output Total 200 / 200 Balance 220 / 320 -200 / 120 Weight last 48 hrs Weight 62.5 kg Weight 62.5 kg Weight 62.5 kg Physical Exam 2 Narrative: awake , alert PEERLA S12 RRR per report Lungs clear per report Abd soft , nontender No edema Urinary Catheter Management: Lundberg: Cath Placed During This Visit: yes Reason for Continuing Indwelling Catheter: Accurate Measurement of Urinary Output in Critically Ill Patients Urinary Catheter Date of Insertion: 03/29/25 Urinary Catheter Time of Insertion: 09:00 Data 04/04/25 05:23 04/04/25 05:23 A&P Assessment and plan (1) End-stage renal disease needing dialysis: Plan 1. End-stage renal disease: Recently initiated on dialysis about 2 weeks ago. Patient missed 1 session of dialysis and presents with severe metabolic acidosis and altered mental status. - off levophed -s/p CRRT - switched to HD - plan for HD today 2. Severe anion gap metabolic acidosis, suspected secondary to possible metformin induced lactic acidosis and in the setting of renal insufficiency. s/p bicarbonate drip and renal replacement therapy 3. Status post cardiac arrest, currently extubated , off pressors 4. Question sepsis has leukocytosis, unclear source of infection, CT angiogram of the abdomen was done. No source identified. 5. Hyperkalemia, improved , HD as above 6. Anemia, hemoglobin 8.0, monitor 7. Thrombocytopenia - worsening , ? HIT Patient is critically ill, discussed with the patient's family at bedside in detail Patient evaluated using audiovisual cart. Time spent 40-minutes PDMP PDMP Reviewed: Not Reviewed Attestations 2 Medical Necessity Statement*: per kwame Coding Level of Care Code Acute Code for Chg Fwd Diagnoses End-stage renal disease needing dialysis N18.6; Z99.2
[2025-04-05 09:18] LABS: Alanine Aminotransferase 13 U/L (0-33); Albumin Level 4.5 g/dL (3.5-5.2); Alkaline Phosphatase 117 U/L (35-105); Anion Gap 21.6 (5-19); Aspartate Amino Transferase 22 U/L (0-32); Blood Urea Nitrogen 59 mg/dL (8-23); Calcium 9.5 mg/dL (8.5-10.5); Carbon Dioxide 23 mmol/L (22-29); Chloride 101 mmol/L (98-107); Creatinine Clr Calc Pharmacy 10.3164; Globulin 1.7 g/dL (1.3-4.6); Glomerular Filtration Rate 10.2 mL/min (90-130); Glucose 218 mg/dL (65-115); Osmolality Calculated 317 mOsm/kg (285-295); Potassium 3.6 mmol/L (3.5-5.1); Sodium 142 mmol/L (136-145); Total Bilirubin 1.2 mg/dL (0.15-1.2); Total Protein 6.2 g/dL (6.6-8.7)
--- NOTE | 2025-04-05 09:28 | PC.NURSE ---
Verbal order from Dr. yHlton for medium sliding scale insulin, home dose of metoprolol and amlodipine to be given after dialysis for HTN.
[2025-04-05 09:32] LABS: Absolute Segmented Neutrophil 6.7 10/cmm (1.6-7.1); Band Neutrophils Absolute 1.3 10^3/cmm (0.0-1.2); Eosinophils 0 %; Lymphocytes 22 %; Lymphocytes Absolute 2.3 10^3/cmm (1.2-3.4); Platelet Estimate Decreased (Normal); Segmented Neutrophils 63 %; Total Cells Counted 100 (0-100)
[2025-04-05] MEDS: heparin, porcine 1,000 unit/mL INJ 10 mL 1000 UNIT IV (10:25)
[2025-04-05 11:14] LABS: Glucose Point of Care 211 mg/dL (70-110)
--- NOTE | 2025-04-05 11:47 | P.PN_ITS ---
Subjective 2 Subjective: No acute events overnight. Patient seen at the bedside and feels better today. She has no new complaints today. She denies chest pain, worsening shortness of breath. Vitals/I&O/Wt Last Vital Signs Temp 97.6 F 04/05/25 09:52 Pulse 59 L 04/05/25 11:00 Resp 18 04/05/25 11:00 BP 175/86 04/05/25 11:00 Pulse Ox 99 04/05/25 11:00 O2 Del Method Nasal Cannula 04/05/25 11:00 O2 Flow Rate 2 04/05/25 11:00 FiO2 40 04/03/25 11:35 04/04/25 04/05/25 04/05/25 22:59 06:59 14:59 Intake Total 220 / 320 200 / 200 Output Total 200 / 200 Balance 220 / 320 -200 / 120 200 / 200 Weight last 48 hrs Weight 62.5 kg Weight 62.5 kg Weight 62.5 kg Physical Exam 2 Narrative: General: Awake, alert, no acute distress HEENT: PERRLA, pupils bilaterally equal and reactive Chest: Clear to auscultation bilaterally, no wheezes or crackles CVS: S1-S2 regular, no murmurs, no tachycardia, no gallops, no rubs Abdomen: Soft, nontender, no organomegaly, bowel sounds present Neuro: No gross focal deficits Peripheries: + pitting edema Urinary Catheter Management: Lundberg: Cath Placed During This Visit: yes Reason for Continuing Indwelling Catheter: Accurate Measurement of Urinary Output in Critically Ill Patients Urinary Catheter Date of Insertion: 03/29/25 Urinary Catheter Time of Insertion: 09:00 Data 04/05/25 03:53 04/05/25 03:53 A&P Assessment and plan (1) COPD (chronic obstructive pulmonary disease): (2) Myocardial infarction: (3) Diabetes 1.5, managed as type 2: (4) Acute renal failure: Plan #Septic shock -Source not very clear, might be respiratory. Sputum cultures growing Emelyn albicans - Resolved, patient currently off vasopressors -Continue to monitor, continue supportive care - Patient is currently on vancomycin, meropenem and Diflucan - Will de-escalate meropenem to ceftriaxone # Acute hypoxic respiratory failure that required intubation, mechanical ventilation - Patient successfully extubated, she is on room air - Continue to monitor - Walk study prior to discharge #Anemia of ESRD - Patient is s/p blood transfusion - Continue to monitor hemoglobin - No active signs of acute GI bleeding # ESRD on hemodialysis # Metabolic acidosis - Nephrology following for dialysis needs # Shock liver - Continue to monitor liver enzymes # Thrombocytopenia: Monitor. Consider transfusion if falls below 20,000 pending clinical scenario # Type 2 diabetes -Glucose checks, start sliding scale insulin # S/P PTCA (percutaneous transluminal coronary angioplasty): History of PCI in the past. No active recent chest pain as a family member. Repeat echocardiogram shows an EF of 55 to 60% with grade 1 diastolic dysfunction, mild MR mild TR. Chronic medications PT OT Consult for appropriate disposition PDMP PDMP Reviewed: Not Reviewed Attestations 2 Medical Necessity Statement*: Patient continues to require inpatient care for acute medical conditions Coding Level of Care Code Acute Code for [facility] Diagnoses COPD (chronic obstructive pulmonary disease) J44.9 Myocardial infarction I21.9 Diabetes 1.5, managed as type 2 E13.9 Acute renal failure N17.9
--- NOTE | 2025-04-05 12:43 | PC.NURSE ---
Spoke with Dr. Hylton regarding steroid order, patient received dose in am under Q6 order, order change to Q12 and noon dose not given due to patient already receiving am dose.
[2025-04-05] MEDS: cefTRIAXone 1,000 mg SDV 1000 MG IVP (12:57)
[2025-04-05] MEDS: insulin lispro 100 unit/1 mL SUBCUT ×2 (12:58→18:29)
[2025-04-05] MEDS: heparin, porcine 1,000 unit/mL INJ 10 mL 10000 UNIT INTRACATH (13:02)
[2025-04-05] MEDS: epoetin alfa-epbx 20,000 unit/ml SDV (ESRD) 20000 UNIT SUBCUT (14:09)
[2025-04-05] MEDS: fluconazole premix 200 MG/100 ML PREMIX 100 MG IV (15:10)
[2025-04-05 15:45] LABS: MRSA PCR OZH (swab) NOT DETECTED (Not Detecte)
[2025-04-05 17:45] LABS: Glucose Point of Care 195 mg/dL (70-110)
--- NOTE | 2025-04-05 19:30 | PC.NURSE ---
Shift note: Patient denies pain throughout shift. Up to chair for about an hour before receiving hemodialysis. 2.5L off in dialysis. Patient consumed breakfast on her own, requested assistance at the noon meal. Speech therapy Brian assisted with evening meal, see note. Patient requested to remain in bed after dialysis despite education provided on importance of ambulation. Patient worked with PT and OT. Family at bedside for majority of day. Patient frequently removes 2L NC, oxygen saturation drops to mid to low 80's. Patient states she wants to go home, expresses desire to refuse dialysis but understands the need for it. Overall effect is flat. AOX4. One small loose stool output. No urine output in [place], [place] checked for function.
[2025-04-05 20:31] LABS: Glucose Point of Care 304 mg/dL (70-110)
[2025-04-05] MEDS: metoprolol tartrate 25 mg Tablet PO (20:47)
[2025-04-05] MEDS: vancomycin 500 MG in sodium chloride 0.9% (plus) 100 ML 200 MG IV (20:47)
[2025-04-05 22:34] LABS: Glucose Point of Care 148 mg/dL (70-110)
[2025-04-06] VITALS (21 sets, daily range): BP systolic 110–165; BP diastolic 58–101; PULSE 57–93; RESP 14–23; TEMP 36.4–36.9; O2SAT 92–100
[2025-04-06] MEDS: pantoprazole 40 mg SDV IVP ×2 (00:29→13:58)
[2025-04-06] MEDS: hydrocortisone 100 mg/2 mL SDV 50 MG IVP ×2 (00:29→12:13)
[2025-04-06 02:44] LABS: Glucose Point of Care 226 mg/dL (70-110)
[2025-04-06] MEDS: ipratropium-albuterol 3 mL Neb INHALATION ×3 (03:30→13:08)
[2025-04-06 03:58] LABS: Hematocrit 24.7 % (36-47); Mean Corpuscular Hemoglobin 28.3 pg (27-33); Mean Corpuscular Volume 88.5 fl (85-98); Platelet Count 55 10^3/cmm (157-399); Red Blood Count 2.79 10^6/uL (3.85-5.65); Red Cell Distribution Width 16.4 % (12.1-15.1); White Blood Count 10.63 10^3/uL (3.29-11.43)
[2025-04-06 04:20] LABS: Alanine Aminotransferase 13 U/L (0-33); Albumin Level 4.1 g/dL (3.5-5.2); Alkaline Phosphatase 123 U/L (35-105); Anion Gap 14.5 (5-19); Aspartate Amino Transferase 29 U/L (0-32); Blood Urea Nitrogen 33 mg/dL (8-23); Calcium 8.8 mg/dL (8.5-10.5); Carbon Dioxide 27 mmol/L (22-29); Chloride 101 mmol/L (98-107); Creatinine Clr Calc Pharmacy 14.2565; Globulin 1.8 g/dL (1.3-4.6); Glomerular Filtration Rate 14.9 mL/min (90-130); Glucose 239 mg/dL (65-115); Osmolality Calculated 303 mOsm/kg (285-295); Potassium 3.5 mmol/L (3.5-5.1); Sodium 139 mmol/L (136-145); Total Bilirubin 1.2 mg/dL (0.15-1.2); Total Protein 5.9 g/dL (6.6-8.7)
[2025-04-06 04:45] LABS: Absolute Segmented Neutrophil 6.5 10/cmm (1.6-7.1); Lymphocytes 17 %; Monocytes Absolute 1.4 10^3/cmm (0.1-0.6); Segmented Neutrophils 61 %; Slide Review Slide Review Perform; Total Cells Counted 100 (0-100)
[2025-04-06 04:46] LABS: Eosinophils 0 %; Giant Platelets Trace; Platelet Estimate Decreased (Normal)
[2025-04-06 07:17] LABS: Glucose Point of Care 278 mg/dL (70-110)
[2025-04-06 07:17] LABS: Glucose Point of Care 261 mg/dL (70-110)
--- NOTE | 2025-04-06 07:32 | P.PN_ITS ---
Subjective 2 Subjective: on 2L o2 NC Medications: Reviewed: Yes Vitals/I&O/Wt Last Vital Signs Temp 98.3 F 04/06/25 07:00 Pulse 71 04/06/25 07:00 Resp 14 04/06/25 07:00 BP 138/75 04/06/25 07:00 Pulse Ox 98 04/06/25 07:00 O2 Del Method Nasal Cannula 04/06/25 07:00 O2 Flow Rate 2 04/06/25 07:00 FiO2 40 04/03/25 11:35 04/05/25 04/06/25 04/06/25 22:59 06:59 14:59 Intake Total 500 / 1200 Output Total 150 / 3150 Balance 500 / -1800 -150 / -1950 Weight last 48 hrs Weight 60.872 kg Weight 62 kg Weight 62.5 kg Physical Exam 2 Narrative: awake , alert PEERLA S12 RRR per report Lungs clear per report Abd soft , nontender No edema Urinary Catheter Management: Lundberg: Cath Placed During This Visit: yes Reason for Continuing Indwelling Catheter: Accurate Measurement of Urinary Output in Critically Ill Patients Urinary Catheter Date of Insertion: 03/29/25 Urinary Catheter Time of Insertion: 09:00 Data 04/06/25 03:35 04/06/25 03:35 A&P Assessment and plan (1) End-stage renal disease needing dialysis: Plan 1. End-stage renal disease: Recently initiated on dialysis about 2 weeks ago. Patient missed 1 session of dialysis and presents with severe metabolic acidosis and altered mental status. - off levophed -s/p CRRT - switched to HD- HD yeterday , next hD tomorrow 2. Severe anion gap metabolic acidosis, suspected secondary to possible metformin induced lactic acidosis and in the setting of renal insufficiency. s/p bicarbonate drip and renal replacement therapy 3. Status post cardiac arrest, currently extubated , off pressors 4. Question sepsis has leukocytosis, unclear source of infection, CT angiogram of the abdomen was done. No source identified. 5. Hyperkalemia, improved , HD as above 6. Anemia, hemoglobin 8.0, monitor 7. Thrombocytopenia - Patient is critically ill, discussed with the patient's family at bedside in detail Patient evaluated using audiovisual cart. Time spent 40-minutes PDMP PDMP Reviewed: Not Reviewed Attestations 2 Medical Necessity Statement*: per medicne Coding Level of Care Code Acute Code for Chg Fwd Diagnoses End-stage renal disease needing dialysis N18.6; Z99.2
[2025-04-06] MEDS: budesonide 0.5 mg/2 mL Neb INHALATION (07:56)
[2025-04-06] MEDS: amlodipine 10 mg Tablet PO (08:36)
[2025-04-06] MEDS: metoprolol tartrate 25 mg Tablet PO (08:36)
[2025-04-06] MEDS: insulin lispro 100 unit/1 mL SUBCUT (08:36)
--- NOTE | 2025-04-06 09:52 | PC.SOCIAL ---
IMM Updated Updated pt on IMM. No questions voiced. Provided pt a copy. Initialed, dated, & timed copy in chart.
--- NOTE | 2025-04-06 10:11 | PC.NURSE ---
Lundberg removed Lundberg discontinued at this time, bulb intact, pt tolerated well.
[2025-04-06 10:15] LABS: MRSA PCR OZH (swab) NOT DETECTED (Not Detecte)
--- NOTE | 2025-04-06 10:54 | PM.DCS ---
Discharge Providers Date of Admission: 03/29/25 10:06 Date of Discharge: April 06, 2025 Attending Provider at Admission: Fito Kaiser Attending Provider at Discharge: Atul Hylton MD Primary Care Provider: Dhruv Zapata MD Diagnoses at Discharge Discharge Diagnosis (1) End-stage renal disease needing dialysis: Status: Acute (2) Thrombocytopenia: Status: Acute (3) Respiratory failure: Status: Resolved (4) Metabolic acidosis: Status: Resolved (5) Septic shock: Status: Resolved (6) Elevated troponin: Status: Resolved (7) DM2 (diabetes mellitus, type 2): Status: Acute Reason for Visit Reason for Visit: SOB - hypoglycemic Brief History: Discharge Diagnosis #Septic shock - Resolved #Acute hypoxic respiratory failure that required intubation, mechanical ventilation #Anemia of ESRD #ESRD #Thrombocytopenia Secondary Diagnosis #Type 2 diabetes #History of CAD S/P PTCA (percutaneous transluminal coronary angioplasty) #History of COPD #History of Hypertension Hospital Course Hospital Course In summary, Ms Marlo Mchugh is a 70 year old woman with past medical history of ESRD on hemodialysis who presented for further evaluation of feeling unwell in the past few days. In ER she was found with severe metabolic acidosis with a lactic acid level reported to be around 28. Tachypneic, with leukocytosis and hypothermia. An abdominal CT scan without contrast was unremarkable. She was admitted for further evaluation and management. Patient was found to have severe metabolic acidosis, shock, multiple electrolyte derangements , respiratory failure and worsening kidney function. Etiology of lactic acidosis was not completely clear but thought to be metformin induced. CTA of the abdomen and pelvis was negative for signs of bowel ischemia. She was evaluated by nephrology and was started on CRRT and eventually transitioned to hemodialysis when she became more stable. Etiology of shock was thought to be septic. She required multiple vasopressors, source of infection was not completely clear. Patient also required intubation and mechanical ventilation for respiratory failure, she also required blood transfusion for anemia. Patient received broad-spectrum antibiotics with vancomycin and meropenem . Sputum cultures grew Emelyn. Blood cultures revealed no growth. Metabolic encephalopathy was in the setting of the above and improved during the course of the admission. Thrombocytopenia was thought to be in the setting of acute illness and slowly improved during the course of admission. Elevated transaminases were thought to be due to shock liver and improved during the admission . Patient had some improvement in her symptoms, was successfully extubated and gradually improved. She resumed routine hemodialysis. [facility] will [facility] hemod[facility], repeat CBC within 1 week to monitor platelets and follow-up with her PCP and nephrology outpatient. Physical Exam Narrative: General: Awake, alert, no acute distress HEENT: PERRLA, pupils bilaterally equal and reactive Chest: Clear to auscultation bilaterally, no wheezes or crackles CVS: S1-S2 regular, rate and rhythm Abdomen: Soft, nontender, no organomegaly, bowel sounds present Neuro: No gross focal deficits Peripheries:Trace pitting edema Urinary Catheter Management: Lundberg: Cath Placed During This Visit: yes Reason for Continuing Indwelling Catheter: Accurate Measurement of Urinary Output in Critically Ill Patients Urinary Catheter Date of Insertion: 03/29/25 Urinary Catheter Time of Insertion: 09:00 Discharge Data Studies Completed and Pending Completed Studies During Hospitalization Category Date Time Status CT kidney stone [id number] Stat Cat Scan 03/29/25 08:47 Completed CTA abdomen pelvis [CT angio abdomen pelvis [id number]] Stat Cat Scan 03/29/25 12:51 Completed XR chest 1V portable [id number] Stat Exams 03/29/25 08:36 Completed XR chest 1V portable [id number] Stat Exams 03/29/25 16:49 Completed CV. echo complete* [id number] Routine Ultrasound 03/29/25 15:11 Completed Pending at discharge Category Date Time Status Heparin Induced Thrombocytopen Routine Lab 03/30/25 10:51 Results Urine Random Sodium Routine Lab 03/29/25 11:07 Uncollected Vancomycin Random AM LABS Lab 04/07/25 04:00 Ordered Radiology Impressions Abdomen/Pelvis CT 03/29/25 08:47 Impression: Negative CT scan of the abdomen and pelvis with and no acute abdominal or pelvic disease. Abdomen/Pelvis CTA 03/29/25 12:51 IMPRESSION: Unremarkable CTA of the abdomen and pelvis. Chest X-Ray 03/29/25 16:49 IMPRESSION: 1. Endotracheal tube terminates above the mahin by 3.5 cm. 2. New left IJ central line with the tip in the superior vena cava. 3. Esophagogastric tube is present with the tip in the stomach. 4. No acute cardiopulmonary process. Laboratory Results WBC 10.63 10^3/uL (3.29-11.43) 04/06/25 03:35 RBC 2.79 10^6/uL (3.85-5.65) L 04/06/25 03:35 Hgb 7.90 g/dL (11.27-16.99) L 04/06/25 03:35 Hct 24.7 % (36-47) L 04/06/25 03:35 MCV 88.5 fl (85-98) 04/06/25 03:35 MCH 28.3 pg (27-33) 04/06/25 03:35 MCHC 32.0 g/dL (30-55) 04/06/25 03:35 RDW 16.4 % (12.1-15.1) H 04/06/25 03:35 Plt Count 55 10^3/cmm (157-399) L 04/06/25 03:35 MPV TNP 04/06/25 03:35 Neut % (Auto) 79.6 % 04/04/25 05:23 Lymph % (Auto) Not Reportable 04/06/25 03:35 [place] % (Auto) Not Reportable 04/06/25 03:35 Eos % (Auto) 1.2 % 04/04/25 05:23 Baso % (Auto) 0.3 % 04/04/25 05:23 Neut # (Auto) 11.00 10^3/uL (1.8-7.7) H 04/04/25 05:23 Lymph # (Auto) Not Reportable 04/06/25 03:35 [place] # (Auto) Not Reportable 04/06/25 03:35 Eos # (Auto) 0.2 10^3/uL (0.0-0.8) 04/04/25 05:23 Baso # (Auto) 0.0 10^3/uL (0.0-0.1) 04/04/25 05:23 Nucleated RBC % (auto) 0.2 % 04/04/25 05:23 Total Counted 100 (0-100) 04/06/25 03:35 Atypical Lymphs % Not Reportable 04/06/25 03:35 Absolute Neutrophils 8.0 10^3/cmm (1.4-6.5) H 04/05/25 03:53 Segmented Neutrophils 61 % 04/06/25 03:35 Band Neutrophils Not Reportable 04/06/25 03:35 Absolute Lymphocytes 2.3 10^3/cmm (1.2-3.4) 04/05/25 03:53 Lymphocytes (Manual) 17 % 04/06/25 03:35 Monocytes (Manual) 13.0 % 04/06/25 03:35 Absolute Monocytes 1.4 10^3/cmm (0.1-0.6) H 04/06/25 03:35 Eosinophils (Manual) 0 % 04/06/25 03:35 Absolute Eosinophils 0.0 10^3/cmm (0.0-0.7) 04/06/25 03:35 Basophils (Manual) 0.0 % 04/06/25 03:35 Absolute Basophils 0.0 10^3/cmm (0.0-0.2) 04/06/25 03:35 Metamyelocytes 4.0 % 04/06/25 03:35 Myelocytes 4.0 % 04/06/25 03:35 Nucleated RBCs 1.0 /100WBC (0-1) 04/06/25 03:35 Nucleated RBCs # 0.0 /100WBC 04/04/25 05:23 Platelet Estimate Decreased (Normal) L 04/06/25 03:35 Giant Platelets Trace 04/06/25 03:35 Poikilocytosis 1+ H 03/31/25 17:05 Anisocytosis Trace 03/30/25 05:58 Peripher Smr Path Cons Sent for review 03/31/25 17:05 Heparin Require Pat 0.125 03/30/25 10:51 PT 22.20 SECONDS (12.1-14.9) H 03/30/25 10:51 INR 1.82 (0.8-1.2) H 03/30/25 10:51 APTT 44.0 SECONDS (23.9-36.7) H 03/30/25 10:51 Fibrinogen 180 mg/dL (174-498) 03/30/25 10:51 Fibrin Degrad Products 40 mcg/mL (LESS THAN 5) H 03/30/25 10:56 D-Dimer >= 20.00 ug/mLFEU (0-0.59) H 03/30/25 10:51 Specimen Type Arterial 04/02/25 05:47 Sample Site Brachial, right 04/02/25 05:47 ABG pH 7.43 (7.35-7.45) 04/02/25 05:47 ABG pCO2 37.3 mmHg (35-45) 04/02/25 05:47 ABG pO2 85.5 mmHg (80.0-100.0) 04/02/25 05:47 ABG PO2/FiO2 Ratio 244 04/02/25 05:47 ABG HCO3 25.0 mmol/L (22-26) 04/02/25 05:47 ABG O2 Saturation 98.1 04/02/25 05:47 ABG Base Excess 0.8 mmol/L (-2.0-2.0) 04/02/25 05:47 Juanjose Test N/a 04/02/25 05:47 A-a O2 Gradient 15.1 mmHg (5-10) H 04/02/25 05:47 Hematocrit 26.7 % (37-47) L 04/02/25 05:47 Hgb O2 Saturation 95.5 % (95-100) 04/02/25 05:47 Carboxyhemoglobin 1.3 %THgb (0.4-20.1) 04/02/25 05:47 Methemoglobin 1.3 % (0.4-1.5) 04/02/25 05:47 Total Hemoglobin 8.7 g/dL (12-16) L 04/02/25 05:47 Sodium 140.0 mmol/L (131-143) 04/02/25 05:47 Potassium 4.4 mmol/L (3.5-5.0) 04/02/25 05:47 Glucose 160.0 mg/dL (70-115) H 04/02/25 05:47 Ionized Calcium 1.1 mmol/L (1.1-1.4) 04/02/25 05:47 O2 Delivery Device Vent 04/02/25 05:47 FiO2 35.0 % 04/02/25 05:47 Tidal Volume 0.38 03/31/25 17:48 PEEP 5.0 cmH20 04/01/25 18:05 CPAP 5.0 cmH20 04/02/25 05:47 Bail Agent ID 04/02/25 05:47 Sodium 139 mmol/L (136-145) 04/06/25 03:35 Potassium 3.5 mmol/L (3.5-5.1) 04/06/25 03:35 Chloride 101 mmol/L (98-107) 04/06/25 03:35 Carbon Dioxide 27 mmol/L (22-29) 04/06/25 03:35 Anion Gap 14.5 (5-19) 04/06/25 03:35 BUN 33 mg/dL (8-23) H 04/06/25 03:35 Creatinine 3.1 mg/dL (0.5-0.9) H 04/06/25 03:35 GFR Calculation 14.9 mL/min (90-130) L 04/06/25 03:35 Glucose 239 mg/dL (65-115) H 04/06/25 03:35 POC Glucose 261 mg/dL (70-110) H 04/06/25 07:10 Calculated Osmolality 303 mOsm/kg (285-295) H 04/06/25 03:35 Lactic Acid 1.8 mmol/L (0.5-2.2) 03/31/25 06:29 Lactic Acid (Sepsis) 31.1 mmol/L (0.5-2.2) H* 03/29/25 11:40 Calcium 8.8 mg/dL (8.5-10.5) 04/06/25 03:35 Phosphorus 2.2 mg/dL (2.5-4.5) L 04/04/25 05:23 Magnesium 2.4 mg/dL (1.7-2.3) H 04/04/25 05:23 Total Bilirubin 1.2 mg/dL (0.15-1.2) 04/06/25 03:35 AST 29 U/L (0-32) 04/06/25 03:35 ALT 13 U/L (0-33) 04/06/25 03:35 Alkaline Phosphatase 123 U/L (35-105) H 04/06/25 03:35 Creatine Kinase 49 U/L (26-192) 03/29/25 08:45 Troponin T Baseline 105 ng/L (0-10) H* 03/29/25 08:45 Troponin T 120 Minute 87.17 ng/L (0-10) H 03/29/25 10:44 Delta Troponin T -17.83 ABS# (0-10) L 03/29/25 10:44 Troponin T Hi Sens 6Hr 89.20 ng/L (0-10) H 03/29/25 14:24 Troponin T Hi Sens 6Hr Delta -15.80 ng/L (0-12) L 03/29/25 14:24 NT-Pro-B Natriuret Pep 17912 pg/mL (0-125) H 03/29/25 08:45 Total Protein 5.9 g/dL (6.6-8.7) L 04/06/25 03:35 Albumin 4.1 g/dL (3.5-5.2) 04/06/25 03:35 Globulin 1.8 g/dL (1.3-4.6) 04/06/25 03:35 Lipase 81 U/L (13-60) H 03/29/25 08:45 TSH 1.12 uIU/mL (0.27-4.20) 03/29/25 14:24 Free T4 1.02 ng/dL (0.82-1.77) 03/29/25 14:24 Free T3 1.9 PG/ML (2.0-4.4) L 03/29/25 14:24 Urine Color Yellow (Yellow) 03/29/25 09:30 Urine Appearance Clear (CLEAR) 03/29/25 09:30 Urine pH 6.0 (5-7) 03/29/25 09:30 Ur Specific [place] 1.010 (1.005-1.030) 03/29/25 09:30 Urine Protein 2+ (Negative) A 03/29/25 09:30 Urine Glucose (UA) Trace (Normal) H 03/29/25 09:30 Urine Ketones 1+ (Negative) H 03/29/25 09:30 Urine Blood 2+ (Negative) A 03/29/25 09:30 Urine Nitrate Negative (Negative) 03/29/25 09:30 Urine Bilirubin Negative (Negative) 03/29/25 09:30 Urine Urobilinogen 0.2 mg/dL (Negative) 03/29/25 09:30 Ur Leukocyte Esterase Negative (Negative) 03/29/25 09:30 Urine RBC 3-5 /hpf (0-2) 03/29/25 09:30 Urine WBC 6-10 /hpf (0-5) 03/29/25 09:30 Ur Squamous Epith Cells 0-5 /hpf (0-5) 03/29/25 09:30 Amorphous Sediment Not Reportable 03/29/25 09:30 Urine Bacteria None seen /hpf (NONE) 03/29/25 09:30 Hyaline Casts 3.30 /lpf 03/29/25 09:30 Ur Oval Fat Bodies 2+ /hpf 03/29/25 09:30 Nasal MRSA (PCR) Not detected (Not Detecte) 04/06/25 08:57 Vancomycin Trough 21.7 ug/mL (10-15) H 04/01/25 14:51 Random Vancomycin 21.9 ug/mL (20.0-40.0) 04/05/25 03:53 Heparin-induced Ab Negative (NEGATIVE) 03/30/25 10:51 Hep Bs Antigen Non-reactive (Nonreactive) 03/29/25 08:45 Hep Bs Antibody < 3.5 (11.5-1000) L 03/29/25 08:45 Hepatitis C Antibody Non-reactive (Nonreactive) 03/29/25 08:45 Blood Type A Positive 03/30/25 21:07 Rho(D) Type Rh positive 03/30/25 21:07 Antibody Screen Negative 03/30/25 21:07 Crossmatch See Detail 03/30/25 21:07 Vitals Last Vital Signs Temp 97.6 F 04/06/25 08:00 Pulse 70 04/06/25 10:00 Resp 18 04/06/25 10:00 BP 130/101 04/06/25 10:00 Pulse Ox 96 04/06/25 09:00 O2 Del Method Room Air 04/06/25 09:00 O2 Flow Rate 2 04/06/25 07:58 FiO2 40 04/03/25 11:35 Discharge Plan Discharge Patient Disposition: Xfer SNF Condition: Stable Prescriptions: New fluconazole 200 mg tablet 200 mg PO DAILY Qty: 10 0RF doxycycline hyclate 100 mg capsule 100 mg PO DAILY Qty: 6 0RF cefdinir 300 mg capsule 300 mg PO .qoday 3 Days Qty: 2 0RF Rx Instructions: Every other day post dialysis on dialysis days. Continued omeprazole 40 mg capsule,delayed release(DR/EC) 40 mg PO QAM montelukast [Singulair] 10 mg tablet 10 mg PO QAM clopidogrel 75 mg tablet 75 mg PO DAILY metoprolol tartrate 25 mg tablet 25 mg PO BID Qty: 90 3RF rosuvastatin 40 mg tablet 40 mg PO QPM insulin aspart U-100 [Novolog FlexPen U-100 Insulin] 100 unit/mL (3 mL) insulin pen See Rx Instructions .ROUTE .COMPLEX PRN (Reason: Hyperglycemia) Qty: 15 0RF Rx Instructions: Inject, subcut, 3 times daily, after meals, based on sliding scale provided. Max of 90-100 units daily. Mounjaro 5 mg/0.5 mL pen injector 5 mg SUBCUT Q7D Rx Instructions: Mondays ondansetron 8 mg tablet,disintegrating 8 mg PO BID PRN (Reason: nausea) 30 Days Qty: 0 0RF ropinirole 0.25 mg tablet 0.25 mg PO QPM 30 Days Qty: 0 0RF amlodipine 10 mg tablet 10 mg PO DAILY 30 Days Qty: 30 0RF lisinopril 20 mg tablet 10 mg PO QAM Discontinued Janumet 50-500 mg tablet 1 tab PO BID gabapentin 800 mg tablet 800 mg PO QID Discharge Orders: Discharge Order (Routine); Ordered 04/06/25 Ordered By: Atul Hylton Other Ambulatory Orders: Complete Blood Count w/Auto (Routine) Timeframe: 1 Week Location: Determined by Patient Ordered By: Atul Hylton Referrals: [facility] [Outside] Dhruv Zapata MD [Primary Care Provider, Family Practice] - 1 week Referral Note: follow up to coincide with [facility] to schedule; Discharge Diet: Advance as tolerated Discharge Activity: Increase activity as tolerated and As per PT/OT instructions Patient Instructions: Doxycycline (By mouth), Fluconazole (By mouth) (Diflucan), Cefdinir (By mouth) (Omnicef), Hyperglycemia, Sepsis (DC), End Stage Kidney Disease (DC), Respiratory Care (DC), Lactic Acidosis (GEN), Aspiration Precautions (DC), Acute Respiratory Failure (ED), Opioid Safety Activity Restrictions/Additional Instructions: Check complete blood panel within 1 week and send results to PCP Discharge Attestations Time Spent in Discharge Care*: greater than 30 min Quality Metrics Clinical Quality Measures [ No reported AMI, CVA or VTE this stay] Coding Level of Care Code Acute Code for Chg Fwd Diagnoses End-stage renal disease needing dialysis N18.6; Z99.2 Thrombocytopenia D69.6 Respiratory failure J96.90 Metabolic acidosis E87.20 Septic shock A41.9; R65.21 Elevated troponin R79.89 DM2 (diabetes mellitus, type 2) E11.9
[2025-04-06 11:14] LABS: Glucose Point of Care 128 mg/dL (70-110)
[2025-04-06] MEDS: cefTRIAXone 1,000 mg SDV 1000 MG IVP (12:13)
[2025-04-06 13:39] LABS: SARS Covid-2 Antigen Negative (Negative)
[2025-04-06] MEDS: fluconazole premix 200 MG/100 ML PREMIX 100 MG IV (14:49)
[2025-04-06 21:04] LABS: UFH High Dose, 100 IU/ML 12 % release; UFH Low Dose, 0.1 IU/ML 3 % release; UFH Low Dose, 0.5 IU/ML 6 % release; UFH SRA Result NEGATIVE (NEGATIVE)
== END 2025-04-06 16:15 | disposition skilled nursing facility (03) | DRG 870 ==
LOC: ER 09:07 → ICU 10:07
PROVIDERS: Family Medicine; Hospitalist; Internal Medicine; Student in an Organized Health Care Education/Training Program; Admitting Provider Internal Medicine; Emergency Provider Family Medicine; PCP Family Medicine; Visit Provider Student in an Organized Health Care Education/Training Program
DX: A41.9 Sepsis, unspecified organism (principal); G93.41 Metabolic encephalopathy; R65.21 Severe sepsis with septic shock; N18.6 End stage renal disease; J96.01 Acute respiratory failure with hypoxia; K72.00 Acute and subacute hepatic failure without coma; I12.0 Hypertensive chronic kidney disease with stage 5 chronic kidney disease or end stage renal disease; N17.9 Acute kidney failure, unspecified; E87.20 Acidosis, unspecified; E11.649 Type 2 diabetes mellitus with hypoglycemia without coma; E11.22 Type 2 diabetes mellitus with diabetic chronic kidney disease; Z79.85 Long-term (current) use of injectable non-insulin antidiabetic drugs; Z79.4 Long term (current) use of insulin; Z79.84 Long term (current) use of oral hypoglycemic drugs; D69.6 Thrombocytopenia, unspecified; R79.89 Other specified abnormal findings of blood chemistry; I25.10 Atherosclerotic heart disease of native coronary artery without angina pectoris; J44.9 Chronic obstructive pulmonary disease, unspecified; D63.1 Anemia in chronic kidney disease; E87.5 Hyperkalemia; E83.51 Hypocalcemia; E83.39 Other disorders of phosphorus metabolism; E83.42 Hypomagnesemia; K21.9 Gastro-esophageal reflux disease without esophagitis; E78.5 Hyperlipidemia, unspecified; R68.0 Hypothermia, not associated with low environmental temperature; Z95.5 Presence of coronary angioplasty implant and graft; I25.2 Old myocardial infarction; Z79.02 Long term (current) use of antithrombotics/antiplatelets
CPT/HCPCS: 36415; 36416; 36430; 36592; 36600; 51702; 71045; 74174; 74176; 80051; 80053; 80069; 80202; 80503; 81001; 82330; 82550; 82803; 82805; 82962; 83605; 83690; 83735; 83880; 84100; 84439; 84443; 84481; 84484; 85007; 85025; 85027; 85362; 85378; 85384; 85610; 85730; 86706; 86803; 86850; 86900; 86920; 87040; 87070; 87106; 87205; 87340; 87426; 90935; 92507; 92523; 92526; 92610; 93005; 93306; 94002; 94003; 94640; 94664; 94799; 96365; 96366; 96367; 96372; 96374; 96375; 96376; 97110; 97116; 97162; 97167; 97530; 97535; 99291; 99292; J0171; J0696; J1450; J1610; J1642; J1644; J1650; J1720; J1815; J1938; J2185; J2250; J2470; J2598; J3010; J3370; J3475; J3490; J7030; J7042; J7050; J7060; J7070; J7120; J7626; J7799; J9999; P9016; P9040; P9046; Q3014; Q5105

== ENCOUNTER 2025-06-29 13:37 | Outpatient (CLI) | payer OTHER, MEDICARE, SELFPAY ==
[2025-06-29 14:12] LABS: Hematocrit 32.8 % (36-47); Hemoglobin 11.50 g/dL (11.27-16.99); Mean Corpuscular HGB Conc 35.1 g/dL (30-55); Mean Corpuscular Hemoglobin 31.6 pg (27-33); Mean Corpuscular Volume 90.1 fl (85-98); Nucleated Red Blood Cells % 0 %; Platelet Count 155 10^3/cmm (157-399); Red Blood Count 3.64 10^6/uL (3.85-5.65); White Blood Count 8.22 10^3/uL (3.29-11.43)
[2025-06-29 14:36] LABS: Alanine Aminotransferase 25 U/L (0-33); Albumin Level 4.2 g/dL (3.5-5.2); Alkaline Phosphatase 139 U/L (35-105); Anion Gap 17.9 (5-19); Aspartate Amino Transferase 35 U/L (0-32); Blood Urea Nitrogen 16 mg/dL (8-23); Calcium 8.7 mg/dL (8.5-10.5); Carbon Dioxide 22 mmol/L (22-29); Chloride 95 mmol/L (98-107); Cholesterol 141 mg/dL (0-200); Globulin 2.7 g/dL (1.3-4.6); HDL Cholesterol 46 mg/dL (60-100); Osmolality Calculated 299 mOsm/kg (285-295); Sodium 132 mmol/L (136-145); Total Protein 6.9 g/dL (6.6-8.7); Triglycerides 215 mg/dL (0-150)
[2025-06-29 14:39] LABS: Creatinine Urine, Random 49 mg/dL (28-217)
[2025-06-29 14:41] LABS: Microalbum Creatinine Ratio Ur 61 mg/dL (0-20)
[2025-06-29 14:44] LABS: Estmated Average Glucose 194; Hemoglobin A1C 8.4 % (4.0-6.0)
[2025-06-29 14:57] LABS: Glucose 530 mg/dL (65-115); Potassium 2.9 mmol/L (3.5-5.1)
== END 2025-06-29 13:38 | disposition home or self-care (01) ==
LOC: LAB 13:41
PROVIDERS: Student in an Organized Health Care Education/Training Program; PCP Family Medicine; Visit Provider Internal Medicine
DX: D69.6 Thrombocytopenia, unspecified (principal); E11.9 Type 2 diabetes mellitus without complications; I25.10 Atherosclerotic heart disease of native coronary artery without angina pectoris; E78.2 Mixed hyperlipidemia
CPT/HCPCS: 36415; 80053; 80061; 82044; 83036; 85025

== ENCOUNTER 2025-07-11 12:28 | Outpatient (CLI) | payer MEDICARE, OTHER, SELFPAY ==
[2025-07-11 13:59] LABS: Hematocrit 37.8 % (36-47); Hemoglobin 12.90 g/dL (11.27-16.99); Mean Corpuscular HGB Conc 34.1 g/dL (30-55); Mean Corpuscular Hemoglobin 30.9 pg (27-33); Mean Corpuscular Volume 90.4 fl (85-98); Nucleated Red Blood Cells % 0 %; Platelet Count 193 10^3/cmm (157-399); Red Blood Count 4.18 10^6/uL (3.85-5.65); White Blood Count 10.27 10^3/uL (3.29-11.43)
[2025-07-11 14:21] LABS: Albumin Level 4.4 g/dL (3.5-5.2); Anion Gap 17.0 (5-19); Blood Urea Nitrogen 22 mg/dL (8-23); Calcium 10.1 mg/dL (8.5-10.5); Calcium 9.9 mg/dL (8.5-10.5); Carbon Dioxide 19 mmol/L (22-29); Chloride 101 mmol/L (98-107); Glucose 304 mg/dL (65-115); Potassium 4.0 mmol/L (3.5-5.1); Sodium 133 mmol/L (136-145)
[2025-07-11 14:26] LABS: Creatinine Urine, Random 98 mg/dL (28-217)
[2025-07-11 14:28] LABS: Microalbum Creatinine Ratio Ur 71 mg/dL (0-20)
== END 2025-07-11 12:29 | disposition home or self-care (01) ==
PROVIDERS: PCP Family Medicine; Visit Provider Registered Nurse
DX: N18.4 Chronic kidney disease, stage 4 (severe) (principal); E87.6 Hypokalemia
CPT/HCPCS: 36415; 80069; 82044; 82310; 83970; 85025

== ENCOUNTER → 2025-08-03 11:29 | Outpatient (BNVA) | payer MEDICARE, OTHER, SELFPAY | PROVIDERS: PCP Family Medicine; Visit Provider Internal Medicine | DX: E11.9 Type 2 diabetes mellitus without complications (principal); I25.10 Atherosclerotic heart disease of native coronary artery without angina pectoris; E78.2 Mixed hyperlipidemia; Z79.4 Long term (current) use of insulin | CPT/HCPCS: 99214 ==

== ENCOUNTER 2025-08-23 11:32 | Outpatient (CLI) | payer MEDICARE, OTHER, SELFPAY ==
--- NOTE | 2025-08-23 11:40 | MM_ITS ---
WS: [id number] BILATERAL SCREENING DIGITAL TOMOSYNTHESIS MAMMOGRAM WITH CAD HISTORY: ANNUAL SCREENING COMPARISON: 10/06/2023, 05/18/2016 Bilateral CC and MLO views with tomosynthesis and synthetic mammography submitted. Computer aided detection analyzed. Breast composition: There are scattered areas of fibroglandular density. No suspicious masses, microcalcifications or architectural distortion. Benign calcifications in each breast. MM/MM scr BI tomosynthesis [id number] IMPRESSION: BI-RADS: 2 - Benign. FOLLOW UP: 1 Year Follow-up
== END 2025-08-23 11:33 | disposition home or self-care (01) ==
PROVIDERS: PCP Family Medicine; Visit Provider Family Medicine
DX: Z12.31 Encounter for screening mammogram for malignant neoplasm of breast (principal); R92.323 Mammographic fibroglandular density, bilateral breasts; R92.1 Mammographic calcification found on diagnostic imaging of breast
CPT/HCPCS: 77063; 77067

== ENCOUNTER 2025-09-10 10:42 | Emergency (ER) | payer MEDICARE, OTHER, SELFPAY ==
--- OUTSIDE RECORDS SUMMARY | 2024-11-27 04:30 | XMS_ITS ---
Author Organization [facility] Address [address] [place] [address] Care Team Providers Care [employer] Director Name Role Phone Casie Horvath Unavailable [phone] REASON FOR VISIT Was in hospital at [facility] with severe UTI Encounters Encounter Location Date Provider Diagnosis [facility] [address] [place] [address] 11/27/2024 Casie Horvath Plan Of Treatment No Information Progress Notes * Lolita ESPINOZADOB:1955 ( 70 yo F)Acc No.[id number]:11/27/2024 Progress Notes Patient: Lolita Balbuena Provider: NIXON Roth :1955 A ge:69 Y S ex:Female Date:11/27/2024 Address:[address] [place], [place] [id number] Subjective: * Chief Complaints: * W as in hospital at [facility] with severe UTI * Electronic signature of NIXON Bonner on 09/10/2025 at 11:11 AM CDT Sign off status: Pending * Provider: NIXON Roth Date: Generated for Mile mera/Christo/Baritting on: 11:11 AM CDT
[2025-09-10] VITALS (8 sets, daily range): BP systolic 144–183; BP diastolic 64–93; PULSE 112–141; RESP 16–18; TEMP 36.7–38.6; O2SAT 93–99; BMI 26.4
--- NOTE | 2025-09-10 10:58 | W.ED.GENADLT ---
HPI - General Adult General: Chief complaint: Weakness Stated complaint: all over weakness, lower back pain Time Seen by Provider: 09/10/25 10:47 History of Present Illness: 70-year-old female presents emergency room complaining of generally not feeling well last couple of days getting progressively worse she has been a little bit confused she is complaining of low back pain all over weakness. She has had several presentations like this in the past and when she was found to have acute kidney injury and pyelonephritis with sepsis. She denies any chest pain she does have some moderate abdominal pain particularly in the right upper quadrant. She denies dysuria urgency or frequency, no hematuria. She denies any diarrhea. No hematemesis coffee-ground emesis hematochezia or melena. Associated symptoms: Deny chest pain, dyspnea or rash Related Data Home Medications ?Medication ?Instructions ?Recorded ?Confirmed montelukast 10 mg tablet 10 mg PO QAM 05/07/20 09/10/25 (Singulair) omeprazole 40 mg capsule,delayed 40 mg PO QAM 05/07/20 09/10/25 release rosuvastatin 40 mg tablet 40 mg PO QPM 01/20/24 09/10/25 clopidogrel 75 mg tablet 75 mg PO DAILY 05/10/24 09/10/25 amlodipine 10 mg tablet 10 mg PO DAILY 05/23/25 09/10/25 gabapentin 800 mg tablet 800 mg PO QID 05/23/25 09/10/25 insulin pump cart,auto,BT,G6/7 #5 ea 05/23/25 09/10/25 (Omnipod 5 G6-G7 Pods (Gen 5) subcutaneous cartridge) insulin pump cartridge,auto #1 ea 05/23/25 09/10/25 dose,BT,G6/G7 with controller subcutaneous (Omnipod 5 G6-G7 Intro Kit(Gen 5) subcutaneous cartridge and controller) ropinirole 0.5 mg tablet 0.25 mg PO BEDTIME 05/23/25 09/10/25 calcitriol 0.25 mcg capsule 0.25 mcg PO .3XWEEKLY 09/10/25 09/10/25 estradiol 0.01% (0.1 mg/gram) See Rx Instructions .Route .COMPLEX 09/10/25 09/10/25 vaginal cream lisinopril 20 mg tablet 20 mg PO QAM 09/10/25 09/10/25 metoprolol tartrate 25 mg tablet 12.5 mg PO BID 09/10/25 09/10/25 potassium chloride 10 mEq 20 meq PO BID 09/10/25 09/10/25 capsule,extended release Previous Rx's ?Medication ?Instructions ?Recorded insulin aspart U-100 100 unit/mL See Rx Instructions .Route 02/07/24 (3 mL) subcutaneous pen (Novolog .COMPLEX PRN Hyperglycemia #15 mL FlexPen U-100 Insulin aspart) Allergies Allergy/AdvReac Type Severity Reaction Status Date / Time oak Allergy Mild ALGY-Nasal Verified 05/23/25 12:00 Discharge Penicillins Allergy ALGY-Rash Verified 05/23/25 12:00 Review of Systems Const: Denies: fever(s) or chills Card: Denies: chest pain Resp: Denies: dyspnea GI: Denies: abdominal pain : Denies: dysuria, urinary frequency or urinary urgency Musc: Denies: neck pain or back pain Skin/Breast: Denies: rash PFSH ED PFSH: Medical History GI bleed Cholecystitis Lumbar disc disease with radiculopathy Lumbar stenosis with neurogenic claudication Acute metabolic encephalopathy Posterior tibial tendinitis of right leg Right ankle pain Right hemisphere, cerebral infarction Closed right trimalleolar fracture Degenerative joint disease of spine GERD (gastroesophageal reflux disease) Tobacco abuse Essential hypertension COPD (chronic obstructive pulmonary disease) Myocardial infarction ASHD (arteriosclerotic heart disease) Dyslipidemia Diabetes 1.5, managed as type 2 Surgical History History of hand surgery Joint replacements both hands Status post tubal ligation Status post ORIF of fracture of ankle S/P PTCA (percutaneous transluminal coronary angioplasty) Family History Father Lung cancer Mother Heart attack Sister Cancer COVID-19 Other CAD (coronary artery disease) Diabetes Social History Smoking and tobacco/nicotine status: never used tobacco/nicotine Alcohol intake: current Alcohol intake frequency: holidays/special occasions only Substance/Drug Use: never Physical Exam Const: GENERAL APPEARANCE: cooperative ORIENTATION/CONSCIOUSNESS: Yes awake and Yes confused HENMT: COMMON NORMALS: normocephalic, atraumatic and hearing grossly normal bilaterally HEAD & SCALP: normocephalic and atraumatic Resp: COMMON NORMALS: normal respiratory effort, No retractions, No use of accessory muscles and clear to auscultation bilaterally AUSCULTATION: clear to auscultation bilaterally Cardio: COMMON NORMALS: regular rhythm and No murmurs present (Cardio) RATE: tachycardic RHYTHM: regular rhythm GI: COMMON NORMALS: Soft to palpation and No hepatosplenomegaly present AUSCULTATION: Yes normoactive bowel sounds PALPATION: Yes Soft to palpation, No Tenderness to palpation present (GI), No Guarding due to palpation present (GI) and Yes No hepatosplenomegaly present Extremity: COMMON NORMALS: normal to inspection, capillary refill normal, no clubbing, cyanosis or edema, no calf tenderness and no pedal edema Skin: COMMON NORMALS: no rashes or lesions noted GENERAL SKIN EXAM: no rashes or lesions noted Course Vital Signs: Vital signs: Vital Signs Temperature 98.1 F 09/10/25 10:47 Pulse Rate 123 H 09/10/25 15:08 Respiratory Rate 16 09/10/25 15:08 Blood Pressure 173/77 09/10/25 15:08 Pulse Oximetry 97 09/10/25 15:08 Oxygen Delivery Me thod Room Air 09/10/25 15:08 MDM - General Adult Medical Decision Making Patient initially seen evaluated she has mild to moderately altered sepsis evaluation initiated. Concerns for cystitis pyelonephritis nephrolithiasis bowel obstruction acute cholecystitis or possible pneumonia. Patient presents altered she has presented like this multiple times in the past on lab work she does indeed have sepsis white count of 25,000 acute kidney injury with hyperkalemia. Her hyperkalemia was treated she is given a sepsis fluid bolus cultures were done and she was started on meropenem. As suspected she does have cystitis as a source of her sepsis. CT urinary system that shows what appears to be an obstruction mid ureter on the right although there is no stone there concern for debris or tumor. I initially had planned on admitting to Dr. Monroy and we had discussed that even written orders however when the CT resulted with the finding different from the past we change plans to refer to [facility] so the patient have availability of urology. She likely will need a stent. Discussed Dr. Monroy she agrees. Also reviewed with the family. Repeat BMP is pending is her lactate has improved. Scheduled antibiotics and maintenance fluids were waiting on a room number for transfer. Medical Records I reviewed the patient's medical records. Lab Data I reviewed the patient's lab results. 09/10/25 11:18 09/10/25 11:18 Radiology Impressions Chest X-Ray 09/10/25 11:33 IMPRESSION: No acute chest abnormality. Abdomen/Pelvis CT 09/10/25 11:45 IMPRESSION: 1. Moderate RIGHT hydroureteronephrosis. RIGHT ureter is markedly dilated with periureteral stranding into the pelvis. The distal RIGHT ureter is not dilated. No high density focus in the ureter identified. Cause of the obstruction is not apparent. This obstruction may be due to a recently passed ureteral stone, stricture, inflammation or neoplasm. 2. Significant amount of perinephric stranding in the retroperitoneum surrounding the RIGHT kidney with fluid extending along the pararenal fascia. 3. Appendix is not identified. 4. No renal calcification identified within either kidney. Laboratory Results WBC 25.21 10^3/uL (3.29-11.43) H 09/10/25 11:18 RBC 4.20 10^6/uL (3.85-5.65) 09/10/25 11:18 Hgb 13.40 g/dL (11.27-16.99) 09/10/25 11:18 Hct 41.2 % (36-47) 09/10/25 11:18 MCV 98.1 fl (85-98) H 09/10/25 11:18 MCH 31.9 pg (27-33) 09/10/25 11:18 MCHC 32.5 g/dL (30-55) 09/10/25 11:18 RDW 14.7 % (12.1-15.1) 09/10/25 11:18 Plt Count 214 10^3/cmm (157-399) 09/10/25 11:18 MPV 12.3 fL (7.4-10.4) H 09/10/25 11:18 Neut % (Auto) 88.9 % 09/10/25 11:18 Lymph % (Auto) 5.9 % 09/10/25 11:18 [place] % (Auto) 3.7 % 09/10/25 11:18 Eos % (Auto) 0.2 % 09/10/25 11:18 Baso % (Auto) 0.3 % 09/10/25 11:18 Neut # (Auto) 22.41 10^3/uL (1.8-7.7) H 09/10/25 11:18 Lymph # (Auto) 1.5 10^3/uL (0.8-4.8) 09/10/25 11:18 [place] # (Auto) 0.9 10^3/uL (0.2-0.9) 09/10/25 11:18 Eos # (Auto) 0.1 10^3/uL (0.0-0.8) 09/10/25 11:18 Baso # (Auto) 0.1 10^3/uL (0.0-0.1) 09/10/25 11:18 Nucleated RBC % (auto) 0 % 09/10/25 11:18 Nucleated RBCs # 0.0 /100WBC 09/10/25 11:18 Sodium 136 mmol/L (136-145) 09/10/25 11:18 Potassium 5.8 mmol/L (3.5-5.1) H 09/10/25 11:18 Chloride 100 mmol/L (98-107) 09/10/25 11:18 Carbon Dioxide 14 mmol/L (22-29) L 09/10/25 11:18 Anion Gap 27.8 (5-19) H 09/10/25 11:18 BUN 50 mg/dL (8-23) H 09/10/25 11:18 Creatinine 3.5 mg/dL (0.5-0.9) H 09/10/25 11:18 GFR Calculation 12.9 mL/min (90-130) L 09/10/25 11:18 Glucose 272 mg/dL (65-115) H 09/10/25 11:18 Calculated Osmolality 305 mOsm/kg (285-295) H 09/10/25 11:18 Lactic Acid 5.3 mmol/L (0.5-2.2) H* 09/10/25 11:18 Lactic Acid (Sepsis) 4.5 mmol/L (0.5-2.2) H* 09/10/25 13:57 Calcium 10.3 mg/dL (8.5-10.5) 09/10/25 11:18 Magnesium 2.0 mg/dL (1.7-2.3) 09/10/25 11:18 Total Bilirubin 1.0 mg/dL (0.15-1.2) 09/10/25 11:18 AST 14 U/L (0-32) 09/10/25 11:18 ALT 13 U/L (0-33) 09/10/25 11:18 Alkaline Phosphatase 95 U/L (35-105) 09/10/25 11:18 Creatine Kinase 381 U/L (26-192) H* 09/10/25 11:18 Total Protein 8.4 g/dL (6.6-8.7) 09/10/25 11:18 Albumin 4.6 g/dL (3.5-5.2) 09/10/25 11:18 Globulin 3.8 g/dL (1.3-4.6) 09/10/25 11:18 Lipase 14 U/L (13-60) 09/10/25 11:18 Urine Color Yellow (Yellow) 09/10/25 12:11 Urine Appearance Turbid (CLEAR) A 09/10/25 12:11 Urine pH 7.0 (5-7) 09/10/25 12:11 Ur Specific [place] 1.018 (1.005-1.030) 09/10/25 12:11 Urine Protein 2+ (Negative) A 09/10/25 12:11 Urine Glucose (UA) Trace (Normal) H 09/10/25 12:11 Urine Ketones Negative (Negative) 09/10/25 12:11 Urine Blood 2+ (Negative) A 09/10/25 12:11 Urine Nitrate Negative (Negative) 09/10/25 12:11 Urine Bilirubin Negative (Negative) 09/10/25 12:11 Urine Urobilinogen 1.0 mg/dL (Negative) 09/10/25 12:11 Ur Leukocyte Esterase 3+ (Negative) A 09/10/25 12:11 Urine RBC 5-10 /hpf (0-2) H 09/10/25 12:11 Urine WBC >100 /hpf (0-5) H 09/10/25 12:11 Ur Squamous Epith Cells 5-10 /hpf (0-5) H 09/10/25 12:11 Amorphous Sediment Not Reportable 09/10/25 12:11 Urine Bacteria Trace /hpf (NONE) 09/10/25 12:11 Urine Mucus None /hpf 09/10/25 12:11 All radiology interpretation(s) finalized by discharge EKG Data EKG 1: I personally reviewed and interpreted this EKG as follows: EKG interpretation date: 09/10/25 Prior EKG tracings: available for review Interpretation: EKG 09/10/2025 1622 sinus tachycardia. MO interval 130 QTc 322 rate of [address] elevation. There is some lateral ST depression. Rate related. Patient not having chest pain at this time. Similar ST depression noted on EKG on 03/29/2025. Computer generated interpretation: Chest X-Ray 09/10/25 11:33 IMPRESSION: No acute chest abnormality. Abdomen/Pelvis CT 09/10/25 11:45 IMPRESSION: 1. Moderate RIGHT hydroureteronephrosis. RIGHT ureter is markedly dilated with periureteral stranding into the pelvis. The distal RIGHT ureter is not dilated. No high density focus in the ureter identified. Cause of the obstruction is not apparent. This obstruction may be due to a recently passed ureteral stone, stricture, inflammation or neoplasm. 2. Significant amount of perinephric stranding in the retroperitoneum surrounding the RIGHT kidney with fluid extending along the pararenal fascia. 3. Appendix is not identified. 4. No renal calcification identified within either kidney. Discharge Plan Discharge Patient Disposition: Xfer Short-Term Hosp Clinical Impression: Sepsis, Acute kidney injury, Acute hyperkalemia, Diabetes 1.5, managed as type 2, Cystitis Condition: Stable Referrals: Dhruv Zapata MD [Primary Care Provider, [facility]] Print Language: Sinhala Coding Level of Care Code ED Organ Grinder for Chg Fwd
--- OUTSIDE RECORDS SUMMARY | 2025-09-10 11:11 | XMS_ITS | Clinical Summary ---
Author Organization [facility] Address [address] [facility] Attn: Epic Prelude ADT [place] NE[place] [id number] Care Team Providers Care Team Otr Truck Driver Name Role Phone Moses Ferrera MD Primary Care Provider Unava ilable Allergies Active Allergy Reactions Criticality Noted Date Comments Penicillin G Rash Low 09/07/2012 Active Problems Problem Noted Date Diagnosed Date Trigger finger (acquired) 01/18/2013 Resolved Problems Problem Noted Date Diagnosed Date Resolved Date Osteoarthritis of basilar joint of thumb 12/06/2012 12/27/2013 Carpal tunnel syndrome 09/07/201212/27 Family History Medical History Relation Name Comments Lung Cancer Father Heart Disease Mother Relation Name Status Comments Father Mother Social History Tobacco Use Types Packs/Day Years Used Date Smoking Tobacco: Every Day Smokeless Tobacco: Never Comments:Quit smoking: pt tr hawa to quit smokes one or two a day. 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 DIRECTOR OF PHARMACY Gender Identity Not on file Sexual Orientation Not on file Plan of Treatment Health Maintenance Due Date Last Done Comments DTAP/TDAP/TD VACCINES (1 - Tdap) 1974 BREAST CANCER SCREENING 1995 COLORECTAL SCREENING 2000 Colorectal Cancer Screening 2000 FIT-DNA Q 3 years 2000 FIT/FOBT Q 1 year 2000 Flex Sig/CT Colonography Q 5 years 2000 PNEUMOCOCCAL VACCINE 50+ YEARS (1 of 1 - PCV) 03/22/20 05 ZOSTER VACCINE (1 of 2) 2005 OSTEOPOROSIS SCREENING 2020 INFLUENZA VACCINE (#1) 2025 RSV VACCINE (60+ or ) (1 - 1-dose 75+ series) 2030 Care Teams Team Otr Truck Driver Relationship Specialty Start Date End Date Moses Ferrera MD NO ADDRESS ON FILE PCP - General Paint Tester 11/17/12
--- OUTSIDE RECORDS SUMMARY | 2025-09-10 11:11 | XMS_ITS | Clinical Summary ---
Author Organization [facility] tone Address [address] [facility] [address] Care Team Providers Care Divisional Merchandising Manager Name Role Phone Moses Ferrera MD Primary Care Provider Unava ilable Allergies Active Allergy Reactions Criticality Noted Date Comments Penicillin G Rash Low 09/07/2012 Medications omeprazole (PRILOSEC) 40 mg Oral CpDR Take 40 mg by mouth daily early childhood lead teacher. Active hydrochlorothiaz hayden 25 mg Oral tablet Take 25 mg by mouth daily. Active atorvastatin (LIPITOR) 20 mg Oral tablet Take 20 mg by mouth daily. Active meloxicam (MOBIC) 15 mg Oral tablet Take 15 mg by mouth daily. Active amLODIPine (NORVASC) 10 mg Oral tablet Take 10 mg by mouth daily early childhood lead teacher. Active labetalol (NORMODYNE) 300 mg Oral tablet Take 300 mg by mouth 2 times daily. Active gabapentin (NEURONTIN) 300 mg Oral tablet Take 300 mg by mouth 2 times daily. Active gabapentin (NEURONTIN) 600 mg Oral tablet Take 600 mg by mouth daily at bedtime. Active traMADol (ULTRAM) 50 mg Oral tablet Take 1-2 Tabs by mouth every 6 hours as needed for Pain. 30 Tab 0 02/15/2013 Active HYDROcodone-acet aminophen (NORCO) 7.5-325 mg Tablet Take 1-2 Tabs by mouth every 4 hours as needed for Pain, Mild. 20 Tab 0 01/18/2014 Active Active Problems Problem Noted Date Diagnosed Date [...] Years Used Date Smoking Tobacco: Every Day Cigarettes Smokeless Tobacco: Never Comments:pt trying to quit s mokes one or two a day. 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 PROJECT LEADER/TEAM LEAD Gender Identity Not on file Sexual Orientation Not on file Occupation Industry Job Start Date Job End Date Not on file Not on file Not on file Not on file Last Filed Vital Signs Vital Sign Reading Time Taken Comments Blood Pressure 185/68 04/02/2014 1:00 PM CDT Pulse 80 04/02/2014 1:00 PM CDT Temperature 37.1 C (98.8 F) 01/18/2014 1:00 PM SENIOR PROJECT LEADER/TEAM LEAD Respiratory Rate 16 01/18/2014 1:00 PM SENIOR PROJECT LEADER/TEAM LEAD Oxygen Saturation 93% 01/18/2014 1:00 PM SENIOR PROJECT LEADER/TEAM LEAD Inhaled Oxygen Concentration - - Weight 69.9 kg (154 lb) 04/02/2014 1:00 PM CDT Height 154.9 cm (5' 1 ) 04/02/2014 1:00 PM CDT Body Mass Index 29.1 04/02/2014 1:00 PM CDT Plan of Treatment Health Maintenance Due Date Last Done Comments DTAP/TDAP/TD VACCINES (1 - Tdap) 1974 PNEUMOCOCCAL VACCINE 50+ YEARS (1 of 2 - PCV) 03/22/19 74 BREAST CANCER SCREENING 1995 COLORECTAL SCREENING 2000 Colorectal Cancer Screening 2000 FIT-DNA Q 3 years 2000 FIT/FOBT Q 1 year 2000 Flex Sig/CT Colonography Q 5 years 2000 ZOSTER VACCINE (1 of 2) 2005 OSTEOPOROSIS SCREENING 2020 INFLUENZA VACCINE (#1) 2025 RSV VACCINE (60+ or ) (1 - 1-dose 75+ series) 2030 Insurance [employer] Advance Directives For more information, please contact: [phone] * Full Code (Latest Code Status on File) Date Activated Date Inactivated Comments 01/18/2014 10:05 AM 01/18/2014 3:48 PM * Full Code Date Activated Date Inactivated Comments 11/24/2012 1:03 PM 11/25/2012 2:01 AM * Full Code Date Activated Date Inactivated Comments 11/24/2012 1:02 PM 11/24/2012 1:03 PM Care Teams Divisional Merchandising Manager Relationship Specialty Start Date End Date Moses Ferrera MD PCP - General Financial Processing Clerk 11/17/12
--- OUTSIDE RECORDS SUMMARY | 2025-09-10 11:12 | XMS_ITS | Clinical Summary ---
Author Organization [facility] 8hands, [facility] Address [address] [place] [address] Phone Care Team Providers Care Coagulant Dipper Name Role Phone Dhruv Zapata MD Primary Care Provider [phone] Allergies Active Allergy Reactions Criticality Noted Date Comments Metformin Other (see comments) High 06/06/2025 Lactic Acidosis Penicillins Hives 06/06/2025 Medications calcitriol (Rocaltrol) 0.25 MCG capsuleIndications:Seco ndary hyperparathyroidism of renal origin (HCC) Take 1 capsule (0.25 mcg total) by mouth 3 times weekly: Wed, and Wed in the evening. 12 capsule 11 06/06/20 25 026 Active lisinopril 10 MG tablet Take 10 mg by mouth 1 (one) time each day Active metoprolol tartrate 25 MG tablet Take 25 mg by mouth in the morning and 25 mg in the evening. Active omeprazole (PriLOSEC) [address] capsule Take 40 mg by mouth 1 (one) time each day Do not crush or chew. Active rOPINIRole (REQUIP) 0.25 MG tablet Take 0.25 mg by mouth every night Active montelukast (SINGULAIR) 10 MG tablet Take 10 mg by mouth 1 (one) time each day Active insulin degludec (Tresiba FlexTouch) 200 UNIT/ML injection Inject 4 Units under the skin 1 (one) time each day 05/03/20 25 Active NovoLOG FLEXPEN 100 UNIT/ML injection Inject under the skin Sliding scale 03/16/20 25 Active gabapentin (NEURONTIN) 800 MG tablet Take 800 mg by mouth in the morning and 800 mg at noon and 800 mg in the evening and 800 mg before bedtime. Active clopidogrel (PLAVIX) 75 MG tablet Take 75 mg by mouth 1 (one) time each day 03/13/20 Active citalopram (CeleXA) 10 MG tablet Take 10 mg by mouth 1 (one) time each day Active budesonide-formoterol (Symbicort) 160-4.5 MCG/ACT inhaler Inhale 1 puff 2 (two) times a day if needed 03/13/20 Active atorvastatin (LIPITOR) 20 MG tablet Take 20 mg by mouth in the morning. Active aspirin (ST AMARIS) 81 MG EC tablet Take 81 mg by mouth 1 (one) time each day Active amLODIPine (NORVASC) 10 MG tablet Take 10 mg by mouth 1 (one) time each day ONCE DAILY FOR 30 DAYS 03/16/20 Active potassium chloride (MICRO-K) 10 MEQ CR capsuleIndications:Hypo kalemia Take 2 capsules (20 mEq total) by mouth in the morning and 2 capsules (20 mEq total) in the evening. Do not crush or chew. 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 inj ectable non-insulin antidiabetic drug 03/14/2025 Hypertensive chronic kidney disease with stage 1 through stage 4 chronic kidney disease, or unspecified chronic kidney disease 03/14/2025 Hyperlipidemia 03/14/2025 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 03/14/2025 Acute renal failure on dialysis 03/14/2025 Steatotic liver disease 03/12/2025 Overview (06/06/2025): with heptaomegaly Cerebral ischemic stroke due to global hypoperfusion with watershed infarct 03/12/2025 Overview (06/06/2025): hx of Rhabdomyolysis 02/07/2024 Restless legs 02/07/2024 Neuropathy 02/07/2024 Major depression, single episode 02/07/2024 Leukocytosis 02/07/2024 Cerebrovascular disease 02/07/2024 Intra-renal acute kidney injury 02/07/2024 Type 2 diabetes mellitus 08/11/2023 Essential hypertension 08/11/2023 Gastro-esophageal reflux disease without esophag itis 05/05/2023 Tobacco use disorder 09/28/2022 Chronic obstructive pulmonary disease 09/28/2022 Encounters Date Type Department Care Team Description 07/12/2025 Results Follow-Up [facility], [facility] [address] [place] [phone] Rosa Woods 07/11/2025 Documentation Only [facility], [facility] [address] [place] [phone] Susana Hodge MA 07/10/[address] [facility], [facility] [address] [place] [phone] Cara King MA 07/10/2025 Orders Only [facility], [facility] [address] [place] [address] Cara King MA Secondary hyperparathyroidism of renal origin (HCC) (Primary Dx); Chronic kidney disease stage 4 (HCC); Hypokalemia 07/10/2025 Documentation [facility], [address] [phone] Rosa Woods 07/06/[address] [facility], [address] [phone] Isabelle Reina NP 07/05/2025 1:00 PM CDT Office Visit [facility], [address] [phone] Isabelle Reina NP Chronic kidney disease stage 4 (HCC) (Primary Dx); Vitamin D deficiency, not otherwise specified; Hypokalemia; Type 2 diabetes mellitus with other specified complication (HCC) 07/04/2025 Documentation Only [facility], [facility] [address] [place] [address] [place] [phone] Cara King MA 07/04/2025 Documentation Only [facility], [facility] [address] [facility] [address] [place] [address] [place] [phone] Activities AideCara MA 07/04/2025 Documentation Only [facility], [facility] [address] [facility] [address] [place] [address] [place] [phone] Cara King MA 07/03/[address] [facility], [facility] [address] [facility] [address] [place] [address] [place] [phone] Cara King MA 06/28/[address] [facility], [place] [phone] [facility] [address] [address] [phone] Helen Guillen MD from Last 3 Months Family History Medical History Relation Comments Cancer Father Cancer Mother Heart disease Mother Hypertension Mother Stroke Mother Relation Status Comments Father Mother Social History Tobacco Use Types Packs/Day Years Used Date Smoking Tobacco: Former Cigarettes Q uit: 03/18/2025 Smokeless Tobacco: Never Alcohol Use Standard Drinks/Week Comments Not Currently 0 (1 standard drink = 0.6 oz pur e alcohol) Comments Unknown Sex and Gender Information Value Date Recorded Sex Assigned at Not on file Legal Sex Female 1:16 PM EDT Gender Identity Female 07/05/2025 2:04 PM EDT Sexual Orientation Not on file Last Filed Vital Signs Vital Sign Reading Time Taken Comments Blood Pressure 162/84 07/05/2025 1:18 PM CDT Pulse 90 07/05/2025 1:18 PM CDT Temperature 36.2 C (97.2 F) 06/06/2025 10:33 AM CDT Respiratory Rate 14 06/06/2025 10:33 AM CDT Oxygen Saturation 98% 07/05/2025 1:18 PM CDT Inhaled Oxygen Concentration - - Weight 56.3 kg (124 lb 3.2 oz) 07/05/2025 1:18 P M CDT Height 154.9 cm (5' 1 ) 07/05/2025 1:18 PM CDT Body Mass Index 23.47 07/05/2025 1:18 PM CDT Plan of Treatment Upcoming Encounters Date Type Department Care Team (Late st Contact Info) Description 10/02/2025 10:00 AM ADMINISTRATIVE ASSOCIATE Office Visit [facility] [address] [place] [phone] Helen Guillen MD [address] [facility] [address] [facility] [address] [place] [phone] Health Maintenance Due Date Last Done Comments Breast Cancer Screening 1955 Colorectal Cancer Screening: Annual FOBT 2004 Colorectal Cancer Screening: Colonoscopy 2004 Colorectal Cancer Screening: Sigmoidoscopy 2004 Hepatitis B Vaccine (1 of 3 - Risk 3-dose series) 02/28 Pneumococcal Vaccine: 50+ Ye ars (2 of 2 - PPSV23, PCV20, or PCV21) 01/16/2022 11/21/2021 Diabetes: Ophthalmology Exam 03/21/2025 Diabetes: Pedal Pulse Checked 03/21/2025 Diabetes: Sensory Foot Exam 03/21/2025 Diabetes: Visual Foot Exam 03/21/2025 Influenza Vaccine (#1) 2025 Diabetes: Hemoglobin A1C 08/23/2025 05/23/2025 Procedures Procedure Name Priority Date/Time Associated Diagnosis Comments PROTEIN / CREATININE RATIO, URINE Routine 07/11/2025 Secondary hyperparathyroidism of renal origin (HCC) Chronic kidney disease stage 4 (HCC) Hypokalemia PTH, INTACT Routine 07/11/2025 Secondary hyperparathyroidism of renal origin (HCC) Chronic kidney disease stage 4 (HCC) Hypokalemia RENAL FUNCTION PANEL Routine 07/11/2025 Secondary hyperparathyroidism of renal origin (HCC) Chronic kidney disease stage 4 (HCC) Hypokalemia CBC Routine 07/11/2025 Secondary hyperparathyroidism of renal origin (HCC) Chronic kidney disease stage 4 (HCC) Hypokalemia CBC (INCLUDES DIFF/PLT) (EXTERNAL LAB ENTRY) Routine 06/29/2025 ALBUMIN/CREATININE, RANDOM URINE (EXTERNAL RESULT ENTRY) Routine 06/29/2025 COMPREHENSIVE METABOLIC PANEL (CMP) (EXTERNAL LAB ENTRY) Routine 06/29/2025 SPECIAL CHEMISTRY Routine 05/23/2025 from Last 3 Months or Most Recently Relevant to Health Maintenance Results * Protein, Total, Random Urine w/Creatinine (Protein/Creat Ratio) (07/11/2025) Pathologist [facility] Creatinine, Urine Random 98 mg/dL PRINT/EXTERNAL (NON-INTERFACE D LABS) Alb/Creat Ratio, Ur 71.00 mg/g Creat PRINT/EXTERNAL (NON-INTERFACE D LABS) Albumin, Urine 7 PRINT /EXTERNAL (NON-INTERFACE D LABS) Urine Urine specimen obtained by clean catch procedure / Unknown 07/11/2025 Narrative PRINT/EXTERNAL (NON-INTERFACED LABS) - 07/11/2025 [place] [address] Isabelle Reina PRINTING MACHINE OPERATOR LAB URINE ORDERABLES Jessica l Result PRINT/EXTERNAL (NON-INTERFACED LABS) * CBC (07/11/2025) Pathologist [facility] WBC 10.27 K/uL PRINT/EXTE RNAL (NON-INTERFACE D LABS) Red Blood Cell Count 4.18 PRINT/EXTERNAL (NON-INTERFACE D LABS) Hemoglobin 12.90 g/dL PRINT/EXT ERNAL (NON-INTERFACE D LABS) Hematocrit 37.8 % PRINT/EXT ERNAL (NON-INTERFACE D LABS) MCV 90.4 PRINT/EXTE RNAL (NON-INTERFACE D LABS) MCH 30.9 PRINT/EXTE RNAL (NON-INTERFACE D LABS) MCHC 34.1 PRINT/EXTE RNAL (NON-INTERFACE D LABS) RDW 13.0 PRINT/EXTE RNAL (NON-INTERFACE D LABS) Platelet Count 193 PRINT /EXTERNAL (NON-INTERFACE D LABS) MPV 13.0 PRINT/EXTE RNAL (NON-INTERFACE D LABS) Absolute Neutrophils 6.71 PRINT/EXTERNAL (NON-INTERFACE D LABS) Absolute Lymphocytes 2.7 PRINT/EXTERNAL (NON-INTERFACE D LABS) Absolute Monocytes 0.4 PRINT/EXTERNAL (NON-INTERFACE D LABS) Absolute Eosinophils 0.3 PRINT/EXTERNAL (NON-INTERFACE D LABS) Absolute Basophils 0.2 PRINT/EXTERNAL (NON-INTERFACE D LABS) Neutrophils 65.3 K/uL PRINT/EX TERNAL (NON-INTERFACE D LABS) Lymphocytes 25.8 PRINT/EX TERNAL (NON-INTERFACE D LABS) Monocytes 4.1 PRINT/EXTE RNAL (NON-INTERFACE D LABS) Eosinophils 2.9 PRINT/EX TERNAL (NON-INTERFACE D LABS) Basophils 1.6 PRINT/EXTE RNAL (NON-INTERFACE D LABS) Blood Venous blood / Unknown 07/11/2025 Narrative PRINT/EXTERNAL (NON-INTERFACED LABS) - 07/11/2025 [place] [address] Isabelle Reian NP LAB BLOOD ORDERABLES Jessica l Result Performing Organization Address [facility] de Phone Number PRINT/EXTERNAL (NON-INTERFACED LABS) * PTH, Intact (07/11/2025) Parathyroid Hormone, Intact 38.2 pg/mL PRINT/LOGISTICS ADMINISTRATOR AL (NON-INTERFACE D LABS) Blood Venous blood / Unknown 07/11/2025 Narrative PRINT/EXTERNAL (NON-INTERFACED LABS) - 07/11/[address] [address] Isabelle Reina PRINTING MACHINE OPERATOR LAB BLOOD ORDERABLES Jessica l Result Performing Organization Address [facility] de Phone Number PRINT/EXTERNAL (NON-INTERFACED LABS) * Renal Function Panel (07/11/2025) Glucose 304 mg/dL PRINT/EXTE RNAL (NON-INTERFACE D LABS) BUN 22 mg/dL PRINT/EXTE RNAL (NON-INTERFACE D LABS) Creatinine 1.9 mg/dL PRINT/EXT ERNAL (NON-INTERFACE D LABS) Sodium 133 mEq/L PRINT/EXTE RNAL (NON-INTERFACE D LABS) Potassium 4.0 mEq/L PRINT/EXTE RNAL (NON-INTERFACE D LABS) Chloride 101 PRINT/EXTE RNAL (NON-INTERFACE D LABS) Carbon Dioxide 19 mmol/L PRINT /EXTERNAL (NON-INTERFACE D LABS) Calcium 9.9 mg/dL PRINT/EXTE RNAL (NON-INTERFACE D LABS) Phosphorus, Serum 4.0 mg/dL PRINT/EXTERNAL (NON-INTERFACE D LABS) Albumin (Blood) 4.4 g/dL PRIN T/EXTERNAL (NON-INTERFACE D LABS) eGFR Non-Afr Fijian 26.1 PRINT/EXTERNAL (NON-INTERFACE D LABS) Blood Venous blood / Unknown 07/11/2025 Narrative PRINT/EXTERNAL (NON-INTERFACED LABS) - 07/11/[address] [address] Isabelle Reina PRINTING MACHINE OPERATOR LAB BLOOD ORDERABLES Jessica l Result PRINT/EXTERNAL (NON-INTERFACED LABS) * Albumin/Creatinine in Urine (06/29/2025) Pathologist [facility] Creatinine, Urine Random 49 mg/dL Microalbumin Urine Random 3 ug/dl Microalb/Creat Ratio, Ur 61 mg/dl Urine Urine specimen / Unknown 06/29/2025 Narrative Cara King MA - 07/04/2025 2:12 PM CDT [facility] Clinical Laboratory [address] [place] [id number] [address] Lissy Corona, Dispatcher [employer] us Helen Guillen MD LAB URINE ORDERABLES Final Re sult * Comprehensive Metabolic Panel (CMP) (06/29/2025) Glucose 530 mg/dL BUN 16 mg/dL Creatinine 2.0 mg/dL Sodium 132 mEq/L Potassium 2.9 mEq/L Chloride 95 Carbon Dioxide 22 mmol/L Calcium 8.7 mg/dL Albumin (Blood) 4.2 g/dL AST (SGOT) 35 U/L ALT (SGPT) 25 U/L Total Bilirubin 0.60 MG/DL eGFR 24.6 Total Protein, Serum 6.9 Anion Gap 17.9 Globulin, Total 2.7 g/dL Blood 06/29/2025 us Helen Guillen MD LAB BLOOD ORDERABLES Final Re sult * CBC (Includes Diff/Plt) (External Lab) (06/29/2025) Pathologist [facility] WBC 8.22 K/uL Red Blood Cell Count 3.64 Hemoglobin 11.50 g/dL Hematocrit 32.8 % MCV 90.1 MCH 31.6 MCHC 35.1 RDW 13.6 Platelet Count 155 MPV 12.6 Absolute Neutrophils 5.29 Absolute Lymphocytes 1.9 Absolute Monocytes 0.4 Absolute Eosinophils 0.4 Absolute Basophils 0.1 Neutrophils 64.4 K/uL Lymphocytes 23.6 Monocytes 5.2 Eosinophils 5.1 Basophils 1.5 Blood 06/29/2025 us Helen Guillen MD LAB BLOOD ORDERABLES Final Re sult * (ABNORMAL) SPECIAL CHEMISTRY (05/23/2025) Pathologist [facility] Hemoglobin A1C 7.4(H) 4.8 - 5.9 % NaHere 05/23/2025 05/24/2025 8:5 3 AM CDT Narrative [facility] - 05/24/2025 Unless otherwise specified, test(s) performed at: [facility], [address] [place] [id number] [employer]: Antony Stewart M.D. For any questions, please call customer service at FREQUENCY:OTHER Resulting Agency Comment Specimen source: Blood us Helen Guillen MD LAB BLOOD BANK TEST ORDERABLE S Final Result [facility] See order comments or contact performing lab Unknown, [place] from Last 3 Months or Most Recently Relevant to Health Maintenance Insurance Medicare [facility] Care Teams Coagulant Dipper Relationship Specialty Start Date End Date Dhruv Zapata MD [address] [place] [address] PCP - General Family Medicine 07/05/25
[2025-09-10 11:27] LABS: Hematocrit 41.2 % (36-47); Hemoglobin 13.40 g/dL (11.27-16.99); Mean Corpuscular HGB Conc 32.5 g/dL (30-55); Mean Corpuscular Hemoglobin 31.9 pg (27-33); Mean Corpuscular Volume 98.1 fl (85-98); Nucleated Red Blood Cells % 0 %; Platelet Count 214 10^3/cmm (157-399); Red Blood Count 4.20 10^6/uL (3.85-5.65); White Blood Count 25.21 10^3/uL (3.29-11.43)
--- NOTE | 2025-09-10 11:33 | XR_ITS ---
WS: [id number] XR chest 1V portable [id number] REASON FOR EXAM: dyspnea/cough FINDINGS: Mild tortuosity of the aortic arch and thoracic aorta calcification of the aortic arch. The heart is not enlarged. Calcified granulomatous disease in both hemithoraces. No acute pulmonary parenchymal or pleural abnormality. XR/XR chest 1V portable [id number] IMPRESSION: No acute chest abnormality.
--- NOTE | 2025-09-10 11:45 | CT_ITS ---
WS: [id number] CT ABDOMEN AND PELVIS NONCONTRAST HISTORY: flank pain, RIGHT TECHNIQUE: Imaging performed through the abdomen and pelvis. Coronal and sagittal reformats are submitted. All CT scans at [facility] use at least one of these dose optimization techniques: automated exposure control; mA and/or kV adjustment per patient size (includes targeted exams where dose is matched to clinical indication); or iterative reconstruction. DLP: 441.87 mGy.cm COMPARISON: 03/29/2025 Lower thorax: Small hiatal hernia. Otherwise negative. Liver: Normal size liver. No mass or bile duct dilatation. Gallbladder: Normal gallbladder. No pericholecystic fluid or cholelithiasis. No gallbladder wall thickening. Pancreas: Normal size and attenuation. Normal pancreatic duct. No pancreatitis or mass. Spleen: Normal. Adrenal glands: Normal. No mass. Right kidney: Enlarged edematous RIGHT kidney with moderate hydronephrosis. Marked perinephric stranding with fluid along the paracolic gutter and extending to the perirenal fascia. RIGHT ureter is dilated with perinephric stranding. The cause of the obstruction is not a.. There is marked ureteral dilatation and perinephric stranding. No stones identified within the ureter. The ureter returns to a more normal caliber near the pelvic brim. Left kidney: Normal size LEFT kidney with mild perinephric stranding. No ureteral obstruction. Aorta: Mild atherosclerosis abdominal aorta with no aneurysm. Small amount of fluid in the RIGHT retroperitoneal space surrounding the kidney and ureter. GI tract: No GI tract obstruction. The appendix is not identified. The inflammatory changes associated with the RIGHT kidney and ureter extend to the expected location of the appendix. An appendix is not identified. There are calcifications in the RIGHT adnexa but these have been present on prior studies and have not changed significantly. Abdominal wall: Negative. No hernia. Pelvis: No significant amount of free fluid. Distal ureter is identified entering the urinary bladder normally. Osseous structures: Unremarkable. CT/CT kidney stone [id number] IMPRESSION: 1. Moderate RIGHT hydroureteronephrosis. RIGHT ureter is markedly dilated with periureteral stranding into the pelvis. The distal RIGHT ureter is not dilated . No high density focus in the ureter identified. Cause of the obstruction is n ot apparent. This obstruction may be due to a recently passed ureteral stone, s tricture, inflammation or neoplasm. 2. Significant amount of perinephric stranding in the retroperitoneum surround ing the RIGHT kidney with fluid extending along the pararenal fascia. 3. Appendix is not identified. 4. No renal calcification identified within either kidney.
[2025-09-10 11:50] LABS: Alanine Aminotransferase 13 U/L (0-33); Albumin Level 4.6 g/dL (3.5-5.2); Alkaline Phosphatase 95 U/L (35-105); Anion Gap 27.8 (5-19); Aspartate Amino Transferase 14 U/L (0-32); Blood Urea Nitrogen 50 mg/dL (8-23); Calcium 10.3 mg/dL (8.5-10.5); Carbon Dioxide 14 mmol/L (22-29); Chloride 100 mmol/L (98-107); Creatinine Clr Calc Pharmacy 12.7692; Globulin 3.8 g/dL (1.3-4.6); Glucose 272 mg/dL (65-115); Lipase 14 U/L (13-60); Magnesium 2.0 mg/dL (1.7-2.3); Osmolality Calculated 305 mOsm/kg (285-295); Potassium 5.8 mmol/L (3.5-5.1); Sodium 136 mmol/L (136-145); Total Protein 8.4 g/dL (6.6-8.7)
[2025-09-10 12:03] LABS: Lactic Sepsis W/Reflex 5.3 mmol/L (0.5-2.2)
[2025-09-10] MEDS: calcium gluconate 0.1 gm/mL 10% SDV 10mL 1 GM IVP (12:24)
[2025-09-10] MEDS: meropenem 1,000 mg SDV 1000 MG IVP ×2 (12:24→17:57)
[2025-09-10 12:25] LABS: Glucose Urine UA Trace (Normal); Nitrate Urine Negative (Negative); Specific Gravity, Urine 1.018 (1.005-1.030)
[2025-09-10 13:01] LABS: Add Urine Microscopic? YES
[2025-09-10 13:11] LABS: Reflex Lactate Order REFLEX LACTIC ORDERD
[2025-09-10] MEDS: sodium bicarbonate 150 MEQ in dextrose 5% 250 ML 700 MEQ IV (13:15)
[2025-09-10] MEDS: insulin regular-human 100 units/1 mL 10 UNIT IVP (13:43)
[2025-09-10 14:21] LABS: Lactic Acid level (Lactate) 4.5 mmol/L (0.5-2.2)
--- NOTE | 2025-09-10 16:22 | ECG_ITS ---
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 Measurements Intervals [place] Rate: 142 P: 67 TX: 130 QRS: 43 QRSD: 73 T: 130 QT: 240 QTc: 369 Interpretive Statements SINUS TACHYCARDIA ST DEVIATION AND MODERATE T-WAVE ABNORMALITY, CONSIDER LATERAL ISCHEMIA [-0.1+ mV T-WAVE IN I/aVL/V5/V6] Compared to ECG 03/29/2025 14:58:47 Prolonged QT interval no longer present Electronically Signed On 09-12-2025 23:01:48 CDT by Rell Childress M.D. [email or web address]
[2025-09-10 16:46] LABS: Anion Gap 21.4 (5-19); Blood Urea Nitrogen 44 mg/dL (8-23); Calcium 9.4 mg/dL (8.5-10.5); Carbon Dioxide 19 mmol/L (22-29); Chloride 109 mmol/L (98-107); Creatinine Clr Calc Pharmacy 12.7692; Glucose 113 mg/dL (65-115); Osmolality Calculated 312 mOsm/kg (285-295); Potassium 4.4 mmol/L (3.5-5.1); Sodium 145 mmol/L (136-145)
== END 2025-09-10 18:48 | disposition short-term general hospital (02) ==
LOC: ER 11:03 → ICU 12:43 → ER 15:36
PROVIDERS: Emergency Provider Family Medicine; PCP Family Medicine
DX: N17.9 Acute kidney failure, unspecified (principal); A41.9 Sepsis, unspecified organism; E87.5 Hyperkalemia; E13.9 Other specified diabetes mellitus without complications; N30.90 Cystitis, unspecified without hematuria; N13.30 Unspecified hydronephrosis
CPT/HCPCS: 36415; 71045; 74176; 80048; 80053; 81001; 82550; 83605; 83690; 83735; 85025; 87040; 87077; 87086; 87186; 93005; 96361; 96374; 96375; 96376; 99285; J0612; J1815; J2185; J7030; J7060; J9999

== ENCOUNTER → 2025-11-26 12:17 | Outpatient (BNVA) | payer MEDICARE, OTHER, SELFPAY | PROVIDERS: PCP Family Medicine; Visit Provider Internal Medicine | DX: I25.10 Atherosclerotic heart disease of native coronary artery without angina pectoris (principal); I10 Essential (primary) hypertension; E78.5 Hyperlipidemia, unspecified; E13.9 Other specified diabetes mellitus without complications; Z79.4 Long term (current) use of insulin; J44.9 Chronic obstructive pulmonary disease, unspecified; Z72.0 Tobacco use; Z98.61 Coronary angioplasty status; I25.2 Old myocardial infarction | CPT/HCPCS: 99214 ==